=== PATIENT | male | born 1950 | race Caucasian/White ===

== ENCOUNTER → 2020-07-15 08:17 | Outpatient (BNVA) | payer MEDICARE, SELFPAY | PROVIDERS: PCP Internal Medicine; Referring Provider Internal Medicine; Visit Provider Internal Medicine | DX: Z95.2 Presence of prosthetic heart valve (principal); Z51.81 Encounter for therapeutic drug level monitoring; Z79.01 Long term (current) use of anticoagulants | CPT/HCPCS: 85610; 99211 ==

== ENCOUNTER 2020-07-23 06:53 | Outpatient (REF) | payer MEDICARE, SELFPAY ==
[2020-07-23 07:52] LABS: MANUAL DIFF FLAG NO
[2020-07-23 07:56] LABS: Basophils Percent Auto 0.1 % (0-2); Eosinophils Absolute Auto 0.3 X10*3/uL (0.0-0.4); Eosinophils Percent Auto 4.4 % (0-4); Hematocrit 35.2 % (42-52); Hemoglobin 11.3 g/dl (14.0-18.0); Imm Gran Abs Auto 0.02 X10*3/uL (0.00-0.03); Imm Gran Pct Auto 0.3 % (0.0-0.4); Lymphocytes Absolute Auto 1.8 X10*3/uL (1.2-4.9); Lymphocytes Percent Auto 22.9 % (20-40); Mean Corpuscular HGB Conc 32.1 g/dl (31.0-36.0); Mean Corpuscular Hemoglobin 29.4 pg (27.0-33.0); Mean Corpuscular Volume 91.7 fL (80-98); Mean Platelet Volume 10.6 fL (9.4-12.4); Monocytes Absolute Auto 0.7 X10*3/uL (0.1-1.2); Monocytes Percent Auto 8.9 % (2-11); Neutrophils Absolute Auto 4.9 X10*3/uL (2.0-8.3); Neutrophils Percent Auto 63.4 % (45-73); Platelet Count 202 X10*3/uL (160-400); Red Blood Count 3.84 X10*6/uL (4.60-5.80); Red Cell Distribution Width 15.3 % (11.0-16.0); White Blood Count 7.7 X10*3/uL (4.8-10.8)
[2020-07-23 08:01] LABS: Glucose Urine UA NEG (NEG); Leukocyte Esterase Urine NEG (NEG); Nitrite Urine NEG (NEG); PH 7.5 (5.0-8.0); Specific Gravity - Urine 1.015 (1.005-1.025); Urine Blood 3+ (NEG); Urine Ketones NEG (NEG); Urine Protein 2+ MG/DL (NEG-TRACE)
[2020-07-23 08:23] LABS: Alanine Aminotransferase 18 U/L (0-40); Albumin Level 3.8 g/dL (3.5-5.0); Alkaline Phosphatase 61 U/L (39-117); Anion Gap 10 (12-20); Aspartate Amino Transferase 21 U/L (5-37); Bilirubin Total 0.5 mg/dL (0.0-1.0); Blood Urea Nitrogen 37 mg/dL (9-16); Calcium 8.9 mg/dL (8.4-10.2); Carbon Dioxide 27 mmol/L (22-29); Chloride 106 mmol/L (96-108); Cholesterol 163 mg/dL; Estimated Glomerular Filt Rate 57; Glucose Fasting 101 mg/dL (60-99); HDL Cholesterol 70 mg/dL; LDL Cholesterol Calculated 76 mg/dl; Potassium 4.6 mmol/l (3.3-5.1); Sodium 138 mmol/L (135-145); Total Protein 6.3 g/dL (6.5-8.0); Triglycerides 86 mg/dL
[2020-07-23 08:44] LABS: Appearance Urine HAZY; Color Urine YELLOW
[2020-07-23 08:52] LABS: Thyroid Stimulating Hormone 0.29 mIU/mL (0.32-4.0)
[2020-07-23 09:04] LABS: RBC Urine 30-49 /HPF (0); WBC Urine 0 /HPF (0-4)
[2020-07-23 09:27] LABS: Prostate Specific Antigen Scr 5.26 ng/mL (<0.05-4.0)
[2020-07-23 10:06] LABS: Reflex LDLD? No
== END 2020-07-23 06:54 | disposition home or self-care (01) ==
LOC: HO.LAB 06:53
PROVIDERS: PCP Internal Medicine; Visit Provider Internal Medicine
DX: Z00.00 Encounter for general adult medical examination without abnormal findings (principal); Z12.5 Encounter for screening for malignant neoplasm of prostate; E03.9 Hypothyroidism, unspecified; E78.00 Pure hypercholesterolemia, unspecified; I10 Essential (primary) hypertension
CPT/HCPCS: 36415; 80053; 80061; 81001; 81003; 84153; 84443; 85025

== ENCOUNTER → 2020-08-12 07:55 | Outpatient (BNVA) | payer MEDICARE, SELFPAY | PROVIDERS: PCP Internal Medicine; Visit Provider Internal Medicine | DX: Z95.2 Presence of prosthetic heart valve (principal); Z51.81 Encounter for therapeutic drug level monitoring; Z79.01 Long term (current) use of anticoagulants | CPT/HCPCS: 85610; 99211 ==

== ENCOUNTER → 2020-09-02 07:52 | Outpatient (BNVA) | payer MEDICARE, SELFPAY | PROVIDERS: PCP Internal Medicine; Visit Provider Internal Medicine | DX: Z95.2 Presence of prosthetic heart valve (principal); Z51.81 Encounter for therapeutic drug level monitoring; Z79.01 Long term (current) use of anticoagulants | CPT/HCPCS: 85610; 99211 ==

== ENCOUNTER → 2020-09-09 08:32 | Outpatient (BNVA) | payer MEDICARE, SELFPAY | PROVIDERS: PCP Internal Medicine; Visit Provider Internal Medicine | DX: Z95.2 Presence of prosthetic heart valve (principal); Z79.01 Long term (current) use of anticoagulants; Z51.81 Encounter for therapeutic drug level monitoring | CPT/HCPCS: 85610; 99211 ==

== ENCOUNTER 2020-09-20 11:17 | Outpatient (REF) | payer MEDICARE, SELFPAY ==
[2020-09-20 14:14] LABS: Prostate Specific Antigen 2.82 ng/mL (<0.05-4.0)
== END 2020-09-20 11:18 | disposition home or self-care (01) ==
LOC: HO.LAB 11:17
PROVIDERS: PCP Internal Medicine; Visit Provider Internal Medicine
DX: R97.20 Elevated prostate specific antigen [PSA] (principal); Z12.5 Encounter for screening for malignant neoplasm of prostate
CPT/HCPCS: 84153

== ENCOUNTER → 2020-10-07 08:36 | Outpatient (BNVA) | payer MEDICARE, SELFPAY | PROVIDERS: PCP Internal Medicine; Visit Provider Internal Medicine | DX: Z95.2 Presence of prosthetic heart valve (principal); Z51.81 Encounter for therapeutic drug level monitoring; Z79.01 Long term (current) use of anticoagulants | CPT/HCPCS: 85610; 99211 ==

== ENCOUNTER → 2020-10-09 14:11 | Outpatient (BNVA) | payer MEDICARE, SELFPAY | PROVIDERS: PCP Internal Medicine; Visit Provider Internal Medicine | DX: Z95.2 Presence of prosthetic heart valve (principal); Z51.81 Encounter for therapeutic drug level monitoring; Z79.01 Long term (current) use of anticoagulants | CPT/HCPCS: 85610; 99211 ==

== ENCOUNTER → 2020-10-14 08:03 | Outpatient (BNVA) | payer MEDICARE, SELFPAY | PROVIDERS: PCP Internal Medicine; Visit Provider Internal Medicine | DX: Z95.2 Presence of prosthetic heart valve (principal); Z51.81 Encounter for therapeutic drug level monitoring; Z79.01 Long term (current) use of anticoagulants | CPT/HCPCS: 85610; 99211 ==

== ENCOUNTER 2020-10-21 12:37 | Outpatient (REF) | payer MEDICARE, SELFPAY ==
[2020-10-21 13:58] LABS: Blood Urea Nitrogen 26 mg/dL (9-16); Estimated Glomerular Filt Rate > 60
== END 2020-10-21 12:38 | disposition home or self-care (01) ==
LOC: HO.LAB 12:37
PROVIDERS: PCP Internal Medicine; Visit Provider Internal Medicine
DX: N18.30 Chronic kidney disease, stage 3 unspecified (principal)
CPT/HCPCS: 36415; 82565; 84520

== ENCOUNTER → 2020-10-25 13:24 | Outpatient (BNVA) | payer MEDICARE, SELFPAY | PROVIDERS: PCP Internal Medicine; Visit Provider Internal Medicine | DX: Z95.2 Presence of prosthetic heart valve (principal); Z51.81 Encounter for therapeutic drug level monitoring; Z79.01 Long term (current) use of anticoagulants | CPT/HCPCS: 85610; 99211 ==

== ENCOUNTER → 2020-11-21 13:28 | Outpatient (BNVA) | payer MEDICARE, SELFPAY | PROVIDERS: PCP Internal Medicine; Visit Provider Internal Medicine | DX: Z95.2 Presence of prosthetic heart valve (principal); Z51.81 Encounter for therapeutic drug level monitoring; Z79.01 Long term (current) use of anticoagulants | CPT/HCPCS: 85610; 99211 ==

== ENCOUNTER → 2020-12-09 08:50 | Outpatient (BNVA) | payer MEDICARE, SELFPAY | PROVIDERS: PCP Internal Medicine; Visit Provider Internal Medicine | DX: Z95.2 Presence of prosthetic heart valve (principal); Z51.81 Encounter for therapeutic drug level monitoring; Z79.01 Long term (current) use of anticoagulants | CPT/HCPCS: 85610; 99211 ==

== ENCOUNTER → 2020-12-30 08:33 | Outpatient (BNVA) | payer MEDICARE, SELFPAY | PROVIDERS: PCP Internal Medicine; Visit Provider Internal Medicine | DX: Z95.2 Presence of prosthetic heart valve (principal); Z51.81 Encounter for therapeutic drug level monitoring; Z79.01 Long term (current) use of anticoagulants | CPT/HCPCS: 85610; 99211 ==

== ENCOUNTER → 2021-01-06 08:19 | Outpatient (BNVA) | payer MEDICARE, SELFPAY | PROVIDERS: PCP Internal Medicine; Visit Provider Internal Medicine | DX: Z95.2 Presence of prosthetic heart valve (principal); Z51.81 Encounter for therapeutic drug level monitoring; Z79.01 Long term (current) use of anticoagulants | CPT/HCPCS: 85610; 99211 ==

== ENCOUNTER → 2021-01-13 09:47 | Outpatient (BNVA) | payer MEDICARE, SELFPAY | PROVIDERS: PCP Internal Medicine; Visit Provider Internal Medicine | DX: Z95.2 Presence of prosthetic heart valve (principal); Z79.01 Long term (current) use of anticoagulants; Z51.81 Encounter for therapeutic drug level monitoring | CPT/HCPCS: 85610; 99211 ==

== ENCOUNTER → 2021-02-03 08:45 | Outpatient (BNVA) | payer MEDICARE, SELFPAY | PROVIDERS: PCP Internal Medicine; Visit Provider Internal Medicine | DX: Z95.2 Presence of prosthetic heart valve (principal); Z79.01 Long term (current) use of anticoagulants; Z51.81 Encounter for therapeutic drug level monitoring | CPT/HCPCS: 85610; 99211 ==

== ENCOUNTER → 2021-02-24 09:07 | Outpatient (BNVA) | payer MEDICARE, SELFPAY | PROVIDERS: PCP Internal Medicine; Visit Provider Internal Medicine | DX: Z95.2 Presence of prosthetic heart valve (principal); Z51.81 Encounter for therapeutic drug level monitoring; Z79.01 Long term (current) use of anticoagulants | CPT/HCPCS: 36415; 85610; 99212 ==

== ENCOUNTER → 2021-02-27 08:31 | Outpatient (BNVA) | payer MEDICARE, SELFPAY | PROVIDERS: PCP Internal Medicine; Visit Provider Internal Medicine | DX: Z13.89 Encounter for screening for other disorder (principal) | CPT/HCPCS: 99211 ==

== ENCOUNTER → 2021-03-06 09:30 | Outpatient (BNVA) | payer MEDICARE, SELFPAY | PROVIDERS: PCP Internal Medicine; Visit Provider Internal Medicine | DX: Z95.2 Presence of prosthetic heart valve (principal); Z51.81 Encounter for therapeutic drug level monitoring; Z79.01 Long term (current) use of anticoagulants | CPT/HCPCS: 85610; 99211 ==

== ENCOUNTER → 2021-03-11 09:37 | Outpatient (BNVA) | payer MEDICARE, SELFPAY | PROVIDERS: PCP Internal Medicine; Visit Provider Internal Medicine | DX: Z95.2 Presence of prosthetic heart valve (principal); Z51.81 Encounter for therapeutic drug level monitoring; Z79.01 Long term (current) use of anticoagulants | CPT/HCPCS: 85610; 99211 ==

== ENCOUNTER → 2021-03-25 09:28 | Outpatient (BNVA) | payer MEDICARE, SELFPAY | PROVIDERS: PCP Internal Medicine; Visit Provider Internal Medicine | DX: Z95.2 Presence of prosthetic heart valve (principal); Z51.81 Encounter for therapeutic drug level monitoring; Z79.01 Long term (current) use of anticoagulants | CPT/HCPCS: 85610; 99211 ==

== ENCOUNTER → 2021-04-23 09:59 | Outpatient (BNVA) | payer MEDICARE, SELFPAY | PROVIDERS: PCP Internal Medicine; Visit Provider Internal Medicine | DX: Z95.2 Presence of prosthetic heart valve (principal); Z51.81 Encounter for therapeutic drug level monitoring; Z79.01 Long term (current) use of anticoagulants | CPT/HCPCS: 85610; 99211 ==

== ENCOUNTER → 2021-05-07 07:59 | Outpatient (BNVA) | payer MEDICARE, SELFPAY | PROVIDERS: PCP Internal Medicine; Visit Provider Internal Medicine | DX: Z95.2 Presence of prosthetic heart valve (principal); Z51.81 Encounter for therapeutic drug level monitoring; Z79.01 Long term (current) use of anticoagulants | CPT/HCPCS: 85610; 99211 ==

== ENCOUNTER → 2021-05-21 08:26 | Outpatient (BNVA) | payer MEDICARE, SELFPAY | PROVIDERS: PCP Internal Medicine; Visit Provider Internal Medicine | DX: Z95.2 Presence of prosthetic heart valve (principal); Z51.81 Encounter for therapeutic drug level monitoring; Z79.01 Long term (current) use of anticoagulants | CPT/HCPCS: 85610; 99211 ==

== ENCOUNTER → 2021-06-04 08:19 | Outpatient (BNVA) | payer MEDICARE, SELFPAY | PROVIDERS: PCP Internal Medicine; Visit Provider Internal Medicine | DX: Z95.2 Presence of prosthetic heart valve (principal); Z51.81 Encounter for therapeutic drug level monitoring; Z79.01 Long term (current) use of anticoagulants | CPT/HCPCS: 85610; 99211 ==

== ENCOUNTER → 2021-06-23 08:29 | Outpatient (BNVA) | payer MEDICARE, SELFPAY | PROVIDERS: PCP Internal Medicine; Visit Provider Internal Medicine | DX: Z95.2 Presence of prosthetic heart valve (principal); Z51.81 Encounter for therapeutic drug level monitoring; Z79.01 Long term (current) use of anticoagulants | CPT/HCPCS: 85610; 99211 ==

== ENCOUNTER → 2021-07-14 08:19 | Outpatient (BNVA) | payer MEDICARE, SELFPAY | PROVIDERS: PCP Internal Medicine; Visit Provider Internal Medicine | DX: Z95.2 Presence of prosthetic heart valve (principal); Z51.81 Encounter for therapeutic drug level monitoring; Z79.01 Long term (current) use of anticoagulants | CPT/HCPCS: 85610; 99211 ==

== ENCOUNTER 2021-07-29 10:42 | Outpatient (REF) | payer MEDICARE, SELFPAY ==
[2021-07-29 10:46] LABS: MANUAL DIFF FLAG NO
[2021-07-29 11:23] LABS: Basophils Percent Auto 0.2 % (0-2); Eosinophils Absolute Auto 0.3 X10*3/uL (0.0-0.4); Eosinophils Percent Auto 3.9 % (0-4); Hematocrit 35.3 % (42-52); Hemoglobin 11.5 g/dl (14.0-18.0); Imm Gran Abs Auto 0.03 X10*3/uL (0.00-0.03); Imm Gran Pct Auto 0.4 % (0.0-0.4); Lymphocytes Absolute Auto 1.7 X10*3/uL (1.2-4.9); Lymphocytes Percent Auto 20.9 % (20-40); Mean Corpuscular HGB Conc 32.6 g/dl (31.0-36.0); Mean Corpuscular Hemoglobin 28.5 pg (27.0-33.0); Mean Corpuscular Volume 87.6 fL (80-98); Mean Platelet Volume 11.2 fL (9.4-12.4); Monocytes Absolute Auto 0.8 X10*3/uL (0.1-1.2); Monocytes Percent Auto 9.9 % (2-11); Neutrophils Absolute Auto 5.4 X10*3/uL (2.0-8.3); Neutrophils Percent Auto 64.7 % (45-73); Platelet Count 222 X10*3/uL (160-400); Red Blood Count 4.03 X10*6/uL (4.60-5.80); White Blood Count 8.3 X10*3/uL (4.8-10.8)
[2021-07-29 11:33] LABS: Alanine Aminotransferase 21 U/L (0-40); Albumin Level 3.8 g/dL (3.5-5.0); Alkaline Phosphatase 64 U/L (39-117); Anion Gap 12 (12-20); Aspartate Amino Transferase 24 U/L (5-37); Bilirubin Total 0.6 mg/dL (0.0-1.0); Blood Urea Nitrogen 36 mg/dL (9-16); Calcium 9.4 mg/dL (8.4-10.2); Carbon Dioxide 25 mmol/L (22-29); Chloride 109 mmol/L (96-108); Cholesterol 181 mg/dL; Estimated Glomerular Filt Rate 58; Glucose Fasting 96 mg/dL (60-99); HDL Cholesterol 84 mg/dL; LDL Cholesterol Calculated 88 mg/dl; Potassium 4.6 mmol/L (3.3-5.1); Sodium 141 mmol/L (135-145); Total Protein 6.4 g/dL (6.5-8.0); Triglycerides 46 mg/dL
[2021-07-29 11:41] LABS: Reflex LDLD? No
[2021-07-29 11:54] LABS: Appearance Urine CLEAR; Color Urine YELLOW; Glucose Urine UA NEG (NEG); Leukocyte Esterase Urine NEG (NEG); Nitrite Urine NEG (NEG); PH 6.5 (5.0-8.0); Urine Blood 2+ (NEG); Urine Ketones NEG (NEG); Urine Protein 2+ MG/DL (NEG-TRACE)
[2021-07-29 11:55] LABS: TSH reflex Free T4 0.22 uIU/mL (0.32-4.0)
[2021-07-29 12:26] LABS: WBC Urine 0 /HPF (0-4)
[2021-07-29 12:36] LABS: Free T4 (Free Thyroxine) 1.12 ng/dL (0.71-1.85)
== END 2021-07-29 10:43 | disposition home or self-care (01) ==
LOC: HO.LNP 10:42
PROVIDERS: Visit Provider Internal Medicine
DX: Z00.00 Encounter for general adult medical examination without abnormal findings (principal); Z12.5 Encounter for screening for malignant neoplasm of prostate; E03.9 Hypothyroidism, unspecified; E78.00 Pure hypercholesterolemia, unspecified; N18.1 Chronic kidney disease, stage 1; N40.0 Benign prostatic hyperplasia without lower urinary tract symptoms
CPT/HCPCS: 80053; 80061; 81001; 81003; 84153; 84439; 84443; 85025

== ENCOUNTER → 2021-08-11 08:27 | Outpatient (BNVA) | payer MEDICARE, SELFPAY | PROVIDERS: PCP Internal Medicine; Visit Provider Internal Medicine | DX: Z95.2 Presence of prosthetic heart valve (principal); Z51.81 Encounter for therapeutic drug level monitoring; Z79.01 Long term (current) use of anticoagulants | CPT/HCPCS: 85610; 99211 ==

== ENCOUNTER 2021-08-25 13:09 | Outpatient (REF) | payer MEDICARE, SELFPAY ==
--- NOTE | ~2021-08-25 | US_ITS ---
EXAMINATION: US EXTRACRANIAL CAROTID DUPLEX, BILATERAL CLINICAL INFORMATION: This is a 70-year-old male with bilateral carotid artery disease. Hyperlipidemia. COMPARISON: Comparison is made to a previous study dated 04/27/2017 which demonstrated bilateral 0-49% internal carotid artery stenoses. TECHNIQUE: Real-time ultrasound and Doppler techniques (integrating B-mode 2-D vascular images, Doppler spectral analysis and color-flow Doppler imaging) were utilized to interrogate the extracranial carotid arteries, the vertebral arteries and proximal subclavian arteries bilaterally. The degree of stenosis is determined by criteria similar to NASCET. FINDINGS: Right Side: 1. There is minimal atherosclerotic plaque seen in the bifurcation/proximal ICA region. 2. The common carotid artery PSV proximally is 65 cm/s and distally 96 cm/s. 3. The proximal internal carotid artery velocities are 101 cm/s systolic and 14 cm/s diastolic. 4. The proximal external carotid artery PSV is 120 cm/s. 5. The vertebral artery shows antegrade flow. 6. The subclavian artery waveforms are urinary. Left Side: 1. There is minimal atherosclerotic plaque seen in the bifurcation/proximal ICA region. 2. The common carotid artery PSV proximally is 78 cm/s and distally 72 cm/s. 3. The proximal internal carotid artery velocities are 69 cm/s systolic and 20 cm/s diastolic. 4. The proximal external carotid artery PSV is 91 cm/s. 5. The vertebral artery shows antegrade flow. 6. The subclavian artery waveforms are normal in. US/US carotid duplex BI IMPRESSION: 1. RIGHT: Minimal, non-hemodynamically significant stenosis of the proximal right internal carotid artery corresponding to a 0-49% stenosis by velocity criteria. 2. LEFT: Minimal, non-hemodynamically significant stenosis of the proximal left internal carotid artery corresponding to a 0-49% stenosis by velocity criteria. 3. There is no change in the category severity of disease when compared to the previous study dated 04/27/2017. 4. Incidental note is made of an arrhythmia during the duplex portion of the examination. This would be best evaluated by EKG.
== END 2021-08-25 13:10 | disposition home or self-care (01) ==
LOC: HO.US 13:09
PROVIDERS: PCP Internal Medicine; Visit Provider Internal Medicine
DX: I77.9 Disorder of arteries and arterioles, unspecified (principal)
CPT/HCPCS: 93880

== ENCOUNTER → 2021-09-08 08:13 | Outpatient (BNVA) | payer MEDICARE, SELFPAY | PROVIDERS: PCP Internal Medicine; Visit Provider Internal Medicine | DX: Z95.2 Presence of prosthetic heart valve (principal); Z51.81 Encounter for therapeutic drug level monitoring; Z79.01 Long term (current) use of anticoagulants | CPT/HCPCS: 85610; 99211 ==

== ENCOUNTER → 2021-09-15 09:28 | Outpatient (BNVA) | payer MEDICARE, SELFPAY | PROVIDERS: PCP Internal Medicine; Visit Provider Internal Medicine | DX: Z95.2 Presence of prosthetic heart valve (principal); Z51.81 Encounter for therapeutic drug level monitoring; Z79.01 Long term (current) use of anticoagulants | CPT/HCPCS: 85610; 99211 ==

== ENCOUNTER → 2021-10-06 08:44 | Outpatient (BNVA) | payer MEDICARE, SELFPAY | PROVIDERS: PCP Internal Medicine; Visit Provider Internal Medicine | DX: Z95.2 Presence of prosthetic heart valve (principal); Z51.81 Encounter for therapeutic drug level monitoring; Z79.01 Long term (current) use of anticoagulants | CPT/HCPCS: 85610; 99211 ==

== ENCOUNTER → 2021-10-13 08:01 | Outpatient (BNVA) | payer MEDICARE, SELFPAY | PROVIDERS: PCP Internal Medicine; Visit Provider Internal Medicine | DX: Z95.2 Presence of prosthetic heart valve (principal); Z51.81 Encounter for therapeutic drug level monitoring; Z79.01 Long term (current) use of anticoagulants | CPT/HCPCS: 85610; 99211 ==

== ENCOUNTER → 2021-10-24 08:03 | Outpatient (BNVA) | payer MEDICARE, SELFPAY | PROVIDERS: PCP Internal Medicine; Visit Provider Internal Medicine | DX: Z95.2 Presence of prosthetic heart valve (principal); Z51.81 Encounter for therapeutic drug level monitoring; Z79.01 Long term (current) use of anticoagulants | CPT/HCPCS: 85610; 99211 ==

== ENCOUNTER → 2021-10-28 08:30 | Outpatient (BNVA) | payer MEDICARE, SELFPAY | PROVIDERS: PCP Internal Medicine; Visit Provider Internal Medicine | DX: Z95.2 Presence of prosthetic heart valve (principal); Z51.81 Encounter for therapeutic drug level monitoring; Z79.01 Long term (current) use of anticoagulants | CPT/HCPCS: 85610; 99211 ==

== ENCOUNTER → 2021-11-11 08:03 | Outpatient (BNVA) | payer MEDICARE, SELFPAY | PROVIDERS: PCP Internal Medicine; Visit Provider Internal Medicine | DX: Z95.2 Presence of prosthetic heart valve (principal); Z51.81 Encounter for therapeutic drug level monitoring; Z79.01 Long term (current) use of anticoagulants | CPT/HCPCS: 85610; 99211 ==

== ENCOUNTER → 2021-12-03 08:02 | Outpatient (BNVA) | payer MEDICARE, SELFPAY | PROVIDERS: PCP Internal Medicine; Visit Provider Internal Medicine | DX: Z95.2 Presence of prosthetic heart valve (principal); Z51.81 Encounter for therapeutic drug level monitoring; Z79.01 Long term (current) use of anticoagulants | CPT/HCPCS: 85610; 99211 ==

== ENCOUNTER → 2021-12-15 08:25 | Outpatient (BNVA) | payer MEDICARE, SELFPAY | PROVIDERS: PCP Internal Medicine; Visit Provider Internal Medicine | DX: Z95.2 Presence of prosthetic heart valve (principal); Z51.81 Encounter for therapeutic drug level monitoring; Z79.01 Long term (current) use of anticoagulants | CPT/HCPCS: 85610; 99211 ==

== ENCOUNTER → 2022-01-05 08:48 | Outpatient (BNVA) | payer MEDICARE, SELFPAY | PROVIDERS: PCP Internal Medicine; Visit Provider Internal Medicine | DX: Z95.2 Presence of prosthetic heart valve (principal); Z51.81 Encounter for therapeutic drug level monitoring; Z79.01 Long term (current) use of anticoagulants | CPT/HCPCS: 85610; 99211 ==

== ENCOUNTER → 2022-02-02 08:16 | Outpatient (BNVA) | payer MEDICARE, SELFPAY | PROVIDERS: PCP Internal Medicine; Visit Provider Internal Medicine | DX: Z95.2 Presence of prosthetic heart valve (principal); Z79.01 Long term (current) use of anticoagulants; Z51.81 Encounter for therapeutic drug level monitoring | CPT/HCPCS: 85610 ==

== ENCOUNTER → 2022-03-02 08:24 | Outpatient (BNVA) | payer MEDICARE, SELFPAY | PROVIDERS: PCP Internal Medicine; Visit Provider Internal Medicine | DX: Z95.2 Presence of prosthetic heart valve (principal); Z79.01 Long term (current) use of anticoagulants; Z51.81 Encounter for therapeutic drug level monitoring | CPT/HCPCS: 85610; 99211 ==

== ENCOUNTER 2022-03-12 10:45 | Outpatient (REF) | payer MEDICARE, SELFPAY ==
[2022-03-12 11:03] LABS: Alanine Aminotransferase 22 U/L (0-40); Albumin Level 3.9 g/dL (3.5-5.0); Alkaline Phosphatase 65 U/L (39-117); Aspartate Amino Transferase 24 U/L (5-37); Bilirubin Direct 0.4 mg/dL (0.0-0.5); Bilirubin Total 0.8 mg/dL (0.0-1.0); Cholesterol 154 mg/dL; HDL Cholesterol 60 mg/dL; LDL Cholesterol Calculated 73 mg/dl; Total Protein 6.7 g/dL (6.5-8.0); Triglycerides 105 mg/dL
[2022-03-12 13:45] LABS: Reflex LDLD? No
== END 2022-03-12 10:46 | disposition home or self-care (01) ==
LOC: HO.LNP 10:45
PROVIDERS: PCP Internal Medicine; Visit Provider Internal Medicine
DX: E78.00 Pure hypercholesterolemia, unspecified (principal)
CPT/HCPCS: 80061; 80076

== ENCOUNTER → 2022-03-30 08:00 | Outpatient (BNVA) | payer MEDICARE, SELFPAY | PROVIDERS: PCP Internal Medicine; Visit Provider Internal Medicine | DX: Z95.2 Presence of prosthetic heart valve (principal); Z79.01 Long term (current) use of anticoagulants; Z51.81 Encounter for therapeutic drug level monitoring | CPT/HCPCS: 85610; 99211 ==

== ENCOUNTER → 2022-04-27 08:06 | Outpatient (BNVA) | payer MEDICARE, SELFPAY | PROVIDERS: PCP Internal Medicine; Visit Provider Internal Medicine | DX: Z95.2 Presence of prosthetic heart valve (principal); Z79.01 Long term (current) use of anticoagulants; Z51.81 Encounter for therapeutic drug level monitoring | CPT/HCPCS: 85610; 99211 ==

== ENCOUNTER → 2022-05-01 08:06 | Outpatient (BNVA) | payer MEDICARE, SELFPAY | PROVIDERS: PCP Internal Medicine; Visit Provider Internal Medicine | DX: Z95.2 Presence of prosthetic heart valve (principal); Z79.01 Long term (current) use of anticoagulants; Z51.81 Encounter for therapeutic drug level monitoring | CPT/HCPCS: 85610; 99211 ==

== ENCOUNTER → 2022-05-11 08:20 | Outpatient (BNVA) | payer MEDICARE, SELFPAY | PROVIDERS: PCP Internal Medicine; Visit Provider Internal Medicine | DX: Z95.2 Presence of prosthetic heart valve (principal); Z79.01 Long term (current) use of anticoagulants; Z51.81 Encounter for therapeutic drug level monitoring | CPT/HCPCS: 85610; 99211 ==

== ENCOUNTER 2022-05-25 07:25 | Outpatient (REF) | payer MEDICARE, SELFPAY ==
--- NOTE | ~2022-05-25 | CT_ITS ---
EXAMINATION: CT CHEST WITHOUT CONTRAST CLINICAL INFORMATION: Solitary pulmonary nodule. COMPARISON: None TECHNIQUE: Multidetector volumetric CT imaging of the chest was done. Axial MIP volume rendering provided. Sagittal and coronal reformatted images were obtained. This CT examination was performed using dose optimization techniques as appropriate, variously including the following: *Automated exposure control *Adjustment of mA and/or kV according to patient size (this includes techniques or standardized protocols for targeted exams where dose is matched to indication/reason for exam; i.e. extremities or head) *Use of iterative reconstruction technique DLP: 234 mGy-cm FINDINGS: ACCOUNTING OFFICER: Unremarkable. LUNGS: There is persistent linear scarring in the left upper lobe. Several 2 mm and 3 mm calcified nodules in the right lower lobe are stable. There is a 4 mm perivascular noncalcified nodule right lower lobe axial image 333/9, new 2 mm noncalcified nodule right lower lobe axial image 396/9 and 393/9. MEDIASTINUM: Heart size and the great vessels are normal caliber. Central trachea and the bronchi widely patent. The coronary artery calcifications and aortic valve calcifications. No change in the aortic valve prosthesis. No pericardial effusion. Small shotty lymph nodes seen in the mediastinum. PLEURA: There is no pleural effusion. No pleural mass or thickening. AXILLA: No abnormal axillary lymph nodes seen. The chest wall is unremarkable. UPPER ABDOMEN: Visualized liver, spleen, pancreas and bilateral adrenal glands unremarkable. OSSEOUS STRUCTURES: There is moderate spondylosis throughout dorsal spine. No lytic process seen. CT/CT chest wo con IMPRESSION: Previously visualized calcified nodules are stable. There is a new 4 mm noncalcified nodule perivascular right lower lobe. Also visualized is a 2 mm noncalcified nodule right lower lobe. Small shotty lymph nodes. Recommend follow-up CT chest without contrast in one year based on patient's risk factors. Fleischner guidelines were followed.
== END 2022-05-25 07:26 | disposition home or self-care (01) ==
LOC: HO.CT 07:25
PROVIDERS: PCP Internal Medicine; Visit Provider Internal Medicine
DX: R91.1 Solitary pulmonary nodule (principal)
CPT/HCPCS: 71250

== ENCOUNTER → 2022-06-01 07:58 | Outpatient (BNVA) | payer MEDICARE, SELFPAY | PROVIDERS: PCP Internal Medicine; Visit Provider Internal Medicine | DX: Z95.2 Presence of prosthetic heart valve (principal); Z51.81 Encounter for therapeutic drug level monitoring; Z79.01 Long term (current) use of anticoagulants | CPT/HCPCS: 85610; 99211 ==

== ENCOUNTER → 2022-06-17 07:59 | Outpatient (BNVA) | payer MEDICARE, SELFPAY | PROVIDERS: PCP Internal Medicine; Visit Provider Internal Medicine | DX: Z95.2 Presence of prosthetic heart valve (principal); Z51.81 Encounter for therapeutic drug level monitoring; Z79.01 Long term (current) use of anticoagulants | CPT/HCPCS: 85610; 99211 ==

== ENCOUNTER → 2022-06-24 08:05 | Outpatient (BNVA) | payer MEDICARE, SELFPAY | PROVIDERS: PCP Internal Medicine; Visit Provider Internal Medicine | DX: Z95.2 Presence of prosthetic heart valve (principal); Z79.01 Long term (current) use of anticoagulants; Z51.81 Encounter for therapeutic drug level monitoring | CPT/HCPCS: 85610; 99211 ==

== ENCOUNTER → 2022-07-06 08:00 | Outpatient (BNVA) | payer MEDICARE, SELFPAY | PROVIDERS: PCP Internal Medicine; Visit Provider Internal Medicine | DX: Z95.2 Presence of prosthetic heart valve (principal); Z79.01 Long term (current) use of anticoagulants; Z51.81 Encounter for therapeutic drug level monitoring | CPT/HCPCS: 85610; 99211 ==

== ENCOUNTER → 2022-07-10 07:59 | Outpatient (BNVA) | payer MEDICARE, SELFPAY | PROVIDERS: PCP Internal Medicine; Visit Provider Internal Medicine | DX: Z95.2 Presence of prosthetic heart valve (principal); Z79.01 Long term (current) use of anticoagulants; Z51.81 Encounter for therapeutic drug level monitoring | CPT/HCPCS: 85610; 99211 ==

== ENCOUNTER → 2022-07-13 08:03 | Outpatient (BNVA) | payer MEDICARE, SELFPAY | PROVIDERS: PCP Internal Medicine; Visit Provider Internal Medicine | DX: Z95.2 Presence of prosthetic heart valve (principal); Z51.81 Encounter for therapeutic drug level monitoring; Z79.01 Long term (current) use of anticoagulants | CPT/HCPCS: 85610; 99211 ==

== ENCOUNTER → 2022-07-23 08:09 | Outpatient (BNVA) | payer MEDICARE, SELFPAY | PROVIDERS: PCP Internal Medicine; Visit Provider Internal Medicine | DX: Z95.2 Presence of prosthetic heart valve (principal); Z79.01 Long term (current) use of anticoagulants; Z51.81 Encounter for therapeutic drug level monitoring | CPT/HCPCS: 85610; 99211 ==

== ENCOUNTER 2022-07-31 11:08 | Outpatient (REF) | payer MEDICARE, SELFPAY ==
[2022-07-31 11:12] LABS: MANUAL DIFF FLAG NO
[2022-07-31 11:57] LABS: Appearance Urine Clear; Basophils Percent Auto 0.2 % (0-2); Color Urine Yellow; Eosinophils Absolute Auto 0.5 X10*3/uL (0.0-0.4); Eosinophils Percent Auto 5.3 % (0-4); Glucose Urine UA Negative (Negative); Hematocrit 43.6 % (42.0-52.0); Hemoglobin 14.3 g/dl (14.0-18.0); Imm Gran Abs Auto 0.03 X10*3/uL (0.00-0.03); Imm Gran Pct Auto 0.3 % (0.0-0.4); Leukocyte Esterase Urine Negative (Negative); Lymphocytes Absolute Auto 2.2 X10*3/uL (1.2-4.9); Lymphocytes Percent Auto 24.6 % (20-40); Mean Corpuscular HGB Conc 32.8 g/dl (31.0-36.0); Mean Corpuscular Hemoglobin 29.9 pg (27.0-33.0); Mean Corpuscular Volume 91.2 fL (80.0-98.0); Mean Platelet Volume 10.4 fL (9.4-12.4); Monocytes Absolute Auto 0.9 X10*3/uL (0.1-1.2); Monocytes Percent Auto 9.6 % (2-11); Neutrophils Absolute Auto 5.4 x10*3/uL (2.0-8.3); Nitrite Urine Negative (Negative); Platelet Count 262 X10*3/uL (160-400); Red Blood Count 4.78 X10*6/uL (4.60-5.80); Red Cell Distribution Width 13.7 % (11.0-16.0); Specific Gravity - Urine 1.015 (1.005-1.025); UMIC TRIGGER UA YES; Urine Blood Large (3+) (Negative); Urine Ketones Negative (Negative); Urine Protein 100 (2+) mg/dL (Neg-Trace); White Blood Count 9.1 X10*3/uL (4.8-10.8)
[2022-07-31 12:08] LABS: Bacteria Urine None Seen (None Seen); Hyaline Casts Urine 0-2 /LPF (0-2); RBC Urine >20 /HPF (0-2); Squamous Epithelial Cell Urine 0-2 /HPF (0-2); WBC Urine 0-5 /HPF (0-5)
[2022-07-31 12:41] LABS: Alanine Aminotransferase 21 U/L (0-40); Albumin Level 4.2 g/dL (3.5-5.0); Alkaline Phosphatase 92 U/L (39-117); Anion Gap 18 (12-20); Aspartate Amino Transferase 24 U/L (5-37); Bilirubin Total 0.7 mg/dL (0.0-1.0); Blood Urea Nitrogen 38 mg/dL (9-16); Calcium 9.6 mg/dL (8.4-10.2); Carbon Dioxide 24 mmol/L (22-29); Chloride 104 mmol/L (96-108); Cholesterol 212 mg/dL; Estimated Glomerular Filt Rate 43; Glucose Fasting 108 mg/dL (60-99); HDL Cholesterol 86 mg/dL; LDL Cholesterol Calculated 110 mg/dl; PSA,Total (Free>4and<10) 4.04 ng/mL (0.00-4.00); Potassium 4.5 mmol/L (3.3-5.1); Sodium 141 mmol/L (135-145); TSH reflex Free T4 0.04 uIU/mL (0.32-4.0); Total Protein 7.6 g/dL (6.5-8.0); Triglycerides 83 mg/dL
[2022-07-31 14:01] LABS: Free T4 (Free Thyroxine) 1.51 ng/dL (0.71-1.85)
[2022-08-03 09:41] LABS: Free Prostate Spec Ag 1.5 ng/mL; Percent Free Prostate Spec Ag 31 % (calc) (>25); Prostate Specific Ag Total 4.8 ng/mL (< OR = 4.0)
== END 2022-07-31 11:09 | disposition home or self-care (01) ==
LOC: HO.LNP 11:08
PROVIDERS: Visit Provider Internal Medicine
DX: Z00.00 Encounter for general adult medical examination without abnormal findings (principal); I10 Essential (primary) hypertension; E03.9 Hypothyroidism, unspecified; E78.00 Pure hypercholesterolemia, unspecified; N18.1 Chronic kidney disease, stage 1; N40.0 Benign prostatic hyperplasia without lower urinary tract symptoms; Z12.5 Encounter for screening for malignant neoplasm of prostate
CPT/HCPCS: 80053; 80061; 81001; 84153; 84154; 84439; 84443; 85025

== ENCOUNTER → 2022-09-11 13:12 | Outpatient (BNVA) | payer MEDICARE, SELFPAY | PROVIDERS: PCP Internal Medicine; Visit Provider Internal Medicine | DX: Z95.2 Presence of prosthetic heart valve (principal); Z79.01 Long term (current) use of anticoagulants; Z51.81 Encounter for therapeutic drug level monitoring | CPT/HCPCS: 85610; 99211 ==

== ENCOUNTER → 2022-10-08 08:07 | Outpatient (BNVA) | payer MEDICARE, SELFPAY | PROVIDERS: PCP Internal Medicine; Visit Provider Internal Medicine | DX: Z95.2 Presence of prosthetic heart valve (principal); Z79.01 Long term (current) use of anticoagulants; Z51.81 Encounter for therapeutic drug level monitoring | CPT/HCPCS: 85610; 99211 ==

== ENCOUNTER 2022-10-08 10:19 | Outpatient (REF) | payer MEDICARE, SELFPAY ==
[2022-10-08 11:15] LABS: PSA,Total (Free>4and<10) 3.65 ng/mL (0.00-4.00)
== END 2022-10-08 10:20 | disposition home or self-care (01) ==
LOC: HO.LNP 10:19
PROVIDERS: PCP Internal Medicine; Visit Provider Internal Medicine
DX: N40.0 Benign prostatic hyperplasia without lower urinary tract symptoms (principal); Z12.5 Encounter for screening for malignant neoplasm of prostate
CPT/HCPCS: 84153

== ENCOUNTER → 2022-10-13 15:21 | Outpatient (BNVA) | payer MEDICARE, SELFPAY | PROVIDERS: PCP Internal Medicine; Visit Provider Internal Medicine | DX: Z95.2 Presence of prosthetic heart valve (principal); Z79.01 Long term (current) use of anticoagulants; Z51.81 Encounter for therapeutic drug level monitoring | CPT/HCPCS: 85610; 99211 ==

== ENCOUNTER → 2022-10-19 08:00 | Outpatient (BNVA) | payer MEDICARE, SELFPAY | PROVIDERS: PCP Internal Medicine; Visit Provider Internal Medicine | DX: Z95.2 Presence of prosthetic heart valve (principal); Z79.01 Long term (current) use of anticoagulants; Z51.81 Encounter for therapeutic drug level monitoring | CPT/HCPCS: 85610; 99211 ==

== ENCOUNTER 2022-11-02 10:14 | Emergency (ER) | payer MEDICARE, SELFPAY ==
--- NOTE | ~2022-11-02 | XR_ITS ---
EXAMINATION: XR WRIST, RIGHT CLINICAL INFORMATION: Pain and swelling following injury. COMPARISON: None TECHNIQUE: Right wrist is imaged in 4 views. FINDINGS: There are posttraumatic changes in the right wrist, some could be chronic or subacute. There is dorsal and volar soft tissue swelling. The ulnar variance is neutral. The distal radius and ulnar appear intact. There is abnormal widening between the lunate and navicular with proximal migration of the capitate consistent with scapholunate ligament disruption. The navicular appears foreshortened and there are questionable small ossific fragments adjacent to the proximal pole. No dislocation. There are atherosclerotic calcifications vasculature. XR/XR wrist RT 2V IMPRESSION: -Scapholunate ligament disruption with proximal migration capitate. -Dorsal and volar soft tissue swelling with foreshortening of navicular and suspicion of small ossific fragments adjacent to proximal pole. Further characterization of the carpal bones for acute fracture may be performed with noncontrast CT wrist.
[2022-11-02 10:17] VITALS: BP 165/75; PULSE 84; RESP 16; TEMP 35.8; O2SAT 98; BMI 34.5
--- NOTE | 2022-11-02 10:34 | ED_ITS ---
HPI - Extremity Problem General Chief complaint: Extremity Injury, Upper Stated complaint: R wrist pain Time Seen by Provider: 11/02/22 10:34 Source: patient Mode of arrival: ambulatory Limitations: no limitations History of Present Illness HPI Narrative: Patient is a 72 year old assigned male at with a history of anti-coagulant use presenting to the emergency department today with right wrist pain. Patient states that 6-8 weeks ago he hit his wrist with his phone and it has been painful ever since. Patient states that he is also noticing some decreased ROM of both of his shoulders. Patient denies any dizziness, lightheadedness, abdominal pain, nausea, vomiting, fever, chills, blurry vision, double vision, loss of vision, chest pain, difficulty breathing, shortness of breath, back pain, night sweats, pain with urination, increased urinary frequency, increased urinary urgency, blood in his urine or stool, syncope or a near syncopal episode, recent trauma or falls, bowel incontinence, bladder incontinence, bowel retention, bladder retention, or any other complaints at this time. MD Complaint: extremity pain Onset (ago): week(s) (6-8) Pain Consistency: constant Severity scale (1-10): 3 Relieving factors: nothing Exacerbating factors: nothing Associated symptoms: denies other symptoms Related Data Home Medications Medication Instructions Recorded Confirmed warfarin 5 mg tablet 5 mg PO DAILY 10/07/20 10/19/22 amlodipine 10 mg tablet 10 mg PO DAILY 01/06/21 10/19/22 metoprolol succinate 25 mg 25 mg PO DAILY 01/06/21 10/19/22 tablet,extended release 24 hr rosuvastatin 40 mg tablet 40 mg PO DAILY 01/06/21 10/19/22 tamsulosin 0.4 mg capsule (Flomax) 0.4 mg PO DAILY 05/07/21 10/19/22 losartan 25 mg tablet 25 mg PO DAILY 10/06/21 10/19/22 ferrous sulfate 325 mg (65 mg 65 mg PO DAILY 11/11/21 10/19/22 iron) tablet (iron) levothyroxine 150 mcg tablet 150 mcg PO QAM 10/19/22 10/19/22 Allergies Allergy/AdvReac Type Severity Reaction Status Date / Time diphenhydramine Allergy Intermediate RESTLESS Verified 11/02/22 10:19 [From BENADRYL] LEGS lisinopril [LISINOPRIL] Allergy Intermediate DIZZINESS Verified 11/02/22 10:19 Lisiopril/HCTZ Allergy Unknown dizziness Uncoded 10/19/22 08:15 Review of Systems Constitutional: Constitutional: Reports no additional constitutional complaints, Denies chills, Denies fever(s) and Denies night sweats Eyes: Eyes: Reports no additional eye complaints, Denies blurry vision, Denies change in vision, Denies diplopia, Denies eye discharge, Denies loss of vision and Denies eye pain ENT: Denies dizziness Cardiovascular: Cardiovascular: Reports no additional cardiovascular complaints, Denies chest pain, Denies lightheadedness, Denies Loss of Consciousness and Denies dyspnea Respiratory: Respiratory: Reports no additional respiratory complaints and Denies dyspnea Gastrointestinal: Gastrointestinal: Reports no additional gastrointestinal complaints, Denies abdominal pain, Denies melena, Denies hematochezia, Denies change in bowel habits and Denies change in stool character Genitourinary: Genitourinary: Reports no additional male genitourinary complai nts, Denies hematuria, Denies oliguria, Denies difficulty urinating, Denies dysuria, Denies urinary frequency, Denies urinary hesitancy, Denies urinary incontinence and Denies urinary urgency Musculoskeletal: Musculoskeletal: Reports no additional musculoskeletal complaints, Denies numbness and Denies tingling Comments: right wrist pain Neurologic: Denies dizziness, Denies loss of vision, Denies numbness and Denies tingling Psychiatric: Psychiatric: Reports no additional psychiatric complaints Endocrine: Endocrine: Reports no additional endocrine complaints Hematologic/Lymphatic: Hematologic/Lymphatic: Reports no additional hematologic/lymphatic complaints Allergic/Immunologic: Allergic/Immunologic: Reports no additional allergic/immunologic complaints [facility] Past Medical History Attestation statement: The following information was validated with the patient. Source: old records reviewed and nursing notes reviewed Social History Social History Advance Directives: No Advance Directives Information Provided: Yes Physical Exam Vital Signs: Vital Signs: Last Vital Signs Temp 96.5 F L 11/02/22 10:17 Pulse 84 11/02/22 10:17 Resp 16 11/02/22 10:17 BP 165/75 H 11/02/22 10:17 Pulse Ox 98 11/02/22 10:17 O2 Del Method 11/02/22 10:17 BMI result Body Mass Index 34.5 Const: General: cooperative, no acute distress, alert and awake Nutritional Appearance: well nourished Orientation/consciousness: patient oriented x3 Limitations: no limitations HEENT: Head: Yes normal to inspection and Yes atraumatic Ears: hearing grossly normal bilaterally and external ears normal General nose exam: Normal external nose present, no nasal discharge noted and no epistaxis Face and sinus: Yes normal facial exam, No abrasion and No laceration Mouth: Normal oral and palatal mucosa present, no drooling and no muffled voice Eyes: General: appearance normal, both eyes and all related structures Periorbital: periorbital findings normal Eyelids: Yes eyelids normal Conjunctivae: conjunctivae normal Pupils: Equal, round and reactive pupils present EOM: EOMs intact bilaterally Neck: Neck: Yes normal visual inspection, Yes full ROM and Yes no lymphadenopathy Chest: Chest palpation & inspection: normal inspection of the chest Resp: Effort & Inspection: normal respiratory effort and able to speak in complete sentences Auscultation: clear to auscultation bilaterally Cardio: Rate: regular rate Rhythm: regular rhythm GI: Inspection: Yes normal to inspection Palpation (GI): Soft to palpation, not firm, nontender, no guarding and not rigid Neuro: General: patient oriented x3 and moves all extremities Cranial nerves: Yes Equal, round and reactive pupils present Cognition (Neuro): normal cognition Motor exam (neuro): 5/5 motor strength present throughout Sensory Exam: Normal double simultaneous stimulation for sensation Coordination: [id number] test normal Extrem: General: Yes normal to inspection, Yes full ROM and Yes capillary refill normal Psych: Appearance: grossly normal Mental Status: mental status grossly normal Affect: normal affect Attitude: cooperative Thought process: Normal thought process present Thought content: Normal thought content present Insight: Good insight present (Psych) Medical Decision Making Medical Decision Making MDM Narrative: Patient is a 72 year old assigned male at with a history of anti-coagulant use presenting to the emergency department today with right wrist pain and bilateral shoulder pain. Patient's physical exam was unremarkable. Patient's right wrist x-ray showed scapholunate ligament disruption. I explained my physical exam findings as well as all test results to the patient. I answered all questions asked by the patient. Patient's right wrist was placed into a velcro splint, without incident. I stressed the importance of the patient taking his medication as prescribed. I stressed the importance of the patient followi ng up with his primary care provider and an orthopedic provider. I stressed the importance of the patient returning to the emergency department immediately if his symptoms were to worsen or if he were to develop any dizziness, shortness of breath, difficulty breathing, chest pain, blurry vision, loss of vision, nausea, vomiting, abdominal pain, fever, chills, back pain, or any other complaints. Patient verbalized agreement and understanding with this treatment plan and discharge. Differential Diagnosis Differential Diagnoses: The differential diagnosis associated with the presentation includes wrist injury, wrist pain Radiology Impression Discussion of test interpretation with radiology: I have reviewed the radiologist's reading. Radiologist Impression: My interpretation is in agreement with the radiologist's impression of this imaging study. EXAMINATION: XR WRIST, RIGHT CLINICAL INFORMATION: Pain and swelling following injury.? COMPARISON: None? TECHNIQUE: Right wrist is imaged in 4 views. FINDINGS: There are posttraumatic changes in the right wrist, some could be chronic or subacute. There is dorsal and volar soft tissue swelling. The ulnar variance is neutral. The distal radius and ulnar appear intact. There is abnormal widening between the lunate and navicular with proximal migration of the capitate consistent with scapholunate ligament disruption. The navicular appears foreshortened and there are questionable small ossific fragments adjacent to the proximal pole. No dislocation. There are atherosclerotic calcifications vasculature. XR/XR wrist RT 2V IMPRESSION: -Scapholunate ligament disruption with proximal migration capitate. ? -Dorsal and volar soft tissue swelling with foreshortening of navicular and suspicion of small ossific fragments adjacent to proximal pole. Further characterization of the carpal bones for acute fracture may be performed with noncontrast CT wrist. Dictated By: Rojas Duron MD Signed By: Electronically signed by Rojas Duron MD 11/02/22 1132 Procedures Orthopedic Splinting/Casting Injury #1: Side: right Upper Extremity Injury Location: wrist Upper Extremity Immobilizer: thumb spica Discharge Plan Discharge Clinical Impression: Injury of wrist Patient Disposition: Home, Self-Care Instructions: Wrist Injury (ED) Additional Instructions: Follow up with your primary care provider and an orthopedic provider. Return to the emergency department immediately if your symptoms worsen or if you develop any dizziness, shortness of breath, difficulty breathing, chest pain, blurry vision, loss of vision, nausea, vomiting, abdominal pain, fever, chills, back pain, or any other complaints. Prescriptions: No Action amlodipine 10 mg tablet 10 mg PO DAILY rosuvastatin 40 mg tablet 40 mg PO DAILY metoprolol succinate 25 mg tablet extended release 24 hr 25 mg PO DAILY warfarin 5 mg tablet 5 mg PO DAILY Protocol: Dose Management Condition: Wednesday (Week One) Dose/Route: 10 mg Instruction: 2 x 5 mg tablets Condition: Wednesday Dose/Route: 12.5 mg Instruction: 2.5 x 5 mg tablets Condition: Wednesday Dose/Route: 10 mg Instruction: 2 x 5 mg tablets Condition: Wednesday Dose/Route: 12.5 mg Instruction: 2.5 x 5 mg tablets Condition: Dose/Route: 10 mg Instruction: 2 x 5 mg tablets Condition: Wednesday Dose/Route: 12.5 mg Instruction: 2.5 x 5 mg tablets Condition: Wednesday Dose/Route: 10 mg Instruction: 2 x 5 mg tablets Condition: Wednesday (Week Two) Dose/Route: 10 mg Instruction: 2 x 5 mg tablets Condition: Wednesday Dose/Route: 12.5 mg Instruction: 2.5 x 5 mg tablets Condition: Wednesday Dose/Route: 10 mg Instruction: 2 x 5 mg tablets Condition: Wednesday Dose/Route: 12.5 mg Instruction: 2.5 x 5 mg tablets Condition: Dose/Route: 10 mg Instruction: 2 x 5 mg tablets Condition: Wednesday Dose/Route: 12.5 mg Instruction: 2.5 x 5 mg tablets Condition: Wednesday Dose/Route: 10 mg Instruction: 2 x 5 mg tablets Protocol Text: Adjustment Start Date: Wednesday10/19/22 INR Value: 2.6 INR Date: 10/19/22 Recheck Date: 11/09/22 Additional Instructions: KEEP UP THE GREENS WHILE TAKING TYLNEOL AND WEEKLY - EAT A MIX OF ORANGE REDS AND GREENS tamsulosin [Flomax] 0.4 mg capsule 0.4 mg PO DAILY losartan 25 mg tablet 25 mg PO DAILY ferrous sulfate [iron] 325 mg (65 mg iron) tablet 65 mg PO DAILY levothyroxine 150 mcg tablet 150 mcg PO QAM Referrals: [facility] [Provider Group] (Call to establish and follow up with an orthopedic provider. ) Teto Gary MD [Primary Care Provider] - Print Language: Arabic
--- NOTE | 2022-11-02 11:14 | PC.NURSE ---
pt resting on stretcher at this time, no apparent distress, awaiting xray results
== END 2022-11-02 11:49 | disposition home or self-care (01) ==
PROVIDERS: Emergency Provider Emergency Medicine; PCP Internal Medicine
DX: S69.91XA Unspecified injury of right wrist, hand and finger(s), initial encounter (principal); W22.8XXA Striking against or struck by other objects, initial encounter; Z79.01 Long term (current) use of anticoagulants; Z79.02 Long term (current) use of antithrombotics/antiplatelets; Z79.899 Other long term (current) drug therapy; Y93.89 Activity, other specified; Y92.019 Unspecified place in single-family (private) house as the place of occurrence of the external cause; Y99.9 Unspecified external cause status
CPT/HCPCS: 29125; 73100; 99283

== ENCOUNTER → 2022-11-09 08:03 | Outpatient (BNVA) | payer MEDICARE, SELFPAY | PROVIDERS: PCP Internal Medicine; Visit Provider Internal Medicine | DX: Z95.2 Presence of prosthetic heart valve (principal); Z51.81 Encounter for therapeutic drug level monitoring; Z79.01 Long term (current) use of anticoagulants | CPT/HCPCS: 85610; 99211 ==

== ENCOUNTER → 2022-11-23 08:03 | Outpatient (BNVA) | payer MEDICARE, SELFPAY | PROVIDERS: PCP Internal Medicine; Visit Provider Internal Medicine | DX: Z95.2 Presence of prosthetic heart valve (principal); Z79.01 Long term (current) use of anticoagulants; Z51.81 Encounter for therapeutic drug level monitoring | CPT/HCPCS: 85610; 99211 ==

== ENCOUNTER → 2022-12-10 13:54 | Outpatient (BNVA) | payer MEDICARE, SELFPAY | PROVIDERS: PCP Internal Medicine; Visit Provider Internal Medicine | DX: Z95.2 Presence of prosthetic heart valve (principal); Z79.01 Long term (current) use of anticoagulants; Z51.81 Encounter for therapeutic drug level monitoring | CPT/HCPCS: 85610; 99211 ==

== ENCOUNTER → 2022-12-21 08:00 | Outpatient (BNVA) | payer MEDICARE, SELFPAY | PROVIDERS: PCP Internal Medicine; Visit Provider Internal Medicine | DX: Z95.2 Presence of prosthetic heart valve (principal); Z79.01 Long term (current) use of anticoagulants; Z51.81 Encounter for therapeutic drug level monitoring | CPT/HCPCS: 85610; 99211 ==

== ENCOUNTER → 2022-12-28 08:01 | Outpatient (BNVA) | payer MEDICARE, SELFPAY | PROVIDERS: PCP Internal Medicine; Visit Provider Internal Medicine | DX: Z95.2 Presence of prosthetic heart valve (principal); Z79.01 Long term (current) use of anticoagulants; Z51.81 Encounter for therapeutic drug level monitoring | CPT/HCPCS: 85610; 99211 ==

== ENCOUNTER → 2023-01-11 08:03 | Outpatient (BNVA) | payer MEDICARE, SELFPAY | PROVIDERS: PCP Internal Medicine; Visit Provider Internal Medicine | DX: Z95.2 Presence of prosthetic heart valve (principal); Z79.01 Long term (current) use of anticoagulants; Z51.81 Encounter for therapeutic drug level monitoring | CPT/HCPCS: 85610; 99211 ==

== ENCOUNTER → 2023-01-29 07:47 | Outpatient (BNVA) | payer MEDICARE, SELFPAY | PROVIDERS: PCP Internal Medicine; Visit Provider Internal Medicine | DX: Z95.2 Presence of prosthetic heart valve (principal); Z79.01 Long term (current) use of anticoagulants; Z51.81 Encounter for therapeutic drug level monitoring | CPT/HCPCS: 85610; 99211 ==

== ENCOUNTER → 2023-02-01 08:00 | Outpatient (BNVA) | payer MEDICARE, SELFPAY | PROVIDERS: PCP Internal Medicine; Visit Provider Internal Medicine | DX: Z95.2 Presence of prosthetic heart valve (principal); Z79.01 Long term (current) use of anticoagulants; Z51.81 Encounter for therapeutic drug level monitoring | CPT/HCPCS: 85610; 99211 ==

== ENCOUNTER → 2023-02-08 08:36 | Outpatient (BNVA) | payer MEDICARE, SELFPAY | PROVIDERS: PCP Internal Medicine; Visit Provider Internal Medicine | DX: Z95.2 Presence of prosthetic heart valve (principal); Z79.01 Long term (current) use of anticoagulants; Z51.81 Encounter for therapeutic drug level monitoring | CPT/HCPCS: 85610; 99211 ==

== ENCOUNTER → 2023-02-12 07:52 | Outpatient (BNVA) | payer MEDICARE, SELFPAY | PROVIDERS: PCP Internal Medicine; Visit Provider Internal Medicine | DX: Z95.2 Presence of prosthetic heart valve (principal); Z79.01 Long term (current) use of anticoagulants; Z51.81 Encounter for therapeutic drug level monitoring | CPT/HCPCS: 85610; 99211 ==

== ENCOUNTER 2023-02-15 10:25 | Outpatient (REF) | payer MEDICARE, SELFPAY ==
--- NOTE | ~2023-02-15 | XR_ITS ---
EXAMINATION: XR CHEST CLINICAL INFORMATION: Intercostal pain COMPARISON: Chest CT 05/25/2022 TECHNIQUE: 2 views of the chest were obtained. FINDINGS: Cardiac silhouette is normal in size. Patient is status post valvular replacement. The lungs are well aerated. There is no lobar consolidation. No pleural effusion or pneumothorax. Moderate degenerative changes of the spine. XR/XR chest 2V IMPRESSION: No acute pulmonary pathology.
== END 2023-02-15 10:26 | disposition home or self-care (01) ==
LOC: HO.XRAY 10:25
PROVIDERS: PCP Internal Medicine; Visit Provider Internal Medicine
DX: R07.82 Intercostal pain (principal)
CPT/HCPCS: 71046

== ENCOUNTER 2023-02-15 10:31 | Outpatient (REF) | payer MEDICARE, SELFPAY ==
[2023-02-15 11:34] LABS: Alanine Aminotransferase 18 U/L (0-40); Albumin Level 3.8 g/dL (3.5-5.0); Alkaline Phosphatase 71 U/L (39-117); Aspartate Amino Transferase 21 U/L (5-37); Bilirubin Direct 0.3 mg/dL (0.0-0.5); Bilirubin Total 0.8 mg/dL (0.0-1.0); Cholesterol 144 mg/dL; HDL Cholesterol 50 mg/dL; LDL Cholesterol Calculated 78 mg/dl; Total Protein 6.5 g/dL (6.5-8.0); Triglycerides 82 mg/dL
[2023-02-15 11:50] LABS: TSH reflex Free T4 0.05 uIU/mL (0.32-4.0)
[2023-02-15 12:29] LABS: Free T4 (Free Thyroxine) 1.34 ng/dL (0.71-1.85)
[2023-02-15 12:37] LABS: Reflex LDLD? No
== END 2023-02-15 10:32 | disposition home or self-care (01) ==
LOC: HO.LNP 10:31
PROVIDERS: Visit Provider Internal Medicine
DX: E03.9 Hypothyroidism, unspecified (principal); E78.00 Pure hypercholesterolemia, unspecified
CPT/HCPCS: 80061; 80076; 84439; 84443

== ENCOUNTER → 2023-02-16 08:00 | Outpatient (BNVA) | payer MEDICARE, SELFPAY | PROVIDERS: PCP Internal Medicine; Visit Provider Internal Medicine | DX: Z95.2 Presence of prosthetic heart valve (principal); Z79.01 Long term (current) use of anticoagulants; Z51.81 Encounter for therapeutic drug level monitoring | CPT/HCPCS: 85610; 99212 ==

== ENCOUNTER → 2023-02-19 14:08 | Outpatient (BNVA) | payer MEDICARE, SELFPAY | PROVIDERS: PCP Internal Medicine; Visit Provider Internal Medicine | DX: Z95.2 Presence of prosthetic heart valve (principal); Z79.01 Long term (current) use of anticoagulants; Z51.81 Encounter for therapeutic drug level monitoring | CPT/HCPCS: 85610; 99211 ==

== ENCOUNTER 2023-03-05 07:59 | Outpatient (REF) | payer MEDICARE, SELFPAY ==
[2023-03-05 09:14] LABS: INTERNATIONAL NORM RATIO 6.9 (0.9-1.1)
== END 2023-03-05 08:00 | disposition home or self-care (01) ==
LOC: HO.LAB 07:59
PROVIDERS: PCP Internal Medicine; Visit Provider Internal Medicine
DX: Z95.2 Presence of prosthetic heart valve (principal); Z51.81 Encounter for therapeutic drug level monitoring; Z79.01 Long term (current) use of anticoagulants
CPT/HCPCS: 36415; 85610; 99211

== ENCOUNTER → 2023-03-09 07:59 | Outpatient (BNVA) | payer MEDICARE, SELFPAY | PROVIDERS: PCP Internal Medicine; Visit Provider Internal Medicine | DX: Z95.2 Presence of prosthetic heart valve (principal); Z79.01 Long term (current) use of anticoagulants; Z51.81 Encounter for therapeutic drug level monitoring | CPT/HCPCS: 85610; 99211 ==

== ENCOUNTER → 2023-03-15 08:18 | Outpatient (BNVA) | payer MEDICARE, SELFPAY | PROVIDERS: PCP Internal Medicine; Visit Provider Internal Medicine | DX: Z95.2 Presence of prosthetic heart valve (principal); Z79.01 Long term (current) use of anticoagulants; Z51.81 Encounter for therapeutic drug level monitoring | CPT/HCPCS: 85610; 99211 ==

== ENCOUNTER → 2023-03-29 13:30 | Outpatient (BNVA) | payer MEDICARE, SELFPAY | PROVIDERS: PCP Internal Medicine; Visit Provider Internal Medicine | DX: Z95.2 Presence of prosthetic heart valve (principal); Z79.01 Long term (current) use of anticoagulants; Z51.81 Encounter for therapeutic drug level monitoring | CPT/HCPCS: 85610; 99211 ==

== ENCOUNTER → 2023-04-19 08:28 | Outpatient (BNVA) | payer MEDICARE, SELFPAY | PROVIDERS: PCP Internal Medicine; Visit Provider Internal Medicine | DX: Z95.2 Presence of prosthetic heart valve (principal); Z79.01 Long term (current) use of anticoagulants; Z51.81 Encounter for therapeutic drug level monitoring | CPT/HCPCS: 85610; 99211 ==

== ENCOUNTER 2023-05-10 08:35 | Outpatient (AMB) | payer MEDICARE, SELFPAY ==
--- NOTE | 2023-05-10 08:40 | MHC.OFFVISCO ---
Intake Intake Visit Reasons: Anticoagulation Allergies diphenhydramine [From BENADRYL] Allergy (Intermediate, Verified 05/10/23 08:37) RESTLESS LEGS lisinopril [LISINOPRIL] Allergy (Intermediate, Verified 05/10/23 08:37) DIZZINESS Lisiopril/HCTZ Allergy (Unknown, Uncoded 05/10/23 08:37) dizziness Medication List - Last Reconciled 05/10/23 by Noemi Holder RN amlodipine 10 mg PO DAILY levothyroxine 175 mcg PO QAM losartan 25 mg PO DAILY metoprolol succinate ER 25 mg PO DAILY rosuvastatin 40 mg PO DAILY tamsulosin (Flomax) 0.4 mg PO DAILY warfarin 5 mg See Protocol PO DAILY Nursing Note INR: 2.2- in therapeutic range Medications and supplements reviewed- states no longer taking iron No changes in health, diet, medications, or supplements, Denies any signs and symptoms of bleeding or bruising or clotting. Bleeding, bruising, clotting discussed Nutritional guidance given Dose: 7.5mg x 1, 10mg x 6 F/U INR: 2 weeks Patient verbalizes understanding of instructions given Coding Level of Care Code Est Patient Level 1 Diagnoses Current use of anticoagulant therapy Z79.01 Results AMB INR Fingerstick AMB INR Fingerstick 2.2 Last Edit by Noemi Holder RN on 05/10/23 08:41 Assessment & Plan Assessment & Plan (1) Current use of anticoagulant therapy: Code(s): Z79.01 - intermediate card tender (current) 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
[2023-05-10 08:41] LABS: Prothrombin Time Whole Bld POC 26.8 sec (11.1-13.5); ~PT, ~INR - Anti Coag Clinic 2.2 (0.9-1.1)
== END 2023-05-10 08:45 | disposition home or self-care (01) ==
LOC: HO.ACS 08:35
PROVIDERS: PCP Internal Medicine; Visit Provider Internal Medicine
DX: Z79.01 Long term (current) use of anticoagulants (principal)

== ENCOUNTER → 2023-05-10 08:35 | Outpatient (BNVA) | payer MEDICARE, SELFPAY | PROVIDERS: PCP Internal Medicine; Visit Provider Internal Medicine | DX: Z95.2 Presence of prosthetic heart valve (principal); Z79.01 Long term (current) use of anticoagulants; Z51.81 Encounter for therapeutic drug level monitoring | CPT/HCPCS: 85610; 99211 ==

== ENCOUNTER 2023-05-14 11:30 | Outpatient (REF) | payer MEDICARE, SELFPAY ==
[2023-05-14 15:33] LABS: TSH reflex Free T4 0.02 uIU/mL (0.32-4.0)
[2023-05-14 16:52] LABS: Free T4 (Free Thyroxine) 1.06 ng/dL (0.71-1.85)
== END 2023-05-14 11:31 | disposition home or self-care (01) ==
LOC: HO.LNP 11:30
PROVIDERS: Visit Provider Internal Medicine
DX: E03.9 Hypothyroidism, unspecified (principal)
CPT/HCPCS: 84439; 84443

== ENCOUNTER 2023-05-24 08:17 | Outpatient (AMB) | payer MEDICARE, SELFPAY ==
--- NOTE | 2023-05-24 08:38 | MHC.OFFVISCO ---
Intake Intake Visit Reasons: Anticoagulation Allergies diphenhydramine [From BENADRYL] Allergy (Intermediate, Verified 05/24/23 08:33) RESTLESS LEGS lisinopril [LISINOPRIL] Allergy (Intermediate, Verified 05/24/23 08:33) DIZZINESS Lisiopril/HCTZ Allergy (Unknown, Uncoded 05/24/23 08:33) dizziness Medication List - Last Reconciled 05/24/23 by Noemi Holder RN amlodipine 10 mg PO DAILY levothyroxine 150 mcg PO DAILY losartan 25 mg PO DAILY metoprolol succinate ER 25 mg PO DAILY rosuvastatin 40 mg PO DAILY tamsulosin (Flomax) 0.4 mg PO DAILY warfarin 5 mg See Protocol PO DAILY Nursing Note INR 4.9? out of therapeutic range Medications and supplements reviewed Patient status: pt states 'had a drink' the other day pt states upcoming cataract surgery Medications or supplements: levothyroxine reduced to 150mcg approx one week ago Diet: same Denies any signs and symptoms of bleeding or clotting or unusual bruising Bleeding, bruising, clotting discussed - aware of risk of bleeding/bruising-avoid high risk activity Nutritional guidance given: eat greens to lower inr, no reds for 2 days Dose: hold today F/U INR Date : pt req wednesday05/31/23?? Patient verbalizing understanding of instructions given. Coding Level of Care Code Est Patient Level 1 Diagnoses Current use of anticoagulant therapy Z79.01 Assessment & Plan Assessment & Plan (1) Current use of anticoagulant therapy: Code(s): Z79.01 - intermediate manager (current) 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
[2023-05-24 08:40] LABS: Prothrombin Time Whole Bld POC 58.6 sec (11.1-13.5); ~PT, ~INR - Anti Coag Clinic 4.9 (0.9-1.1)
== END 2023-05-24 09:00 | disposition home or self-care (01) ==
LOC: HO.ACS 08:17
PROVIDERS: PCP Internal Medicine; Visit Provider Internal Medicine
DX: Z79.01 Long term (current) use of anticoagulants (principal)

== ENCOUNTER → 2023-05-24 08:17 | Outpatient (BNVA) | payer MEDICARE, SELFPAY | PROVIDERS: PCP Internal Medicine; Visit Provider Internal Medicine | DX: Z95.2 Presence of prosthetic heart valve (principal); Z79.01 Long term (current) use of anticoagulants; Z51.81 Encounter for therapeutic drug level monitoring | CPT/HCPCS: 85610; 99211 ==

== ENCOUNTER 2023-05-31 09:57 | Outpatient (AMB) | payer MEDICARE, SELFPAY ==
[2023-05-31 10:02] LABS: Prothrombin Time Whole Bld POC 26.2 sec (11.1-13.5); ~PT, ~INR - Anti Coag Clinic 2.2 (0.9-1.1)
--- NOTE | 2023-05-31 10:04 | MHC.OFFVISCO ---
Intake Intake Visit Reasons: Anticoagulation Allergies diphenhydramine [From BENADRYL] Allergy (Intermediate, Verified 05/31/23 09:57) RESTLESS LEGS lisinopril [LISINOPRIL] Allergy (Intermediate, Verified 05/31/23 09:57) DIZZINESS Lisiopril/HCTZ Allergy (Unknown, Uncoded 05/31/23 09:57) dizziness Medication List - Last Reconciled 05/31/23 by Nicole Mercado RN amlodipine 10 mg PO DAILY levothyroxine 150 mcg PO DAILY losartan 25 mg PO DAILY metoprolol succinate ER 25 mg PO DAILY metoprolol succinate ER 50 mg PO DAILY rosuvastatin 40 mg PO DAILY tamsulosin (Flomax) 0.4 mg PO DAILY warfarin 5 mg See Protocol PO DAILY Nursing Note INR: 2.2 in therapeutic range Medications and supplements reviewed TO HAVE CATARACT SURGERY 06/01/23, NO HOLD OF WARFARIN, PT INSTRUCTED TO CALL WITH DATE OF NEXT CATARACT TO HAVE INR 1-3 DAYS BEFORE OR PER MD TO WHEN SEEING PCP TODAY Denies any signs and symptoms of bleeding or bruising or clotting. Bleeding, bruising, clotting discussed Nutritional guidance given - EAT A MIX OF FRUITS AND VEGETABLES, KEEP UP WEEKLY GREENS Dose: 7.5MG SUN/ 10MG X 6 DAYS F/U INR: 2 WEEKS Patient verbalizes understanding of instructions given Coding Level of Care Code Est Patient Level 1 Diagnoses Current use of anticoagulant therapy Z79.01 Assessment & Plan Assessment & Plan (1) Current use of anticoagulant therapy: Code(s): Z79.01 - halfway (current) 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
== END 2023-05-31 10:10 | disposition home or self-care (01) ==
LOC: HO.ACS 09:57
PROVIDERS: PCP Internal Medicine; Visit Provider Internal Medicine
DX: Z79.01 Long term (current) use of anticoagulants (principal)

== ENCOUNTER → 2023-05-31 09:57 | Outpatient (BNVA) | payer MEDICARE, SELFPAY | PROVIDERS: PCP Internal Medicine; Visit Provider Internal Medicine | DX: Z95.2 Presence of prosthetic heart valve (principal); Z79.01 Long term (current) use of anticoagulants; Z51.81 Encounter for therapeutic drug level monitoring | CPT/HCPCS: 85610; 99211 ==

== ENCOUNTER 2023-06-08 10:01 | Outpatient (REF) | payer MEDICARE, SELFPAY ==
--- NOTE | ~2023-06-08 | CT_ITS ---
EXAMINATION: CT CHEST WITHOUT CONTRAST CLINICAL INFORMATION: Pulmonary nodule COMPARISON: Previous chest CT May 2022 and chest x-ray February 2023 TECHNIQUE: Multidetector volumetric CT imaging of the chest was done. Axial MIP volume rendering provided. Sagittal and coronal reformatted images were obtained. This CT examination was performed using dose optimization techniques as appropriate, variously including the following: *Automated exposure control *Adjustment of mA and/or kV according to patient size (this includes techniques or standardized protocols for targeted exams where dose is matched to indication/reason for exam; i.e. extremities or head) *Use of iterative reconstruction technique DLP: 228 mGy-cm FINDINGS: LUNGS: Clustered small 2 mm calcified and noncalcified nodules in the right lower lobe for example axial image 399 series 5 are stable. No other pulmonary nodule seen. No suspicious pulmonary nodule seen. Stable linear scarring or chronic subsegmental atelectasis in the left upper lobe. 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 Normal heart size. No pericardial effusion. Severe coronary artery calcification. Small mediastinal lymph nodes. No enlarged lymph nodes. CORONARY ARTERY CALCIFICATION: Severe PLEURA: There is no pleural effusion. No pleural mass or thickening. AXILLA: No lymphadenopathy. UPPER ABDOMEN: Bilateral renal cysts. No imaging follow-up recommended. OSSEOUS STRUCTURES: Median sternotomy. Degenerative changes of the spine. CT/CT chest wo IV con IMPRESSION: Stable small right lower lobe pulmonary nodules. According to Fleischner 2017 criteria, no chest CT follow-up recommended. Stable linear scarring or chronic subsegmental atelectasis in the left upper lobe. Postoperative changes from CABG and aortic valve replacement. Fleischner guidelines were followed.
== END 2023-06-08 10:02 | disposition home or self-care (01) ==
LOC: HO.CT 10:01
PROVIDERS: PCP Internal Medicine; Visit Provider Internal Medicine
DX: R91.8 Other nonspecific abnormal finding of lung field (principal)
CPT/HCPCS: 71250

== ENCOUNTER 2023-06-15 07:56 | Outpatient (AMB) | payer MEDICARE, SELFPAY ==
--- NOTE | 2023-06-15 08:20 | MHC.OFFVISCO ---
Intake Intake Visit Reasons: Anticoagulation Allergies diphenhydramine [From BENADRYL] Allergy (Intermediate, Verified 06/15/23 08:16) RESTLESS LEGS lisinopril [LISINOPRIL] Allergy (Intermediate, Verified 06/15/23 08:16) DIZZINESS Lisiopril/HCTZ Allergy (Unknown, Uncoded 06/15/23 08:16) dizziness Medication List - Last Reconciled 06/15/23 by Noemi Holedr RN amlodipine 10 mg PO DAILY levothyroxine 150 mcg PO DAILY losartan 25 mg PO DAILY metoprolol succinate ER 50 mg PO DAILY rosuvastatin 40 mg PO DAILY tamsulosin (Flomax) 0.4 mg PO DAILY warfarin 5 mg See Protocol PO DAILY Nursing Note INR 1.1-?? out of therapeutic range- pt states may have missed doses Medications and supplements reviewed Patient status: no c.o. pt states having cataract surg right eye 07/19/23, left on 08/02/23 Medications or supplements: no changes Diet: same, ate spinach yesterday Denies any signs and symptoms of bleeding or clotting or unusual bruising Bleeding, bruising, clotting discussed - aware at risk for clotting, s/s discussed Nutritional guidance given: no greens , eat reds to raise inr Dose: 12.5mg today and tomm then cont reg 10mg x 6, 7.5mg x 1 on wednesday F/U INR Date : refused earlier appt than wednesday06/21/23? due to md appts and work Patient verbalizing understanding of instructions given. pcp dr mustapha lewis's office called with low inr, dosing and f/u appt. spoke to refugio at 0945, aware of cataract surg and ? missed doses Coding Level of Care Code Est Patient Level 1 Diagnoses Current use of anticoagulant therapy Z79.01 Assessment & Plan Assessment & Plan (1) Current use of anticoagulant therapy: Code(s): Z79.01 - alf (current) 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
[2023-06-15 08:21] LABS: Prothrombin Time Whole Bld POC 12.9 sec (11.1-13.5); ~PT, ~INR - Anti Coag Clinic 1.1 (0.9-1.1)
== END 2023-06-15 08:53 | disposition home or self-care (01) ==
LOC: HO.ACS 07:56
PROVIDERS: PCP Internal Medicine; Visit Provider Internal Medicine
DX: Z79.01 Long term (current) use of anticoagulants (principal)

== ENCOUNTER → 2023-06-15 07:56 | Outpatient (BNVA) | payer MEDICARE, SELFPAY | PROVIDERS: PCP Internal Medicine; Visit Provider Internal Medicine | DX: Z95.2 Presence of prosthetic heart valve (principal); Z79.01 Long term (current) use of anticoagulants; Z51.81 Encounter for therapeutic drug level monitoring | CPT/HCPCS: 85610; 99211 ==

== ENCOUNTER 2023-06-21 08:20 | Outpatient (AMB) | payer MEDICARE, SELFPAY ==
--- NOTE | 2023-06-21 08:24 | MHC.OFFVISCO ---
Intake Intake Visit Reasons: Anticoagulation Allergies diphenhydramine [From BENADRYL] Allergy (Intermediate, Verified 06/21/23 08:21) RESTLESS LEGS lisinopril [LISINOPRIL] Allergy (Intermediate, Verified 06/21/23 08:21) DIZZINESS Lisiopril/HCTZ Allergy (Unknown, Uncoded 06/21/23 08:21) dizziness Medication List - Last Reconciled 06/21/23 by Noemi Holder RN amlodipine 10 mg PO DAILY levothyroxine 150 mcg PO DAILY losartan 25 mg PO DAILY metoprolol succinate ER 50 mg PO DAILY rosuvastatin 40 mg PO DAILY tamsulosin (Flomax) 0.4 mg PO DAILY warfarin 5 mg See Protocol PO DAILY Nursing Note INR 1.4-out of therapeutic range Medications and supplements reviewed Patient status: upcoming cataract surgery 07/19/23 and 08/02/23 Medications or supplements: no changes Diet: same Denies any signs and symptoms of bleeding or clotting or unusual bruising Bleeding, bruising, clotting discussed Nutritional guidance given: no greens for 2 days, eat reds to raise Dose: F/U INR Date : pt ref earlier than 1 week?? Patient verbalizing understanding of instructions given. 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
[2023-06-21 08:25] LABS: Prothrombin Time Whole Bld POC 16.9 sec (11.1-13.5); ~PT, ~INR - Anti Coag Clinic 1.4 (0.9-1.1)
== END 2023-06-21 08:30 | disposition home or self-care (01) ==
LOC: HO.ACS 08:20
PROVIDERS: PCP Internal Medicine; Visit Provider Internal Medicine
DX: Z79.01 Long term (current) use of anticoagulants (principal)

== ENCOUNTER → 2023-06-21 08:20 | Outpatient (BNVA) | payer MEDICARE, SELFPAY | PROVIDERS: PCP Internal Medicine; Visit Provider Internal Medicine | DX: Z95.2 Presence of prosthetic heart valve (principal); Z79.01 Long term (current) use of anticoagulants; Z51.81 Encounter for therapeutic drug level monitoring | CPT/HCPCS: 85610; 99211 ==

== ENCOUNTER → 2023-06-28 09:44 | Outpatient (BNVA) | payer MEDICARE, SELFPAY | PROVIDERS: PCP Internal Medicine; Visit Provider Internal Medicine | DX: Z95.2 Presence of prosthetic heart valve (principal); Z79.01 Long term (current) use of anticoagulants; Z51.81 Encounter for therapeutic drug level monitoring | CPT/HCPCS: 85610; 99211 ==

== ENCOUNTER 2023-07-05 08:25 | Outpatient (AMB) | payer MEDICARE, SELFPAY ==
--- NOTE | 2023-07-05 08:46 | MHC.OFFVISCO ---
Intake Intake Visit Reasons: Anticoagulation Allergies diphenhydramine [From BENADRYL] Allergy (Intermediate, Verified 07/05/23 08:36) RESTLESS LEGS lisinopril [LISINOPRIL] Allergy (Intermediate, Verified 07/05/23 08:36) DIZZINESS Lisiopril/HCTZ Allergy (Unknown, Uncoded 07/05/23 08:36) dizziness Medication List - Last Reconciled 07/05/23 by Nicole Mercado RN amlodipine 10 mg PO DAILY levothyroxine 150 mcg PO DAILY losartan 25 mg PO DAILY metoprolol succinate ER 50 mg PO DAILY rosuvastatin 40 mg PO DAILY tamsulosin (Flomax) 0.4 mg PO DAILY warfarin 5 mg See Protocol PO DAILY Nursing Note PT VISIT DELAYED DUE TO METER INTERFACING ISSUES 7 MINUTES INR: in therapeutic range Medications and supplements reviewed No changes in health, diet, medications, or supplements, Denies any signs and symptoms of bleeding or bruising or clotting. Bleeding, bruising, clotting discussed Nutritional guidance given - REVIEW FOOD LIST KEEP Dose: KEEP SAME 7.5MG X 1 DAY/ 10MG X 6 DAYS F/U INR: 07/15/23Wednesday BEFORE CATARACT ON 07/19/23Wednesday Patient verbalizes understanding of instructions given Coding Level of Care Code Est Patient Level 1 Diagnoses Current use of anticoagulant therapy Z79.01 Assessment & Plan Assessment & Plan (1) Current use of anticoagulant therapy: Code(s): Z79.01 - terminologist (current) 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
[2023-07-05 08:48] LABS: Prothrombin Time Whole Bld POC 38.5 sec (11.1-13.5); ~PT, ~INR - Anti Coag Clinic 3.2 (0.9-1.1)
== END 2023-07-05 08:53 | disposition home or self-care (01) ==
LOC: HO.ACS 08:25
PROVIDERS: PCP Internal Medicine; Visit Provider Internal Medicine
DX: Z79.01 Long term (current) use of anticoagulants (principal)

== ENCOUNTER → 2023-07-05 08:25 | Outpatient (BNVA) | payer MEDICARE, SELFPAY | PROVIDERS: PCP Internal Medicine; Visit Provider Internal Medicine | DX: Z95.2 Presence of prosthetic heart valve (principal); Z79.01 Long term (current) use of anticoagulants; Z51.81 Encounter for therapeutic drug level monitoring | CPT/HCPCS: 85610; 99211 ==

== ENCOUNTER → 2023-07-21 08:10 | Outpatient (BNVA) | payer MEDICARE, SELFPAY | PROVIDERS: PCP Internal Medicine; Visit Provider Internal Medicine | DX: Z95.2 Presence of prosthetic heart valve (principal); Z79.01 Long term (current) use of anticoagulants; Z51.81 Encounter for therapeutic drug level monitoring | CPT/HCPCS: 85610; 99211 ==

== ENCOUNTER 2023-08-04 08:16 | Outpatient (AMB) | payer MEDICARE, SELFPAY ==
--- NOTE | 2023-08-04 08:34 | MHC.OFFVISCO ---
Intake Intake Visit Reasons: Anticoagulation Allergies diphenhydramine [From BENADRYL] Allergy (Intermediate, Verified 08/04/23 08:30) RESTLESS LEGS lisinopril [LISINOPRIL] Allergy (Intermediate, Verified 08/04/23 08:30) DIZZINESS Lisiopril/HCTZ Allergy (Unknown, Uncoded 08/04/23 08:30) dizziness Medication List - Last Reconciled 08/04/23 by Noemi Holder RN amlodipine 10 mg PO DAILY levothyroxine 150 mcg PO DAILY losartan 25 mg PO DAILY metoprolol succinate ER 50 mg PO DAILY rosuvastatin 40 mg PO DAILY tamsulosin (Flomax) 0.4 mg PO DAILY warfarin 5 mg See Protocol PO DAILY Nursing Note INR 1.6- out of therapeutic range of 2-3 Medications and supplements reviewed Patient status: s/p cataract surgery on 08/02/23- pt held warfarin on 08/01/23 Medications or supplements: eye drops post op Diet: same Denies any signs and symptoms of bleeding or clotting or unusual bruising Bleeding, bruising, clotting discussed - some ecchymosis under left eye post surgery Nutritional guidance given: no greens for 2-3 days, will eat reds to raise Dose: 12.5mg today then cont reg 7.5mg x 1, 10mg x 6 F/U INR Date : 1 week?? Patient verbalizing understanding of instructions given. 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
[2023-08-04 08:45] LABS: Prothrombin Time Whole Bld POC 19.8 sec (11.1-13.5); ~PT, ~INR - Anti Coag Clinic 1.6 (0.9-1.1)
== END 2023-08-04 08:42 | disposition home or self-care (01) ==
LOC: HO.ACS 08:16
PROVIDERS: PCP Internal Medicine; Visit Provider Internal Medicine
DX: Z79.01 Long term (current) use of anticoagulants (principal)

== ENCOUNTER → 2023-08-04 08:16 | Outpatient (BNVA) | payer MEDICARE, SELFPAY | PROVIDERS: PCP Internal Medicine; Visit Provider Internal Medicine | DX: Z95.2 Presence of prosthetic heart valve (principal); Z79.01 Long term (current) use of anticoagulants; Z51.81 Encounter for therapeutic drug level monitoring | CPT/HCPCS: 85610; 99211 ==

== ENCOUNTER 2023-08-10 08:36 | Outpatient (AMB) | payer MEDICARE, SELFPAY ==
[2023-08-10 08:45] LABS: Prothrombin Time Whole Bld POC 35.6 sec (11.1-13.5)
--- NOTE | 2023-08-10 08:47 | MHC.OFFVISCO ---
Intake Intake Visit Reasons: Anticoagulation Allergies diphenhydramine [From BENADRYL] Allergy (Intermediate, Verified 08/10/23 08:40) RESTLESS LEGS lisinopril [LISINOPRIL] Allergy (Intermediate, Verified 08/10/23 08:40) DIZZINESS Lisiopril/HCTZ Allergy (Unknown, Uncoded 08/10/23 08:40) dizziness Medication List - Last Reconciled 08/10/23 by Nicole Mercado RN amlodipine 10 mg PO DAILY ketorolac 0.5% drelvia ophthalmic (eye) levothyroxine 150 mcg PO DAILY losartan 25 mg PO DAILY metoprolol succinate ER 50 mg PO DAILY rosuvastatin 40 mg PO DAILY tamsulosin (Flomax) 0.4 mg PO DAILY warfarin 5 mg See Protocol PO DAILY Nursing Note INR: 3.0 in therapeutic range Medications and supplements reviewed PT HAD BILAT EYE CATARACTS 06/2023 AND 07/2023 Denies any signs and symptoms of bleeding or bruising or clotting. Bleeding, bruising, clotting discussed Nutritional guidance given - KEEP[ UP WEEKLY GREENS Dose: KEEP SAME 7.5MG X 1 DAY/ 10MG X 6 DAYS F/U INR: 2 WEEKS 07/23/23 Patient verbalizes understanding of instructions given Coding Level of Care Code Est Patient Level 1 Diagnoses Current use of anticoagulant therapy Z79.01 Assessment & Plan Assessment & Plan (1) Current use of anticoagulant therapy: Code(s): Z79.01 - terminal superintendent (current) 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
== END 2023-08-10 08:51 | disposition home or self-care (01) ==
LOC: HO.ACS 08:36
PROVIDERS: PCP Internal Medicine; Visit Provider Internal Medicine
DX: Z79.01 Long term (current) use of anticoagulants (principal)

== ENCOUNTER → 2023-08-10 08:36 | Outpatient (BNVA) | payer MEDICARE, SELFPAY | PROVIDERS: PCP Internal Medicine; Visit Provider Internal Medicine | DX: Z95.2 Presence of prosthetic heart valve (principal); Z79.01 Long term (current) use of anticoagulants; Z51.81 Encounter for therapeutic drug level monitoring | CPT/HCPCS: 85610; 99211 ==

== ENCOUNTER 2023-08-12 10:42 | Outpatient (REF) | payer MEDICARE, SELFPAY ==
[2023-08-12 10:49] LABS: MANUAL DIFF FLAG NO
[2023-08-12 11:29] LABS: Basophils Percent Auto 0.2 % (0-2); Eosinophils Absolute Auto 0.2 X10*3/uL (0.0-0.4); Eosinophils Percent Auto 2.4 % (0-4); Hematocrit 40.5 % (42.0-52.0); Hemoglobin 13.2 g/dl (14.0-18.0); Imm Gran Abs Auto 0.01 X10*3/uL (0.00-0.03); Imm Gran Pct Auto 0.2 % (0.0-0.4); Lymphocytes Absolute Auto 1.6 X10*3/uL (1.2-4.9); Lymphocytes Percent Auto 24.7 % (20-40); Mean Corpuscular HGB Conc 32.6 g/dl (31.0-36.0); Mean Corpuscular Hemoglobin 30.5 pg (27.0-33.0); Mean Corpuscular Volume 93.5 fL (80.0-98.0); Mean Platelet Volume 10.4 fL (9.4-12.4); Monocytes Absolute Auto 0.7 X10*3/uL (0.1-1.2); Monocytes Percent Auto 11.5 % (2-11); Neutrophils Absolute Auto 3.8 x10*3/uL (2.0-8.3); Platelet Count 247 X10*3/uL (160-400); Red Blood Count 4.33 X10*6/uL (4.60-5.80); White Blood Count 6.3 X10*3/uL (4.8-10.8)
[2023-08-12 11:32] LABS: Appearance Urine Clear; Color Urine Yellow; Glucose Urine UA Negative (Negative); Leukocyte Esterase Urine Negative (Negative); Nitrite Urine Negative (Negative); Specific Gravity - Urine 1.015 (1.005-1.025); UMIC TRIGGER UACC YES; Urine Blood Moderate (2+) (Negative); Urine Ketones Negative (Negative); Urine Protein 100 (2+) mg/dL (Neg-Trace)
[2023-08-12 11:39] LABS: Bacteria Urine None Seen (None Seen); Hyaline Casts Urine 0-2 /LPF (0-2); RBC Urine >20 /HPF (0-2); Squamous Epithelial Cell Urine 0-2 /HPF (0-2); WBC Urine 0-5 /HPF (0-5)
[2023-08-12 11:48] LABS: Alanine Aminotransferase 19 U/L (0-40); Albumin Level 4.1 g/dL (3.5-5.0); Alkaline Phosphatase 73 U/L (39-117); Anion Gap 11 (12-20); Aspartate Amino Transferase 25 U/L (5-37); Bilirubin Total 1.1 mg/dL (0.0-1.0); Blood Urea Nitrogen 25 mg/dL (9-16); Calcium 10.2 mg/dL (8.4-10.2); Carbon Dioxide 27 mmol/L (22-29); Chloride 107 mmol/L (96-108); Cholesterol 161 mg/dL (<200); Estimated Glomerular Filt Rate > 60; Glucose Fasting 102 mg/dL (60-99); HDL Cholesterol 72 mg/dL (>40); LDL Cholesterol Calculated 72 mg/dL (<100); Potassium 4.7 mmol/L (3.3-5.1); Sodium 140 mmol/L (135-145); Total Protein 7.5 g/dL (6.5-8.0); Triglycerides 86 mg/dL (<150)
[2023-08-12 12:07] LABS: PSA,Total (Free>4and<10) 3.94 ng/mL (0.00-4.00)
== END 2023-08-12 10:43 | disposition home or self-care (01) ==
LOC: HO.LNP 10:42
PROVIDERS: Visit Provider Internal Medicine
DX: Z00.00 Encounter for general adult medical examination without abnormal findings (principal); Z12.5 Encounter for screening for malignant neoplasm of prostate; I10 Essential (primary) hypertension; E78.00 Pure hypercholesterolemia, unspecified; N18.1 Chronic kidney disease, stage 1; N40.0 Benign prostatic hyperplasia without lower urinary tract symptoms
CPT/HCPCS: 80053; 80061; 81001; 84153; 85025

== ENCOUNTER 2023-08-23 07:59 | Outpatient (AMB) | payer MEDICARE, SELFPAY ==
--- NOTE | 2023-08-23 08:09 | MHC.OFFVISCO ---
Intake Intake Visit Reasons: Anticoagulation Allergies diphenhydramine [From BENADRYL] Allergy (Intermediate, Verified 08/23/23 08:05) RESTLESS LEGS lisinopril [LISINOPRIL] Allergy (Intermediate, Verified 08/23/23 08:05) DIZZINESS Lisiopril/HCTZ Allergy (Unknown, Uncoded 08/23/23 08:05) dizziness Medication List - Last Reconciled 08/23/23 by Noemi Holder RN amlodipine 10 mg PO DAILY ketorolac 0.5% drps ophthalmic (eye) levothyroxine 150 mcg PO DAILY losartan 25 mg PO DAILY metoprolol succinate ER 50 mg PO DAILY rosuvastatin 40 mg PO DAILY tamsulosin (Flomax) 0.4 mg PO DAILY warfarin 5 mg See Protocol PO DAILY Nursing Note INR: 2.1- in therapeutic range of 2-3 Medications and supplements reviewed- no changes No changes in health, diet, medications, or supplements, Denies any signs and symptoms of bleeding or bruising or clotting. Bleeding, bruising, clotting discussed Nutritional guidance given Dose: 7.5mg x 1, 10mg x 6 F/U INR: pt req 3 weeks Patient verbalizes understanding of instructions given Coding Level of Care Code Est Patient Level 1 Diagnoses Current use of anticoagulant therapy Z79.01 Results AMB INR Fingerstick AMB INR Fingerstick 2.1 Last Edit by Noemi Holder RN on 08/23/23 08:10 Assessment & Plan Assessment & Plan (1) Current use of anticoagulant therapy: Code(s): Z79.01 - intermission coordinator (current) 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
[2023-08-23 08:10] LABS: Prothrombin Time Whole Bld POC 25.4 sec (11.1-13.5); ~PT, ~INR - Anti Coag Clinic 2.1 (0.9-1.1)
== END 2023-08-23 08:13 | disposition home or self-care (01) ==
LOC: HO.ACS 07:59
PROVIDERS: PCP Internal Medicine; Visit Provider Internal Medicine
DX: Z79.01 Long term (current) use of anticoagulants (principal)

== ENCOUNTER → 2023-08-23 07:59 | Outpatient (BNVA) | payer MEDICARE, SELFPAY | PROVIDERS: PCP Internal Medicine; Visit Provider Internal Medicine | DX: Z95.2 Presence of prosthetic heart valve (principal); Z79.01 Long term (current) use of anticoagulants; Z51.81 Encounter for therapeutic drug level monitoring | CPT/HCPCS: 85610; 99211 ==

== ENCOUNTER 2023-09-13 08:03 | Outpatient (AMB) | payer MEDICARE, SELFPAY ==
--- NOTE | 2023-09-13 08:09 | MHC.OFFVISCO ---
Intake Intake Visit Reasons: Anticoagulation Allergies diphenhydramine [From BENADRYL] Allergy (Intermediate, Verified 09/13/23 08:05) RESTLESS LEGS lisinopril [LISINOPRIL] Allergy (Intermediate, Verified 09/13/23 08:05) DIZZINESS Lisiopril/HCTZ Allergy (Unknown, Uncoded 09/13/23 08:05) dizziness Medication List - Last Reconciled 09/13/23 by Noemi Holder RN amlodipine 10 mg PO DAILY levothyroxine 150 mcg PO DAILY losartan 25 mg PO DAILY metoprolol succinate ER 50 mg PO DAILY rosuvastatin 40 mg PO DAILY tamsulosin (Flomax) 0.4 mg PO DAILY warfarin 5 mg See Protocol PO DAILY Nursing Note INR 3.5-? out of therapeutic range of 2-3 Medications and supplements reviewed Patient status: no c.o, pt states had dark chocolate Medications or supplements: no changes Diet: same Denies any signs and symptoms of bleeding or clotting or unusual bruising Bleeding, bruising, clotting discussed Nutritional guidance given: eat greens to lower Dose: 7.5mg today then cont reg 10mg x 6, 7.5mg x 1 F/U INR Date : 2 weeks?? Patient verbalizing understanding of instructions given. Coding Level of Care Code Est Patient Level 1 Diagnoses Current use of anticoagulant therapy Z79.01 Results AMB INR Fingerstick AMB INR Fingerstick 3.5 Last Edit by Noemi Holder RN on 09/13/23 08:11 Assessment & Plan Assessment & Plan (1) Current use of anticoagulant therapy: Code(s): Z79.01 - manager long term care (current) 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
[2023-09-13 08:10] LABS: Prothrombin Time Whole Bld POC 41.7 sec (11.1-13.5); ~PT, ~INR - Anti Coag Clinic 3.5 (0.9-1.1)
== END 2023-09-13 08:15 | disposition home or self-care (01) ==
LOC: HO.ACS 08:03
PROVIDERS: PCP Internal Medicine; Visit Provider Internal Medicine
DX: Z79.01 Long term (current) use of anticoagulants (principal)

== ENCOUNTER → 2023-09-13 08:03 | Outpatient (BNVA) | payer MEDICARE, SELFPAY | PROVIDERS: PCP Internal Medicine; Visit Provider Internal Medicine | DX: Z95.2 Presence of prosthetic heart valve (principal); Z79.01 Long term (current) use of anticoagulants; Z51.81 Encounter for therapeutic drug level monitoring | CPT/HCPCS: 85610; 99211 ==

== ENCOUNTER 2023-09-27 08:44 | Outpatient (AMB) | payer MEDICARE, SELFPAY ==
[2023-09-27 08:51] LABS: Prothrombin Time Whole Bld POC 20.2 sec (11.1-13.5); ~PT, ~INR - Anti Coag Clinic 1.7 (0.9-1.1)
--- NOTE | 2023-09-27 08:56 | MHC.OFFVISCO ---
Intake Intake Visit Reasons: Anticoagulation Allergies diphenhydramine [From BENADRYL] Allergy (Intermediate, Verified 09/27/23 08:45) RESTLESS LEGS lisinopril [LISINOPRIL] Allergy (Intermediate, Verified 09/27/23 08:45) DIZZINESS Lisiopril/HCTZ Allergy (Unknown, Uncoded 09/27/23 08:45) dizziness Medication List - Last Reconciled 09/27/23 by Nicole Mercado RN amlodipine 10 mg PO DAILY levothyroxine 150 mcg PO DAILY losartan 25 mg PO DAILY metoprolol succinate ER 50 mg PO DAILY rosuvastatin 40 mg PO DAILY tamsulosin (Flomax) 0.4 mg PO DAILY warfarin 5 mg See Protocol PO DAILY Nursing Note INR: 1.7 OUT OF therapeutic range Medications and supplements reviewed States he ate a lot of chocolate recently Denies any signs and symptoms of bleeding or bruising or clotting. Bleeding, bruising, clotting discussed Nutritional guidance given - avoid greens x 2 days, eat orange and reds to help raise the INR Dose: keep same dose for now 7.5mg sun/ 10mg x 6 days- pt states he will have foods to help raise it today- he stated he would rather leave the dose alone and try diet instead F/U INR: 2 weeks Patient verbalizes understanding of instructions given Coding Level of Care Code Est Patient Level 1 Diagnoses Current use of anticoagulant therapy Z79.01 Results AMB INR Fingerstick AMB INR Fingerstick 1.7 Last Edit by Nicloe Mercado RN on 09/27/23 08:52 MANUAL ENTRY Assessment & Plan Assessment & Plan (1) Current use of anticoagulant therapy: Code(s): Z79.01 - longterm (current) 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
== END 2023-09-27 08:58 | disposition home or self-care (01) ==
LOC: HO.ACS 08:44
PROVIDERS: PCP Internal Medicine; Visit Provider Internal Medicine
DX: Z79.01 Long term (current) use of anticoagulants (principal)

== ENCOUNTER → 2023-09-27 08:44 | Outpatient (BNVA) | payer MEDICARE, SELFPAY | PROVIDERS: PCP Internal Medicine; Visit Provider Internal Medicine | DX: Z95.2 Presence of prosthetic heart valve (principal); Z79.01 Long term (current) use of anticoagulants; Z51.81 Encounter for therapeutic drug level monitoring | CPT/HCPCS: 85610; 99211 ==

== ENCOUNTER 2023-10-12 08:01 | Outpatient (AMB) | payer MEDICARE, SELFPAY ==
[2023-10-12 08:13] LABS: ~PT, ~INR - Anti Coag Clinic 3.8 (0.9-1.1)
--- NOTE | 2023-10-12 08:18 | MHC.OFFVISCO ---
Intake Intake Visit Reasons: Anticoagulation Allergies diphenhydramine [From BENADRYL] Allergy (Intermediate, Verified 10/12/23 08:08) RESTLESS LEGS lisinopril [LISINOPRIL] Allergy (Intermediate, Verified 10/12/23 08:08) DIZZINESS Lisiopril/HCTZ Allergy (Unknown, Uncoded 10/12/23 08:08) dizziness Medication List - Last Reconciled 10/12/23 by Nicole Mercado RN amlodipine 10 mg PO DAILY levothyroxine 150 mcg PO DAILY losartan 25 mg PO DAILY metoprolol succinate ER 50 mg PO DAILY rosuvastatin 40 mg PO DAILY tamsulosin (Flomax) 0.4 mg PO DAILY warfarin 5 mg See Protocol PO DAILY Nursing Note INR: 3.8 OUT OF therapeutic range Medications and supplements reviewed No changes in health, diet, medications, or supplements, Denies any signs and symptoms of bleeding or bruising or clotting. Bleeding, bruising, clotting discussed Nutritional guidance given - SPINACH TODAY AND WEEKLY,PT EATS CANNED SPINACH IT IS EASIER TO MANAGE IN HIS LIVING SITUATION Dose: 7.5MG SUNDAYS/ 10MG X 6 DAYS/ WEEK- PREVIOUS INR WAS 1.7 AFTER A DECREASED DOSE WHEN HE WAS 3.5 - LEAVE DOSE THE SAME DUE TO VALVE AND RECHECK 2 WEEKS F/U INR: 2 WEEKS Patient verbalizes understanding of instructions given Questionnaires HAS-BLED Does the patient had uncontrolled Hypertension?: No Does the patient have renal disease?: No Does the patient have liver disease?: No Does the patient have a history of stroke?: No Has the patient had major bleeding or predisposition to bleeding?: No (ETOH USE ) Does the patient have labile INRs?: Yes Is the patient over 65 years of age?: Yes Is the patient on medications that gives them a predisposition to bleeding?: Yes Does the patient use alcohol?: Yes HAS-BLED Score: 4 CHADSVASC Age: 66-74 Gender: Male Does the patient have a history of CHF?: No Does the patient have a history of Hypertension?: Yes Does the patient have a history of Stroke/TIA/Thromboembolism?: No Does the patient have a history of Vascular Disease (prior CA, PAD or aortic plaque)?: Yes Does the patient have a history of Diabetes?: No CHADS VACS Score: 3 Jessica Prediction Score Rsk VTE Active Cancer: No Previous VTE, excluding superficial vein thrombosis: No Reduced mobility: No Already known Thrombophilic Condition: Yes With-in last month Trauma and/or Surgery: No Elderly 70 year or older: Yes Heart and/or Respiratory Failure: No Acute Myocardial infarction and/or Ischemic Stroke: No Acute Infection and/or Rheumatologic Disorder: No Obesity (BMI 30 or greater): No Ongoing Hormonal Treatment: No Score: 4 Jessica Score less than 4; Low Risk of VTE Jessica Score 4 or greater; High Risk of VTE Coding Level of Care Code Est Patient Level 1 Diagnoses Current use of anticoagulant therapy Z79.01 Assessment & Plan Assessment & Plan (1) Current use of anticoagulant therapy: Code(s): Z79.01 - 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
== END 2023-10-12 08:25 | disposition home or self-care (01) ==
LOC: HO.ACS 08:01
PROVIDERS: PCP Internal Medicine; Visit Provider Internal Medicine
DX: Z79.01 Long term (current) use of anticoagulants (principal)

== ENCOUNTER → 2023-10-12 08:01 | Outpatient (BNVA) | payer MEDICARE, SELFPAY | PROVIDERS: PCP Internal Medicine; Visit Provider Internal Medicine | DX: Z95.2 Presence of prosthetic heart valve (principal); Z79.01 Long term (current) use of anticoagulants; Z51.81 Encounter for therapeutic drug level monitoring | CPT/HCPCS: 85610; 99211 ==

== ENCOUNTER 2023-11-01 08:33 | Outpatient (AMB) | payer MEDICARE, SELFPAY ==
--- NOTE | 2023-11-01 08:38 | MHC.OFFVISCO ---
Intake Intake Visit Reasons: Anticoagulation Allergies diphenhydramine [From BENADRYL] Allergy (Intermediate, Verified 11/01/23 08:34) RESTLESS LEGS lisinopril [LISINOPRIL] Allergy (Intermediate, Verified 11/01/23 08:34) DIZZINESS Lisiopril/HCTZ Allergy (Unknown, Uncoded 11/01/23 08:34) dizziness Medication List - Last Reconciled 11/01/23 by Noemi Holder RN amlodipine 10 mg PO DAILY levothyroxine 150 mcg PO DAILY losartan 25 mg PO DAILY metoprolol succinate ER 50 mg PO DAILY rosuvastatin 40 mg PO DAILY tamsulosin (Flomax) 0.4 mg PO DAILY warfarin 5 mg See Protocol PO DAILY Nursing Note INR: 2.0- in therapeutic range of 2-3 Medications and supplements reviewed- no changes No changes in health, diet, medications, or supplements, Denies any signs and symptoms of bleeding or bruising or clotting. Bleeding, bruising, clotting discussed Nutritional guidance given no greens for 2 days- eat a red today Dose: 10mg x 6, 7.5mg x 1 F/U INR: 2 weeks Patient verbalizes understanding of instructions given Coding Level of Care Code Est Patient Level 1 Diagnoses Current use of anticoagulant therapy Z79.01 Results AMB INR Fingerstick AMB INR Fingerstick 2.0 Last Edit by Noemi Holder RN on 11/01/23 08:39 Assessment & Plan Assessment & Plan (1) Current use of anticoagulant therapy: Code(s): Z79.01 - alf (current) 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
[2023-11-01 08:39] LABS: Prothrombin Time Whole Bld POC 24.3 sec (11.1-13.5)
== END 2023-11-01 09:02 | disposition home or self-care (01) ==
LOC: HO.ACS 08:33
PROVIDERS: PCP Internal Medicine; Visit Provider Internal Medicine
DX: Z79.01 Long term (current) use of anticoagulants (principal)

== ENCOUNTER → 2023-11-01 08:33 | Outpatient (BNVA) | payer MEDICARE, SELFPAY | PROVIDERS: PCP Internal Medicine; Visit Provider Internal Medicine | DX: Z95.2 Presence of prosthetic heart valve (principal); Z79.01 Long term (current) use of anticoagulants; Z51.81 Encounter for therapeutic drug level monitoring | CPT/HCPCS: 85610; 99211 ==

== ENCOUNTER 2023-11-15 08:00 | Outpatient (AMB) | payer MEDICARE, SELFPAY ==
[2023-11-15 08:21] LABS: Prothrombin Time Whole Bld POC 33.8 sec (11.1-13.5); ~PT, ~INR - Anti Coag Clinic 2.8 (0.9-1.1)
--- NOTE | 2023-11-15 08:25 | MHC.OFFVISCO ---
Intake Intake Visit Reasons: Anticoagulation Allergies diphenhydramine [From BENADRYL] Allergy (Intermediate, Verified 11/15/23 08:15) RESTLESS LEGS lisinopril [LISINOPRIL] Allergy (Intermediate, Verified 11/15/23 08:15) DIZZINESS Lisiopril/HCTZ Allergy (Unknown, Uncoded 11/15/23 08:15) dizziness Medication List - Last Reconciled 11/15/23 by Nicole Mercado RN amlodipine 10 mg PO DAILY levothyroxine 150 mcg PO DAILY losartan 25 mg PO DAILY metoprolol succinate ER 50 mg PO DAILY rosuvastatin 40 mg PO DAILY tamsulosin (Flomax) 0.4 mg PO DAILY warfarin 5 mg See Protocol PO DAILY Nursing Note INR: 2.8 in therapeutic range Medications and supplements reviewed No changes in health, diet, medications, or supplements, Denies any signs and symptoms of bleeding or bruising or clotting. 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
== END 2023-11-15 08:26 | disposition home or self-care (01) ==
LOC: HO.ACS 08:00
PROVIDERS: PCP Internal Medicine; Visit Provider Internal Medicine
DX: Z79.01 Long term (current) use of anticoagulants (principal)

== ENCOUNTER → 2023-11-15 08:00 | Outpatient (BNVA) | payer MEDICARE, SELFPAY | PROVIDERS: PCP Internal Medicine; Visit Provider Internal Medicine | DX: Z95.2 Presence of prosthetic heart valve (principal); Z51.81 Encounter for therapeutic drug level monitoring; Z79.01 Long term (current) use of anticoagulants | CPT/HCPCS: 85610; 99211 ==

== ENCOUNTER 2023-12-02 08:05 | Outpatient (AMB) | payer MEDICARE, SELFPAY ==
[2023-12-02 08:17] LABS: Prothrombin Time Whole Bld POC 24.9 sec (11.1-13.5); ~PT, ~INR - Anti Coag Clinic 2.1 (0.9-1.1)
--- NOTE | 2023-12-02 08:21 | MHC.OFFVISCO ---
Intake Intake Visit Reasons: Anticoagulation Allergies diphenhydramine [From BENADRYL] Allergy (Intermediate, Verified 12/02/23 08:11) RESTLESS LEGS lisinopril [LISINOPRIL] Allergy (Intermediate, Verified 12/02/23 08:11) DIZZINESS Lisiopril/HCTZ Allergy (Unknown, Uncoded 12/02/23 08:11) dizziness Medication List - Last Reconciled 12/02/23 by Nicole Mercado RN amlodipine 10 mg PO DAILY levothyroxine 150 mcg PO DAILY losartan 25 mg PO DAILY metoprolol succinate ER 50 mg PO DAILY rosuvastatin 40 mg PO DAILY tamsulosin (Flomax) 0.4 mg PO DAILY warfarin 5 mg See Protocol PO DAILY Nursing Note INR: 2.1 in therapeutic range Medications and supplements reviewed No changes in health, diet, medications, or supplements, Denies any signs and symptoms of bleeding or bruising or clotting. Bleeding, bruising, clotting discussed Nutritional guidance given Dose: 7.5MG X 1 DAY/10MG X 6 DAYS F/U INR: 2 WEEKS 12/20/23 Patient verbalizes understanding of instructions given Coding Level of Care Code Est Patient Level 1 Diagnoses Current use of anticoagulant therapy Z79.01 Assessment & Plan Assessment & Plan (1) Current use of anticoagulant therapy: Code(s): Z79.01 - long term acute care registered nurse (current) 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
== END 2023-12-02 08:22 | disposition home or self-care (01) ==
LOC: HO.ACS 08:05
PROVIDERS: PCP Internal Medicine; Visit Provider Internal Medicine
DX: Z79.01 Long term (current) use of anticoagulants (principal)

== ENCOUNTER → 2023-12-02 08:05 | Outpatient (BNVA) | payer MEDICARE, SELFPAY | PROVIDERS: PCP Internal Medicine; Visit Provider Internal Medicine | DX: Z95.2 Presence of prosthetic heart valve (principal); Z79.01 Long term (current) use of anticoagulants; Z51.81 Encounter for therapeutic drug level monitoring | CPT/HCPCS: 85610; 99211 ==

== ENCOUNTER 2023-12-20 08:55 | Outpatient (AMB) | payer MEDICARE, SELFPAY ==
[2023-12-20 09:00] LABS: Prothrombin Time Whole Bld POC 28.1 sec (11.1-13.5); ~PT, ~INR - Anti Coag Clinic 2.3 (0.9-1.1)
--- NOTE | 2023-12-20 09:04 | MHC.OFFVISCO ---
Intake Intake Visit Reasons: Anticoagulation Allergies diphenhydramine [From BENADRYL] Allergy (Intermediate, Verified 12/20/23 08:56) RESTLESS LEGS lisinopril [LISINOPRIL] Allergy (Intermediate, Verified 12/20/23 08:56) DIZZINESS Lisiopril/HCTZ Allergy (Unknown, Uncoded 12/20/23 08:56) dizziness Medication List - Last Reconciled 12/20/23 by Nicole Mercado RN amlodipine 10 mg PO DAILY levothyroxine 150 mcg PO DAILY losartan 25 mg PO DAILY metoprolol succinate ER 50 mg PO DAILY rosuvastatin 40 mg PO DAILY tamsulosin (Flomax) 0.4 mg PO DAILY warfarin 5 mg See Protocol PO DAILY Nursing Note INR: 2.3 in therapeutic range Medications and supplements reviewed No changes in health, diet, medications, or supplements, Denies any signs and symptoms of bleeding or bruising or clotting. Bleeding, bruising, clotting discussed Nutritional guidance given Dose: KEEP SAME 7.5MG X 1 DAY/ 10MG X 6 DAYS F/U INR: 2WEEKS DUE TO LABILE INR Patient verbalizes understanding of instructions given Coding Level of Care Code Est Patient Level 1 Diagnoses Current use of anticoagulant therapy Z79.01 Assessment & Plan Assessment & Plan (1) Current use of anticoagulant therapy: Code(s): Z79.01 - supervisor intermediates (current) 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
== END 2023-12-20 09:05 | disposition home or self-care (01) ==
LOC: HO.ACS 08:55
PROVIDERS: PCP Internal Medicine; Visit Provider Internal Medicine
DX: Z79.01 Long term (current) use of anticoagulants (principal)

== ENCOUNTER → 2023-12-20 08:55 | Outpatient (BNVA) | payer MEDICARE, SELFPAY | PROVIDERS: PCP Internal Medicine; Visit Provider Internal Medicine | DX: Z95.2 Presence of prosthetic heart valve (principal); Z79.01 Long term (current) use of anticoagulants; Z51.81 Encounter for therapeutic drug level monitoring | CPT/HCPCS: 85610; 99211 ==

== ENCOUNTER 2024-01-03 08:03 | Outpatient (REF) | payer MEDICARE, SELFPAY ==
[2024-01-03 09:57] LABS: Anion Gap 10 (12-20); Blood Urea Nitrogen 23 mg/dL (9-16); Calcium 9.6 mg/dL (8.4-10.2); Carbon Dioxide 26 mmol/L (22-29); Chloride 107 mmol/L (96-108); Estimated Glomerular Filt Rate 53; Glucose Random 97 mg/dL (60-115); Potassium 4.1 mmol/L (3.3-5.1); Sodium 139 mmol/L (135-145)
== END 2024-01-03 08:04 | disposition home or self-care (01) ==
LOC: HO.LAB 08:03
PROVIDERS: PCP Internal Medicine; Visit Provider Internal Medicine
DX: N17.9 Acute kidney failure, unspecified (principal); N18.9 Chronic kidney disease, unspecified
CPT/HCPCS: 36415; 80048; 85610; 99212

== ENCOUNTER 2024-01-03 08:03 | Outpatient (AMB) | payer MEDICARE, SELFPAY ==
[2024-01-03 08:13] LABS: Prothrombin Time Whole Bld POC 16.5 sec (11.1-13.5); ~PT, ~INR - Anti Coag Clinic 1.4 (0.9-1.1)
--- NOTE | 2024-01-03 08:18 | MHC.OFFVISCO ---
Intake Intake Visit Reasons: Anticoagulation Allergies diphenhydramine [From BENADRYL] Allergy (Intermediate, Verified 01/03/24 08:04) RESTLESS LEGS lisinopril [LISINOPRIL] Allergy (Intermediate, Verified 01/03/24 08:04) DIZZINESS Lisiopril/HCTZ Allergy (Unknown, Uncoded 01/03/24 08:04) dizziness Medication List - Last Reconciled 01/03/24 by Stefani Newman, RN amlodipine 10 mg PO DAILY levothyroxine 150 mcg PO DAILY losartan 25 mg PO DAILY metoprolol succinate ER 50 mg PO DAILY rosuvastatin 40 mg PO DAILY tamsulosin (Flomax) 0.4 mg PO DAILY warfarin 5 mg See Protocol PO DAILY Nursing Note Amb to [facility] feeling ok, sts was in hospital Wedu Wednesday sts he had internal bleeding - pt shows this RN large area of light ecchymosis right side to right abdomen sts his INR at [facility] was 4 something sts he was given IV with something to help clotting (?platelets/FFP) no records available to me at this time sts he was sore -05/20 denies any injury to the area sts only that he did yardwork sts soreness much better now Medications and supplements reviewed, no warfarin Wednesday and is not sure if received any during hospitalization, took usual dosing Wednesday and Wednesday has order for BMP labs today No other changes in health, diet, medications, or supplements Denies any unusual signs and symptoms of bruising, bleeding Denies any new Chest pain, SOB, or clotting INR: 1.4 critical low Nutritional guidance given:no greens til seen Dose: boost warfarin dosing today and tomorrow to 15mg (vs 10mg) then resume usual dosing; 10mg daily x 6 days and 7.5mg on Wednesday F/U INR:01/[address] Gary Patient verbalizes understanding of instructions given with accurate read back/ teach back of dosing TC to Dr Gary office- await call back, Critical INR reported Coding Level of Care Code Est Patient Level 2 Diagnoses Current use of anticoagulant therapy Z79.01 Time Spent (min) 30 Assessment & Plan Assessment & Plan (1) Current use of anticoagulant therapy: Code(s): Z79.01 - ocean transportation intermediary (current) 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
== END 2024-01-03 08:33 | disposition home or self-care (01) ==
LOC: HO.ACS 08:03
PROVIDERS: PCP Internal Medicine; Visit Provider Internal Medicine
DX: Z79.01 Long term (current) use of anticoagulants (principal)

== ENCOUNTER 2024-01-06 08:18 | Outpatient (AMB) | payer MEDICARE, SELFPAY ==
[2024-01-06 08:29] LABS: Prothrombin Time Whole Bld POC 23.7 sec (11.1-13.5)
--- NOTE | 2024-01-06 08:35 | MHC.OFFVISCO ---
Intake Intake Visit Reasons: Anticoagulation Allergies diphenhydramine [From BENADRYL] Allergy (Intermediate, Verified 01/06/24 08:23) RESTLESS LEGS lisinopril [LISINOPRIL] Allergy (Intermediate, Verified 01/06/24 08:23) DIZZINESS Lisiopril/HCTZ Allergy (Unknown, Uncoded 01/06/24 08:23) dizziness Medication List - Last Reconciled 01/06/24 by Nicole Mercado RN amlodipine 10 mg PO DAILY levothyroxine 150 mcg PO DAILY losartan 25 mg PO DAILY metoprolol succinate ER 50 mg PO DAILY rosuvastatin 40 mg PO DAILY tamsulosin (Flomax) 0.4 mg PO DAILY warfarin 5 mg See Protocol PO DAILY Nursing Note INR: 2.0 in therapeutic range Medications and supplements reviewed PT STATES HE HAD A VEIN ANEURYSM BURST ON RIGHT SIDE AND THAT IS WHAT PRODUCED PAIN INITIALLY THEN DARK BRUISING, HEALING NOW AND GETTING LIGHT IN COLOR AND PAIN DECREASING, KIDNYS EFFECTED BY CONTRAST- HAVING F/U LABS AND MD VISIT TODAY WITH PCP Denies any signs and symptoms of bleeding or bruising or clotting. Bleeding, bruising, clotting discussed Nutritional guidance given - REVIEW FOOD LIST WEEKLY, RESUME GREENWednesday Dose: RESUME USUAL DOSE 7.5MG X 1 DAY/ 10MG X 6DAYS F/U INR: 1 WEEK Patient verbalizes understanding of instructions given Coding Level of Care Code Est Patient Level 1 Diagnoses Current use of anticoagulant therapy Z79.01 Assessment & Plan Assessment & Plan (1) Current use of anticoagulant therapy: Code(s): Z79.01 - FPC (current) 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
== END 2024-01-06 08:42 | disposition home or self-care (01) ==
LOC: HO.ACS 08:18
PROVIDERS: PCP Internal Medicine; Visit Provider Internal Medicine
DX: Z79.01 Long term (current) use of anticoagulants (principal)

== ENCOUNTER → 2024-01-06 08:18 | Outpatient (BNVA) | payer MEDICARE, SELFPAY | PROVIDERS: PCP Internal Medicine; Visit Provider Internal Medicine | DX: Z95.2 Presence of prosthetic heart valve (principal); Z79.01 Long term (current) use of anticoagulants; Z51.81 Encounter for therapeutic drug level monitoring | CPT/HCPCS: 85610; 99211 ==

== ENCOUNTER → 2024-01-12 08:27 | Outpatient (BNVA) | payer MEDICARE, SELFPAY | PROVIDERS: PCP Internal Medicine; Visit Provider Internal Medicine | DX: Z95.2 Presence of prosthetic heart valve (principal); Z51.81 Encounter for therapeutic drug level monitoring; Z79.01 Long term (current) use of anticoagulants | CPT/HCPCS: 85610; 99211 ==

== ENCOUNTER 2024-01-25 09:42 | Outpatient (AMB) | payer MEDICARE, SELFPAY ==
--- NOTE | 2024-01-25 10:04 | MHC.OFFVISCO ---
Intake Intake Visit Reasons: Anticoagulation Allergies diphenhydramine [From BENADRYL] Allergy (Intermediate, Verified 01/25/24 10:02) RESTLESS LEGS lisinopril [LISINOPRIL] Allergy (Intermediate, Verified 01/25/24 10:02) DIZZINESS Lisiopril/HCTZ Allergy (Unknown, Uncoded 01/25/24 10:02) dizziness Medication List - Last Reconciled 01/25/24 by Nicole Mercado RN amlodipine 10 mg PO DAILY levothyroxine 150 mcg PO DAILY losartan 25 mg PO DAILY metoprolol succinate ER 50 mg PO DAILY rosuvastatin 40 mg PO DAILY tamsulosin (Flomax) 0.4 mg PO DAILY warfarin 5 mg See Protocol PO DAILY Nursing Note INR:3.0 in therapeutic range Medications and supplements reviewed No changes in health, diet, medications, or supplements, Denies any signs and symptoms of bleeding or bruising or clotting. 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
[2024-01-25 10:08] LABS: Prothrombin Time Whole Bld POC 35.7 sec (11.1-13.5)
== END 2024-01-25 10:13 | disposition home or self-care (01) ==
LOC: HO.ACS 09:42
PROVIDERS: PCP Internal Medicine; Visit Provider Internal Medicine
DX: Z79.01 Long term (current) use of anticoagulants (principal)

== ENCOUNTER → 2024-01-25 09:42 | Outpatient (BNVA) | payer MEDICARE, SELFPAY | PROVIDERS: PCP Internal Medicine; Visit Provider Internal Medicine | DX: Z95.2 Presence of prosthetic heart valve (principal); Z79.01 Long term (current) use of anticoagulants; Z51.81 Encounter for therapeutic drug level monitoring | CPT/HCPCS: 85610; 99211 ==

== ENCOUNTER 2024-02-08 07:56 | Outpatient (AMB) | payer MEDICARE, SELFPAY ==
[2024-02-08 08:10] LABS: Prothrombin Time Whole Bld POC 40.4 sec (11.1-13.5); ~PT, ~INR - Anti Coag Clinic 3.4 (0.9-1.1)
--- NOTE | 2024-02-08 08:16 | MHC.OFFVISCO ---
Intake Intake Visit Reasons: Anticoagulation Allergies diphenhydramine [From BENADRYL] Allergy (Intermediate, Verified 01/25/24 10:02) RESTLESS LEGS lisinopril [LISINOPRIL] Allergy (Intermediate, Verified 01/25/24 10:02) DIZZINESS Lisiopril/HCTZ Allergy (Unknown, Uncoded 01/25/24 10:02) dizziness Nursing Note INR: 3.4 out of therapeutic range Medications and supplements reviewed No changes in health, , medications, or supplements, will have meals on wheels almost daily, has not had greens - will have spinach today Denies any signs and symptoms of bleeding or bruising or clotting. Bleeding, bruising, clotting discussed Nutritional guidance given Dose: keep same F/U INR: 4 weeks Patient verbalizes understanding of instructions given Coding Level of Care Code Est Patient Level 1 Diagnoses Current use of anticoagulant therapy Z79.01 Results AMB INR Fingerstick AMB INR Fingerstick 3.4 Last Edit by Nicole Mercado RN on 02/08/24 08:12 MANUAL ENTRY Assessment & Plan Assessment & Plan (1) Current use of anticoagulant therapy: Code(s): Z79.01 - shelter (current) 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
== END 2024-02-08 08:17 | disposition home or self-care (01) ==
LOC: HO.ACS 07:56
PROVIDERS: PCP Internal Medicine; Visit Provider Internal Medicine
DX: Z79.01 Long term (current) use of anticoagulants (principal)

== ENCOUNTER → 2024-02-08 07:56 | Outpatient (BNVA) | payer MEDICARE, SELFPAY | PROVIDERS: PCP Internal Medicine; Visit Provider Internal Medicine | DX: Z95.2 Presence of prosthetic heart valve (principal); Z51.81 Encounter for therapeutic drug level monitoring; Z79.01 Long term (current) use of anticoagulants | CPT/HCPCS: 85610; 99211 ==

== ENCOUNTER 2024-02-18 12:12 | Outpatient (REF) | payer MEDICARE, SELFPAY ==
[2024-02-18 13:13] LABS: Alanine Aminotransferase 15 U/L (0-40); Albumin Level 3.9 g/dL (3.5-5.0); Alkaline Phosphatase 75 U/L (39-117); Aspartate Amino Transferase 18 U/L (5-37); Bilirubin Direct 0.2 mg/dL (0.0-0.5); Bilirubin Total 0.4 mg/dL (0.0-1.0); Cholesterol 148 mg/dL (<200); HDL Cholesterol 59 mg/dL (>40); LDL Cholesterol Calculated 77 mg/dL (<100); Total Protein 7.1 g/dL (6.5-8.0); Triglycerides 61 mg/dL (<150)
[2024-02-18 14:26] LABS: Reflex LDLD? No
== END 2024-02-18 12:13 | disposition home or self-care (01) ==
LOC: HO.LNP 12:12
PROVIDERS: Visit Provider Internal Medicine
DX: E78.00 Pure hypercholesterolemia, unspecified (principal)
CPT/HCPCS: 80061; 80076

== ENCOUNTER 2024-02-21 08:25 | Outpatient (AMB) | payer MEDICARE, SELFPAY ==
--- NOTE | 2024-02-21 08:25 | MHC.OFFVISCO ---
Intake Intake Visit Reasons: Anticoagulation Allergies diphenhydramine [From BENADRYL] Allergy (Intermediate, Verified 02/21/24 08:25) RESTLESS LEGS lisinopril [LISINOPRIL] Allergy (Intermediate, Verified 02/21/24 08:25) DIZZINESS Lisiopril/HCTZ Allergy (Unknown, Uncoded 02/21/24 08:25) dizziness Nursing Note INR: 2.4- in therapeutic range of 2-3 Medications and supplements reviewed- no changes No changes in health, diet, medications, or supplements, Denies any signs and symptoms of bleeding or bruising or clotting. 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
[2024-02-22 15:59] LABS: ~PT, ~INR - Anti Coag Clinic 2.4 (0.9-1.1)
== END 2024-02-21 08:41 | disposition home or self-care (01) ==
LOC: HO.ACS 08:25
PROVIDERS: PCP Internal Medicine; Visit Provider Internal Medicine
DX: Z79.01 Long term (current) use of anticoagulants (principal)

== ENCOUNTER → 2024-02-21 08:25 | Outpatient (BNVA) | payer MEDICARE, SELFPAY | PROVIDERS: PCP Internal Medicine; Visit Provider Internal Medicine | DX: Z95.2 Presence of prosthetic heart valve (principal); Z79.01 Long term (current) use of anticoagulants; Z51.81 Encounter for therapeutic drug level monitoring | CPT/HCPCS: 85610; 99211 ==

== ENCOUNTER 2024-03-07 07:56 | Outpatient (AMB) | payer MEDICARE, SELFPAY ==
[2024-03-07 08:11] LABS: Prothrombin Time Whole Bld POC 34.7 sec (11.1-13.5); ~PT, ~INR - Anti Coag Clinic 2.9 (0.9-1.1)
--- NOTE | 2024-03-07 08:11 | MHC.OFFVISCO ---
Intake Intake Visit Reasons: Anticoagulation Allergies diphenhydramine [From BENADRYL] Allergy (Intermediate, Verified 03/07/24 08:02) RESTLESS LEGS lisinopril [LISINOPRIL] Allergy (Intermediate, Verified 03/07/24 08:02) DIZZINESS Lisiopril/HCTZ Allergy (Unknown, Uncoded 03/07/24 08:02) dizziness Medication List - Last Reconciled 03/07/24 by Stefani Kelly RN amlodipine 10 mg PO DAILY levothyroxine 150 mcg PO DAILY losartan 25 mg PO DAILY metoprolol succinate ER 50 mg PO DAILY rosuvastatin 40 mg PO DAILY tamsulosin (Flomax) 0.4 mg PO DAILY warfarin 5 mg See Protocol PO DAILY Nursing Note INR: 2.9 in therapeutic range of 2-3 Medications and supplements reviewed: no changes No changes in health, diet, medications, or supplements, Denies any signs and symptoms of bleeding or bruising or clotting. 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
== END 2024-03-07 08:13 | disposition home or self-care (01) ==
LOC: HO.ACS 07:56
PROVIDERS: PCP Internal Medicine; Visit Provider Internal Medicine
DX: Z79.01 Long term (current) use of anticoagulants (principal)

== ENCOUNTER → 2024-03-07 07:56 | Outpatient (BNVA) | payer MEDICARE, SELFPAY | PROVIDERS: PCP Internal Medicine; Visit Provider Internal Medicine | DX: Z95.2 Presence of prosthetic heart valve (principal); Z79.01 Long term (current) use of anticoagulants; Z51.81 Encounter for therapeutic drug level monitoring | CPT/HCPCS: 85610; 99211 ==

== ENCOUNTER 2024-03-20 07:57 | Outpatient (AMB) | payer MEDICARE, SELFPAY ==
[2024-03-20 08:07] LABS: Prothrombin Time Whole Bld POC 19.8 sec (11.1-13.5); ~PT, ~INR - Anti Coag Clinic 1.6 (0.9-1.1)
--- NOTE | 2024-03-20 08:07 | MHC.OFFVISCO ---
Intake Intake Visit Reasons: Anticoagulation Allergies diphenhydramine [From BENADRYL] Allergy (Intermediate, Verified 03/20/24 07:58) RESTLESS LEGS lisinopril [LISINOPRIL] Allergy (Intermediate, Verified 03/20/24 07:58) DIZZINESS Lisiopril/HCTZ Allergy (Unknown, Uncoded 03/20/24 07:58) dizziness Medication List - Last Reconciled 03/20/24 by Stefani Kelly RN amlodipine 10 mg PO DAILY levothyroxine 150 mcg PO DAILY losartan 25 mg PO DAILY metoprolol succinate ER 50 mg PO DAILY rosuvastatin 40 mg PO DAILY tamsulosin (Flomax) 0.4 mg PO DAILY warfarin 5 mg See Protocol PO DAILY Nursing Note INR 1.6?out of therapeutic range of 2-3 Pt states he missed a 10 mg dose Wednesday, 2 days ago Medications and supplements reviewed Patient status: well Medications or supplements: no changes Diet: usual diet for pt Denies any signs and symptoms of bleeding or clotting or unusual bruising Bleeding, bruising, clotting discussed Nutritional guidance given: to avoid greens and have a serving of foods from thelist that raises the INR Dose: increase today to 12.5mg (10mg) and then resume usual dose of 10 mg X 6 days and 7.5mg X 1 day F/U INR Date : 1 week?? Patient verbalizing understanding of instructions given. 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
== END 2024-03-20 08:12 | disposition home or self-care (01) ==
LOC: HO.ACS 07:57
PROVIDERS: PCP Internal Medicine; Visit Provider Internal Medicine
DX: Z79.01 Long term (current) use of anticoagulants (principal)

== ENCOUNTER → 2024-03-20 07:57 | Outpatient (BNVA) | payer MEDICARE, SELFPAY | PROVIDERS: PCP Internal Medicine; Visit Provider Internal Medicine | DX: Z95.2 Presence of prosthetic heart valve (principal); Z79.01 Long term (current) use of anticoagulants; Z51.81 Encounter for therapeutic drug level monitoring | CPT/HCPCS: 85610; 99211 ==

== ENCOUNTER → 2024-03-27 07:55 | Outpatient (BNVA) | payer MEDICARE, SELFPAY | PROVIDERS: PCP Internal Medicine; Visit Provider Internal Medicine | DX: Z95.2 Presence of prosthetic heart valve (principal); Z79.01 Long term (current) use of anticoagulants; Z51.81 Encounter for therapeutic drug level monitoring | CPT/HCPCS: 85610; 99211 ==

== ENCOUNTER 2024-04-10 07:58 | Outpatient (AMB) | payer MEDICARE, SELFPAY ==
--- NOTE | 2024-04-10 08:09 | MHC.OFFVISCO ---
Intake Intake Visit Reasons: Anticoagulation Allergies diphenhydramine [From BENADRYL] Allergy (Intermediate, Verified 04/10/24 08:05) RESTLESS LEGS lisinopril [LISINOPRIL] Allergy (Intermediate, Verified 04/10/24 08:05) DIZZINESS Lisiopril/HCTZ Allergy (Unknown, Uncoded 04/10/24 08:05) dizziness Medication List - Last Reconciled 04/10/24 by Noemi Holder RN amlodipine 10 mg PO DAILY levothyroxine 150 mcg PO DAILY losartan 25 mg PO DAILY metoprolol succinate ER 50 mg PO DAILY rosuvastatin 40 mg PO DAILY tamsulosin (Flomax) 0.4 mg PO DAILY warfarin 5 mg See Protocol PO DAILY Nursing Note INR: 2.7- in therapeutic range of 2-3 Medications and supplements reviewed No changes in health, diet, medications, or supplements, Denies any signs and symptoms of bleeding or bruising or clotting. Bleeding, bruising, clotting discussed Nutritional guidance given - meals on wheels 7 days a week Dose: 7.5mg x 1. 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
[2024-04-10 08:10] LABS: Prothrombin Time Whole Bld POC 32.4 sec (11.1-13.5); ~PT, ~INR - Anti Coag Clinic 2.7 (0.9-1.1)
== END 2024-04-10 08:15 | disposition home or self-care (01) ==
LOC: HO.ACS 07:58
PROVIDERS: PCP Internal Medicine; Visit Provider Internal Medicine
DX: Z79.01 Long term (current) use of anticoagulants (principal)

== ENCOUNTER → 2024-04-10 07:58 | Outpatient (BNVA) | payer MEDICARE, SELFPAY | PROVIDERS: PCP Internal Medicine; Visit Provider Internal Medicine | DX: Z95.2 Presence of prosthetic heart valve (principal); Z51.81 Encounter for therapeutic drug level monitoring; Z79.01 Long term (current) use of anticoagulants | CPT/HCPCS: 85610; 99211 ==

== ENCOUNTER 2024-05-01 07:59 | Outpatient (AMB) | payer MEDICARE, SELFPAY ==
[2024-05-01 08:07] LABS: Prothrombin Time Whole Bld POC 24.5 sec (11.1-13.5)
--- NOTE | 2024-05-01 08:10 | MHC.OFFVISCO ---
Intake Intake Visit Reasons: Anticoagulation Allergies diphenhydramine [From BENADRYL] Allergy (Intermediate, Verified 05/01/24 08:02) RESTLESS LEGS lisinopril [LISINOPRIL] Allergy (Intermediate, Verified 05/01/24 08:02) DIZZINESS Lisiopril/HCTZ Allergy (Unknown, Uncoded 05/01/24 08:02) dizziness Medication List - Last Reconciled 05/01/24 by Stefani Kelly, RN amlodipine 10 mg PO DAILY levothyroxine 150 mcg PO DAILY losartan 25 mg PO DAILY metoprolol succinate ER 50 mg PO DAILY rosuvastatin 40 mg PO DAILY tamsulosin (Flomax) 0.4 mg PO DAILY warfarin 5 mg See Protocol PO DAILY Nursing Note INR: 2.0 in therapeutic range of 2-3 Medications and supplements reviewed No changes in health, diet, medications, or supplements, Denies any signs and symptoms of bleeding or bruising or clotting. 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
== END 2024-05-01 08:15 | disposition home or self-care (01) ==
LOC: HO.ACS 07:59
PROVIDERS: PCP Internal Medicine; Visit Provider Internal Medicine
DX: Z79.01 Long term (current) use of anticoagulants (principal)

== ENCOUNTER → 2024-05-01 07:59 | Outpatient (BNVA) | payer MEDICARE, SELFPAY | PROVIDERS: PCP Internal Medicine; Visit Provider Internal Medicine | DX: Z95.2 Presence of prosthetic heart valve (principal); Z79.01 Long term (current) use of anticoagulants; Z51.81 Encounter for therapeutic drug level monitoring | CPT/HCPCS: 85610; 99211 ==

== ENCOUNTER 2024-05-22 07:52 | Outpatient (AMB) | payer MEDICARE, SELFPAY ==
--- NOTE | 2024-05-22 08:02 | MHC.OFFVISCO ---
Intake Intake Visit Reasons: Anticoagulation Allergies diphenhydramine [From BENADRYL] Allergy (Intermediate, Verified 05/22/24 07:52) RESTLESS LEGS lisinopril [LISINOPRIL] Allergy (Intermediate, Verified 05/22/24 07:52) DIZZINESS Lisiopril/HCTZ Allergy (Unknown, Uncoded 05/22/24 07:52) dizziness Medication List - Last Reconciled 05/22/24 by Nicole Mercado RN amlodipine 10 mg PO DAILY levothyroxine 150 mcg PO DAILY losartan 25 mg PO DAILY metoprolol succinate ER 50 mg PO DAILY rosuvastatin 40 mg PO DAILY tamsulosin (Flomax) 0.4 mg PO DAILY warfarin 5 mg See Protocol PO DAILY Nursing Note INR: 2.1 in therapeutic range- Pt states my numbers are better now that i have meals on wheels Medications and supplements reviewed No changes in health, diet, medications, or supplements, Denies any signs and symptoms of bleeding or bruising or clotting. 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
[2024-05-22 08:07] LABS: ~PT, ~INR - Anti Coag Clinic 2.1 (0.9-1.1)
== END 2024-05-22 08:03 | disposition home or self-care (01) ==
LOC: HO.ACS 07:52
PROVIDERS: PCP Internal Medicine; Visit Provider Internal Medicine
DX: Z79.01 Long term (current) use of anticoagulants (principal)

== ENCOUNTER → 2024-05-22 07:52 | Outpatient (BNVA) | payer MEDICARE, SELFPAY | PROVIDERS: PCP Internal Medicine; Visit Provider Internal Medicine | DX: Z95.2 Presence of prosthetic heart valve (principal); Z79.01 Long term (current) use of anticoagulants; Z51.81 Encounter for therapeutic drug level monitoring | CPT/HCPCS: 85610; 99211 ==

== ENCOUNTER 2024-06-15 07:34 | Outpatient (AMB) | payer MEDICARE, SELFPAY ==
[2024-06-15 07:39] LABS: Prothrombin Time Whole Bld POC 37.5 sec (11.1-13.5); ~PT, ~INR - Anti Coag Clinic 3.1 (0.9-1.1)
--- NOTE | 2024-06-15 07:43 | MHC.OFFVISCO ---
Intake Intake Visit Reasons: Anticoagulation Allergies diphenhydramine [From BENADRYL] Allergy (Intermediate, Verified 06/15/24 07:34) RESTLESS LEGS lisinopril [LISINOPRIL] Allergy (Intermediate, Verified 06/15/24 07:34) DIZZINESS Lisiopril/HCTZ Allergy (Unknown, Uncoded 06/15/24 07:34) dizziness Medication List - Last Reconciled 06/15/24 by Nicole Mercado RN amlodipine 10 mg PO DAILY levothyroxine 150 mcg PO DAILY losartan 25 mg PO DAILY metoprolol succinate ER 50 mg PO DAILY rosuvastatin 40 mg PO DAILY tamsulosin (Flomax) 0.4 mg PO DAILY warfarin 5 mg See Protocol PO DAILY Nursing Note INR: 3.1 near therapeutic range 2.0-3.0- pt states he has been receiving meals on wheels his INR has been more stable Medications and supplements reviewed No changes in health, diet, medications, or supplements, Denies any signs and symptoms of bleeding or bruising or clotting. 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
== END 2024-06-15 07:45 | disposition home or self-care (01) ==
LOC: HO.ACS 07:34
PROVIDERS: PCP Internal Medicine; Visit Provider Internal Medicine
DX: Z79.01 Long term (current) use of anticoagulants (principal)

== ENCOUNTER → 2024-06-15 07:34 | Outpatient (BNVA) | payer MEDICARE, SELFPAY | PROVIDERS: PCP Internal Medicine; Visit Provider Internal Medicine | DX: Z95.2 Presence of prosthetic heart valve (principal); Z79.01 Long term (current) use of anticoagulants; Z51.81 Encounter for therapeutic drug level monitoring | CPT/HCPCS: 85610; 99211 ==

== ENCOUNTER 2024-07-10 08:00 | Outpatient (AMB) | payer MEDICARE, SELFPAY ==
[2024-07-10 08:08] LABS: Prothrombin Time Whole Bld POC 34.9 sec (11.1-13.5); ~PT, ~INR - Anti Coag Clinic 2.9 (0.9-1.1)
--- NOTE | 2024-07-10 08:13 | MHC.OFFVISCO ---
Intake Intake Visit Reasons: Anticoagulation Allergies diphenhydramine [From BENADRYL] Allergy (Intermediate, Verified 07/10/24 08:03) RESTLESS LEGS lisinopril [LISINOPRIL] Allergy (Intermediate, Verified 07/10/24 08:03) DIZZINESS Lisiopril/HCTZ Allergy (Unknown, Uncoded 07/10/24 08:03) dizziness Medication List - Last Reconciled 07/10/24 by Stefani Kelly, RN amlodipine 10 mg PO DAILY levothyroxine 150 mcg PO DAILY losartan 25 mg PO DAILY metoprolol succinate ER 50 mg PO DAILY rosuvastatin 40 mg PO DAILY tamsulosin (Flomax) 0.4 mg PO DAILY warfarin 5 mg See Protocol PO DAILY Nursing Note INR: 2.9 in therapeutic range of 2-3 Medications and supplements reviewed No changes in health, diet, medications, or supplements, Denies any signs and symptoms of bleeding or bruising or clotting. 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
== END 2024-07-10 08:15 | disposition home or self-care (01) ==
LOC: HO.ACS 08:00
PROVIDERS: PCP Internal Medicine; Visit Provider Internal Medicine
DX: Z79.01 Long term (current) use of anticoagulants (principal)

== ENCOUNTER → 2024-07-10 08:00 | Outpatient (BNVA) | payer MEDICARE, SELFPAY | PROVIDERS: PCP Internal Medicine; Visit Provider Internal Medicine | DX: Z95.2 Presence of prosthetic heart valve (principal); Z79.01 Long term (current) use of anticoagulants; Z51.81 Encounter for therapeutic drug level monitoring | CPT/HCPCS: 85610; 99211 ==

== ENCOUNTER 2024-08-07 08:01 | Outpatient (AMB) | payer MEDICARE, SELFPAY ==
--- NOTE | 2024-08-07 08:05 | MHC.OFFVISCO ---
Intake Intake Visit Reasons: Anticoagulation Allergies diphenhydramine [From BENADRYL] Allergy (Intermediate, Verified 08/07/24 08:01) RESTLESS LEGS lisinopril [LISINOPRIL] Allergy (Intermediate, Verified 08/07/24 08:01) DIZZINESS Lisiopril/HCTZ Allergy (Unknown, Uncoded 08/07/24 08:01) dizziness Medication List - Last Reconciled 08/07/24 by Noemi Holder RN amlodipine 10 mg PO DAILY levothyroxine 150 mcg PO DAILY losartan 25 mg PO DAILY metoprolol succinate ER 50 mg PO DAILY rosuvastatin 40 mg PO DAILY tamsulosin (Flomax) 0.4 mg PO DAILY warfarin 5 mg See Protocol PO DAILY Nursing Note INR 3.4-? out of therapeutic range of 2-3 Medications and supplements reviewed Patient status: no c.o, right eye sclera sl reddened/irritated Medications or supplements: no changes Diet: same- has not had many greens Denies any signs and symptoms of bleeding or clotting or unusual bruising Bleeding, bruising, clotting discussed Nutritional guidance given: eat greens today, no reds for 2 days Dose: 7.5mg today then cont 10mg x 6, 7.5mg x 1 F/U INR Date : 2 weeks Patient verbalizing understanding of instructions given. 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
[2024-08-07 08:06] LABS: Prothrombin Time Whole Bld POC 41.1 sec (11.1-13.5); ~PT, ~INR - Anti Coag Clinic 3.4 (0.9-1.1)
== END 2024-08-07 08:11 | disposition home or self-care (01) ==
LOC: HO.ACS 08:01
PROVIDERS: PCP Internal Medicine; Visit Provider Internal Medicine
DX: Z79.01 Long term (current) use of anticoagulants (principal)

== ENCOUNTER → 2024-08-07 08:01 | Outpatient (BNVA) | payer MEDICARE, SELFPAY | PROVIDERS: PCP Internal Medicine; Visit Provider Internal Medicine | DX: Z95.2 Presence of prosthetic heart valve (principal); Z79.01 Long term (current) use of anticoagulants; Z51.81 Encounter for therapeutic drug level monitoring | CPT/HCPCS: 85610; 99211 ==

== ENCOUNTER 2024-08-18 11:20 | Outpatient (REF) | payer MEDICARE, SELFPAY ==
[2024-08-18 11:33] LABS: Appearance Urine Clear; Basophils Percent Auto 0.2 % (0-2); Color Urine Yellow; Eosinophils Absolute Auto 0.2 X10*3/uL (0.0-0.4); Eosinophils Percent Auto 2.9 % (0-4); Glucose Urine UA Negative (Negative); Hematocrit 39.5 % (42.0-52.0); Hemoglobin 12.8 g/dl (14.0-18.0); Imm Gran Abs Auto 0.01 X10*3/uL (0.00-0.03); Imm Gran Pct Auto 0.2 % (0.0-0.4); Leukocyte Esterase Urine Negative (Negative); Lymphocytes Absolute Auto 1.4 X10*3/uL (1.2-4.9); Lymphocytes Percent Auto 22.8 % (20-40); MANUAL DIFF FLAG NO; Mean Corpuscular HGB Conc 32.4 g/dl (31.0-36.0); Mean Corpuscular Hemoglobin 29.5 pg (27.0-33.0); Mean Platelet Volume 10.5 fL (9.4-12.4); Monocytes Absolute Auto 0.6 X10*3/uL (0.1-1.2); Neutrophils Percent Auto 63.9 % (45-73); Nitrite Urine Negative (Negative); Platelet Count 205 X10*3/uL (160-400); Red Blood Count 4.34 X10*6/uL (4.60-5.80); Red Cell Distribution Width 14.7 % (11.0-16.0); Specific Gravity - Urine 1.015 (1.005-1.025); UMIC TRIGGER UACC YES; Urine Blood Large (3+) (Negative); Urine Ketones Negative (Negative); Urine Protein 300 (3+) mg/dL (Neg-Trace); White Blood Count 6.2 X10*3/uL (4.8-10.8)
[2024-08-18 11:40] LABS: Bacteria Urine None Seen (None Seen); Hyaline Casts Urine 0-2 /LPF (0-2); RBC Urine >20 /HPF (0-2); Squamous Epithelial Cell Urine 0-2 /HPF (0-2); WBC Urine 0-5 /HPF (0-5)
[2024-08-18 11:57] LABS: Alanine Aminotransferase 18 U/L (0-40); Alkaline Phosphatase 70 U/L (39-117); Anion Gap 11 (12-20); Aspartate Amino Transferase 28 U/L (5-37); Blood Urea Nitrogen 20 mg/dL (9-16); Calcium 9.6 mg/dL (8.4-10.2); Carbon Dioxide 25 mmol/L (22-29); Chloride 109 mmol/L (96-108); Cholesterol 167 mg/dL (<200); Estimated Glomerular Filt Rate 54; Glucose Fasting 116 mg/dL (60-99); HDL Cholesterol 88 mg/dL (>40); LDL Cholesterol Calculated 63 mg/dL (<100); Potassium 3.9 mmol/L (3.3-5.1); Sodium 141 mmol/L (135-145); Total Protein 7.2 g/dL (6.5-8.0); Triglycerides 84 mg/dL (<150)
[2024-08-18 12:07] LABS: PSA,Total (Free>4and<10) 3.01 ng/mL (0.00-4.00)
== END 2024-08-18 11:21 | disposition home or self-care (01) ==
LOC: HO.LNP 11:20
PROVIDERS: Visit Provider Internal Medicine
DX: Z00.00 Encounter for general adult medical examination without abnormal findings (principal); I10 Essential (primary) hypertension; E78.00 Pure hypercholesterolemia, unspecified; N18.1 Chronic kidney disease, stage 1; Z12.5 Encounter for screening for malignant neoplasm of prostate
CPT/HCPCS: 80053; 80061; 81001; 84153; 85025

== ENCOUNTER 2024-08-21 08:00 | Outpatient (AMB) | payer MEDICARE, SELFPAY ==
[2024-08-21 08:11] LABS: Prothrombin Time Whole Bld POC 24.1 sec (11.1-13.5)
--- NOTE | 2024-08-21 08:12 | MHC.OFFVISCO ---
Intake Intake Visit Reasons: Anticoagulation Allergies diphenhydramine [From BENADRYL] Allergy (Intermediate, Verified 08/21/24 08:02) RESTLESS LEGS lisinopril [LISINOPRIL] Allergy (Intermediate, Verified 08/21/24 08:02) DIZZINESS Lisiopril/HCTZ Allergy (Unknown, Uncoded 08/21/24 08:02) dizziness Medication List - Last Reconciled 08/21/24 by Stefani Newman RN amlodipine 10 mg PO DAILY levothyroxine 150 mcg PO DAILY losartan 25 mg PO DAILY metoprolol succinate ER 50 mg PO DAILY rosuvastatin 40 mg PO DAILY tamsulosin (Flomax) 0.4 mg PO DAILY warfarin 5 mg See Protocol PO DAILY Nursing Note Amb to [facility] feeling well, no C/O Medications and supplements reviewed No changes in health, diet, medications, or supplements, Denies any signs and symptoms of bleeding, bruising,or clotting. Bleeding, bruising, clotting discussed INR: 2.0 in therapeutic range Dose: continue usual dosing 7.5mg x 1 day and 10mg x 6 days no greens today then balance and be consistent F/U INR: 2 weeks Patient verbalizes understanding of instructions given Coding Level of Care Code Est Patient Level 1 Diagnoses Current use of anticoagulant therapy Z79.01 Time Spent (min) 15 Results AMB INR Fingerstick AMB INR Fingerstick 2.0 Last Edit by Stefani Newman RN on 08/21/24 08:11 interface failure Assessment & Plan Assessment & Plan (1) Current use of anticoagulant therapy: Code(s): Z79.01 - residential (current) 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
== END 2024-08-21 08:42 | disposition home or self-care (01) ==
LOC: HO.ACS 08:00
PROVIDERS: PCP Internal Medicine; Visit Provider Internal Medicine
DX: Z79.01 Long term (current) use of anticoagulants (principal)

== ENCOUNTER → 2024-08-21 08:00 | Outpatient (BNVA) | payer MEDICARE, SELFPAY | PROVIDERS: PCP Internal Medicine; Visit Provider Internal Medicine | DX: Z95.2 Presence of prosthetic heart valve (principal); Z79.01 Long term (current) use of anticoagulants; Z51.81 Encounter for therapeutic drug level monitoring | CPT/HCPCS: 85610; 99211 ==

== ENCOUNTER 2024-09-18 07:58 | Outpatient (AMB) | payer MEDICARE, SELFPAY ==
[2024-09-18 08:07] LABS: Prothrombin Time Whole Bld POC 23.9 sec (11.1-13.5)
--- NOTE | 2024-09-18 08:12 | MHC.OFFVISCO ---
Intake Intake Visit Reasons: Anticoagulation Allergies diphenhydramine [From BENADRYL] Allergy (Intermediate, Verified 09/18/24 08:02) RESTLESS LEGS lisinopril [LISINOPRIL] Allergy (Intermediate, Verified 09/18/24 08:02) DIZZINESS Lisiopril/HCTZ Allergy (Unknown, Uncoded 09/18/24 08:02) dizziness Medication List - Last Reconciled 09/18/24 by Nicole Mercado RN amlodipine 10 mg PO DAILY levothyroxine 150 mcg PO DAILY losartan 25 mg PO DAILY metoprolol succinate ER 50 mg PO DAILY rosuvastatin 40 mg PO DAILY tamsulosin (Flomax) 0.4 mg PO DAILY warfarin 5 mg See Protocol PO DAILY Nursing Note INR: 2.0 in therapeutic range Medications and supplements reviewed No changes in health, diet, medications, or supplements, Denies any signs and symptoms of bleeding or bruising or clotting. Bleeding, bruising, clotting discussed Nutritional guidance given Dose: KEEP SAME 7.5MG X 1 DAY/ 10MG X 6 DAYS F/U INR: 3 WEEKS Patient verbalizes understanding of instructions given Coding Level of Care Code Est Patient Level 1 Diagnoses Current use of anticoagulant therapy Z79.01 Assessment & Plan Assessment & Plan (1) Current use of anticoagulant therapy: Code(s): Z79.01 - intermediate designer (current) 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
--- OUTSIDE RECORDS SUMMARY | 2024-09-20 12:43 | XMS_ITS ---
Author Organization Teto Gary MD Address [address] [place], [place] [id number] Care Team Providers Care Roller Stitcher Name Role Phone Teto Gary Primary Care Provider [phone] ALLERGIES Allergen (clinical drug ingredient) Drug/Non Drug Allergy documented on EMR Reaction Allergy Type Onset Date Status diphenhydramine Benadryl Unknown Drug Allergy A ctive RESULTS Component Value Reference Range Notes Occult Blood, Stool, Guaiac Reviewed date:09/15/2024 02:23:11 PM Interpretation:Negative Performing Lab: Notes/Report: Negative Occult Blood, Stool, Guaiac Neg REASON FOR VISIT ANNUAL EXAM, CBACK HEMATURIA, ? left inguinal hernia the size of a doorknob MEDICATIONS Medication SIG (Take, Route, Frequency, Duration) Notes [...] EMPTY STOMACH Orally Once a day Active SOCIAL HISTORY Tobacco Use: Social History Observation Description Date Details (start date - stop date) Never Smoker NA - NA Sex Assigned At : Social History Observation Description Sex Assigned At Unknown Tobacco Use/Smoking Question Answer Notes Patient is a nonsmoker Additional Findings: Tobacco Non-User Cu rrent non-smoker, currently using no form of tobacco Alcohol Screen Question Answer Notes Did you have a drink containing alcohol in the p ast year? No Points 0 Interpretation Negative VITAL SIGNS BMI 34.79 kg/m2 09/15/2024 Blood pressure systolic 154 mm Hg 09/15/20 24 Blood pressure diastolic 60 mm Hg 024 Height 71.5 in 09/15/2024 Weight 253 lbs 09/15/2024 Encounters Encounter Location Date Provider Diagnosis Teto Gary MD [address] [place] [address] [address] [place], [place] [phone] 09/15/2024 Teto Gary Left inguinal hernia K40.90 ; Annual physical exam Z00.00 ; Mechanical heart valve present Z95.2 ; Essential (primary) hypertension I10 ; Microscopic hematuria R31.29 ; Prostatism N40.0 ; Pure hypercholesterolemia E78.00 ; Acquired hypothyroidism E03.9 ; Colon cancer screening Z12.11 and Depression screening Z13.31 ASSESSMENTS Encounter Date Diagnosis Assessment Notes Treatment Notes Treatment Clinical Notes 09/15/2024 Left inguinal hernia (ICD-10 - [...] N40.0) will continue current regiment 09/15/2024 Pure hypercholestero lemia (ICD-10 - E78.00) stable, will continue current regiment 09/15/2024 Acquired hypothyroid ism (ICD-10 - E03.9) stable, will continue current regiment 09/15/2024 Colon cancer screeni ng (ICD-10 - Z12.11) guaiac negative 09/15/2024 Depression screening (ICD-10 - Z13.31) negative screen PLAN OF TREATMENT Medication Medication Name Sig Start Date Stop [...] screen Next Appt Details Provider Name:Teto kaye, 03/09/2025 07:15:00 AM, [address] [place] [address], [address], [place], [place], [phone], Provider Name:Teto kaye, 03/16/2025 01:30:00 PM, [address] [facility], [address], [place], [place], [phone], Provider Name:Teto Sky mikki, 09/13/2025 07:30:00 AM, [address] [place] [address], [address], [place], [place], [phone], Provider Name:Teto Sky mikki, 09/20/2025 01:00:00 PM, [address] [place] [address], [address], [place], [place], [phone], Progress Notes * Examination Category Sub-Category Detail Notes General Examination GENERAL APPEARANCE: well dev eloped, well nourished, in no acute distress HEAD: normocephalic, atrau matic EYES: pupils equal, round, reactive to light and accommodation, sclera non- icteric EARS: normal THROAT: clear NECK/THYROID: neck supple, [...] stool guaiac negative ORAL CAVITY: mucosa moist History and Physical Notes * HPI (History of Present Illness) Category Sub-Category Detail Notes Depression Screening PHQ-9 Little inte rest or [...] Have you had any falls with injury in the past year?: No Have you had two or more falls in the st year?: No Communication Needs Communication Needs Does the patient have a hearing impairment: No Does the patient have a vision impairmen t?: Yes ?If yes, what is the vision impairment?: Glasses Does the patient have a cognition impair ment?: No
--- OUTSIDE RECORDS SUMMARY | 2024-09-20 12:44 | XMS_ITS ---
Author Organization Teto Gary MD Address [address] [place], [place] [phone] Care Team Providers Care Surgical Asst Name Role Phone Teto Gary Primary Care Provider RESULTS Component Value Reference Range Notes Complete Blood Count Auto Di ff Reviewed date:08/18/2024 12:47:17 PM Interpretation: Performing Lab:[facility], [address] [place] [phone] Notes/Report: White Blood Count 6.2 4.8-10.8 X10*3/uL [...] NRBC Abs Auto 0.000 0.0-0.012 X10*3/uL Comprehensive [place]. Panel Fa st Reviewed date:08/18/2024 01:03:50 PM Interpretation: Performing Lab:[facility], [address] [place] [phone] Notes/Report: Sodium 141 135-145 mmol/L Potassium 3.9 3.3-5.1 mmol/L Chloride 109 96-108 mmol/L Carbon Dioxide 25 22-29 mmol/L Anion Gap 11 12-20 Blood Urea Nitrogen 20 9-16 mg/dL Creatinine 1.31 0.5-1.4 mg/dL Estimated Glomerular Filt Rate 54 NOTE: For -Swiss individuals, multiply the result by 1.210. Chronic [...] Panel Reviewed date:08/18/2024 12:35:19 PM Interpretation: Performing Lab:[address] [phone] Notes/Report: Triglycerides 84 <150 mg/dL Desirable Triglyceride: [...] (Free>4and<10) Reviewed date:08/18/2024 12:34:12 PM Interpretation: Performing Lab:[address] [phone] Notes/Report: PSA,Total (Free>4and<10) 3.01 0.00-4.00 ng/mL A [...] Reviewed date:09/18/2024 10:17:51 AM Interpretation:[place] 09/15 Performing Lab:[address] [place] [phone] Notes/Report: Urine, Clean Catch Color Urine Yellow Appearance Urine Clear PH 6.0 5.0-9.0 Glucose Urine UA Negative Negative mg/dL Urine Blood Large (3+) Negative Specific [place] - Urine 1.015 1.005-1.025 Urine Protein 300 [...] Location Date Provider Diagnosis Teto Gary MD [address] [place] [address] [address] [place], [place] [phone] 08/18/2024 Teto Gary Blood tests for rout ine general physical examination Z00.00 ; Essential (primary) hypertension I10 ; Pure hypercholesterolemia E78.00 ; Chronic kidney disease (CKD) stage G1/A2, glomerular filtration rate (GFR) equal to or greater than 90 mL/min/1.73 square meter and albuminuria creatinine ratio between 30-299 mg/g N18.1 and Prostatism N40.0 ASSESSMENTS Encounter Date Diagnosis Assessment Notes Treatment Notes Treatment Clinical Notes 08/18/[address] ine general physical examination (ICD-10 - Z00.00) 08/18/2024 Essential (primary) hypertension (ICD-10 - I10) 08/18/2024 Pure hypercholestero lemia (ICD-10 - E78.00) 08/18/2024 Chronic kidney disea se (CKD) stage G1/A2, glomerular filtration rate (GFR) equal to or greater than 90 mL/min/1.73 square meter and albuminuria creatinine ratio between 30-299 mg/g (ICD-10 - N18.1) 08/18/2024 Prostatism (ICD-10 - N40.0) PLAN OF TREATMENT Next Appt Details Provider Name:Teto kaye, 03/09/2025 07:15:00 AM, [address] [facility], [address], [place], [place], [phone], Provider Name:Teto kaye, 03/16/2025 01:30:00 PM, [address] [place] [address], [address], [place], [phone], Provider Name:Teto kaye, 09/13/2025 07:30:00 AM, [address] [place] [address], [address], [place], [phone], Provider Name:Teto kaye, 09/20/2025 01:00:00 PM, [address] [place] [address], [address], [place], [phone],
--- OUTSIDE RECORDS SUMMARY | 2024-09-20 12:44 | XMS_ITS | Patient Health Record ---
Author Organization Teto Gary MD Address [address] [place], [place] [id number] Care Team Providers Care Supervisor Housecleaner Name Role Phone Teto Gary Primary Care Provider ALLERGIES Allergen (clinical drug ingredient) Drug/Non Drug Allergy documented on EMR Reaction Allergy Type Onset Date Status diphenhydramine Benadryl Unknown Drug Allergy A ctive RESULTS Component Value Reference Range Notes INR WHOLE BLOOD POC Reviewed date:09/27/2023 12:03:54 PM Interpretation: Performing Lab:[facility], [address] [place] [phone] Notes/Report: PT, INR - [facility] 1.7 0.9-1.1 METER #: [id number] INTERNATIONAL NORMALIZED RATIO (INR) REFERENCE RANGES Reference Range For patients not on anticoagulant therapy: 0.9 - 1.1 INR ranges for oral anticoagulant therapy: For prevention and treatment of venous thrombosis and pulmonary embolism: 2.0 - 3.0 For acute myocardial infarction with aspirin therapy: 2.0 - 3.0 For acute myocardial infarction without aspirin therapy: 3.0 - 4.0 For patients with mechanical prosthetic heart valves: 2.5 - 3.5 Prothrombin Time Whole Bld P OC Reviewed date:09/27/2023 12:04:10 PM Interpretation: Performing Lab:[facility], [address] [place] [phone] Notes/Report: Prothrombin Time Whole Bld POC 20.2 11.1-13.5 sec INR WHOLE BLOOD POC Reviewed date:10/12/2023 02:46:40 PM Interpretation: Performing Lab:[facility], [address] [place] [phone] Notes/Report: PT, INR - [facility] 3.8 0.9-1.1 METER #: [id number] INTERNATIONAL NORMALIZED RATIO (INR) REFERENCE RANGES Reference Range For patients not on anticoagulant therapy: 0.9 - 1.1 INR ranges for oral anticoagulant therapy: For prevention and treatment of venous thrombosis and pulmonary embolism: 2.0 - 3.0 For acute myocardial infarction with aspirin therapy: 2.0 - 3.0 For acute myocardial infarction without aspirin therapy: 3.0 - 4.0 For patients with mechanical prosthetic heart valves: 2.5 - 3.5 Prothrombin Time Whole Bld P OC Reviewed date:10/12/2023 02:50:54 PM Interpretation: Performing Lab:[facility], [address] [place] [phone] Notes/Report: Prothrombin Time Whole Bld POC 46.0 11.1-13.5 sec INR WHOLE BLOOD POC Reviewed date:11/01/2023 12:26:04 PM Interpretation: Performing Lab:[facility], [address] [place] [phone] Notes/Report: PT, INR - [facility] 2.0 0.9-1.1 METER #: [id number] INTERNATIONAL NORMALIZED RATIO (INR) REFERENCE RANGES Reference Range For patients not on anticoagulant therapy: 0.9 - 1.1 INR ranges for oral anticoagulant therapy: For prevention and treatment of venous thrombosis and pulmonary embolism: 2.0 - 3.0 For acute myocardial infarction with aspirin therapy: 2.0 - 3.0 For acute myocardial infarction without aspirin therapy: 3.0 - 4.0 For patients with mechanical prosthetic heart valves: 2.5 - 3.5 Prothrombin Time Whole Bld P OC Reviewed date:11/01/2023 12:25:56 PM Interpretation: Performing Lab:[facility], [address] [place] [phone] Notes/Report: Prothrombin Time Whole Bld POC 24.3 11.1-13.5 sec INR WHOLE BLOOD POC Reviewed date:11/15/2023 12:04:32 PM Interpretation: Performing Lab:[facility], [address] [place] [phone] Notes/Report: PT, INR - [facility] 2.8 0.9-1.1 METER #: [id number] INTERNATIONAL NORMALIZED RATIO (INR) REFERENCE RANGES Reference Range For patients not on anticoagulant therapy: 0.9 - 1.1 INR ranges for oral anticoagulant therapy: For prevention and treatment of venous thrombosis and pulmonary embolism: 2.0 - 3.0 For acute myocardial infarction with aspirin therapy: 2.0 - 3.0 For acute myocardial infarction without aspirin therapy: 3.0 - 4.0 For patients with mechanical prosthetic heart valves: 2.5 - 3.5 Prothrombin Time Whole Bld P OC Reviewed date:11/15/2023 12:09:44 PM Interpretation: Performing Lab:[facility], [address] [place] [phone] Notes/Report: Prothrombin Time Whole Bld POC 33.8 11.1-13.5 sec INR WHOLE BLOOD POC Reviewed date:12/02/2023 12:44:06 PM Interpretation: Performing Lab:[facility], [address] [place] [phone] Notes/Report: PT, INR - [facility] 2.1 0.9-1.1 METER #: [id number] INTERNATIONAL NORMALIZED RATIO (INR) REFERENCE RANGES Reference Range For patients not on anticoagulant therapy: 0.9 - 1.1 INR ranges for oral anticoagulant therapy: For prevention and treatment of venous thrombosis and pulmonary embolism: 2.0 - 3.0 For acute myocardial infarction with aspirin therapy: 2.0 - 3.0 For acute myocardial infarction without aspirin therapy: 3.0 - 4.0 For patients with mechanical prosthetic heart valves: 2.5 - 3.5 Prothrombin Time Whole Bld P OC Reviewed date:12/02/2023 12:53:18 PM Interpretation: Performing Lab:[facility] [address] [phone] Notes/Report: Prothrombin Time Whole Bld POC 24.9 11.1-13.5 sec INR WHOLE BLOOD POC Reviewed date:12/20/2023 10:00:42 AM Interpretation: Performing Lab:[facility], [address] [place] [phone] Notes/Report: PT, INR - [facility] 2.3 0.9-1.1 METER #: [id number] INTERNATIONAL NORMALIZED RATIO (INR) REFERENCE RANGES Reference Range For patients not on anticoagulant therapy: 0.9 - 1.1 INR ranges for oral anticoagulant therapy: For prevention and treatment of venous thrombosis and pulmonary embolism: 2.0 - 3.0 For acute myocardial infarction with aspirin therapy: 2.0 - 3.0 For acute myocardial infarction without aspirin therapy: 3.0 - 4.0 For patients with mechanical prosthetic heart valves: 2.5 - 3.5 Prothrombin Time Whole Bld P OC Reviewed date:12/20/2023 09:58:00 AM Interpretation: Performing Lab:[facility], [address] [place] [phone] Notes/Report: Prothrombin Time Whole Bld POC 28.1 11.1-13.5 sec INR WHOLE BLOOD POC Reviewed date:01/03/2024 12:02:01 PM Interpretation: Performing Lab:[facility], [address] [place] [phone] Notes/Report: PT, INR - [facility] 1.4 0.9-1.1 METER #: [id number] Doctor Notified INTERNATIONAL NORMALIZED RATIO (INR) REFERENCE RANGES Reference Range For patients not on anticoagulant therapy: 0.9 - 1.1 INR ranges for oral anticoagulant therapy: For prevention and treatment of venous thrombosis and pulmonary embolism: 2.0 - 3.0 For acute myocardial infarction with aspirin therapy: 2.0 - 3.0 For acute myocardial infarction without aspirin therapy: 3.0 - 4.0 For patients with mechanical prosthetic heart valves: 2.5 - 3.5 Prothrombin Time Whole Bld P OC Reviewed date:01/03/2024 12:26:38 PM Interpretation: Performing Lab:[facility], [address] [place] [phone] Notes/Report: Prothrombin Time Whole Bld POC 16.5 11.1-13.5 sec INR WHOLE BLOOD POC Reviewed date:01/06/2024 11:46:21 AM Interpretation: Performing Lab:[facility], [address] [place] [phone] Notes/Report: PT, INR - [facility] 2.0 0.9-1.1 METER #: [id number] INTERNATIONAL NORMALIZED RATIO (INR) REFERENCE RANGES Reference Range For patients not on anticoagulant therapy: 0.9 - 1.1 INR ranges for oral anticoagulant therapy: For prevention and treatment of venous thrombosis and pulmonary embolism: 2.0 - 3.0 For acute myocardial infarction with aspirin therapy: 2.0 - 3.0 For acute myocardial infarction without aspirin therapy: 3.0 - 4.0 For patients with mechanical prosthetic heart valves: 2.5 - 3.5 Prothrombin Time Whole Bld P OC Reviewed date:01/06/2024 11:46:05 AM Interpretation: Performing Lab:[facility], [address] [place] [phone] Notes/Report: Prothrombin Time Whole Bld POC 23.7 11.1-13.5 sec INR WHOLE BLOOD POC Reviewed date:01/12/2024 02:16:12 PM Interpretation: Performing Lab:[facility], [address] [place] [phone] Notes/Report: PT, INR - [facility] 3.5 0.9-1.1 METER #: [id number] INTERNATIONAL NORMALIZED RATIO (INR) REFERENCE RANGES Reference Range For patients not on anticoagulant therapy: 0.9 - 1.1 INR ranges for oral anticoagulant therapy: For prevention and treatment of venous thrombosis and pulmonary embolism: 2.0 - 3.0 For acute myocardial infarction with aspirin therapy: 2.0 - 3.0 For acute myocardial infarction without aspirin therapy: 3.0 - 4.0 For patients with mechanical prosthetic heart valves: 2.5 - 3.5 Prothrombin Time Whole Bld P OC Reviewed date:01/12/2024 02:16:23 PM Interpretation: Performing Lab:[facility], [address] [place] [phone] Notes/Report: Prothrombin Time Whole Bld POC 42.5 11.1-13.5 sec INR WHOLE BLOOD POC Reviewed date:01/25/2024 11:09:36 AM Interpretation: Performing Lab:[facility], [address] [place] [phone] Notes/Report: PT, INR - [facility] 3.0 0.9-1.1 METER #: [id number] INTERNATIONAL NORMALIZED RATIO (INR) REFERENCE RANGES Reference Range For patients not on anticoagulant therapy: 0.9 - 1.1 INR ranges for oral anticoagulant therapy: For prevention and treatment of venous thrombosis and pulmonary embolism: 2.0 - 3.0 For acute myocardial infarction with aspirin therapy: 2.0 - 3.0 For acute myocardial infarction without aspirin therapy: 3.0 - 4.0 For patients with mechanical prosthetic heart valves: 2.5 - 3.5 Prothrombin Time Whole Bld P OC Reviewed date:01/25/2024 11:09:43 AM Interpretation: Performing Lab:[facility], [address] [place] [phone] Notes/Report: Prothrombin Time Whole Bld POC 35.7 11.1-13.5 sec INR WHOLE BLOOD POC Reviewed date:02/08/2024 11:18:09 AM Interpretation: Performing Lab:[facility], [address] [place] [phone] Notes/Report: PT, INR - [facility] 3.4 0.9-1.1 METER #: [id number] INTERNATIONAL NORMALIZED RATIO (INR) REFERENCE RANGES Reference Range For patients not on anticoagulant therapy: 0.9 - 1.1 INR ranges for oral anticoagulant therapy: For prevention and treatment of venous thrombosis and pulmonary embolism: 2.0 - 3.0 For acute myocardial infarction with aspirin therapy: 2.0 - 3.0 For acute myocardial infarction without aspirin therapy: 3.0 - 4.0 For patients with mechanical prosthetic heart valves: 2.5 - 3.5 Prothrombin Time Whole Bld P OC Reviewed date:02/08/2024 11:19:49 AM Interpretation: Performing Lab:[facility], [address] [place] [phone] Notes/Report: Prothrombin Time Whole Bld POC 40.4 11.1-13.5 sec Hold Gold Reviewed date:02/18/2024 12:25:34 PM Interpretation: Performing Lab:[facility], [address] [place] [phone] Notes/Report: Hold Gold See Note Specimen held untested for 24 hours; Call to request Chemistry testing. Liver Panel Reviewed date:02/20/2024 06:05:16 PM Interpretation: Performing Lab:[facility], [address] [place] [phone] Notes/Report: Bilirubin Total 0.4 0.0-1.0 mg/dL Bilirubin Direct 0.2 0.0-0.5 mg/dL Aspartate Amino Transferase 18 5-37 U/L Alanine Aminotransferase 15 0-40 U/L Total Protein 7.1 6.5-8.0 g/dL Albumin Level 3.9 3.5-5.0 g/dL Alkaline Phosphatase 75 39-117 U/L Lipid Panel with Reflex Reviewed date:02/20/2024 06:11:31 PM Interpretation: Performing Lab:[facility], [address] [place] [phone] Notes/Report: Triglycerides 61 <150 mg/dL Desirable Triglyceride: less than 150 mg/dL Borderline High Triglyceride 150-199 mg/dL High Triglyceride: 200-499 mg/dL Very High Triglyceride: greater than or equal to 5OO mg/dL Cholesterol 148 <200 mg/dL Desirable Cholesterol: less than 200 mg/dL Borderline High Cholesterol: 200-239 mg/dL High Cholesterol: greater than 239 mg/dL LDL Cholesterol Calculated 77 <100 mg/dL Desirable LDL: less than 100 mg/dL Near Optimal/Above Optimal LDL: 110-129 mg/dL Borderline High LDL: 130-159 mg/dL High LDL: 160-189 mg/dL Very High LDL: greater than or equal to 190 mg/dL HDL Cholesterol 59 >40 mg/dL Desirable HDL: greater than 40 mg/dL Note: This HDL assay may give artificially low results in patients with liver disease. INR WHOLE BLOOD POC Reviewed date:02/22/2024 04:09:09 PM Interpretation: Performing Lab:[facility], [address] [place] [phone] Notes/Report: PT, INR - [facility] 2.4 0.9-1.1 METER #: [id number] INTERNATIONAL NORMALIZED RATIO (INR) REFERENCE RANGES Reference Range For patients not on anticoagulant therapy: 0.9 - 1.1 INR ranges for oral anticoagulant therapy: For prevention and treatment of venous thrombosis and pulmonary embolism: 2.0 - 3.0 For acute myocardial infarction with aspirin therapy: 2.0 - 3.0 For acute myocardial infarction without aspirin therapy: 3.0 - 4.0 For patients with mechanical prosthetic heart valves: 2.5 - 3.5 Prothrombin Time Whole Bld P OC Reviewed date:02/22/2024 04:09:18 PM Interpretation: Performing Lab:[facility], [address] [place] [phone] Notes/Report: Prothrombin Time Whole Bld POC 29.0 11.1-13.5 sec INR WHOLE BLOOD POC Reviewed date:03/07/2024 08:39:49 AM Interpretation: Performing Lab:[facility], [address] [place] [phone] Notes/Report: PT, INR - [facility] 2.9 0.9-1.1 METER #: [id number] INTERNATIONAL NORMALIZED RATIO (INR) REFERENCE RANGES Reference Range For patients not on anticoagulant therapy: 0.9 - 1.1 INR ranges for oral anticoagulant therapy: For prevention and treatment of venous thrombosis and pulmonary embolism: 2.0 - 3.0 For acute myocardial infarction with aspirin therapy: 2.0 - 3.0 For acute myocardial infarction without aspirin therapy: 3.0 - 4.0 For patients with mechanical prosthetic heart valves: 2.5 - 3.5 Prothrombin Time Whole Bld P OC Reviewed date:03/07/2024 09:05:49 AM Interpretation: Performing Lab:[facility], [address] [place] [phone] Notes/Report: Prothrombin Time Whole Bld POC 34.7 11.1-13.5 sec INR WHOLE BLOOD POC Reviewed date:03/20/2024 12:28:11 PM Interpretation: Performing Lab:[address] [phone] Notes/Report: PT, INR - [facility] 1.6 0.9-1.1 METER #: [id number] INTERNATIONAL NORMALIZED RATIO (INR) REFERENCE RANGES Reference Range For patients not on anticoagulant therapy: 0.9 - 1.1 INR ranges for oral anticoagulant therapy: For prevention and treatment of venous thrombosis and pulmonary embolism: 2.0 - 3.0 For acute myocardial infarction with aspirin therapy: 2.0 - 3.0 For acute myocardial infarction without aspirin therapy: 3.0 - 4.0 For patients with mechanical prosthetic heart valves: 2.5 - 3.5 Prothrombin Time Whole Bld P OC Reviewed date:03/20/2024 12:42:31 PM Interpretation: Performing Lab:[facility], [address] [place] [phone] Notes/Report: Prothrombin Time Whole Bld POC 19.8 11.1-13.5 sec INR WHOLE BLOOD POC Reviewed date:03/27/2024 12:30:25 PM Interpretation: Performing Lab:[facility], [address] [place] [phone] Notes/Report: PT, INR - [facility] 2.8 0.9-1.1 METER #: [id number] INTERNATIONAL NORMALIZED RATIO (INR) REFERENCE RANGES Reference Range For patients not on anticoagulant therapy: 0.9 - 1.1 INR ranges for oral anticoagulant therapy: For prevention and treatment of venous thrombosis and pulmonary embolism: 2.0 - 3.0 For acute myocardial infarction with aspirin therapy: 2.0 - 3.0 For acute myocardial infarction without aspirin therapy: 3.0 - 4.0 For patients with mechanical prosthetic heart valves: 2.5 - 3.5 Prothrombin Time Whole Bld P OC Reviewed date:03/27/2024 12:30:36 PM Interpretation: Performing Lab:[facility], [address] [place] [phone] Notes/Report: Prothrombin Time Whole Bld POC 33.3 11.1-13.5 sec INR WHOLE BLOOD POC Reviewed date:04/10/2024 12:14:57 PM Interpretation: Performing Lab:[facility], [address] [place] [phone] Notes/Report: PT, INR - [facility]ag [facility] 2.7 0.9-1.1 METER #: [id number] INTERNATIONAL NORMALIZED RATIO (INR) REFERENCE RANGES Reference Range For patients not on anticoagulant therapy: 0.9 - 1.1 INR ranges for oral anticoagulant therapy: For prevention and treatment of venous thrombosis and pulmonary embolism: 2.0 - 3.0 For acute myocardial infarction with aspirin therapy: 2.0 - 3.0 For acute myocardial infarction without aspirin therapy: 3.0 - 4.0 For patients with mechanical prosthetic heart valves: 2.5 - 3.5 Prothrombin Time Whole Bld P OC Reviewed date:04/10/2024 12:15:04 PM Interpretation: Performing Lab:[facility], [address] [place] [phone] Notes/Report: Prothrombin Time Whole Bld POC 32.4 11.1-13.5 sec INR WHOLE BLOOD POC Reviewed date:05/01/2024 12:32:42 PM Interpretation: Performing Lab:[facility], [address] [place] [phone] Notes/Report: PT, INR - Anti [facility]ag Clinic 2.0 0.9-1.1 METER #: [id number] INTERNATIONAL NORMALIZED RATIO (INR) REFERENCE RANGES Reference Range For patients not on anticoagulant therapy: 0.9 - 1.1 INR ranges for oral anticoagulant therapy: For prevention and treatment of venous thrombosis and pulmonary embolism: 2.0 - 3.0 For acute myocardial infarction with aspirin therapy: 2.0 - 3.0 For acute myocardial infarction without aspirin therapy: 3.0 - 4.0 For patients with mechanical prosthetic heart valves: 2.5 - 3.5 Prothrombin Time Whole Bld P OC Reviewed date:05/01/2024 10:34:31 AM Interpretation: Performing Lab:[facility], [address] [place] [phone] Notes/Report: Prothrombin Time Whole Bld POC 24.5 11.1-13.5 sec INR WHOLE BLOOD POC Reviewed date:05/22/2024 12:40:03 PM Interpretation: Performing Lab:[facility], [address] [place] [phone] Notes/Report: PT, INR - Anti [facility]ag Clinic 2.1 0.9-1.1 METER #: [id number] INTERNATIONAL NORMALIZED RATIO (INR) REFERENCE RANGES Reference Range For patients not on anticoagulant therapy: 0.9 - 1.1 INR ranges for oral anticoagulant therapy: For prevention and treatment of venous thrombosis and pulmonary embolism: 2.0 - 3.0 For acute myocardial infarction with aspirin therapy: 2.0 - 3.0 For acute myocardial infarction without aspirin therapy: 3.0 - 4.0 For patients with mechanical prosthetic heart valves: 2.5 - 3.5 Prothrombin Time Whole Bld P OC Reviewed date:05/22/2024 12:39:55 PM Interpretation: Performing Lab:[facility], [address] [place] [phone] Notes/Report: Prothrombin Time Whole Bld POC 25.0 11.1-13.5 sec INR WHOLE BLOOD POC Reviewed date:06/15/2024 12:12:03 PM Interpretation: Performing Lab:[facility], [address] [place] [phone] Notes/Report: PT, INR - Anti Coag Clinic 3.1 0.9-1.1 METER #: [id number] INTERNATIONAL NORMALIZED RATIO (INR) REFERENCE RANGES Reference Range For patients not on anticoagulant therapy: 0.9 - 1.1 INR ranges for oral anticoagulant therapy: For prevention and treatment of venous thrombosis and pulmonary embolism: 2.0 - 3.0 For acute myocardial infarction with aspirin therapy: 2.0 - 3.0 For acute myocardial infarction without aspirin therapy: 3.0 - 4.0 For patients with mechanical prosthetic heart valves: 2.5 - 3.5 Prothrombin Time Whole Bld P OC Reviewed date:06/15/2024 12:18:03 PM Interpretation: Performing Lab:[facility], [address] [place] [phone] Notes/Report: Prothrombin Time Whole Bld POC 37.5 11.1-13.5 sec INR WHOLE BLOOD POC Reviewed date:07/10/2024 08:22:11 AM Interpretation: Performing Lab:[facility], [address] [place] [phone] Notes/Report: PT, INR - Anti Coag Clinic 2.9 0.9-1.1 METER #: [id number] INTERNATIONAL NORMALIZED RATIO (INR) REFERENCE RANGES Reference Range For patients not on anticoagulant therapy: 0.9 - 1.1 INR ranges for oral anticoagulant therapy: For prevention and treatment of venous thrombosis and pulmonary embolism: 2.0 - 3.0 For acute myocardial infarction with aspirin therapy: 2.0 - 3.0 For acute myocardial infarction without aspirin therapy: 3.0 - 4.0 For patients with mechanical prosthetic heart valves: 2.5 - 3.5 Prothrombin Time Whole Bld P OC Reviewed date:07/10/2024 10:33:10 AM Interpretation: Performing Lab:[address] [phone] Notes/Report: Prothrombin Time Whole Bld POC 34.9 11.1-13.5 sec INR WHOLE BLOOD POC Reviewed date:08/07/2024 12:29:32 PM Interpretation: Performing Lab:[address] [phone] Notes/Report: PT, INR - Anti Coag Clinic 3.4 0.9-1.1 METER #: [id number] INTERNATIONAL NORMALIZED RATIO (INR) REFERENCE RANGES Reference Range For patients not on anticoagulant therapy: 0.9 - 1.1 INR ranges for oral anticoagulant therapy: For prevention and treatment of venous thrombosis and pulmonary embolism: 2.0 - 3.0 For acute myocardial infarction with aspirin therapy: 2.0 - 3.0 For acute myocardial infarction without aspirin therapy: 3.0 - 4.0 For patients with mechanical prosthetic heart valves: 2.5 - 3.5 Prothrombin Time Whole Bld P OC Reviewed date:08/07/2024 12:28:11 PM Interpretation: Performing Lab:[address] [phone] Notes/Report: Prothrombin Time Whole Bld POC 41.1 11.1-13.5 sec Complete Blood Count Auto Di ff Reviewed date:08/18/2024 12:47:17 PM Interpretation: Performing Lab:[address] [phone] Notes/Report: White Blood Count 6.2 4.8-10.8 X10*3/uL [...] NRBC Abs Auto 0.000 0.0-0.012 X10*3/uL Comprehensive [place]. Panel Fa st Reviewed date:08/18/2024 01:03:50 PM Interpretation: Performing Lab:[facility], [address] [place] [phone] Notes/Report: Sodium 141 135-145 mmol/L Potassium 3.9 3.3-5.1 mmol/L Chloride 109 96-108 mmol/L Carbon Dioxide 25 22-29 mmol/L Anion Gap 11 12-20 Blood Urea Nitrogen 20 9-16 mg/dL Creatinine 1.31 0.5-1.4 mg/dL Estimated Glomerular Filt Rate 54 NOTE: For -[place] individuals, multiply the result by 1.210. Chronic [...] Panel Reviewed date:08/18/2024 12:35:19 PM Interpretation: Performing Lab:[facility], [address] [place] [phone] Notes/Report: Triglycerides 84 <150 mg/dL Desirable Triglyceride: [...] (Free>4and<10) Reviewed date:08/18/2024 12:34:12 PM Interpretation: Performing Lab:[facility], [address] [place] [phone] Notes/Report: PSA,Total (Free>4and<10) 3.01 0.00-4.00 ng/mL A [...] Reviewed date:09/18/2024 10:17:51 AM Interpretation:ORQUIDEA 09/15 Performing Lab:[facility], [address] [place] [phone] Notes/Report: Urine, Clean Catch Color Urine Yellow Appearance Urine Clear PH 6.0 5.0-9.0 Glucose Urine UA Negative Negative mg/dL Urine Blood Large (3+) Negative Specific [place] - Urine 1.015 1.005-1.025 Urine Protein 300 (3+) Neg-Trace mg/dL Urine Ketones Negative Negative mg/dL Nitrite Urine Negative Negative Leukocyte Esterase Urine Negative Negative RBC Urine >20 0-2 /HPF WBC Urine 0-5 0-5 /HPF Squamous Epithelial Cell Urine 0-2 0-2 /HPF Bacteria Urine None Seen None Seen Hyaline Casts Urine 0-2 0-2 /LPF INR WHOLE BLOOD POC Reviewed date:08/21/2024 07:00:30 PM Interpretation: Performing Lab:[facility], [address] [place] [phone] Notes/Report: PT, INR - [facility] 2.0 0.9-1.1 METER #: [id number] INTERNATIONAL NORMALIZED RATIO (INR) REFERENCE RANGES Reference Range For patients not on anticoagulant therapy: 0.9 - 1.1 INR ranges for oral anticoagulant therapy: For prevention and treatment of venous thrombosis and pulmonary embolism: 2.0 - 3.0 For acute myocardial infarction with aspirin therapy: 2.0 - 3.0 For acute myocardial infarction without aspirin therapy: 3.0 - 4.0 For patients with mechanical prosthetic heart valves: 2.5 - 3.5 Prothrombin Time Whole Bld P OC Reviewed date:08/21/2024 07:02:24 PM Interpretation: Performing Lab:[facility], [address] [place] [phone] Notes/Report: Prothrombin Time Whole Bld POC 24.1 11.1-13.5 sec Occult Blood, Stool, Guaiac Reviewed date:09/15/2024 02:23:11 PM Interpretation:Negative Performing Lab: Notes/Report: Negative Occult Blood, Stool, Guaiac Neg INR WHOLE BLOOD POC Reviewed date:09/18/2024 12:40:45 PM Interpretation: Performing Lab:[facility], [address] [place] [phone] Notes/Report: PT, INR - Anti Coag Clinic 2.0 0.9-1.1 METER #: [id number] INTERNATIONAL NORMALIZED RATIO (INR) REFERENCE RANGES Reference Range For patients not on anticoagulant therapy: 0.9 - 1.1 INR ranges for oral anticoagulant therapy: For prevention and treatment of venous thrombosis and pulmonary embolism: 2.0 - 3.0 For acute myocardial infarction with aspirin therapy: 2.0 - 3.0 For acute myocardial infarction without aspirin therapy: 3.0 - 4.0 For patients with mechanical prosthetic heart valves: 2.5 - 3.5 Prothrombin Time Whole Bld P OC Reviewed date:09/18/2024 12:44:30 PM Interpretation: Performing Lab:[facility], [address] [place] [phone] Notes/Report: Prothrombin Time Whole Bld POC 23.9 11.1-13.5 sec REASON FOR REFERRAL No Information MEDICATIONS Medication SIG (Take, Route, Frequency, Duration) Notes Start Date End Date Status Sildenafil Citrate 100 MG 1 tablet as ne eded Orally Once a day for 30 day(s) 05/01/2019 Active Metoprolol Succinate ER 50 MG take 1 tablet by mouth daily Orally Once a day Active Losartan Potassium 25 MG 1 tablet Orally Once a day 02/29/2024 Active Tamsulosin HCl 0.4 MG TAKE 1 CAPSULE BY MOUTH EVERY DAY Active amLODIPine Besylate 10 MG TAKE 1 TABLET BY MOUTH EVERY DAY Active Rosuvastatin Calcium 40 MG TAKE 1 TABLET BY MOUTH EVERY DAY Active Warfarin Sodium 5 MG TAKE 2 TABLETS ON WEDNESDAY, WEDNESDAY, WEDNESDAY, TAKE 2.5 TABLETS ON OTHER DAYS ORALLY ONCE A DAY 90 DAYS Active Levothyroxine Sodium 150 MCG TAKE 1 TABL ET BY MOUTH EVERY MORNING ON AN EMPTY STOMACH Orally Once a day Active IMMUNIZATIONS Vaccine Route Administration Date Status Comme nts PPSV23 (Pnemovax) IM Intramuscular 06/18/2020 Administered SARS-COV-2 Pfizer Unknown 04/01/2021 Administered SARS-COV-2 Pfizer Unknown 04/21/2021 Administered SARS-COV-2 Pfizer Unknown 10/24/2021 Administered SARS-COV-2 Pfizer Unknown 07/11/2024 Administered [facility] Flu Vaccine Unknown 01/14/2016 Refused PPSV23 (Pnemovax) Unknown 01/14/2016 Refused Fluarix Quadrivalent Unknown 07/13/2016 Refused Fluarix Quadrivalent Unknown 07/12/2017 Refused Prevnar 13 Unknown 10/21/2017 Refused Fluarix Quadrivalent Unknown 07/05/2018 Refused Fluarix Quadrivalent Unknown 07/18/2019 Refused Fluarix Quadrivalent Unknown 10/24/2020 Refused Influenza High Dose Unknown 06/27/2021 Refused Influenza High Dose Unknown 07/29/2021 Refused Fluarix Quadrivalent Unknown 07/31/2022 Refused Influenza High Dose Unknown 08/12/2023 Refused SOCIAL HISTORY Tobacco Use: Social History Observation [...] ast year? No Points 0 Interpretation Negative PROBLEMS Problem Type ICD Code Onset Dates Problem Status W/U Status Risk SNOMED Code Notes Problem Prostatism (N40.0) Active confirmed 114 32263 Problem Essential (primary) hypertension (I10) Active confirmed 38620290 Problem Erectile dysfunction due to arterial insufficiency (N52.01) Active confirmed 4818023112328 07 Problem Psoriasis (L40.9) Active confirmed 9014 002 Problem Acquired hypothyroidism (E03.9) Active confirmed 563442663 Problem Nonrheumatic aortic valve stenosis (I35.0) Active confirmed 496605870 Problem Alcohol abuse (F10.10) Active confirmed 10349333 Problem Heart murmur (R01.1) Active confirmed 8 1095488 Problem RBBB (I45.10) Active confirmed 52036287 Problem Bilateral carotid artery disease (I77.9) Active confirmed 036820774 Problem Chronic renal failur e, stage 3 (moderate) (N18.3) Active confirmed 10254308 Problem Pure hypercholesterolemia (E78.00) Active confirmed 200037600 Problem Other cardiac arrhythmia (I49.8) Active confirmed 892911800 Problem Mechanical heart mary ve present (Z95.2) Active confirmed 77186826619604 Problem Arthritis of both knees (M17.0) Active confirmed 7040579091762853 Problem Age-related incipien t cataract of both eyes (H25.093) Active confirmed 480861620 Problem Chronic kidney disea se (CKD) stage G1/A2, glomerular filtration rate (GFR) equal to or greater than 90 mL/min/1.73 square meter and albuminuria creatinine ratio between 30-299 mg/g (N18.1) Active confirmed 191399702 VITAL SIGNS Blood pressure diastolic 60 mm Hg 09/15/2024 Height 71.5 in 09/15/2024 Blood pressure systolic 154 mm Hg 09/15/2024 Weight 253 lbs 09/15/2024 BMI 34.79 kg/m2 09/15/2024 Encounters Encounter Location Date Provider Diagnosis Teto Gary MD [address] [place] [id number] 09/15/2024 Teto Gary Left inguinal hernia K40.90 ; Annual physical exam Z00.00 ; Mechanical heart valve present Z95.2 ; Essential (primary) hypertension I10 ; Microscopic hematuria R31.29 ; Prostatism N40.0 ; Pure hypercholesterolemia E78.00 ; Acquired hypothyroidism E03.9 ; Colon cancer screening Z12.11 and Depression screening Z13.31 Teto Gary MD [address] [place] [id number] 02/18/2024 Teto Gary Pure hypercholestero lemia E78.00 Teto Gary MD [address] [place] [address] Drive [address] [place] [id number] 08/18/2024 Teto Gary Blood tests for rout ine general physical examination Z00.00 ; Essential (primary) hypertension I10 ; Pure hypercholesterolemia E78.00 ; Chronic kidney disease (CKD) stage G1/A2, glomerular filtration rate (GFR) equal to or greater than 90 mL/min/1.73 square meter and albuminuria creatinine ratio between 30-299 mg/g N18.1 and Prostatism N40.0 Teto Gary MD [address] [place] [id number] 02/29/2024 Teto Gary Arthritis of both kn ees M17.0 ; Pure hypercholesterolemia E78.00 ; Alcohol abuse F10.10 and Essential (primary) hypertension I10 Teto Gary MD [address] [place] [id number] 01/06/2024 Teto Gary Abdominal wall hemat simba, subsequent encounter S30.1XXD ; Essential (primary) hypertension I10 ; RBBB I45.10 and Chronic kidney disease (CKD) stage G1/A2, glomerular filtration rate (GFR) equal to or greater than 90 mL/min/1.73 square meter and albuminuria creatinine ratio between 30-299 mg/g N18.1 Teto Gary MD [address] [place] [id number] 01/03/2024 [address] [place] [id number] 02/14/2024 Teto Gary MD [address] [place] [id number] 03/07/2024 Teto Gary Essential (primary) hypertension I10 and Mechanical heart valve present Z95.2 Teto Gary MD [address] [place] [id number] 03/09/2024 Teto Gary ASSESSMENTS Encounter Date Diagnosis Assessment Notes Treatment Notes Treatment Clinical Notes 09/15/2024 Annual physical exam (ICD-10 - Z00.00) labs reviewed and discussed with patient 09/15/2024 Left inguinal hernia (ICD-10 - K40.90) have explained what a strangulated hernia is if it occcurs and the need to have it repaired immediately. reducible at [facility] he doesn't want to do anything 02/18/2024 Pure hypercholestero lemia (ICD-10 - E78.00) 08/18/2024 Essential (primary) hypertension (ICD-10 - I10) 08/18/[address] ine general physical examination (ICD-10 - Z00.00) 02/29/2024 Pure hypercholestero lemia (ICD-10 - E78.00) doing well on meds.will continue current regiment 02/29/2024 Arthritis of both kn ees (ICD-10 - M17.0) to try a knee brace 01/06/2024 Essential (primary) hypertension (ICD-10 - I10) doing well 01/06/2024 Abdominal wall hemat simba, subsequent encounter (ICD-10 - S30.1XXD) occured after yard work, Total time spent on the date of the encounter is 35 minutes including both face to face time spent and time spent reviewing documentation, pertinent lab data, studies and counseling the patient. 03/07/2024 Essential (primary) hypertension (ICD-10 - I10) 09/15/2024 Mechanical heart mary ve present (ICD-10 - Z95.2) unable to hear murmer today 08/18/2024 Pure hypercholestero lemia (ICD-10 - E78.00) 02/29/2024 Alcohol abuse (ICD-1 0 - F10.10) doing well at present, will continue to monitor 01/06/2024 RBBB (ICD-10 - I45.10) 03/07/2024 Mechanical heart mary ve present (ICD-10 - Z95.2) 09/15/2024 Essential (primary) hypertension (ICD-10 - I10) adequate control, will contnue current regiment 08/18/2024 Chronic kidney disea se (CKD) stage G1/A2, glomerular filtration rate (GFR) equal to or greater than 90 mL/min/1.73 square meter and albuminuria creatinine ratio between 30-299 mg/g (ICD-10 - N18.1) 02/29/2024 Essential (primary) hypertension (ICD-10 - I10) has been on losartan for years from dr [facility]/ bp has been well controlled, will continue current regiment 01/06/2024 Chronic kidney disea se (CKD) stage G1/A2, glomerular filtration rate (GFR) equal to or greater than 90 mL/min/1.73 square meter and albuminuria creatinine ratio between 30-299 mg/g (ICD-10 - N18.1) has returned to normal 09/15/2024 Microscopic hematuri a (ICD-10 - R31.29) refuses any evaluation 08/18/2024 Prostatism (ICD-10 - N40.0) 09/15/2024 Prostatism (ICD-10 - N40.0) will continue current regiment 09/15/2024 Pure hypercholestero lemia (ICD-10 - E78.00) stable, will continue current regiment 09/15/2024 Acquired hypothyroid ism (ICD-10 - E03.9) stable, will continue current regiment 09/15/2024 Colon cancer screeni ng (ICD-10 - Z12.11) guaiac negative 09/15/2024 Depression screening (ICD-10 - Z13.31) negative screen PLAN OF TREATMENT Pending Test Test Name Order Date Electrocardiogram (EKG) 07/27/2019 ECHO EXAM OF HEART 01/14/2016 XR CHEST 2 VIEW PA & LAT 02/15/2023 US CAROTID BILATERAL DOPPLER 08/04/2021 CT chest wo con 04/27/2022 CT chest wo con 05/28/2022 ECHO 04/22/2020 Future Test Test Name Order Date CT CHEST NO CONTRAST 06/26/2021 Next Appt Details Provider Name:Teto Sky ier, 03/09/2025 07:15:00 AM, [address] [place] [address], Suite [facility], [place], [place], [phone], Provider Name:Teto Sky ier, 03/16/2025 01:30:00 PM, [address] [place] [address], Suite [facility], [place], [place], [phone], Provider Name:Teto Sky ier, 09/13/2025 07:30:00 AM, [address] [place] [address], Suite [facility], [place], [place], [phone], Provider Name:Teto Sky ier, 09/20/2025 01:00:00 PM, [address] [place] [address], Suite [facility], [place], [place], [phone], Insurance Providers Payer Name Payer Address Payer Phone Subscriber Number Group Number Insured Name Patient Relationship to Insured Coverage Start Date Coverage End Date [employer]AGE [address] [place], [place] [id number] MIKI LAVERN Self - patient is the insured MEDICAL (GENERAL) HISTORY Medical History History ICD Code Needs repeat echo in 06/2017; echo done Had Positive Cologuard in - needs Colonoscopy still needs colonoscopy 2022 is waiting to get bills paid still not getting colonoscopy 2023 had hematuia workup with cysto and ct Lung nodule R91.[address] and needs no further f/u hematuria. refuses evaluation 2023
--- OUTSIDE RECORDS SUMMARY | 2024-09-20 12:44 | XMS_ITS ---
Author Organization Teto Gary MD Address [address] [place] [phone] Care Team Providers Care Plaster Molder Name Role Phone Teto Gary Primary Care Provider REASON FOR VISIT refill MEDICATIONS Medication SIG (Take, Route, Frequency, Duration) Notes Start Date End Date Status Levothyroxine Sodium 150 MCG TAKE 1 TABL ET BY MOUTH EVERY MORNING ON AN EMPTY STOMACH Orally Once a day for 90 days Active Encounters Encounter Location Date Provider Diagnosis Teto Gary MD [address] [facility] [address] [place], [place] [phone] 03/09/2024 Teto Gary PLAN OF TREATMENT Medication Medication Name Sig Start Date Stop Date Notes Levothyroxine Sodium 150 MCG TAKE 1 TABL ET BY MOUTH EVERY MORNING ON AN EMPTY STOMACH Orally Once a day for 90 days Next Appt Details Provider Name:Teto kaye, 03/09/2025 07:15:00 AM, [address] [place] [address], [address], [place], [place], [phone], Provider Name:Teto kaye, 03/16/2025 01:30:00 PM, [address] [place] [address], [address], [place], [phone], Provider Name:Teto kaye, 09/13/2025 07:30:00 AM, [address] [place] [address], [address], [place], [phone], Provider Name:Teto kaye, 09/20/2025 01:00:00 PM, [address] [place] [address], [address], [place], [phone],
== END 2024-09-18 08:13 | disposition home or self-care (01) ==
LOC: HO.ACS 07:58
PROVIDERS: PCP Internal Medicine; Visit Provider Internal Medicine
DX: Z79.01 Long term (current) use of anticoagulants (principal)

== ENCOUNTER → 2024-09-18 07:58 | Outpatient (BNVA) | payer MEDICARE, SELFPAY | PROVIDERS: PCP Internal Medicine; Visit Provider Internal Medicine | DX: Z95.2 Presence of prosthetic heart valve (principal); Z79.01 Long term (current) use of anticoagulants; Z51.81 Encounter for therapeutic drug level monitoring | CPT/HCPCS: 85610; 99211 ==

== ENCOUNTER 2024-10-16 08:02 | Outpatient (AMB) | payer MEDICARE, SELFPAY ==
--- OUTSIDE RECORDS SUMMARY | 2024-10-16 08:04 | XMS_ITS ---
Author Organization Teto Gary MD Address [address] [place], [place] [phone] Care Team Providers Care Feed Crusher Operator Name Role Phone Teto Gary Primary Care [...] Location Date Provider Diagnosis Teto Gary MD [address] [place] [address] [address] [place], [place] [phone] 09/15/2024 Teto Gary Left inguinal hernia K40.90 [...] Details Provider Name:Teto kaye, 03/09/2025 07:15:00 AM, [address] [place] [address], [address], [place], [place], [phone], Provider Name:Teto kaye, 03/16/2025 01:30:00 PM, [address] [facility], [address], [place], [place], [phone], Provider Name:Teto Sky mikki, 09/13/2025 07:30:00 AM, [address] [place] [address], [address], [place], [place], [phone], Provider Name:Teto Sky mikki, 09/20/2025 01:00:00 PM, [address] [place] [address], [address], [place], [place], [phone], Progress Notes * Examination Category Sub-Category Detail [...]
--- OUTSIDE RECORDS SUMMARY | 2024-10-16 08:04 | XMS_ITS ---
Author Organization Teto Gary MD Address [address] [place], [place] [phone] Care Team Providers Care Circus Artist Name Role Phone Teto Gary Primary Care Provider RESULTS Component Value Reference Range Notes Complete Blood Count Auto Di ff Reviewed date:08/18/2024 12:47:17 PM Interpretation: Performing Lab:[facility], [address] [place] [phone] Notes/Report: White Blood Count 6.2 4.8-10.8 X10*3/uL [...] NRBC Abs Auto 0.000 0.0-0.012 X10*3/uL Comprehensive [place]. Panel Fa st Reviewed date:08/18/2024 01:03:50 PM Interpretation: Performing Lab:[facility], [address] [place] [phone] Notes/Report: Sodium 141 135-145 mmol/L Potassium 3.9 3.3-5.1 mmol/L Chloride 109 96-108 mmol/L Carbon Dioxide 25 22-29 mmol/L Anion Gap 11 12-20 Blood Urea Nitrogen 20 9-16 mg/dL Creatinine 1.31 0.5-1.4 mg/dL Estimated Glomerular Filt Rate 54 NOTE: For -L[place]uan[place] individuals, multiply the result by 1.210. Chronic [...] Panel Reviewed date:08/18/2024 12:35:19 PM Interpretation: Performing Lab:[address] [phone] Notes/Report: Triglycerides 84 <150 mg/dL Desirable Triglyceride: [...] (Free>4and<10) Reviewed date:08/18/2024 12:34:12 PM Interpretation: Performing Lab:[address] [phone] Notes/Report: PSA,Total (Free>4and<10) 3.01 0.00-4.00 ng/mL A [...] Reviewed date:09/18/2024 10:17:51 AM Interpretation:ORQUIDE[place] 09/15 Performing Lab:[address] [place] [address] Notes/Report: Urine, Clean Catch Color Urine Yellow Appearance Urine Clear PH 6.0 5.0-9.0 Glucose Urine UA Negative Negative mg/dL Urine Blood Large (3+) Negative Specific Bath - Urine 1.015 1.005-1.025 Urine Protein 300 [...] Location Date Provider Diagnosis Teto Gary MD [address] [place] [address] [address] [place], [place] [phone] 08/18/2024 Teto Gary Blood tests for rout [...] Provider Name:Teto kaye, 03/09/2025 07:15:00 AM, [address] [facility], [address], [place], [place], [phone], Provider Name:Teto kaye, 03/16/2025 01:30:00 PM, [address] [place] [address], [address], [place], [phone], Provider Name:Teto kaye, 09/13/2025 07:30:00 AM, [address] [place] [address], [address], [place], [phone], Provider Name:Teto kaye, 09/20/2025 01:00:00 PM, [address] [place] [address], [address], [place], [phone],
--- OUTSIDE RECORDS SUMMARY | 2024-10-16 08:04 | XMS_ITS | Patient Health Record ---
Author Organization Teto Gary MD Address [address] [place], [place] [id number] Care Team Providers Care Engineering Faculty Member Name Role Phone Teto Gary Primary Care Provider ALLERGIES Allergen (clinical drug ingredient) Drug/Non Drug Allergy documented on EMR Reaction Allergy Type Onset Date Status diphenhydramine Benadryl Unknown Drug Allergy A ctive RESULTS Component Value Reference Range Notes INR WHOLE BLOOD POC Reviewed date:11/01/2023 12:26:04 PM Interpretation: Performing Lab:[facility], [address] [place] [phone] Notes/Report: PT, INR - [facility] 2.0 0.9-1.1 METER #: [id number] INTERNATIONAL NORMALIZED RATIO (INR) REFERENCE RANGES Reference [...] OC Reviewed date:11/01/2023 12:25:56 PM Interpretation: Performing Lab:[facility], [address] [place] [phone] Notes/Report: Prothrombin Time Whole Bld POC 24.3 11.1-13.5 sec INR WHOLE BLOOD POC Reviewed date:11/15/2023 12:04:32 PM Interpretation: Performing Lab:[facility], [address] [place] [phone] Notes/Report: PT, INR - [facility] 2.8 0.9-1.1 METER #: [id number] INTERNATIONAL NORMALIZED RATIO (INR) REFERENCE RANGES Reference [...] OC Reviewed date:11/15/2023 12:09:44 PM Interpretation: Performing Lab:[facility], [address] [place] [phone] Notes/Report: Prothrombin Time Whole Bld POC 33.8 11.1-13.5 sec INR WHOLE BLOOD POC Reviewed date:12/02/2023 12:44:06 PM Interpretation: Performing Lab:[facility], [address] [place] [phone] Notes/Report: PT, INR - [facility] 2.1 0.9-1.1 METER #: [id number] INTERNATIONAL NORMALIZED RATIO (INR) REFERENCE RANGES Reference [...] OC Reviewed date:12/02/2023 12:53:18 PM Interpretation: Performing Lab:[facility], [address] [place] [phone] Notes/Report: Prothrombin Time Whole Bld POC 24.9 11.1-13.5 sec INR WHOLE BLOOD POC Reviewed date:12/20/2023 10:00:42 AM Interpretation: Performing Lab:[facility], [address] [place] [phone] Notes/Report: PT, INR - [facility] 2.3 0.9-1.1 METER #: [id number] INTERNATIONAL NORMALIZED RATIO (INR) REFERENCE RANGES Reference [...] OC Reviewed date:12/20/2023 09:58:00 AM Interpretation: Performing Lab:[facility], [address] [place] [phone] Notes/Report: Prothrombin Time Whole Bld POC 28.1 11.1-13.5 sec INR WHOLE BLOOD POC Reviewed date:01/03/2024 12:02:01 PM Interpretation: Performing Lab:[facility], [address] [place] [phone] Notes/Report: PT, INR - [facility] 1.4 0.9-1.1 METER #: [id number] Doctor Notified INTERNATIONAL NORMALIZED RATIO (INR) REFERENCE [...] OC Reviewed date:01/03/2024 12:26:38 PM Interpretation: Performing Lab:[facility], [address] [place] [phone] Notes/Report: Prothrombin Time Whole Bld POC 16.5 11.1-13.5 sec INR WHOLE BLOOD POC Reviewed date:01/06/2024 11:46:21 AM Interpretation: Performing Lab:[facility], [address] [place] [phone] Notes/Report: PT, INR - [facility] 2.0 0.9-1.1 METER #: [id number] INTERNATIONAL NORMALIZED RATIO (INR) REFERENCE RANGES Reference [...] OC Reviewed date:01/06/2024 11:46:05 AM Interpretation: Performing Lab:[facility], [address] [place] [phone] Notes/Report: Prothrombin Time Whole Bld POC 23.7 11.1-13.5 sec INR WHOLE BLOOD POC Reviewed date:01/12/2024 02:16:12 PM Interpretation: Performing Lab:[facility], [address] [place] [phone] Notes/Report: PT, INR - [facility] 3.5 0.9-1.1 METER #: [id number] INTERNATIONAL NORMALIZED RATIO (INR) REFERENCE RANGES Reference [...] OC Reviewed date:01/12/2024 02:16:23 PM Interpretation: Performing Lab:[facility], [address] [place] [phone] Notes/Report: Prothrombin Time Whole Bld POC 42.5 11.1-13.5 sec INR WHOLE BLOOD POC Reviewed date:01/25/2024 11:09:36 AM Interpretation: Performing Lab:[facility], [address] [place] [phone] Notes/Report: PT, INR - [facility] 3.0 0.9-1.1 METER #: [id number] INTERNATIONAL NORMALIZED RATIO (INR) REFERENCE RANGES Reference [...] OC Reviewed date:01/25/2024 11:09:43 AM Interpretation: Performing Lab:[facility], [address] [place] [phone] Notes/Report: Prothrombin Time Whole Bld POC 35.7 11.1-13.5 sec INR WHOLE BLOOD POC Reviewed date:02/08/2024 11:18:09 AM Interpretation: Performing Lab:[facility], [address] [place] [phone] Notes/Report: PT, INR - [facility] 3.4 0.9-1.1 METER #: [id number] INTERNATIONAL NORMALIZED RATIO (INR) REFERENCE RANGES Reference [...] OC Reviewed date:02/08/2024 11:19:49 AM Interpretation: Performing Lab:[facility], [address] [place] [phone] Notes/Report: Prothrombin Time Whole Bld POC 40.4 11.1-13.5 sec Hold Gold Reviewed date:02/18/2024 12:25:34 PM Interpretation: Performing Lab:[facility], [address] [place] [phone] Notes/Report: Eulogio Holm See Note Specimen held untested for 24 hours; Call to request Chemistry testing. Liver Panel Reviewed date:02/20/2024 06:05:16 PM Interpretation: Performing Lab:[facility], [address] [place] [phone] Notes/Report: Bilirubin Total 0.4 0.0-1.0 mg/dL Bilirubin Direct 0.2 0.0-0.5 mg/dL Aspartate Amino Transferase 18 5-37 U/L Alanine Aminotransferase 15 0-40 U/L Total Protein 7.1 6.5-8.0 g/dL Albumin Level 3.9 3.5-5.0 g/dL Alkaline Phosphatase 75 39-117 U/L Lipid Panel with Reflex Reviewed date:02/20/2024 06:11:31 PM Interpretation: Performing Lab:[facility], [address] [place] [phone] Notes/Report: Triglycerides 61 <150 mg/dL Desirable Triglyceride: [...] POC Reviewed date:02/22/2024 04:09:09 PM Interpretation: Performing Lab:[facility], [address] [place] [phone] Notes/Report: PT, INR - [facility] 2.4 0.9-1.1 METER #: [id number] INTERNATIONAL NORMALIZED RATIO (INR) REFERENCE RANGES Reference [...] OC Reviewed date:02/22/2024 04:09:18 PM Interpretation: Performing Lab:[facility], [address] [place] [phone] Notes/Report: Prothrombin Time Whole Bld POC 29.0 11.1-13.5 sec INR WHOLE BLOOD POC Reviewed date:03/07/2024 08:39:49 AM Interpretation: Performing Lab:[facility], [address] [place] [phone] Notes/Report: PT, INR - [facility] 2.9 0.9-1.1 METER #: [id number] INTERNATIONAL NORMALIZED RATIO (INR) REFERENCE RANGES Reference [...] OC Reviewed date:03/07/2024 09:05:49 AM Interpretation: Performing Lab:[facility], [address] [place] [phone] Notes/Report: Prothrombin Time Whole Bld POC 34.7 11.1-13.5 sec INR WHOLE BLOOD POC Reviewed date:03/20/2024 12:28:11 PM Interpretation: Performing Lab:[facility], [address] [place] [phone] Notes/Report: PT, INR - [facility] 1.6 0.9-1.1 METER #: [id number] INTERNATIONAL NORMALIZED RATIO (INR) REFERENCE RANGES Reference [...] OC Reviewed date:03/20/2024 12:42:31 PM Interpretation: Performing Lab:[facility], [address] [place] [phone] Notes/Report: Prothrombin Time Whole Bld POC 19.8 11.1-13.5 sec INR WHOLE BLOOD POC Reviewed date:03/27/2024 12:30:25 PM Interpretation: Performing Lab:[facility], [address] [place] [phone] Notes/Report: PT, INR - [facility] 2.8 0.9-1.1 METER #: [id number] INTERNATIONAL NORMALIZED RATIO (INR) REFERENCE RANGES Reference [...] OC Reviewed date:03/27/2024 12:30:36 PM Interpretation: Performing Lab:[facility], [address] [place] [phone] Notes/Report: Prothrombin Time Whole Bld POC 33.3 11.1-13.5 sec INR WHOLE BLOOD POC Reviewed date:04/10/2024 12:14:57 PM Interpretation: Performing Lab:[address] [phone] Notes/Report: PT, INR - [facility] 2.7 0.9-1.1 METER #: [id number] INTERNATIONAL NORMALIZED RATIO (INR) REFERENCE RANGES Reference [...] OC Reviewed date:04/10/2024 12:15:04 PM Interpretation: Performing Lab:[facility], [address] [place] [phone] Notes/Report: Prothrombin Time Whole Bld POC 32.4 11.1-13.5 sec INR WHOLE BLOOD POC Reviewed date:05/01/2024 12:32:42 PM Interpretation: Performing Lab:[facility], [address] [place] [phone] Notes/Report: PT, INR - [facility] 2.0 0.9-1.1 METER #: [id number] INTERNATIONAL NORMALIZED RATIO (INR) REFERENCE RANGES Reference [...] OC Reviewed date:05/01/2024 10:34:31 AM Interpretation: Performing Lab:[facility], [address] [place] [phone] Notes/Report: Prothrombin Time Whole Bld POC 24.5 11.1-13.5 sec INR WHOLE BLOOD POC Reviewed date:05/22/2024 12:40:03 PM Interpretation: Performing Lab:[facility], [address] [place] [phone] Notes/Report: PT, INR - [facility] 2.1 0.9-1.1 METER #: [id number] INTERNATIONAL NORMALIZED RATIO (INR) REFERENCE RANGES Reference [...] OC Reviewed date:05/22/2024 12:39:55 PM Interpretation: Performing Lab:[facility], [address] [place] [phone] Notes/Report: Prothrombin Time Whole Bld POC 25.0 11.1-13.5 sec INR WHOLE BLOOD POC Reviewed date:06/15/2024 12:12:03 PM Interpretation: Performing Lab:[facility], [address] [place] [phone] Notes/Report: PT, INR - [facility] 3.1 0.9-1.1 METER #: [id number] INTERNATIONAL NORMALIZED RATIO (INR) REFERENCE RANGES Reference [...] OC Reviewed date:06/15/2024 12:18:03 PM Interpretation: Performing Lab:[facility], [address] [place] [phone] Notes/Report: Prothrombin Time Whole Bld POC 37.5 11.1-13.5 sec INR WHOLE BLOOD POC Reviewed date:07/10/2024 08:22:11 AM Interpretation: Performing Lab:[facility], [address] [place] [phone] Notes/Report: PT, INR - [facility] 2.9 0.9-1.1 METER #: [id number] INTERNATIONAL NORMALIZED RATIO (INR) REFERENCE RANGES Reference [...] OC Reviewed date:07/10/2024 10:33:10 AM Interpretation: Performing Lab:[facility], [address] [place] [phone] Notes/Report: Prothrombin Time Whole Bld POC 34.9 11.1-13.5 sec INR WHOLE BLOOD POC Reviewed date:08/07/2024 12:29:32 PM Interpretation: Performing Lab:[facility], [address] [place] [phone] Notes/Report: PT, INR - [facility] 3.4 0.9-1.1 METER #: [id number] INTERNATIONAL NORMALIZED RATIO (INR) REFERENCE RANGES Reference [...] OC Reviewed date:08/07/2024 12:28:11 PM Interpretation: Performing Lab:[facility], [address] [place] [phone] Notes/Report: Prothrombin Time Whole Bld POC 41.1 11.1-13.5 sec Complete Blood Count Auto Di ff Reviewed date:08/18/2024 12:47:17 PM Interpretation: Performing Lab:[facility], [address] [place] [phone] Notes/Report: White Blood Count 6.2 4.8-10.8 X10*3/uL [...] NRBC Abs Auto 0.000 0.0-0.012 X10*3/uL Comprehensive [place]. Panel Fa st Reviewed date:08/18/2024 01:03:50 PM Interpretation: Performing Lab:[facility], [address] [place] [phone] Notes/Report: Sodium 141 135-145 mmol/L Potassium 3.9 3.3-5.1 mmol/L Chloride 109 96-108 mmol/L Carbon Dioxide 25 22-29 mmol/L Anion Gap 11 12-20 Blood Urea Nitrogen 20 9-16 mg/dL Creatinine 1.31 0.5-1.4 mg/dL Estimated Glomerular Filt Rate 54 NOTE: For -[place]guill[place] individuals, multiply the result by 1.210. Chronic [...] Panel Reviewed date:08/18/2024 12:35:19 PM Interpretation: Performing Lab:[address] [phone] Notes/Report: Triglycerides 84 <150 mg/dL Desirable Triglyceride: [...] (Free>4and<10) Reviewed date:08/18/2024 12:34:12 PM Interpretation: Performing Lab:[address] [phone] Notes/Report: PSA,Total (Free>4and<10) 3.01 0.00-4.00 ng/mL A [...] between 4.0 and 10.0 ng/mL. PSA methodology: Ruckusnity i Chemiluminescent Microparticle Immunoassay (CMIA) UA ClnCatch+Micro w/rflx Cul t Reviewed date:09/18/2024 10:17:51 AM Interpretation:[place] 09/15 Performing Lab:[address] [phone] Notes/Report: Urine, Clean Catch Color Urine Yellow Appearance Urine Clear PH 6.0 5.0-9.0 Glucose Urine UA Negative Negative mg/dL Urine Blood Large (3+) Negative Specific [place] - Urine 1.015 1.005-1.025 Urine Protein 300 (3+) Neg-Trace mg/dL Urine Ketones Negative Negative mg/dL Nitrite Urine Negative Negative Leukocyte Esterase Urine Negative Negative RBC Urine >20 0-2 /HPF WBC Urine 0-5 0-5 /HPF Squamous Epithelial Cell Urine 0-2 0-2 /HPF Bacteria Urine None Seen None Seen Hyaline Casts Urine 0-2 0-2 /LPF INR WHOLE BLOOD POC Reviewed date:08/21/2024 07:00:30 PM Interpretation: Performing Lab:[address] [phone] Notes/Report: PT, INR - [facility] 2.0 0.9-1.1 METER #: [id number] INTERNATIONAL NORMALIZED RATIO (INR) REFERENCE RANGES Reference [...] OC Reviewed date:08/21/2024 07:02:24 PM Interpretation: Performing Lab:[facility], [address] [place] [phone] Notes/Report: Prothrombin Time Whole Bld POC 24.1 11.1-13.5 sec Occult Blood, Stool, Guaiac Reviewed date:09/15/2024 02:23:11 PM Interpretation:Negative Performing Lab: Notes/Report: Negative Occult Blood, Stool, Guaiac Neg INR WHOLE BLOOD POC Reviewed date:09/18/2024 12:40:45 PM Interpretation: Performing Lab:[facility], [address] [place] [phone] Notes/Report: PT, INR - [facility] 2.0 0.9-1.1 METER #: [id number] INTERNATIONAL NORMALIZED RATIO (INR) REFERENCE RANGES Reference [...] OC Reviewed date:09/18/2024 12:44:30 PM Interpretation: Performing Lab:[facility], [address] [place] [phone] Notes/Report: Prothrombin Time Whole Bld POC 23.9 [...] Notes Problem Prostatism (N40.0) Active confirmed 114 33047 Problem Essential (primary) hypertension (I10) Active confirmed 05676932 Problem Erectile dysfunction due to arterial insufficiency (N52.01) Active confirmed 7566408501655 07 Problem Psoriasis (L40.9) Active confirmed 9014 002 Problem Acquired hypothyroidism (E03.9) Active confirmed 615613270 Problem Nonrheumatic aortic valve stenosis (I35.0) Active confirmed 445048149 Problem Alcohol abuse (F10.10) Active confirmed 28826058 Problem Heart murmur (R01.1) Active confirmed 8 1856194 Problem RBBB (I45.10) Active confirmed 13355214 Problem Bilateral carotid artery disease (I77.9) Active confirmed 601369496 Problem Chronic renal failur e, stage 3 (moderate) (N18.3) Active confirmed 36676236 Problem Pure hypercholesterolemia (E78.00) Active confirmed 866368910 Problem Other cardiac arrhythmia (I49.8) Active confirmed 750845451 Problem Mechanical heart mary ve present (Z95.2) Active confirmed 55340335587302 Problem Arthritis of both knees (M17.0) Active confirmed 0675885119548379 Problem Age-related incipien t cataract of both eyes (H25.093) Active confirmed 051977133 Problem Chronic kidney disea se (CKD) stage G1/A2, glomerular filtration rate (GFR) equal to or greater than 90 mL/min/1.73 square meter and albuminuria creatinine ratio between 30-299 mg/g (N18.1) Active confirmed 757590627 VITAL SIGNS Blood pressure diastolic 60 mm Hg 09/15/2024 Height 71.5 in 09/15/2024 Blood pressure systolic 154 mm Hg 09/15/2024 Weight 253 lbs 09/15/2024 BMI 34.79 kg/m2 09/15/2024 Encounters Encounter Location Date Provider Diagnosis Teto Gary MD [address] [place] [id number] 09/15/2024 Teto Gary Left inguinal hernia K40.90 ; Annual physical exam Z00.00 ; Mechanical heart valve present Z95.2 ; Essential (primary) hypertension I10 ; Microscopic hematuria R31.29 ; Prostatism N40.0 ; Pure hypercholesterolemia E78.00 ; Acquired hypothyroidism E03.9 ; Colon cancer screening Z12.11 and Depression screening Z13.31 Teto Gary MD [address] [place] [id number] 02/18/2024 Teto Gary Pure hypercholestero lemia E78.00 Teto Gary MD [address] [place] [id number] 08/18/2024 Teto Gary Blood tests for rout ine general physical examination Z00.00 ; Essential (primary) hypertension I10 ; Pure hypercholesterolemia E78.00 ; Chronic kidney disease (CKD) stage G1/A2, glomerular filtration rate (GFR) equal to or greater than 90 mL/min/1.73 square meter and albuminuria creatinine ratio between 30-299 mg/g N18.1 and Prostatism N40.0 Teto Gary MD [address] [place] [id number] 02/29/2024 Teto Gary Arthritis of both kn ees M17.0 ; Pure hypercholesterolemia E78.00 ; Alcohol abuse F10.10 and Essential (primary) hypertension I10 Teto Gary MD [address] [place] [id number] 01/06/2024 Teto Gary Abdominal wall hemat simba, subsequent encounter S30.1XXD ; Essential (primary) hypertension I10 ; RBBB I45.10 and Chronic kidney disease (CKD) stage G1/A2, glomerular filtration rate (GFR) equal to or greater than 90 mL/min/1.73 square meter and albuminuria creatinine ratio between 30-299 mg/g N18.1 Teto Gary MD [address] [place] [id number] 01/03/2024 Teto Gary MD [address] [place] [id number] 02/14/2024 Teto Gary MD [address] [place] [id number] 03/07/2024 Teto Gary Essential (primary) hypertension I10 and Mechanical heart valve present Z95.2 Teto Gary MD [address] [place] [id number] 03/09/2024 Teto Gary ASSESSMENTS Encounter Date Diagnosis Assessment Notes Treatment Notes Treatment Clinical Notes 09/15/2024 Annual physical exam (ICD-10 - Z00.00) labs reviewed and discussed with patient 09/15/2024 Left inguinal hernia (ICD-10 - K40.90) have explained what a strangulated hernia is if it occcurs and the need to have it repaired immediately. reducible at prestn he doesn't want to do anything 02/18/2024 [...] Provider Name:Teto Sky ier, 03/09/2025 07:15:00 AM, [address] [place] [address], Suite [facility], [place], [place], [phone], Provider Name:Teto Sky ier, 03/16/2025 01:30:00 PM, [address] [place] [address], Suite [facility], [place], [place], [phone], Provider Name:Teto Sky ier, 09/13/2025 07:30:00 AM, [address] [place] [address], Suite [facility], [place], [place], [phone], Provider Name:Teto Sky ier, 09/20/2025 01:00:00 PM, [address] [place] [address], Suite [facility], [place], [place], [phone], Insurance Providers Payer Name Payer Address Payer Phone Subscriber Number Group Number Insured Name Patient Relationship to Insured Coverage Start Date Coverage End Date [employer] MED[employer]ARE ADVANTAGE [address] [place] [id number] LAVERN LIVINGSTON Self - patient is the insured MEDICAL [...]
--- OUTSIDE RECORDS SUMMARY | 2024-10-16 08:04 | XMS_ITS ---
Author Organization Teto Gary MD Address [address] [facility] [address] [place] [phone] Care Team Providers Care Warehouse Analyst Name Role Phone Teto Gary Primary Care Provider REASON FOR VISIT refill MEDICATIONS Medication SIG (Take, Route, Frequency, Duration) Notes Start Date End Date Status Levothyroxine Sodium 150 MCG TAKE 1 TABL ET BY MOUTH EVERY MORNING ON AN EMPTY STOMACH Orally Once a day for 90 days Active Encounters Encounter Location Date Provider Diagnosis Teto Gary MD [address] [facility] [address] [place], [place] [phone] 03/09/2024 Teto Gary PLAN OF TREATMENT Medication Medication Name Sig Start Date Stop Date Notes Levothyroxine Sodium 150 MCG TAKE 1 TABL ET BY MOUTH EVERY MORNING ON AN EMPTY STOMACH Orally Once a day for 90 days Next Appt Details Provider Name:Teto kaye, 03/09/2025 07:15:00 AM, [address] [place] [address], [address], [place], [place], [phone], Provider Name:Teto kaye, 03/16/2025 01:30:00 PM, [address] [place] [address], [address], [place], [phone], Provider Name:Teto kaye, 09/13/2025 07:30:00 AM, [address] [place] [address], [address], [place], [phone], Provider Name:Teto kaye, 09/20/2025 01:00:00 PM, [address] [place] [address], [address], [place], [phone],
[2024-10-16 08:10] LABS: Prothrombin Time Whole Bld POC 43.8 sec (11.1-13.5); ~PT, ~INR - Anti Coag Clinic 3.6 (0.9-1.1)
--- NOTE | 2024-10-16 08:13 | MHC.OFFVISCO ---
Intake Intake Visit Reasons: Anticoagulation Allergies diphenhydramine [From BENADRYL] Allergy (Intermediate, Verified 10/16/24 08:05) RESTLESS LEGS lisinopril [LISINOPRIL] Allergy (Intermediate, Verified 10/16/24 08:05) DIZZINESS Lisiopril/HCTZ Allergy (Unknown, Uncoded 10/16/24 08:05) dizziness Medication List - Last Reconciled 10/16/24 by Nicole Mercado RN amlodipine 10 mg PO DAILY levothyroxine 150 mcg PO DAILY losartan 25 mg PO DAILY metoprolol succinate ER 50 mg PO DAILY rosuvastatin 40 mg PO DAILY tamsulosin (Flomax) 0.4 mg PO DAILY warfarin 5 mg See Protocol PO DAILY Nursing Note INR: 3.6 OUT therapeutic range S/P HOLIDAYS- HAS NOT HAD USUAL SPINACH Medications and supplements reviewed No changes in health, diet, medications, or supplements, Denies any signs and symptoms of bleeding or bruising or clotting. Bleeding, bruising, clotting discussed Nutritional guidance given - RESUME YOUR WEEKLY SPINACH Dose: 7.5MG X 1 DAY/ 10MG X 6 DAYS F/U INR: 2 WEEKS Patient verbalizes understanding of instructions given Questionnaires HAS-BLED Does the patient had uncontrolled Hypertension?: No Does the patient have renal disease?: No Does the patient have liver disease?: No Does the patient have a history of stroke?: No Has the patient had major bleeding or predisposition to bleeding?: No (ETOH USE ) Does the patient have labile INRs?: Yes Is the patient over 65 years of age?: Yes Is the patient on medications that gives them a predisposition to bleeding?: Yes Does the patient use alcohol?: Yes HAS-BLED Score: 4 CHADSVASC Age: 66-74 Gender: Male Does the patient have a history of CHF?: No Does the patient have a history of Hypertension?: Yes Does the patient have a history of Stroke/TIA/Thromboembolism?: No Does the patient have a history of Vascular Disease (prior VA, PAD or aortic plaque)?: Yes Does the patient have a history of Diabetes?: No CHADS VACS Score: 3 Jessica Prediction Score Rsk VTE Active Cancer: No Previous VTE, excluding superficial vein thrombosis: No Reduced mobility: No Already known Thrombophilic Condition: No With-in last month Trauma and/or Surgery: No Elderly 70 year or older: Yes Heart and/or Respiratory Failure: No Acute Myocardial infarction and/or Ischemic Stroke: No Acute Infection and/or Rheumatologic Disorder: No Obesity (BMI 30 or greater): No Ongoing Hormonal Treatment: No Score: 1 Jessica Score less than 4; Low Risk of VTE Jessica Score 4 or greater; High Risk of VTE Coding Level of Care Code Est Patient Level 1 Diagnoses Current use of anticoagulant therapy Z79.01 Assessment & Plan Assessment & Plan (1) Current use of anticoagulant therapy: Code(s): Z79.01 - long term (current) 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
== END 2024-10-16 08:15 | disposition home or self-care (01) ==
LOC: HO.ACS 08:02
PROVIDERS: PCP Internal Medicine; Visit Provider Internal Medicine
DX: Z79.01 Long term (current) use of anticoagulants (principal)

== ENCOUNTER → 2024-10-16 08:02 | Outpatient (BNVA) | payer MEDICARE, SELFPAY | PROVIDERS: PCP Internal Medicine; Visit Provider Internal Medicine | DX: Z95.2 Presence of prosthetic heart valve (principal); Z79.01 Long term (current) use of anticoagulants; Z51.81 Encounter for therapeutic drug level monitoring | CPT/HCPCS: 85610; 99211 ==

== ENCOUNTER 2024-11-07 14:34 | Outpatient (AMB) | payer MEDICARE, SELFPAY ==
[2024-11-07 14:48] LABS: Prothrombin Time Whole Bld POC 52.3 sec (11.1-13.5); ~PT, ~INR - Anti Coag Clinic 4.4 (0.9-1.1)
--- NOTE | 2024-11-07 15:07 | MHC.OFFVISCO ---
Intake Intake Visit Reasons: Anticoagulation Allergies diphenhydramine [From BENADRYL] Allergy (Intermediate, Verified 11/07/24 14:44) RESTLESS LEGS lisinopril [LISINOPRIL] Allergy (Intermediate, Verified 11/07/24 14:44) DIZZINESS Lisiopril/HCTZ Allergy (Unknown, Uncoded 11/07/24 14:44) dizziness Medication List - Last Reconciled 11/07/24 by Stefani Kelly, RN amlodipine 10 mg PO DAILY levothyroxine 150 mcg PO DAILY losartan 25 mg PO DAILY metoprolol succinate ER 50 mg PO DAILY rosuvastatin 40 mg PO DAILY tamsulosin (Flomax) 0.4 mg PO DAILY warfarin 5 mg See Protocol PO DAILY Nursing Note Pt to [facility] today. Sceduled to have Inguinal hernia repair on 11/15/24 with a 5 day hold of warfarin. INR: 4.4?out of therapeutic range of 2-3 States he drank alcohol to ease the hernia pain. Explained to pt the increased risk of bleeding with alcohol intake. Medications and supplements reviewed: no changes Diet: appetite good, no changes Denies any signs and symptoms of bleeding or clotting or unusual bruising Bleeding, bruising, clotting discussed Nutritional guidance given: to have a serving of [facility] today T/C to nurse DE JESUS at [facility] trauma clinic to inform her of pt's INR today and reported pt's weight of 250lbs. They will order the Lovenox. Informed her of dosing plan to hold today's dose then decrease dose to 5mg (10mg) on 11/08/24 and 11/09/24. Pt will start the 5 day hold of warfarin on 11/10/24-11/15/24. He understands while holding warfarin, he will start Lovenox on 11/11/24 and take it Bid with last dose in the morning the day before surgery. Post op instruction per [facility] trauma clinic. Pt understands he will take lovenox after surgery until INR therapeutic. He will follow instructions per surgeon as to when to restart Warfarin but when he does, [facility] instructs him to take 15mg the first dose then 10mg until next [facility] appointment. F/U INR Date : 11/20/24 Patient verbalizes understanding of instructions with read back given. Coding Level of Care Code Est Patient Level 2 Diagnoses Current use of anticoagulant therapy Z79.01 Time Spent (min) 30 Comment complex instructions pre op Assessment & Plan Assessment & Plan (1) Current use of anticoagulant therapy: Code(s): Z79.01 - snf (current) 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
--- OUTSIDE RECORDS SUMMARY | 2024-11-07 15:29 | XMS_ITS ---
Author Organization Teto Gary MD Address [address] [place], [place] [phone] Care Team Providers Care Feather Edger Name Role Phone Teto Gary Primary Care Provider Allergies Allergen (clinical [...] Date Provider Diagnosis Teto Gary MD [address] [place] [address] [place] [phone] 09/15/2024 Teto Gary Left inguinal hernia K40.90 [...] screen Next Appt Details Provider Name:Teto kaye, 11/13/2024 11:30:00 AM, [address] [place] [address], [address], [place], [place], [phone], Provider Name:Teto Sky ier, 03/09/2025 07:15:00 AM, [address], [address], [place], [phone], Provider Name:Teto Sky ier, 03/16/2025 01:30:00 PM, [address], [address], [place], [phone], Provider Name:Teto Lizzie Jose Daniel ier, 09/13/2025 07:30:00 AM, [address], [address], [place], [phone], Provider Name:Teto Lizzie Jose Daniel ier, 09/20/2025 01:00:00 PM, 10 [facility], [address], [place], [phone], Progress Notes * LAVERN LIVINGSTON RDOB:1950 (74 yo M)Acc No.[id number]:09/15/2024 Progress Notes Patient:?LAVERN LIVINGSTON Provider:?Teto Gary MD :1950???Age:74 Y???Sex:Male Jacky e:09/15/2024 Address:[address] [place] [address] [facility] Subjective: * Chief Complaints: * ???ANNUAL EXAMCBACK HEMATURI A? left inguinal hernia the size of a doorknob * HPI: ???Depression Screening:?PHQ-9?Little interest or pleasure in doing things?Not at all,?Feeling down, depressed, or hopeless?Not at all,?Trouble falling or staying asleep, or sleeping too much?Not at all,?Feeling tired or having little energy?Not at all,?Poor appetite or overeating?Not at all,?Feeling bad about yourself or that you are a failure, or have let yourself or your family down?Not at all,?Trouble concentrating on things, such as reading the newspaper or watching television?Not at all,?Moving or speaking so slowly that other people could have noticed; or the opposite, being so fidgety or restless that you have been moving around a lot more than usual?Not at all,?Thoughts that you would be better off or of hurting yourself in some way?Not at all,?Total Score?0.?Interpretation and Intervention?Depression Screening Findings?Negative,?Follow-Up for Depression?: review of PHQ-9 found negative result, no follow-up needed.?Communication Needs:?Communication Needs?Does the patient have a hearing impairment?No,?Does the patient have a vision impairment??Yes,?If yes, what is the vision impairment??Glasses,?Does the patient have a cognition impairment??No.?Fall Risk:?History?Have you had any falls with injury in the past year??No,?Have you had two or more falls in the past year??No.?SDOH Questions:?SDOH Questions?In the past year have you been worried about losing housing??No,?In the past year have you or any family members you live with been unable to get any of the following when it was really needed? Check all that apply:?None.?Symptom(s):? patient is a 74 yo male here for annual visit with review of recent labs and follow up of chronic issues, had a coughing spell and all of a sudden had a lump in groin. has blood in urine still and refuses to do anything. * ROS:?General/Constitutional:?Patient denies?fatigue , headache.?Change in appetite?denies.?Chills?denies.?Fever?denies.?Ophthalmologic:?Blurred vision?denies.?Discharge?denies.?Pain?denies.?ENT:?Patient denies?decreased sense of smell , any loss of taste , sore throat.?Decreased hearing?denies.?Sore throat?denies.?Swollen glands?denies.?Endocrine:?Cold intolerance?denies.?Excessive thirst?denies.?Heat intolerance?denies.?Weight loss?denies.?Respiratory:?Cough?denies.?Shortness of breath at rest?denies.?Shortness of breath with exertion?denies.?Wheezing?denies.?Cardiovascular:?Chest pain at rest?denies.?Chest pain with exertion?denies.?Irregular heartbeat?denies.?Shortness of breath?denies.?Gastrointestinal:?Abdominal pain?denies.?Change in bowel habits?denies.?Diarrhea?denies.?Nausea?denies.?Rectal bleeding?denies.?Vomiting?denies .?Genitourinary:?Blood in urine?denies.?Difficulty urinating?denies.?Frequent urination?denies.?Musculoskeletal:?Patient denies?muscle aches.?Patient complaining of?when he walks 100 yards gets pain in rt posterior ribs/ no shortness of breath.?Painful joints?denies.?Weakness?denies.?Peripheral Vascular:?Patient denies?red and blue toes.?Skin:?Dry skin?denies.?Itching?denies.?Denies?Mole(s),? changes in moles, new moles or any lesions of concern.?Denies?Photosensitivity.?Rash?denies.?Neurologic:?Dizziness?denies.?Fainting?denies.?Headache?denies.? * Medical History:? * Surgical History:? * Hospitalization/Major Diagno stic Procedure:? * Family History:?Father: dece ased 51 yrs.?Mother: 78 yrs.?1 daughter(s) . .? Mother-Emphysema Father-[place] 1 brother 1 sister, Denies mental health/substance abuse family history, No pertinent family medical history 1 brother 73 Covid 1 sister lung cancer, No pertinent family medical history. * Social History:?Tobacco Use:?Tobacco Use/Smoking?Patient is a?nonsmoker,?Additional Findings: Tobacco Non-User?Current non-smoker, currently using no form of tobacco.?Drugs/Alcohol:?Alcohol Screen?Did you have a drink containing alcohol in the past year??No,?Points?0,?Interpretation?Negative.?Miscellaneous:?Caffeine: yes, frequency:, 1-2 cups per day. no Exercise. Home smoke detector use: yes. Housing: renting. Living with: alone. Marital status: single. Occupation: weeks/months/years, works part-time. no Travel outside of the [place]. 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 Today starts a new life no more drinking as of 08-04-21 has not had any alcohol x 1 month 08-19-23 patient sttes stopped drinking 2 weeks ago. * Medications:?TakingTamsulosi n HCl 0.4 MG Capsule TAKE 1 CAPSULE [...] reviewed and reconciled with the patient * Allergies:?Benadryl: Allergy yes[Allergies Verified] Objective: * Vitals:?Ht: 71.5, Wt:253, BM I:34.79, BP:154/60, Repeat BP:144/60. * ???Past Orders: ???Lab:Complete Blood Count Auto Diff (Order Date - 08/18/2024) (Collection Date - 08/18/2024) ? Value Reference Range ?White Blood Count 6.2 4. 8-10.8 - X10*3/uL ?Red Blood Count 4.34 L 4.60 -5.80 - X10*6/uL ?Hemoglobin 12.8 L 14.0-18.0 - g/dl ?Hematocrit 39.5 L 42.0-52.0 - % ?Mean Corpuscular Volume 91.0 80.0-98.0 - fL ?Mean Corpuscular Hemoglobin 29.5 27.0-33.0 - pg ?Mean Corpuscular HGB Conc 32.4 31.0-36.0 - g/dl ?Red Cell Distribution Width 14.7 11.0-16.0 - % ?Platelet Count 205 160-4 00 - X10*3/uL ?Mean Platelet Volume 10.5 9.4-12.4 - fL ?Neutrophils Percent Auto 63.9 45-73 - % ?Imm Gran Pct Auto 0.2 0. 0-0.4 - % ?Lymphocytes Percent Auto 22.8 20-40 - % ?Monocytes Percent Auto 10.0 2-11 - % ?Eosinophils Percent Auto 2.9 0-4 - % ?Basophils Percent Auto 0.2 0-2 - % ?NRBC Pct Auto 0.0 0.0-0. 2 - /100WBC ?Neutrophils Absolute Auto 4.0 2.0-8.3 - x10*3/uL ?Imm Gran Abs Auto 0.01 0. 00-0.03 - X10*3/uL ?Lymphocytes Absolute Auto 1.4 1.2-4.9 - X10*3/uL ?Monocytes Absolute Auto 0.6 0.1-1.2 - X10*3/uL ?Eosinophils Absolute Auto 0.2 0.0-0.4 - X10*3/uL ?Basophils Absolute Auto 0.0 0.0-0.2 - X10*3/uL ?NRBC Abs Auto 0.000 0.0-0. 012 - X10*3/uL ???Lab:Comprehensive [place]. P hiwot Fast (Order Date - 08/18/2024) (Collection Date - 08/18/2024) ? Value Reference Range ?Sodium 141 135-145 - mmo l/L ?Bilirubin Total 1.0 0.0- 1.0 - mg/dL ?Aspartate Amino Transferase 28 5-37 - U/L ?Alanine Aminotransferase 18 0-40 - U/L ?Total Protein 7.2 6.5-8. 0 - g/dL ?Albumin Level 4.0 3.5-5. 0 - g/dL ?Alkaline Phosphatase 70 39-117 - U/L ?Potassium 3.9 3.3-5.1 - mmol/L ?Chloride 109 H 96-108 - mm ol/L ?Carbon Dioxide 25 22-29 - mmol/L ?Anion Gap 11 L 12-20 - ?Blood Urea Nitrogen 20 H 9-16 - mg/dL ?Creatinine 1.31 0.5-1.4 - mg/dL ?Estimated Glomerular Filt Rate 54 - ?Glucose Fasting 116 H 60-9 9 - mg/dL ?Calcium 9.6 8.4-10.2 - m g/dL ???Lab:Lipid Panel (Order Da te - 08/18/2024) (Collection Date - 08/18/2024) ? Value Reference Range ?Triglycerides 84 <150 - mg/dL ?Cholesterol 167 <200 - m g/dL ?LDL Cholesterol Calculated 63 <100 - mg/dL ?HDL Cholesterol 88 >40 - mg/dL ???Lab:PSA,Total (Free>4and< 10) (Order Date - 08/18/2024) (Collection Date - 08/18/2024) ? Value Reference Range ?PSA,Total (Free>4and<10) 3.01 0.00-4.00 - ng/mL * Examination: ???General Examination: ?GENERAL APPEARANCE:?well developed, well nourished, in no acute distress.?HEAD:?normocephalic, atraumatic.?EYES:?pupils equal, round, reactive to light and accommodation, sclera non-icteric.?EARS:?normal.?ORAL CAVITY:?mucosa moist.?THROAT:?clear.?NECK/THYROID:?neck supple, full range of motion, no cervical lymphadenopathy, no bruits.?SKIN:?warm and dry, no suspicious lesions in mid back is an old sebaceous cyst.?HEART:?regular rate and rhythm, S1, S2 normal, no murmurs.?LUNGS:?clear to auscultation bilaterally.?ABDOMEN:?soft, nontender, nondistended, bowel sounds present, normal, no organomegaly , no masses palpable.?RECTAL EXAM:?normal tone, no external hemorrhoids, no masses palpable, prostate normal, stool guaiac negative.?MALE GENITOURINARY:?uncircumcised , no penile lesions or discharge , no testicular mass , testes descended bilaterally.?EXTREMITIES:?no clubbing, cyanosis, or edema.?NEUROLOGIC:?nonfocal, motor strength normal upper and lower extremities, sensory exam intact.? Assessment: * Assessment: 1.?Annual physical exam - Z0 0.00 (Primary)?2.?Left inguinal hernia - K40.90?3.?Mechanical heart valve present - Z95.2?4.?Essential (primary) hypertension - I10?5.?Microscopic hematuria - R31.29?6.?Prostatism - N40.0?7.?Pure hypercholesterolemia - E78.00?8.?Acquired hypothyroidism - E03.9?9.?Colon cancer screening - Z12.11?10.?Depression screening - Z13.31? Plan: * Treatment: 2.?Left inguinal hernia? Notes: have explained what a strangulated hernia is if it occcurs and the need to have it repaired immediately. reducible at prestn he doesn't want to do anything?? 3.?Mechanical heart valve pr esent? Continue Warfarin Sodium Tablet, 5 MG, TAKE 2 TABLETS ON WEDNESDAY, WEDNESDAY, WEDNESDAY, TAKE 2.5 TABLETS ON OTHER DAYS ORALLY ONCE A DAY 90 DAYS.?? Notes: unable to hear murmer today?? 4.?Essential (primary) hyper tension? Continue Losartan Potassium Tablet, 25 MG, 1 tablet, Orally, Once a day;?Continue Metoprolol Succinate ER Tablet Extended Release 24 Hour, 50 MG, take 1 tablet by mouth daily, Orally, Once a day;?Continue amLODIPine Besylate Tablet, 10 MG, TAKE 1 TABLET BY MOUTH EVERY DAY.?? Notes: adequate control, will contnue current regiment?? 5.?Microscopic hematuria? Notes: refuses any evaluation?? 6.?Prostatism? Continue Tamsulosin HCl Capsule, 0.4 MG, TAKE 1 CAPSULE BY MOUTH EVERY DAY.?? Notes: will continue current regiment?? 7.?Pure hypercholesterolemia ? Continue Rosuvastatin Calcium Tablet, 40 MG, TAKE 1 TABLET BY MOUTH EVERY DAY.?? Notes: stable, will continue current regiment?? 8.?Acquired hypothyroidism? Continue Levothyroxine Sodium Tablet, 150 MCG, TAKE 1 TABLET BY MOUTH EVERY MORNING ON AN EMPTY STOMACH, Orally, Once a day.?? Notes: stable, will continue current regiment?? 9.?Colon cancer screening?LAB: Occult Blood, Stool, Guaiac?Negative ? Value Reference Range ?Occult Blood, Stool, Guaiac Neg Notes: guaiac negative??10.?Depression screening? Notes: negative screen?? * Procedure Codes:?72825 TEST FOR BLOOD, FECES * Preventive Medicine:? ??Counseling:?Care goal follow-up plan:?Counseling for abnormal BMI provided?Yes,?Above Normal BMI Follow-up?Giving encouragement to exercise.? * * Sign off status: Completed true * Provider:?Teto Gary MD Date:?1 11/16/2023 Generated for Raffaele lara/Aminta/eTciprianosmitting on:?11/07/2024 02:11 PM EST History and Physical Notes * [...]
--- OUTSIDE RECORDS SUMMARY | 2024-11-07 15:29 | XMS_ITS | Clinical Summary ---
Author Organization [facility] Address [address] [facility] [address] [place] [address] Phone Care Team Providers Care Tire Repair Mechanic Name Role Phone Teto Gary MD Primary Care Provider Allergies Active Allergy Reactions Criticality Noted Date Comments Diphenhydramine Other (see comments) 08/22/2021 Medications acetaminophen (TYLENOL) 325 MG tablet Take 2 tablets by mouth if needed Active metoprolol tartrate 25 MG tablet Take 0.5 tablets by mouth 2 (two) times a day Active warfarin (COUMADIN) 10 MG tablet Take 1 tablet by mouth Active amLODIPine (NORVASC) 10 MG tablet Take 10 mg by mouth 1 (one) time each day 1 Active levothyroxine (SYNTHROID, LEVOTHROID) 175 MCG tablet Take 175 mcg by mouth 1 (one) time each day before breakfast TAKE 1 TABLET BY MOUTH EVERY MORNING ON AN EMPTY STOMACH 1 Active rosuvastatin (CRESTOR) 40 MG tablet Take 40 mg by mouth 1 (one) time each day 1 Active tamsulosin (FLOMAX) 0.4 MG 24 hr capsule Take by mouth 1 (one) time each day 1 Active losartan (COZAAR) 25 MG tablet TAKE 1 TABLET(25 MG) BY MOUTH EVERY DAY 30 tablet 2 3 Active losartan (COZAAR) 25 MG tablet TAKE 1 TABLET(25 MG) BY MOUTH EVERY DAY 30 tablet 2 3 Active Active Problems Problem Noted Date Diagnosed Date Hypertension 08/25/2021 Stage 3a chronic kidney disease 08/25/2021 Acute nontraumatic kidney injury 08/22/2021 Family History Medical History Relation Comments Heart disease Father father's side Hypertension Father father's side Kidney disease Mother kidney stones Heart disease Sibling brother Relation Status Comments Father Mother Sibling Social History Tobacco Use Types Packs/Day Years Used Date Smoking Tobacco: Never Smokeless Tobacco: Never Alcohol Use Standard Drinks/Week Comments Never 0 (1 standard drink = 0.6 oz pur e alcohol) Sex and Gender Information Value Date Recorded Sex Assigned at Not on file Legal Sex Male 4:52 PM EST Gender Identity Not on file Sexual Orientation Not on file Last Filed Vital Signs Vital Sign Reading Time Taken Comments Blood Pressure 138/60 11/04/2021 12:19 PM EST Pulse 97 11/04/2021 12:19 PM EST Temperature - - Respiratory Rate - - Oxygen Saturation 99% 11/04/2021 12:19 PM EST Inhaled Oxygen Concentration - - Weight 112 kg (246 lb) 10/30/2021 1:50 PM EST Height - - Body Mass Index - - Plan of Treatment Health Maintenance Due Date Last Done Comments Pneumococcal Vaccine: 65+ Ye ars (1 of 2 - PCV) 1956 Colorectal Cancer Screening: Annual FOBT 1999 Colorectal Cancer Screening: Colonoscopy 1999 Colorectal Cancer Screening: Sigmoidoscopy 1999 Influenza Vaccine (#1) 2024 Hepatitis B Vaccine Aged Out No longe r eligible based on patient's age to complete this topic Insurance [employer] MCR ADV PPO ([id number]) [employer] MCR ADV PPO ([id number]) Care Teams Tire Repair Mechanic Relationship Specialty Start Date End Date Teto Gary MD [address] [place] [address] [id number] [place], [place] PCP - General 10/21/20
--- OUTSIDE RECORDS SUMMARY | 2024-11-07 15:29 | XMS_ITS | Patient Health Record ---
Author Organization Teto Gary MD Address [address] [place], [place] [id number] Care Team Providers Care Radiation Officer Name Role Phone Teto Gary Primary Care Provider Allergies Allergen (clinical drug ingredient) Drug/Non Drug Allergy documented on EMR Reaction Allergy Type Onset Date Status diphenhydramine Benadryl Unknown Drug Allergy A ctive Results Component Value Reference Range Notes Liver Panel Reviewed date:02/20/2024 06:05:16 PM Interpretation: Performing Lab:[address] [phone] Notes/Report: Bilirubin Total 0.4 0.0-1.0 mg/dL Bilirubin Direct 0.2 0.0-0.5 mg/dL Aspartate Amino Transferase 18 5-37 U/L Alanine Aminotransferase 15 0-40 U/L Total Protein 7.1 6.5-8.0 g/dL Albumin Level 3.9 3.5-5.0 g/dL Alkaline Phosphatase 75 39-117 U/L Lipid Panel with Reflex Reviewed date:02/20/2024 06:11:31 PM Interpretation: Performing Lab:[address] [place] [address] Notes/Report: Triglycerides 61 <150 mg/dL Desirable Triglyceride: [...] low results in patients with liver disease. Complete Blood Count Auto Di ff Reviewed date:08/18/2024 12:47:17 PM Interpretation: Performing Lab:[facility], [address] [place] [phone] Notes/Report: White Blood Count 6.2 4.8-10.8 X10*3/uL [...] NRBC Abs Auto 0.000 0.0-0.012 X10*3/uL Comprehensive [place]. Panel Fa st Reviewed date:08/18/2024 01:03:50 PM Interpretation: Performing Lab:[facility], [address] [place] [phone] Notes/Report: Sodium 141 135-145 mmol/L Potassium 3.9 3.3-5.1 mmol/L Chloride 109 96-108 mmol/L Carbon Dioxide 25 22-29 mmol/L Anion Gap 11 12-20 Blood Urea Nitrogen 20 9-16 mg/dL Creatinine 1.31 0.5-1.4 mg/dL Estimated Glomerular Filt Rate 54 NOTE: For -[place] individuals, multiply the result by 1.210. Chronic [...] Panel Reviewed date:08/18/2024 12:35:19 PM Interpretation: Performing Lab:[facility], [address] [place] [phone] Notes/Report: Triglycerides 84 <150 mg/dL Desirable Triglyceride: [...] (Free>4and<10) Reviewed date:08/18/2024 12:34:12 PM Interpretation: Performing Lab:[facility], [address] [place] [phone] Notes/Report: PSA,Total (Free>4and<10) 3.01 0.00-4.00 ng/mL A [...] Reviewed date:09/18/2024 10:17:51 AM Interpretation:[place]IDE[place] 09/15 Performing Lab:[facility], [address] [place] [phone] Notes/Report: Urine, Clean Catch Color Urine Yellow Appearance Urine Clear PH 6.0 5.0-9.0 Glucose Urine UA Negative Negative mg/dL Urine Blood Large (3+) Negative Specific [place] - Urine 1.015 1.005-1.025 Urine Protein 300 (3+) Neg-Trace mg/dL Urine Ketones Negative Negative mg/dL Nitrite Urine Negative Negative Leukocyte Esterase Urine Negative Negative RBC Urine >20 0-2 /HPF WBC Urine 0-5 0-5 /HPF Squamous Epithelial Cell Urine 0-2 0-2 /HPF Bacteria Urine None Seen None Seen Hyaline Casts Urine 0-2 0-2 /LPF Occult Blood, Stool, Guaiac Reviewed date:09/15/2024 02:23:11 PM Interpretation:Negative Performing Lab: Notes/Report: Negative Occult Blood, Stool, Guaiac Neg INR WHOLE BLOOD POC Reviewed date:11/15/2023 12:04:32 PM Interpretation: Performing Lab:[facility], [address] [place] [phone] Notes/Report: PT, INR - [facility] 2.8 0.9-1.1 METER #: [id number] INTERNATIONAL NORMALIZED RATIO (INR) REFERENCE RANGES Reference [...] OC Reviewed date:11/15/2023 12:09:44 PM Interpretation: Performing Lab:[facility], [address] [place] [phone] Notes/Report: Prothrombin Time Whole Bld POC 33.8 11.1-13.5 sec INR WHOLE BLOOD POC Reviewed date:12/02/2023 12:44:06 PM Interpretation: Performing Lab:[facility], [address] [place] [phone] Notes/Report: PT, INR - [facility] 2.1 0.9-1.1 METER #: [id number] INTERNATIONAL NORMALIZED RATIO (INR) REFERENCE RANGES Reference [...] OC Reviewed date:12/02/2023 12:53:18 PM Interpretation: Performing Lab:[facility], [address] [place] [phone] Notes/Report: Prothrombin Time Whole Bld POC 24.9 11.1-13.5 sec INR WHOLE BLOOD POC Reviewed date:12/20/2023 10:00:42 AM Interpretation: Performing Lab:[facility], [address] [place] [phone] Notes/Report: PT, INR - [facility] 2.3 0.9-1.1 METER #: [id number] INTERNATIONAL NORMALIZED RATIO (INR) REFERENCE RANGES Reference [...] OC Reviewed date:12/20/2023 09:58:00 AM Interpretation: Performing Lab:[facility], [address] [place] [phone] Notes/Report: Prothrombin Time Whole Bld POC 28.1 11.1-13.5 sec INR WHOLE BLOOD POC Reviewed date:01/03/2024 12:02:01 PM Interpretation: Performing Lab:[facility], [address] [place] [phone] Notes/Report: PT, INR - [facility] 1.4 0.9-1.1 METER #: [id number] Doctor Notified INTERNATIONAL NORMALIZED RATIO (INR) REFERENCE [...] OC Reviewed date:01/03/2024 12:26:38 PM Interpretation: Performing Lab:[facility], [address] [place] [phone] Notes/Report: Prothrombin Time Whole Bld POC 16.5 11.1-13.5 sec INR WHOLE BLOOD POC Reviewed date:01/06/2024 11:46:21 AM Interpretation: Performing Lab:[facility], [address] [place] [phone] Notes/Report: PT, INR - [facility] 2.0 0.9-1.1 METER #: [id number] INTERNATIONAL NORMALIZED RATIO (INR) REFERENCE RANGES Reference [...] OC Reviewed date:01/06/2024 11:46:05 AM Interpretation: Performing Lab:[facility], [address] [place] [phone] Notes/Report: Prothrombin Time Whole Bld POC 23.7 11.1-13.5 sec INR WHOLE BLOOD POC Reviewed date:01/12/2024 02:16:12 PM Interpretation: Performing Lab:[facility], [address] [place] [phone] Notes/Report: PT, INR - [facility] 3.5 0.9-1.1 METER #: [id number] INTERNATIONAL NORMALIZED RATIO (INR) REFERENCE RANGES Reference [...] OC Reviewed date:01/12/2024 02:16:23 PM Interpretation: Performing Lab:[facility], [address] [place] [phone] Notes/Report: Prothrombin Time Whole Bld POC 42.5 11.1-13.5 sec INR WHOLE BLOOD POC Reviewed date:01/25/2024 11:09:36 AM Interpretation: Performing Lab:[facility], [address] [place] [phone] Notes/Report: PT, INR - [facility] 3.0 0.9-1.1 METER #: [id number] INTERNATIONAL NORMALIZED RATIO (INR) REFERENCE RANGES Reference [...] OC Reviewed date:01/25/2024 11:09:43 AM Interpretation: Performing Lab:[facility], [address] [place] [phone] Notes/Report: Prothrombin Time Whole Bld POC 35.7 11.1-13.5 sec INR WHOLE BLOOD POC Reviewed date:02/08/2024 11:18:09 AM Interpretation: Performing Lab:[facility], [address] [place] [phone] Notes/Report: PT, INR - [facility] 3.4 0.9-1.1 METER #: [id number] INTERNATIONAL NORMALIZED RATIO (INR) REFERENCE RANGES Reference [...] OC Reviewed date:02/08/2024 11:19:49 AM Interpretation: Performing Lab:[facility], [address] [place] [phone] Notes/Report: Prothrombin Time Whole Bld POC 40.4 11.1-13.5 sec Hold Gold Reviewed date:02/18/2024 12:25:34 PM Interpretation: Performing Lab:[facility], [address] [place] [phone] Notes/Report: Eulogio Gold See Note Specimen held untested for 24 hours; Call to request Chemistry testing. INR WHOLE BLOOD POC Reviewed date:02/22/2024 04:09:09 PM Interpretation: Performing Lab:[facility], [address] [place] [phone] Notes/Report: PT, INR - [facility] 2.4 0.9-1.1 METER #: [id number] INTERNATIONAL NORMALIZED RATIO (INR) REFERENCE RANGES Reference [...] OC Reviewed date:02/22/2024 04:09:18 PM Interpretation: Performing Lab:[address] [phone] Notes/Report: Prothrombin Time Whole Bld POC 29.0 11.1-13.5 sec INR WHOLE BLOOD POC Reviewed date:03/07/2024 08:39:49 AM Interpretation: Performing Lab:[facility], [address] [place] [phone] Notes/Report: PT, INR - [facility] 2.9 0.9-1.1 METER #: [id number] INTERNATIONAL NORMALIZED RATIO (INR) REFERENCE RANGES Reference [...] OC Reviewed date:03/07/2024 09:05:49 AM Interpretation: Performing Lab:[facility], [address] [place] [phone] Notes/Report: Prothrombin Time Whole Bld POC 34.7 11.1-13.5 sec INR WHOLE BLOOD POC Reviewed date:03/20/2024 12:28:11 PM Interpretation: Performing Lab:[facility], [address] [place] [phone] Notes/Report: PT, INR - [facility] 1.6 0.9-1.1 METER #: [id number] INTERNATIONAL NORMALIZED RATIO (INR) REFERENCE RANGES Reference [...] OC Reviewed date:03/20/2024 12:42:31 PM Interpretation: Performing Lab:[facility], [address] [place] [phone] Notes/Report: Prothrombin Time Whole Bld POC 19.8 11.1-13.5 sec INR WHOLE BLOOD POC Reviewed date:03/27/2024 12:30:25 PM Interpretation: Performing Lab:[facility], [address] [place] [phone] Notes/Report: PT, INR - [facility] 2.8 0.9-1.1 METER #: [id number] INTERNATIONAL NORMALIZED RATIO (INR) REFERENCE RANGES Reference [...] OC Reviewed date:03/27/2024 12:30:36 PM Interpretation: Performing Lab:[facility], [address] [place] [phone] Notes/Report: Prothrombin Time Whole Bld POC 33.3 11.1-13.5 sec INR WHOLE BLOOD POC Reviewed date:04/10/2024 12:14:57 PM Interpretation: Performing Lab:[facility], [address] [place] [phone] Notes/Report: PT, INR - [facility] 2.7 0.9-1.1 METER #: [id number] INTERNATIONAL NORMALIZED RATIO (INR) REFERENCE RANGES Reference [...] OC Reviewed date:04/10/2024 12:15:04 PM Interpretation: Performing Lab:[facility], [address] [place] [phone] Notes/Report: Prothrombin Time Whole Bld POC 32.4 11.1-13.5 sec INR WHOLE BLOOD POC Reviewed date:05/01/2024 12:32:42 PM Interpretation: Performing Lab:[facility], [address] [place] [phone] Notes/Report: PT, INR - [facility] 2.0 0.9-1.1 METER #: [id number] INTERNATIONAL NORMALIZED RATIO (INR) REFERENCE RANGES Reference [...] OC Reviewed date:05/01/2024 10:34:31 AM Interpretation: Performing Lab:[facility], [address] [place] [phone] Notes/Report: Prothrombin Time Whole Bld POC 24.5 11.1-13.5 sec INR WHOLE BLOOD POC Reviewed date:05/22/2024 12:40:03 PM Interpretation: Performing Lab:[facility], [address] [place] [phone] Notes/Report: PT, INR - [facility] 2.1 0.9-1.1 METER #: [id number] INTERNATIONAL NORMALIZED RATIO (INR) REFERENCE RANGES Reference [...] OC Reviewed date:05/22/2024 12:39:55 PM Interpretation: Performing Lab:[facility], [address] [place] [phone] Notes/Report: Prothrombin Time Whole Bld POC 25.0 11.1-13.5 sec INR WHOLE BLOOD POC Reviewed date:06/15/2024 12:12:03 PM Interpretation: Performing Lab:[facility], [address] [place] [phone] Notes/Report: PT, INR - [facility] 3.1 0.9-1.1 METER #: [id number] INTERNATIONAL NORMALIZED RATIO (INR) REFERENCE RANGES Reference [...] OC Reviewed date:06/15/2024 12:18:03 PM Interpretation: Performing Lab:[address] [phone] Notes/Report: Prothrombin Time Whole Bld POC 37.5 11.1-13.5 sec INR WHOLE BLOOD POC Reviewed date:07/10/2024 08:22:11 AM Interpretation: Performing Lab:[facility], [address] [place] [phone] Notes/Report: PT, INR - [facility] 2.9 0.9-1.1 METER #: [id number] INTERNATIONAL NORMALIZED RATIO (INR) REFERENCE RANGES Reference [...] OC Reviewed date:07/10/2024 10:33:10 AM Interpretation: Performing Lab:[facility], [address] [place] [phone] Notes/Report: Prothrombin Time Whole Bld POC 34.9 11.1-13.5 sec INR WHOLE BLOOD POC Reviewed date:08/07/2024 12:29:32 PM Interpretation: Performing Lab:[facility], [address] [place] [phone] Notes/Report: PT, INR - [facility] 3.4 0.9-1.1 METER #: [id number] INTERNATIONAL NORMALIZED RATIO (INR) REFERENCE RANGES Reference [...] OC Reviewed date:08/07/2024 12:28:11 PM Interpretation: Performing Lab:[facility], [address] [place] [phone] Notes/Report: Prothrombin Time Whole Bld POC 41.1 11.1-13.5 sec INR WHOLE BLOOD POC Reviewed date:08/21/2024 07:00:30 PM Interpretation: Performing Lab:[facility], [address] [place] [phone] Notes/Report: PT, INR - [facility] 2.0 0.9-1.1 METER #: [id number] INTERNATIONAL NORMALIZED RATIO (INR) REFERENCE RANGES Reference [...] OC Reviewed date:08/21/2024 07:02:24 PM Interpretation: Performing Lab:[facility], [address] [place] [phone] Notes/Report: Prothrombin Time Whole Bld POC 24.1 11.1-13.5 sec INR WHOLE BLOOD POC Reviewed date:09/18/2024 12:40:45 PM Interpretation: Performing Lab:[facility], [address] [place] [phone] Notes/Report: PT, INR - [facility] 2.0 0.9-1.1 METER #: [id number] INTERNATIONAL NORMALIZED RATIO (INR) REFERENCE RANGES Reference [...] OC Reviewed date:09/18/2024 12:44:30 PM Interpretation: Performing Lab:[facility], [address] [place] [phone] Notes/Report: Prothrombin Time Whole Bld POC 23.9 11.1-13.5 sec INR WHOLE BLOOD POC Reviewed date:10/16/2024 09:52:45 AM Interpretation: Performing Lab:[facility], [address] [place] [phone] Notes/Report: PT, INR - [facility] 3.6 0.9-1.1 METER #: [id number] INTERNATIONAL NORMALIZED RATIO (INR) REFERENCE RANGES Reference [...] Prothrombin Time Whole Bld P OC Reviewed date:10/16/2024 09:52:53 AM Interpretation: Performing Lab:[facility], [address] [place] [phone] Notes/Report: Prothrombin Time Whole Bld POC 43.8 11.1-13.5 sec Reason For Referral No Information Medications Medication SIG (Take, Route, Frequency, Duration) [...] TAKE 1 CAPSULE BY MOUTH EVERY DAY for 90 Active amLODIPine Besylate 10 MG TAKE 1 [...] EMPTY STOMACH Orally Once a day Active Immunizations Vaccine Route Administration Date Status Comme nts [...] Refused Influenza High Dose Unknown 08/12/2023 Refused Social History Tobacco Use: Social History Observation [...] starts a new life no more drinking Patient states drinks a pint of whiskey everyday. Today starts a new life no more drinking as of 08-04-21 has not had any alcohol x 1 month Patient states drinks a pint of whiskey everyday. Today starts a new life no more drinking as of 08-04-21 has not had any alcohol x 1 month Patient states drinks a pint of whiskey everyday. Today starts a new life no more drinking as of 08-04-21 has not had any alcohol x 1 month 08-19-23 patient sttes stopped drinking 2 weeks ago. Patient states drinks a pint of whiskey everyday. Today starts a new life no more drinking as of 08-04-21 has not had any alcohol x 1 month 08-19-23 patient sttes stopped drinking 2 weeks ago. 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) Active confirmed Problem 48118577 Alcohol abuse (F10.10) Active confirme d Problem 14453705 Heart murmur (R01.1) Active confirmed Problem 81877439 RBBB (I45.10) Active confirmed Problem 172347195 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) Active confirmed Problem 45869208 Chronic renal fa ilure, stage 3 (moderate) (N18.3) Active confirmed Problem 479944176 Pure hypercholesterolemia (E78.00) Active confirmed Problem 283323736 Other cardiac arrhythmia (I49.8) Active confirmed Problem 01090238967545 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) Active confirmed Problem 5177630790117346 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) Active confirmed Problem 712544704 Age-related inci pient cataract of both eyes (H25.093) Active confirmed Problem 975744166 Chronic kidney d isease (CKD) stage G1/A2, glomerular filtration rate (GFR) equal to or greater than 90 mL/min/1.73 square meter and albuminuria creatinine ratio between 30-299 mg/g (N18.1) Active confirmed Vital Signs Blood pressure diastolic 60 mm Hg 09/15/2024 Height 71.5 in 09/15/2024 Blood pressure systolic 154 mm Hg 09/15/2024 Weight 253 lbs 09/15/2024 BMI 34.79 kg/m2 09/15/2024 Encounters Encounter Location Date Provider Diagnosis Teto Gary MD [address] [place] [id number] 02/18/2024 Teto Gary Pure hypercholestero lemia E78.00 Teto Gary MD [address] [place] [id number] 08/18/2024 Teto Gary Blood tests for rout ine general physical examination Z00.00 ; Essential (primary) hypertension I10 ; Pure hypercholesterolemia E78.00 ; Chronic kidney disease (CKD) stage G1/A2, glomerular filtration rate (GFR) equal to or greater than 90 mL/min/1.73 square meter and albuminuria creatinine ratio between 30-299 mg/g N18.1 and Prostatism N40.0 Teto Gary MD [address] [place] [id number] 01/06/2024 Teto Gary Abdominal wall hemat simba, subsequent encounter S30.1XXD ; Essential (primary) hypertension I10 ; RBBB I45.10 and Chronic kidney disease (CKD) stage G1/A2, glomerular filtration rate (GFR) equal to or greater than 90 mL/min/1.73 square meter and albuminuria creatinine ratio between 30-299 mg/g N18.1 Teto Gary MD [address] [place] [id number] 02/29/2024 Teto Gary Arthritis of both kn ees M17.0 ; Pure hypercholesterolemia E78.00 ; Alcohol abuse F10.10 and Essential (primary) hypertension I10 Teto Gary MD [address] [place] [id number] 09/15/2024 Teto Gary Left inguinal hernia K40.90 ; Annual physical exam Z00.00 ; Mechanical heart valve present Z95.2 ; Essential (primary) hypertension I10 ; Microscopic hematuria R31.29 ; Prostatism N40.0 ; Pure hypercholesterolemia E78.00 ; Acquired hypothyroidism E03.9 ; Colon cancer screening Z12.11 and Depression screening Z13.31 Teto Gary MD [address] [place] [id number] 01/03/2024 Teto Gary MD [address] [place] [address] [id number] 02/14/2024 Teto Gary MD [address] [place] [id number] 03/07/2024 Teto Gary Essential (primary) hypertension I10 and Mechanical heart valve present Z95.2 Teto Gary MD [address] [place] [id number] 03/09/2024 Teto Gary MD [address] [place] [id number] 10/27/2024 Teto Gary Assessments Encounter Date Diagnosis (ICD Code) Assessment Notes Treatment Notes Treatment Clinical Notes Section Notes 02/18/2024 Pure hypercholesterolemia (ICD-10 - E78.00) 08/18/[address] ine general physical examination (ICD-10 - Z00.00) 08/18/2024 Essential (primary) hypertension (ICD-10 - I10) 01/06/2024 Abdominal wall hematoma, subsequent encounter (ICD-10 - S30.1XXD) occured after yard work, Total time spent on the date of the encounter is 35 minutes including both face to face time spent and time spent reviewing documentation, pertinent lab data, studies and counseling the patient. 01/06/2024 Essential (primary) hypertension (ICD-10 - I10) doing well 02/29/2024 Arthritis of both kn ees (ICD-10 - M17.0) to try a knee brace 02/29/2024 Pure hypercholesterolemia (ICD-10 - E78.00) doing well on meds.will continue current regiment 09/15/2024 Left inguinal hernia (ICD-10 - K40.90) have explained what a strangulated hernia is if it occcurs and the need to have it repaired immediately. reducible at prestn he doesn't want to do anything 09/15/2024 Annual physical exam (ICD-10 - Z00.00) labs reviewed and discussed with patient 03/07/2024 Essential (primary) hypertension (ICD-10 - I10) 08/18/2024 Pure hypercholesterolemia (ICD-10 - E78.00) 01/06/2024 RBBB (ICD-10 - I45.10) 02/29/2024 Alcohol abuse (ICD-1 0 - F10.10) doing well at present, will continue to monitor 09/15/2024 Mechanical heart mary ve present (ICD-10 - Z95.2) unable to hear murmer today 03/07/2024 Mechanical heart mary ve present (ICD-10 - Z95.2) 08/18/2024 Chronic kidney disea se (CKD) stage G1/A2, glomerular filtration rate (GFR) equal to or greater than 90 mL/min/1.73 square meter and albuminuria creatinine ratio between 30-299 mg/g (ICD-10 - N18.1) 01/06/2024 Chronic kidney disea se (CKD) stage G1/A2, glomerular filtration rate (GFR) equal to or greater than 90 mL/min/1.73 square meter and albuminuria creatinine ratio between 30-299 mg/g (ICD-10 - N18.1) has returned to normal 02/29/2024 Essential (primary) hypertension (ICD-10 - I10) has been on losartan for years from [facility]/ bp has been well controlled, will continue current regiment 09/15/2024 Essential (primary) hypertension (ICD-10 - I10) adequate control, will contnue current regiment 08/18/2024 Prostatism (ICD-10 - N40.0) 09/15/2024 Microscopic hematuri a (ICD-10 - R31.29) refuses any evaluation 09/15/2024 Prostatism (ICD-10 - N40.0) will continue current regiment 09/15/2024 Pure hypercholesterolemia (ICD-10 - E78.00) stable, will continue current regiment 09/15/2024 Acquired hypothyroid ism (ICD-10 - E03.9) stable, will continue current regiment 09/15/2024 Colon cancer screeni ng (ICD-10 - Z12.11) guaiac negative 09/15/2024 Depression screening (ICD-10 - Z13.31) negative screen Plan Of Treatment Pending Test Test Name Order Date Electrocardiogram (EKG) 07/27/2019 ECHO EXAM OF HEART 01/14/2016 XR CHEST 2 VIEW PA & LAT 02/15/2023 US CAROTID BILATERAL DOPPLER 08/04/2021 CT chest wo con 04/27/2022 CT chest wo con 05/28/2022 ECHO 04/22/2020 Future Test Test Name Order Date CT CHEST NO CONTRAST 06/26/2021 Next Appt Details Provider Name:Teto kaye, 11/13/2024 11:30:00 AM, [address] [place] [address], [address] [place] [address], [phone], Provider Name:Teto kaye, 03/09/2025 07:15:00 AM, [address] [place] [address], [address], [place], [place], [phone], Provider Name:Teto kaye, 03/16/2025 01:30:00 PM, [address] [place] [address], [address], [place], [place], [phone], Provider Name:Teto kaye, 09/13/2025 07:30:00 AM, [address], [address], [place], [place], [phone], Provider Name:Teto pastorr, 09/20/2025 01:00:00 PM, [address], [address], [place], [phone], Insurance Providers Payer Name Payer Address Payer Phone Subscriber Number Group Number Insured Name Patient Relationship to Insured Coverage Start Date Coverage End Date [employer]AGE [address] [place] [id number] [employer] [place] Self - patient is the insured Medical (General) History Medical History History ICD Code Needs repeat [...]
--- OUTSIDE RECORDS SUMMARY | 2024-11-07 15:29 | XMS_ITS ---
Author Organization Teto Gary MD Address [address] [place], [place] [phone] Care Team Providers Care Extermination Inspector Name Role Phone Teto Gary Primary Care Provider Results Component Value Reference Range Notes Complete Blood Count Auto Di ff Reviewed date:08/18/2024 12:47:17 PM Interpretation: Performing Lab:[facility], [address] [place] [phone] Notes/Report: White Blood Count 6.2 4.8-10.8 X10*3/uL [...] NRBC Abs Auto 0.000 0.0-0.012 X10*3/uL Comprehensive [place]. Panel Fa st Reviewed date:08/18/2024 01:03:50 PM Interpretation: Performing Lab:[facility], [address] [place] [phone] Notes/Report: Sodium 141 135-145 mmol/L Potassium 3.9 3.3-5.1 mmol/L Chloride 109 96-108 mmol/L Carbon Dioxide 25 22-29 mmol/L Anion Gap 11 12-20 Blood Urea Nitrogen 20 9-16 mg/dL Creatinine 1.31 0.5-1.4 mg/dL Estimated Glomerular Filt Rate 54 NOTE: For -Ecuadorean individuals, multiply the result by 1.210. Chronic [...] Panel Reviewed date:08/18/2024 12:35:19 PM Interpretation: Performing Lab:[address] [phone] Notes/Report: Triglycerides 84 <150 mg/dL Desirable Triglyceride: [...] (Free>4and<10) Reviewed date:08/18/2024 12:34:12 PM Interpretation: Performing Lab:[address] [phone] Notes/Report: PSA,Total (Free>4and<10) 3.01 0.00-4.00 ng/mL A [...] Reviewed date:09/18/2024 10:17:51 AM Interpretation:[place] 09/15 Performing Lab:[address] [place] [phone] Notes/Report: Urine, Clean Catch Color Urine Yellow Appearance Urine Clear PH 6.0 5.0-9.0 Glucose Urine UA Negative Negative mg/dL Urine Blood Large (3+) Negative Specific [place] - Urine 1.015 1.005-1.025 Urine Protein 300 [...] Location Date Provider Diagnosis Teto Gary MD [address] [place] [address] [place] [phone] 08/18/2024 Teto Gary Blood tests for rout [...] Treatment Next Appt Details Provider Name:Teto kaye, 11/13/2024 11:30:00 AM, [address] [place] [address], [address], [place], [place], [phone], Provider Name:Teto kaye, 03/09/2025 07:15:00 AM, [address], [address], [place], [phone], Provider Name:Teto Sky ier, 03/16/2025 01:30:00 PM, [address], [address], [place], [phone], Provider Name:Teto Sky ier, 09/13/2025 07:30:00 AM, [address], [address], [place], [phone], Provider Name:Teto Sky ier, 09/20/2025 01:00:00 PM, [address], [address], [place], [phone], Progress Notes * LAVERN LIVINGSTON RDOB:1950 (74 yo M)Acc No.[id number]:08/18/2024 Progress Note Patient:?LAVERN LIVINGSTON Provider:?Teto Gary MD :1950???Age:73 Y???Sex:Male Jacky e:08/18/2024 Address:[address] [place], [place] [phone] Subjective: * Chief Complaints: * ???1. FASTING LABS. * Medical History:? Objective: * Vitals:? Assessment: * Assessment: 1.?Blood tests for routine g eneral physical examination - Z00.00 (Primary)???2.?Essential (primary) hypertension - I10???3.?Pure hypercholesterolemia - E78.00???4.?Chronic kidney disease (CKD) stage G1/A2, glomerular filtration rate (GFR) equal to or greater than 90 mL/min/1.73 square meter and albuminuria creatinine ratio between 30-299 mg/g - N18.1???5.?Prostatism - N40.0??? Plan: * Treatment: 2.?Essential (primary) hypertension?LAB: Complete Blood Count Auto Diff (Collection Date & Time - 08/18/2024 08:00 AM) ?LAB: Comprehensive [place]. Panel Fast (Collection Date & Time - 08/18/2024 08:00 AM) ?LAB: Lipid Panel (Collection Date & Time - 08/18/2024 08:00 AM) ?LAB: PSA,Total (Free>4and<10) (Collection Date & Time - 08/18/2024 08:00 AM) ?LAB: UA ClnCatch+Micro w/rflx Cult (Collection Date & Time - 08/18/2024 08:00 AM)* Carmella Mcneillti Alvin 10:17:35 AM EST > LAVERN KEPT HIS EXAM APPT 3.?Pure hypercholesterolemia?LAB: Complete Blood Count Auto Diff (Collection Date & Time - 08/18/2024 08:00 AM) ?LAB: Comprehensive [place]. Panel Fast (Collection Date & Time - 08/18/2024 08:00 AM) ?LAB: Lipid Panel (Collection Date & Time - 08/18/2024 08:00 AM) ?LAB: PSA,Total (Free>4and<10) (Collection Date & Time - 08/18/2024 08:00 AM) ?LAB: UA ClnCatch+Micro w/rflx Cult (Collection Date & Time - 08/18/2024 08:00 AM)* Carmella Mcneillti Alvin 024 10:17:35 AM EST > LAVERN KEPT HIS EXAM APPT 4.?Chronic kidney disease (CKD) stage G1/A2, glomerular filtration rate (GFR) equal to or greater than 90 mL/min/1.73 square meter and albuminuria creatinine ratio between 30-299 mg/g?LAB: Complete Blood Count Auto Diff (Collection Date & Time - 08/18/2024 08:00 AM) ?LAB: Comprehensive [place]. Panel Fast (Collection Date & Time - 08/18/2024 08:00 AM) ?LAB: Lipid Panel (Collection Date & Time - 08/18/2024 08:00 AM) ?LAB: PSA,Total (Free>4and<10) (Collection Date & Time - 08/18/2024 08:00 AM) ?LAB: UA ClnCatch+Micro w/rflx Cult (Collection Date & Time - 08/18/2024 08:00 AM)* Olga Mcneill Alvin 10:17:35 AM EST > LAVERN KEPT HIS EXAM APPT 5.?Prostatism?LAB: Complete Blood Count Auto Diff (Collection Date & Time - 08/18/2024 08:00 AM) ?LAB: Comprehensive [place]. Panel Fast (Collection Date & Time - 08/18/2024 08:00 AM) ?LAB: Lipid Panel (Collection Date & Time - 08/18/2024 08:00 AM) ?LAB: PSA,Total (Free>4and<10) (Collection Date & Time - 08/18/2024 08:00 AM) ?LAB: UA ClnCatch+Micro w/rflx Cult (Collection Date & Time - 08/18/2024 08:00 AM)* Carmella Mcneilljose manuel Esquivel 10:17:35 AM EST > LAVERN KEPT HIS EXAM APPT * Procedure Codes:?59239 VENIP UNCT, ROUTINE* * * The named appointment provid er may or may not be the originator of this progress note, and it is not deemed complete until electronically signed by the appointment provider. Sign off status: Pending * Provider:?Teto Gary MD Date:?1 10/18/2023 Generated for Raffaele lara/Aminta/Nickitting on:?11/07/2024 02:11 PM EST
--- OUTSIDE RECORDS SUMMARY | 2024-11-07 15:29 | XMS_ITS ---
Author Organization Teto Gary MD Address [address] [place], [place] [phone] Care Team Providers Care Architectural Project Captain Name Role Phone Cookie Teto Primary Care Provider REASON FOR VISIT ER Visit rec'd Encounters Encounter Location Date Provider Diagnosis Teto Gary MD [address] [facility] [address] [place] [phone] 10/27/2024 Teto Gary Plan Of Treatment Next Appt Details Provider Name:Teto Sky ier, 11/13/2024 11:30:00 AM, [address] [place] [address], Suite [facility], [place], [place], [phone], Provider Name:Teto kaye, 03/09/2025 07:15:00 AM, [address] [place] [address], [place] [address], [place], [place], [phone], Provider Name:Teto kaye, 03/16/2025 01:30:00 PM, [address] [place] [address], [place] [address], [place], [place], [phone], Provider Name:Teto pastorr, 09/13/2025 07:30:00 AM, [address], [address], [place], [phone], Provider Name:Teto Sky ier, 09/20/2025 01:00:00 PM, [address], [address], [place], [phone], Progress Notes * LAVERN LIVINGSTON RDOB:1950 (74 yo M)Acc No.[id number]:10/27/2024 Patient:?LAVERN LIVINGSTON :1950???Age:74 Y???Sex:Male Address:[address] [place] [address] [place], [address] * true * Date:? Generated for Raffaele lara/Aminta/Mohsensmitting on:?11/07/2024 02:11 PM EST
== END 2024-11-07 15:32 | disposition home or self-care (01) ==
LOC: HO.ACS 14:34
PROVIDERS: PCP Internal Medicine; Visit Provider Internal Medicine
DX: Z79.01 Long term (current) use of anticoagulants (principal)

== ENCOUNTER → 2024-11-07 14:34 | Outpatient (BNVA) | payer MEDICARE, SELFPAY | PROVIDERS: PCP Internal Medicine; Visit Provider Internal Medicine | DX: Z95.2 Presence of prosthetic heart valve (principal); Z79.01 Long term (current) use of anticoagulants; Z51.81 Encounter for therapeutic drug level monitoring | CPT/HCPCS: 85610; 99212 ==

== ENCOUNTER → 2024-11-16 16:12 | Outpatient (BNVA) | payer MEDICARE, SELFPAY | PROVIDERS: PCP Internal Medicine; Visit Provider Internal Medicine ==

== ENCOUNTER 2024-11-22 08:03 | Outpatient (AMB) | payer MEDICARE, SELFPAY ==
--- OUTSIDE RECORDS SUMMARY | 2024-11-22 08:04 | XMS_ITS | Clinical Summary ---
Author Organization [facility] Address [address] [facility] [address] [place] [address] Phone Care Team Providers Care Hand Riveter Name Role Phone Teto Gary MD Primary Care Provider [phone] Allergies Active Allergy Reactions Criticality Noted Date [...] this topic Insurance [employer] MCR ADV PPO ([id number]) AETNA MCR ADV PPO ([id number]) Care Teams Hand Riveter Relationship Specialty Start Date End Date Teto Gary MD [address] [place] [address] [address] [place], [place] PCP - General 10/21/20
--- OUTSIDE RECORDS SUMMARY | 2024-11-22 08:04 | XMS_ITS ---
Author Organization Teto Gary MD Address [address] [place], [place] [phone] Care Team Providers Care Hairmasters Manager Name Role Phone Teto Gary Primary Care Provider [phone] Allergies Allergen (clinical drug ingredient) Drug/Non Drug [...] Location Date Provider Diagnosis Teto Gary MD [address] [place] [address] [place] [id number] 09/15/2024 Teto Gary Left inguinal hernia K40.90 [...] Details Provider Name:Teto kaye, 03/09/2025 07:15:00 AM, [address] [place] [address], [address], [place], [place], [phone], Provider Name:Teto Sky ier, 03/16/2025 01:30:00 PM, [address], [address], [place], [phone], Provider Name:Teto Sky ier, 09/13/2025 07:30:00 AM, [address] [facility], [address], [place], [phone], Provider Name:Teto Sky ier, 09/20/2025 01:00:00 PM, [address], [address], [place], [phone], Progress Notes * LAVERN LIVINGSTON RDOB:1950 (74 yo M)Acc No.[id number]:09/15/2024 Progress Notes Patient:?LAVERN LIVINGSTON Provider:?Teto Gary MD :1950???Age:74 Y???Sex:Male Jacky e:09/15/2024 Address:[address] [place] [address], [facility] Subjective: * Chief Complaints: * ???ANNUAL EXAMCBACK [...] yrs.?Mother: 78 yrs.?1 daughter(s) . .? Mother-Emphysema Father-DC 1 brother 1 sister, Denies mental health/substance [...] Auto 0.000 0.0-0. 012 - X10*3/uL ???Lab:[facility] [place]. P hiwot Fast (Order Date - 08/18/2024) [...] negative??10.?Depression screening? Notes: negative screen?? * Procedure Codes:?05215 TEST FOR BLOOD, FECES * Preventive Medicine:? ??Counseling:?Care goal follow-up plan:?Counseling for abnormal BMI provided?Yes,?Above Normal BMI Follow-up?Giving encouragement to exercise.? * * Sign off status: Completed true * Provider:?Teto Gary MD Date:?1 11/16/2023 Generated for Raffaele lara/Aminta/Yasmine on:?11/22/2024 08:04 AM EST History and Physical Notes [...]
--- OUTSIDE RECORDS SUMMARY | 2024-11-22 08:05 | XMS_ITS ---
Author Organization Teto Gary MD Address [address] [place], [place] [phone] Care Team Providers Care Proposal Manager Name Role Phone Cookie Teto Primary Care Provider REASON FOR VISIT ER Visit rec'd Encounters Encounter Location Date Provider Diagnosis Teto Gary MD [address] [facility] [address] [place] [phone] 10/27/2024 Teto Gary Plan Of Treatment Next Appt Details Provider Name:Teto pastorr, 03/09/2025 07:15:00 AM, [address] [place] [address], Suite [facility], [place], [place], [phone], Provider Name:Teto kaye, 03/16/2025 01:30:00 PM, [address] [place] [address], Suite [facility], [place], [place], [phone], Provider Name:Teto kaye, 09/13/2025 07:30:00 AM, [address] [place] [address], Suite [facility], [place], [place], [phone], Provider Name:Teto kaye, 09/20/2025 01:00:00 PM, [address], [address], [place], [phone], Progress Notes * LAVERN LIVINGSTON RDOB:1950 (74 yo M)Acc No.[id number]:10/27/2024 Patient:?LAVERN LIVINGSTON :1950???Age:74 Y???Sex:Male Address:[address] [place] [address] [place], [address] * true * Date:? Generated for Raffaele lara/Aminta/eTciprianosmitting on:?11/22/2024 08:04 AM EST
--- OUTSIDE RECORDS SUMMARY | 2024-11-22 08:05 | XMS_ITS ---
Author Organization Teto Gary MD Address [address] [place], [place] [phone] Care Team Providers Care Global Account Manager Name Role Phone Teto Gary Primary Care Provider [phone] Allergies Allergen (clinical drug ingredient) Drug/Non Drug Allergy documented on EMR Reaction Allergy Type Onset Date Status diphenhydramine Benadryl Unknown Drug Allergy A ctive REASON FOR VISIT was seen at [facility] for hernia, has already seen the [...] MD [address] [place], [place] [phone] 11/13/2024 Teto Gary Mechanical heart valve present [...] Up: 2 Months, Reason: Provider Name:Teto kaye, 03/09/2025 07:15:00 AM, [address] [facility], [address], [place], [place], [phone], Provider Name:Teto kaye, 03/16/2025 01:30:00 PM, [address], [address], [place], [place], [phone], Provider Name:Teto Sky ier, 09/13/2025 07:30:00 AM, [address], [address], [place], [phone], Provider Name:Teto Sky ier, 09/20/2025 01:00:00 PM, [address], [address], [place], [phone], Progress Notes * MIKI LAVERN RDOB:1950 (74 yo M)Acc No.[id number]:11/13/2024 Progress Notes Patient:?LAVERN LIVINGSTON Provider:?Teto Gary MD :1950???Age:74 Y???Sex:Male Jacky e:11/13/2024 Address:[address] [place] [address], [facility] Subjective: * Chief Complaints: * ???was seen at [facility] for he rnia, has already seen the surgeon.his will be at this appt wih him-she is concerned his very confused. ER visit is scanned in chart . * HPI: ???Symptom(s):?patient is a 74 yo male here for follow up from the er. records reviewed and medications reconcilled.? daughter is concerned that he is getting forgetful. at times when driving he can't remember where he is . she is concerned that he is not seeing a motorcycle maker at present. memory has been bad for a couple years. daughter states in the middle of a conversation will not remember what he was talking about. * ROS:?General/Constitutional:?Denies?Chills.?Denies?Fatigue.?Denies?Fever.?Denies?Headache.?ENT:?Patient denies?decreased sense of smell, any loss of taste, sore throat.?Denies?Sore throat.?Respiratory:?Denies?Cough.?Denies?Shortness of breath at rest.?Denies?Shortness of breath with exertion.?Gastrointestinal:?Denies?Diarrhea.?Denies?Nausea.?Musculoskeletal:?Patient denies?muscle aches.?Peripheral Vascular:?Patient denies?red and blue toes.? * Medical History:? * Surgical History:? * Hospitalization/Major Diagno stic Procedure:? * Medications:?TakingSildenafi l Citrate 100 MG Tablet 1 tablet as [...] 1 CAPSULE BY MOUTH EVERY DAY * Allergies:?Benadryl: Allergy yes[Allergies Verified] Objective: * Vitals:?Ht: 71.5, Wt: 266, B TX:36.58, BP:182/70, Repeat BP:155/70, Wt-k.66. weight is up 13 pounds vilma 09-15-24. * Examination: ???General Examination: ?GENERAL APPEARANCE:?alert, well hydrated, in no distress.?HEAD:?normocephalic.?SKIN:?good turgor.?HEART:?regular rate and rhythm, grade 2/6 systolic murmur at left sternal border.?LUNGS:?no wheezes, rales, rhonchi, good air movement, clear to auscultation bilaterally.? 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 Plan: * Treatment: 2.?Mild dementia without beh avioral disturbance, psychotic disturbance, mood disturbance, or anxiety, unspecified dementia type? Notes: at the present time he doesn't want to do anything. will consider mri in future?? 3.?Heme positive stool? Notes: is going to go to cardiology and then get a colonoscopy?? * Procedure Codes:? * Follow Up:?2 Months * * Sign off status: Completed true * Provider:?Teto Gary MD Date:?0 11/13/2024 Generated for Raffaele lara/Aminta/eTbanitting on:?11/22/2024 08:05 AM EST History and Physical Notes [...] concerned that he is not seeing a motorcycle maker at present. memory has been bad for [...]
--- NOTE | 2024-11-22 08:23 | MHC.OFFVISCO ---
Intake Intake Visit Reasons: Anticoagulation Allergies diphenhydramine [From BENADRYL] Allergy (Intermediate, Verified 11/22/24 08:17) RESTLESS LEGS lisinopril [LISINOPRIL] Allergy (Intermediate, Verified 11/22/24 08:17) DIZZINESS Lisiopril/HCTZ Allergy (Unknown, Uncoded 11/22/24 08:17) dizziness Medication List - Last Reconciled 11/22/24 by Noemi Holder RN acetaminophen 975 mg PO QID PRN amlodipine 10 mg PO DAILY docusate sodium 100 mg PO BID PRN levothyroxine 150 mcg PO DAILY losartan 25 mg PO DAILY metoprolol succinate ER 50 mg PO DAILY polyethylene glycol 3350 (Gavilax) 17 grams PO DAILY rosuvastatin 40 mg PO DAILY tamsulosin (Flomax) 0.4 mg PO DAILY warfarin 5 mg See Protocol PO DAILY Nursing Note INR 1.5-?? out of therapeutic range of 2-3 Medications and supplements reviewed Patient status: pt s/p hernia repair on 11/15/24, 5 day hold of warfarin prior with lovenox bridge pre and post pt states instructed to take lovenox once daily Medications or supplements: colace, tylenol prn Diet: same Denies any signs and symptoms of bleeding or clotting or unusual bruising Bleeding, bruising, clotting discussed Nutritional guidance given: no greens for 2 days, eat reds to raise Dose: 12.5mg today and tomm, cont lovenox F/U INR Date : wednesday11/24/24? Patient verbalizing understanding of instructions given. pcp dr lewis office called with low inr/dosing and f/u appt. Dr Handy covering today- spoke to Ana Laura at 0910. aware of pt surgery and pt on lovenox Coding Level of Care Code Est Patient Level 1 Diagnoses Current use of anticoagulant therapy Z79.01 Results AMB INR Fingerstick AMB INR Fingerstick 1.5 Last Edit by Noemi Holder RN on 11/22/24 08:26 interface delay Assessment & Plan Assessment & Plan (1) Current use of anticoagulant therapy: Code(s): Z79.01 - jail (current) 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
[2024-11-22 08:31] LABS: Prothrombin Time Whole Bld POC 17.8 sec (11.1-13.5); ~PT, ~INR - Anti Coag Clinic 1.5 (0.9-1.1)
== END 2024-11-22 08:32 | disposition home or self-care (01) ==
LOC: HO.ACS 08:03
PROVIDERS: PCP Internal Medicine; Visit Provider Internal Medicine
DX: Z79.01 Long term (current) use of anticoagulants (principal)

== ENCOUNTER → 2024-11-22 08:03 | Outpatient (BNVA) | payer MEDICARE, SELFPAY | PROVIDERS: PCP Internal Medicine; Visit Provider Internal Medicine | DX: Z95.2 Presence of prosthetic heart valve (principal); Z79.01 Long term (current) use of anticoagulants; Z51.81 Encounter for therapeutic drug level monitoring | CPT/HCPCS: 85610; 99211 ==

== ENCOUNTER 2024-11-24 08:00 | Outpatient (AMB) | payer MEDICARE, SELFPAY ==
--- OUTSIDE RECORDS SUMMARY | 2024-11-24 08:03 | XMS_ITS ---
Author Organization Teto Gary MD Address [address] [place], [place] [phone] Care Team Providers Care Urban Gardening Specialist Name Role Phone Cookie Teto Primary Care Provider REASON FOR VISIT ER Visit rec'd Encounters Encounter Location Date Provider Diagnosis Teto Gary MD [address] [facility] [address] [place] [phone] 10/27/2024 Teto Gary Plan Of Treatment Next Appt Details Provider Name:Teto pastorr, 03/09/2025 07:15:00 AM, [address] [place] [address], Suite [facility], [place], [place], [phone], Provider Name:Teto kaye, 03/16/2025 01:30:00 PM, [address] [place] [address], Suite [facility], [place], [place], [phone], Provider Name:Teto kaye, 09/13/2025 07:30:00 AM, [address] [place] [address], Suite [facility], [place], [place], [phone], Provider Name:Teto kaye, 09/20/2025 01:00:00 PM, [address] [facility] [address], [address], [place], [phone], Progress Notes * LAVERN LIVINGSTON RDOB:1950 (74 yo M)Acc No.[id number]:10/27/2024 Patient:?LAVERN LIVINGSTON :1950???Age:74 Y???Sex:Male Address:[address] [place] [address] [place], [address] * true * Date:? Generated for Raffaele lara/Aminta/eTransmitting on:?11/24/2024 08:03 AM EST
--- OUTSIDE RECORDS SUMMARY | 2024-11-24 08:03 | XMS_ITS | Clinical Summary ---
Author Organization [facility] Address [address] [facility] [address] [place] [address] Phone Care Team Providers Care Toll Transmission Worker Name Role Phone Teto Gary MD Primary Care Provider [phone] Allergies Active Allergy Reactions Criticality Noted Date [...] this topic Insurance AETNA MCR ADV PPO ([id number]) AETNA MCR ADV PPO ([id number]) Care Teams Toll Transmission Worker Relationship Specialty Start Date End Date Teto Gary MD [address] [place] [address] [address] [place], [place] PCP - General 10/21/20
--- OUTSIDE RECORDS SUMMARY | 2024-11-24 08:03 | XMS_ITS ---
Author Organization Teto Gary MD Address [address] [place], [place] [phone] Care Team Providers Care Polymer Chemist Name Role Phone Teto Gary Primary Care [...] Location Date Provider Diagnosis Teto Gary MD [address] [place] [address] [place] [phone] 09/15/2024 Teto Gary Left inguinal hernia K40.90 [...] Details Provider Name:Teto kaye, 03/09/2025 07:15:00 AM, [address] [place] [address], [address], [place], [place], [phone], Provider Name:Teto Sky ier, 03/16/2025 01:30:00 PM, [address], [address], [place], [phone], Provider Name:Teto Sky ier, 09/13/2025 07:30:00 AM, [address] [facility], [address], [place], [phone], Provider Name:Teto Sky ier, 09/20/2025 01:00:00 PM, [address], [address], [place], [phone], Progress Notes * LAVERN LIVINGSTON RDOB:1950 (74 yo M)Acc No.[id number]:09/15/2024 Progress Notes Patient:?LAVERN LIVINGSTON Provider:?Teto Gary MD :1950???Age:74 Y???Sex:Male Jacky e:09/15/2024 Address:[address] [place] [address], [id number] Subjective: * Chief Complaints: * ???ANNUAL EXAMCBACK [...] yrs.?Mother: 78 yrs.?1 daughter(s) . .? Mother-Emphysema Father-[place] 1 brother 1 sister, Denies mental health/substance [...] Auto 0.000 0.0-0. 012 - X10*3/uL ???Lab:[facility] [place]. P hiwot Fast (Order Date - 08/18/2024) [...] negative??10.?Depression screening? Notes: negative screen?? * Procedure Codes:?68513 TEST FOR BLOOD, FECES * Preventive Medicine:? ??Counseling:?Care goal follow-up plan:?Counseling for abnormal BMI provided?Yes,?Above Normal BMI Follow-up?Giving encouragement to exercise.? * * Sign off status: Completed true * Provider:?Teto Gary MD Date:?1 11/16/2023 Generated for Raffaele lara/Aminta/Yasmine on:?11/24/2024 08:03 AM EST History and Physical Notes [...]
--- NOTE | 2024-11-24 08:12 | MHC.OFFVISCO ---
Intake Intake Visit Reasons: Anticoagulation Allergies diphenhydramine [From BENADRYL] Allergy (Intermediate, Verified 11/24/24 08:08) RESTLESS LEGS lisinopril [LISINOPRIL] Allergy (Intermediate, Verified 11/24/24 08:08) DIZZINESS Lisiopril/HCTZ Allergy (Unknown, Uncoded 11/24/24 08:08) dizziness Medication List - Last Reconciled 11/24/24 by Noemi Holder RN acetaminophen 975 mg PO QID PRN amlodipine 10 mg PO DAILY docusate sodium 100 mg PO BID PRN levothyroxine 150 mcg PO DAILY losartan 25 mg PO DAILY metoprolol succinate ER 50 mg PO DAILY polyethylene glycol 3350 (Gavilax) 17 grams PO DAILY rosuvastatin 40 mg PO DAILY tamsulosin (Flomax) 0.4 mg PO DAILY warfarin 5 mg See Protocol PO DAILY Nursing Note INR: 2.6- in therapeutic range 2-3 Medications and supplements reviewed- no changes No changes in health, diet, medications, or supplements, Denies any signs and symptoms of bleeding or bruising or clotting. Bleeding, bruising, clotting discussed Nutritional guidance given Dose: 10mg x 6, 7.5mg x 1 stop lovenox F/U INR: pt request 2 week f/u Patient verbalizes understanding of instructions given pt s/p hernia repair. appetite good. less pain Coding Level of Care Code Est Patient Level 1 Diagnoses Current use of anticoagulant therapy Z79.01 Results AMB INR Fingerstick AMB INR Fingerstick 2.6 Last Edit by Noemi Holder RN on 11/24/24 08:14 interface delay Assessment & Plan Assessment & Plan (1) Current use of anticoagulant therapy: Code(s): Z79.01 - [facility] (current) 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
[2024-11-24 08:13] LABS: Prothrombin Time Whole Bld POC 30.8 sec (11.1-13.5); ~PT, ~INR - Anti Coag Clinic 2.6 (0.9-1.1)
== END 2024-11-24 08:20 | disposition home or self-care (01) ==
LOC: HO.ACS 08:00
PROVIDERS: PCP Internal Medicine; Visit Provider Internal Medicine
DX: Z79.01 Long term (current) use of anticoagulants (principal)

== ENCOUNTER → 2024-11-24 08:00 | Outpatient (BNVA) | payer MEDICARE, SELFPAY | PROVIDERS: PCP Internal Medicine; Visit Provider Internal Medicine | DX: Z95.2 Presence of prosthetic heart valve (principal); Z79.01 Long term (current) use of anticoagulants; Z51.81 Encounter for therapeutic drug level monitoring | CPT/HCPCS: 85610; 99211 ==

== ENCOUNTER 2024-12-11 08:17 | Outpatient (AMB) | payer MEDICARE, SELFPAY ==
--- OUTSIDE RECORDS SUMMARY | 2024-12-11 08:26 | XMS_ITS | Clinical Summary ---
Author Organization [facility] Address [address] [facility] [address] [place] [address] Phone Care Team Providers Care Layboy Tender Name Role Phone Teto Gary MD Primary [...] this topic Insurance [employer]ETNA MCR ADV PPO ([id number]) AETNA MCR ADV PPO ([id number]) Care Teams Layboy Tender Relationship Specialty Start Date End Date Teto Gary MD [address] [place] [address] [address] [place], [place] PCP - General 10/21/20
[2024-12-11 08:32] LABS: Prothrombin Time Whole Bld POC 38.2 sec (11.1-13.5); ~PT, ~INR - Anti Coag Clinic 3.2 (0.9-1.1)
--- NOTE | 2024-12-11 08:35 | MHC.OFFVISCO ---
Intake Intake Visit Reasons: Anticoagulation Allergies diphenhydramine [From BENADRYL] Allergy (Intermediate, Verified 12/11/24 08:26) RESTLESS LEGS lisinopril [LISINOPRIL] Allergy (Intermediate, Verified 12/11/24 08:26) DIZZINESS Lisiopril/HCTZ Allergy (Unknown, Uncoded 12/11/24 08:26) dizziness Medication List - Last Reconciled 12/11/24 by Nicole Mercado RN acetaminophen 975 mg PO QID PRN amlodipine 10 mg PO DAILY docusate sodium 100 mg PO BID PRN levothyroxine 150 mcg PO DAILY losartan 25 mg PO DAILY metoprolol succinate ER 50 mg PO DAILY polyethylene glycol 3350 (Gavilax) 17 grams PO DAILY rosuvastatin 40 mg PO DAILY tamsulosin (Flomax) 0.4 mg PO DAILY warfarin 5 mg See Protocol PO DAILY Nursing Note INR: 3.2 in therapeutic range Medications and supplements reviewed No changes in health, diet, medications, or supplements, Denies any signs and symptoms of bleeding or bruising or clotting. Bleeding, bruising, clotting discussed Nutritional guidance given - BALANCE AND HAVE GREENS SOON Dose: 7.5MG X 1 / 10MG X 6 DAHS F/U INR: 3 WEEKS Patient verbalizes understanding of instructions given Coding Level of Care Code Est Patient Level 1 Diagnoses Current use of anticoagulant therapy Z79.01 Assessment & Plan Assessment & Plan (1) Current use of anticoagulant therapy: Code(s): Z79.01 - tank terminal gauger (current) 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
== END 2024-12-11 08:36 | disposition home or self-care (01) ==
LOC: HO.ACS 08:17
PROVIDERS: PCP Internal Medicine; Visit Provider Internal Medicine
DX: Z79.01 Long term (current) use of anticoagulants (principal)

== ENCOUNTER → 2024-12-11 08:17 | Outpatient (BNVA) | payer MEDICARE, SELFPAY | PROVIDERS: PCP Internal Medicine; Visit Provider Internal Medicine | DX: Z95.2 Presence of prosthetic heart valve (principal); Z79.01 Long term (current) use of anticoagulants; Z51.81 Encounter for therapeutic drug level monitoring | CPT/HCPCS: 85610; 99211 ==

== ENCOUNTER 2025-01-01 08:04 | Outpatient (AMB) | payer MEDICARE, SELFPAY ==
[2025-01-01 08:27] LABS: Prothrombin Time Whole Bld POC 54.9 sec (11.1-13.5); ~PT, ~INR - Anti Coag Clinic 4.6 (0.9-1.1)
--- NOTE | 2025-01-01 08:32 | MHC.OFFVISCO ---
Intake Intake Visit Reasons: Anticoagulation Allergies diphenhydramine [From BENADRYL] Allergy (Intermediate, Verified 01/01/25 08:21) RESTLESS LEGS lisinopril [LISINOPRIL] Allergy (Intermediate, Verified 01/01/25 08:21) DIZZINESS Lisiopril/HCTZ Allergy (Unknown, Uncoded 01/01/25 08:21) dizziness Medication List - Last Reconciled 01/01/25 by Nicole Mercado RN acetaminophen 975 mg PO QID PRN amlodipine 10 mg PO DAILY docusate sodium 100 mg PO BID PRN levothyroxine 150 mcg PO DAILY losartan 25 mg PO DAILY metoprolol succinate ER 50 mg PO DAILY polyethylene glycol 3350 (Gavilax) 17 grams PO DAILY rosuvastatin 40 mg PO DAILY tamsulosin (Flomax) 0.4 mg PO DAILY warfarin 5 mg See Protocol PO DAILY Nursing Note INR 4.6 out of therapeutic range Medications and supplements reviewed Patient status: Had a few beers with st Pat with [facility] and cabbage Medications or supplements: no changes Diet: good Denies any signs and symptoms of bleeding or clotting or unusual bruising Bleeding, bruising, clotting discussed Nutritional guidance given: remember weekly spinach - pt states he will have it today Dose: decrease today's dose 5mg then resume 7.5mg x 1 day/ 10mg x 6 days F/U INR Date : 1 week due to elevated INR ?? Patient verbalizing understanding of instructions given with readback. Coding Level of Care Code Est Patient Level 1 Diagnoses Current use of anticoagulant therapy Z79.01 Results AMB INR Fingerstick AMB INR Fingerstick 4.6 Last Edit by Nicole Mercado RN on 01/01/25 08:29 Assessment & Plan Assessment & Plan (1) Current use of anticoagulant therapy: Code(s): Z79.01 - senior care (current) 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
== END 2025-01-01 08:35 | disposition home or self-care (01) ==
LOC: HO.ACS 08:04
PROVIDERS: PCP Internal Medicine; Visit Provider Internal Medicine Medical Oncology
DX: Z79.01 Long term (current) use of anticoagulants (principal)

== ENCOUNTER → 2025-01-01 08:04 | Outpatient (BNVA) | payer MEDICARE, SELFPAY | PROVIDERS: PCP Internal Medicine; Visit Provider Internal Medicine Medical Oncology | DX: Z95.2 Presence of prosthetic heart valve (principal); Z51.81 Encounter for therapeutic drug level monitoring; Z79.01 Long term (current) use of anticoagulants | CPT/HCPCS: 85610; 99211 ==

== ENCOUNTER 2025-01-08 08:04 | Outpatient (AMB) | payer MEDICARE, MEDICAID, SELFPAY ==
[2025-01-08 08:13] LABS: Prothrombin Time Whole Bld POC 16.7 sec (11.1-13.5); ~PT, ~INR - Anti Coag Clinic 1.4 (0.9-1.1)
--- NOTE | 2025-01-08 08:14 | MHC.OFFVISCO ---
Intake Intake Visit Reasons: Anticoagulation Allergies diphenhydramine [From BENADRYL] Allergy (Intermediate, Verified 01/08/25 08:06) RESTLESS LEGS lisinopril [LISINOPRIL] Allergy (Intermediate, Verified 01/08/25 08:06) DIZZINESS Lisiopril/HCTZ Allergy (Unknown, Uncoded 01/08/25 08:06) dizziness Medication List - Last Reconciled 01/08/25 by Stefani Kelly RN acetaminophen 975 mg PO QID PRN amlodipine 10 mg PO DAILY docusate sodium 100 mg PO BID PRN levothyroxine 150 mcg PO DAILY losartan 25 mg PO DAILY metoprolol succinate ER 50 mg PO DAILY polyethylene glycol 3350 (Gavilax) 17 grams PO DAILY rosuvastatin 40 mg PO DAILY tamsulosin (Flomax) 0.4 mg PO DAILY warfarin 5 mg See Protocol PO DAILY Nursing Note INR: 1.4?out of therapeutic range of 2-3 Pt states he missed a dose of warfarin 7.5mg yesterday Medications and supplements reviewed Patient status: feels well Medications or supplements: no changes Diet: usual diet for pt Denies any signs and symptoms of bleeding or clotting or unusual bruising Bleeding, bruising, clotting discussed Nutritional guidance given: to avoid greens X 2 days and to have a serving of food that raise the INRX 2 days. Pt states he will have beets and cranberry juice Dose: increase today's dose to 12.5mg (10mg) and increase tomorrow's dose to 12.5mg (10mg) then resume usual dose of 10mg X 6 days and 7.5mg X 1 day F/U INR Date: 1 week?? Patient verbalizing understanding of instructions given T/C to Dr Spencer's office. Spoke to Lorna and reported INR of 1.4 with dosing plan and planned dietary changes and next retest date. Coding Level of Care Code Est Patient Level 1 Diagnoses Current use of anticoagulant therapy Z79.01 Results AMB INR Fingerstick AMB INR Fingerstick 1.4 Last Edit by Stefani Kelly RN on 01/08/25 08:13 interface delay Assessment & Plan Assessment & Plan (1) Current use of anticoagulant therapy: Code(s): Z79.01 - 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
== END 2025-01-08 09:51 | disposition home or self-care (01) ==
LOC: HO.ACS 08:04
PROVIDERS: PCP Internal Medicine; Visit Provider Internal Medicine Medical Oncology
DX: Z79.01 Long term (current) use of anticoagulants (principal)

== ENCOUNTER → 2025-01-08 08:04 | Outpatient (BNVA) | payer MEDICARE, MEDICAID, SELFPAY | PROVIDERS: PCP Internal Medicine; Visit Provider Internal Medicine Medical Oncology | DX: Z95.2 Presence of prosthetic heart valve (principal); Z51.81 Encounter for therapeutic drug level monitoring; Z79.01 Long term (current) use of anticoagulants | CPT/HCPCS: 85610; 99211 ==

== ENCOUNTER 2025-01-15 08:16 | Outpatient (AMB) | payer MEDICARE, MEDICAID, SELFPAY ==
[2025-01-15 08:22] LABS: Prothrombin Time Whole Bld POC 23.9 sec (11.1-13.5)
--- NOTE | 2025-01-15 08:27 | MHC.OFFVISCO ---
Intake Intake Visit Reasons: Anticoagulation Allergies diphenhydramine [From BENADRYL] Allergy (Intermediate, Verified 01/15/25 08:18) RESTLESS LEGS lisinopril [LISINOPRIL] Allergy (Intermediate, Verified 01/15/25 08:18) DIZZINESS Lisiopril/HCTZ Allergy (Unknown, Uncoded 01/15/25 08:18) dizziness Medication List - Last Reconciled 01/15/25 by Stefani Kelly RN acetaminophen 975 mg PO QID PRN amlodipine 10 mg PO DAILY docusate sodium 100 mg PO BID PRN levothyroxine 150 mcg PO DAILY losartan 25 mg PO DAILY metoprolol succinate ER 50 mg PO DAILY polyethylene glycol 3350 (Gavilax) 17 grams PO DAILY rosuvastatin 40 mg PO DAILY tamsulosin (Flomax) 0.4 mg PO DAILY warfarin 5 mg See Protocol PO DAILY Nursing Note INR: 2.0 in therapeutic range of 2-3 after being only 1.4 last week due to missed dose. Medications and supplements reviewed No changes in health, diet, medications, or supplements, Denies any signs and symptoms of bleeding or bruising or clotting. Bleeding, bruising, clotting discussed Nutritional guidance given to avoid greens and to have a serving or two of the foods that raise the INR. Food list discussed. Dose: increase today's dose to 12.5mg (10mg) then resume usual dose of 10mg X 6 days and 7.5mg X 1 day (sun). F/U INR: 1 week Patient verbalizes understanding of instructions given Coding Level of Care Code Est Patient Level 1 Diagnoses Current use of anticoagulant therapy Z79.01 Assessment & Plan Assessment & Plan (1) Current use of anticoagulant therapy: Code(s): Z79.01 - intermodal dispatcher (current) 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
--- OUTSIDE RECORDS SUMMARY | 2025-01-15 08:38 | XMS_ITS ---
Author Organization Teto Gary MD Address [address] [place], [place] [phone] Care Team Providers Care Operations Manager/Coordinator Name Role Phone Teto Gary Primary Care Provider [phone] Allergies Allergen (clinical drug ingredient) Drug/Non Drug Allergy documented on EMR Reaction Allergy Type Onset Date Status diphenhydramine Benadryl Unknown Drug Allergy A ctive REASON FOR VISIT was seen at [facility] for hernia, has already [...] Date Provider Diagnosis Teto Gary MD [address] [place], [place] [phone] 11/13/2024 Teto Gary Mechanical heart valve present [...] Provider Name:Teto kaye, 03/09/2025 07:15:00 AM, [address] [facility], [address], [place], [place], [phone], Provider Name:Teto kaye, 03/16/2025 01:30:00 PM, [address], [address], [place], [place], [phone], Provider Name:Teto Sky ier, 09/13/2025 07:30:00 AM, [address], [address], [place], [phone], Provider Name:Teto Sky ier, 09/20/2025 01:00:00 PM, [address], [address], [place], [phone], Progress Notes * MIKI LAVERN RDOB:1950 (74 yo M)Acc No.[id number]:11/13/2024 Progress Notes Patient:?LAVERN LIVINGSTON Provider:?Teto Gary MD :1950???Age:74 Y???Sex:Male Jacky e:11/13/2024 Address:[address] [place] [address], [facility] Subjective: * Chief Complaints: * ???was seen at [facility] for he rnia, has already seen [...] 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 memory has been bad for [...] Objective: * Vitals:?Ht: 71.5, Wt: 266, B LA:36.58, BP:182/70, Repeat BP:155/70, Wt-k.66. 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 memory has been bad for [...]
--- OUTSIDE RECORDS SUMMARY | 2025-01-15 08:38 | XMS_ITS | Clinical Summary ---
Author Organization [facility] Address [address] [facility] [address] [place] [address] Phone Care Team Providers Care Solid Waste Facility Supervisor Name Role Phone Teto Gary MD Primary [...] Colorectal Cancer Screening: Sigmoidoscopy 1999 Influenza Vaccine (Season Ended) 2025 Hepatitis B Vaccine Aged Out No longe r eligible based on patient's age to complete this topic Insurance [employer] MCR ADV PPO ([id number]) A[employer] MCR ADV PPO ([id number]) Care Teams Solid Waste Facility Supervisor Relationship Specialty Start Date End Date Teto Gary MD [address] [place] [address] [address] [place], [place] PCP - General 10/21/20
--- OUTSIDE RECORDS SUMMARY | 2025-01-15 08:38 | XMS_ITS ---
Author Organization Teto Gary MD Address [address] [place], [place] [phone] Care Team Providers Care Associate Civil Engineer Name Role Phone Cookie Teto Primary Care Provider [phone] REASON FOR VISIT ER Visit rec'd Encounters Encounter Location Date Provider Diagnosis Teto Gary MD 10 [facility] [address] [place] [phone] 10/27/2024 Teto Gary Plan Of Treatment Next Appt Details Provider Name:Teto pastorr, 03/09/2025 07:15:00 AM, [address] [place] [address], Suite [facility], [place], [place], [phone], Provider Name:Teto kaye, 03/16/2025 01:30:00 PM, [address] [place] [address], Suite [facility], [place], [place], [phone], Provider Name:Teto kaye, 09/13/2025 07:30:00 AM, [address] [place] [address], Suite [facility], [place], [place], [phone], Provider Name:Teto kaye, 09/20/2025 01:00:00 PM, [address], [address], [place], [place], [phone], Progress Notes * LAVERN LIVINGSTON RDOB:1950 (74 yo M)Acc No.[id number]:10/27/2024 Patient:?LAVERN LIVINGSTON :1950???Age:74 Y???Sex:Male Address:[address] [place] [address] [place], [address] * true * Date:? Generated for Raffaele lara/Aminta/eTransmitting on:?01/15/2025 08:38 AM EDT
--- OUTSIDE RECORDS SUMMARY | 2025-01-15 08:38 | XMS_ITS ---
Author Organization Teto Gary MD Address [address] [place], [place] [phone] Care Team Providers Care Muck Miner Blasting Name Role Phone Cookie Teto Primary Care Provider [phone] REASON FOR VISIT FYI INR results Encounters Encounter Location Date Provider Diagnosis Teto Gary MD 10 [facility] [address] [place] [phone] 01/08/2025 Teto Gary Plan Of Treatment Next Appt Details Provider Name:Teto Sky ier, 03/09/2025 07:15:00 AM, [address] [place] [address], Suite [facility], [place], [place], [phone], Provider Name:Teto Sky ier, 03/16/2025 01:30:00 PM, [address] [place] [address], Suite [facility], [place], [place], [phone], Provider Name:Teto Sky ier, 09/13/2025 07:30:00 AM, [address] [place] [address], Suite [facility], [place], [place], [phone], Provider Name:Teto kaye, 09/20/2025 01:00:00 PM, [address] [facility], [address], [place], [place], [phone], Progress Notes * LAVERN LIVINGSTON RDOB:1950 (74 yo M)Acc No.[id number]:01/08/2025 Patient:?LAVERN LIVINGSTON :1950???Age:74 Y???Sex:Male Address:[address] [place] [address] [place], [address] * true * Date:? Generated for Raffaele lara/Aminta/eTransmitting on:?01/15/2025 08:38 AM EDT
== END 2025-01-15 08:30 | disposition home or self-care (01) ==
LOC: HO.ACS 08:16
PROVIDERS: PCP Internal Medicine; Visit Provider Internal Medicine Medical Oncology
DX: Z79.01 Long term (current) use of anticoagulants (principal)

== ENCOUNTER → 2025-01-15 08:16 | Outpatient (BNVA) | payer MEDICARE, MEDICAID, SELFPAY | PROVIDERS: PCP Internal Medicine; Visit Provider Internal Medicine Medical Oncology | DX: Z95.2 Presence of prosthetic heart valve (principal); Z51.81 Encounter for therapeutic drug level monitoring; Z79.01 Long term (current) use of anticoagulants | CPT/HCPCS: 85610; 99211 ==

== ENCOUNTER 2025-02-07 13:06 | Outpatient (AMB) | payer MEDICARE, MEDICAID, SELFPAY ==
--- NOTE | 2025-02-07 13:12 | MHC.OFFVISCO ---
Intake Intake Visit Reasons: Anticoagulation Allergies diphenhydramine [From BENADRYL] Allergy (Intermediate, Verified 02/07/25 13:08) RESTLESS LEGS lisinopril [LISINOPRIL] Allergy (Intermediate, Verified 02/07/25 13:08) DIZZINESS Lisiopril/HCTZ Allergy (Unknown, Uncoded 02/07/25 13:08) dizziness Medication List - Last Reconciled 02/07/25 by Noemi Holder RN acetaminophen 975 mg PO QID PRN amlodipine 10 mg PO DAILY docusate sodium 100 mg PO BID PRN levothyroxine 150 mcg PO DAILY losartan 25 mg PO DAILY metoprolol succinate ER 50 mg PO DAILY polyethylene glycol 3350 (Gavilax) 17 grams PO DAILY rosuvastatin 40 mg PO DAILY tamsulosin (Flomax) 0.4 mg PO DAILY warfarin 5 mg See Protocol PO DAILY Nursing Note INR3.1-?? out of therapeutic range of 2-3 Medications and supplements reviewed Patient status: no c.o Medications or supplements: no changes Diet: same Denies any signs and symptoms of bleeding or clotting or unusual bruising Bleeding, bruising, clotting discussed Nutritional guidance given: will eat a green today Dose: 10mg x 6, 7.5mg x 1 F/U INR Date : 2 weeks? Patient verbalizing understanding of instructions given. Coding Level of Care Code Est Patient Level 1 Diagnoses Current use of anticoagulant therapy Z79.01 Assessment & Plan Assessment & Plan (1) Current use of anticoagulant therapy: Code(s): Z79.01 - long term care pharmacist (current) 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
[2025-02-07 13:13] LABS: Prothrombin Time Whole Bld POC 37.7 sec (11.1-13.5); ~PT, ~INR - Anti Coag Clinic 3.1 (0.9-1.1)
--- OUTSIDE RECORDS SUMMARY | 2025-02-07 14:24 | XMS_ITS | Clinical Summary ---
Author Organization [facility] Address [address] [facility] [address] [place] [address] Phone Care Team Providers Care Activities Assistant Name Role Phone Teto Gary MD Primary [...] Due Date Last Done Comments Pneumococcal Vaccine: 50+ Ye ars (1 of 2 - PCV) 1969 Colorectal Cancer Screening: Annual FOBT 1999 Colorectal Cancer Screening: Colonoscopy 1999 Colorectal Cancer Screening: Sigmoidoscopy 1999 Influenza Vaccine (Season Ended) 2025 Hepatitis B Vaccine Aged Out No longe r eligible based on patient's age to complete this topic Insurance [employer] MCR Adv PPO ([id number]) [employer] MCR Adv PPO ([id number]) Care Teams Activities Assistant Relationship Specialty Start Date End Date Teto Gary MD [address] [place] [address] [address] [place], [place] PCP - General 10/21/20
== END 2025-02-07 13:18 | disposition home or self-care (01) ==
LOC: HO.ACS 13:06
PROVIDERS: PCP Internal Medicine; Visit Provider Internal Medicine Medical Oncology
DX: Z79.01 Long term (current) use of anticoagulants (principal)

== ENCOUNTER → 2025-02-07 13:06 | Outpatient (BNVA) | payer MEDICARE, MEDICAID, SELFPAY | PROVIDERS: PCP Internal Medicine; Visit Provider Internal Medicine Medical Oncology | DX: Z95.2 Presence of prosthetic heart valve (principal); Z79.01 Long term (current) use of anticoagulants; Z51.81 Encounter for therapeutic drug level monitoring | CPT/HCPCS: 85610; 99211 ==

== ENCOUNTER 2025-02-19 08:28 | Outpatient (AMB) | payer MEDICARE, MEDICAID, SELFPAY ==
--- OUTSIDE RECORDS SUMMARY | 2025-02-19 08:31 | XMS_ITS | Patient Health Record ---
Author Organization Teto Gary MD Address [address] [place], [place] [id number] Care Team Providers Care Flattening Machine Operator Name Role Phone Teto Gary Primary Care Provider Allergies Allergen (clinical drug ingredient) Drug/Non Drug Allergy documented on EMR Reaction Allergy Type Onset Date Status diphenhydramine Benadryl Unknown Drug Allergy A ctive Results Component Value Reference Range Notes Complete Blood Count Auto Di ff Reviewed date:08/18/2024 12:47:17 PM Interpretation: Performing Lab:[facility], [address] [place] [phone] Notes/Report: White Blood Count 6.2 4.8-10.8 X10*3/uL [...] NRBC Abs Auto 0.000 0.0-0.012 X10*3/uL Comprehensive [place]. Panel Fa st Reviewed date:08/18/2024 01:03:50 PM Interpretation: Performing Lab:[facility], [address] [place] [phone] Notes/Report: Sodium 141 135-145 mmol/L Potassium 3.9 3.3-5.1 mmol/L Chloride 109 96-108 mmol/L Carbon Dioxide 25 22-29 mmol/L Anion Gap 11 12-20 Blood Urea Nitrogen 20 9-16 mg/dL Creatinine 1.31 0.5-1.4 mg/dL Estimated Glomerular Filt Rate 54 NOTE: For -[place] individuals, multiply the result by 1.210. Chronic [...] Panel Reviewed date:08/18/2024 12:35:19 PM Interpretation: Performing Lab:[facility], [address] [place] [phone] Notes/Report: Triglycerides 84 <150 mg/dL Desirable Triglyceride: [...] (Free>4and<10) Reviewed date:08/18/2024 12:34:12 PM Interpretation: Performing Lab:[facility], [address] [place] [phone] Notes/Report: PSA,Total (Free>4and<10) 3.01 0.00-4.00 ng/mL A [...] Reviewed date:09/18/2024 10:17:51 AM Interpretation:[place]IDE[place] 09/15 Performing Lab:[facility], [address] [place] [phone] Notes/Report: Urine, Clean Catch Color Urine Yellow Appearance Urine Clear PH 6.0 5.0-9.0 Glucose Urine UA Negative Negative mg/dL Urine Blood Large (3+) Negative Specific [place] - Urine 1.015 1.005-1.025 Urine Protein 300 [...] Guaiac Neg INR WHOLE BLOOD POC Reviewed date:02/22/2024 04:09:09 PM Interpretation: Performing Lab:[facility], [address] [place] [phone] Notes/Report: PT, INR - [facility] 2.4 0.9-1.1 METER #: [id number] INTERNATIONAL NORMALIZED RATIO (INR) REFERENCE RANGES Reference [...] OC Reviewed date:02/22/2024 04:09:18 PM Interpretation: Performing Lab:[facility], [address] [place] [phone] Notes/Report: Prothrombin Time Whole Bld POC 29.0 11.1-13.5 sec INR WHOLE BLOOD POC Reviewed date:03/07/2024 08:39:49 AM Interpretation: Performing Lab:[facility], [address] [place] [phone] Notes/Report: PT, INR - [facility] 2.9 0.9-1.1 METER #: [id number] INTERNATIONAL NORMALIZED RATIO (INR) REFERENCE RANGES Reference [...] OC Reviewed date:03/07/2024 09:05:49 AM Interpretation: Performing Lab:[facility], [address] [place] [phone] Notes/Report: Prothrombin Time Whole Bld POC 34.7 11.1-13.5 sec INR WHOLE BLOOD POC Reviewed date:03/20/2024 12:28:11 PM Interpretation: Performing Lab:[facility], [address] [place] [phone] Notes/Report: PT, INR - [facility] 1.6 0.9-1.1 METER #: [id number] INTERNATIONAL NORMALIZED RATIO (INR) REFERENCE RANGES Reference [...] OC Reviewed date:03/20/2024 12:42:31 PM Interpretation: Performing Lab:[address] [phone] Notes/Report: Prothrombin Time Whole Bld POC 19.8 11.1-13.5 sec INR WHOLE BLOOD POC Reviewed date:03/27/2024 12:30:25 PM Interpretation: Performing Lab:[address] [phone] Notes/Report: PT, INR - [facility] 2.8 0.9-1.1 METER #: [id number] INTERNATIONAL NORMALIZED RATIO (INR) REFERENCE RANGES Reference [...] OC Reviewed date:03/27/2024 12:30:36 PM Interpretation: Performing Lab:[facility], [address] [place] [phone] Notes/Report: Prothrombin Time Whole Bld POC 33.3 11.1-13.5 sec INR WHOLE BLOOD POC Reviewed date:04/10/2024 12:14:57 PM Interpretation: Performing Lab:[facility], [address] [place] [phone] Notes/Report: PT, INR - [facility] 2.7 0.9-1.1 METER #: [id number] INTERNATIONAL NORMALIZED RATIO (INR) REFERENCE RANGES Reference [...] OC Reviewed date:04/10/2024 12:15:04 PM Interpretation: Performing Lab:[facility], [address] [place] [phone] Notes/Report: Prothrombin Time Whole Bld POC 32.4 11.1-13.5 sec INR WHOLE BLOOD POC Reviewed date:05/01/2024 12:32:42 PM Interpretation: Performing Lab:[facility], [address] [place] [phone] Notes/Report: PT, INR - [facility] 2.0 0.9-1.1 METER #: [id number] INTERNATIONAL NORMALIZED RATIO (INR) REFERENCE RANGES Reference [...] OC Reviewed date:05/01/2024 10:34:31 AM Interpretation: Performing Lab:[facility], [address] [place] [phone] Notes/Report: Prothrombin Time Whole Bld POC 24.5 11.1-13.5 sec INR WHOLE BLOOD POC Reviewed date:05/22/2024 12:40:03 PM Interpretation: Performing Lab:[facility], [address] [place] [phone] Notes/Report: PT, INR - [facility] 2.1 0.9-1.1 METER #: [id number] INTERNATIONAL NORMALIZED RATIO (INR) REFERENCE RANGES Reference [...] OC Reviewed date:05/22/2024 12:39:55 PM Interpretation: Performing Lab:[facility], [address] [place] [phone] Notes/Report: Prothrombin Time Whole Bld POC 25.0 11.1-13.5 sec INR WHOLE BLOOD POC Reviewed date:06/15/2024 12:12:03 PM Interpretation: Performing Lab:[facility], [address] [place] [phone] Notes/Report: PT, INR - [facility] 3.1 0.9-1.1 METER #: [id number] INTERNATIONAL NORMALIZED RATIO (INR) REFERENCE RANGES Reference [...] OC Reviewed date:06/15/2024 12:18:03 PM Interpretation: Performing Lab:[facility], [address] [place] [phone] Notes/Report: Prothrombin Time Whole Bld POC 37.5 11.1-13.5 sec INR WHOLE BLOOD POC Reviewed date:07/10/2024 08:22:11 AM Interpretation: Performing Lab:[facility], [address] [place] [phone] Notes/Report: PT, INR - [facility] 2.9 0.9-1.1 METER #: [id number] INTERNATIONAL NORMALIZED RATIO (INR) REFERENCE RANGES Reference [...] OC Reviewed date:07/10/2024 10:33:10 AM Interpretation: Performing Lab:[facility], [address] [place] [phone] Notes/Report: Prothrombin Time Whole Bld POC 34.9 11.1-13.5 sec INR WHOLE BLOOD POC Reviewed date:08/07/2024 12:29:32 PM Interpretation: Performing Lab:[address] [phone] Notes/Report: PT, INR - [facility] 3.4 0.9-1.1 METER #: [id number] INTERNATIONAL NORMALIZED RATIO (INR) REFERENCE RANGES Reference [...] OC Reviewed date:08/07/2024 12:28:11 PM Interpretation: Performing Lab:[facility], [address] [place] [phone] Notes/Report: Prothrombin Time Whole Bld POC 41.1 11.1-13.5 sec INR WHOLE BLOOD POC Reviewed date:08/21/2024 07:00:30 PM Interpretation: Performing Lab:[facility], [address] [place] [phone] Notes/Report: PT, INR - [facility] 2.0 0.9-1.1 METER #: [id number] INTERNATIONAL NORMALIZED RATIO (INR) REFERENCE RANGES Reference [...] OC Reviewed date:08/21/2024 07:02:24 PM Interpretation: Performing Lab:[facility], [address] [place] [phone] Notes/Report: Prothrombin Time Whole Bld POC 24.1 11.1-13.5 sec INR WHOLE BLOOD POC Reviewed date:09/18/2024 12:40:45 PM Interpretation: Performing Lab:[facility], [address] [place] [phone] Notes/Report: PT, INR - [facility] 2.0 0.9-1.1 METER #: [id number] INTERNATIONAL NORMALIZED RATIO (INR) REFERENCE RANGES Reference [...] OC Reviewed date:09/18/2024 12:44:30 PM Interpretation: Performing Lab:[facility], [address] [place] [phone] Notes/Report: Prothrombin Time Whole Bld POC 23.9 11.1-13.5 sec INR WHOLE BLOOD POC Reviewed date:10/16/2024 09:52:45 AM Interpretation: Performing Lab:[facility], [address] [place] [phone] Notes/Report: PT, INR - [facility] 3.6 0.9-1.1 METER #: [id number] INTERNATIONAL NORMALIZED RATIO (INR) REFERENCE RANGES Reference [...] OC Reviewed date:10/16/2024 09:52:53 AM Interpretation: Performing Lab:[facility], [address] [place] [phone] Notes/Report: Prothrombin Time Whole Bld POC 43.8 11.1-13.5 sec INR WHOLE BLOOD POC Reviewed date:11/07/2024 04:28:35 PM Interpretation: Performing Lab:[facility], [address] [place] [phone] Notes/Report: PT, INR - [facility] 4.4 0.9-1.1 METER #: [id number] INTERNATIONAL NORMALIZED RATIO (INR) REFERENCE RANGES Reference [...] Prothrombin Time Whole Bld P OC Reviewed date:11/07/2024 04:28:26 PM Interpretation: Performing Lab:[facility], [address] [place] [phone] Notes/Report: Prothrombin Time Whole Bld POC 52.3 11.1-13.5 sec INR WHOLE BLOOD POC Reviewed date:11/22/2024 05:40:44 PM Interpretation: Performing Lab:[facility], [address] [place] [phone] Notes/Report: PT, INR - [facility] 1.5 0.9-1.1 METER #: [id number] Doctor Notified INTERNATIONAL NORMALIZED RATIO (INR) REFERENCE [...] Prothrombin Time Whole Bld P OC Reviewed date:11/22/2024 05:40:26 PM Interpretation: Performing Lab:[facility], [address] [place] [phone] Notes/Report: Prothrombin Time Whole Bld POC 17.8 11.1-13.5 sec INR WHOLE BLOOD POC Reviewed date:11/24/2024 12:39:31 PM Interpretation: Performing Lab:[facility], [address] [place] [phone] Notes/Report: PT, INR - [facility] 2.6 0.9-1.1 METER #: [id number] INTERNATIONAL NORMALIZED RATIO (INR) REFERENCE RANGES Reference [...] Prothrombin Time Whole Bld P OC Reviewed date:11/24/2024 12:35:01 PM Interpretation: Performing Lab:[facility], [address] [place] [phone] Notes/Report: Prothrombin Time Whole Bld POC 30.8 11.1-13.5 sec INR WHOLE BLOOD POC Reviewed date:12/11/2024 11:04:14 AM Interpretation: Performing Lab:[facility], [address] [place] [phone] Notes/Report: PT, INR - [facility] 3.2 0.9-1.1 METER #: [id number] INTERNATIONAL NORMALIZED RATIO (INR) REFERENCE RANGES Reference [...] Prothrombin Time Whole Bld P OC Reviewed date:12/11/2024 12:37:20 PM Interpretation: Performing Lab:[facility], [address] [place] [phone] Notes/Report: Prothrombin Time Whole Bld POC 38.2 11.1-13.5 sec INR WHOLE BLOOD POC Reviewed date:01/01/2025 12:32:57 PM Interpretation: Performing Lab:[facility], [address] [place] [phone] Notes/Report: PT, INR - [facility] 4.6 0.9-1.1 METER #: [id number] INTERNATIONAL NORMALIZED RATIO (INR) REFERENCE RANGES Reference [...] Prothrombin Time Whole Bld P OC Reviewed date:01/01/2025 12:33:05 PM Interpretation: Performing Lab:[facility], [address] [place] [phone] Notes/Report: Prothrombin Time Whole Bld POC 54.9 11.1-13.5 sec INR WHOLE BLOOD POC Reviewed date:01/08/2025 12:19:34 PM Interpretation: Performing Lab:[facility], [address] [place] [phone] Notes/Report: PT, INR - [facility] 1.4 0.9-1.1 METER #: [id number] INTERNATIONAL NORMALIZED RATIO (INR) REFERENCE RANGES Reference [...] Prothrombin Time Whole Bld P OC Reviewed date:01/08/2025 12:19:26 PM Interpretation: Performing Lab:[facility], [address] [place] [phone] Notes/Report: Prothrombin Time Whole Bld POC 16.7 11.1-13.5 sec INR WHOLE BLOOD POC Reviewed date:01/15/2025 08:45:45 AM Interpretation: Performing Lab:[facility], [address] [place] [phone] Notes/Report: PT, INR - [facility] 2.0 0.9-1.1 METER #: [id number] INTERNATIONAL NORMALIZED RATIO (INR) REFERENCE RANGES Reference [...] Prothrombin Time Whole Bld P OC Reviewed date:01/15/2025 08:45:37 AM Interpretation: Performing Lab:[facility], [address] [place] [phone] Notes/Report: Prothrombin Time Whole Bld POC 23.9 11.1-13.5 sec INR WHOLE BLOOD POC Reviewed date:02/07/2025 04:59:10 PM Interpretation: Performing Lab:[facility], [address] [place] [phone] Notes/Report: PT, INR - [facility] 3.1 0.9-1.1 METER #: [id number] INTERNATIONAL NORMALIZED RATIO (INR) REFERENCE RANGES Reference [...] Prothrombin Time Whole Bld P OC Reviewed date:02/07/2025 04:59:01 PM Interpretation: Performing Lab:[facility], [address] [place] [phone] Notes/Report: Prothrombin Time Whole Bld POC 37.7 11.1-13.5 sec Reason For Referral No Information [...] BY MOUTH EVERY DAY for 90 Active Rosuvastatin Calcium 40 MG TAKE 1 TABLET BY MOUTH EVERY DAY Active amLODIPine Besylate 10 MG TAKE 1 TABLET BY MOUTH EVERY DAY Active Levothyroxine Sodium 150 MCG TAKE 1 TABL ET BY MOUTH EVERY MORNING ON AN EMPTY STOMACH Orally Once a day Active Warfarin Sodium 5 MG TAKE 2 TABLETS ON WEDNESDAY, WEDNESDAY, WEDNESDAY, TAKE 2.5 TABLETS ON OTHER DAYS ORALLY ONCE A DAY 90 DAYS Active Immunizations Vaccine Route Administration Date Status [...] Problem Status W/U Status Risk Notes Problem 66496141 Prostatism (N40.0) Active confirmed Problem 71409274 Essential (prima ry) hypertension (I10) Active confirmed Problem 763300959345184 Erectile dysfunc tion due to arterial insufficiency (N52.01) Active confirmed Problem 0920185 Psoriasis (L40.9) Active confirmed Problem 904890866 Acquired hypothyroidism (E03.9) Active confirmed Problem 777459401 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) Active confirmed Problem 50726859 Alcohol abuse (F10.10) Active confirme d Problem 21464216 Heart murmur (R01.1) Active confirmed Problem 16062075 RBBB (I45.10) Active confirmed Problem 352319724 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) Active confirmed Problem 14846209 Chronic renal fa ilure, stage 3 (moderate) (N18.3) Active confirmed Problem 805549478 Pure hypercholesterolemia (E78.00) Active confirmed Problem 289755901 Other cardiac arrhythmia (I49.8) Active confirmed Problem 25653676576935 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) Active confirmed Problem 2581049629033699 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) Active confirmed Problem 070584958 Age-related inci pient cataract of both eyes (H25.093) Active confirmed Problem 005440094 Chronic kidney d isease (CKD) stage G1/A2, glomerular filtration rate (GFR) equal to or greater than 90 mL/min/1.73 square meter and albuminuria creatinine ratio between 30-299 mg/g (N18.1) Active confirmed Vital Signs Blood pressure diastolic 70 mm Hg 11/13/2024 sonja ght is up 13 pounds vilma 09-15-24 Height 71.5 in 11/13/2024 weight is up 13 pounds vilma 09-15-24 Blood pressure systolic 182 mm Hg 11/13/2024 weig ht is up 13 pounds vilma 09-15-24 Weight 266 lbs 11/13/2024 weight is up 13 pounds vilma 09-15-24 BMI 36.58 kg/m2 11/13/2024 weight is up 13 pounds vilma 09-15-24 Encounters Encounter Location Date Provider Diagnosis Teto Gary MD [address] [place], [place] [id number] 08/18/2024 Teto Gary Blood tests for rout ine general physical examination Z00.00 ; Essential (primary) hypertension I10 ; Pure hypercholesterolemia E78.00 ; Chronic kidney disease (CKD) stage G1/A2, glomerular filtration rate (GFR) equal to or greater than 90 mL/min/1.73 square meter and albuminuria creatinine ratio between 30-299 mg/g N18.1 and Prostatism N40.0 Teto Gary MD [address] [place] [id number] 02/29/2024 Teto Gary Arthritis of both kn ees M17.0 ; Pure hypercholesterolemia E78.00 ; Alcohol abuse F10.10 and Essential (primary) hypertension I10 Teto Gayr MD [address] [place] [id number] 09/15/2024 Teto Gary Left inguinal hernia K40.90 ; Annual physical exam Z00.00 ; Mechanical heart valve present Z95.2 ; Essential (primary) hypertension I10 ; Microscopic hematuria R31.29 ; Prostatism N40.0 ; Pure hypercholesterolemia E78.00 ; Acquired hypothyroidism E03.9 ; Colon cancer screening Z12.11 and Depression screening Z13.31 Teto Gary MD [address] [place] [id number] 11/13/2024 Teto Gary Mechanical heart mary ve present Z95.2 ; Mild dementia without behavioral disturbance, psychotic disturbance, mood disturbance, or anxiety, unspecified dementia type F03.A0 and Heme positive stool R19.5 T[address] Gary MD [address] [place] [id number] 03/07/2024 Teto Gary Essential (primary) hypertension I10 and Mechanical heart valve present Z95.2 Teto Gary MD [address] [place] [id number] 03/09/2024 Teto Gary MD [address] [place] [id number] 10/27/2024 Teto Gary MD [address] [place] [id number] 01/08/2025 Teto Gary Assessments Encounter Date Diagnosis (ICD Code) Assessment Notes Treatment Notes Treatment Clinical Notes Section Notes 08/18/[address] ine general physical examination (ICD-10 - Z00.00) 08/18/2024 Essential (primary) hypertension (ICD-10 - I10) 02/29/2024 Arthritis of both kn ees (ICD-10 [...] Z00.00) labs reviewed and discussed with patient 11/13/2024 Mechanical heart mary ve present (ICD-10 - Z95.2) daughter is going to see if dr braga will see him/ 11/13/2024 Mild dementia withou t behavioral disturbance, psychotic disturbance, mood disturbance, or anxiety, unspecified dementia type (ICD-10 - F03.A0) at the present time he doesn't want to do anything. will consider mri in future 03/07/2024 Essential (primary) hypertension (ICD-10 - I10) 08/18/2024 Pure hypercholesterolemia (ICD-10 - E78.00) 02/29/2024 Alcohol abuse (ICD-1 0 - F10.10) doing well at present, will continue to monitor 09/15/2024 Mechanical heart mary ve present (ICD-10 - Z95.2) unable to hear murmer today 11/13/2024 Heme positive stool (ICD-10 - R19.5) is going to go to cardiology and then get a colonoscopy 03/07/2024 Mechanical heart mary ve present (ICD-10 [...] 06/26/2021 Next Appt Details Provider Name:Teto kaye, 03/09/2025 07:15:00 AM, [address] [place] [address], [address], [phone], Provider Name:Teto kaye, 03/19/2025 01:30:00 PM, [address] [place] [address], [address], [phone], Provider Name:Teto kaye, 09/13/2025 07:30:00 AM, [address] [place] [address], [address], [phone], Provider Name:Teto kaye, 09/20/2025 01:00:00 PM, [address] [place] [address], [address], [phone], Insurance Providers Payer Name Payer Address Payer Phone Subscriber Number Group Number Insured Name Patient Relationship to Insured Coverage Start Date Coverage End Date [employer] MED[employer]ARE ADVANTAGE [address] [place] [id number] LAVERN LIVINGSTON Self - patient is the [...]
--- OUTSIDE RECORDS SUMMARY | 2025-02-19 08:31 | XMS_ITS | Clinical Summary ---
Author Organization [facility] Address [address] [facility] [address] [place] [address] Phone Care Team Providers Care Aegis Console Operator Track Name Role Phone Teto Gary MD Primary [...] this topic Insurance Aetna MCR Adv PPO ([id number]) Aetna MCR Adv PPO ([id number]) Care Teams Aegis Console Operator Track Relationship Specialty Start Date End Date Teto Gary MD [address] [place] [address] [id number] [place], [place] PCP - General 10/21/20
--- OUTSIDE RECORDS SUMMARY | 2025-02-19 08:31 | XMS_ITS ---
Author Organization Teto Gary MD Address [address] [place], [place] [phone] Care Team Providers Care Street Car Mechanic Name Role Phone Cookie Teto Primary Care Provider [phone] REASON FOR VISIT FYI INR results Encounters Encounter Location Date Provider Diagnosis Teto Gary MD [address] [facility] [address] [place] [id number] 01/08/2025 Teto Gary Plan Of Treatment Next Appt Details Provider Name:Teto Sky ier, 03/09/2025 07:15:00 AM, [address] [place] [address], Suite [facility], [place], [place], [phone], Provider Name:Teto Sky ier, 03/19/2025 01:30:00 PM, [address] [place] [address], [address] [facility], [place], [place], [phone], Provider Name:Teto Sky ier, 09/13/2025 07:30:00 AM, [address] [place] [address], [address] [facility], [place], [place], [phone], Provider Name:Teto kaye, 09/20/2025 01:00:00 PM, [address] [facility] [address], [address], [place], [place], [phone], Progress Notes * LAVERN LIVINGSTON RDOB:1950 (74 yo M)Acc No.[id number]:01/08/2025 Patient:?LAVERN LIVINGSTON :1950???Age:74 Y???Sex:Male Address:[address] [place] [address] [place], [address] * true * Date:? Generated for Raffaele lara/Aminta/eTransmitting on:?02/19/2025 08:31 AM EDT
--- OUTSIDE RECORDS SUMMARY | 2025-02-19 08:32 | XMS_ITS ---
Author Organization Teto Gary MD Address [address] [place], [place] [phone] Care Team Providers Care Central Supply Clerk Name Role Phone Cookie Teto Primary Care Provider [phone] REASON FOR VISIT ER Visit rec'd Encounters Encounter Location Date Provider Diagnosis Teto Gary MD [facility] [address] [place] [id number] 10/27/2024 Teto Gary Plan Of Treatment Next Appt Details Provider Name:Teto pastorr, 03/09/2025 07:15:00 AM, [address] [place] [address], Suite [facility], [place], [place], [phone], Provider Name:Teto kaye, 03/19/2025 01:30:00 PM, [address] [place] [address], [place] [address], [place], [place], [phone], Provider Name:Teto kaye, 09/13/2025 07:30:00 AM, [address] [place] [address], Suite [facility], [place], [place], [phone], Provider Name:Teto kaye, 09/20/2025 01:00:00 PM, [address] [facility] [address], [address], [place], [place], [phone], Progress Notes * LAVERN LIVINGSTON RDOB:1950 (74 yo M)Acc No.[id number]:10/27/2024 Patient:?LAVERN LIVINGSTON :1950???Age:74 Y???Sex:Male Address:[address] [place] [address] [place], [address] * true * Date:? Generated for Raffaele lara/Aminta/eTransmitting on:?02/19/2025 08:31 AM EDT
--- OUTSIDE RECORDS SUMMARY | 2025-02-19 08:32 | XMS_ITS ---
Author Organization Teto Gary MD Address [address] [place], [place] [phone] Care Team Providers Care Filling Room Operator Name Role Phone Teto Gary Primary Care Provider [phone] Allergies Allergen (clinical drug ingredient) Drug/Non Drug Allergy documented on EMR Reaction Allergy Type Onset Date Status diphenhydramine Benadryl Unknown Drug Allergy A ctive REASON FOR VISIT was seen at [facility] for hernia, has already seen the [...] Date Provider Diagnosis Teto Gary MD [address] [place], [place] [phone] 11/13/2024 Teto Gary Mechanical heart valve present [...] Provider Name:Teto kaye, 03/09/2025 07:15:00 AM, [address] [facility], [address], [place], [place], [phone], Provider Name:Teto kaye, 03/19/2025 01:30:00 PM, [address], [address], [place], [place], [phone], Provider Name:Teto Sky ier, 09/13/2025 07:30:00 AM, [address], [address], [place], [phone], Provider Name:Teto Sky ier, 09/20/2025 01:00:00 PM, [address], [address], [place], [phone], Progress Notes * MIKI LAVERN RDOB:1950 (74 yo M)Acc No.[id number]:11/13/2024 Progress Notes Patient:?LAVERN LIVINGSTON Provider:?Teto Gary MD :1950???Age:74 Y???Sex:Male Jacky e:11/13/2024 Address:[address] [place] [address], [id number] Subjective: * Chief Complaints: * ???was seen at [facility] for he rnia, has already seen [...] concerned that he is not seeing a senior product engineer at present. memory has been bad for [...] Objective: * Vitals:?Ht: 71.5, Wt: 266, B MN:36.58, BP:182/70, Repeat BP:155/70, Wt-k.66. weight is up [...] MD Date:?0 11/13/2024 Generated for Raffaele lara/Aminta/eTciprianosmitting on:?02/19/2025 08:31 AM EDT History and Physical Notes * [...] concerned that he is not seeing a senior product engineer at present. memory has been bad for [...]
[2025-02-19 08:34] LABS: Prothrombin Time Whole Bld POC 34.3 sec (11.1-13.5); ~PT, ~INR - Anti Coag Clinic 2.9 (0.9-1.1)
--- NOTE | 2025-02-19 08:38 | MHC.OFFVISCO ---
Intake Intake Visit Reasons: Anticoagulation Allergies diphenhydramine [From BENADRYL] Allergy (Intermediate, Verified 02/19/25 08:29) RESTLESS LEGS lisinopril [LISINOPRIL] Allergy (Intermediate, Verified 02/19/25 08:29) DIZZINESS Lisiopril/HCTZ Allergy (Unknown, Uncoded 02/19/25 08:29) dizziness Medication List - Last Reconciled 02/19/25 by Stefani Kelly RN acetaminophen 975 mg PO QID PRN amlodipine 10 mg PO DAILY docusate sodium 100 mg PO BID PRN levothyroxine 150 mcg PO DAILY losartan 25 mg PO DAILY metoprolol succinate ER 50 mg PO DAILY polyethylene glycol 3350 (Gavilax) 17 grams PO DAILY rosuvastatin 40 mg PO DAILY tamsulosin (Flomax) 0.4 mg PO DAILY warfarin 5 mg See Protocol PO DAILY Nursing Note INR: 2.9 in therapeutic range of 2-3 Medications and supplements reviewed No changes in health, diet, medications, or supplements, Denies any signs and symptoms of bleeding or bruising or clotting. Bleeding, bruising, clotting discussed Nutritional guidance given Dose: 10mg X 6 days and 7.5mg X 1 day (Mon) F/U INR: 3 weeks Patient verbalizes understanding of instructions given Coding Level of Care Code Est Patient Level 1 Diagnoses Current use of anticoagulant therapy Z79.01 Assessment & Plan Assessment & Plan (1) Current use of anticoagulant therapy: Code(s): Z79.01 - intermediate (current) 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
== END 2025-02-19 08:39 | disposition home or self-care (01) ==
LOC: HO.ACS 08:28
PROVIDERS: PCP Internal Medicine; Visit Provider Internal Medicine Medical Oncology
DX: Z79.01 Long term (current) use of anticoagulants (principal)

== ENCOUNTER → 2025-02-19 08:28 | Outpatient (BNVA) | payer MEDICARE, MEDICAID, SELFPAY | PROVIDERS: PCP Internal Medicine; Visit Provider Internal Medicine Medical Oncology | DX: Z95.2 Presence of prosthetic heart valve (principal); Z79.01 Long term (current) use of anticoagulants; Z51.81 Encounter for therapeutic drug level monitoring | CPT/HCPCS: 85610; 99211 ==

== ENCOUNTER 2025-03-09 11:45 | Outpatient (REF) | payer MEDICARE, MEDICAID, SELFPAY ==
[2025-03-09 12:11] LABS: Alanine Aminotransferase 19 U/L (0-40); Albumin Level 4.1 g/dL (3.5-5.0); Alkaline Phosphatase 66 U/L (39-117); Aspartate Amino Transferase 27 U/L (5-37); Bilirubin Direct 0.3 mg/dL (0.0-0.5); Bilirubin Total 0.8 mg/dL (0.0-1.0); Cholesterol 177 mg/dL (<200); HDL Cholesterol 77 mg/dL (>40); LDL Cholesterol Calculated 85 mg/dL (<100); Total Protein 7.1 g/dL (6.5-8.0); Triglycerides 79 mg/dL (<150)
--- OUTSIDE RECORDS SUMMARY | 2025-03-09 12:38 | XMS_ITS | Clinical Summary ---
Author Organization [facility] Address [address] [facility] [address] [place] [address] Phone Care Team Providers Care Coagulating Operator Name Role Phone Teto Gary MD Primary [...] this topic Insurance [employer] MCR Adv PPO ([phone]) [employer] MCR Adv PPO ([phone]) Care Teams Coagulating Operator Relationship Specialty Start Date End Date Teto Gary MD [address] [place] [address] [id number] [place], [place] PCP - General 10/21/20
[2025-03-09 13:43] LABS: Reflex LDLD? No
== END 2025-03-09 11:46 | disposition home or self-care (01) ==
LOC: HO.LNP 11:45
PROVIDERS: Visit Provider Internal Medicine
DX: E78.00 Pure hypercholesterolemia, unspecified (principal)
CPT/HCPCS: 80061; 80076

== ENCOUNTER 2025-03-12 08:15 | Outpatient (AMB) | payer MEDICARE, MEDICAID, SELFPAY ==
--- OUTSIDE RECORDS SUMMARY | 2025-03-12 08:23 | XMS_ITS | Clinical Summary ---
Author Organization [facility] Address [address] [facility] [address] [place] [address] Phone Care Team Providers Care Intake Man Name Role Phone Teto Gary MD Primary [...] this topic Insurance [employer] MCR Adv PPO ([phone]) [employer] MCR Adv PPO ([phone]) Care Teams Intake Man Relationship Specialty Start Date End Date Teto Gary MD [address] [place] [address] [address] [place], [place] PCP - General 10/21/20
[2025-03-12 08:24] LABS: Prothrombin Time Whole Bld POC 27.8 sec (11.1-13.5); ~PT, ~INR - Anti Coag Clinic 2.3 (0.9-1.1)
--- NOTE | 2025-03-12 08:26 | MHC.OFFVISCO ---
Intake Intake Visit Reasons: Anticoagulation Allergies diphenhydramine [From BENADRYL] Allergy (Intermediate, Verified 03/12/25 08:19) RESTLESS LEGS lisinopril [LISINOPRIL] Allergy (Intermediate, Verified 03/12/25 08:19) DIZZINESS Lisiopril/HCTZ Allergy (Unknown, Uncoded 03/12/25 08:19) dizziness Medication List - Last Reconciled 03/12/25 by Stefani Kelly RN acetaminophen 975 mg PO QID PRN amlodipine 10 mg PO DAILY docusate sodium 100 mg PO BID PRN levothyroxine 150 mcg PO DAILY losartan 25 mg PO DAILY metoprolol succinate ER 50 mg PO DAILY polyethylene glycol 3350 (Gavilax) 17 grams PO DAILY rosuvastatin 40 mg PO DAILY tamsulosin (Flomax) 0.4 mg PO DAILY warfarin 5 mg See Protocol PO DAILY Nursing Note INR: 2.3 in therapeutic range of 2-3 Medications and supplements reviewed No changes in health, diet, medications, or supplements, Denies any signs and symptoms of bleeding or bruising or clotting. Bleeding, bruising, clotting discussed Nutritional guidance given Dose: 10mg X 6 days and 7.5mg X 1 day F/U INR: 3 weeks Patient verbalizes understanding of instructions given Coding Level of Care Code Est Patient Level 1 Diagnoses Current use of anticoagulant therapy Z79.01 Assessment & Plan Assessment & Plan (1) Current use of anticoagulant therapy: Code(s): Z79.01 - USP (current) 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
== END 2025-03-12 08:28 | disposition home or self-care (01) ==
LOC: HO.ACS 08:15
PROVIDERS: PCP Internal Medicine; Visit Provider Internal Medicine Medical Oncology
DX: Z79.01 Long term (current) use of anticoagulants (principal)

== ENCOUNTER → 2025-03-12 08:15 | Outpatient (BNVA) | payer MEDICARE, MEDICAID, SELFPAY | PROVIDERS: PCP Internal Medicine; Visit Provider Internal Medicine Medical Oncology | DX: Z95.2 Presence of prosthetic heart valve (principal); Z79.01 Long term (current) use of anticoagulants; Z51.81 Encounter for therapeutic drug level monitoring | CPT/HCPCS: 85610; 99211 ==

== ENCOUNTER 2025-04-02 07:54 | Outpatient (AMB) | payer MEDICARE, MEDICAID, SELFPAY ==
--- OUTSIDE RECORDS SUMMARY | 2025-04-02 07:57 | XMS_ITS | Clinical Summary ---
Author Organization [facility] Address [address] [facility] [address] [place] [address] Phone Care Team Providers Care Imaging Analyst Name Role Phone Teto Gary MD Primary [...] this topic Insurance [employer] MCR Adv PPO ([id number]) Aetna MCR Adv PPO ([id number]) Care Teams Imaging Analyst Relationship Specialty Start Date End Date Teto Gary MD [address] [place] [address] [address] [place], [place] PCP - General 10/21/20
[2025-04-02 08:02] LABS: Prothrombin Time Whole Bld POC 52.3 sec (11.1-13.5); ~PT, ~INR - Anti Coag Clinic 4.4 (0.9-1.1)
--- NOTE | 2025-04-02 08:09 | MHC.OFFVISCO ---
Intake Intake Visit Reasons: Anticoagulation Allergies diphenhydramine (From BENADRYL) Allergy (Intermediate, Verified 04/02/25 07:55) RESTLESS LEGS lisinopril (LISINOPRIL) Allergy (Intermediate, Verified 04/02/25 07:55) DIZZINESS Lisiopril/HCTZ Allergy (Unknown, Uncoded 04/02/25 07:55) dizziness Medication List - Last Reconciled 04/02/25 by Nicole Mercado RN acetaminophen 975 mg PO QID PRN amlodipine 10 mg PO DAILY docusate sodium 100 mg PO BID PRN levothyroxine 150 mcg PO DAILY losartan 25 mg PO DAILY metoprolol succinate ER 50 mg PO DAILY rosuvastatin 40 mg PO DAILY tamsulosin (Flomax) 0.4 mg PO DAILY warfarin 5 mg See Protocol PO DAILY Nursing Note INR 4.4? out of therapeutic range Medications and supplements reviewed Patient status: Knee pain and tylenol, daughter ill -stress, perhaps not enough: greens, water, protein Medications or supplements: no chnages Diet: changes during the heat Denies any signs and symptoms of bleeding or clotting or unusual bruising Bleeding, bruising, clotting discussed Nutritional guidance given: greens water protein- extra greens with tyelnol Dose: 5mg today and spinach water meat F/U INR Date: 1 week ?? Patient verbalizing understanding of instructions given. Coding Level of Care Code Est Patient Level 1 Diagnoses Current use of anticoagulant therapy Z79.01 Results AMB INR Fingerstick AMB INR Fingerstick 4.4 Last Edit by Nicole Mercado RN on 04/02/25 08:03 manual entry Assessment & Plan Assessment & Plan (1) Current use of anticoagulant therapy: Code(s): Z79.01 - longterm (current) 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
== END 2025-04-02 08:12 | disposition home or self-care (01) ==
LOC: HO.ACS 07:54
PROVIDERS: PCP Internal Medicine; Visit Provider Internal Medicine Medical Oncology
DX: Z79.01 Long term (current) use of anticoagulants (principal)

== ENCOUNTER → 2025-04-02 07:54 | Outpatient (BNVA) | payer MEDICARE, MEDICAID, SELFPAY | PROVIDERS: PCP Internal Medicine; Visit Provider Internal Medicine Medical Oncology | DX: Z95.2 Presence of prosthetic heart valve (principal); Z79.01 Long term (current) use of anticoagulants; Z51.81 Encounter for therapeutic drug level monitoring | CPT/HCPCS: 85610; 99211 ==

== ENCOUNTER 2025-04-09 08:00 | Outpatient (AMB) | payer MEDICARE, MEDICAID, SELFPAY ==
--- OUTSIDE RECORDS SUMMARY | 2025-04-09 08:01 | XMS_ITS | Clinical Summary ---
Author Organization [facility] Address [address] [facility] [address] [place] [address] Phone Care Team Providers Care Joy Operator Name Role Phone Teto Gary MD [...] this topic Insurance [employer] MCR Adv PPO ([id number]) Aetna MCR Adv PPO ([id number]) Care Teams Joy Operator Relationship Specialty Start Date End Date Teto Gary MD [address] [place] [address] [address] [place], [place] PCP - General 10/21/20
[2025-04-09 08:24] LABS: Prothrombin Time Whole Bld POC 24.2 sec (11.1-13.5)
--- NOTE | 2025-04-09 08:31 | MHC.OFFVISCO ---
Intake Intake Visit Reasons: Anticoagulation Allergies diphenhydramine (From BENADRYL) Allergy (Intermediate, Verified 04/09/25 08:18) RESTLESS LEGS lisinopril (LISINOPRIL) Allergy (Intermediate, Verified 04/09/25 08:18) DIZZINESS Lisiopril/HCTZ Allergy (Unknown, Uncoded 04/09/25 08:18) dizziness Medication List - Last Reconciled 04/09/25 by Nicole Mercado RN acetaminophen 975 mg PO QID PRN amlodipine 10 mg PO DAILY docusate sodium 100 mg PO BID PRN levothyroxine 150 mcg PO DAILY losartan 25 mg PO DAILY metoprolol succinate ER 50 mg PO DAILY rosuvastatin 40 mg PO DAILY tamsulosin (Flomax) 0.4 mg PO DAILY warfarin 5 mg See Protocol PO DAILY Nursing Note INR: 2.0 in therapeutic range Medications and supplements reviewed c/o hip, legs and knee pain bilat - enc to call md - and call [facility] with any med changes - he has been taking tylenol daily and warfarin dose was decreased to accomodate the tylenol Denies any signs and symptoms of bleeding or bruising or clotting. 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
== END 2025-04-09 08:38 | disposition home or self-care (01) ==
LOC: HO.ACS 08:00
PROVIDERS: PCP Internal Medicine; Visit Provider Internal Medicine Medical Oncology
DX: Z79.01 Long term (current) use of anticoagulants (principal)

== ENCOUNTER → 2025-04-09 08:00 | Outpatient (BNVA) | payer MEDICARE, MEDICAID, SELFPAY | PROVIDERS: PCP Internal Medicine; Visit Provider Internal Medicine Medical Oncology | DX: Z79.01 Long term (current) use of anticoagulants (principal) | CPT/HCPCS: 85610; 99211 ==

== ENCOUNTER 2025-04-16 08:05 | Outpatient (AMB) | payer MEDICARE, MEDICAID, SELFPAY ==
--- OUTSIDE RECORDS SUMMARY | 2025-03-09 03:15 | XMS_ITS ---
Author Organization Teto Gary MD Address [address] [place], [place] [phone] Care Team Providers Care Supervisor Asbestos Textile Name Role Phone Teto Gary Primary Care Provider Results Component Value Reference Range Notes Liver Panel Reviewed date:03/09/2025 04:17:25 PM Interpretation: Performing Lab:[facility], [address] [place] [phone] Notes/Report: Bilirubin Total 0.8 0.0-1.0 mg/dL Bilirubin Direct 0.3 0.0-0.5 mg/dL Aspartate Amino Transferase 27 5-37 U/L Alanine Aminotransferase 19 0-40 U/L Total Protein 7.1 6.5-8.0 g/dL Albumin Level 4.1 3.5-5.0 g/dL Alkaline Phosphatase 66 39-117 U/L Lipid Panel with Reflex Reviewed date:03/09/2025 04:17:09 PM Interpretation: Performing Lab:[facility], [address] [place] [phone] Notes/Report: Triglycerides 79 <150 mg/dL Desirable Triglyceride: [...] Location Date Provider Diagnosis Teto Gary MD [address] [place] [address] [place] [phone] 03/09/2025 Teto Gary Pure hypercholestero lemia E78.00 Assessments Encounter Date Diagnosis (ICD Code) Assessment Notes Treatment Notes Treatment Clinical Notes Section Notes 03/09/2025 Pure hypercholesterolemia (ICD-10 - E78.00) Plan Of Treatment Next Appt Details Provider Name:Teto Sky ier, 09/13/2025 07:30:00 AM, [address] [place] [address], Suite [facility], [place], [place], [phone], Provider Name:Teto Faithdebra ier, 09/20/2025 01:00:00 PM, [address] [place] [address], [place] [address], [place], [place], [phone], Progress Notes * LAVERN LIVINGSTON RDOB:1950 (74 yo M)Acc No.[id number]:03/09/2025 Progress Note Patient: LAVERN EDUARDO Provider: Naveen Gary MD :1950 A ge:74 Y S ex:Male Date:03/09/2025 Address:[address] [place], [place] [phone] Subjective: * Chief Complaints: * 1 . [...] 0 03/09/2025 Generated for Raffaele lara/Aminta/Nickitting on: 0 04/16/2025 08:10 AM EDT
--- OUTSIDE RECORDS SUMMARY | 2025-04-16 08:10 | XMS_ITS | Clinical Summary ---
Author Organization [facility] Address [address] [facility] [address] [place] [address] Phone Care Team Providers Care Security Services Manager Name Role Phone Teto Gary MD Primary [...] Cancer Screening: Sigmoidoscopy 1999 Influenza Vaccine (#1) 2025 Hepatitis B Vaccine Aged Out No longe r eligible based on patient's age to complete this topic Insurance Aetna MCR Adv PPO ([id number]) Aetna MCR Adv PPO ([id number]) Care Teams Security Services Manager Relationship Specialty Start Date End Date Teto Gary MD [address] [place] [address] [address] [place], [place] PCP - General 10/21/20
[2025-04-16 08:22] LABS: Prothrombin Time Whole Bld POC 36.0 sec (11.1-13.5); ~PT, ~INR - Anti Coag Clinic 3.0 (0.9-1.1)
--- NOTE | 2025-04-16 08:28 | MHC.OFFVISCO ---
Intake Intake Visit Reasons: Anticoagulation Allergies diphenhydramine (From BENADRYL) Allergy (Intermediate, Verified 04/16/25 08:16) RESTLESS LEGS lisinopril (LISINOPRIL) Allergy (Intermediate, Verified 04/16/25 08:16) DIZZINESS Lisiopril/HCTZ Allergy (Unknown, Uncoded 04/16/25 08:16) dizziness Medication List - Last Reconciled 04/16/25 by Stefani Kelly RN acetaminophen 975 mg PO QID PRN amlodipine 10 mg PO DAILY docusate sodium 100 mg PO BID PRN levothyroxine 150 mcg PO DAILY losartan 25 mg PO DAILY metoprolol succinate ER 50 mg PO DAILY rosuvastatin 40 mg PO DAILY tamsulosin (Flomax) 0.4 mg PO DAILY warfarin 5 mg See Protocol PO DAILY Nursing Note INR: 3.0 in therapeutic range of 2-3 Pt c/o left leg pain and has been taking tylenol 325mg 2 tabs 3-4X/day. INR went from 2.0 exactly 1 week ago to 3.0 today. Pt has an appointment with pcp today. Medications and supplements reviewed No changes in diet, medications, or supplements, Denies any signs and symptoms of bleeding or bruising or clotting. Bleeding, bruising, clotting discussed Nutritional guidance given to have a serving of greens today Dose: decrease today's (Wednesday) dose to 5mg (10mg) then decrease 's dose to 5mg (10mg). All other days will be usual dose. If anything changes after pt sees pcp and he is not taking as much tylenol, he was instructed to take his usual dose of 10mg on . 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
== END 2025-04-16 08:37 | disposition home or self-care (01) ==
LOC: HO.ACS 08:05
PROVIDERS: PCP Internal Medicine; Visit Provider Internal Medicine Medical Oncology
DX: Z79.01 Long term (current) use of anticoagulants (principal)

== ENCOUNTER → 2025-04-16 08:05 | Outpatient (BNVA) | payer MEDICARE, MEDICAID, SELFPAY | PROVIDERS: PCP Internal Medicine; Visit Provider Internal Medicine Medical Oncology | DX: Z95.2 Presence of prosthetic heart valve (principal); Z79.01 Long term (current) use of anticoagulants; Z51.81 Encounter for therapeutic drug level monitoring | CPT/HCPCS: 85610; 99211 ==

== ENCOUNTER 2025-05-04 13:39 | Outpatient (AMB) | payer MEDICARE, MEDICAID, SELFPAY ==
--- OUTSIDE RECORDS SUMMARY | 2025-03-09 03:15 | XMS_ITS ---
Author Organization Teto Gary MD Address [address] [place], [place] [phone] Care Team Providers Care Synchronous Motor Assembler Name Role Phone Teto Gary Primary Care Provider Results Component Value Reference Range Notes Liver Panel Reviewed date:03/09/2025 04:17:25 PM Interpretation: Performing Lab:[facility], [address] [place] [phone] Notes/Report: Bilirubin Total 0.8 0.0-1.0 mg/dL Bilirubin Direct 0.3 0.0-0.5 mg/dL Aspartate Amino Transferase 27 5-37 U/L Alanine Aminotransferase 19 0-40 U/L Total Protein 7.1 6.5-8.0 g/dL Albumin Level 4.1 3.5-5.0 g/dL Alkaline Phosphatase 66 39-117 U/L Lipid Panel with Reflex Reviewed date:03/09/2025 04:17:09 PM Interpretation: Performing Lab:[facility], [address] [place] [phone] Notes/Report: Triglycerides 79 <150 mg/dL Desirable Triglyceride: [...] Location Date Provider Diagnosis Teto Gary MD [address] [place] [address] [place] [phone] 03/09/2025 Teto Gary Pure hypercholestero lemia E78.00 Assessments Encounter Date Diagnosis (ICD Code) Assessment Notes Treatment Notes Treatment Clinical Notes Section Notes 03/09/2025 Pure hypercholesterolemia (ICD-10 - E78.00) Plan Of Treatment Next Appt Details Provider Name:Teto Sky ier, 09/13/2025 07:30:00 AM, [address] [place] [address], Suite [facility], [place], [place], [phone], Provider Name:Teto Faithdebra ier, 09/20/2025 01:00:00 PM, [address] [place] [address], [place] [address], [place], [place], [phone], Progress Notes * LAVERN LIVINGSTON RDOB:1950 (74 yo M)Acc No.[id number]:03/09/2025 Progress Note Patient: LAVERN EDUARDO Provider: Naveen Gary MD :1950 A ge:74 Y S ex:Male Date:03/09/2025 Address:[address] [place], [place] [phone] Subjective: * Chief Complaints: * 1 . [...] 03/09/2025 Generated for Raffaele lara/Aminta/Nickitting on: 0 05/04/2025 01:40 PM EDT
--- OUTSIDE RECORDS SUMMARY | 2025-05-04 13:41 | XMS_ITS | Clinical Summary ---
Author Organization [facility] Address [address] [facility] [address] [place] [address] Phone Care Team Providers Care Diamond Polisher Name Role Phone Teto Gary MD Primary [...] this topic Insurance A[employer]na MCR Adv PPO ([id number]) Aetna MCR Adv PPO ([id number]) Care Teams Diamond Polisher Relationship Specialty Start Date End Date Teto Gary MD [address] [place] [address] [address] [place], [place] PCP - General 10/21/20
--- NOTE | 2025-05-04 13:46 | MHC.OFFVISCO ---
Intake Intake Visit Reasons: Anticoagulation Allergies diphenhydramine (From BENADRYL) Allergy (Intermediate, Verified 05/04/25 13:43) RESTLESS LEGS lisinopril (LISINOPRIL) Allergy (Intermediate, Verified 05/04/25 13:43) DIZZINESS Lisiopril/HCTZ Allergy (Unknown, Uncoded 05/04/25 13:43) dizziness Medication List - Last Reconciled 05/04/25 by Noemi Holder RN acetaminophen 975 mg PO QID PRN amlodipine 10 mg PO DAILY docusate sodium 100 mg PO BID PRN levothyroxine 150 mcg PO DAILY losartan 25 mg PO DAILY metoprolol succinate ER 50 mg PO DAILY rosuvastatin 40 mg PO DAILY tamsulosin (Flomax) 0.4 mg PO DAILY warfarin 5 mg See Protocol PO DAILY Nursing Note INR 3.1-?? out of therapeutic range of 2-3 Medications and supplements reviewed Patient status: pt with c.o knee pain, zarate and posterior tendons- enc to notify pcp , amb with cane Medications or supplements: no changes, pt states not taking tylenol at this time Diet: getting meals on wheels Denies any signs and symptoms of bleeding or clotting or unusual bruising Bleeding, bruising, clotting discussed Nutritional guidance given: will eat greens today to lower/spinach Dose: 7.5mg x 1. 10mg x 6 F/U INR Date : 2 weeks Patient verbalizing understanding of instructions given. Coding Level of Care Code Est Patient Level 1 Diagnoses Current use of anticoagulant therapy Z79.01 Assessment & Plan Assessment & Plan (1) Current use of anticoagulant therapy: Code(s): Z79.01 - senior care (current) 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
[2025-05-04 16:23] LABS: Prothrombin Time Whole Bld POC 36.9 sec (11.1-13.5); ~PT, ~INR - Anti Coag Clinic 3.1 (0.9-1.1)
== END 2025-05-04 14:10 | disposition home or self-care (01) ==
LOC: HO.ACS 13:39
PROVIDERS: PCP Internal Medicine; Visit Provider Internal Medicine Medical Oncology
DX: Z79.01 Long term (current) use of anticoagulants (principal)

== ENCOUNTER → 2025-05-04 13:39 | Outpatient (BNVA) | payer MEDICARE, MEDICAID, SELFPAY | PROVIDERS: PCP Internal Medicine; Visit Provider Internal Medicine Medical Oncology | DX: Z95.2 Presence of prosthetic heart valve (principal); Z79.01 Long term (current) use of anticoagulants; Z51.81 Encounter for therapeutic drug level monitoring | CPT/HCPCS: 85610; 99211 ==

== ENCOUNTER 2025-05-21 08:18 | Outpatient (AMB) | payer MEDICARE, MEDICAID, SELFPAY ==
--- OUTSIDE RECORDS SUMMARY | 2025-03-09 03:15 | XMS_ITS ---
Author Organization Teto Gary MD Address [address] [place], [place] [phone] Care Team Providers Care Respiratory Scientist Name Role Phone Teto Gary Primary Care Provider Results Component Value Reference Range Notes Liver Panel Reviewed date:03/09/2025 04:17:25 PM Interpretation: Performing Lab:[facility], [address] [place] [phone] Notes/Report: Bilirubin Total 0.8 0.0-1.0 mg/dL Bilirubin Direct 0.3 0.0-0.5 mg/dL Aspartate Amino Transferase 27 5-37 U/L Alanine Aminotransferase 19 0-40 U/L Total Protein 7.1 6.5-8.0 g/dL Albumin Level 4.1 3.5-5.0 g/dL Alkaline Phosphatase 66 39-117 U/L Lipid Panel with Reflex Reviewed date:03/09/2025 04:17:09 PM Interpretation: Performing Lab:[facility], [address] [place] [phone] Notes/Report: Triglycerides 79 <150 mg/dL Desirable Triglyceride: [...] Location Date Provider Diagnosis Teto Gary MD [address] [place] [address] [place] [phone] 03/09/2025 Teto Gary Pure hypercholestero lemia E78.00 Assessments Encounter Date Diagnosis (ICD Code) Assessment Notes Treatment Notes Treatment Clinical Notes Section Notes 03/09/2025 Pure hypercholesterolemia (ICD-10 - E78.00) Plan Of Treatment Next Appt Details Provider Name:Teto Sky ier, 09/13/2025 07:30:00 AM, [address] [place] [address], Suite [facility], [place], [place], [phone], Provider Name:Teto Faithdebra ier, 09/20/2025 01:00:00 PM, [address] [place] [address], [place] [address], [place], [place], [phone], Progress Notes * LAVERN LIVINGSTON RDOB:1950 (74 yo M)Acc No.[id number]:03/09/2025 Progress Note Patient: LAVERN EDUARDO Provider: Naveen Gary MD :1950 A ge:74 Y S ex:Male Date:03/09/2025 Address:[address] [place], [place] [phone] Subjective: * Chief Complaints: * 1 . [...] 03/09/2025 Generated for Raffaele lara/Aminta/Nickitting on: 0 05/21/2025 08:35 AM EDT
--- OUTSIDE RECORDS SUMMARY | 2025-05-21 08:35 | XMS_ITS | Clinical Summary ---
Author Organization [facility] Address [address] [facility] [address] [place] [address] Phone Care Team Providers Care Uniform Force Captain Name Role Phone Teto Gary MD Primary [...] this topic Insurance A[employer]na MCR Adv PPO ([id number]) Aetna MCR Adv PPO ([id number]) Care Teams Uniform Force Captain Relationship Specialty Start Date End Date Teto Gary MD [address] [place] [address] [address] [place], [place] PCP - General 10/21/20
[2025-05-21 08:41] LABS: Prothrombin Time Whole Bld POC 53.7 sec (11.1-13.5); ~PT, ~INR - Anti Coag Clinic 4.5 (0.9-1.1)
--- NOTE | 2025-05-21 08:42 | MHC.OFFVISCO ---
Intake Intake Visit Reasons: Anticoagulation Allergies diphenhydramine (From BENADRYL) Allergy (Intermediate, Verified 05/21/25 08:34) RESTLESS LEGS lisinopril (LISINOPRIL) Allergy (Intermediate, Verified 05/21/25 08:34) DIZZINESS Lisiopril/HCTZ Allergy (Unknown, Uncoded 05/21/25 08:34) dizziness Medication List - Last Reconciled 05/21/25 by Stefani Kelly RN acetaminophen 975 mg PO QID PRN amlodipine 10 mg PO DAILY docusate sodium 100 mg PO BID PRN levothyroxine 150 mcg PO DAILY losartan 25 mg PO DAILY metoprolol succinate ER 50 mg PO DAILY rosuvastatin 40 mg PO DAILY tamsulosin (Flomax) 0.4 mg PO DAILY warfarin 5 mg See Protocol PO DAILY Nursing Note INR: 4.5 out of therapeutic range of 2-3 Medications and supplements reviewed Patient status: having pain in left knee. States he has to call his doctor. Pain started one morning and he is not sure why. He is using a cane. He denies taking Tylenol but states he has been drinking alcohol to help the pain. Medications or supplements: no changes Diet: usual diet for pt Denies any signs and symptoms of bleeding or clotting or unusual bruising Bleeding, bruising, clotting discussed Nutritional guidance given: to have a serving of greens today. States he has spinach at home and will have some today. Dose: decrease today's dose to 2.5mg (10mg) then 10mg X 6 days and 7.5mg X 1 day F/U INR Date: 1 week Pt encouraged to call his doctor and not turn to alcohol for pain control?? Patient verbalizing understanding of instructions with read back given. Coding Level of Care Code Est Patient Level 1 Diagnoses Current use of anticoagulant therapy Z79.01 Assessment & Plan Assessment & Plan (1) Current use of anticoagulant therapy: Code(s): Z79.01 - senior care (current) 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
== END 2025-05-21 08:48 | disposition home or self-care (01) ==
LOC: HO.ACS 08:18
PROVIDERS: PCP Internal Medicine; Visit Provider Internal Medicine Medical Oncology
DX: Z79.01 Long term (current) use of anticoagulants (principal)

== ENCOUNTER → 2025-05-21 08:18 | Outpatient (BNVA) | payer MEDICARE, MEDICAID, SELFPAY | PROVIDERS: PCP Internal Medicine; Visit Provider Internal Medicine Medical Oncology | DX: Z79.01 Long term (current) use of anticoagulants (principal) | CPT/HCPCS: 85610; 99211 ==

== ENCOUNTER 2025-05-28 07:54 | Outpatient (AMB) | payer MEDICARE, MEDICAID, SELFPAY ==
--- OUTSIDE RECORDS SUMMARY | 2025-03-09 03:15 | XMS_ITS ---
Author Organization Teto Gary MD Address [address] [place], [place] [phone] Care Team Providers Care Website Project Manager Name Role Phone Teto Gary Primary Care Provider Results Component Value Reference Range Notes Liver Panel Reviewed date:03/09/2025 04:17:25 PM Interpretation: Performing Lab:[facility], [address] [place] [phone] Notes/Report: Bilirubin Total 0.8 0.0-1.0 mg/dL Bilirubin Direct 0.3 0.0-0.5 mg/dL Aspartate Amino Transferase 27 5-37 U/L Alanine Aminotransferase 19 0-40 U/L Total Protein 7.1 6.5-8.0 g/dL Albumin Level 4.1 3.5-5.0 g/dL Alkaline Phosphatase 66 39-117 U/L Lipid Panel with Reflex Reviewed date:03/09/2025 04:17:09 PM Interpretation: Performing Lab:[facility], [address] [place] [phone] Notes/Report: Triglycerides 79 <150 mg/dL Desirable Triglyceride: [...] Location Date Provider Diagnosis Teto Gary MD [address] [place] [address] [place] [phone] 03/09/2025 Teto Gary Pure hypercholestero lemia E78.00 Assessments Encounter Date Diagnosis (ICD Code) Assessment Notes Treatment Notes Treatment Clinical Notes Section Notes 03/09/2025 Pure hypercholesterolemia (ICD-10 - E78.00) Plan Of Treatment Next Appt Details Provider Name:Teto Sky ier, 09/13/2025 07:30:00 AM, [address] [place] [address], Suite [facility], [place], [place], [phone], Provider Name:Teto Faithdebra ier, 09/20/2025 01:00:00 PM, [address] [place] [address], [place] [address], [place], [place], [phone], Progress Notes * LAVERN LIVINGSTON RDOB:1950 (74 yo M)Acc No.[id number]:03/09/2025 Progress Note Patient: LAVERN EDUARDO Provider: Naveen Gary MD :1950 A ge:74 Y S ex:Male Date:03/09/2025 Address:[address] [place], [place] [phone] Subjective: * Chief Complaints: * 1 . [...] 03/09/2025 Generated for Raffaele lara/Aminta/Nickitting on: 0 05/28/2025 07:56 AM EDT
--- OUTSIDE RECORDS SUMMARY | 2025-05-28 07:56 | XMS_ITS | Clinical Summary ---
Author Organization [facility] Address [address] [facility] [[email or web address] [address] [place] [address] Phone Care Team Providers Care High School Business Teacher Name Role Phone Teto Gary MD Primary [...] this topic Insurance Aetna MCR Adv PPO ([id number]) Aetna MCR Adv PPO ([phone]) Care Teams High School Business Teacher Relationship Specialty Start Date End Date Teto Gary MD [address] [place] [address] [address] [place], [place] PCP - General 10/21/20
--- NOTE | 2025-05-28 08:05 | MHC.OFFVISCO ---
Intake Intake Visit Reasons: Anticoagulation Allergies diphenhydramine (From BENADRYL) Allergy (Intermediate, Verified 05/28/25 07:57) RESTLESS LEGS lisinopril (LISINOPRIL) Allergy (Intermediate, Verified 05/28/25 07:57) DIZZINESS Lisiopril/HCTZ Allergy (Unknown, Uncoded 05/28/25 07:57) dizziness Medication List - Last Reconciled 05/28/25 by Nicole Mercado RN acetaminophen 975 mg PO QID PRN amlodipine 10 mg PO DAILY docusate sodium 100 mg PO BID PRN levothyroxine 150 mcg PO DAILY losartan 25 mg PO DAILY metoprolol succinate ER 50 mg PO DAILY rosuvastatin 40 mg PO DAILY tamsulosin (Flomax) 0.4 mg PO DAILY warfarin 5 mg See Protocol PO DAILY Nursing Note INR: 3.0 in therapeutic range Medications and supplements reviewed No changes in health, diet, medications, or supplements, taking oc tyelnol for knee pain to follow up with ortho Denies any signs and symptoms of bleeding or bruising or clotting. Bleeding, bruising, clotting discussed Nutritional guidance given - increase greens with tylenol Dose: resume usual dose 7.5mg x 1 day/ 10mg x 6 days F/U INR: 2 weeks Patient verbalizes understanding of instructions given Coding Level of Care Code Est Patient Level 1 Diagnoses Current use of anticoagulant therapy Z79.01 Results AMB INR Fingerstick AMB INR Fingerstick 3.0 Last Edit by Nicole Mercado RN on 05/28/25 08:03 MANUAL ENTRY Assessment & Plan Assessment & Plan (1) Current use of anticoagulant therapy: Code(s): Z79.01 - longterm (current) 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
[2025-05-28 08:11] LABS: Prothrombin Time Whole Bld POC 36.1 sec (11.1-13.5); ~PT, ~INR - Anti Coag Clinic 3.0 (0.9-1.1)
== END 2025-05-28 08:09 | disposition home or self-care (01) ==
LOC: HO.ACS 07:54
PROVIDERS: PCP Internal Medicine; Visit Provider Internal Medicine Medical Oncology
DX: Z79.01 Long term (current) use of anticoagulants (principal)

== ENCOUNTER → 2025-05-28 07:54 | Outpatient (BNVA) | payer MEDICARE, MEDICAID, SELFPAY | PROVIDERS: PCP Internal Medicine; Visit Provider Internal Medicine Medical Oncology | DX: Z95.2 Presence of prosthetic heart valve (principal); Z79.01 Long term (current) use of anticoagulants; Z51.81 Encounter for therapeutic drug level monitoring | CPT/HCPCS: 85610; 99211 ==

== ENCOUNTER 2025-06-15 13:49 | Outpatient (AMB) | payer MEDICARE, MEDICAID, SELFPAY ==
--- OUTSIDE RECORDS SUMMARY | 2024-10-27 06:12 | XMS_ITS ---
Author Organization Teto Gary MD Address [address] [place] [phone] Care Team Providers Care Refractory Grinder Operator Name Role Phone CookieZacn Primary Care Provider REASON FOR VISIT ER Visit rec'd Encounters Encounter Location Date Provider Diagnosis Teto Gary MD 10 [facility] [address] [place] [phone] 10/27/2024 Teto Gary Plan Of Treatment Next Appt Details Provider Name:Teto Sky ier, 09/13/2025 07:30:00 AM, [address] [place] [address], Suite [facility], [place], [place], [phone], Provider Name:Teto kaye, 09/20/2025 01:00:00 PM, [address] [place] [address], [place] [address], [place], [place], [phone], Progress Notes * LAVERN LIVINGSTON RDOB:1950 (74 yo M)Acc No.[id number]:10/27/2024 Patient: LAVERN EDUARDO :1950 A ge:74 Y S ex:Male Address:[address] [place] [address], [address] * true * Date: Generated for Raffaele lara/Aminta/Yasmine on: 0 06/15/2025 02:18 PM EDT
--- OUTSIDE RECORDS SUMMARY | 2024-11-13 07:30 | XMS_ITS ---
Author Organization Teto Gary MD Address [address] [place], [place] [phone] Care Team Providers Care Cnc Mill And Lathe Operator Name Role Phone Teto Gary Primary Care Provider Allergies Allergen (clinical drug ingredient) Drug/Non Drug Allergy documented on EMR Reaction Allergy Type Onset Date Status diphenhydramine Benadryl Unknown Drug Allergy A ctive REASON FOR VISIT was seen at [facility] for hernia, has already seen the [...] Date Provider Diagnosis Teto Gary MD [address] [place], [place] [phone] 11/13/2024 Teto Gary Mechanical heart valve present [...] Provider Name:Teto kaye, 09/13/2025 07:30:00 AM, [address], [address], [place], [place], [phone], Provider Name:Teto kaye, 09/20/2025 01:00:00 PM, [address], [address], [place], [place], [phone], Progress Notes * LAVERN LIVINGSTON RDOB:1950 (74 yo M)Acc No.[id number]:11/13/2024 Progress Notes Patient: LAVERN EDUARDO Provider: Naveen Gary MD :1950 A ge:74 Y S ex:Male Date:11/13/2024 Address:[address] [place] [address] [id number] Subjective: * Chief Complaints: * w as seen at [facility] for hernia, has already seen the [...] concerned that he is not seeing a skein straightener at present. memory has been bad for [...] 0 11/13/2024 Generated for Raffaele lara/Aminta/Yasmine on: 0 06/15/2025 02:18 PM EDT History and Physical Notes * [...] concerned that he is not seeing a skein straightener at present. memory has been bad for [...]
--- OUTSIDE RECORDS SUMMARY | 2025-01-08 05:45 | XMS_ITS ---
Author Organization Teto Gary MD Address [address] [place] [phone] Care Team Providers Care City Alderman Name Role Phone CookieZacn Primary Care Provider [phone] REASON FOR VISIT FYI INR results Encounters Encounter Location Date Provider Diagnosis Teto Gary MD 10 [facility] [address] [place] [phone] 01/08/2025 Teto Gary Plan Of Treatment Next Appt Details Provider Name:Teto Sky ier, 09/13/2025 07:30:00 AM, [address] [place] [address], Suite [facility], [place], [place], [phone], Provider Name:Teto Sky ier, 09/20/2025 01:00:00 PM, [address] [place] [address], [place] [address], [place], [place], [phone], Progress Notes * LAVERN LIVINGSTON RDOB:1950 (74 yo M)Acc No.[id number]:01/08/2025 Patient: LAVERN EDUARDO :1950 A ge:74 Y S ex:Male Address:[address] [place] [address], [address] * true * Date: Generated for Raffaele lara/Aminta/Yasmine on: 0 06/15/2025 02:17 PM EDT
--- OUTSIDE RECORDS SUMMARY | 2025-03-09 03:15 | XMS_ITS ---
Author Organization Teto Gary MD Address [address] [place], [place] [phone] Care Team Providers Care Material Handling Supervisor Name Role Phone Teto Gary Primary Care Provider Results Component Value Reference Range Notes Liver Panel Reviewed date:03/09/2025 04:17:25 PM Interpretation: Performing Lab:[facility], [address] [place] [phone] Notes/Report: Bilirubin Total 0.8 0.0-1.0 mg/dL Bilirubin Direct 0.3 0.0-0.5 mg/dL Aspartate Amino Transferase 27 5-37 U/L Alanine Aminotransferase 19 0-40 U/L Total Protein 7.1 6.5-8.0 g/dL Albumin Level 4.1 3.5-5.0 g/dL Alkaline Phosphatase 66 39-117 U/L Lipid Panel with Reflex Reviewed date:03/09/2025 04:17:09 PM Interpretation: Performing Lab:[facility], [address] [place] [phone] Notes/Report: Triglycerides 79 <150 mg/dL Desirable Triglyceride: [...] Location Date Provider Diagnosis Teto Gary MD [address] [place] [address] [place] [phone] 03/09/2025 Teto Gary Pure hypercholestero lemia E78.00 Assessments Encounter Date Diagnosis (ICD Code) Assessment Notes Treatment Notes Treatment Clinical Notes Section Notes 03/09/2025 Pure hypercholesterolemia (ICD-10 - E78.00) Plan Of Treatment Next Appt Details Provider Name:Teto Sky ier, 09/13/2025 07:30:00 AM, [address] [place] [address], Suite [facility], [place], [place], [phone], Provider Name:Teto Faithdebra ier, 09/20/2025 01:00:00 PM, [address] [place] [address], [place] [address], [place], [place], [phone], Progress Notes * LAVERN LIVINGSTON RDOB:1950 (74 yo M)Acc No.[id number]:03/09/2025 Progress Note Patient: LAVERN EDUARDO Provider: Naveen Gary MD :1950 A ge:74 Y S ex:Male Date:03/09/2025 Address:[address] [place], [place] [phone] Subjective: * Chief Complaints: * 1 . [...] 03/09/2025 Generated for Raffaele lara/Aminta/Nickitting on: 0 06/15/2025 02:17 PM EDT
--- OUTSIDE RECORDS SUMMARY | 2025-03-19 09:30 | XMS_ITS ---
Author Organization Teto Gary MD Address [address] [place], [place] [phone] Care Team Providers Care Hydrogeologist Name Role Phone Teto Gary Primary Care [...] kg/m2 03/19/2025 weight is down 9 pounds [facility] e 11-13-24 Encounters Encounter Location Date Provider Diagnosis Teto Gary MD [address] [place] [address] [place] [phone] 03/19/2025 Teto Gary Bilateral carotid ar jacque [...] Details Provider Name:Teto kaye, 09/13/2025 07:30:00 AM, [address] [place] [address], [place] [address], [place], [place], [phone], Provider Name:Teto kaye, 09/20/2025 01:00:00 PM, [address] [place] [address], [place] [address], [place], [place], [phone], Progress Notes * LAVERN LIVINGSTON RDOB:1950 (74 yo M)Acc No.[id number]:03/19/2025 Progress Notes Patient: LAVERN EDUARDO Provider: Naveen Gary MD :1950 A ge:74 Y S ex:Male Date:03/19/2025 Address:[address] [place] [address] [id number] Subjective: * Chief Complaints: * 6 month [...] Gary MD Date: 0 03/19/2025 Generated for Bhupinderi marco/Aminta/eTransmitting on: 0 06/15/2025 02:18 PM EDT History [...]
--- NOTE | 2025-06-15 14:04 | MHC.OFFVISCO ---
Intake Intake Visit Reasons: Anticoagulation Allergies diphenhydramine (From BENADRYL) Allergy (Intermediate, Verified 06/15/25 14:02) RESTLESS LEGS lisinopril (LISINOPRIL) Allergy (Intermediate, Verified 06/15/25 14:02) DIZZINESS Lisiopril/HCTZ Allergy (Unknown, Uncoded 06/15/25 14:02) dizziness Medication List - Last Reconciled 06/15/25 by Noemi Holder RN acetaminophen 975 mg PO QID PRN amlodipine 10 mg PO DAILY docusate sodium 100 mg PO BID PRN levothyroxine 150 mcg PO DAILY losartan 25 mg PO DAILY metoprolol succinate ER 50 mg PO DAILY rosuvastatin 40 mg PO DAILY tamsulosin (Flomax) 0.4 mg PO DAILY warfarin 5 mg See Protocol PO DAILY Nursing Note INR 1.5-?? out of therapeutic range 2-3 Medications and supplements reviewed Patient status: pt amb with cane, c.o left pain, no tylenol, pt states may have missed a dose Medications or supplements: no changes Diet: same Denies any signs and symptoms of bleeding or clotting or unusual bruising Bleeding, bruising, clotting discussed Nutritional guidance given: no greens for 2-3 days, eat reds to raise Dose: 12.5mg today and tomm then cont 10mg x 6, 7.5mg x 1 F/U INR Date : wed06/20/25? Patient verbalizing understanding of instructions given. pcp office Dr Mendoza office called with low inr/dosing and retest, aware of ? missed dose. 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
[2025-06-15 14:06] LABS: Prothrombin Time Whole Bld POC 17.5 sec (11.1-13.5); ~PT, ~INR - Anti Coag Clinic 1.5 (0.9-1.1)
--- OUTSIDE RECORDS SUMMARY | 2025-06-15 14:17 | XMS_ITS | Clinical Summary ---
Author Organization [facility] Address [address] [facility] [address] [place] [address] Phone Care Team Providers Care Lugger Name Role Phone Teto Gary MD Primary [...] this topic Insurance [employer] MCR Adv PPO ([id number]) Aetna MCR Adv PPO ([id number]) Care Teams Lugger Relationship Specialty Start Date End Date Teto Gary MD [address] [place] [address] [address] [place], [place] PCP - General 10/21/20
--- OUTSIDE RECORDS SUMMARY | 2025-06-15 14:18 | XMS_ITS | Patient Health Record ---
Author Organization Teto Gary MD Address [address] [place], [place] [id number] Care Team Providers Care [employer]ement [employer] Name Role Phone Teto Gary Primary Care Provider [phone] Allergies Allergen (clinical drug ingredient) Drug/Non Drug Allergy documented on EMR Reaction Allergy Type Onset Date Status diphenhydramine Benadryl Unknown Drug Allergy A ctive Results Component Value Reference Range Notes Complete Blood Count Auto Di ff Reviewed date:08/18/2024 12:47:17 PM Interpretation: Performing Lab:[facility], [address] [place] [phone] Notes/Report: White Blood Count 6.2 4.8-10.8 X10*3/uL [...] NRBC Abs Auto 0.000 0.0-0.012 X10*3/uL Comprehensive Coleridge. Panel Fa st Reviewed date:08/18/2024 01:03:50 PM Interpretation: Performing Lab:[facility], [address] [place] [phone] Notes/Report: Sodium 141 135-145 mmol/L Potassium 3.9 3.3-5.1 mmol/L Chloride 109 96-108 mmol/L Carbon Dioxide 25 22-29 mmol/L Anion Gap 11 12-20 Blood Urea Nitrogen 20 9-16 mg/dL Creatinine 1.31 0.5-1.4 mg/dL Estimated Glomerular Filt Rate 54 NOTE: For -Maur[place] individuals, multiply the result by 1.210. Chronic [...] Panel Reviewed date:08/18/2024 12:35:19 PM Interpretation: Performing Lab:[facility], [address] [place] [phone] Notes/Report: Triglycerides 84 <150 mg/dL Desirable Triglyceride: [...] (Free>4and<10) Reviewed date:08/18/2024 12:34:12 PM Interpretation: Performing Lab:[facility], [address] [place] [phone] Notes/Report: PSA,Total (Free>4and<10) 3.01 0.00-4.00 ng/mL A [...] Reviewed date:09/18/2024 10:17:51 AM Interpretation:[place] 09/15 Performing Lab:[facility], [address] [place] [phone] Notes/Report: Urine, Clean Catch Color Urine Yellow Appearance Urine Clear PH 6.0 5.0-9.0 Glucose Urine UA Negative Negative mg/dL Urine Blood Large (3+) Negative Specific [place] - Urine 1.015 1.005-1.025 Urine Protein 300 (3+) Neg-Trace mg/dL Urine Ketones Negative Negative mg/dL Nitrite Urine Negative Negative Leukocyte Esterase Urine Negative Negative RBC Urine >20 0-2 /HPF WBC Urine 0-5 0-5 /HPF Squamous Epithelial Cell Urine 0-2 0-2 /HPF Bacteria Urine None Seen None Seen Hyaline Casts Urine 0-2 0-2 /LPF Liver Panel Reviewed date:03/09/2025 04:17:25 PM Interpretation: Performing Lab:[facility], [address] [place] [phone] Notes/Report: Bilirubin Total 0.8 0.0-1.0 mg/dL Bilirubin Direct 0.3 0.0-0.5 mg/dL Aspartate Amino Transferase 27 5-37 U/L Alanine Aminotransferase 19 0-40 U/L Total Protein 7.1 6.5-8.0 g/dL Albumin Level 4.1 3.5-5.0 g/dL Alkaline Phosphatase 66 39-117 U/L Lipid Panel with Reflex Reviewed date:03/09/2025 04:17:09 PM Interpretation: Performing Lab:[facility], [address] [place] [phone] Notes/Report: Triglycerides 79 <150 mg/dL Desirable Triglyceride: [...] low results in patients with liver disease. Occult Blood, Stool, Guaiac Reviewed date:09/15/2024 02:23:11 PM Interpretation:Negative Performing Lab: Notes/Report: Negative Occult Blood, Stool, Guaiac Neg INR WHOLE BLOOD POC Reviewed date:06/15/2024 12:12:03 PM Interpretation: Performing Lab:[facility], [address] [place] [phone] Notes/Report: PT, INR - Anti [facility]ag Clinic 3.1 0.9-1.1 METER #: [id number] INTERNATIONAL NORMALIZED RATIO (INR) REFERENCE RANGES Reference [...] OC Reviewed date:06/15/2024 12:18:03 PM Interpretation: Performing Lab:[facility], [address] [place] [phone] Notes/Report: Prothrombin Time Whole Bld POC 37.5 11.1-13.5 sec INR WHOLE BLOOD POC Reviewed date:07/10/2024 08:22:11 AM Interpretation: Performing Lab:[facility], [address] [place] [phone] Notes/Report: PT, INR - [facility]ag [facility] 2.9 0.9-1.1 METER #: [id number] INTERNATIONAL NORMALIZED RATIO (INR) REFERENCE RANGES Reference [...] OC Reviewed date:07/10/2024 10:33:10 AM Interpretation: Performing Lab:[facility], [address] [place] [phone] Notes/Report: Prothrombin Time Whole Bld POC 34.9 11.1-13.5 sec INR WHOLE BLOOD POC Reviewed date:08/07/2024 12:29:32 PM Interpretation: Performing Lab:[facility], [address] [place] [phone] Notes/Report: PT, INR - [facility]ag [facility] 3.4 0.9-1.1 METER #: [id number] INTERNATIONAL NORMALIZED RATIO (INR) REFERENCE RANGES Reference [...] OC Reviewed date:08/07/2024 12:28:11 PM Interpretation: Performing Lab:[facility], [address] [place] [phone] Notes/Report: Prothrombin Time Whole Bld POC 41.1 11.1-13.5 sec INR WHOLE BLOOD POC Reviewed date:08/21/2024 07:00:30 PM Interpretation: Performing Lab:[facility], [address] [place] [phone] Notes/Report: PT, INR - Anti Coag [facility] 2.0 0.9-1.1 METER #: [id number] INTERNATIONAL NORMALIZED RATIO (INR) REFERENCE RANGES Reference [...] OC Reviewed date:08/21/2024 07:02:24 PM Interpretation: Performing Lab:[facility], [address] [place] [phone] Notes/Report: Prothrombin Time Whole Bld POC 24.1 11.1-13.5 sec INR WHOLE BLOOD POC Reviewed date:09/18/2024 12:40:45 PM Interpretation: Performing Lab:[facility], [address] [place] [phone] Notes/Report: PT, INR - Anti Coag [facility] 2.0 0.9-1.1 METER #: [id number] INTERNATIONAL NORMALIZED RATIO (INR) REFERENCE RANGES Reference [...] OC Reviewed date:09/18/2024 12:44:30 PM Interpretation: Performing Lab:[facility], [address] [place] [phone] Notes/Report: Prothrombin Time Whole Bld POC 23.9 11.1-13.5 sec INR WHOLE BLOOD POC Reviewed date:10/16/2024 09:52:45 AM Interpretation: Performing Lab:[facility], [address] [place] [phone] Notes/Report: PT, INR - Anti Coag Clinic 3.6 0.9-1.1 METER #: [id number] INTERNATIONAL NORMALIZED RATIO (INR) REFERENCE RANGES Reference [...] OC Reviewed date:10/16/2024 09:52:53 AM Interpretation: Performing Lab:[facility], [address] [place] [phone] Notes/Report: Prothrombin Time Whole Bld POC 43.8 11.1-13.5 sec INR WHOLE BLOOD POC Reviewed date:11/07/2024 04:28:35 PM Interpretation: Performing Lab:[facility], [address] [place] [phone] Notes/Report: PT, INR - Anti Coag [facility] 4.4 0.9-1.1 METER #: [id number] INTERNATIONAL NORMALIZED RATIO (INR) REFERENCE RANGES Reference [...] OC Reviewed date:11/07/2024 04:28:26 PM Interpretation: Performing Lab:[facility], [address] [place] [phone] Notes/Report: Prothrombin Time Whole Bld POC 52.3 11.1-13.5 sec INR WHOLE BLOOD POC Reviewed date:11/22/2024 05:40:44 PM Interpretation: Performing Lab:[facility], [address] [place] [phone] Notes/Report: PT, INR - [facility]ag [facility] 1.5 0.9-1.1 METER #: [id number] Doctor Notified INTERNATIONAL NORMALIZED RATIO (INR) REFERENCE [...] OC Reviewed date:11/22/2024 05:40:26 PM Interpretation: Performing Lab:[facility], [address] [place] [phone] Notes/Report: Prothrombin Time Whole Bld POC 17.8 11.1-13.5 sec INR WHOLE BLOOD POC Reviewed date:11/24/2024 12:39:31 PM Interpretation: Performing Lab:[facility], [address] [place] [phone] Notes/Report: PT, INR - [facility]ag [facility] 2.6 0.9-1.1 METER #: [id number] INTERNATIONAL NORMALIZED RATIO (INR) REFERENCE RANGES Reference [...] OC Reviewed date:11/24/2024 12:35:01 PM Interpretation: Performing Lab:[facility], [address] [place] [phone] Notes/Report: Prothrombin Time Whole Bld POC 30.8 11.1-13.5 sec INR WHOLE BLOOD POC Reviewed date:12/11/2024 11:04:14 AM Interpretation: Performing Lab:[facility], [address] [place] [phone] Notes/Report: PT, INR - [facility]ag [facility] 3.2 0.9-1.1 METER #: [id number] INTERNATIONAL NORMALIZED RATIO (INR) REFERENCE RANGES Reference [...] OC Reviewed date:12/11/2024 12:37:20 PM Interpretation: Performing Lab:[facility], [address] [place] [phone] Notes/Report: Prothrombin Time Whole Bld POC 38.2 11.1-13.5 sec INR WHOLE BLOOD POC Reviewed date:01/01/2025 12:32:57 PM Interpretation: Performing Lab:[facility], [address] [place] [phone] Notes/Report: PT, INR - [facility]ag [facility] 4.6 0.9-1.1 METER #: [id number] INTERNATIONAL NORMALIZED RATIO (INR) REFERENCE RANGES Reference [...] OC Reviewed date:01/01/2025 12:33:05 PM Interpretation: Performing Lab:[facility], [address] [place] [phone] Notes/Report: Prothrombin Time Whole Bld POC 54.9 11.1-13.5 sec INR WHOLE BLOOD POC Reviewed date:01/08/2025 12:19:34 PM Interpretation: Performing Lab:[facility], [address] [place] [phone] Notes/Report: PT, INR - [facility] 1.4 0.9-1.1 METER #: [id number] INTERNATIONAL NORMALIZED RATIO (INR) REFERENCE RANGES Reference [...] OC Reviewed date:01/08/2025 12:19:26 PM Interpretation: Performing Lab:[facility], [address] [place] [phone] Notes/Report: Prothrombin Time Whole Bld POC 16.7 11.1-13.5 sec INR WHOLE BLOOD POC Reviewed date:01/15/2025 08:45:45 AM Interpretation: Performing Lab:[facility], [address] [place] [phone] Notes/Report: PT, INR - [facility] 2.0 0.9-1.1 METER #: [id number] INTERNATIONAL NORMALIZED RATIO (INR) REFERENCE RANGES Reference [...] OC Reviewed date:01/15/2025 08:45:37 AM Interpretation: Performing Lab:[facility], [address] [place] [phone] Notes/Report: Prothrombin Time Whole Bld POC 23.9 11.1-13.5 sec INR WHOLE BLOOD POC Reviewed date:02/07/2025 04:59:10 PM Interpretation: Performing Lab:[facility], [address] [place] [phone] Notes/Report: PT, INR - [facility] 3.1 0.9-1.1 METER #: [id number] INTERNATIONAL NORMALIZED RATIO (INR) REFERENCE RANGES Reference [...] OC Reviewed date:02/07/2025 04:59:01 PM Interpretation: Performing Lab:[facility], [address] [place] [phone] Notes/Report: Prothrombin Time Whole Bld POC 37.7 11.1-13.5 sec INR WHOLE BLOOD POC Reviewed date:02/19/2025 12:25:05 PM Interpretation: Performing Lab:[facility], [address] [place] [phone] Notes/Report: PT, INR - [facility] 2.9 0.9-1.1 METER #: [id number] INTERNATIONAL NORMALIZED RATIO (INR) REFERENCE RANGES Reference [...] Prothrombin Time Whole Bld P OC Reviewed date:02/19/2025 12:25:12 PM Interpretation: Performing Lab:[facility], [address] [place] [phone] Notes/Report: Prothrombin Time Whole Bld POC 34.3 11.1-13.5 sec Hold Gold Reviewed date:03/09/2025 04:15:47 PM Interpretation: Performing Lab:[facility], [address] [place] [phone] Notes/Report: Hold Gold See Note Specimen held untested for 24 hours; Call to request Chemistry testing. INR WHOLE BLOOD POC Reviewed date:03/12/2025 08:52:01 AM Interpretation: Performing Lab:[facility], [address] [place] [phone] Notes/Report: PT, INR - [facility] 2.3 0.9-1.1 METER #: [id number] INTERNATIONAL NORMALIZED RATIO (INR) REFERENCE RANGES Reference [...] Prothrombin Time Whole Bld P OC Reviewed date:03/12/2025 08:51:47 AM Interpretation: Performing Lab:[facility], [address] [place] [phone] Notes/Report: Prothrombin Time Whole Bld POC 27.8 11.1-13.5 sec INR WHOLE BLOOD POC Reviewed date:04/02/2025 12:25:58 PM Interpretation: Performing Lab:[facility], [address] [place] [phone] Notes/Report: PT, INR - [facility] 4.4 0.9-1.1 METER #: [id number] INTERNATIONAL NORMALIZED RATIO (INR) REFERENCE RANGES Reference [...] Prothrombin Time Whole Bld P OC Reviewed date:04/02/2025 12:26:06 PM Interpretation: Performing Lab:[facility], [address] [place] [phone] Notes/Report: Prothrombin Time Whole Bld POC 52.3 11.1-13.5 sec INR WHOLE BLOOD POC Reviewed date:04/09/2025 01:00:49 PM Interpretation: Performing Lab:[facility], [address] [place] [phone] Notes/Report: PT, INR - [facility] 2.0 0.9-1.1 METER #: [id number] INTERNATIONAL NORMALIZED RATIO (INR) REFERENCE RANGES Reference [...] Prothrombin Time Whole Bld P OC Reviewed date:04/09/2025 11:54:02 AM Interpretation: Performing Lab:[facility], [address] [place] [phone] Notes/Report: Prothrombin Time Whole Bld POC 24.2 11.1-13.5 sec INR WHOLE BLOOD POC Reviewed date:04/16/2025 12:38:18 PM Interpretation: Performing Lab:[facility], [address] [place] [phone] Notes/Report: PT, INR - [facility]ag [facility] 3.0 0.9-1.1 METER #: [id number] INTERNATIONAL NORMALIZED RATIO (INR) REFERENCE RANGES Reference [...] Prothrombin Time Whole Bld P OC Reviewed date:04/16/2025 12:38:10 PM Interpretation: Performing Lab:[facility], [address] [place] [phone] Notes/Report: Prothrombin Time Whole Bld POC 36.0 11.1-13.5 sec INR WHOLE BLOOD POC Reviewed date:05/04/2025 09:07:14 PM Interpretation: Performing Lab:[facility], [address] [place] [phone] Notes/Report: PT, INR - Anti [facility]ag [facility] 3.1 0.9-1.1 METER #: [id number] INTERNATIONAL NORMALIZED RATIO (INR) REFERENCE RANGES Reference [...] Prothrombin Time Whole Bld P OC Reviewed date:05/04/2025 09:06:52 PM Interpretation: Performing Lab:[facility], [address] [place] [phone] Notes/Report: Prothrombin Time Whole Bld POC 36.9 11.1-13.5 sec INR WHOLE BLOOD POC Reviewed date:05/21/2025 11:57:08 AM Interpretation: Performing Lab:[address] [phone] Notes/Report: PT, INR - Anti [facility]ag Clinic 4.5 0.9-1.1 METER #: [id number] INTERNATIONAL NORMALIZED RATIO (INR) REFERENCE RANGES Reference [...] Prothrombin Time Whole Bld P OC Reviewed date:05/21/2025 11:57:15 AM Interpretation: Performing Lab:[address] [phone] Notes/Report: Prothrombin Time Whole Bld POC 53.7 11.1-13.5 sec INR WHOLE BLOOD POC Reviewed date:05/28/2025 11:14:53 AM Interpretation: Performing Lab:[facility], [address] [place] [phone] Notes/Report: PT, INR - Anti [facility]ag Clinic 3.0 0.9-1.1 METER #: [id number] INTERNATIONAL NORMALIZED RATIO (INR) REFERENCE RANGES Reference [...] Prothrombin Time Whole Bld P OC Reviewed date:05/28/2025 08:28:36 AM Interpretation: Performing Lab:[address] [phone] Notes/Report: Prothrombin Time Whole Bld POC 36.1 11.1-13.5 sec INR WHOLE BLOOD POC (Not yet reviewed by provider) Interpretation: Performing Lab:[address] [phone] Notes/Report: PT, INR - Anti Coag Clinic 1.5 0.9-1.1 METER #: [id number] Doctor Notified INTERNATIONAL NORMALIZED RATIO (INR) REFERENCE [...] 3.5 Prothrombin Time Whole Bld P OC (Not yet reviewed by provider) Interpretation: Performing Lab:[facility], [address] [place] [phone] Notes/Report: Prothrombin Time Whole Bld POC 17.5 11.1-13.5 sec Reason For Referral No Information [...] TAKE 1 TABLET BY MOUTH EVERY DAY for 90 Active Warfarin Sodium 5 MG TAKE 2 TABLETS ON WEDNESDAY, WEDNESDAY, WEDNESDAY, TAKE 2.5 TABLETS ON OTHER DAYS ORALLY ONCE A DAY 90 DAYS Active Metoprolol Succinate ER 50 MG TAKE 1 TABLET BY MOUTH EVERY DAY FOR 90 DAYS for 90 Active Sildenafil Citrate 100 MG 1 tablet as ne eded Orally Once a day for 30 day(s) 05/01/2019 Active Levothyroxine Sodium 150 MCG TAKE 1 TABL ET BY MOUTH EVERY MORNING ON AN EMPTY STOMACH ORALLY ONCE A DAY 90 DAYS for 90 Active Immunizations Vaccine Route Administration Date Status [...] any alcohol x 1 month 08-19-23 patient stsantiago stopped drinking 2 weeks ago. Patient states drinks a pint of whiskey everyday. Today starts a new life no more drinking as of 08-04-21 has not had any alcohol x 1 month 08-19-23 patient stsantiago stopped drinking 2 weeks ago. 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) Active confirmed Problem 92037225 Alcohol abuse (F10.10) Active confirme d Problem 99550064 Heart murmur (R01.1) Active confirmed Problem 52499746 RBBB (I45.10) Active confirmed Problem 201826936 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) Active confirmed Problem 38384850 Chronic renal fa ilure, stage 3 (moderate) (N18.3) Active confirmed Problem 682024960 Pure hypercholesterolemia (E78.00) Active confirmed Problem 884837708 Other cardiac arrhythmia (I49.8) Active confirmed Problem 86105168635539 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) Active confirmed Problem 1239038264774621 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) Active confirmed Problem 295432971 Age-related inci pient cataract of both eyes (H25.093) Active confirmed Problem 579458308 Chronic kidney d isease (CKD) stage G1/A2, glomerular filtration rate (GFR) equal to or greater than 90 mL/min/1.73 square meter and albuminuria creatinine ratio between 30-299 mg/g (N18.1) Active confirmed Vital Signs Blood pressure diastolic 70 mm Hg 03/19/2025 sonja ght is down 9 pounds since 11-13-24 Height 71.5 in 03/19/2025 weight is down 9 pounds since 11-13-24 Blood pressure systolic 128 mm Hg 03/19/2025 weig ht is down 9 pounds since 11-13-24 Weight 257 lbs 03/19/2025 weight is down 9 pounds since 11-13-24 BMI 35.34 kg/m2 03/19/2025 weight is down 9 pounds since 11-13-24 Encounters Encounter Location Date Provider Diagnosis Teto Gary MD [address] [place] [id number] 08/18/2024 Teto Gary Blood tests for rout ine general physical examination Z00.00 ; Essential (primary) hypertension I10 ; Pure hypercholesterolemia E78.00 ; Chronic kidney disease (CKD) stage G1/A2, glomerular filtration rate (GFR) equal to or greater than 90 mL/min/1.73 square meter and albuminuria creatinine ratio between 30-299 mg/g N18.1 and Prostatism N40.0 [address]eto [address] MD [address] [place] [id number] 03/09/2025 Teto Gary Pure hypercholestero lemia E78.00 Teto Gary MD [address] [place] [id number] 09/15/2024 Teto Gary Left inguinal hernia K40.90 ; Annual physical exam Z00.00 ; Mechanical heart valve present Z95.2 ; Essential (primary) hypertension I10 ; Microscopic hematuria R31.29 ; Prostatism N40.0 ; Pure hypercholesterolemia E78.00 ; Acquired hypothyroidism E03.9 ; Colon cancer screening Z12.11 and Depression screening Z13.31 Teto Gary MD [address] [place] [id number] 11/13/2024 Teto Gary Mechanical heart mary ve present Z95.2 ; Mild dementia without behavioral disturbance, psychotic disturbance, mood disturbance, or anxiety, unspecified dementia type F03.A0 and Heme positive stool R19.5 Teto Gary MD [address] [place] [address] [id number] 03/19/2025 Teto Gary Bilateral carotid ar jacque disease I77.9 ; Pure hypercholesterolemia E78.00 and Leg pain M79.606 Teto Gary MD [address] [place] [id number] 10/27/2024 Teto Gary MD [address] [place] [address] [id number] 01/08/2025 Teto Gary Assessments Encounter Date Diagnosis (ICD Code) Assessment Notes Treatment Notes Treatment Clinical Notes Section Notes 08/18/20[address] ine general physical examination (ICD-10 - Z00.00) 08/18/2024 Essential (primary) hypertension (ICD-10 - I10) 03/09/2025 Pure hypercholesterolemia (ICD-10 - E78.00) 09/15/2024 Left inguinal hernia (ICD-10 - K40.90) [...] do anything. will consider mri in future 03/19/2025 Bilateral carotid artery disease (ICD-10 - I77.9) don't want to stop the statin if possible due to the carotid disease 03/19/2025 Pure hypercholesterolemia (ICD-10 - E78.00) has good numbers, will continue current regiment 08/18/2024 Pure hypercholesterolemia (ICD-10 - E78.00) 09/15/2024 Mechanical heart mary ve present (ICD-10 - Z95.2) unable to hear murmer today 11/13/2024 Heme positive stool (ICD-10 - R19.5) is going to go to cardiology and then get a colonoscopy 03/19/2025 Leg pain (ICD-10 - M79.606) is going to try walking and see if it gets better. if not will try stopping his statins and see if that is the cause 08/18/2024 Chronic kidney disea se (CKD) stage G1/A2, glomerular filtration rate (GFR) equal to or greater than 90 mL/min/1.73 square meter and albuminuria creatinine ratio between 30-299 mg/g (ICD-10 - N18.1) 09/15/2024 Essential (primary) hypertension (ICD-10 - I10) [...] LAT 02/15/2023 US CAROTID BILATERAL DOPPLER 08/04/2021 INR WHOLE BLOOD POC 06/15/2025 Prothrombin Time Whole Bld POC CT chest wo con 04/27/2022 CT chest wo con 05/28/2022 ECHO 04/22/2020 Future Test Test Name Order Date CT CHEST NO CONTRAST 06/26/2021 Next Appt Details Provider Name:Teto Lizzie Sky ier, 09/13/2025 07:30:00 AM, [address] [place] [address], [address], [place], [place], [id number], Provider Name:Teto Sky ier, 09/20/2025 01:00:00 PM, [address] [place] [address], [address], [place], [place], [id number], Insurance Providers Payer Name Payer Address Payer Phone Subscriber Number Group Number Insured Name Patient Relationship to Insured Coverage Start Date Coverage End Date [employer] [address] [place], [place] [id number] [place] Self - patient is the insured [facility] [address] [place] [address] [id number] [employer] Self - patient is the [...]
== END 2025-06-15 14:15 | disposition home or self-care (01) ==
LOC: HO.ACS 13:49
PROVIDERS: PCP Internal Medicine; Visit Provider Internal Medicine Medical Oncology
DX: Z79.01 Long term (current) use of anticoagulants (principal)

== ENCOUNTER → 2025-06-15 13:49 | Outpatient (BNVA) | payer MEDICARE, MEDICAID, SELFPAY | PROVIDERS: PCP Internal Medicine; Visit Provider Internal Medicine Medical Oncology | DX: Z95.2 Presence of prosthetic heart valve (principal); Z79.01 Long term (current) use of anticoagulants; Z51.81 Encounter for therapeutic drug level monitoring | CPT/HCPCS: 85610; 99211 ==

== ENCOUNTER 2025-06-20 13:24 | Outpatient (AMB) | payer MEDICARE, MEDICAID, SELFPAY ==
--- OUTSIDE RECORDS SUMMARY | 2024-10-27 06:12 | XMS_ITS ---
Author Organization Teto Gary MD Address [address] [place] [phone] Care Team Providers Care Tube Room Cashier Name Role Phone CookieZacn Primary Care Provider REASON FOR VISIT ER Visit rec'd Encounters Encounter Location Date Provider Diagnosis Teto Gary MD 10 [facility] [address] [place] [phone] 10/27/2024 Teto Gary Plan Of Treatment Next Appt Details Provider Name:Teto Sky ier, 09/13/2025 07:30:00 AM, [address] [place] [address], Suite [facility], [place], [place], [phone], Provider Name:Teto kaye, 09/20/2025 01:00:00 PM, [address] [place] [address], [place] [address], [place], [place], [phone], Progress Notes * LAVERN LIVINGSTON RDOB:1950 (74 yo M)Acc No.[id number]:10/27/2024 Patient: LAVERN EDUARDO :1950 A ge:74 Y S ex:Male Address:[address] [place] [address], [address] * true * Date: Generated for Raffaele lara/Aminta/Yasmine on: 0 06/20/2025 04:27 PM EDT
--- OUTSIDE RECORDS SUMMARY | 2024-11-13 07:30 | XMS_ITS ---
Author Organization Teto Gary MD Address [address] [place], [place] [phone] Care Team Providers Care Capper Machine Operator Name Role Phone Teto Gary Primary Care Provider Allergies Allergen (clinical drug ingredient) Drug/Non Drug Allergy documented on EMR Reaction Allergy Type Onset Date Status diphenhydramine Benadryl Unknown Drug Allergy A ctive REASON FOR VISIT was seen at [facility] for her[place], has already seen the [...] Date Provider Diagnosis Teto Gary MD [address] [place], [place] [phone] 11/13/2024 Teto Gary Mechanical heart valve present [...] Provider Name:Teto kaye, 09/13/2025 07:30:00 AM, [address], [address], [place], [place], [phone], Provider Name:Teto kaye, 09/20/2025 01:00:00 PM, [address], [address], [place], [place], [phone], Progress Notes * LAVERN LIVINGSTON RDOB:1950 (74 yo M)Acc No.[id number]:11/13/2024 Progress Notes Patient: LAVERN EDUARDO Provider: Naveen Gary MD :1950 A ge:74 Y S ex:Male Date:11/13/2024 Address:[address] [place] [address] [id number] Subjective: * Chief Complaints: * w as seen at [facility] for [place], has already seen the [...] concerned that he is not seeing a various exceptionalities teacher at present. memory has been bad for [...] 0 11/13/2024 Generated for Raffaele lara/Aminta/Nickitting on: 0 06/20/2025 04:27 PM EDT History and Physical Notes * [...] concerned that he is not seeing a various exceptionalities teacher at present. memory has been bad for [...]
--- OUTSIDE RECORDS SUMMARY | 2025-01-08 05:45 | XMS_ITS ---
Author Organization Teto Gary MD Address [address] [place] [phone] Care Team Providers Care Cuffer Name Role Phone CookieZacn Primary Care Provider REASON FOR VISIT FYI INR results Encounters Encounter Location Date Provider Diagnosis Teto Gary MD 10 [facility] [address] [place] [phone] 01/08/2025 Teto Gary Plan Of Treatment Next Appt Details Provider Name:Teto Sky ier, 09/13/2025 07:30:00 AM, [address] [place] [address], Suite [facility], [place], [place], [phone], Provider Name:Teto Sky ier, 09/20/2025 01:00:00 PM, [address] [place] [address], [place] [address], [place], [place], [phone], Progress Notes * LAVERN LIVINGSTON RDOB:1950 (74 yo M)Acc No.[id number]:01/08/2025 Patient: LAVERN EDUARDO :1950 A ge:74 Y S ex:Male Address:[address] [place] [address], [address] * true * Date: Generated for Raffaele lara/Aminta/Yasmine on: 0 06/20/2025 04:27 PM EDT
--- OUTSIDE RECORDS SUMMARY | 2025-03-09 03:15 | XMS_ITS ---
Author Organization Teto Gary MD Address [address] [place], [place] [phone] Care Team Providers Care Chief Engineering Division Name Role Phone Teto Gary Primary Care Provider [phone] Results Component Value Reference Range Notes Liver Panel Reviewed date:03/09/2025 04:17:25 PM Interpretation: Performing Lab:[facility], [address] [place] [phone] Notes/Report: Bilirubin Total 0.8 0.0-1.0 mg/dL Bilirubin Direct 0.3 0.0-0.5 mg/dL Aspartate Amino Transferase 27 5-37 U/L Alanine Aminotransferase 19 0-40 U/L Total Protein 7.1 6.5-8.0 g/dL Albumin Level 4.1 3.5-5.0 g/dL Alkaline Phosphatase 66 39-117 U/L Lipid Panel with Reflex Reviewed date:03/09/2025 04:17:09 PM Interpretation: Performing Lab:[facility], [address] [place] [phone] Notes/Report: Triglycerides 79 <150 mg/dL Desirable Triglyceride: [...] Location Date Provider Diagnosis Teto Gary MD [address] [place] [address] [place] [phone] 03/09/2025 Teto Gary Pure hypercholestero lemia E78.00 Assessments Encounter Date Diagnosis (ICD Code) Assessment Notes Treatment Notes Treatment Clinical Notes Section Notes 03/09/2025 Pure hypercholesterolemia (ICD-10 - E78.00) Plan Of Treatment Next Appt Details Provider Name:Teto Sky ier, 09/13/2025 07:30:00 AM, [address] [place] [address], Suite [facility], [place], [place], [phone], Provider Name:Teto Faithdebra ier, 09/20/2025 01:00:00 PM, [address] [place] [address], [place] [address], [place], [place], [phone], Progress Notes * LAVERN LIVINGSTON RDOB:1950 (74 yo M)Acc No.[id number]:03/09/2025 Progress Note Patient: LAVERN EDUARDO Provider: Naveen Gary MD :1950 A ge:74 Y S ex:Male Date:03/09/2025 Address:[address] [place], [place] [phone] Subjective: * Chief Complaints: * 1 . [...] 03/09/2025 Generated for Raffaele lara/Aminta/Nickitting on: 0 06/20/2025 04:27 PM EDT
--- OUTSIDE RECORDS SUMMARY | 2025-03-19 09:30 | XMS_ITS ---
Author Organization Teto Gary MD Address [address] [place], [place] [phone] Care Team Providers Care Magnetic Tape Winder Name Role Phone Teto Gary Primary Care [...] kg/m2 03/19/2025 weight is down 9 pounds [facility] e 11-13-24 Encounters Encounter Location Date Provider Diagnosis Teto Gary MD [address] [place] [address] [place] [phone] 03/19/2025 Teto Gary Bilateral carotid ar jacque [...] Details Provider Name:Teto kaye, 09/13/2025 07:30:00 AM, [address] [place] [address], [place] [address], [place], [place], [phone], Provider Name:Teto kaye, 09/20/2025 01:00:00 PM, [address] [place] [address], [place] [address], [place], [place], [phone], Progress Notes * LAVERN LIVINGSTON RDOB:1950 (74 yo M)Acc No.[id number]:03/19/2025 Progress Notes Patient: LAVERN EDUARDO Provider: Naveen Gary MD :1950 A ge:74 Y S ex:Male Date:03/19/2025 Address:[address] [place] [address] [id number] Subjective: * Chief Complaints: * 6 month [...] 0 03/19/2025 Generated for Bhupinderi marco/Aminta/eTransmitting on: 06/20/2025 04:28 PM EDT History and Physical Notes * [...]
--- NOTE | 2025-06-20 13:34 | MHC.OFFVISCO ---
Intake Intake Visit Reasons: Anticoagulation Allergies diphenhydramine (From BENADRYL) Allergy (Intermediate, Verified 06/20/25 13:31) RESTLESS LEGS lisinopril (LISINOPRIL) Allergy (Intermediate, Verified 06/20/25 13:31) DIZZINESS Lisiopril/HCTZ Allergy (Unknown, Uncoded 06/20/25 13:31) dizziness Medication List - Last Reconciled 06/20/25 by Noemi Holder RN acetaminophen 975 mg PO QID PRN amlodipine 10 mg PO DAILY docusate sodium 100 mg PO BID PRN levothyroxine 150 mcg PO DAILY losartan 25 mg PO DAILY metoprolol succinate ER 50 mg PO DAILY rosuvastatin 40 mg PO DAILY tamsulosin (Flomax) 0.4 mg PO DAILY warfarin 5 mg See Protocol PO DAILY Nursing Note INR: 2.5- in therapeutic range of 2-3 Medications and supplements reviewed- no changes No changes in health, diet, medications, or supplements, Denies any signs and symptoms of bleeding or bruising or clotting. 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
[2025-06-20 13:36] LABS: Prothrombin Time Whole Bld POC 29.4 sec (11.1-13.5); ~PT, ~INR - Anti Coag Clinic 2.5 (0.9-1.1)
--- OUTSIDE RECORDS SUMMARY | 2025-06-20 16:27 | XMS_ITS | Clinical Summary ---
Author Organization [facility] Address [address] [facility] [address] [place] [address] Phone Care Team Providers Care Stripping Cutter And Winder Name Role Phone Teto Gary MD Primary [...] this topic Insurance [employer]et[employer] MCR Adv PPO ([phone]) Aetna MCR Adv PPO ([phone]) Care Teams Stripping Cutter And Winder Relationship Specialty Start Date End Date Teto Gary MD [address] [place] [address] [address] [place], [place] PCP - General 10/21/20
--- OUTSIDE RECORDS SUMMARY | 2025-06-20 16:27 | XMS_ITS | Patient Health Record ---
Author Organization Teto Gary MD Address [address] [place], [place] [id number] Care Team Providers Care Computer Drafter Name Role Phone Teto Gary Primary Care Provider [phone] Allergies Allergen (clinical drug ingredient) Drug/Non Drug Allergy documented on EMR Reaction Allergy Type Onset Date Status diphenhydramine Benadryl Unknown Drug Allergy A ctive Results Component Value Reference Range Notes Complete Blood Count Auto Di ff Reviewed date:08/18/2024 12:47:17 PM Interpretation: Performing Lab:[facility], [address] [place] [phone] Notes/Report: White Blood Count 6.2 4.8-10.8 X10*3/uL [...] NRBC Abs Auto 0.000 0.0-0.012 X10*3/uL Comprehensive Webb. Panel Fa st Reviewed date:08/18/2024 01:03:50 PM Interpretation: Performing Lab:[facility], [address] [place] [phone] Notes/Report: Sodium 141 135-145 mmol/L Potassium 3.9 3.3-5.1 mmol/L Chloride 109 96-108 mmol/L Carbon Dioxide 25 22-29 mmol/L Anion Gap 11 12-20 Blood Urea Nitrogen 20 9-16 mg/dL Creatinine 1.31 0.5-1.4 mg/dL Estimated Glomerular Filt Rate 54 NOTE: For -Cuban individuals, multiply the result by 1.210. Chronic [...] 12:35:19 PM Interpretation: Performing Lab:[facility], [address] [place] [phone] Notes/Report: Triglycerides 84 <150 mg/dL Desirable Triglyceride: [...] 12:34:12 PM Interpretation: Performing Lab:[facility], [address] [place] [phone] Notes/Report: PSA,Total (Free>4and<10) 3.01 0.00-4.00 ng/mL A [...] AM Interpretation:ORQUIDEA 09/15 Performing Lab:[facility], [address] [place] [phone] Notes/Report: Urine, Clean Catch Color Urine Yellow Appearance Urine Clear PH 6.0 5.0-9.0 Glucose Urine UA Negative Negative mg/dL Urine Blood Large (3+) Negative Specific Matthews - Urine 1.015 1.005-1.025 Urine Protein 300 (3+) Neg-Trace mg/dL Urine Ketones Negative Negative mg/dL Nitrite Urine Negative Negative Leukocyte Esterase Urine Negative Negative RBC Urine >20 0-2 /HPF WBC Urine 0-5 0-5 /HPF Squamous Epithelial Cell Urine 0-2 0-2 /HPF Bacteria Urine None Seen None Seen Hyaline Casts Urine 0-2 0-2 /LPF Liver Panel Reviewed date:03/09/2025 04:17:25 PM Interpretation: Performing Lab:[facility], [address] [place] [phone] Notes/Report: Bilirubin Total 0.8 0.0-1.0 mg/dL Bilirubin Direct 0.3 0.0-0.5 mg/dL Aspartate Amino Transferase 27 5-37 U/L Alanine Aminotransferase 19 0-40 U/L Total Protein 7.1 6.5-8.0 g/dL Albumin Level 4.1 3.5-5.0 g/dL Alkaline Phosphatase 66 39-117 U/L Lipid Panel with Reflex Reviewed date:03/09/2025 04:17:09 PM Interpretation: Performing Lab:[facility], [address] [place] [phone] Notes/Report: Triglycerides 79 <150 mg/dL Desirable Triglyceride: [...] Guaiac Neg INR WHOLE BLOOD POC Reviewed date:07/10/2024 08:22:11 AM Interpretation: Performing Lab:[facility], [address] [place] [phone] Notes/Report: PT, INR - [facility] 2.9 0.9-1.1 METER #: [id number] INTERNATIONAL NORMALIZED RATIO (INR) REFERENCE RANGES Reference [...] 10:33:10 AM Interpretation: Performing Lab:[facility], [address] [place] [phone] Notes/Report: Prothrombin Time Whole Bld POC 34.9 11.1-13.5 sec INR WHOLE BLOOD POC Reviewed date:08/07/2024 12:29:32 PM Interpretation: Performing Lab:[facility], [address] [place] [phone] Notes/Report: PT, INR - [facility] 3.4 0.9-1.1 METER #: [id number] INTERNATIONAL NORMALIZED RATIO (INR) REFERENCE RANGES Reference [...] 12:28:11 PM Interpretation: Performing Lab:[facility], [address] [place] [phone] Notes/Report: Prothrombin Time Whole Bld POC 41.1 11.1-13.5 sec INR WHOLE BLOOD POC Reviewed date:08/21/2024 07:00:30 PM Interpretation: Performing Lab:[facility], [address] [place] [phone] Notes/Report: PT, INR - [facility] 2.0 0.9-1.1 METER #: [id number] INTERNATIONAL NORMALIZED RATIO (INR) REFERENCE RANGES Reference [...] 07:02:24 PM Interpretation: Performing Lab:[facility], [address] [place] [phone] Notes/Report: Prothrombin Time Whole Bld POC 24.1 11.1-13.5 sec INR WHOLE BLOOD POC Reviewed date:09/18/2024 12:40:45 PM Interpretation: Performing Lab:[facility], [address] [place] [phone] Notes/Report: PT, INR - [facility] 2.0 0.9-1.1 METER #: [id number] INTERNATIONAL NORMALIZED RATIO (INR) REFERENCE RANGES Reference [...] 12:44:30 PM Interpretation: Performing Lab:[facility], [address] [place] [phone] Notes/Report: Prothrombin Time Whole Bld POC 23.9 11.1-13.5 sec INR WHOLE BLOOD POC Reviewed date:10/16/2024 09:52:45 AM Interpretation: Performing Lab:[facility], [address] [place] [phone] Notes/Report: PT, INR - [facility] 3.6 0.9-1.1 METER #: [id number] INTERNATIONAL NORMALIZED RATIO (INR) REFERENCE RANGES Reference [...] 09:52:53 AM Interpretation: Performing Lab:[facility], [address] [place] [phone] Notes/Report: Prothrombin Time Whole Bld POC 43.8 11.1-13.5 sec INR WHOLE BLOOD POC Reviewed date:11/07/2024 04:28:35 PM Interpretation: Performing Lab:[facility], [address] [place] [phone] Notes/Report: PT, INR - [facility] 4.4 0.9-1.1 METER #: [id number] INTERNATIONAL NORMALIZED RATIO (INR) REFERENCE RANGES Reference [...] OC Reviewed date:11/07/2024 04:28:26 PM Interpretation: Performing Lab:[facility], [address] [place] [phone] Notes/Report: Prothrombin Time Whole Bld POC 52.3 11.1-13.5 sec INR WHOLE BLOOD POC Reviewed date:11/22/2024 05:40:44 PM Interpretation: Performing Lab:[facility], [address] [place] [phone] Notes/Report: PT, INR - [facility] 1.5 0.9-1.1 METER #: [id number] Doctor Notified INTERNATIONAL NORMALIZED RATIO (INR) REFERENCE [...] OC Reviewed date:11/22/2024 05:40:26 PM Interpretation: Performing Lab:[facility], [address] [place] [phone] Notes/Report: Prothrombin Time Whole Bld POC 17.8 11.1-13.5 sec INR WHOLE BLOOD POC Reviewed date:11/24/2024 12:39:31 PM Interpretation: Performing Lab:[facility], [address] [place] [phone] Notes/Report: PT, INR - [facility] 2.6 0.9-1.1 METER #: [id number] INTERNATIONAL NORMALIZED RATIO (INR) REFERENCE RANGES Reference [...] OC Reviewed date:11/24/2024 12:35:01 PM Interpretation: Performing Lab:[facility], [address] [place] [phone] Notes/Report: Prothrombin Time Whole Bld POC 30.8 11.1-13.5 sec INR WHOLE BLOOD POC Reviewed date:12/11/2024 11:04:14 AM Interpretation: Performing Lab:[facility], [address] [place] [phone] Notes/Report: PT, INR - [facility] 3.2 0.9-1.1 METER #: [id number] INTERNATIONAL NORMALIZED RATIO (INR) REFERENCE RANGES Reference [...] OC Reviewed date:12/11/2024 12:37:20 PM Interpretation: Performing Lab:[facility], [address] [place] [phone] Notes/Report: Prothrombin Time Whole Bld POC 38.2 11.1-13.5 sec INR WHOLE BLOOD POC Reviewed date:01/01/2025 12:32:57 PM Interpretation: Performing Lab:[facility], [address] [place] [phone] Notes/Report: PT, INR - [facility] 4.6 0.9-1.1 METER #: [id number] INTERNATIONAL NORMALIZED RATIO (INR) REFERENCE RANGES Reference [...] OC Reviewed date:01/01/2025 12:33:05 PM Interpretation: Performing Lab:[facility], [address] [place] [phone] Notes/Report: Prothrombin Time Whole Bld POC 54.9 11.1-13.5 sec INR WHOLE BLOOD POC Reviewed date:01/08/2025 12:19:34 PM Interpretation: Performing Lab:[facility], [address] [place] [phone] Notes/Report: PT, INR - [facility] 1.4 0.9-1.1 METER #: [id number] INTERNATIONAL NORMALIZED RATIO (INR) REFERENCE RANGES Reference [...] OC Reviewed date:01/08/2025 12:19:26 PM Interpretation: Performing Lab:[facility], [address] [place] [phone] Notes/Report: Prothrombin Time Whole Bld POC 16.7 11.1-13.5 sec INR WHOLE BLOOD POC Reviewed date:01/15/2025 08:45:45 AM Interpretation: Performing Lab:[facility], [address] [place] [phone] Notes/Report: PT, INR - [facility] 2.0 0.9-1.1 METER #: [id number] INTERNATIONAL NORMALIZED RATIO (INR) REFERENCE RANGES Reference [...] OC Reviewed date:01/15/2025 08:45:37 AM Interpretation: Performing Lab:[facility], [address] [place] [phone] Notes/Report: Prothrombin Time Whole Bld POC 23.9 11.1-13.5 sec INR WHOLE BLOOD POC Reviewed date:02/07/2025 04:59:10 PM Interpretation: Performing Lab:[facility], [address] [place] [phone] Notes/Report: PT, INR - [facility] 3.1 0.9-1.1 METER #: [id number] INTERNATIONAL NORMALIZED RATIO (INR) REFERENCE RANGES Reference [...] OC Reviewed date:02/07/2025 04:59:01 PM Interpretation: Performing Lab:[facility], [address] [place] [phone] Notes/Report: Prothrombin Time Whole Bld POC 37.7 11.1-13.5 sec INR WHOLE BLOOD POC Reviewed date:02/19/2025 12:25:05 PM Interpretation: Performing Lab:[facility], [address] [place] [phone] Notes/Report: PT, INR - [facility] 2.9 0.9-1.1 METER #: [id number] INTERNATIONAL NORMALIZED RATIO (INR) REFERENCE RANGES Reference [...] OC Reviewed date:02/19/2025 12:25:12 PM Interpretation: Performing Lab:[facility], [address] [place] [phone] Notes/Report: Prothrombin Time Whole Bld POC 34.3 11.1-13.5 sec Hold Gold Reviewed date:03/09/2025 04:15:47 PM Interpretation: Performing Lab:[facility], [address] [place] [phone] Notes/Report: Hold Gold See Note Specimen held untested for 24 hours; Call to request Chemistry testing. INR WHOLE BLOOD POC Reviewed date:03/12/2025 08:52:01 AM Interpretation: Performing Lab:[facility], [address] [place] [phone] Notes/Report: PT, INR - [facility] 2.3 0.9-1.1 METER #: [id number] INTERNATIONAL NORMALIZED RATIO (INR) REFERENCE RANGES Reference [...] OC Reviewed date:03/12/2025 08:51:47 AM Interpretation: Performing Lab:[facility], [address] [place] [phone] Notes/Report: Prothrombin Time Whole Bld POC 27.8 11.1-13.5 sec INR WHOLE BLOOD POC Reviewed date:04/02/2025 12:25:58 PM Interpretation: Performing Lab:[facility], [address] [place] [phone] Notes/Report: PT, INR - [facility] 4.4 0.9-1.1 METER #: [id number] INTERNATIONAL NORMALIZED RATIO (INR) REFERENCE RANGES Reference [...] OC Reviewed date:04/02/2025 12:26:06 PM Interpretation: Performing Lab:[facility], [address] [place] [phone] Notes/Report: Prothrombin Time Whole Bld POC 52.3 11.1-13.5 sec INR WHOLE BLOOD POC Reviewed date:04/09/2025 01:00:49 PM Interpretation: Performing Lab:[facility], [address] [place] [phone] Notes/Report: PT, INR - [facility] 2.0 0.9-1.1 METER #: [id number] INTERNATIONAL NORMALIZED RATIO (INR) REFERENCE RANGES Reference [...] OC Reviewed date:04/09/2025 11:54:02 AM Interpretation: Performing Lab:[facility], [address] [place] [phone] Notes/Report: Prothrombin Time Whole Bld POC 24.2 11.1-13.5 sec INR WHOLE BLOOD POC Reviewed date:04/16/2025 12:38:18 PM Interpretation: Performing Lab:[facility], [address] [place] [phone] Notes/Report: PT, INR - [facility] 3.0 0.9-1.1 METER #: [id number] INTERNATIONAL NORMALIZED RATIO (INR) REFERENCE RANGES Reference [...] OC Reviewed date:04/16/2025 12:38:10 PM Interpretation: Performing Lab:[facility], [address] [place] [phone] Notes/Report: Prothrombin Time Whole Bld POC 36.0 11.1-13.5 sec INR WHOLE BLOOD POC Reviewed date:05/04/2025 09:07:14 PM Interpretation: Performing Lab:[facility], [address] [place] [phone] Notes/Report: PT, INR - [facility] 3.1 0.9-1.1 METER #: [id number] INTERNATIONAL NORMALIZED RATIO (INR) REFERENCE RANGES Reference [...] OC Reviewed date:05/04/2025 09:06:52 PM Interpretation: Performing Lab:[facility], [address] [place] [phone] Notes/Report: Prothrombin Time Whole Bld POC 36.9 11.1-13.5 sec INR WHOLE BLOOD POC Reviewed date:05/21/2025 11:57:08 AM Interpretation: Performing Lab:[facility], [address] [place] [phone] Notes/Report: PT, INR - [facility] 4.5 0.9-1.1 METER #: [id number] INTERNATIONAL NORMALIZED RATIO (INR) REFERENCE RANGES Reference [...] OC Reviewed date:05/21/2025 11:57:15 AM Interpretation: Performing Lab:[facility], [address] [place] [phone] Notes/Report: Prothrombin Time Whole Bld POC 53.7 11.1-13.5 sec INR WHOLE BLOOD POC Reviewed date:05/28/2025 11:14:53 AM Interpretation: Performing Lab:[address] [phone] Notes/Report: PT, INR - [facility] 3.0 0.9-1.1 METER #: [id number] INTERNATIONAL NORMALIZED RATIO (INR) REFERENCE RANGES Reference [...] OC Reviewed date:05/28/2025 08:28:36 AM Interpretation: Performing Lab:[address] [address] Notes/Report: Prothrombin Time Whole Bld POC 36.1 11.1-13.5 sec INR WHOLE BLOOD POC Reviewed date:06/15/2025 02:49:16 PM Interpretation: Performing Lab:[address] [phone] Notes/Report: PT, INR - [facility] 1.5 0.9-1.1 METER #: [id number] Doctor Notified INTERNATIONAL NORMALIZED RATIO (INR) REFERENCE [...] Prothrombin Time Whole Bld P OC Reviewed date:06/15/2025 02:49:09 PM Interpretation: Performing Lab:[address] [address] Notes/Report: Prothrombin Time Whole Bld POC 17.5 11.1-13.5 sec INR WHOLE BLOOD POC (Not yet reviewed by provider) Interpretation: Performing Lab:[address] [address] Notes/Report: PT, INR - [facility] 2.5 0.9-1.1 METER #: [id number] INTERNATIONAL NORMALIZED RATIO (INR) REFERENCE RANGES Reference [...] (Not yet reviewed by provider) Interpretation: Performing Lab:[facility], [address] [place] [phone] Notes/Report: Prothrombin Time Whole Bld POC 29.4 11.1-13.5 sec Reason For Referral No Information [...] Problem Status W/U Status Risk Notes Problem 29101058 Prostatism (N40.0) Active confirmed Problem 88570472 Essential (prima ry) hypertension (I10) Active confirmed Problem 639128896929887 Erectile dysfunc tion due to arterial insufficiency (N52.01) Active confirmed Problem 7895467 Psoriasis (L40.9) Active confirmed Problem 793908685 Acquired hypothyroidism (E03.9) Active confirmed Problem 130179498 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) Active confirmed Problem 38828801 Alcohol abuse (F10.10) Active confirme d Problem 52024984 Heart murmur (R01.1) Active confirmed Problem 68614623 RBBB (I45.10) Active confirmed Problem 510688934 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) Active confirmed Problem 99529319 Chronic renal fa ilure, stage 3 (moderate) (N18.3) Active confirmed Problem 842382392 Pure hypercholesterolemia (E78.00) Active confirmed Problem 309439007 Other cardiac arrhythmia (I49.8) Active confirmed Problem 99217163299577 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) Active confirmed Problem 4541083516939249 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) Active confirmed Problem 065096853 Age-related inci pient cataract of both eyes (H25.093) Active confirmed Problem 512103335 Chronic kidney d isease (CKD) stage G1/A2, [...] Diagnosis Teto Gary MD [address] [place] [id number] 08/18/2024 Teto Gary Blood tests for rout ine general physical examination Z00.00 ; Essential (primary) hypertension I10 ; Pure hypercholesterolemia E78.00 ; Chronic kidney disease (CKD) stage G1/A2, glomerular filtration rate (GFR) equal to or greater than 90 mL/min/1.73 square meter and albuminuria creatinine ratio between 30-299 mg/g N18.1 and Prostatism N40.0 Teto Gary MD [address] [place] [id number] 03/09/2025 Teto Gary Pure hypercholestero lemia E78.00 Teto Gary MD [address] [place] [id number] 09/15/2024 Teto Gary Left inguinal hernia K40.90 ; Annual physical exam Z00.00 ; Mechanical heart valve present Z95.2 ; Essential (primary) hypertension I10 ; Microscopic hematuria R31.29 ; Prostatism N40.0 ; Pure hypercholesterolemia E78.00 ; Acquired hypothyroidism E03.9 ; Colon cancer screening Z12.11 and Depression screening Z13.31 Teto Gary MD [address] [place] [id number] 11/13/2024 Teto Gary Mechanical heart mary ve present Z95.2 ; Mild dementia without behavioral disturbance, psychotic disturbance, mood disturbance, or anxiety, unspecified dementia type F03.A0 and Heme positive stool R19.5 Teto Gary MD [address] [place] [id number] 03/19/2025 Teto Gary Bilateral carotid ar jacque disease I77.9 ; Pure hypercholesterolemia E78.00 and Leg pain M79.606 Teto Gary MD [address] [place] [address] [id number] 10/27/2024 Teto Gary MD [address] [place] [id number] 01/08/2025 Teto Gary Assessments Encounter Date Diagnosis [...] BILATERAL DOPPLER 08/04/2021 INR WHOLE BLOOD POC 06/20/2025 Prothrombin Time Whole Bld POC CT chest wo con 04/27/2022 CT chest wo con 05/28/2022 ECHO 04/22/2020 Future Test Test Name Order Date CT CHEST NO CONTRAST 06/26/2021 Next Appt Details Provider Name:Teto Lizzie Sky ier, 09/13/2025 07:30:00 AM, [address] [place] [address], [address], [place], [place], [phone], Provider Name:Teto Sky ier, 09/20/2025 01:00:00 PM, [address] [place] [address], [address], [place], [place], [phone], Insurance Providers Payer Name Payer Address Payer Phone Subscriber Number Group Number Insured Name Patient Relationship to Insured Coverage Start Date Coverage End Date [employer]AGE [address] [place] [id number] LAVERN LIVINGSTON Self - patient is the insured [facility] [address] [place] [address] [id number] LAVERN LIVINGSTON Self - patient is the [...]
== END 2025-06-20 13:42 | disposition home or self-care (01) ==
LOC: HO.ACS 13:24
PROVIDERS: PCP Internal Medicine; Visit Provider Internal Medicine Medical Oncology
DX: Z79.01 Long term (current) use of anticoagulants (principal)

== ENCOUNTER → 2025-06-20 13:24 | Outpatient (BNVA) | payer MEDICARE, MEDICAID, SELFPAY | PROVIDERS: PCP Internal Medicine; Visit Provider Internal Medicine Medical Oncology | DX: Z95.2 Presence of prosthetic heart valve (principal); Z79.01 Long term (current) use of anticoagulants; Z51.81 Encounter for therapeutic drug level monitoring | CPT/HCPCS: 85610; 99211 ==

== ENCOUNTER 2025-07-09 08:18 | Outpatient (AMB) | payer MEDICARE, MEDICAID, SELFPAY ==
[2025-07-09 08:26] LABS: Prothrombin Time Whole Bld POC 43.9 sec (11.1-13.5); ~PT, ~INR - Anti Coag Clinic 3.7 (0.9-1.1)
--- NOTE | 2025-07-09 08:27 | MHC.OFFVISCO ---
Intake Intake Visit Reasons: Anticoagulation Allergies diphenhydramine (From BENADRYL) Allergy (Intermediate, Verified 07/09/25 08:21) RESTLESS LEGS lisinopril (LISINOPRIL) Allergy (Intermediate, Verified 07/09/25 08:21) DIZZINESS Lisiopril/HCTZ Allergy (Unknown, Uncoded 07/09/25 08:21) dizziness Medication List - Last Reconciled 07/09/25 by Stefani Kelly RN acetaminophen 975 mg PO QID PRN amlodipine 10 mg PO DAILY docusate sodium 100 mg PO BID PRN levothyroxine 150 mcg PO DAILY losartan 25 mg PO DAILY metoprolol succinate ER 50 mg PO DAILY rosuvastatin 40 mg PO DAILY tamsulosin (Flomax) 0.4 mg PO DAILY warfarin 5 mg See Protocol PO DAILY Nursing Note INR: 3.7?out of therapeutic range of 2-3 Medications and supplements reviewed Patient status: pt states he has arthritis in knees and has been taking tylenol for discomfort daily Medications or supplements: no change Diet: no change Denies any signs and symptoms of bleeding or clotting or unusual bruising Bleeding, bruising, clotting discussed Nutritional guidance given: to increase his greens by 2 servings weekly while taking tylenol Dose: decrease today's dose to 5mg (10mg) then 10mg X6 days and 7.4mg X 1 day. Starting next week he will take 7.5mg X 2 days F/U INR Date: 2 weeks Patient verbalizing understanding of instructions given. 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
== END 2025-07-09 08:33 | disposition home or self-care (01) ==
LOC: HO.ACS 08:18
PROVIDERS: PCP Internal Medicine; Visit Provider Internal Medicine Medical Oncology
DX: Z79.01 Long term (current) use of anticoagulants (principal)

== ENCOUNTER → 2025-07-09 08:18 | Outpatient (BNVA) | payer MEDICARE, MEDICAID, SELFPAY | PROVIDERS: PCP Internal Medicine; Visit Provider Internal Medicine Medical Oncology | DX: Z95.2 Presence of prosthetic heart valve (principal); Z79.01 Long term (current) use of anticoagulants; Z51.81 Encounter for therapeutic drug level monitoring | CPT/HCPCS: 85610; 99211 ==

== ENCOUNTER 2025-07-24 13:31 | Outpatient (AMB) | payer MEDICARE, MEDICAID, SELFPAY ==
--- OUTSIDE RECORDS SUMMARY | 2024-11-13 07:30 | XMS_ITS ---
Author Organization Teto Gary MD Address [address] [place], [place] [phone] Care Team Providers Care Multiple Needle Stitcher Name Role Phone Teto Gary Primary Care Provider Allergies Allergen (clinical drug ingredient) Drug/Non Drug Allergy documented on EMR Reaction Allergy Type Onset Date Status diphenhydramine Benadryl Unknown Drug Allergy A ctive REASON FOR VISIT was seen at [facility] for hernia, has already seen the [...] Date Provider Diagnosis Teto Gary MD [address] [place], [place] [phone] 11/13/2024 Teto Gary Mechanical heart valve present [...] Up: 2 Months, Reason: Provider Name:Teto kaye, 07/30/2025 09:15:00 AM, [address] [facility], [address], [place], [place], [phone], Provider Name:Teto kaye, 09/13/2025 07:30:00 AM, [address], [address], [place], [place], [phone], Provider Name:Teto Sky ier, 09/20/2025 01:00:00 PM, [address], [address], [place], [place], [phone], Progress Notes * LAVERN LIVINGSTON RDOB:1950 (74 yo M)Acc No.[id number]:11/13/2024 Progress Notes Patient: LAVERN EDUARDO Provider: Naveen Gary MD :1950 A ge:74 Y S ex:Male Date:11/13/2024 Address:[address] [place], [place] [address], [facility] Subjective: * Chief Complaints: * w as seen at [facility] for hernia, has already seen the [...] concerned that he is not seeing a plumber cub at present. memory has been bad for [...] 0 11/13/2024 Generated for Raffaele lara/Aminta/Yasmine on: 04:23 PM EDT History and Physical Notes * [...] concerned that he is not seeing a plumber cub at present. memory has been bad for [...]
--- OUTSIDE RECORDS SUMMARY | 2025-01-08 05:45 | XMS_ITS ---
Author Organization Teto Gary MD Address [address] [place], [place] [phone] Care Team Providers Care Pastry Cook Apprentice Name Role Phone Cookie Teto Primary Care Provider REASON FOR VISIT FYI INR results Encounters Encounter Location Date Provider Diagnosis Teto Gary MD 10 [facility] [address] [place] [phone] 01/08/2025 Teto Gary Plan Of Treatment Next Appt Details Provider Name:Teto Sky ier, 07/30/2025 09:15:00 AM, [address] [place] [address], Suite [facility], [place], [place], [phone], Provider Name:Teto Sky ier, 09/13/2025 07:30:00 AM, [address] [place] [address], Suite [facility], [place], [place], [phone], Provider Name:Teto Sky ier, 09/20/2025 01:00:00 PM, [address] [place] [address], Suite [facility], [place], [place], [phone], Progress Notes * LAVERN LIVINGSTON RDOB:1950 (74 yo M)Acc No.[id number]:01/08/2025 Patient: LAVERN EDUARDO :1950 A ge:74 Y S ex:Male Address:[address] [place] [address], [address] * true * Date: Generated for Raffaele lara/Aminta/Nickitting on: 04:23 PM EDT
--- OUTSIDE RECORDS SUMMARY | 2025-03-09 03:15 | XMS_ITS ---
Author Organization Teto Gary MD Address [address] [place], [place] [phone] Care Team Providers Care Sales And Marketing Manager Name Role Phone Teto Gary Primary Care Provider Results Component Value Reference Range Notes Liver Panel Reviewed date:03/09/2025 04:17:25 PM Interpretation: Performing Lab:[facility], [address] [place] [phone] Notes/Report: Bilirubin Total 0.8 0.0-1.0 mg/dL Bilirubin Direct 0.3 0.0-0.5 mg/dL Aspartate Amino Transferase 27 5-37 U/L Alanine Aminotransferase 19 0-40 U/L Total Protein 7.1 6.5-8.0 g/dL Albumin Level 4.1 3.5-5.0 g/dL Alkaline Phosphatase 66 39-117 U/L Lipid Panel with Reflex Reviewed date:03/09/2025 04:17:09 PM Interpretation: Performing Lab:[facility], [address] [place] [phone] Notes/Report: Triglycerides 79 <150 mg/dL Desirable Triglyceride: [...] Date Provider Diagnosis Teto Gary MD [address] [place] [phone] 03/09/2025 Teto Gary Pure hypercholestero lemia E78.00 Assessments Encounter Date Diagnosis (ICD Code) Assessment Notes Treatment Notes Treatment Clinical Notes Section Notes 03/09/2025 Pure hypercholesterolemia (ICD-10 - E78.00) Plan Of Treatment Next Appt Details Provider Name:Teto Sky ier, 07/30/2025 09:15:00 AM, [address] [place] [address], [address], [phone], Provider Name:Teto Sky ier, 09/13/2025 07:30:00 AM, [address] [place] [address], [phone], Provider Name:Teto Sky ier, 09/20/2025 01:00:00 PM, [address] [place] [address], [address], [phone], Progress Notes * LAVERN LIVINGSTON RDOB:1950 (74 yo M)Acc No.[id number]:03/09/2025 Progress Note Patient: LAVERN EDUARDO Provider: Naveen Gary MD :1950 A ge:74 Y S ex:Male Date:03/09/2025 Address:[address] [place] [address] [id number] Subjective: * Chief Complaints: * 1 . [...] 0 03/09/2025 Generated for Raffaele lara/Aminta/Nickitting on: 04:23 PM EDT
--- OUTSIDE RECORDS SUMMARY | 2025-03-19 09:30 | XMS_ITS ---
Author Organization Teto Gary MD Address [address] [place], [place] [phone] Care Team Providers Care Cell Tender Helper Name Role Phone Teto Gary Primary Care [...] kg/m2 03/19/2025 weight is down 9 pounds [facility] e 11-13-24 Encounters Encounter Location Date Provider Diagnosis Teto Gary MD [address] [place] [phone] 03/19/2025 Teto Gary Bilateral carotid ar jacque [...] cause Next Appt Details Provider Name:Teto kaye, 07/30/2025 09:15:00 AM, [address] [place] [address], [place] [address], [place], [place], [phone], Provider Name:Teto kaye, 09/13/2025 07:30:00 AM, [address] [place] [address], [address], [phone], Provider Name:Teto kaye, 09/20/2025 01:00:00 PM, [address] [place] [address], [address], [phone], Progress Notes * LAVERN LIVINGSTON RDOB:1950 (74 yo M)Acc No.[id number]:03/19/2025 Progress Notes Patient: LAVERN EDUARDO Provider: Naveen Gary MD :1950 A ge:74 Y S ex:Male Date:03/19/2025 Address:[address] [place], [place] [phone] Subjective: * Chief Complaints: * 6 month [...] MD Date: 0 03/19/2025 Generated for Raffaele lara/Aminta/Mohsensmitting on: 1 04:23 PM EDT History and Physical Notes [...]
--- OUTSIDE RECORDS SUMMARY | 2025-07-05 06:26 | XMS_ITS ---
Author Organization Teto Gary MD Address [address] [place] [phone] Care Team Providers Care Certified Technician Name Role Phone Teto Gary Primary Care Provider [phone] REASON FOR VISIT ER Visit Encounters Encounter Location Date Provider Diagnosis Teto Gary MD 10 [facility] [address] [place] [phone] 07/05/2025 Teto Gary Plan Of Treatment Next Appt Details Provider Name:Teto Sky ier, 07/30/2025 09:15:00 AM, [address] [place] [address], [address] [place] [address], [phone], Provider Name:Teto Sky ier, 09/13/2025 07:30:00 AM, [address] [place] [address], [place] [address], [place], [place], [phone], Provider Name:Teto Sky ier, 09/20/2025 01:00:00 PM, [address] [place] [address], [address], [phone], Progress Notes * LAVERN LIVINGSTON RDOB:1950 (74 yo M)Acc No.[id number]:07/05/2025 Patient: LAVERN EDUARDO :1950 A ge:74 Y S ex:Male Address:[address] [place] [address], [place] [id number] * true * Date: Generated for Raffaele lara/Aminta/Nickitting on: 04:23 PM EDT
[2025-07-24 13:39] LABS: Prothrombin Time Whole Bld POC 21.1 sec (11.1-13.5); ~PT, ~INR - Anti Coag Clinic 1.8 (0.9-1.1)
--- NOTE | 2025-07-24 13:39 | MHC.OFFVISCO ---
Intake Intake Visit Reasons: Anticoagulation Allergies diphenhydramine (From BENADRYL) Allergy (Intermediate, Verified 07/24/25 13:32) RESTLESS LEGS lisinopril (LISINOPRIL) Allergy (Intermediate, Verified 07/24/25 13:32) DIZZINESS Lisiopril/HCTZ Allergy (Unknown, Uncoded 07/24/25 13:32) dizziness Medication List - Last Reconciled 07/24/25 by Stefani Kelly RN acetaminophen 975 mg PO QID PRN amlodipine 10 mg PO DAILY docusate sodium 100 mg PO BID PRN levothyroxine 150 mcg PO DAILY losartan 25 mg PO DAILY metoprolol succinate ER 50 mg PO DAILY rosuvastatin 40 mg PO DAILY tamsulosin (Flomax) 0.4 mg PO DAILY warfarin 5 mg See Protocol PO DAILY Nursing Note INR: 1.8 out of therapeutic range of 2-3 Medications and supplements reviewed Patient status: Previously was taking Tylenol arthritis for knee pain but stopped and started Advil instead. This could be why INR is low as warfarin dose was decreased on last visit to allow for Tylenol which raises the INR. Pt states he's going back to Tylenol as it worked better. Medications or supplements: as above Diet: no changes Denies any signs and symptoms of bleeding or clotting or unusual bruising Bleeding, bruising, clotting discussed Nutritional guidance given: to avoid greens X 2 days and to have a serving of the red vegetables. He states he will have beets tonight. Dose: 10mg X 5 days and 7.5mg X 2 days (Sun & Thurs) F/U INR Date: 2 weeks?? Patient verbalizing understanding of instructions with read back given. Coding Level of Care Code Est Patient Level 1 Diagnoses Current use of anticoagulant therapy Z79.01 Results AMB INR Fingerstick AMB INR Fingerstick 1.8 Last Edit by Stefani Kelly RN on 07/24/25 13:37 interface delay Assessment & Plan Assessment & Plan (1) Current use of anticoagulant therapy: Code(s): Z79.01 - shelter (current) 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
--- OUTSIDE RECORDS SUMMARY | 2025-07-24 16:23 | XMS_ITS | Patient Health Record ---
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 Panel Fa st Reviewed date:08/18/2024 01:03:50 PM Interpretation: Performing Lab:[facility], [address] [place] [phone] Notes/Report: Sodium 141 135-145 mmol/L Potassium 3.9 3.3-5.1 mmol/L Chloride 109 96-108 mmol/L Carbon Dioxide 25 22-29 mmol/L Anion Gap 11 12-20 Blood Urea Nitrogen 20 9-16 mg/dL Creatinine 1.31 0.5-1.4 mg/dL Estimated Glomerular Filt Rate 54 NOTE: For -[place] individuals, multiply the result by 1.210. Chronic [...] Panel Reviewed date:08/18/2024 12:35:19 PM Interpretation: Performing Lab:[facility], [address] [place] [phone] Notes/Report: Triglycerides 84 <150 mg/dL Desirable Triglyceride: [...] (Free>4and<10) Reviewed date:08/18/2024 12:34:12 PM Interpretation: Performing Lab:[facility], [address] [place] [phone] Notes/Report: PSA,Total (Free>4and<10) 3.01 0.00-4.00 ng/mL A [...] Reviewed date:09/18/2024 10:17:51 AM Interpretation:[place] 09/15 Performing Lab:[facility], [address] [place] [phone] Notes/Report: Urine, Clean Catch Color Urine Yellow Appearance Urine Clear PH 6.0 5.0-9.0 Glucose Urine UA Negative Negative mg/dL Urine Blood Large (3+) Negative Specific [place] - Urine 1.015 1.005-1.025 Urine Protein 300 [...] 04:17:25 PM Interpretation: Performing Lab:[facility], [address] [place] [phone] Notes/Report: Bilirubin Total 0.8 0.0-1.0 mg/dL Bilirubin Direct 0.3 0.0-0.5 mg/dL Aspartate Amino Transferase 27 5-37 U/L Alanine Aminotransferase 19 0-40 U/L Total Protein 7.1 6.5-8.0 g/dL Albumin Level 4.1 3.5-5.0 g/dL Alkaline Phosphatase 66 39-117 U/L Lipid Panel with Reflex Reviewed date:03/09/2025 04:17:09 PM Interpretation: Performing Lab:[facility], [address] [place] [phone] Notes/Report: Triglycerides 79 <150 mg/dL Desirable Triglyceride: [...] Guaiac Neg INR WHOLE BLOOD POC Reviewed date:08/07/2024 12:29:32 PM Interpretation: Performing Lab:[facility], [address] [place] [phone] Notes/Report: PT, INR - [facility] 3.4 0.9-1.1 METER #: [id number] INTERNATIONAL NORMALIZED RATIO (INR) REFERENCE RANGES Reference [...] OC Reviewed date:08/07/2024 12:28:11 PM Interpretation: Performing Lab:[facility], [address] [place] [phone] Notes/Report: Prothrombin Time Whole Bld POC 41.1 11.1-13.5 sec INR WHOLE BLOOD POC Reviewed date:08/21/2024 07:00:30 PM Interpretation: Performing Lab:[facility], [address] [place] [phone] Notes/Report: PT, INR - [facility] 2.0 0.9-1.1 METER #: [id number] INTERNATIONAL NORMALIZED RATIO (INR) REFERENCE RANGES Reference [...] OC Reviewed date:08/21/2024 07:02:24 PM Interpretation: Performing Lab:[facility], [address] [place] [phone] Notes/Report: Prothrombin Time Whole Bld POC 24.1 11.1-13.5 sec INR WHOLE BLOOD POC Reviewed date:09/18/2024 12:40:45 PM Interpretation: Performing Lab:[facility], [address] [place] [phone] Notes/Report: PT, INR - [facility] 2.0 0.9-1.1 METER #: [id number] INTERNATIONAL NORMALIZED RATIO (INR) REFERENCE RANGES Reference [...] OC Reviewed date:09/18/2024 12:44:30 PM Interpretation: Performing Lab:[facility], [address] [place] [phone] Notes/Report: Prothrombin Time Whole Bld POC 23.9 11.1-13.5 sec INR WHOLE BLOOD POC Reviewed date:10/16/2024 09:52:45 AM Interpretation: Performing Lab:[facility], [address] [place] [phone] Notes/Report: PT, INR - [facility] 3.6 0.9-1.1 METER #: [id number] INTERNATIONAL NORMALIZED RATIO (INR) REFERENCE RANGES Reference [...] OC Reviewed date:10/16/2024 09:52:53 AM Interpretation: Performing Lab:[facility], [address] [place] [phone] Notes/Report: Prothrombin Time Whole Bld POC 43.8 11.1-13.5 sec INR WHOLE BLOOD POC Reviewed date:11/07/2024 04:28:35 PM Interpretation: Performing Lab:[facility], [address] [place] [phone] Notes/Report: PT, INR - [facility] 4.4 0.9-1.1 METER #: [id number] INTERNATIONAL NORMALIZED RATIO (INR) REFERENCE RANGES Reference [...] OC Reviewed date:11/07/2024 04:28:26 PM Interpretation: Performing Lab:[facility], [address] [place] [phone] Notes/Report: Prothrombin Time Whole Bld POC 52.3 11.1-13.5 sec INR WHOLE BLOOD POC Reviewed date:11/22/2024 05:40:44 PM Interpretation: Performing Lab:[facility], [address] [place] [phone] Notes/Report: PT, INR - [facility] 1.5 0.9-1.1 METER #: [id number] Doctor Notified INTERNATIONAL NORMALIZED RATIO (INR) REFERENCE [...] OC Reviewed date:11/22/2024 05:40:26 PM Interpretation: Performing Lab:[facility], [address] [place] [phone] Notes/Report: Prothrombin Time Whole Bld POC 17.8 11.1-13.5 sec INR WHOLE BLOOD POC Reviewed date:11/24/2024 12:39:31 PM Interpretation: Performing Lab:[facility], [address] [place] [phone] Notes/Report: PT, INR - [facility] 2.6 0.9-1.1 METER #: [id number] INTERNATIONAL NORMALIZED RATIO (INR) REFERENCE RANGES Reference [...] OC Reviewed date:11/24/2024 12:35:01 PM Interpretation: Performing Lab:[facility], [address] [place] [phone] Notes/Report: Prothrombin Time Whole Bld POC 30.8 11.1-13.5 sec INR WHOLE BLOOD POC Reviewed date:12/11/2024 11:04:14 AM Interpretation: Performing Lab:[facility], [address] [place] [phone] Notes/Report: PT, INR - [facility] 3.2 0.9-1.1 METER #: [id number] INTERNATIONAL NORMALIZED RATIO (INR) REFERENCE RANGES Reference [...] OC Reviewed date:12/11/2024 12:37:20 PM Interpretation: Performing Lab:[facility], [address] [place] [phone] Notes/Report: Prothrombin Time Whole Bld POC 38.2 11.1-13.5 sec INR WHOLE BLOOD POC Reviewed date:01/01/2025 12:32:57 PM Interpretation: Performing Lab:[facility], [address] [place] [phone] Notes/Report: PT, INR - [facility] 4.6 0.9-1.1 METER #: [id number] INTERNATIONAL NORMALIZED RATIO (INR) REFERENCE RANGES Reference [...] OC Reviewed date:01/01/2025 12:33:05 PM Interpretation: Performing Lab:[facility], [address] [place] [phone] Notes/Report: Prothrombin Time Whole Bld POC 54.9 11.1-13.5 sec INR WHOLE BLOOD POC Reviewed date:01/08/2025 12:19:34 PM Interpretation: Performing Lab:[facility], [address] [place] [phone] Notes/Report: PT, INR - [facility] 1.4 0.9-1.1 METER #: [id number] INTERNATIONAL NORMALIZED RATIO (INR) REFERENCE RANGES Reference [...] OC Reviewed date:01/08/2025 12:19:26 PM Interpretation: Performing Lab:[facility], [address] [place] [phone] Notes/Report: Prothrombin Time Whole Bld POC 16.7 11.1-13.5 sec INR WHOLE BLOOD POC Reviewed date:01/15/2025 08:45:45 AM Interpretation: Performing Lab:[facility], [address] [place] [phone] Notes/Report: PT, INR - [facility] 2.0 0.9-1.1 METER #: [id number] INTERNATIONAL NORMALIZED RATIO (INR) REFERENCE RANGES Reference [...] OC Reviewed date:01/15/2025 08:45:37 AM Interpretation: Performing Lab:[facility], [address] [place] [phone] Notes/Report: Prothrombin Time Whole Bld POC 23.9 11.1-13.5 sec INR WHOLE BLOOD POC Reviewed date:02/07/2025 04:59:10 PM Interpretation: Performing Lab:[facility], [address] [place] [phone] Notes/Report: PT, INR - [facility] 3.1 0.9-1.1 METER #: [id number] INTERNATIONAL NORMALIZED RATIO (INR) REFERENCE RANGES Reference [...] OC Reviewed date:02/07/2025 04:59:01 PM Interpretation: Performing Lab:[facility], [address] [place] [phone] Notes/Report: Prothrombin Time Whole Bld POC 37.7 11.1-13.5 sec INR WHOLE BLOOD POC Reviewed date:02/19/2025 12:25:05 PM Interpretation: Performing Lab:[facility], [address] [place] [phone] Notes/Report: PT, INR - [facility] 2.9 0.9-1.1 METER #: [id number] INTERNATIONAL NORMALIZED RATIO (INR) REFERENCE RANGES Reference [...] OC Reviewed date:02/19/2025 12:25:12 PM Interpretation: Performing Lab:[facility], [address] [place] [phone] Notes/Report: Prothrombin Time Whole Bld POC 34.3 11.1-13.5 sec Hold Gold Reviewed date:03/09/2025 04:15:47 PM Interpretation: Performing Lab:[facility], [address] [place] [phone] Notes/Report: Hold Gold See Note Specimen held untested for 24 hours; Call to request Chemistry testing. INR WHOLE BLOOD POC Reviewed date:03/12/2025 08:52:01 AM Interpretation: Performing Lab:[facility], [address] [place] [phone] Notes/Report: PT, INR - [facility] 2.3 0.9-1.1 METER #: [id number] INTERNATIONAL NORMALIZED RATIO (INR) REFERENCE RANGES Reference [...] OC Reviewed date:03/12/2025 08:51:47 AM Interpretation: Performing Lab:[facility], [address] [place] [phone] Notes/Report: Prothrombin Time Whole Bld POC 27.8 11.1-13.5 sec INR WHOLE BLOOD POC Reviewed date:04/02/2025 12:25:58 PM Interpretation: Performing Lab:[facility], [address] [place] [phone] Notes/Report: PT, INR - [facility] 4.4 0.9-1.1 METER #: [id number] INTERNATIONAL NORMALIZED RATIO (INR) REFERENCE RANGES Reference [...] OC Reviewed date:04/02/2025 12:26:06 PM Interpretation: Performing Lab:[facility], [address] [place] [phone] Notes/Report: Prothrombin Time Whole Bld POC 52.3 11.1-13.5 sec INR WHOLE BLOOD POC Reviewed date:04/09/2025 01:00:49 PM Interpretation: Performing Lab:[facility], [address] [place] [phone] Notes/Report: PT, INR - [facility] 2.0 0.9-1.1 METER #: [id number] INTERNATIONAL NORMALIZED RATIO (INR) REFERENCE RANGES Reference [...] OC Reviewed date:04/09/2025 11:54:02 AM Interpretation: Performing Lab:[facility], [address] [place] [phone] Notes/Report: Prothrombin Time Whole Bld POC 24.2 11.1-13.5 sec INR WHOLE BLOOD POC Reviewed date:04/16/2025 12:38:18 PM Interpretation: Performing Lab:[facility], [address] [place] [phone] Notes/Report: PT, INR - [facility] 3.0 0.9-1.1 METER #: [id number] INTERNATIONAL NORMALIZED RATIO (INR) REFERENCE RANGES Reference [...] OC Reviewed date:04/16/2025 12:38:10 PM Interpretation: Performing Lab:[facility], [address] [place] [phone] Notes/Report: Prothrombin Time Whole Bld POC 36.0 11.1-13.5 sec INR WHOLE BLOOD POC Reviewed date:05/04/2025 09:07:14 PM Interpretation: Performing Lab:[facility], [address] [place] [phone] Notes/Report: PT, INR - [facility] 3.1 0.9-1.1 METER #: [id number] INTERNATIONAL NORMALIZED RATIO (INR) REFERENCE RANGES Reference [...] OC Reviewed date:05/04/2025 09:06:52 PM Interpretation: Performing Lab:[facility], [address] [place] [phone] Notes/Report: Prothrombin Time Whole Bld POC 36.9 11.1-13.5 sec INR WHOLE BLOOD POC Reviewed date:05/21/2025 11:57:08 AM Interpretation: Performing Lab:[facility], [address] [place] [phone] Notes/Report: PT, INR - [facility] 4.5 0.9-1.1 METER #: [id number] INTERNATIONAL NORMALIZED RATIO (INR) REFERENCE RANGES Reference [...] OC Reviewed date:05/21/2025 11:57:15 AM Interpretation: Performing Lab:[facility], [address] [place] [phone] Notes/Report: Prothrombin Time Whole Bld POC 53.7 11.1-13.5 sec INR WHOLE BLOOD POC Reviewed date:05/28/2025 11:14:53 AM Interpretation: Performing Lab:[facility], [address] [place] [phone] Notes/Report: PT, INR - [facility] 3.0 0.9-1.1 METER #: [id number] INTERNATIONAL NORMALIZED RATIO (INR) REFERENCE RANGES Reference [...] OC Reviewed date:05/28/2025 08:28:36 AM Interpretation: Performing Lab:[facility], [address] [place] [phone] Notes/Report: Prothrombin Time Whole Bld POC 36.1 11.1-13.5 sec INR WHOLE BLOOD POC Reviewed date:06/15/2025 02:49:16 PM Interpretation: Performing Lab:[address] [phone] Notes/Report: PT, INR - [facility] 1.5 0.9-1.1 METER #: [id number] Doctor Notified INTERNATIONAL NORMALIZED RATIO (INR) REFERENCE [...] OC Reviewed date:06/15/2025 02:49:09 PM Interpretation: Performing Lab:[address] [phone] Notes/Report: Prothrombin Time Whole Bld POC 17.5 11.1-13.5 sec INR WHOLE BLOOD POC Reviewed date:06/20/2025 05:56:33 PM Interpretation: Performing Lab:[address] [phone] Notes/Report: PT, INR - [facility] 2.5 0.9-1.1 METER #: [id number] INTERNATIONAL NORMALIZED RATIO (INR) REFERENCE RANGES Reference [...] Prothrombin Time Whole Bld P OC Reviewed date:06/20/2025 05:56:42 PM Interpretation: Performing Lab:[address] [phone] Notes/Report: Prothrombin Time Whole Bld POC 29.4 11.1-13.5 sec INR WHOLE BLOOD POC Reviewed date:07/09/2025 12:47:32 PM Interpretation: Performing Lab:[address] [phone] Notes/Report: PT, INR - [facility] 3.7 0.9-1.1 METER #: [id number] INTERNATIONAL NORMALIZED RATIO (INR) REFERENCE RANGES Reference [...] Prothrombin Time Whole Bld P OC Reviewed date:07/09/2025 12:47:39 PM Interpretation: Performing Lab:[address] [phone] Notes/Report: Prothrombin Time Whole Bld POC 43.9 11.1-13.5 sec INR WHOLE BLOOD POC (Not yet reviewed by provider) Interpretation: Performing Lab:[address] [phone] Notes/Report: PT, INR - [facility]ag [facility] 1.8 0.9-1.1 METER #: [id number] INTERNATIONAL NORMALIZED RATIO (INR) REFERENCE RANGES Reference [...] (Not yet reviewed by provider) Interpretation: Performing Lab:[address] [phone] Notes/Report: Prothrombin Time Whole Bld POC 21.1 11.1-13.5 sec Reason For Referral No Information [...] any alcohol x 1 month 08-19-23 patient silvia stopped drinking 2 weeks ago. Patient states drinks a pint of whiskey everyday. Today starts a new life no more drinking as of 08-04-21 has not had any alcohol x 1 month 08-19-23 patient silvia stopped drinking 2 weeks ago. 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) Active confirmed Problem 29233226 Alcohol abuse (F10.10) Active confirme d Problem 50539967 Heart murmur (R01.1) Active confirmed Problem 42710090 RBBB (I45.10) Active confirmed Problem 445272739 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) Active confirmed Problem 17005476 Chronic renal fa ilure, stage 3 (moderate) (N18.3) Active confirmed Problem 917033523 Pure hypercholesterolemia (E78.00) Active confirmed Problem 278647440 Other cardiac arrhythmia (I49.8) Active confirmed Problem 64389839314373 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) Active confirmed Problem 5502070242087732 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) Active confirmed Problem 671455773 Age-related inci pient cataract of both eyes (H25.093) Active confirmed Problem 725920615 Chronic kidney d isease (CKD) stage G1/A2, [...] Blood pressure systolic 128 mm Hg 03/19/2025 aidee ht is down 9 pounds since 11-13-24 Weight 257 lbs 03/19/2025 weight is down 9 pounds since 11-13-24 BMI 35.34 kg/m2 03/19/2025 weight is down 9 pounds since 11-13-24 Encounters Encounter Location Date Provider Diagnosis Teto Gary MD [address] [place] [id number] 08/18/2024 Teto Gary Blood tests for rout ine general physical examination Z00.00 ; Essential (primary) hypertension I10 ; Pure hypercholesterolemia E78.00 ; Chronic kidney disease (CKD) stage G1/A2, glomerular filtration rate (GFR) equal to or greater than 90 mL/min/1.73 square meter and albuminuria creatinine ratio between 30-299 mg/g N18.1 and Prostatism N40.0 Teto Gary MD [address] [place] [id number] 03/09/2025 Teto Gary Pure hypercholestero lemia E78.00 Teto Gary MD [address] [place] [address] Drive [address] [place] [id number] 09/15/2024 Teto Gary Left inguinal hernia K40.90 ; Annual physical exam Z00.00 ; Mechanical heart valve present Z95.2 ; Essential (primary) hypertension I10 ; Microscopic hematuria R31.29 ; Prostatism N40.0 ; Pure hypercholesterolemia E78.00 ; Acquired hypothyroidism E03.9 ; Colon cancer screening Z12.11 and Depression screening Z13.31 Teto Gary MD [address] [place] [id number] 11/13/2024 Teto Gary Mechanical heart mary ve present Z95.2 ; Mild dementia without behavioral disturbance, psychotic disturbance, mood disturbance, or anxiety, unspecified dementia type F03.A0 and Heme positive stool R19.5 Teto Gary MD [address] [place] [id number] 03/19/2025 Teto Gary Bilateral carotid ar jacque disease I77.9 ; Pure hypercholesterolemia E78.00 and Leg pain M79.606 Teto Gary MD [address] [place], [place] [id number] 10/27/2024 Teto Gary MD [address] [place] [id number] 01/08/2025 Teto Gary MD [address] [place] [id number] 07/05/2025 Teto Gary Assessments Encounter Date Diagnosis (ICD [...] to have it repaired immediately. reducible at [facility] he doesn't want to do anything 09/15/2024 [...] BILATERAL DOPPLER 08/04/2021 INR WHOLE BLOOD POC 07/24/2025 Prothrombin Time Whole Bld POC CT chest wo con 04/27/2022 CT chest wo con 05/28/2022 ECHO 04/22/2020 Future Test Test Name Order Date CT CHEST NO CONTRAST 06/26/2021 Next Appt Details Provider Name:Teto kaye, 07/30/2025 09:15:00 AM, [address] [place] [address], [address], [place], [id number], Provider Name:Teto kaye, 09/13/2025 07:30:00 AM, [address] [place] [address], Suite [facility], [place], [place], [id number], Provider Name:Teto Lizzie Jose Daniel ier, 09/20/2025 01:00:00 PM, [address], [address], [place], [place], [id number], Insurance Providers Payer Name Payer Address Payer Phone Subscriber Number Group Number Insured Name Patient Relationship to Insured Coverage Start Date Coverage End Date [employer]AGE [address] [facility], [place] [id number] [place] Self - patient is the insured [address] [address] [phone] [id number] [employer] [place] Self - patient is the [...]
== END 2025-07-24 13:50 | disposition home or self-care (01) ==
LOC: HO.ACS 13:31
PROVIDERS: PCP Internal Medicine; Visit Provider Internal Medicine Medical Oncology
DX: Z79.01 Long term (current) use of anticoagulants (principal)

== ENCOUNTER → 2025-07-24 13:31 | Outpatient (BNVA) | payer MEDICARE, MEDICAID, SELFPAY | PROVIDERS: PCP Internal Medicine; Visit Provider Internal Medicine Medical Oncology | DX: Z95.2 Presence of prosthetic heart valve (principal); Z79.01 Long term (current) use of anticoagulants; Z51.81 Encounter for therapeutic drug level monitoring | CPT/HCPCS: 85610; 99211 ==

== ENCOUNTER 2025-08-06 09:13 | Outpatient (AMB) | payer MEDICARE, MEDICAID, SELFPAY ==
[2025-08-06 09:30] LABS: Prothrombin Time Whole Bld POC 18.8 sec (11.1-13.5); ~PT, ~INR - Anti Coag Clinic 1.6 (0.9-1.1)
--- OUTSIDE RECORDS SUMMARY | 2025-08-06 10:04 | XMS_ITS | Clinical Summary ---
Author Organization [facility] Address [address] [facility] [address] [place] [address] Phone Care Team Providers Care Sausage Smoker Name Role Phone Teto Gary MD Primary [...] this topic Insurance [employer] MCR Adv PPO ([phone]) [employer] MCR Adv PPO ([phone]) Care Teams Sausage Smoker Relationship Specialty Start Date End Date Teto Gary MD [address] [place] [address] [address] [place], [place] PCP - General 10/21/20
--- NOTE | 2025-08-06 12:00 | MHC.OFFVISCO ---
Intake Intake Visit Reasons: Anticoagulation Allergies diphenhydramine (From BENADRYL) Allergy (Intermediate, Verified 08/06/25 09:14) RESTLESS LEGS lisinopril (LISINOPRIL) Allergy (Intermediate, Verified 08/06/25 09:14) DIZZINESS Lisiopril/HCTZ Allergy (Unknown, Uncoded 08/06/25 09:14) dizziness Medication List - Last Reconciled 08/06/25 by Nicole Mercado RN acetaminophen 975 mg PO QID PRN amlodipine 10 mg PO DAILY docusate sodium 100 mg PO BID PRN levothyroxine 150 mcg PO DAILY losartan 25 mg PO DAILY metoprolol succinate ER 50 mg PO DAILY rosuvastatin 40 mg PO DAILY tamsulosin (Flomax) 0.4 mg PO DAILY warfarin 5 mg See Protocol PO DAILY Nursing Note INR 1.6 out of therapeutic range- 2.0-3.0 for AVR- may have missed a dose Medications and supplements reviewed Patient status: has knee pain - was taking tyelnol then tried advil then back to tylenol, - pt aware of risks with nsaids and tylenol,enc heat or cold for pain, brace, and or topical treatments(which could also raise the INR). - he has an appt 08/22/25 Medications or supplements: no other changes Diet: good- had spinache Denies any signs and symptoms of bleeding or clotting or unusual bruising Bleeding, bruising, clotting discussed Nutritional guidance given: no greens today or tomorrow- eat orange or reds to help raise the INR Dose: 12.5mg today then 10mg daily f/u INR this Wednesday - too low for range F/U INR Date: 08/10/2025 ?? Patient verbalizing understanding of instructions given. T/C TO PCP REGARDING PT STATUS AND FOR [place] PRN INR 1.5 OR LESS - SPOKE WITH LORENZA- SHE STATED SHE WILL HAVE NURSE CALL BACK Coding Level of Care Code Est Patient Level 1 Diagnoses Current use of anticoagulant therapy Z79.01 Results AMB INR Fingerstick AMB INR Fingerstick 1.6 Last Edit by Nicole Mercado RN on 08/06/25 09:24 MANUAL ENTRY Assessment & Plan Assessment & Plan (1) Current use of anticoagulant therapy: Code(s): Z79.01 - group home (current) 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
== END 2025-08-06 09:33 | disposition home or self-care (01) ==
LOC: HO.ACS 09:13
PROVIDERS: PCP Internal Medicine; Visit Provider Internal Medicine Medical Oncology
DX: Z79.01 Long term (current) use of anticoagulants (principal)

== ENCOUNTER → 2025-08-06 09:13 | Outpatient (BNVA) | payer MEDICARE, MEDICAID, SELFPAY | PROVIDERS: PCP Internal Medicine; Visit Provider Internal Medicine Medical Oncology | DX: Z79.01 Long term (current) use of anticoagulants (principal) | CPT/HCPCS: 85610; 99211 ==

== ENCOUNTER 2025-08-10 13:54 | Outpatient (AMB) | payer MEDICARE, MEDICAID, SELFPAY ==
--- OUTSIDE RECORDS SUMMARY | 2024-08-18 04:00 | XMS_ITS ---
Author Organization Teto Gary MD Address [address] [place], [place] [phone] Care Team Providers Care Cardiac Nurse Name Role Phone Teto Gary Primary Care Provider [phone] Results Component Value Reference Range Notes Complete Blood Count Auto Di ff Reviewed date:08/18/2024 12:47:17 PM Interpretation: Performing Lab:[facility], [address] [place] [phone] Notes/Report: White Blood Count 6.2 4.8-10.8 X10*3/uL [...] NRBC Abs Auto 0.000 0.0-0.012 X10*3/uL Comprehensive [place]. Panel Fa st Reviewed date:08/18/2024 01:03:50 PM Interpretation: Performing Lab:[facility], [address] [place] [phone] Notes/Report: Sodium 141 135-145 mmol/L Potassium 3.9 3.3-5.1 mmol/L Chloride 109 96-108 mmol/L Carbon Dioxide 25 22-29 mmol/L Anion Gap 11 12-20 Blood Urea Nitrogen 20 9-16 mg/dL Creatinine 1.31 0.5-1.4 mg/dL Estimated Glomerular Filt Rate 54 NOTE: For -Trinidadian individuals, multiply the result by 1.210. Chronic [...] Panel Reviewed date:08/18/2024 12:35:19 PM Interpretation: Performing Lab:[address] [phone] Notes/Report: Triglycerides 84 <150 mg/dL Desirable Triglyceride: [...] (Free>4and<10) Reviewed date:08/18/2024 12:34:12 PM Interpretation: Performing Lab:[address] [phone] Notes/Report: PSA,Total (Free>4and<10) 3.01 0.00-4.00 ng/mL A [...] Reviewed date:09/18/2024 10:17:51 AM Interpretation:ORQUIDEA 09/15 Performing Lab:[address] [place] [address] Notes/Report: Urine, Clean Catch Color Urine Yellow Appearance Urine Clear PH 6.0 5.0-9.0 Glucose Urine UA Negative Negative mg/dL Urine Blood Large (3+) Negative Specific [place] - Urine 1.015 1.005-1.025 Urine Protein 300 [...] Location Date Provider Diagnosis Teto Gary MD [address] [place] [address] [place] [phone] 08/18/2024 Teto Gary Blood tests for rout [...] Details Provider Name:Teto kaye, 09/13/2025 07:30:00 AM, [address] [place] [address], [address], [place], [place], [phone], Provider Name:Teto kaye, 09/20/2025 01:00:00 PM, [address] [facility], [address], [place], [place], [phone], Progress Notes * LAVERN LIVINGSTON RDOB:1950 (74 yo M)Acc No.[id number]:08/18/2024 Progress Note Patient: LAVERN EDUARDO Provider: Naveen Gary MD :1950 A ge:73 Y S ex:Male Date:08/18/2024 Address:[address] [place], [place] [phone] Subjective: * Chief Complaints: * 1 . [...] Time - 08/18/2024 08:00 AM) ?LAB: Comprehensive [place]. Panel Fast (Collection Date & Time - [...] Time - 08/18/2024 08:00 AM) ?LAB: Comprehensive [place]. Panel Fast (Collection Date & Time - [...] Time - 08/18/2024 08:00 AM) ?LAB: Comprehensive [place]. Panel Fast (Collection Date & Time - [...] Time - 08/18/2024 08:00 AM) ?LAB: Comprehensive [place]. Panel Fast (Collection Date & Time - [...] Date: 10/18/2023 Generated for Raffaele lara/Aminta/Yasmine on: 02:47 PM EDT
--- OUTSIDE RECORDS SUMMARY | 2024-09-15 09:45 | XMS_ITS ---
Author Organization Teto Gary MD Address [address] [place], [place] [id number] Care Team Providers Care Wellness Director Name Role Phone Tteo Gary Primary Care Provider Allergies Allergen (clinical drug ingredient) Drug/Non Drug [...] Location Date Provider Diagnosis Teto Gary MD [address] [place] [address] [place] [phone] 09/15/2024 Teto Gary Left inguinal hernia K40.90 [...] Details Provider Name:Teto kaye, 09/13/2025 07:30:00 AM, [address] [place] [address], [address], [place], [place], [phone], Provider Name:Teto Syk ier, 09/20/2025 01:00:00 PM, [address], [address], [place], [phone], Progress Notes * LAVERN LIVINGSTON RDOB:1950 (74 yo M)Acc No.[id number]:09/15/2024 Progress Notes Patient: LAVERN EDUARDO Provider: Naveen Gary MD :1950 A ge:74 Y S ex:Male Date:09/15/2024 Address:[address] [place] [address] [place], [id number] Subjective: * Chief Complaints: * A NNUAL [...] 78 yrs. 1 daughter(s) . . Mother-Emphysema Father-[place] 1 brother 1 sister, Denies mental health/substance [...] Auto 0.000 0.0-0.012 - X10*3/uL L ab:Comprehensive [place]. Panel Fast (Order Date - 08/18/2024) (Collection [...] Date: 11/16/2023 Generated for Raffaele lara/Aminta/eTransmitting on: 1 02:46 PM EDT History and Physical Notes * HPI (History [...]
--- OUTSIDE RECORDS SUMMARY | 2024-10-27 06:12 | XMS_ITS ---
Author Organization Teto Gary MD Address [address] [place] [phone] Care Team Providers Care Timekeeper Name Role Phone CookieTeto Primary Care Provider [phone] REASON FOR VISIT ER Visit rec'd Encounters Encounter Location Date Provider Diagnosis Teto Gary MD 10 [facility] [address] [place] [phone] 10/27/2024 Teto Gary Plan Of Treatment Next Appt Details Provider Name:Teto Sky ier, 09/13/2025 07:30:00 AM, [address] [place] [address], Suite [facility], [place], [place], [phone], Provider Name:Teto kaye, 09/20/2025 01:00:00 PM, [address] [place] [address], [place] [address], [place], [place], [phone], Progress Notes * LAVERN LIVINGSTON RDOB:1950 (74 yo M)Acc No.[id number]:10/27/2024 Patient: LAVERN EDUARDO :1950 A ge:74 Y S ex:Male Address:[address] [place] [address], [address] * true * Date: Generated for Raffaele lara/Aminta/Yasmine on: 02:47 PM EDT
--- OUTSIDE RECORDS SUMMARY | 2024-11-13 07:30 | XMS_ITS ---
Author Organization Teto Gary MD Address [address] [place], [place] [phone] Care Team Providers Care Tree Pruner Name Role Phone Teto Gary Primary Care Provider [phone] Allergies Allergen (clinical drug ingredient) Drug/Non Drug Allergy documented on EMR Reaction Allergy Type Onset Date Status diphenhydramine Benadryl Unknown Drug Allergy A ctive REASON FOR VISIT was seen at [facility] for hernia, has [...] [address] [place], [place] [phone] 11/13/2024 Teto Gary Mechanical heart valve present [...] Provider Name:Teto kaye, 09/13/2025 07:30:00 AM, [address], [address], [place], [place], [phone], Provider Name:Teto kaye, 09/20/2025 01:00:00 PM, [address], [address], [place], [place], [phone], Progress Notes * LAVERN LIVINGSTON RDOB:1950 (74 yo M)Acc No.[id number]:11/13/2024 Progress Notes Patient: LAVERN EDUARDO Provider: Naveen Gary MD :1950 A ge:74 Y S ex:Male Date:11/13/2024 Address:[address] [place] [address] [id number] Subjective: * Chief Complaints: * w as seen at [facility] for hernia, has [...] concerned that he is not seeing a cloth washer at present. memory has been bad for [...] 11/13/2024 Generated for Raffaele lara/Aminta/Yasmine on: 1 02:48 PM EDT History and Physical Notes * [...] concerned that he is not seeing a cloth washer at present. memory has been bad for [...]
--- OUTSIDE RECORDS SUMMARY | 2025-01-08 05:45 | XMS_ITS ---
Author Organization Teto Gary MD Address [address] [place] [phone] Care Team Providers Care Party Plan Sales Unit Advisor Name Role Phone CookieZacn Primary Care Provider REASON FOR VISIT FYI INR results Encounters Encounter Location Date Provider Diagnosis Teto Gary MD 10 [facility] [address] [place] [phone] 01/08/2025 Teto Gary Plan Of Treatment Next Appt Details Provider Name:Teto Sky ier, 09/13/2025 07:30:00 AM, [address] [place] [address], Suite [facility], [place], [place], [phone], Provider Name:Teto Sky ier, 09/20/2025 01:00:00 PM, [address] [place] [address], [place] [address], [place], [place], [phone], Progress Notes * LAVERN LIVINGSTON RDOB:1950 (74 yo M)Acc No.[id number]:01/08/2025 Patient: LAVERN EDUARDO :1950 A ge:74 Y S ex:Male Address:[address] [place] [address], [address] * true * Date: Generated for Raffaele lara/Aminta/Yasmine on: 02:46 PM EDT
--- OUTSIDE RECORDS SUMMARY | 2025-03-09 03:15 | XMS_ITS ---
Author Organization Teto Gary MD Address [address] [place], [place] [phone] Care Team Providers Care Civil Attorney Name Role Phone Teto Gary Primary Care Provider Results Component Value Reference Range Notes Liver Panel Reviewed date:03/09/2025 04:17:25 PM Interpretation: Performing Lab:[facility], [address] [place] [phone] Notes/Report: Bilirubin Total 0.8 0.0-1.0 mg/dL Bilirubin Direct 0.3 0.0-0.5 mg/dL Aspartate Amino Transferase 27 5-37 U/L Alanine Aminotransferase 19 0-40 U/L Total Protein 7.1 6.5-8.0 g/dL Albumin Level 4.1 3.5-5.0 g/dL Alkaline Phosphatase 66 39-117 U/L Lipid Panel with Reflex Reviewed date:03/09/2025 04:17:09 PM Interpretation: Performing Lab:[facility], [address] [place] [phone] Notes/Report: Triglycerides 79 <150 mg/dL Desirable Triglyceride: [...] Location Date Provider Diagnosis Teto Gary MD [address] [place] [address] [place] [phone] 03/09/2025 Teto Gary Pure hypercholestero lemia E78.00 Assessments Encounter Date Diagnosis (ICD Code) Assessment Notes Treatment Notes Treatment Clinical Notes Section Notes 03/09/2025 Pure hypercholesterolemia (ICD-10 - E78.00) Plan Of Treatment Next Appt Details Provider Name:Teto Sky ier, 09/13/2025 07:30:00 AM, [address] [place] [address], Suite [facility], [place], [place], [phone], Provider Name:Teto Faithdebra ier, 09/20/2025 01:00:00 PM, [address] [place] [address], [place] [address], [place], [place], [phone], Progress Notes * LAVERN LIVINGSTON RDOB:1950 (74 yo M)Acc No.[id number]:03/09/2025 Progress Note Patient: LAVERN EDUARDO Provider: Naveen Gary MD :1950 A ge:74 Y S ex:Male Date:03/09/2025 Address:[address] [place], [place] [phone] Subjective: * Chief Complaints: * 1 . [...] 0 03/09/2025 Generated for Raffaele lara/Aminta/Nickitting on: 02:46 PM EDT
--- OUTSIDE RECORDS SUMMARY | 2025-03-19 09:30 | XMS_ITS ---
Author Organization Teto Gary MD Address [address] [place], [place] [phone] Care Team Providers Care Budget Report Clerk Name Role Phone Teto Gary Primary Care [...] kg/m2 03/19/2025 weight is down 9 pounds [facility] e 11-13-24 Encounters Encounter Location Date Provider Diagnosis Teto Gary MD [address] [place] [address] [place] [phone] 03/19/2025 Teto Gary Bilateral carotid ar jacque [...] Details Provider Name:Teto kaye, 09/13/2025 07:30:00 AM, [address] [place] [address], [place] [address], [place], [place], [phone], Provider Name:Teto kaye, 09/20/2025 01:00:00 PM, [address] [place] [address], [place] [address], [place], [place], [phone], Progress Notes * LAVERN LIVINGSTON RDOB:1950 (74 yo M)Acc No.[id number]:03/19/2025 Progress Notes Patient: LAVERN EDUARDO Provider: Naveen Gary MD :1950 A ge:74 Y S ex:Male Date:03/19/2025 Address:[address] [place] [address] [id number] Subjective: * Chief Complaints: * 6 month [...] 03/19/2025 Generated for Raffaele lara/Aminta/eTransmitting on: 1 02:48 PM EDT History and [...]
--- OUTSIDE RECORDS SUMMARY | 2025-07-05 06:26 | XMS_ITS ---
Author Organization Teto Gary MD Address [address] [place] [phone] Care Team Providers Care Primary School Principal Name Role Phone Cookie Teto Primary Care Provider [phone] REASON FOR VISIT ER Visit Encounters Encounter Location Date Provider Diagnosis Teto Gary MD 10 [facility] [address] [place] [phone] 07/05/2025 Teto Gary Plan Of Treatment Next Appt Details Provider Name:Teto Sky ier, 09/13/2025 07:30:00 AM, [address] [place] [address], [address] [place] [address], [phone], Provider Name:Teto Sky ier, 09/20/2025 01:00:00 PM, [address] [place] [address], [place] [address], [place], [place], [phone], Progress Notes * LAVERN LIVINGSTON RDOB:1950 (74 yo M)Acc No.[id number]:07/05/2025 Patient: LAVERN EDUARDO :1950 A ge:74 Y S ex:Male Address:[address] [place] [address], [id number] * true * Date: Generated for Raffaele lara/Aminta/Yasmine on: 02:47 PM EDT
--- OUTSIDE RECORDS SUMMARY | 2025-07-30 05:15 | XMS_ITS ---
Author Organization Teto Gary MD Address [address] [place], [place] [phone] Care Team Providers Care Service Developer Name Role Phone Cookie Teto Primary Care [...] kg/m2 07/30/2025 weight is down 2 pounds [facility] 03-19-25 Encounters Encounter Location Date Provider Diagnosis Teto Gary MD [address] [place] [address] [address] [place], [place] [phone] 07/30/2025 Teto Gary Leg pain, left M79.605 Assessments Encounter Date Diagnosis (ICD Code) Assessment Notes Treatment Notes Treatment Clinical Notes Section Notes 07/30/2025 Leg pain, left (ICD-10 - M79.605) not clear if all the pain is in the kinee and possibly related to spine. will refer to ortho and see if that works and if not to PSSP/ referral to [facility] Plan Of Treatment Treatment Notes Assessment Notes Leg pain, left not clear if all the pain is in the kinee and possibly related to spine. will refer to ortho and see if that works and if not to PSSP/ referral to [facility] Referrals Referral Date Details 07/30/2025 07/30/2025, left leg pain, CLAUDIA DEE Next Appt Details Provider Name:Teto kaye, 09/13/2025 07:30:00 AM, [address] [place] [address], [address], [place], [place], [phone], Provider Name:Teto kaye, 09/20/2025 01:00:00 PM, [address] [place] [address], [address], [place], [place], [phone], Progress Notes * LAVERN LIVINGSTON RDOB:1950 (74 yo M)Acc No.[id number]:07/30/2025 Progress Notes Patient: LAVERN EDUARDO Provider: Naveen Gary MD :1950 A ge:74 Y S ex:Male Date:07/30/2025 Address:[address] [place] [address], [facility] Subjective: * Chief Complaints: * K nee [...] Naveen Gary MD Date: Generated for Raffaele lara/Aminta/Yasmine on: 02:47 PM EDT History and Physical Notes * [...] 07/30/2025 Teto Gary DARYLE left leg p yannan
--- OUTSIDE RECORDS SUMMARY | 2025-08-06 10:14 | XMS_ITS ---
Author Organization Teto Gary MD Address [address] [place] [phone] Care Team Providers Care Wheel Shop Supervisor Name Role Phone Cookie Teto Primary Care Provider REASON FOR VISIT Low INR Encounters Encounter Location Date Provider Diagnosis Teto Gary MD 10 [facility] [address] [place] [phone] 08/06/2025 Teto Gary Plan Of Treatment Next Appt Details Provider Name:Teto Sky ier, 09/13/2025 07:30:00 AM, [address] [place] [address], [address] [place] [address], [phone], Provider Name:Teto Sky ier, 09/20/2025 01:00:00 PM, [address] [place] [address], [place] [address], [place], [place], [phone], Progress Notes * LAVERN LIVINGSTON RDOB:1950 (74 yo M)Acc No.[id number]:08/06/2025 Patient: LAVERN EDUARDO :1950 A ge:74 Y S ex:Male Address:[address] [place] [address], [address] * true * Date: Generated for Raffaele lara/Aminta/Yasmine on: 02:46 PM EDT
[2025-08-10 14:13] LABS: Prothrombin Time Whole Bld POC 44.3 sec (11.1-13.5); ~PT, ~INR - Anti Coag Clinic 3.7 (0.9-1.1)
--- NOTE | 2025-08-10 14:20 | MHC.OFFVISCO ---
Intake Intake Visit Reasons: Anticoagulation Allergies diphenhydramine (From BENADRYL) Allergy (Intermediate, Verified 08/10/25 14:08) RESTLESS LEGS lisinopril (LISINOPRIL) Allergy (Intermediate, Verified 08/10/25 14:08) DIZZINESS Lisiopril/HCTZ Allergy (Unknown, Uncoded 08/10/25 14:08) dizziness Medication List - Last Reconciled 08/10/25 by Nicole Mercado RN acetaminophen 975 mg PO QID PRN amlodipine 10 mg PO DAILY docusate sodium 100 mg PO BID PRN levothyroxine 150 mcg PO DAILY losartan 25 mg PO DAILY metoprolol succinate ER 50 mg PO DAILY rosuvastatin 40 mg PO DAILY tamsulosin (Flomax) 0.4 mg PO DAILY warfarin 5 mg See Protocol PO DAILY Nursing Note INR 3.7 out of therapeutic range Medications and supplements reviewed Patient status: Refrained from greens due to low INR, INR fluccuations due to knee pain and taking tylenol - has ortho appt in near future Medications or supplements: no other changes at this time Diet: good will resume weekly greens Denies any signs and symptoms of bleeding or clotting or unusual bruising Bleeding, bruising, clotting discussed Nutritional guidance given: greens today and weekly Dose: 7.5mg x 1 day/ 10mg x 6 days F/U INR Date: 10 days - 2 days prior ortho appt incase they can do a knee injection- enc to eat greens few days prior next [facility] appt incase an injection can be done to help relieve his pain.?? Patient verbalizing understanding of instructions given. Coding Level of Care Code Est Patient Level 1 Diagnoses Current use of anticoagulant therapy Z79.01 Results AMB INR Fingerstick AMB INR Fingerstick 3.7 Last Edit by Nicole Mercado RN on 08/10/25 14:15 manual entry Assessment & Plan Assessment & Plan (1) Current use of anticoagulant therapy: Code(s): Z79.01 - employment specialist (current) 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
--- OUTSIDE RECORDS SUMMARY | 2025-08-10 14:46 | XMS_ITS | Clinical Summary ---
Author Organization [facility] Address [address] [facility] [address] [place] [address] Phone Care Team Providers Care Orthopedic Shoe Fitter Name Role Phone Teto Gary MD Primary [...] this topic Insurance [employer] MCR Adv PPO ([phone]) [employer] MCR Adv PPO ([phone]) Care Teams Orthopedic Shoe Fitter Relationship Specialty Start Date End Date Teto Gary MD [address] [place] [address] [id number] [place], [place] PCP - General 10/21/20
--- OUTSIDE RECORDS SUMMARY | 2025-08-10 14:47 | XMS_ITS | Patient Health Record ---
Author Organization Teto Gary MD Address [address] [place], [place] [id number] Care Team Providers Care Automatic Beam Warper Tender Name Role Phone Teto Gary Primary Care Provider [phone] Allergies Allergen (clinical drug ingredient) Drug/Non Drug Allergy documented on EMR Reaction Allergy Type Onset Date Status diphenhydramine Benadryl Unknown Drug Allergy A ctive Results Component Value Reference Range Notes Complete Blood Count Auto Di ff Reviewed date:08/18/2024 12:47:17 PM Interpretation: Performing Lab:[facility] [place], [address] [place] [phone] Notes/Report: White Blood Count 6.2 4.8-10.8 X10*3/uL [...] NRBC Abs Auto 0.000 0.0-0.012 X10*3/uL Comprehensive [place]. Panel Fa st Reviewed date:08/18/2024 01:03:50 PM Interpretation: Performing Lab:[facility] [place], [address] [place] [phone] Notes/Report: Sodium 141 135-145 mmol/L Potassium 3.9 3.3-5.1 mmol/L Chloride 109 96-108 mmol/L Carbon Dioxide 25 22-29 mmol/L Anion Gap 11 12-20 Blood Urea Nitrogen 20 9-16 mg/dL Creatinine 1.31 0.5-1.4 mg/dL Estimated Glomerular Filt Rate 54 NOTE: For -[place] individuals, multiply the result by 1.210. Chronic [...] Panel Reviewed date:08/18/2024 12:35:19 PM Interpretation: Performing Lab:[facility] [place], [address] [place] [phone] Notes/Report: Triglycerides 84 <150 mg/dL Desirable Triglyceride: [...] (Free>4and<10) Reviewed date:08/18/2024 12:34:12 PM Interpretation: Performing Lab:[facility] [place], [address] [place] [phone] Notes/Report: PSA,Total (Free>4and<10) 3.01 0.00-4.00 ng/mL A [...] Reviewed date:09/18/2024 10:17:51 AM Interpretation:[place] 09/15 Performing Lab:[facility] [place], [address] [place] [phone] Notes/Report: Urine, Clean Catch Color Urine Yellow Appearance Urine Clear PH 6.0 5.0-9.0 Glucose Urine UA Negative Negative mg/dL Urine Blood Large (3+) Negative Specific [place] - Urine 1.015 1.005-1.025 Urine Protein 300 (3+) Neg-Trace mg/dL Urine Ketones Negative Negative mg/dL Nitrite Urine Negative Negative Leukocyte Esterase Urine Negative Negative RBC Urine >20 0-2 /HPF WBC Urine 0-5 0-5 /HPF Squamous Epithelial Cell Urine 0-2 0-2 /HPF Bacteria Urine None Seen None Seen Hyaline Casts Urine 0-2 0-2 /LPF Liver Panel Reviewed date:03/09/2025 04:17:25 PM Interpretation: Performing Lab:[facility] [place], [address] [place] [phone] Notes/Report: Bilirubin Total 0.8 0.0-1.0 mg/dL Bilirubin Direct 0.3 0.0-0.5 mg/dL Aspartate Amino Transferase 27 5-37 U/L Alanine Aminotransferase 19 0-40 U/L Total Protein 7.1 6.5-8.0 g/dL Albumin Level 4.1 3.5-5.0 g/dL Alkaline Phosphatase 66 39-117 U/L Lipid Panel with Reflex Reviewed date:03/09/2025 04:17:09 PM Interpretation: Performing Lab:[facility] [place], [address] [place] [phone] Notes/Report: Triglycerides 79 <150 mg/dL Desirable Triglyceride: [...] Guaiac Neg INR WHOLE BLOOD POC Reviewed date:08/21/2024 07:00:30 PM Interpretation: Performing Lab:[facility] [place], [address] [place] [phone] Notes/Report: PT, INR - Anti [facility]ag Clinic 2.0 0.9-1.1 METER #: [id number] INTERNATIONAL NORMALIZED RATIO (INR) REFERENCE RANGES Reference [...] OC Reviewed date:08/21/2024 07:02:24 PM Interpretation: Performing Lab:[facility] [place], [address] [place] [phone] Notes/Report: Prothrombin Time Whole Bld POC 24.1 11.1-13.5 sec INR WHOLE BLOOD POC Reviewed date:09/18/2024 12:40:45 PM Interpretation: Performing Lab:[facility] [place], [address] [place] [phone] Notes/Report: PT, INR - [facility] 2.0 0.9-1.1 METER #: [id number] INTERNATIONAL NORMALIZED RATIO (INR) REFERENCE RANGES Reference [...] OC Reviewed date:09/18/2024 12:44:30 PM Interpretation: Performing Lab:[facility] [place], [address] [place] [phone] Notes/Report: Prothrombin Time Whole Bld POC 23.9 11.1-13.5 sec INR WHOLE BLOOD POC Reviewed date:10/16/2024 09:52:45 AM Interpretation: Performing Lab:[facility] [place], [address] [place] [phone] Notes/Report: PT, INR - [facility] 3.6 0.9-1.1 METER #: [id number] INTERNATIONAL NORMALIZED RATIO (INR) REFERENCE RANGES Reference [...] OC Reviewed date:10/16/2024 09:52:53 AM Interpretation: Performing Lab:[facility] [place], [address] [place] [phone] Notes/Report: Prothrombin Time Whole Bld POC 43.8 11.1-13.5 sec INR WHOLE BLOOD POC Reviewed date:11/07/2024 04:28:35 PM Interpretation: Performing Lab:[facility] [place], [address] [place] [phone] Notes/Report: PT, INR - [facility] 4.4 0.9-1.1 METER #: [id number] INTERNATIONAL NORMALIZED RATIO (INR) REFERENCE RANGES Reference [...] OC Reviewed date:11/07/2024 04:28:26 PM Interpretation: Performing Lab:[facility] [place], [address] [place] [phone] Notes/Report: Prothrombin Time Whole Bld POC 52.3 11.1-13.5 sec INR WHOLE BLOOD POC Reviewed date:11/22/2024 05:40:44 PM Interpretation: Performing Lab:[facility] [place], [address] [place] [phone] Notes/Report: PT, INR - [facility] 1.5 0.9-1.1 METER #: [id number] Doctor Notified INTERNATIONAL NORMALIZED RATIO (INR) REFERENCE [...] OC Reviewed date:11/22/2024 05:40:26 PM Interpretation: Performing Lab:[facility] [place], [address] [place] [phone] Notes/Report: Prothrombin Time Whole Bld POC 17.8 11.1-13.5 sec INR WHOLE BLOOD POC Reviewed date:11/24/2024 12:39:31 PM Interpretation: Performing Lab:[facility] [place], [address] [place] [phone] Notes/Report: PT, INR - [facility] 2.6 0.9-1.1 METER #: [id number] INTERNATIONAL NORMALIZED RATIO (INR) REFERENCE RANGES Reference [...] OC Reviewed date:11/24/2024 12:35:01 PM Interpretation: Performing Lab:[facility] [place], [address] [place] [phone] Notes/Report: Prothrombin Time Whole Bld POC 30.8 11.1-13.5 sec INR WHOLE BLOOD POC Reviewed date:12/11/2024 11:04:14 AM Interpretation: Performing Lab:[facility] [place], [address] [place] [phone] Notes/Report: PT, INR - [facility] 3.2 0.9-1.1 METER #: [id number] INTERNATIONAL NORMALIZED RATIO (INR) REFERENCE RANGES Reference [...] OC Reviewed date:12/11/2024 12:37:20 PM Interpretation: Performing Lab:[facility] [place], [address] [place] [phone] Notes/Report: Prothrombin Time Whole Bld POC 38.2 11.1-13.5 sec INR WHOLE BLOOD POC Reviewed date:01/01/2025 12:32:57 PM Interpretation: Performing Lab:[facility] [place], [address] [place] [phone] Notes/Report: PT, INR - [facility] 4.6 0.9-1.1 METER #: [id number] INTERNATIONAL NORMALIZED RATIO (INR) REFERENCE RANGES Reference [...] OC Reviewed date:01/01/2025 12:33:05 PM Interpretation: Performing Lab:[facility] [place], [address] [place] [phone] Notes/Report: Prothrombin Time Whole Bld POC 54.9 11.1-13.5 sec INR WHOLE BLOOD POC Reviewed date:01/08/2025 12:19:34 PM Interpretation: Performing Lab:[facility] [place], [address] [place] [phone] Notes/Report: PT, INR - [facility] 1.4 0.9-1.1 METER #: [id number] INTERNATIONAL NORMALIZED RATIO (INR) REFERENCE RANGES Reference [...] OC Reviewed date:01/08/2025 12:19:26 PM Interpretation: Performing Lab:[facility] [place], [address] [place] [phone] Notes/Report: Prothrombin Time Whole Bld POC 16.7 11.1-13.5 sec INR WHOLE BLOOD POC Reviewed date:01/15/2025 08:45:45 AM Interpretation: Performing Lab:[facility] [place], [address] [place] [phone] Notes/Report: PT, INR - [facility] 2.0 0.9-1.1 METER #: [id number] INTERNATIONAL NORMALIZED RATIO (INR) REFERENCE RANGES Reference [...] OC Reviewed date:01/15/2025 08:45:37 AM Interpretation: Performing Lab:[facility] [place], [address] [place] [phone] Notes/Report: Prothrombin Time Whole Bld POC 23.9 11.1-13.5 sec INR WHOLE BLOOD POC Reviewed date:02/07/2025 04:59:10 PM Interpretation: Performing Lab:[facility] [place], [address] [place] [phone] Notes/Report: PT, INR - [facility] 3.1 0.9-1.1 METER #: [id number] INTERNATIONAL NORMALIZED RATIO (INR) REFERENCE RANGES Reference [...] OC Reviewed date:02/07/2025 04:59:01 PM Interpretation: Performing Lab:[facility] [place], [address] [place] [phone] Notes/Report: Prothrombin Time Whole Bld POC 37.7 11.1-13.5 sec INR WHOLE BLOOD POC Reviewed date:02/19/2025 12:25:05 PM Interpretation: Performing Lab:[facility] [place], [address] [place] [phone] Notes/Report: PT, INR - [facility] 2.9 0.9-1.1 METER #: [id number] INTERNATIONAL NORMALIZED RATIO (INR) REFERENCE RANGES Reference [...] OC Reviewed date:02/19/2025 12:25:12 PM Interpretation: Performing Lab:[facility] [place], [address] [place] [phone] Notes/Report: Prothrombin Time Whole Bld POC 34.3 11.1-13.5 sec Hold Gold Reviewed date:03/09/2025 04:15:47 PM Interpretation: Performing Lab:[facility] [place], [address] [place] [phone] Notes/Report: Hold Gold See Note Specimen held untested for 24 hours; Call to request Chemistry testing. INR WHOLE BLOOD POC Reviewed date:03/12/2025 08:52:01 AM Interpretation: Performing Lab:[facility] [place], [address] [place] [phone] Notes/Report: PT, INR - [facility] 2.3 0.9-1.1 METER #: [id number] INTERNATIONAL NORMALIZED RATIO (INR) REFERENCE RANGES Reference [...] OC Reviewed date:03/12/2025 08:51:47 AM Interpretation: Performing Lab:[facility] [place], [address] [place] [phone] Notes/Report: Prothrombin Time Whole Bld POC 27.8 11.1-13.5 sec INR WHOLE BLOOD POC Reviewed date:04/02/2025 12:25:58 PM Interpretation: Performing Lab:[facility] [place], [address] [place] [phone] Notes/Report: PT, INR - [facility] 4.4 0.9-1.1 METER #: [id number] INTERNATIONAL NORMALIZED RATIO (INR) REFERENCE RANGES Reference [...] OC Reviewed date:04/02/2025 12:26:06 PM Interpretation: Performing Lab:[facility] [place], [address] [place] [phone] Notes/Report: Prothrombin Time Whole Bld POC 52.3 11.1-13.5 sec INR WHOLE BLOOD POC Reviewed date:04/09/2025 01:00:49 PM Interpretation: Performing Lab:[facility] [place], [address] [place] [phone] Notes/Report: PT, INR - [facility] 2.0 0.9-1.1 METER #: [id number] INTERNATIONAL NORMALIZED RATIO (INR) REFERENCE RANGES Reference [...] OC Reviewed date:04/09/2025 11:54:02 AM Interpretation: Performing Lab:[facility] [place], [address] [place] [phone] Notes/Report: Prothrombin Time Whole Bld POC 24.2 11.1-13.5 sec INR WHOLE BLOOD POC Reviewed date:04/16/2025 12:38:18 PM Interpretation: Performing Lab:[facility] [place], [address] [place] [phone] Notes/Report: PT, INR - [facility] 3.0 0.9-1.1 METER #: [id number] INTERNATIONAL NORMALIZED RATIO (INR) REFERENCE RANGES Reference [...] OC Reviewed date:04/16/2025 12:38:10 PM Interpretation: Performing Lab:[address] [phone] Notes/Report: Prothrombin Time Whole Bld POC 36.0 11.1-13.5 sec INR WHOLE BLOOD POC Reviewed date:05/04/2025 09:07:14 PM Interpretation: Performing Lab:[facility] [place], [address] [place] [phone] Notes/Report: PT, INR - [facility] 3.1 0.9-1.1 METER #: [id number] INTERNATIONAL NORMALIZED RATIO (INR) REFERENCE RANGES Reference [...] OC Reviewed date:05/04/2025 09:06:52 PM Interpretation: Performing Lab:[facility] [place], [address] [place] [phone] Notes/Report: Prothrombin Time Whole Bld POC 36.9 11.1-13.5 sec INR WHOLE BLOOD POC Reviewed date:05/21/2025 11:57:08 AM Interpretation: Performing Lab:[facility] [place], [address] [place] [phone] Notes/Report: PT, INR - [facility] 4.5 0.9-1.1 METER #: [id number] INTERNATIONAL NORMALIZED RATIO (INR) REFERENCE RANGES Reference [...] OC Reviewed date:05/21/2025 11:57:15 AM Interpretation: Performing Lab:[facility] [place], [address] [place] [phone] Notes/Report: Prothrombin Time Whole Bld POC 53.7 11.1-13.5 sec INR WHOLE BLOOD POC Reviewed date:05/28/2025 11:14:53 AM Interpretation: Performing Lab:[facility] [place], [address] [place] [phone] Notes/Report: PT, INR - [facility] 3.0 0.9-1.1 METER #: [id number] INTERNATIONAL NORMALIZED RATIO (INR) REFERENCE RANGES Reference [...] OC Reviewed date:05/28/2025 08:28:36 AM Interpretation: Performing Lab:[facility] [place], [address] [place] [phone] Notes/Report: Prothrombin Time Whole Bld POC 36.1 11.1-13.5 sec INR WHOLE BLOOD POC Reviewed date:06/15/2025 02:49:16 PM Interpretation: Performing Lab:[facility] [place], [address] [place] [phone] Notes/Report: PT, INR - [facility] 1.5 0.9-1.1 METER #: [id number] Doctor Notified INTERNATIONAL NORMALIZED RATIO (INR) REFERENCE [...] OC Reviewed date:06/15/2025 02:49:09 PM Interpretation: Performing Lab:[facility] [place], [address] [place] [phone] Notes/Report: Prothrombin Time Whole Bld POC 17.5 11.1-13.5 sec INR WHOLE BLOOD POC Reviewed date:06/20/2025 05:56:33 PM Interpretation: Performing Lab:[facility] [place], [address] [place] [phone] Notes/Report: PT, INR - [facility] 2.5 0.9-1.1 METER #: [id number] INTERNATIONAL NORMALIZED RATIO (INR) REFERENCE RANGES Reference [...] OC Reviewed date:06/20/2025 05:56:42 PM Interpretation: Performing Lab:[facility] [place], [address] [place] [phone] Notes/Report: Prothrombin Time Whole Bld POC 29.4 11.1-13.5 sec INR WHOLE BLOOD POC Reviewed date:07/09/2025 12:47:32 PM Interpretation: Performing Lab:[facility] [place], [address] [place] [phone] Notes/Report: PT, INR - [facility] 3.7 0.9-1.1 METER #: [id number] INTERNATIONAL NORMALIZED RATIO (INR) REFERENCE RANGES Reference [...] OC Reviewed date:07/09/2025 12:47:39 PM Interpretation: Performing Lab:[facility] [place], [address] [place] [phone] Notes/Report: Prothrombin Time Whole Bld POC 43.9 11.1-13.5 sec INR WHOLE BLOOD POC Reviewed date:07/24/2025 05:01:48 PM Interpretation: Performing Lab:[facility] [place], [address] [place] [phone] Notes/Report: PT, INR - [facility] 1.8 0.9-1.1 METER #: [id number] INTERNATIONAL NORMALIZED RATIO (INR) REFERENCE RANGES Reference [...] Prothrombin Time Whole Bld P OC Reviewed date:07/24/2025 05:01:57 PM Interpretation: Performing Lab:[facility] [place], [address] [place] [phone] Notes/Report: Prothrombin Time Whole Bld POC 21.1 11.1-13.5 sec INR WHOLE BLOOD POC Reviewed date:08/06/2025 12:32:56 PM Interpretation: Performing Lab:[facility] [place], [address] [place] [phone] Notes/Report: PT, INR - [facility] 1.6 0.9-1.1 METER #: [id number] INTERNATIONAL NORMALIZED RATIO (INR) REFERENCE RANGES Reference [...] Prothrombin Time Whole Bld P OC Reviewed date:08/06/2025 12:32:48 PM Interpretation: Performing Lab:[facility] [place], [address] [place] [phone] Notes/Report: Prothrombin Time Whole Bld POC 18.8 11.1-13.5 sec INR WHOLE BLOOD POC (Not yet reviewed by provider) Interpretation: Performing Lab:[facility] [place], [address] [place] [phone] Notes/Report: PT, INR - [facility]ag [facility] 3.7 0.9-1.1 METER #: [id number] INTERNATIONAL NORMALIZED RATIO (INR) REFERENCE RANGES Reference [...] (Not yet reviewed by provider) Interpretation: Performing Lab:[facility] [place], [address] [place] [phone] Notes/Report: Prothrombin Time Whole Bld POC 44.3 11.1-13.5 sec Reason For Referral Reason left leg pain [...] Referral Priority Routine Referral Appointment Date 08/22/2025 Medications Medication SIG (Take, Route, Frequency, Duration) [...] ORALLY ONCE A DAY 90 DAYS Active Losartan Potassium 25 MG TAKE 1 TABLET B Y MOUTH EVERY DAY FOR 90 DAYS for 90 Active Tamsulosin HCl 0.4 MG TAKE 1 CAPSULE BY MOUTH EVERY DAY for 90 Active Sildenafil Citrate 100 MG [...] Refused Influenza High Dose Unknown 08/12/2023 Refused Influenza High Dose Unknown 07/30/2025 Refused Social History Tobacco Use: Social History [...] Problem Status W/U Status Risk Notes Problem 25389565 Prostatism (N40.0) Active confirmed Problem 02031153 Essential (prima ry) hypertension (I10) Active confirmed Problem 379585743052761 Erectile dysfunc tion due to arterial insufficiency (N52.01) Active confirmed Problem 7732165 Psoriasis (L40.9) Active confirmed Problem 511142828 Acquired hypothyroidism (E03.9) Active confirmed Problem 054336841 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) Active confirmed Problem 32915447 Alcohol abuse (F10.10) Active confirme d Problem 47390151 Heart murmur (R01.1) Active confirmed Problem 49776955 RBBB (I45.10) Active confirmed Problem 570262472 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) Active confirmed Problem 40443803 Chronic renal fa ilure, stage 3 (moderate) (N18.3) Active confirmed Problem 435754949 Pure hypercholesterolemia (E78.00) Active confirmed Problem 459357663 Other cardiac arrhythmia (I49.8) Active confirmed Problem 48551655854156 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) Active confirmed Problem 5053241207206761 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) Active confirmed Problem 093533098 Age-related inci pient cataract of both eyes (H25.093) Active confirmed Problem 137511332 Chronic kidney d isease (CKD) stage G1/A2, glomerular filtration rate (GFR) equal to or greater than 90 mL/min/1.73 square meter and albuminuria creatinine ratio between 30-299 mg/g (N18.1) Active confirmed Vital Signs Blood pressure diastolic 60 mm Hg 07/30/2025 sonja ght is down 2 pounds since 03-19-25 Height 71.5 in 07/30/2025 weight is down 2 pounds since 03-19-25 Blood pressure systolic 142 mm Hg 07/30/2025 weig ht is down 2 pounds since 03-19-25 Weight 255 lbs 07/30/2025 weight is down 2 pounds since 03-19-25 BMI 35.07 kg/m2 07/30/2025 weight is down 2 pounds since 03-19-25 Encounters Encounter Location Date Provider Diagnosis Teto Gary MD [address] [place], [place] [id number] 08/18/2024 Teto Gary Blood tests for rout ine general physical examination Z00.00 ; Essential (primary) hypertension I10 ; Pure hypercholesterolemia E78.00 ; Chronic kidney disease (CKD) stage G1/A2, glomerular filtration rate (GFR) equal to or greater than 90 mL/min/1.73 square meter and albuminuria creatinine ratio between 30-299 mg/g N18.1 and Prostatism N40.0 eTto Gary MD [address] [place] [id number] 03/09/2025 Teto Gary Pure hypercholestero lemia E78.00 Teto Gary MD [address] [place] [id number] 09/15/2024 Teto Gary Left inguinal hernia K40.90 ; Annual physical exam Z00.00 ; Mechanical heart valve present Z95.2 ; Essential (primary) hypertension I10 ; Microscopic hematuria R31.29 ; Prostatism N40.0 ; Pure hypercholesterolemia E78.00 ; Acquired hypothyroidism E03.9 ; Colon cancer screening Z12.11 and Depression screening Z13.31 Teto Gary MD [address] [place] [id number] 11/13/2024 Teto Gary Mechanical heart mary ve present Z95.2 ; Mild dementia without behavioral disturbance, psychotic disturbance, mood disturbance, or anxiety, unspecified dementia type F03.A0 and Heme positive stool R19.5 Teto Gary MD [address] [place] [id number] 03/19/2025 Teto Gary Bilateral carotid ar jacque disease I77.9 ; Pure hypercholesterolemia E78.00 and Leg pain M79.606 Teto Gary MD [address] [place] [id number] 07/30/2025 Teto Gary Leg pain, left M79.6 05 Teto Gary MD [address] [place] [id number] 10/27/2024 Teto Gary MD [address] [place] [id number] 01/08/2025 Teto Gary MD [address] [place] [id number] 07/05/2025 Teto Gary MD [address] [place] [address], [place] [id number] 08/06/2025 Teto Gary Assessments Encounter Date Diagnosis (ICD [...] has good numbers, will continue current regiment 07/30/2025 Leg pain, left (ICD- 10 - M79.605) not clear if all the pain is in the k[place] and possibly related to spine. will refer to ortho and see if that works and if not to [facility]/ referral to [facility] 08/18/2024 Pure hypercholesterolemia (ICD-10 - E78.00) 09/15/2024 [...] BILATERAL DOPPLER 08/04/2021 INR WHOLE BLOOD POC 08/10/2025 Prothrombin Time Whole Bld POC CT chest wo con 04/27/2022 CT chest wo con 05/28/2022 ECHO 04/22/2020 Future Test Test Name Order Date CT CHEST NO CONTRAST 06/26/2021 Next Appt Details Provider Name:Teto Sky ier, 09/13/2025 07:30:00 AM, [address] [place] [address], [address], [place], [place], [id number], Provider Name:Teto Sky ier, 09/20/2025 01:00:00 PM, [address] [place] [address], [address], [place], [place], [id number], Insurance Providers Payer Name Payer Address Payer Phone Subscriber Number Group Number Insured Name Patient Relationship to Insured Coverage Start Date Coverage End Date [employer]AGE [address] [place], [place] [id number] [employer] - patient is the insured [address] [address] [id number] [employer] - patient is the insured Medical (General) [...]
== END 2025-08-10 14:29 | disposition home or self-care (01) ==
LOC: HO.ACS 13:54
PROVIDERS: PCP Internal Medicine; Visit Provider Internal Medicine Medical Oncology
DX: Z79.01 Long term (current) use of anticoagulants (principal)

== ENCOUNTER → 2025-08-10 13:54 | Outpatient (BNVA) | payer MEDICARE, MEDICAID, SELFPAY | PROVIDERS: PCP Internal Medicine; Visit Provider Internal Medicine Medical Oncology | DX: Z95.2 Presence of prosthetic heart valve (principal); Z79.01 Long term (current) use of anticoagulants; Z51.81 Encounter for therapeutic drug level monitoring | CPT/HCPCS: 85610; 99211 ==

== ENCOUNTER 2025-08-20 07:58 | Outpatient (AMB) | payer MEDICARE, MEDICAID, SELFPAY ==
--- OUTSIDE RECORDS SUMMARY | 2024-08-18 03:00 | XMS_ITS ---
Author Organization Teto Gary MD Address [address] [place], [place] [phone] Care Team Providers Care Parachute Cushion Installer Name Role Phone Teto Gary Primary Care Provider Results Component Value Reference Range Notes Complete Blood Count Auto Di ff Reviewed date:08/18/2024 12:47:17 PM Interpretation: Performing Lab:[facility], [address] [place] [phone] Notes/Report: White Blood Count 6.2 4.8-10.8 X10*3/uL Red Blood Count 4.34 4.60-5.80 X10*6/uL Hemoglobin 12.8 14.0-18.0 g/dl Hematocrit 39.5 42.0-52.0 % Mean Corpuscular Volume 91.0 80.0-98.0 fL Mean Corpuscular Hemoglobin 29.5 27.0-33.0 pg Mean Corpuscular HGB Conc 32.4 31.0-36.0 g/dl Red Cell Distribution Width 14.7 11.0-16.0 % Platelet Count 205 160-400 X10*3/uL Mean Platelet Volume 10.5 9.4-12.4 fL Neutrophils Percent Auto 63.9 45-73 % Imm Gran Pct Auto 0.2 0.0-0.4 % Lymphocytes Percent Auto 22.8 20-40 % Monocytes Percent Auto 10.0 2-11 % Eosinophils Percent Auto 2.9 0-4 % Basophils Percent Auto 0.2 0-2 % NRBC Pct Auto 0.0 0.0-0.2 /100WBC Neutrophils Absolute Auto 4.0 2.0-8.3 x10*3/u L Imm Gran Abs Auto 0.01 0.00-0.03 X10*3/uL Lymphocytes Absolute Auto 1.4 1.2-4.9 X10*3/u L Monocytes Absolute Auto 0.6 0.1-1.2 X10*3/uL Eosinophils Absolute Auto 0.2 0.0-0.4 X10*3/u L Basophils Absolute Auto 0.0 0.0-0.2 X10*3/uL NRBC Abs Auto 0.000 0.0-0.012 X10*3/uL Comprehensive [facility]. Panel Fa st Reviewed date:08/18/2024 01:03:50 PM Interpretation: Performing Lab:[facility], [address] [place] [phone] Notes/Report: Sodium 141 135-145 mmol/L Potassium 3.9 3.3-5.1 mmol/L Chloride 109 96-108 mmol/L Carbon Dioxide 25 22-29 mmol/L Anion Gap 11 12-20 Blood Urea Nitrogen 20 9-16 mg/dL Creatinine 1.31 0.5-1.4 mg/dL Estimated Glomerular Filt Rate 54 NOTE: For -Cameroonian individuals, multiply the result by 1.210. Chronic Kidney Disease: Estimated GFR < 60 mL/min/1.73m2 Severe Kidney Disease: Estimated GFR < 15 mL/min/1.73m2 Glucose Fasting 116 60-99 mg/dL A fasting glucose from 100-125 mg/dl is considered impaired (pre-diabetes). Calcium 9.6 8.4-10.2 mg/dL Bilirubin Total 1.0 0.0-1.0 mg/dL Aspartate Amino Transferase 28 5-37 U/L Alanine Aminotransferase 18 0-40 U/L Total Protein 7.2 6.5-8.0 g/dL Albumin Level 4.0 3.5-5.0 g/dL Alkaline Phosphatase 70 39-117 U/L Lipid Panel Reviewed date:08/18/2024 12:35:19 PM Interpretation: Performing Lab:[address] [phone] Notes/Report: Triglycerides 84 <150 mg/dL Desirable Triglyceride: less than 150 mg/dL Borderline High Triglyceride 150-199 mg/dL High Triglyceride: 200-499 mg/dL Very High Triglyceride: greater than or equal to 5OO mg/dL Cholesterol 167 <200 mg/dL Desirable Cholesterol: less than 200 mg/dL Borderline High Cholesterol: 200-239 mg/dL High Cholesterol: greater than 239 mg/dL LDL Cholesterol Calculated 63 <100 mg/dL Desirable LDL: less than 100 mg/dL Near Optimal/Above Optimal LDL: 110-129 mg/dL Borderline High LDL: 130-159 mg/dL High LDL: 160-189 mg/dL Very High LDL: greater than or equal to 190 mg/dL HDL Cholesterol 88 >40 mg/dL Desirable HDL: greater than 40 mg/dL Note: This HDL assay may give artificially low results in patients with liver disease. PSA,Total (Free>4and<10) Reviewed date:08/18/2024 12:34:12 PM Interpretation: Performing Lab:[address] [phone] Notes/Report: PSA,Total (Free>4and<10) 3.01 0.00-4.00 ng/mL A Free PSA was not performed: The percentage of Free PSA can be used to enhance the differentiation of prostate cancer from benign prostatic disease in subjects whose PSA levels are between 4.0 and 10.0 ng/mL. For subjects whose PSA levels are below 4.0 or above 10.0 ng/mL, the risk of prostate cancer is determined on the basis of the PSA alone. Therefore the % Free PSA is recommended only for those subjects whose PSA levels are between 4.0 and 10.0 ng/mL. PSA methodology: Lora Alinity i Chemiluminescent Microparticle Immunoassay (CMIA) UA ClnCatch+Micro w/rflx Cul t Reviewed date:09/18/2024 10:17:51 AM Interpretation:ORQUIDEA 09/15 Performing Lab:[address] [place] [address] Notes/Report: Urine, Clean Catch Color Urine Yellow Appearance Urine Clear PH 6.0 5.0-9.0 Glucose Urine UA Negative Negative mg/dL Urine Blood Large (3+) Negative Specific [place] - Urine 1.015 1.005-1.025 Urine Protein 300 (3+) Neg-Trace mg/dL Urine Ketones Negative Negative mg/dL Nitrite Urine Negative Negative Leukocyte Esterase Urine Negative Negative RBC Urine >20 0-2 /HPF WBC Urine 0-5 0-5 /HPF Squamous Epithelial Cell Urine 0-2 0-2 /HPF Bacteria Urine None Seen None Seen Hyaline Casts Urine 0-2 0-2 /LPF REASON FOR VISIT FASTING LABS Encounters Encounter Location Date Provider Diagnosis Teto Gary MD [address] [place] [address] [place] [phone] 08/18/2024 Teto Gary Blood tests for rout ine general physical examination Z00.00 ; Essential (primary) hypertension I10 ; Pure hypercholesterolemia E78.00 ; Chronic kidney disease (CKD) stage G1/A2, glomerular filtration rate (GFR) equal to or greater than 90 mL/min/1.73 square meter and albuminuria creatinine ratio between 30-299 mg/g N18.1 and Prostatism N40.0 Assessments Encounter Date Diagnosis (ICD Code) Assessment Notes Treatment Notes Treatment Clinical Notes Section Notes 08/18/2024 Blood tests for rout ine general physical examination (ICD-10 - Z00.00) 08/18/2024 Essential (primary) hypertension (ICD-10 - I10) 08/18/2024 Pure hypercholesterolemia (ICD-10 - E78.00) 08/18/2024 Chronic kidney disea se (CKD) stage G1/A2, glomerular filtration rate (GFR) equal to or greater than 90 mL/min/1.73 square meter and albuminuria creatinine ratio between 30-299 mg/g (ICD-10 - N18.1) 08/18/2024 Prostatism (ICD-10 - N40.0) Plan Of Treatment Next Appt Details Provider Name:Teto kaye, 09/13/2025 07:30:00 AM, [address] [place] [address], [address], [place], [place], [phone], Provider Name:Teto kaye, 09/20/2025 01:00:00 PM, [address] [facility], [address], [place], [place], [phone], Progress Notes * LAVERN LIVINGSTON RDOB:1950 (74 yo M)Acc No.[id number]:08/18/2024 Progress Note Patient: LAVERN EDUARDO Provider: Naveen Gary MD :1950 A ge:73 Y S ex:Male Date:08/18/2024 Address:[address] [place], [place] [phone] Subjective: * Chief Complaints: * 1 . FASTING LABS. * Medical History: Objective: * Vitals: Assessment: * Assessment: 1. B lood tests for routine general physical examination - Z00.00 (Primary) 2 .?Essential (primary) hypertension - I10 3 . P ure hypercholesterolemia - E78.00 4 . C hronic kidney disease (CKD) stage G1/A2, glomerular filtration rate (GFR) equal to or greater than 90 mL/min/1.73 square meter and albuminuria creatinine ratio between 30-299 mg/g - N18.1 5 . P rostatism - N40.0 Plan: * Treatment: 2.?Essential (primary) hypertension?LAB: Complete Blood Count Auto Diff (Collection Date & Time - 08/18/2024 08:00 AM) ?LAB: Comprehensive [facility]. Panel Fast (Collection Date & Time - 08/18/2024 08:00 AM) ?LAB: Lipid Panel (Collection Date & Time - 08/18/2024 08:00 AM) ?LAB: PSA,Total (Free>4and<10) (Collection Date & Time - 08/18/2024 08:00 AM) ?LAB: UA ClnCatch+Micro w/rflx Cult (Collection Date & Time - 08/18/2024 08:00 AM)* Olga Mcneill 024 10:17:35 AM EST > LAVERN KEPT HIS EXAM APPT 3.?Pure hypercholesterolemia?LAB: Complete Blood Count Auto Diff (Collection Date & Time - 08/18/2024 08:00 AM) ?LAB: Comprehensive [facility]. Panel Fast (Collection Date & Time - 08/18/2024 08:00 AM) ?LAB: Lipid Panel (Collection Date & Time - 08/18/2024 08:00 AM) ?LAB: PSA,Total (Free>4and<10) (Collection Date & Time - 08/18/2024 08:00 AM) ?LAB: UA ClnCatch+Micro w/rflx Cult (Collection Date & Time - 08/18/2024 08:00 AM)* Olga Mcneill 10:17:35 AM EST > LAVERN KEPT HIS EXAM APPT 4.?Chronic kidney disease (CKD) stage G1/A2, glomerular filtration rate (GFR) equal to or greater than 90 mL/min/1.73 square meter and albuminuria creatinine ratio between 30-299 mg/g?LAB: Complete Blood Count Auto Diff (Collection Date & Time - 08/18/2024 08:00 AM) ?LAB: Comprehensive [facility]. Panel Fast (Collection Date & Time - 08/18/2024 08:00 AM) ?LAB: Lipid Panel (Collection Date & Time - 08/18/2024 08:00 AM) ?LAB: PSA,Total (Free>4and<10) (Collection Date & Time - 08/18/2024 08:00 AM) ?LAB: UA ClnCatch+Micro w/rflx Cult (Collection Date & Time - 08/18/2024 08:00 AM)* CharitoOlga Esquivel 10:17:35 AM EST > LAVERN KEPT HIS EXAM APPT 5.?Prostatism?LAB: Complete Blood Count Auto Diff (Collection Date & Time - 08/18/2024 08:00 AM) ?LAB: Comprehensive [facility]. Panel Fast (Collection Date & Time - 08/18/2024 08:00 AM) ?LAB: Lipid Panel (Collection Date & Time - 08/18/2024 08:00 AM) ?LAB: PSA,Total (Free>4and<10) (Collection Date & Time - 08/18/2024 08:00 AM) ?LAB: UA ClnCatch+Micro w/rflx Cult (Collection Date & Time - 08/18/2024 08:00 AM)* CharitoCarmellaOlga A 024 10:17:35 AM EST > LAVERN KEPT HIS EXAM APPT * Procedure Codes: 3 6415 VENIPUNCT, ROUTINE* * * The named appointment provid er may or may not be the originator of this progress note, and it is not deemed complete until electronically signed by the appointment provider. Sign off status: Pending * Provider: Naveen Gary MD Date: 10/18/2023 Generated for Raffaele lara/Aminta/Yasmine on: 10/20/2024 08:02 AM EST
--- OUTSIDE RECORDS SUMMARY | 2024-09-15 08:45 | XMS_ITS ---
Author Organization Teto Gary MD Address [address] [place], [place] [phone] Care Team Providers Care Review Specialist Name Role Phone Teto Gary Primary Care Provider [phone] Allergies Allergen (clinical drug ingredient) Drug/Non Drug [...] Location Date Provider Diagnosis Teto Gary MD [address] [place] [address] [place] [phone] 09/15/2024 Teto Gary Left inguinal hernia K40.90 [...] Details Provider Name:Teto kaye, 09/13/2025 07:30:00 AM, [address] [place] [address], [address], [place], [place], [phone], Provider Name:Teto Sky ier, 09/20/2025 01:00:00 PM, [address], [address], [place], [phone], Progress Notes * LAVERN LIVINGSTON RDOB:1950 (74 yo M)Acc No.[id number]:09/15/2024 Progress Notes Patient: LAVERN EDUARDO Provider: Naveen Gary MD :1950 A ge:74 Y S ex:Male Date:09/15/2024 Address:[address] [place] [address] [place], [place] Subjective: * Chief Complaints: * A NNUAL [...] in the past year? N o. S ATNG Questions: SDOH Questions I n the past [...] 78 yrs. 1 daughter(s) . . Mother-Emphysema Father-[place] 1 brother 1 sister, Denies mental health/substance [...] Auto 0.000 0.0-0.012 - X10*3/uL L ab:Comprehensive [place]. Panel Fast (Order Date - 08/18/2024) (Collection [...] Date: 11/16/2023 Generated for Raffaele lara/Aminta/eTransmitting on: 10/20/2024 08:02 AM EST History and Physical Notes * [...]
--- OUTSIDE RECORDS SUMMARY | 2024-10-27 05:12 | XMS_ITS ---
Author Organization Teto Gary MD Address [address] [place] [phone] Care Team Providers Care Cloth Winding Supervisor Name Role Phone CookieTeto Primary Care Provider REASON FOR VISIT ER Visit rec'd Encounters Encounter Location Date Provider Diagnosis Teto Gary MD 10 [facility] [address] [place] [phone] 10/27/2024 Teto Gary Plan Of Treatment Next Appt Details Provider Name:Teto Sky ier, 09/13/2025 07:30:00 AM, [address] [place] [address], Suite [facility], [place], [place], [phone], Provider Name:Teto kaye, 09/20/2025 01:00:00 PM, [address] [place] [address], [place] [address], [place], [place], [phone], Progress Notes * LAVERN LIVINGSTON RDOB:1950 (74 yo M)Acc No.[id number]:10/27/2024 Patient: LAVERN EDUARDO :1950 A ge:74 Y S ex:Male Address:[address] [place] [address], [address] * true * Date: Generated for Raffaele lara/Aminta/Yasmine on: 10/20/2024 08:02 AM EST
--- OUTSIDE RECORDS SUMMARY | 2024-11-13 06:30 | XMS_ITS ---
Author Organization Teto Gary MD Address [address] [place], [place] [phone] Care Team Providers Care Environmental Assistant Name Role Phone Teto Gary Primary Care Provider Allergies Allergen (clinical drug ingredient) Drug/Non Drug Allergy documented on EMR Reaction Allergy Type Onset Date Status diphenhydramine Benadryl Unknown Drug Allergy A ctive REASON FOR VISIT was seen at [facility] [place] [place] for her[place], has already seen the surgeon., his will be at this appt wi him-she is concerned his very confused. ER visit is scanned in chart . Medications Medication SIG (Take, Route, Frequency, Duration) Notes Start Date End Date Status Losartan Potassium 25 MG 1 tablet Orally Once a day 02/29/2024 Active Metoprolol Succinate ER 50 MG take 1 tablet by mouth daily Orally Once a day Active Sildenafil Citrate 100 MG 1 tablet as ne eded Orally Once a day for 30 day(s) 05/01/2019 Active Tamsulosin HCl 0.4 MG TAKE 1 CAPSULE BY MOUTH EVERY DAY for 90 Active amLODIPine Besylate 10 MG TAKE 1 TABLET BY MOUTH EVERY DAY Active Rosuvastatin Calcium 40 MG TAKE 1 TABLET BY MOUTH EVERY DAY Active Levothyroxine Sodium 150 MCG TAKE 1 TABL ET BY MOUTH EVERY MORNING ON AN EMPTY STOMACH Orally Once a day Active Warfarin Sodium 5 MG TAKE 2 TABLETS ON WEDNESDAY, WEDNESDAY, WEDNESDAY, TAKE 2.5 TABLETS ON OTHER DAYS ORALLY ONCE A DAY 90 DAYS Active Vital Signs Blood pressure systolic 182 mm Hg 11/13/19 25 Blood pressure diastolic 70 mm Hg 025 Height 71.5 in 11/13/2024 Weight 266 lbs 11/13/2024 BMI 36.58 kg/m2 11/13/2024 weight is up 13 pounds vilma 12-6-24 Encounters Encounter Location Date Provider Diagnosis Teto Gary MD [address] [place], [place] [phone] 11/13/2024 Teto Gary 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 will consider mri in future 11/13/2024 Heme positive stool (ICD-10 - R19.5) is going to go to cardiology and then get a colonoscopy Plan Of Treatment Treatment Notes Assessment Notes Mechanical heart valve present daughter is going to see if dr braga will see him/ Mild dementia without behavi oral disturbance, psychotic disturbance, mood disturbance, or anxiety, unspecified dementia type at the present time he doesn't want to d o anything. will consider mri in future Heme positive stool is going to go to ca rdiology and then get a colonoscopy Next Appt Details Follow Up: 2 Months, Reason: Provider Name:Teto kaye, 09/13/2025 07:30:00 AM, [address], [address], [place], [place], [phone], Provider Name:Teto kaye, 09/20/2025 01:00:00 PM, [address], [address], [place], [place], [phone], Progress Notes * LAVERN LIVINGSTON RDOB:1950 (74 yo M)Acc No.[id number]:11/13/2024 Progress Notes Patient: LAVERN EDUARDO Provider: Naveen Gary MD :1950 A ge:74 Y S ex:Male Date:11/13/2024 Address:[address] [place] [address] [place], [id number] Subjective: * Chief Complaints: * w as seen at [facility] [place] [place] for hernia, has already seen the surgeon.his will be at this appt wih him-she is concerned his very confused. ER visit is scanned in chart . * HPI: S ymptom(s): patient is a 74 yo male here for follow up from the er. records reviewed and medications reconcilled. daughter is concerned that he is getting forgetful. at times when driving he can't remember where he is . she is concerned that he is not seeing a director regulatory compliance at present. memory has been bad for a couple years. daughter states in the middle of a conversation will not remember what he was talking about. * ROS: G eneral/Constitutional: Denies C hills. D enies F atigue. D enies F ever. D enies H eadache. E NT: Patient denies d ecreased sense of smell, any loss of taste, sore throat. D enies S ore throat. R espiratory: Denies C ough. D enies S hortness of breath at rest. D enies S hortness of breath with exertion. G astrointestinal: Denies D iarrhea. D enies N ausea. M usculoskeletal: Patient denies m uscle aches. P eripheral Vascular: Patient denies r ed and blue toes. * Medical History: * Surgical History: * Hospitalization/Major Diagno stic Procedure: * Medications: T akingSildenafil Citrate 100 MG Tablet 1 tablet as needed Orally Once a day Losartan Potassium 25 MG Tablet 1 tablet Orally Once a day Metoprolol Succinate ER 50 MG Tablet Extended Release 24 Hour take 1 tablet by mouth daily Orally Once a day Levothyroxine Sodium 150 MCG Tablet TAKE 1 TABLET BY MOUTH EVERY MORNING ON AN EMPTY STOMACH Orally Once a day Warfarin Sodium 5 MG Tablet TAKE 2 TABLETS ON WEDNESDAY, WEDNESDAY, WEDNESDAY, TAKE 2.5 TABLETS ON OTHER DAYS ORALLY ONCE A DAY 90 DAYS Rosuvastatin Calcium 40 MG Tablet TAKE 1 TABLET BY MOUTH EVERY DAY amLODIPine Besylate 10 MG Tablet TAKE 1 TABLET BY MOUTH EVERY DAY Tamsulosin HCl 0.4 MG Capsule TAKE 1 CAPSULE BY MOUTH EVERY DAY Taking Sildenafil Citrate 100 MG Tablet 1 tablet as needed Orally Once a day Taking Losartan Potassium 25 MG Tablet 1 tablet Orally Once a day Taking Metoprolol Succinate ER 50 MG Tablet Extended Release 24 Hour take 1 tablet by mouth daily Orally Once a day Taking Levothyroxine Sodium 150 MCG Tablet TAKE 1 TABLET BY MOUTH EVERY MORNING ON AN EMPTY STOMACH Orally Once a day Taking Warfarin Sodium 5 MG Tablet TAKE 2 TABLETS ON WEDNESDAY, WEDNESDAY, WEDNESDAY, TAKE 2.5 TABLETS ON OTHER DAYS ORALLY ONCE A DAY 90 DAYS Taking Rosuvastatin Calcium 40 MG Tablet TAKE 1 TABLET BY MOUTH EVERY DAY Taking amLODIPine Besylate 10 MG Tablet TAKE 1 TABLET BY MOUTH EVERY DAY Taking Tamsulosin HCl 0.4 MG Capsule TAKE 1 CAPSULE BY MOUTH EVERY DAY * Allergies: B enadryl: Allergyyes[Allergies Verified] Objective: * Vitals: H t: 71.5, Wt: 266, BMI:36.58, BP:182/70, Repeat BP:155/70, Wt-k.66. weight is up 13 pounds vilma 09-15-24. * Examination: G eneral Examination: GENERAL APPEARANCE: a lert, well hydrated, in no distress.? HEAD: n ormocephalic. SKIN: g ood turgor. HEART: r egular rate and rhythm, grade 2/6 systolic murmur at left sternal border. LUNGS: n o wheezes, rales, rhonchi, good air movement, clear to auscultation bilaterally. Assessment: * Assessment: 1. 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 M ild dementia without behavioral disturbance, psychotic disturbance, mood disturbance, or anxiety, unspecified dementia type - F03.A0 3 . H kannan positive stool - R19.5 Plan: * Treatment: 2. M ild dementia without behavioral disturbance, psychotic disturbance, mood disturbance, or anxiety, unspecified dementia type Notes: at the present time he doesn't want to do anything. will consider mri in future 3. H kannan positive stool Notes: is going to go to cardiology and then get a colonoscopy * Procedure Codes: * Follow Up: 2 Months * * Sign off status: Completed true * Provider: Naveen Gary MD Date: 0 11/13/2024 Generated for Raffaele lara/Aminta/Yasmine on: 1 10/20/2024 08:03 AM EST History and Physical Notes * HPI (History of Present Illness) Category Sub-Category Detail Notes Category Not es Symptom(s) patient is a 74 yo male here for follow up from the er. records reviewed and medications reconcilled. daughter is concerned that he is getting forgetful. at times when driving he can't remember where he is . she is concerned that he is not seeing a director regulatory compliance at present. memory has been bad for a couple years. daughter states in the middle of a conversation will not remember what he was talking about Examination Category Sub-Category Detail Notes Category Not es General Examination GENERAL APPEARANCE: alert, w ell hydrated, in no distress HEAD: normocephalic HEART: regular rate and rhy thm, grade 2/6 systolic murmur at left sternal border LUNGS: no wheezes, rales, r honchi, good air movement, clear to auscultation bilaterally SKIN: good turgor
--- OUTSIDE RECORDS SUMMARY | 2025-01-08 04:45 | XMS_ITS ---
Author Organization Teto Gary MD Address [address] [place] [phone] Care Team Providers Care Valver Name Role Phone CookieZacn Primary Care Provider REASON FOR VISIT FYI INR results Encounters Encounter Location Date Provider Diagnosis Teto Gary MD 10 [facility] [address] [place] [phone] 01/08/2025 Teto Gary Plan Of Treatment Next Appt Details Provider Name:Teto Sky ier, 09/13/2025 07:30:00 AM, [address] [place] [address], Suite [facility], [place], [place], [phone], Provider Name:Teto Sky ier, 09/20/2025 01:00:00 PM, [address] [place] [address], [place] [address], [place], [place], [phone], Progress Notes * LAVERN LIVINGSTON RDOB:1950 (74 yo M)Acc No.[id number]:01/08/2025 Patient: LAVERN EDUARDO :1950 A ge:74 Y S ex:Male Address:[address] [place] [address], [address] * true * Date: Generated for Raffaele lara/Aminta/Yasmine on: 10/20/2024 08:01 AM EST
--- OUTSIDE RECORDS SUMMARY | 2025-03-09 02:15 | XMS_ITS ---
Author Organization Teto Gary MD Address [address] [place], [place] [phone] Care Team Providers Care Claims Service Adjustor Name Role Phone Teto Gary Primary Care Provider Results Component Value Reference Range Notes Liver Panel Reviewed date:03/09/2025 04:17:25 PM Interpretation: Performing Lab:[facility], [address] [place] [phone] Notes/Report: Bilirubin Total 0.8 0.0-1.0 mg/dL Bilirubin Direct 0.3 0.0-0.5 mg/dL Aspartate Amino Transferase 27 5-37 U/L Alanine Aminotransferase 19 0-40 U/L Total Protein 7.1 6.5-8.0 g/dL Albumin Level 4.1 3.5-5.0 g/dL Alkaline Phosphatase 66 39-117 U/L Lipid Panel with Reflex Reviewed date:03/09/2025 04:17:09 PM Interpretation: Performing Lab:[facility], [address] [place] [phone] Notes/Report: Triglycerides 79 <150 mg/dL Desirable Triglyceride: [...] Location Date Provider Diagnosis Teto Gary MD [address] [place] [address] [place] [phone] 03/09/2025 Teto Gary Pure hypercholestero lemia E78.00 Assessments Encounter Date Diagnosis (ICD Code) Assessment Notes Treatment Notes Treatment Clinical Notes Section Notes 03/09/2025 Pure hypercholesterolemia (ICD-10 - E78.00) Plan Of Treatment Next Appt Details Provider Name:Teto Sky ier, 09/13/2025 07:30:00 AM, [address] [place] [address], Suite [facility], [place], [place], [phone], Provider Name:Teto Faithdebra ier, 09/20/2025 01:00:00 PM, [address] [place] [address], [place] [address], [place], [place], [phone], Progress Notes * LAVERN LIVINGSTON RDOB:1950 (74 yo M)Acc No.[id number]:03/09/2025 Progress Note Patient: LAVERN EDUARDO Provider: Naveen Gary MD :1950 A ge:74 Y S ex:Male Date:03/09/2025 Address:[address] [place], [place] [phone] Subjective: * Chief Complaints: * 1 . [...] 0 03/09/2025 Generated for Raffaele lara/Aminta/Nickitting on: 10/20/2024 08:01 AM EST
--- OUTSIDE RECORDS SUMMARY | 2025-03-19 08:30 | XMS_ITS ---
Author Organization Teto Gary MD Address [address] [place], [place] [phone] Care Team Providers Care Veneer Joiner Name Role Phone Teto Gary Primary Care [...] kg/m2 03/19/2025 weight is down 9 pounds [facility] e 11-13-24 Encounters Encounter Location Date Provider Diagnosis Teto Gary MD [address] [place] [address] [place] [phone] 03/19/2025 Teto Gary Bilateral carotid ar jacque [...] Details Provider Name:Teto kaye, 09/13/2025 07:30:00 AM, [address] [place] [address], [place] [address], [place], [place], [phone], Provider Name:Teto kaye, 09/20/2025 01:00:00 PM, [address] [place] [address], [place] [address], [place], [place], [phone], Progress Notes * LAVERN LIVINGSTON RDOB:1950 (74 yo M)Acc No.[id number]:03/19/2025 Progress Notes Patient: LAVERN EDUARDO Provider: Naveen Gary MD :1950 A ge:74 Y S ex:Male Date:03/19/2025 Address:[address] [place] [address] [place], [id number] Subjective: * Chief Complaints: * 6 month [...] 0 03/19/2025 Generated for Raffaele lara/Aminta/eTransmitting on: 1 10/20/2024 08:03 AM EST History [...]
--- OUTSIDE RECORDS SUMMARY | 2025-07-05 05:26 | XMS_ITS ---
Author Organization Teto Gary MD Address [address] [place] [phone] Care Team Providers Care Volleyball Assistant Coach Name Role Phone Cookie Teto Primary Care Provider [phone] REASON FOR VISIT ER Visit Encounters Encounter Location Date Provider Diagnosis Teto Gary MD 10 [facility] [address] [place] [phone] 07/05/2025 Teto Gary Plan Of Treatment Next Appt Details Provider Name:Teto Sky ier, 09/13/2025 07:30:00 AM, [address] [place] [address], [address] [place] [address], [phone], Provider Name:Teto Sky ier, 09/20/2025 01:00:00 PM, [address] [place] [address], [place] [address], [place], [place], [phone], Progress Notes * LAVERN LIVINGSTON RDOB:1950 (74 yo M)Acc No.[id number]:07/05/2025 Patient: LAVERN EDUARDO :1950 A ge:74 Y S ex:Male Address:[address] [place] [address], [id number] * true * Date: Generated for Raffaele lara/Aminta/Yasmine on: 10/20/2024 08:02 AM EST
--- OUTSIDE RECORDS SUMMARY | 2025-07-30 04:15 | XMS_ITS ---
Author Organization Teto Gary MD Address [address] [place], [place] [phone] Care Team Providers Care Bead Filler Name Role Phone Cookie Teto Primary Care [...] kg/m2 07/30/2025 weight is down 2 pounds [facility] 03[facility] Encounters Encounter Location Date Provider Diagnosis Teto Gary MD [address] [place] [address] [address] [place], [place] [phone] 07/30/2025 Teto Gary Leg pain, left M79.605 Assessments Encounter Date Diagnosis (ICD Code) Assessment Notes Treatment Notes Treatment Clinical Notes Section Notes 07/30/2025 Leg pain, left (ICD-10 - M79.605) not clear if all the pain is in the kinee and possibly related to spine. will refer to ortho and see if that works and if not to PSSP/ [place] [facility] Plan Of Treatment Treatment Notes Assessment Notes Leg pain, left not clear if all the pain is in the kinee and possibly related to spine. will refer to ortho and see if that works and if not to PSSP/ referral [place] [facility] Referrals Referral Date Details 07/30/2025 07/30/2025, left leg pain, CLAUDIA DEE Next Appt Details Provider Name:Teto kaye, 09/13/2025 07:30:00 AM, [address] [place] [address], [address], [place], [place], [phone], Provider Name:Teto kaye, 09/20/2025 01:00:00 PM, [address] [place] [address], [address], [place], [place], [phone], Progress Notes * LAVERN LIVINGSTON RDOB:1950 (74 yo M)Acc No.[id number]:07/30/2025 Progress Notes Patient: LAVERN EDUARDO Provider: Naveen Gary MD :1950 A ge:74 Y S ex:Male Date:07/30/2025 Address:[address] [place] [address], [facility] Subjective: * Chief Complaints: * K nee [...] true * Provider: Naveen Gary MD Date: Generated for Raffaele lara/Aminta/Nickitting on: 10/20/2024 08:02 AM EST History and [...]
--- OUTSIDE RECORDS SUMMARY | 2025-08-06 09:14 | XMS_ITS ---
Author Organization Teto Gary MD Address [address] [place] [phone] Care Team Providers Care Frame Table Operator Helper Name Role Phone Cookie Teto Primary Care Provider [phone] REASON FOR VISIT Low INR Encounters Encounter Location Date Provider Diagnosis Teto Gary MD 10 [facility] [address] [place] [phone] 08/06/2025 Teto Gary Plan Of Treatment Next Appt Details Provider Name:Teto Sky ier, 09/13/2025 07:30:00 AM, [address] [place] [address], [address] [place] [address], [phone], Provider Name:Teto Sky ier, 09/20/2025 01:00:00 PM, [address] [place] [address], [place] [address], [place], [place], [phone], Progress Notes * LAVERN LIVINGSTON RDOB:1950 (74 yo M)Acc No.[id number]:08/06/2025 Patient: LAVERN EDUARDO :1950 A ge:74 Y S ex:Male Address:[address] [place] [address], [address] * true * Date: Generated for Raffaele lara/Aminta/Yasmine on: 10/20/2024 08:01 AM EST
--- OUTSIDE RECORDS SUMMARY | 2025-08-20 08:01 | XMS_ITS | Clinical Summary ---
Author Organization [facility] Address [address] [facility] [address] [place] [address] Phone Care Team Providers Care Library Aide Name Role Phone Teto Gary MD Primary Care Provider [phone] Allergies Active Allergy Reactions Criticality Noted Date [...] this topic Insurance [employer] MCR Adv PPO ([id number]) [employer] MCR Adv PPO ([id number]) Care Teams Library Aide Relationship Specialty Start Date End Date Teto Gary MD [address] [place] [phone] [id number] [place], [place] PCP - General 10/21/20
--- OUTSIDE RECORDS SUMMARY | 2025-08-20 08:03 | XMS_ITS | Patient Health Record ---
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 Name Role Phone Teto Gary Primary Care Provider [phone] Allergies Allergen (clinical drug ingredient) Drug/Non Drug Allergy documented on EMR Reaction Allergy Type Onset Date Status diphenhydramine Benadryl Unknown Drug Allergy A ctive Results Component Value Reference Range Notes Liver Panel Reviewed date:03/09/2025 04:17:25 PM Interpretation: Performing Lab:[address] [phone] Notes/Report: Bilirubin Total 0.8 0.0-1.0 mg/dL Bilirubin Direct 0.3 0.0-0.5 mg/dL Aspartate Amino Transferase 27 5-37 U/L Alanine Aminotransferase 19 0-40 U/L Total Protein 7.1 6.5-8.0 g/dL Albumin Level 4.1 3.5-5.0 g/dL Alkaline Phosphatase 66 39-117 U/L Lipid Panel with Reflex Reviewed date:03/09/2025 04:17:09 PM Interpretation: Performing Lab:[address] [place] [address] Notes/Report: Triglycerides 79 <150 mg/dL Desirable Triglyceride: [...] POC Reviewed date:08/21/2024 07:00:30 PM Interpretation: Performing Lab:[facility], [address] [place] [phone] Notes/Report: PT, INR - Anti [facility]ag Clinic 2.0 0.9-1.1 METER #: [id number] INTERNATIONAL NORMALIZED RATIO (INR) REFERENCE RANGES Reference [...] OC Reviewed date:08/21/2024 07:02:24 PM Interpretation: Performing Lab:[facility], [address] [place] [phone] Notes/Report: Prothrombin Time Whole Bld POC 24.1 11.1-13.5 sec INR WHOLE BLOOD POC Reviewed date:09/18/2024 12:40:45 PM Interpretation: Performing Lab:[facility], [address] [place] [phone] Notes/Report: PT, INR - [facility] 2.0 0.9-1.1 METER #: [id number] INTERNATIONAL NORMALIZED RATIO (INR) REFERENCE RANGES Reference [...] OC Reviewed date:09/18/2024 12:44:30 PM Interpretation: Performing Lab:[facility], [address] [place] [phone] Notes/Report: Prothrombin Time Whole Bld POC 23.9 11.1-13.5 sec INR WHOLE BLOOD POC Reviewed date:10/16/2024 09:52:45 AM Interpretation: Performing Lab:[facility], [address] [place] [phone] Notes/Report: PT, INR - [facility] 3.6 0.9-1.1 METER #: [id number] INTERNATIONAL NORMALIZED RATIO (INR) REFERENCE RANGES Reference [...] OC Reviewed date:10/16/2024 09:52:53 AM Interpretation: Performing Lab:[facility], [address] [place] [phone] Notes/Report: Prothrombin Time Whole Bld POC 43.8 11.1-13.5 sec INR WHOLE BLOOD POC Reviewed date:11/07/2024 04:28:35 PM Interpretation: Performing Lab:[facility], [address] [place] [phone] Notes/Report: PT, INR - [facility] 4.4 0.9-1.1 METER #: [id number] INTERNATIONAL NORMALIZED RATIO (INR) REFERENCE RANGES Reference [...] OC Reviewed date:11/07/2024 04:28:26 PM Interpretation: Performing Lab:[address] [phone] Notes/Report: Prothrombin Time Whole Bld POC 52.3 11.1-13.5 sec INR WHOLE BLOOD POC Reviewed date:11/22/2024 05:40:44 PM Interpretation: Performing Lab:[facility], [address] [place] [phone] Notes/Report: PT, INR - [facility] 1.5 0.9-1.1 METER #: [id number] Doctor Notified INTERNATIONAL NORMALIZED RATIO (INR) REFERENCE [...] OC Reviewed date:11/22/2024 05:40:26 PM Interpretation: Performing Lab:[address] [phone] Notes/Report: Prothrombin Time Whole Bld POC 17.8 11.1-13.5 sec INR WHOLE BLOOD POC Reviewed date:11/24/2024 12:39:31 PM Interpretation: Performing Lab:[address] [phone] Notes/Report: PT, INR - [facility] 2.6 0.9-1.1 METER #: [id number] INTERNATIONAL NORMALIZED RATIO (INR) REFERENCE RANGES Reference [...] OC Reviewed date:11/24/2024 12:35:01 PM Interpretation: Performing Lab:[facility], [address] [place] [phone] Notes/Report: Prothrombin Time Whole Bld POC 30.8 11.1-13.5 sec INR WHOLE BLOOD POC Reviewed date:12/11/2024 11:04:14 AM Interpretation: Performing Lab:[facility], [address] [place] [phone] Notes/Report: PT, INR - [facility] 3.2 0.9-1.1 METER #: [id number] INTERNATIONAL NORMALIZED RATIO (INR) REFERENCE RANGES Reference [...] OC Reviewed date:12/11/2024 12:37:20 PM Interpretation: Performing Lab:[facility], [address] [place] [phone] Notes/Report: Prothrombin Time Whole Bld POC 38.2 11.1-13.5 sec INR WHOLE BLOOD POC Reviewed date:01/01/2025 12:32:57 PM Interpretation: Performing Lab:[facility], [address] [place] [phone] Notes/Report: PT, INR - [facility] 4.6 0.9-1.1 METER #: [id number] INTERNATIONAL NORMALIZED RATIO (INR) REFERENCE RANGES Reference [...] OC Reviewed date:01/01/2025 12:33:05 PM Interpretation: Performing Lab:[facility], [address] [place] [phone] Notes/Report: Prothrombin Time Whole Bld POC 54.9 11.1-13.5 sec INR WHOLE BLOOD POC Reviewed date:01/08/2025 12:19:34 PM Interpretation: Performing Lab:[facility], [address] [place] [phone] Notes/Report: PT, INR - [facility] 1.4 0.9-1.1 METER #: [id number] INTERNATIONAL NORMALIZED RATIO (INR) REFERENCE RANGES Reference [...] OC Reviewed date:01/08/2025 12:19:26 PM Interpretation: Performing Lab:[facility], [address] [place] [phone] Notes/Report: Prothrombin Time Whole Bld POC 16.7 11.1-13.5 sec INR WHOLE BLOOD POC Reviewed date:01/15/2025 08:45:45 AM Interpretation: Performing Lab:[facility], [address] [place] [phone] Notes/Report: PT, INR - [facility] 2.0 0.9-1.1 METER #: [id number] INTERNATIONAL NORMALIZED RATIO (INR) REFERENCE RANGES Reference [...] OC Reviewed date:01/15/2025 08:45:37 AM Interpretation: Performing Lab:[facility], [address] [place] [phone] Notes/Report: Prothrombin Time Whole Bld POC 23.9 11.1-13.5 sec INR WHOLE BLOOD POC Reviewed date:02/07/2025 04:59:10 PM Interpretation: Performing Lab:[facility], [address] [place] [phone] Notes/Report: PT, INR - [facility] 3.1 0.9-1.1 METER #: [id number] INTERNATIONAL NORMALIZED RATIO (INR) REFERENCE RANGES Reference [...] OC Reviewed date:02/07/2025 04:59:01 PM Interpretation: Performing Lab:[facility], [address] [place] [phone] Notes/Report: Prothrombin Time Whole Bld POC 37.7 11.1-13.5 sec INR WHOLE BLOOD POC Reviewed date:02/19/2025 12:25:05 PM Interpretation: Performing Lab:[address] [phone] Notes/Report: PT, INR - [facility] 2.9 0.9-1.1 METER #: [id number] INTERNATIONAL NORMALIZED RATIO (INR) REFERENCE RANGES Reference [...] OC Reviewed date:02/19/2025 12:25:12 PM Interpretation: Performing Lab:[facility], [address] [place] [phone] Notes/Report: Prothrombin Time Whole Bld POC 34.3 11.1-13.5 sec Hold Gold Reviewed date:03/09/2025 04:15:47 PM Interpretation: Performing Lab:[facility], [address] [place] [phone] Notes/Report: Hold Gold See Note Specimen held untested for 24 hours; Call to request Chemistry testing. INR WHOLE BLOOD POC Reviewed date:03/12/2025 08:52:01 AM Interpretation: Performing Lab:[facility], [address] [place] [phone] Notes/Report: PT, INR - [facility] 2.3 0.9-1.1 METER #: [id number] INTERNATIONAL NORMALIZED RATIO (INR) REFERENCE RANGES Reference [...] OC Reviewed date:03/12/2025 08:51:47 AM Interpretation: Performing Lab:[facility], [address] [place] [phone] Notes/Report: Prothrombin Time Whole Bld POC 27.8 11.1-13.5 sec INR WHOLE BLOOD POC Reviewed date:04/02/2025 12:25:58 PM Interpretation: Performing Lab:[facility], [address] [place] [phone] Notes/Report: PT, INR - [facility] 4.4 0.9-1.1 METER #: [id number] INTERNATIONAL NORMALIZED RATIO (INR) REFERENCE RANGES Reference [...] OC Reviewed date:04/02/2025 12:26:06 PM Interpretation: Performing Lab:[facility], [address] [place] [phone] Notes/Report: Prothrombin Time Whole Bld POC 52.3 11.1-13.5 sec INR WHOLE BLOOD POC Reviewed date:04/09/2025 01:00:49 PM Interpretation: Performing Lab:[facility], [address] [place] [phone] Notes/Report: PT, INR - [facility] 2.0 0.9-1.1 METER #: [id number] INTERNATIONAL NORMALIZED RATIO (INR) REFERENCE RANGES Reference [...] OC Reviewed date:04/09/2025 11:54:02 AM Interpretation: Performing Lab:[facility], [address] [place] [phone] Notes/Report: Prothrombin Time Whole Bld POC 24.2 11.1-13.5 sec INR WHOLE BLOOD POC Reviewed date:04/16/2025 12:38:18 PM Interpretation: Performing Lab:[facility], [address] [place] [phone] Notes/Report: PT, INR - [facility] 3.0 0.9-1.1 METER #: [id number] INTERNATIONAL NORMALIZED RATIO (INR) REFERENCE RANGES Reference [...] OC Reviewed date:04/16/2025 12:38:10 PM Interpretation: Performing Lab:[facility], [address] [place] [phone] Notes/Report: Prothrombin Time Whole Bld POC 36.0 11.1-13.5 sec INR WHOLE BLOOD POC Reviewed date:05/04/2025 09:07:14 PM Interpretation: Performing Lab:[facility], [address] [place] [phone] Notes/Report: PT, INR - [facility] 3.1 0.9-1.1 METER #: [id number] INTERNATIONAL NORMALIZED RATIO (INR) REFERENCE RANGES Reference [...] OC Reviewed date:05/04/2025 09:06:52 PM Interpretation: Performing Lab:[facility], [address] [place] [phone] Notes/Report: Prothrombin Time Whole Bld POC 36.9 11.1-13.5 sec INR WHOLE BLOOD POC Reviewed date:05/21/2025 11:57:08 AM Interpretation: Performing Lab:[facility], [address] [place] [phone] Notes/Report: PT, INR - [facility] 4.5 0.9-1.1 METER #: [id number] INTERNATIONAL NORMALIZED RATIO (INR) REFERENCE RANGES Reference [...] OC Reviewed date:05/21/2025 11:57:15 AM Interpretation: Performing Lab:[facility], [address] [place] [phone] Notes/Report: Prothrombin Time Whole Bld POC 53.7 11.1-13.5 sec INR WHOLE BLOOD POC Reviewed date:05/28/2025 11:14:53 AM Interpretation: Performing Lab:[facility], [address] [place] [phone] Notes/Report: PT, INR - [facility] 3.0 0.9-1.1 METER #: [id number] INTERNATIONAL NORMALIZED RATIO (INR) REFERENCE RANGES Reference [...] OC Reviewed date:05/28/2025 08:28:36 AM Interpretation: Performing Lab:[facility], [address] [place] [phone] Notes/Report: Prothrombin Time Whole Bld POC 36.1 11.1-13.5 sec INR WHOLE BLOOD POC Reviewed date:06/15/2025 02:49:16 PM Interpretation: Performing Lab:[facility], [address] [place] [phone] Notes/Report: PT, INR - [facility] 1.5 0.9-1.1 METER #: [id number] Doctor Notified INTERNATIONAL NORMALIZED RATIO (INR) REFERENCE [...] OC Reviewed date:06/15/2025 02:49:09 PM Interpretation: Performing Lab:[facility], [address] [place] [phone] Notes/Report: Prothrombin Time Whole Bld POC 17.5 11.1-13.5 sec INR WHOLE BLOOD POC Reviewed date:06/20/2025 05:56:33 PM Interpretation: Performing Lab:[facility], [address] [place] [phone] Notes/Report: PT, INR - [facility] 2.5 0.9-1.1 METER #: [id number] INTERNATIONAL NORMALIZED RATIO (INR) REFERENCE RANGES Reference [...] OC Reviewed date:06/20/2025 05:56:42 PM Interpretation: Performing Lab:[facility], [address] [place] [phone] Notes/Report: Prothrombin Time Whole Bld POC 29.4 11.1-13.5 sec INR WHOLE BLOOD POC Reviewed date:07/09/2025 12:47:32 PM Interpretation: Performing Lab:[facility], [address] [place] [phone] Notes/Report: PT, INR - [facility] 3.7 0.9-1.1 METER #: [id number] INTERNATIONAL NORMALIZED RATIO (INR) REFERENCE RANGES Reference [...] OC Reviewed date:07/09/2025 12:47:39 PM Interpretation: Performing Lab:[facility], [address] [place] [phone] Notes/Report: Prothrombin Time Whole Bld POC 43.9 11.1-13.5 sec INR WHOLE BLOOD POC Reviewed date:07/24/2025 05:01:48 PM Interpretation: Performing Lab:[facility], [address] [place] [phone] Notes/Report: PT, INR - [facility] 1.8 0.9-1.1 METER #: [id number] INTERNATIONAL NORMALIZED RATIO (INR) REFERENCE RANGES Reference [...] OC Reviewed date:07/24/2025 05:01:57 PM Interpretation: Performing Lab:[facility], [address] [place] [phone] Notes/Report: Prothrombin Time Whole Bld POC 21.1 11.1-13.5 sec INR WHOLE BLOOD POC Reviewed date:08/06/2025 12:32:56 PM Interpretation: Performing Lab:[facility], [address] [place] [phone] Notes/Report: PT, INR - Anti [facility]ag Clinic 1.6 0.9-1.1 METER #: [id number] INTERNATIONAL NORMALIZED RATIO (INR) REFERENCE RANGES Reference [...] OC Reviewed date:08/06/2025 12:32:48 PM Interpretation: Performing Lab:[address] [phone] Notes/Report: Prothrombin Time Whole Bld POC 18.8 11.1-13.5 sec INR WHOLE BLOOD POC Reviewed date:08/10/2025 04:26:39 PM Interpretation: Performing Lab:[facility], [address] [place] [phone] Notes/Report: PT, INR - Anti Coag Clinic 3.7 0.9-1.1 METER #: [id number] INTERNATIONAL NORMALIZED RATIO (INR) REFERENCE RANGES Reference [...] Prothrombin Time Whole Bld P OC Reviewed date:08/10/2025 04:23:52 PM Interpretation: Performing Lab:[address] [phone] Notes/Report: Prothrombin Time Whole Bld POC 44.3 [...] 1 TABLET BY MOUTH EVERY DAY Active Losartan Potassium 25 MG TAKE 1 TABLET B Y MOUTH EVERY DAY FOR 90 DAYS for 90 Active Tamsulosin HCl 0.4 MG TAKE 1 CAPSULE BY MOUTH EVERY DAY for 90 Active Sildenafil Citrate 100 MG 1 tablet as ne eded Orally Once a day for 30 day(s) 05/01/2019 Active Warfarin Sodium 5 MG TAKE 2 TABLETS ON WEDNESDAY, WEDNESDAY, WEDNESDAY, TAKE 2.5 TABLETS ON OTHER DAYS ORALLY ONCE A DAY 90 DAYS for 84 Active Immunizations Vaccine Route Administration Date Status [...] Problem Status W/U Status Risk Notes Problem 98693346 Prostatism (N40.0) Active confirmed Problem 77876614 Essential (prima ry) hypertension (I10) Active confirmed Problem 196942312262822 Erectile dysfunc tion due to arterial insufficiency (N52.01) Active confirmed Problem 7260527 Psoriasis (L40.9) Active confirmed Problem 715387080 Acquired hypothyroidism (E03.9) Active confirmed Problem 598741936 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) Active confirmed Problem 99077934 Alcohol abuse (F10.10) Active confirme d Problem 42518817 Heart murmur (R01.1) Active confirmed Problem 18835438 RBBB (I45.10) Active confirmed Problem 567776691 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) Active confirmed Problem 41619615 Chronic renal fa ilure, stage 3 (moderate) (N18.3) Active confirmed Problem 991093518 Pure hypercholesterolemia (E78.00) Active confirmed Problem 322097087 Other cardiac arrhythmia (I49.8) Active confirmed Problem 93001325519543 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) Active confirmed Problem 5846241930939363 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) Active confirmed Problem 944409060 Age-related inci pient cataract of both eyes (H25.093) Active confirmed Problem 630881151 Chronic kidney d isease (CKD) stage G1/A2, [...] Teto Gary MD [address] [place] [id number] 03/09/2025 Teto Gary Pure hypercholestero lemia E78.00 Teto Gary MD [address] [place] [id number] 09/15/2024 Teto Gary Left inguinal hernia K40.90 ; Annual physical exam Z00.00 ; Mechanical heart valve present Z95.2 ; Essential (primary) hypertension I10 ; Microscopic hematuria R31.29 ; Prostatism N40.0 ; Pure hypercholesterolemia E78.00 ; Acquired hypothyroidism E03.9 ; Colon cancer screening Z12.11 and Depression screening Z13.31 Teto Gary MD [address] [place] [id number] 11/13/2024 Teto Gary Mechanical heart mary ve present Z95.2 ; Mild dementia without behavioral disturbance, psychotic disturbance, mood disturbance, or anxiety, unspecified dementia type F03.A0 and Heme positive stool R19.5 Teto Gary MD [address] [place] [id number] 03/19/2025 Teto Gary Bilateral carotid ar jacque disease I77.9 ; Pure hypercholesterolemia E78.00 and Leg pain M79.606 Teto Gary MD [address] [place] [id number] 07/30/2025 Teot aGry Leg pain, left M79.6 05 Teto Gary MD [address] [place] [id number] 10/27/2024 Teto Gary MD [address] [place] [id number] 01/08/2025 Teto Gary MD [address] [place] [id number] 07/05/2025 Teto Gary MD [address] [place] [id number] 08/06/2025 Teto Gary Assessments Encounter Date Diagnosis (ICD Code) Assessment Notes Treatment Notes Treatment Clinical Notes Section Notes 03/09/2025 Pure hypercholesterolemia (ICD-10 - E78.00) 09/15/2024 [...] and if not to [facility]/ referral to [facility] [place] [facility] 09/15/2024 Mechanical heart mary ve present (ICD-10 - Z95.2) unable to hear murmer today 11/13/2024 Heme positive stool (ICD-10 - R19.5) is going to go to cardiology and then get a colonoscopy 03/19/2025 Leg pain (ICD-10 - M79.606) is going to try walking and see if it gets better. if not will try stopping his statins and see if that is the cause 09/15/2024 Essential (primary) hypertension (ICD-10 - I10) [...] 06/26/2021 Next Appt Details Provider Name:Teto Lizzie Jose Daniel ier, 09/13/2025 07:30:00 AM, [address] [place] [address], [address], [phone], Provider Name:Teto Sky ier, 09/20/2025 01:00:00 PM, [address] [place] [address], [place] [address], [place], [place], [id number], Insurance Providers Payer Name Payer Address Payer Phone Subscriber Number Group Number Insured Name Patient Relationship to Insured Coverage Start Date Coverage End Date [employer]AGE [address] [place], [place] [id number] LAVERN LIV[place] Self - patient is the insured [facility] [address] [place] [address] [id number] L[employer]ERN [place]IV[place] Self - patient is the insured Medical (General) History Medical History History ICD Code Needs repeat echo in 06/2017; echo done Had Positive Cologuard in 20 19 - needs Colonoscopy still needs colonoscopy 2022 is waiting to get bills paid still not getting colonoscopy 2023 had hematuia workup with cysto and ct Lung nodule R91.[address] and needs no further f/u hematuria. refuses evaluation 2023
--- NOTE | 2025-08-20 08:07 | MHC.OFFVISCO ---
Intake Intake Visit Reasons: Anticoagulation Allergies diphenhydramine (From BENADRYL) Allergy (Intermediate, Verified 08/20/25 08:03) RESTLESS LEGS lisinopril (LISINOPRIL) Allergy (Intermediate, Verified 08/20/25 08:03) DIZZINESS Lisiopril/HCTZ Allergy (Unknown, Uncoded 08/20/25 08:03) dizziness Medication List - Last Reconciled 08/20/25 by Noemi Holder RN acetaminophen 975 mg PO QID PRN amlodipine 10 mg PO DAILY docusate sodium 100 mg PO BID PRN levothyroxine 150 mcg PO DAILY losartan 25 mg PO DAILY metoprolol succinate ER 50 mg PO DAILY rosuvastatin 40 mg PO DAILY tamsulosin (Flomax) 0.4 mg PO DAILY warfarin 5 mg See Protocol PO DAILY Nursing Note INR: 2.1- in therapeutic range 2-3 Medications and supplements reviewed- no changes No changes in health, diet, medications, or supplements, Denies any signs and symptoms of bleeding or bruising or clotting. Bleeding, bruising, clotting discussed Nutritional guidance given Dose: 10mg x 6, 7.5mg x 1- pt states has been following this dosing F/U INR: 2 weeks Patient verbalizes understanding of instructions given pt c.o left knee pain- upcoming ortho appt on wed with cane Coding Level of Care Code Est Patient Level 1 Diagnoses Current use of anticoagulant therapy Z79.01 Assessment & Plan Assessment & Plan (1) Current use of anticoagulant therapy: Code(s): Z79.01 - roasterman (current) 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
[2025-08-20 08:08] LABS: Prothrombin Time Whole Bld POC 25.5 sec (11.1-13.5); ~PT, ~INR - Anti Coag Clinic 2.1 (0.9-1.1)
== END 2025-08-20 08:14 | disposition home or self-care (01) ==
LOC: HO.ACS 07:58
PROVIDERS: PCP Internal Medicine; Visit Provider Internal Medicine Medical Oncology
DX: Z79.01 Long term (current) use of anticoagulants (principal)

== ENCOUNTER → 2025-08-20 07:58 | Outpatient (BNVA) | payer MEDICARE, MEDICAID, SELFPAY | PROVIDERS: PCP Internal Medicine; Visit Provider Internal Medicine Medical Oncology | DX: Z79.01 Long term (current) use of anticoagulants (principal) | CPT/HCPCS: 85610; 99211 ==

== ENCOUNTER 2025-08-22 13:47 | Outpatient (REF) | payer MEDICARE, MEDICAID, SELFPAY ==
--- OUTSIDE RECORDS SUMMARY | 2024-08-18 03:00 | XMS_ITS ---
Author Organization Teto Gary MD Address [address] [place], [place] [phone] Care Team Providers Care Senior Quality Technician Name Role Phone Teto Gary Primary Care Provider Results Component Value Reference Range Notes Complete Blood Count Auto Di ff Reviewed date:08/18/2024 12:47:17 PM Interpretation: Performing Lab:[facility], [address] [place] [phone] Notes/Report: White Blood Count 6.2 4.8-10.8 X10*3/uL [...] NRBC Abs Auto 0.000 0.0-0.012 X10*3/uL Comprehensive [place]. Panel Fa st Reviewed date:08/18/2024 01:03:50 PM Interpretation: Performing Lab:[facility], [address] [place] [phone] Notes/Report: Sodium 141 135-145 mmol/L Potassium 3.9 3.3-5.1 mmol/L Chloride 109 96-108 mmol/L Carbon Dioxide 25 22-29 mmol/L Anion Gap 11 12-20 Blood Urea Nitrogen 20 9-16 mg/dL Creatinine 1.31 0.5-1.4 mg/dL Estimated Glomerular Filt Rate 54 NOTE: For -Danish individuals, multiply the result by 1.210. Chronic [...] Panel Reviewed date:08/18/2024 12:35:19 PM Interpretation: Performing Lab:[address] [phone] Notes/Report: Triglycerides 84 <150 mg/dL Desirable Triglyceride: [...] (Free>4and<10) Reviewed date:08/18/2024 12:34:12 PM Interpretation: Performing Lab:[address] [phone] Notes/Report: PSA,Total (Free>4and<10) 3.01 0.00-4.00 ng/mL A [...] Reviewed date:09/18/2024 10:17:51 AM Interpretation:ORQUIDEA 09/15 Performing Lab:[address] [place] [phone] Notes/Report: Urine, Clean Catch Color Urine Yellow Appearance Urine Clear PH 6.0 5.0-9.0 Glucose Urine UA Negative Negative mg/dL Urine Blood Large (3+) Negative Specific [place] - Urine 1.015 1.005-1.025 Urine Protein 300 [...] Location Date Provider Diagnosis Teto Gary MD [address] [place] [address] [place] [phone] 08/18/2024 Teto Gary Blood tests for rout [...] Details Provider Name:Teto kaye, 09/13/2025 07:30:00 AM, [address] [place] [address], [address], [place], [place], [phone], Provider Name:Teto kaye, 09/20/2025 01:00:00 PM, [address] [facility], [address], [place], [place], [phone], Progress Notes * LAVERN LIVINGSTON RDOB:1950 (74 yo M)Acc No.[id number]:08/18/2024 Progress Note Patient: LAVERN EDUARDO Provider: Naveen Gary MD :1950 A ge:73 Y S ex:Male Date:08/18/2024 Address:[address] [place], [place] [phone] Subjective: * Chief Complaints: * 1 . [...] Time - 08/18/2024 08:00 AM) ?LAB: [facility] [place]. Panel Fast (Collection Date & Time - [...] Time - 08/18/2024 08:00 AM) ?LAB: [facility] [place]. Panel Fast (Collection Date & Time - [...] Time - 08/18/2024 08:00 AM) ?LAB: [facility] [place]. Panel Fast (Collection Date & Time - [...] Time - 08/18/2024 08:00 AM) ?LAB: [facility] [place]. Panel Fast (Collection Date & Time - 08/18/2024 08:00 AM) ?LAB: Lipid Panel (Collection Date & Time - 08/18/2024 08:00 AM) ?LAB: PSA,Total (Free>4and<10) (Collection Date & Time - 08/18/2024 08:00 AM) ?LAB: UA ClnCatch+Micro w/rflx Cult (Collection Date & Time - 08/18/2024 08:00 AM)* CharitoOlga A 024 10:17:35 AM EST > LAVERN KEPT HIS EXAM APPT * Procedure Codes: 3 6415 VENIPUNCT, ROUTINE* * * The named appointment provid er may or may not be the originator of this progress note, and it is not deemed complete until electronically signed by the appointment provider. Sign off status: Pending * Provider: Naveen Gary MD Date: 10/18/2023 Generated for Raffaele lara/Amnita/Yasmine on: 10/23/2024 05:10 PM EST
--- OUTSIDE RECORDS SUMMARY | 2024-09-15 08:45 | XMS_ITS ---
Author Organization Teto Gary MD Address [address] [place], [place] [id number] Care Team Providers Care Distribution Operation Supervisor Name Role Phone Teto Gary Primary Care Provider [phone] Allergies Allergen (clinical drug ingredient) Drug/Non Drug Allergy documented on EMR Reaction Allergy Type Onset Date Status diphenhydramine Benadryl Unknown Drug Allergy A ctive Results Component Value Reference Range Notes Occult Blood, Stool, Guaiac Reviewed date:09/15/2024 02:23:11 PM Interpretation:Negative Performing Lab: Notes/Report: Negative Occult Blood, Stool, Guaiac Neg REASON FOR VISIT ANNUAL EXAM, CBACK HEMATURIA, ? left inguinal hernia the size of a doorknob Medications Medication SIG (Take, Route, Frequency, Duration) Notes Start Date End Date Status Sildenafil Citrate 100 MG 1 tablet as ne eded Orally Once a day for 30 day(s) 05/01/2019 Active Losartan Potassium 25 MG 1 tablet Orally Once a day 02/29/2024 Active Tamsulosin HCl 0.4 MG TAKE 1 CAPSULE BY MOUTH EVERY DAY Active amLODIPine Besylate 10 MG TAKE 1 TABLET BY MOUTH EVERY DAY Active Rosuvastatin Calcium 40 MG TAKE 1 TABLET BY MOUTH EVERY DAY Active Metoprolol Succinate ER 50 MG take 1 tablet by mouth daily Orally Once a day Active Warfarin Sodium 5 MG TAKE 2 TABLETS ON WEDNESDAY, WEDNESDAY, WEDNESDAY, TAKE 2.5 TABLETS ON OTHER DAYS ORALLY ONCE A DAY 90 DAYS Active Levothyroxine Sodium 150 MCG TAKE 1 TABL ET BY MOUTH EVERY MORNING ON AN EMPTY STOMACH Orally Once a day Active Social History Tobacco Use: Social History Observation Description Date Details (start date - stop date) Never Smoker NA - NA Tobacco Use/Smoking Question Answer Notes Patient is a nonsmoker Additional Findings: Tobacco Non-User Cu rrent non-smoker, currently using no form of tobacco Alcohol Screen Question Answer Notes Did you have a drink containing alcohol in the p ast year? No Points 0 Interpretation Negative Section Notes: Patient states drinks a pint of whiskey everyday. Today starts a new life no more drinking as of 08-04-21 has not had any alcohol x 1 month 08-19-23 patient sttes stopped drinking 2 weeks ago. Vital Signs Blood pressure systolic 154 mm Hg 09/15/20 24 Blood pressure diastolic 60 mm Hg 024 Height 71.5 in 09/15/2024 Weight 253 lbs 09/15/2024 BMI 34.79 kg/m2 09/15/2024 Encounters Encounter Location Date Provider Diagnosis Teto Gary MD [address] [place] [address] [place] [phone] 09/15/2024 Teto Gary Left inguinal hernia K40.90 ; Annual physical exam Z00.00 ; Mechanical heart valve present Z95.2 ; Essential (primary) hypertension I10 ; Microscopic hematuria R31.29 ; Prostatism N40.0 ; Pure hypercholesterolemia E78.00 ; Acquired hypothyroidism E03.9 ; Colon cancer screening Z12.11 and Depression screening Z13.31 Assessments Encounter Date Diagnosis (ICD Code) Assessment Notes Treatment Notes Treatment Clinical Notes Section Notes 09/15/2024 Left inguinal hernia (ICD-10 - K40.90) have explained what a strangulated hernia is if it occcurs and the need to have it repaired immediately. reducible at prestn he doesn't want to do anything 09/15/2024 Annual physical exam (ICD-10 - Z00.00) labs reviewed and discussed with patient 09/15/2024 Mechanical heart mary ve present (ICD-10 - Z95.2) unable to hear murmer today 09/15/2024 Essential (primary) hypertension (ICD-10 - I10) adequate control, will contnue current regiment 09/15/2024 Microscopic hematuri a (ICD-10 - R31.29) refuses any evaluation 09/15/2024 Prostatism (ICD-10 - N40.0) will continue current regiment 09/15/2024 Pure hypercholesterolemia (ICD-10 - E78.00) stable, will continue current regiment 09/15/2024 Acquired hypothyroid ism (ICD-10 - E03.9) stable, will continue current regiment 09/15/2024 Colon cancer screeni ng (ICD-10 - Z12.11) guaiac negative 09/15/2024 Depression screening (ICD-10 - Z13.31) negative screen Plan Of Treatment Medication Medication Name Sig Start Date Stop Date Notes Losartan Potassium 25 MG 1 tablet Orally Once a day 2023 Tamsulosin HCl 0.4 MG TAKE 1 CAPSULE BY MOUTH EVERY DAY amLODIPine Besylate 10 MG TAKE 1 TABLET BY MOUTH EVERY DAY Rosuvastatin Calcium 40 MG TAKE 1 TABLET BY MOUTH EVERY DAY Metoprolol Succinate ER 50 MG take 1 tab let by mouth daily Orally Once a day Warfarin Sodium 5 MG TAKE 2 TABLETS ON , WEDNESDAY, WEDNESDAY, TAKE 2.5 TABLETS ON OTHER DAYS ORALLY ONCE A DAY 90 DAYS Levothyroxine Sodium 150 MCG TAKE 1 TABL ET BY MOUTH EVERY MORNING ON AN EMPTY STOMACH Orally Once a day Treatment Notes Assessment Notes Left inguinal hernia have explained what a strangulated hernia is if it occcurs and the need to have it repaired immediately. reducible at prestn he doesn't want to do anything Annual physical exam labs reviewed and d iscussed with patient Mechanical heart valve present unable to hear murmer today Essential (primary) hypertension adequat e control, will contnue current regiment Microscopic hematuria refuses any evalua tion Prostatism will continue curren t regiment Pure hypercholesterolemia stable, will c ontinue current regiment Acquired hypothyroidism stable, will con tinue current regiment Colon cancer screening guaiac negative Depression screening negative screen Next Appt Details Provider Name:Teto kaye, 09/13/2025 07:30:00 AM, [address] [place] [address], [address], [place], [place], [phone], Provider Name:Teto Sky ier, 09/20/2025 01:00:00 PM, [address], [address], [place], [phone], Progress Notes * LAVERN LIVINGSTON RDOB:1950 (74 yo M)Acc No.[id number]:09/15/2024 Progress Notes Patient: LAVERN EDUARDO Provider: Naveen Gary MD :1950 A ge:74 Y S ex:Male Date:09/15/2024 Address:[address] [place] [address] [place], [id number] Subjective: * Chief Complaints: * A NNUAL EXAMCBACK HEMATURIA? left inguinal hernia the size of a doorknob * HPI: D epression Screening: PHQ-9 L ittle interest or pleasure in doing things N ot at all, F eeling down, depressed, or hopeless N ot at all, T rouble falling or staying asleep, or sleeping too much N ot at all, F eeling tired or having little energy N ot at all, P oor appetite or overeating N ot at all, F eeling bad about yourself or that you are a failure, or have let yourself or your family down N ot at all, T rouble concentrating on things, such as reading the newspaper or watching television N ot at all, M oving or speaking so slowly that other people could have noticed; or the opposite, being so fidgety or restless that you have been moving around a lot more than usual N ot at all, T houghts that you would be better off or of hurting yourself in some way N ot at all, T otal Score 0 . I nterpretation and Intervention D epression Screening Findings N egative, F ollow-Up for Depression : review of PHQ-9 found negative result, no follow-up needed. C ommunication Needs: Communication Needs D oes the patient have a hearing impairment N o, D oes the patient have a vision impairment? Y es, I f yes, what is the vision impairment? G lasses, D oes the patient have a cognition impairment? N o. F all Risk: History H ave you had any falls with injury in the past year? N o, H ave you had two or more falls in the past year? N o. S TANG Questions: SDOH Questions I n the past year have you been worried about losing housing? N o, I n the past year have you or any family members you live with been unable to get any of the following when it was really needed? Check all that apply: N one. S ymptom(s): patient is a 74 yo male here for annual visit with review of recent labs and follow up of chronic issues, had a coughing spell and all of a sudden had a lump in groin. has blood in urine still and refuses to do anything. * ROS: G eneral/Constitutional: Patient denies f atigue , headache. C hange in appetite?denies. C hills d enies. F ever d enies. O phthalmologic: Blurred vision d enies. D ischarge d enies. P ain d enies. E NT: Patient denies d ecreased sense of smell , any loss of taste , sore throat. D ecreased hearing d enies. S ore throat d enies. S wollen glands d enies. E ndocrine: Cold intolerance d enies. E xcessive thirst d enies. H eat intolerance d enies. W eight loss d enies. R espiratory: Cough d enies. S hortness of breath at rest d enies. S hortness of breath with exertion d enies. W heezing d enies. C ardiovascular: Chest pain at rest d enies. C hest pain with exertion?denies. I rregular heartbeat d enies. S hortness of breath d enies. ? G astrointestinal: Abdominal pain d enies. C hange in bowel habits d enies. D iarrhea d enies. N ausea d enies. R ectal bleeding d enies. V omiting d enies . G enitourinary: Blood in urine d enies. D ifficulty urinating d enies. F requent urination d enies. M usculoskeletal: Patient denies m uscle aches. P atient complaining of?when he walks 100 yards gets pain in rt posterior ribs/ no shortness of breath. P ainful joints d enies. W eakness d enies. P eripheral Vascular: Patient denies r ed and blue toes. S kin: Dry skin d enies. I tching d enies. D enies?Mole(s), changes in moles, new moles or any lesions of concern. D enies P hotosensitivity. R tereso d enies. N eurologic: Dizziness d enies. F ainting d enies. H eadache?denies. * Medical History: * Surgical History: * Hospitalization/Major Diagno stic Procedure: * Family History: F ather: 51 yrs. M other: 78 yrs. 1 daughter(s) . . Mother-Emphysema Father-[place] 1 brother 1 sister, Denies mental health/substance abuse family history, No pertinent family medical history 1 brother 73 Covid 1 sister lung cancer, No pertinent family medical history. * Social History: T obacco Use: T obacco Use/Smoking P brendan is a n onsmoker, A dditional Findings: Tobacco Non-User C urrent non-smoker, currently using no form of tobacco. D rugs/Alcohol: A lcohol Screen D id you have a drink containing alcohol in the past year? N o, P oints 0 , I nterpretation N egative. M iscellaneous: C affeine: yes, frequency:, 1-2 cups per day. no Exercise. Home smoke detector use: yes. Housing: renting. Living with: alone. Marital status: single. Occupation: weeks/months/years, works part-time. no Travel outside of the [place]. P atmarnie states drinks a pint of whiskey everyday. Today starts a new life no more drinking as of 08-04-21 has not had any alcohol x 1 month 08-19-23 patient sttes stopped drinking 2 weeks ago. * Medications: T akingTamsulosin HCl 0.4 MG Capsule TAKE 1 CAPSULE BY MOUTH EVERY DAY Sildenafil Citrate 100 MG Tablet 1 tablet as needed Orally Once a dayLosartan Potassium 25 MG Tablet 1 tablet Orally Once a dayMetoprolol Succinate ER 50 MG Tablet Extended Release 24 Hour take 1 tablet by mouth daily Orally Once a dayLevothyroxine Sodium 150 MCG Tablet TAKE 1 TABLET BY MOUTH EVERY MORNING ON AN EMPTY STOMACH Orally Once a dayWarfarin Sodium 5 MG Tablet TAKE 2 TABLETS ON WEDNESDAY, WEDNESDAY, WEDNESDAY, TAKE 2.5 TABLETS ON OTHER DAYS ORALLY ONCE A DAY 90 DAYS Rosuvastatin Calcium 40 MG Tablet TAKE 1 TABLET BY MOUTH EVERY DAY amLODIPine Besylate 10 MG Tablet TAKE 1 TABLET BY MOUTH EVERY DAY Medication List reviewed and reconciled with the patientTaking Tamsulosin HCl 0.4 MG Capsule TAKE 1 CAPSULE BY MOUTH EVERY DAY Taking Sildenafil Citrate 100 MG Tablet 1 tablet as needed Orally Once a dayTaking Losartan Potassium 25 MG Tablet 1 tablet Orally Once a dayTaking Metoprolol Succinate ER 50 MG Tablet Extended Release 24 Hour take 1 tablet by mouth daily Orally Once a dayTaking Levothyroxine Sodium 150 MCG Tablet TAKE 1 TABLET BY MOUTH EVERY MORNING ON AN EMPTY STOMACH Orally Once a dayTaking Warfarin Sodium 5 MG Tablet TAKE 2 TABLETS ON WEDNESDAY, WEDNESDAY, WEDNESDAY, TAKE 2.5 TABLETS ON OTHER DAYS ORALLY ONCE A DAY 90 DAYS Taking Rosuvastatin Calcium 40 MG Tablet TAKE 1 TABLET BY MOUTH EVERY DAY Taking amLODIPine Besylate 10 MG Tablet TAKE 1 TABLET BY MOUTH EVERY DAY Medication List reviewed and reconciled with the patient * Allergies: B enadryl: Allergyyes[Allergies Verified] Objective: * Vitals: H t: 71.5, Wt:253, BMI:34.79, BP:154/60, Repeat BP:144/60. * P ast Orders: L ab:Complete Blood Count Auto Diff (Order Date - 08/18/2024) (Collection Date - 08/18/2024) Value Reference Range White Blood Count 6.2 4.8-10.8 - X10*3/uL Red Blood Count 4.34 L 4.60-5.80 - X10*6/uL Hemoglobin 12.8 L 14.0-18.0 - g/dl Hematocrit 39.5 L 42.0-52.0 - % Mean Corpuscular Volume 91.0 80.0-98.0 - fL Mean Corpuscular Hemoglobin 29.5 27.0-33.0 - pg Mean Corpuscular HGB Conc 32.4 31.0-36.0 - g/ dl Red Cell Distribution Width 14.7 11.0-16.0 - % Platelet Count 205 160-400 - X10*3/uL Mean Platelet Volume 10.5 9.4-12.4 - fL Neutrophils Percent Auto 63.9 45-73 - % Imm Gran Pct Auto 0.2 0.0-0.4 - % Lymphocytes Percent Auto 22.8 20-40 - % Monocytes Percent Auto 10.0 2-11 - % Eosinophils Percent Auto 2.9 0-4 - % Basophils Percent Auto 0.2 0-2 - % NRBC Pct Auto 0.0 0.0-0.2 - /100WBC Neutrophils Absolute Auto 4.0 2.0-8.3 - x10* 3/uL Imm Gran Abs Auto 0.01 0.00-0.03 - X10*3/uL Lymphocytes Absolute Auto 1.4 1.2-4.9 - X10* 3/uL Monocytes Absolute Auto 0.6 0.1-1.2 - X10*3/ uL Eosinophils Absolute Auto 0.2 0.0-0.4 - X10* 3/uL Basophils Absolute Auto 0.0 0.0-0.2 - X10*3/ uL NRBC Abs Auto 0.000 0.0-0.012 - X10*3/uL L ab:Comprehensive [place]. Panel Fast (Order Date - 08/18/2024) (Collection Date - 08/18/2024) Value Reference Range Sodium 141 135-145 - mmol/L Bilirubin Total 1.0 0.0-1.0 - mg/dL Aspartate Amino Transferase 28 5-37 - U/L Alanine Aminotransferase 18 0-40 - U/L Total Protein 7.2 6.5-8.0 - g/dL Albumin Level 4.0 3.5-5.0 - g/dL Alkaline Phosphatase 70 39-117 - U/L Potassium 3.9 3.3-5.1 - mmol/L Chloride 109 H 96-108 - mmol/L Carbon Dioxide 25 22-29 - mmol/L Anion Gap 11 L 12-20 - Blood Urea Nitrogen 20 H 9-16 - mg/dL Creatinine 1.31 0.5-1.4 - mg/dL Estimated Glomerular Filt Rate 54 - Glucose Fasting 116 H 60-99 - mg/dL Calcium 9.6 8.4-10.2 - mg/dL L ab:Lipid Panel (Order Date - 08/18/2024) (Collection Date - 08/18/2024) Value Reference Range Triglycerides 84 <150 - mg/dL Cholesterol 167 <200 - mg/dL LDL Cholesterol Calculated 63 <100 - mg/dL HDL Cholesterol 88 >40 - mg/dL L ab:PSA,Total (Free>4and<10) (Order Date - 08/18/2024) (Collection Date - 08/18/2024) Value Reference Range PSA,Total (Free>4and<10) 3.01 0.00-4.00 - ng/ mL * Examination: G eneral Examination: GENERAL APPEARANCE: w ell developed, well nourished, in no acute distress. HEAD: n ormocephalic, atraumatic. EYES: p upils equal, round, reactive to light and accommodation, sclera non-icteric. EARS: n ormal. ORAL CAVITY: m ucosa moist. THROAT: c lear. NECK/THYROID: n kj supple, full range of motion, no cervical lymphadenopathy, no bruits. SKIN: w arm and dry, no suspicious lesions in mid back is an old sebaceous cyst. HEART: r egular rate and rhythm, S1, S2 normal, no murmurs.? LUNGS: c lear to auscultation bilaterally. ABDOMEN: s oft, nontender, nondistended, bowel sounds present, normal, no organomegaly , no masses palpable. RECTAL EXAM: n ormal tone, no external hemorrhoids, no masses palpable, prostate normal, stool guaiac negative. MALE GENITOURINARY: u ncircumcised , no penile lesions or discharge , no testicular mass , testes descended bilaterally. EXTREMITIES: n o clubbing, cyanosis, or edema. NEUROLOGIC: n onfocal, motor strength normal upper and lower extremities, sensory exam intact. Assessment: * Assessment: 1. A nnual physical exam - Z00.00 (Primary) 2 . L eft inguinal hernia - K40.90 3 .?Mechanical heart valve present - Z95.2 4 . E ssential (primary) hypertension - I10 5 . M icroscopic hematuria - R31.29 6 . P rostatism - N40.0 7 . P ure hypercholesterolemia - E78.00 8 . A cquired hypothyroidism - E03.9 9 . C olon cancer screening - Z12.11 1 0. D epression screening - Z13.31 Plan: * Treatment: 2. L eft inguinal hernia Notes: have explained what a strangulated hernia is if it occcurs and the need to have it repaired immediately. reducible at prestn he doesn't want to do anything 3. M echanical heart valve present Continue Warfarin Sodium Tablet, 5 MG, TAKE 2 TABLETS ON WEDNESDAY, WEDNESDAY, WEDNESDAY, TAKE 2.5 TABLETS ON OTHER DAYS ORALLY ONCE A DAY 90 DAYS. Notes: unable to hear murmer today 4. E ssential (primary) hypertension Continue Losartan Potassium Tablet, 25 MG, 1 tablet, Orally, Once a day; C ontinue Metoprolol Succinate ER Tablet Extended Release 24 Hour, 50 MG, take 1 tablet by mouth daily, Orally, Once a day; C ontinue amLODIPine Besylate Tablet, 10 MG, TAKE 1 TABLET BY MOUTH EVERY DAY. Notes: adequate control, will contnue current regiment 5. M icroscopic hematuria Notes: refuses any evaluation 6. P rostatism Continue Tamsulosin HCl Capsule, 0.4 MG, TAKE 1 CAPSULE BY MOUTH EVERY DAY. Notes: will continue current regiment 7. P ure hypercholesterolemia Continue Rosuvastatin Calcium Tablet, 40 MG, TAKE 1 TABLET BY MOUTH EVERY DAY. Notes: stable, will continue current regiment 8. A cquired hypothyroidism Continue Levothyroxine Sodium Tablet, 150 MCG, TAKE 1 TABLET BY MOUTH EVERY MORNING ON AN EMPTY STOMACH, Orally, Once a day. Notes: stable, will continue current regiment 9. C olon cancer screening L AB: Occult Blood, Stool, Guaiac N egative Value Reference Range O ccult Blood, Stool, Guaiac Neg Notes: guaiac negative??10.?Depression screening? Notes: negative screen?? * Procedure Codes: 8 2270 TEST FOR BLOOD, FECES * Preventive Medicine: Counseling: C are goal follow-up plan: C ounseling for abnormal BMI provided?Yes, A nirav Normal BMI Follow-up Naveen trimble encouragement to exercise. * * Sign off status: Completed true * Provider: Naveen Gary MD Date: 11/16/2023 Generated for Raffaele lara/Aminta/eTransmitting on: 10/23/2024 05:10 PM EST History and Physical Notes * HPI (History of Present Illness) Category Sub-Category Detail Notes Category Not es Symptom(s) patient is a 74 yo male here for annual visit with review of recent labs and follow up of chronic issues, had a coughing spell and all of a sudden had a lump in groin. has blood in urine still and refuses to do anything Depression Screening PHQ-9 Little inte rest or pleasure in doing things: Not at all Feeling down, depressed, or hopeless: No t at all Trouble falling or staying asleep, or sl eeping too much: Not at all Feeling tired or having little energy: N ot at all Poor appetite or overeating: Not at all Feeling bad about yourself o r that you are a failure, or have let yourself or your family down: Not at all Trouble concentrating on thi ngs, such as reading the newspaper or watching television: Not at all Moving or speaking so slowly that other people could have noticed; or the opposite, being so fidgety or restless that you have been moving around a lot more than usual: Not at all Thoughts that you would be b walt off or of hurting yourself in some way: Not at all Total Score: 0 Interpretation and Intervention Depression Marine gregory Findings: Negative Follow-Up for Depression: : review of PH Q-9 found negative result, no follow-up needed SDOH Questions SDOH Questions In the past year have you been worried about losing housing?: No In the past year have you or any family members you live with been unable to get any of the following when it was really needed? Check all that apply:: None Fall Risk History Have you had any falls with injury i n the past year?: No Have you had two or more falls in the st year?: No Communication Needs Communication Needs Does the patient have a hearing impairment: No Does the patient have a vision impairmen t?: Yes If yes, what is the vision impairment?: Glasses Does the patient have a cognition impair ment?: No Examination Category Sub-Category Detail Notes Category Not es General Examination GENERAL APPEARANCE: well dev eloped, well nourished, in no acute distress HEAD: normocephalic, atrau matic EYES: pupils equal, round, reactive to light and accommodation, sclera non-icteric EARS: normal THROAT: clear NECK/THYROID: neck supple, full ra nge of motion, no cervical lymphadenopathy, no bruits HEART: regular rate and rhy thm, S1, S2 normal, no murmurs LUNGS: clear to auscultatio n bilaterally ABDOMEN: soft, nontender, non distended, bowel sounds present, normal, no organomegaly , no masses palpable NEUROLOGIC: nonfocal, motor stre ngth normal upper and lower extremities, sensory exam intact SKIN: warm and dry, no margaret picious lesions in mid back is an old sebaceous cyst EXTREMITIES: no clubbing, cyanosi s, or edema MALE GENITOURINARY: uncircumcised , no p enile lesions or discharge , no testicular mass , testes descended bilaterally RECTAL EXAM: normal tone, no exte rnal hemorrhoids, no masses palpable, prostate normal, stool guaiac negative ORAL CAVITY: mucosa moist
--- OUTSIDE RECORDS SUMMARY | 2024-10-27 05:12 | XMS_ITS ---
Author Organization Teto Gary MD Address [address] [place] [phone] Care Team Providers Care Ammunition Specialist Name Role Phone CookieTeto Primary Care Provider REASON FOR VISIT ER Visit rec'd Encounters Encounter Location Date Provider Diagnosis Teto Gary MD 10 [facility] [address] [place] [phone] 10/27/2024 Teto Gary Plan Of Treatment Next Appt Details Provider Name:Teto Sky ier, 09/13/2025 07:30:00 AM, [address] [place] [address], Suite [facility], [place], [place], [phone], Provider Name:Teto kaye, 09/20/2025 01:00:00 PM, [address] [place] [address], [place] [address], [place], [place], [phone], Progress Notes * LAVERN LIVINGSTON RDOB:1950 (74 yo M)Acc No.[id number]:10/27/2024 Patient: LAVERN EDUARDO :1950 A ge:74 Y S ex:Male Address:[address] [place] [address], [address] * true * Date: Generated for Raffaele lara/Aminta/Yasmine on: 10/23/2024 05:11 PM EST
--- OUTSIDE RECORDS SUMMARY | 2024-11-13 06:30 | XMS_ITS ---
Author Organization Teto Gary MD Address [address] [place], [place] [phone] Care Team Providers Care Senior Oracle Applications Developer Name Role Phone Teto Gary Primary Care Provider [phone] Allergies Allergen (clinical drug ingredient) Drug/Non Drug Allergy documented on EMR Reaction Allergy Type Onset Date Status diphenhydramine Benadryl Unknown Drug Allergy A ctive REASON FOR VISIT was [place] [facility] [place], has already seen the [...] Date Provider Diagnosis Teto Gary MD [address] [place], [place] [phone] 11/13/2024 Teto Gary Mechanical heart valve present [...] Provider Name:Teto kaye, 09/13/2025 07:30:00 AM, [address], [address], [place], [place], [phone], Provider Name:Teto kaye, 09/20/2025 01:00:00 PM, [address], [address], [place], [place], [phone], Progress Notes * LAVERN LIVINGSTON RDOB:1950 (74 yo M)Acc No.[id number]:11/13/2024 Progress Notes Patient: LAVERN EDUARDO Provider: Naveen Gary MD :1950 A ge:74 Y S ex:Male Date:11/13/2024 Address:[address] [place] [address] [place], [id number] Subjective: * Chief Complaints: * [place] [facility] [place], has already seen the [...] concerned that he is not seeing a nipple threader at present. memory has been bad for [...] 11/13/2024 Generated for Raffaele lara/Aminta/Yasmine on: 1 10/23/2024 05:11 PM EST History and Physical Notes * [...] concerned that he is not seeing a nipple threader at present. memory has been bad for [...]
--- OUTSIDE RECORDS SUMMARY | 2025-01-08 04:45 | XMS_ITS ---
Author Organization Teto Gary MD Address [address] [place] [phone] Care Team Providers Care Salvage Determiner Name Role Phone CookieZacn Primary Care Provider [phone] REASON FOR VISIT FYI INR results Encounters Encounter Location Date Provider Diagnosis Teto Gary MD 10 [facility] [address] [place] [phone] 01/08/2025 Teto Gary Plan Of Treatment Next Appt Details Provider Name:Teto Sky ier, 09/13/2025 07:30:00 AM, [address] [place] [address], Suite [facility], [place], [place], [phone], Provider Name:Teto Sky ier, 09/20/2025 01:00:00 PM, [address] [place] [address], [place] [address], [place], [place], [phone], Progress Notes * LAVERN LIVINGSTON RDOB:1950 (74 yo M)Acc No.[id number]:01/08/2025 Patient: LAVERN EDUARDO :1950 A ge:74 Y S ex:Male Address:[address] [place] [address], [address] * true * Date: Generated for Raffaele lara/Aminta/Yasmine on: 10/23/2024 05:10 PM EST
--- OUTSIDE RECORDS SUMMARY | 2025-03-09 02:15 | XMS_ITS ---
Author Organization Teto Gary MD Address [address] [place], [place] [phone] Care Team Providers Care Metal Stud Framer Name Role Phone Teto Gary Primary Care Provider Results Component Value Reference Range Notes Liver Panel Reviewed date:03/09/2025 04:17:25 PM Interpretation: Performing Lab:[facility], [address] [place] [phone] Notes/Report: Bilirubin Total 0.8 0.0-1.0 mg/dL Bilirubin Direct 0.3 0.0-0.5 mg/dL Aspartate Amino Transferase 27 5-37 U/L Alanine Aminotransferase 19 0-40 U/L Total Protein 7.1 6.5-8.0 g/dL Albumin Level 4.1 3.5-5.0 g/dL Alkaline Phosphatase 66 39-117 U/L Lipid Panel with Reflex Reviewed date:03/09/2025 04:17:09 PM Interpretation: Performing Lab:[facility], [address] [place] [phone] Notes/Report: Triglycerides 79 <150 mg/dL Desirable Triglyceride: [...] Date Provider Diagnosis Teto Gary MD [address] [place] [address] [place] [phone] 03/09/2025 Teto Gary Pure hypercholestero lemia E78.00 Assessments Encounter Date Diagnosis (ICD Code) Assessment Notes Treatment Notes Treatment Clinical Notes Section Notes 03/09/2025 Pure hypercholesterolemia (ICD-10 - E78.00) Plan Of Treatment Next Appt Details Provider Name:Teto Sky ier, 09/13/2025 07:30:00 AM, [address] [place] [address], Suite [facility], [place], [place], [phone], Provider Name:Teto Faithdebra ier, 09/20/2025 01:00:00 PM, [address] [place] [address], [place] [address], [place], [place], [phone], Progress Notes * LAVERN LIVINGSTON RDOB:1950 (74 yo M)Acc No.[id number]:03/09/2025 Progress Note Patient: LAVERN EDUARDO Provider: Naveen Gary MD :1950 A ge:74 Y S ex:Male Date:03/09/2025 Address:[address] [place], [place] [phone] Subjective: * Chief Complaints: * 1 . [...] 0 03/09/2025 Generated for Raffaele lara/Aminta/Nickitting on: 10/23/2024 05:10 PM EST
--- OUTSIDE RECORDS SUMMARY | 2025-03-19 08:30 | XMS_ITS ---
Author Organization Teto Gary MD Address [address] [place], [place] [phone] Care Team Providers Care Cat Operator Name Role Phone Teto Gary Primary Care Provider Allergies Allergen (clinical drug ingredient) Drug/Non Drug Allergy documented on EMR Reaction Allergy Type Onset Date Status diphenhydramine Benadryl Unknown Drug Allergy A ctive REASON FOR VISIT 6 month Medications Medication SIG (Take, Route, Frequency, Duration) Notes Start Date End Date Status Tamsulosin HCl 0.4 MG TAKE 1 CAPSULE BY MOUTH EVERY DAY for 90 Active Losartan Potassium 25 MG TAKE 1 TABLET B Y MOUTH EVERY DAY FOR 90 DAYS for 90 Active Rosuvastatin Calcium 40 MG TAKE 1 TABLET BY MOUTH EVERY DAY Active amLODIPine Besylate 10 MG TAKE 1 TABLET BY MOUTH EVERY DAY Active Warfarin Sodium 5 MG TAKE 2 TABLETS ON WEDNESDAY, WEDNESDAY, WEDNESDAY, TAKE 2.5 TABLETS ON OTHER DAYS ORALLY ONCE A DAY 90 DAYS Active Metoprolol Succinate ER 50 MG take 1 tablet by mouth daily Orally Once a day Active Sildenafil Citrate 100 MG 1 tablet as ne eded Orally Once a day for 30 day(s) 05/01/2019 Active Levothyroxine Sodium 150 MCG TAKE 1 TABL ET BY MOUTH EVERY MORNING ON AN EMPTY STOMACH ORALLY ONCE A DAY 90 DAYS for 90 Active Vital Signs Blood pressure systolic 128 mm Hg 03/19/20 25 Blood pressure diastolic 70 mm Hg 025 Height 71.5 in 03/19/2025 Weight 257 lbs 03/19/2025 BMI 35.34 kg/m2 03/19/2025 weight is down 9 pounds [facility] e 11-13-24 Encounters Encounter Location Date Provider Diagnosis Teot Gary MD [address] [place] [address] [place] [phone] 03/19/2025 Teto Gary Bilateral carotid ar jacque disease I77.9 ; Pure hypercholesterolemia E78.00 and Leg pain M79.606 Assessments Encounter Date Diagnosis (ICD Code) Assessment Notes Treatment Notes Treatment Clinical Notes Section Notes 03/19/2025 Bilateral carotid ar jacque disease (ICD-10 - I77.9) don't want to stop the statin if possible due to the carotid disease 03/19/2025 Pure hypercholesterolemia (ICD-10 - E78.00) has good numbers, will continue current regiment 03/19/2025 Leg pain (ICD-10 - M79.606) is going to try walking and see if it gets better. if not will try stopping his statins and see if that is the cause Plan Of Treatment Treatment Notes Assessment Notes Bilateral carotid artery disease don't w ant to stop the statin if possible due to the carotid disease Pure hypercholesterolemia has good numbe rs, will continue current regiment Leg pain is going to try walk ing and see if it gets better. if not will try stopping his statins and see if that is the cause Next Appt Details Provider Name:Teto kaye, 09/13/2025 07:30:00 AM, [address] [place] [address], [place] [address], [place], [place], [phone], Provider Name:Teto kaye, 09/20/2025 01:00:00 PM, [address] [place] [address], [place] [address], [place], [place], [phone], Progress Notes * LAVERN LIVINGSTON RDOB:1950 (74 yo M)Acc No.[id number]:03/19/2025 Progress Notes Patient: LAVERN EDUARDO Provider: Naveen Gary MD :1950 A ge:74 Y S ex:Male Date:03/19/2025 Address:[address] [place] [address] [place], [id number] Subjective: * Chief Complaints: * 6 month * HPI: S ymptom(s): patient is a 74 yo male here for 6 month follow up visit. * ROS: G eneral/Constitutional: Denies C hills. D enies F atigue. D enies F ever. D enies H eadache. E NT: Denies S ore throat. R espiratory: Denies C ough. D enies S hortness of breath at rest. D enies S hortness of breath with exertion. G astrointestinal: Denies D iarrhea. D enies N ausea. b oth legs hurt from the hips down to his feet. * Medical History: * Surgical History: * Hospitalization/Major Diagno stic Procedure: * Medications: T akingSildenafil Citrate 100 MG Tablet 1 tablet as needed Orally Once a day Metoprolol Succinate ER [...] TAKE 1 CAPSULE BY MOUTH EVERY DAY Losartan Potassium 25 MG Tablet TAKE 1 TABLET BY MOUTH EVERY DAY FOR 90 DAYS Levothyroxine Sodium 150 MCG Tablet TAKE 1 TABLET BY MOUTH EVERY MORNING ON AN EMPTY STOMACH ORALLY ONCE A DAY 90 DAYS Medication List reviewed and reconciled with the patientTaking Sildenafil Citrate 100 MG Tablet 1 tablet as needed Orally Once a day Taking Metoprolol Succinate ER 50 MG Tablet Extended Release 24 Hour take 1 tablet by mouth daily Orally Once a day Taking Warfarin Sodium [...] 1 CAPSULE BY MOUTH EVERY DAY Taking Losartan Potassium 25 MG Tablet TAKE 1 TABLET BY MOUTH EVERY DAY FOR 90 DAYS Taking Levothyroxine Sodium 150 MCG Tablet TAKE 1 TABLET BY MOUTH EVERY MORNING ON AN EMPTY STOMACH ORALLY ONCE A DAY 90 DAYS Medication List reviewed and reconciled with the patient * Allergies: B enadryl: Allergyyes[Allergies Verified] Objective: * Vitals: H t: 71.5, Wt: 257, BMI:35.34, BP:128/70, Wt-k.57. weight is down 9 pounds since 11-13-24. * P ast Orders: L ab:Liver Panel (Order Date - 03/09/2025) (Collection Date & Time - 03/09/2025 07:15 AM) Value Reference Range Bilirubin Total 0.8 0.0-1.0 - mg/dL Bilirubin Direct 0.3 0.0-0.5 - mg/dL Aspartate Amino Transferase 27 5-37 - U/L Alanine Aminotransferase 19 0-40 - U/L Total Protein 7.1 6.5-8.0 - g/dL Albumin Level 4.1 3.5-5.0 - g/dL Alkaline Phosphatase 66 39-117 - U/L L ab:Lipid Panel with Reflex (Order Date - 03/09/2025) (Collection Date & Time - 03/09/2025 07:15 AM) Value Reference Range Triglycerides 79 <150 - mg/dL Cholesterol 177 <200 - mg/dL LDL Cholesterol Calculated 85 <100 - mg/dL HDL Cholesterol 77 >40 - mg/dL * Examination: G eneral Examination: GENERAL APPEARANCE: a lert, well hydrated, in no distress.? HEAD: n ormocephalic. SKIN: g ood turgor. HEART: r egular rate and rhythm with a loud click. LUNGS: n o wheezes, rales, rhonchi, good air movement, clear to auscultation bilaterally. Assessment: * Assessment: 1. B ilateral carotid artery disease - I77.9 (Primary) 2 . P ure hypercholesterolemia - E78.00 3 . L eg pain - M79.606 Plan: * Treatment: 2. P ure hypercholesterolemia Notes: has good numbers, will continue current regiment 3. L eg pain Notes: is going to try walking and see if it gets better. if not will try stopping his statins and see if that is the cause * Procedure Codes: * * Sign off status: Completed true * Provider: Naveen Gary MD Date: 0 03/19/2025 Generated for Raffaele lara/Aminta/Aaronransmitting on: 1 10/23/2024 05:11 PM EST History and Physical Notes * HPI (History of Present Illness) Category Sub-Category Detail Notes Category Not es Symptom(s) patient is a 74 yo male here for 6 month follow up visit Examination Category Sub-Category Detail Notes Category Not es General Examination GENERAL APPEARANCE: alert, w ell hydrated, in no distress HEAD: normocephalic HEART: regular rate and rhy thm with a loud click LUNGS: no wheezes, rales, r honchi, good air movement, clear to auscultation bilaterally SKIN: good turgor
--- OUTSIDE RECORDS SUMMARY | 2025-07-05 05:26 | XMS_ITS ---
Author Organization Teto Gary MD Address [address] [place] [phone] Care Team Providers Care Vascular Sonographer Name Role Phone Cookie Teto Primary Care Provider REASON FOR VISIT ER Visit Encounters Encounter Location Date Provider Diagnosis Teto Gary MD [address] [facility] [address] [place] [id number] 07/05/2025 Teto Gary Plan Of Treatment Next Appt Details Provider Name:Teto Sky ier, 09/13/2025 07:30:00 AM, [address] [place] [address], [address] [place] [address], [phone], Provider Name:Teto Sky ier, 09/20/2025 01:00:00 PM, [address] [place] [address], [place] [address], [place], [place], [phone], Progress Notes * LAVERN LIVINGSTON RDOB:1950 (74 yo M)Acc No.[id number]:07/05/2025 Patient: LAVERN EDUARDO :1950 A ge:74 Y S ex:Male Address:[address] [place] [address], [phone] * true * Date: Generated for Raffaele lara/Aminta/Yasmine on: 10/23/2024 05:10 PM EST
--- OUTSIDE RECORDS SUMMARY | 2025-07-30 04:15 | XMS_ITS ---
Author Organization Teto Gary MD Address [address] [place], [place] [phone] Care Team Providers Care Hotel Lobby Concierge Name Role Phone Cookie Teto Primary Care Provider [phone] Allergies Allergen (clinical drug ingredient) Drug/Non Drug [...] kg/m2 07/30/2025 weight is down 2 pounds [facility] 03-19-25 Encounters Encounter Location Date Provider Diagnosis Teto Gary MD [address] [place] [address] [address] [place], [place] [phone] 07/30/2025 Teto Gary Leg pain, left M79.605 Assessments Encounter Date Diagnosis (ICD Code) Assessment Notes Treatment Notes Treatment Clinical Notes Section Notes 07/30/2025 Leg pain, left (ICD-10 - M79.605) not clear if all the pain is in the kinee and possibly related to spine. will refer to ortho and see if that works and if not to PSSP/ referral to [facility] Plan Of Treatment Treatment Notes Assessment Notes Leg pain, left not clear if all the pain is in the kinee and possibly related to spine. will refer to ortho and see if that works and if not to PSSP/ referral to [facility] Referrals Referral Date Details 07/30/2025 07/30/2025, left leg pain, CLAUDIA DEE Next Appt Details Provider Name:Teto kaye, 09/13/2025 07:30:00 AM, [address] [place] [address], [address], [place], [place], [phone], Provider Name:Teto kaye, 09/20/2025 01:00:00 PM, [address] [place] [address], [address], [place], [place], [phone], Progress Notes * LAVERN LIVINGSTON RDOB:1950 (74 yo M)Acc No.[id number]:07/30/2025 Progress Notes Patient: LAVERN EDUARDO Provider: Naveen Gary MD :1950 A ge:74 Y S ex:Male Date:07/30/2025 Address:[address] [place] [address], [facility] Subjective: * Chief Complaints: * K nee [...] MD Date: Generated for Raffaele lara/Aminta/Nickitting on: 10/23/2024 05:11 PM EST History and Physical [...]
--- OUTSIDE RECORDS SUMMARY | 2025-08-06 09:14 | XMS_ITS ---
Author Organization Teto Gary MD Address [address] [place] [phone] Care Team Providers Care Manufacturing Plant Controller Name Role Phone Cookie Teto Primary Care Provider REASON FOR VISIT Low INR Encounters Encounter Location Date Provider Diagnosis Teto Gary MD 10 [facility] [address] [place] [phone] 08/06/2025 Teto Gary Plan Of Treatment Next Appt Details Provider Name:Teto Sky ier, 09/13/2025 07:30:00 AM, [address] [place] [address], [address] [place] [address], [phone], Provider Name:Teto Sky ier, 09/20/2025 01:00:00 PM, [address] [place] [address], [place] [address], [place], [place], [phone], Progress Notes * LAVERN LIVINGSTON RDOB:1950 (74 yo M)Acc No.[id number]:08/06/2025 Patient: LAVERN EDUARDO :1950 A ge:74 Y S ex:Male Address:[address] [place] [address], [address] * true * Date: Generated for Raffaele lara/Aminta/Yasmine on: 10/23/2024 05:10 PM EST
--- OUTSIDE RECORDS SUMMARY | 2025-08-23 17:10 | XMS_ITS | Clinical Summary ---
Author Organization [facility] Address [address] [facility] [address] [place] [address] Phone Care Team Providers Care Nnps Name Role Phone Teto Gary MD Primary [...] this topic Insurance [employer] MCR Adv PPO ([id number]) [employer] MCR Adv PPO ([id number]) Care Teams Nnps Relationship Specialty Start Date End Date Teto Gary MD [address] [place] [address] [id number] [place], [place] PCP - General 10/21/20
--- OUTSIDE RECORDS SUMMARY | 2025-08-23 17:11 | XMS_ITS | Patient Health Record ---
Author Organization Teto Gary MD Address [address] [place], [place] [id number] Care Team Providers Care Shower Room Attendant Name Role Phone Teto Gary Primary Care Provider Allergies Allergen (clinical drug ingredient) Drug/Non Drug Allergy documented on EMR Reaction Allergy Type Onset Date Status diphenhydramine Benadryl Unknown Drug Allergy A ctive Results Component Value Reference Range Notes Liver Panel Reviewed date:03/09/2025 04:17:25 PM Interpretation: Performing Lab:[address] [phone] Notes/Report: Bilirubin Total 0.8 0.0-1.0 mg/dL Bilirubin Direct 0.3 0.0-0.5 mg/dL Aspartate Amino Transferase 27 5-37 U/L Alanine Aminotransferase 19 0-40 U/L Total Protein 7.1 6.5-8.0 g/dL Albumin Level 4.1 3.5-5.0 g/dL Alkaline Phosphatase 66 39-117 U/L Lipid Panel with Reflex Reviewed date:03/09/2025 04:17:09 PM Interpretation: Performing Lab:[address] [place] [address] Notes/Report: Triglycerides 79 <150 mg/dL Desirable Triglyceride: [...] POC Reviewed date:09/18/2024 12:40:45 PM Interpretation: Performing Lab:[facility], [address] [place] [phone] Notes/Report: PT, INR - [facility] 2.0 0.9-1.1 METER #: [id number] INTERNATIONAL NORMALIZED RATIO (INR) REFERENCE RANGES Reference [...] OC Reviewed date:09/18/2024 12:44:30 PM Interpretation: Performing Lab:[facility], [address] [place] [phone] Notes/Report: Prothrombin Time Whole Bld POC 23.9 11.1-13.5 sec INR WHOLE BLOOD POC Reviewed date:10/16/2024 09:52:45 AM Interpretation: Performing Lab:[facility], [address] [place] [phone] Notes/Report: PT, INR - [facility] 3.6 0.9-1.1 METER #: [id number] INTERNATIONAL NORMALIZED RATIO (INR) REFERENCE RANGES Reference [...] OC Reviewed date:10/16/2024 09:52:53 AM Interpretation: Performing Lab:[facility], [address] [place] [phone] Notes/Report: Prothrombin Time Whole Bld POC 43.8 11.1-13.5 sec INR WHOLE BLOOD POC Reviewed date:11/07/2024 04:28:35 PM Interpretation: Performing Lab:[facility], [address] [place] [phone] Notes/Report: PT, INR - [facility] 4.4 0.9-1.1 METER #: [id number] INTERNATIONAL NORMALIZED RATIO (INR) REFERENCE RANGES Reference [...] OC Reviewed date:11/07/2024 04:28:26 PM Interpretation: Performing Lab:[facility], [address] [place] [phone] Notes/Report: Prothrombin Time Whole Bld POC 52.3 11.1-13.5 sec INR WHOLE BLOOD POC Reviewed date:11/22/2024 05:40:44 PM Interpretation: Performing Lab:[facility], [address] [place] [phone] Notes/Report: PT, INR - [facility] 1.5 0.9-1.1 METER #: [id number] Doctor Notified INTERNATIONAL NORMALIZED RATIO (INR) REFERENCE [...] OC Reviewed date:11/22/2024 05:40:26 PM Interpretation: Performing Lab:[address] [address] Notes/Report: Prothrombin Time Whole Bld POC 17.8 11.1-13.5 sec INR WHOLE BLOOD POC Reviewed date:11/24/2024 12:39:31 PM Interpretation: Performing Lab:[facility], [address] [place] [phone] Notes/Report: PT, INR - [facility] 2.6 0.9-1.1 METER #: [id number] INTERNATIONAL NORMALIZED RATIO (INR) REFERENCE RANGES Reference [...] OC Reviewed date:11/24/2024 12:35:01 PM Interpretation: Performing Lab:[address] [address] Notes/Report: Prothrombin Time Whole Bld POC 30.8 11.1-13.5 sec INR WHOLE BLOOD POC Reviewed date:12/11/2024 11:04:14 AM Interpretation: Performing Lab:[address] [phone] Notes/Report: PT, INR - [facility] 3.2 0.9-1.1 METER #: [id number] INTERNATIONAL NORMALIZED RATIO (INR) REFERENCE RANGES Reference [...] OC Reviewed date:12/11/2024 12:37:20 PM Interpretation: Performing Lab:[facility], [address] [place] [phone] Notes/Report: Prothrombin Time Whole Bld POC 38.2 11.1-13.5 sec INR WHOLE BLOOD POC Reviewed date:01/01/2025 12:32:57 PM Interpretation: Performing Lab:[facility], [address] [place] [phone] Notes/Report: PT, INR - [facility] 4.6 0.9-1.1 METER #: [id number] INTERNATIONAL NORMALIZED RATIO (INR) REFERENCE RANGES Reference [...] OC Reviewed date:01/01/2025 12:33:05 PM Interpretation: Performing Lab:[facility], [address] [place] [phone] Notes/Report: Prothrombin Time Whole Bld POC 54.9 11.1-13.5 sec INR WHOLE BLOOD POC Reviewed date:01/08/2025 12:19:34 PM Interpretation: Performing Lab:[facility], [address] [place] [phone] Notes/Report: PT, INR - [facility] 1.4 0.9-1.1 METER #: [id number] INTERNATIONAL NORMALIZED RATIO (INR) REFERENCE RANGES Reference [...] OC Reviewed date:01/08/2025 12:19:26 PM Interpretation: Performing Lab:[facility], [address] [place] [phone] Notes/Report: Prothrombin Time Whole Bld POC 16.7 11.1-13.5 sec INR WHOLE BLOOD POC Reviewed date:01/15/2025 08:45:45 AM Interpretation: Performing Lab:[facility], [address] [place] [phone] Notes/Report: PT, INR - [facility] 2.0 0.9-1.1 METER #: [id number] INTERNATIONAL NORMALIZED RATIO (INR) REFERENCE RANGES Reference [...] OC Reviewed date:01/15/2025 08:45:37 AM Interpretation: Performing Lab:[facility], [address] [place] [phone] Notes/Report: Prothrombin Time Whole Bld POC 23.9 11.1-13.5 sec INR WHOLE BLOOD POC Reviewed date:02/07/2025 04:59:10 PM Interpretation: Performing Lab:[facility], [address] [place] [phone] Notes/Report: PT, INR - [facility] 3.1 0.9-1.1 METER #: [id number] INTERNATIONAL NORMALIZED RATIO (INR) REFERENCE RANGES Reference [...] OC Reviewed date:02/07/2025 04:59:01 PM Interpretation: Performing Lab:[facility], [address] [place] [phone] Notes/Report: Prothrombin Time Whole Bld POC 37.7 11.1-13.5 sec INR WHOLE BLOOD POC Reviewed date:02/19/2025 12:25:05 PM Interpretation: Performing Lab:[facility], [address] [place] [phone] Notes/Report: PT, INR - [facility] 2.9 0.9-1.1 METER #: [id number] INTERNATIONAL NORMALIZED RATIO (INR) REFERENCE RANGES Reference [...] OC Reviewed date:02/19/2025 12:25:12 PM Interpretation: Performing Lab:[facility], [address] [place] [phone] Notes/Report: Prothrombin Time Whole Bld POC 34.3 11.1-13.5 sec Hold Gold Reviewed date:03/09/2025 04:15:47 PM Interpretation: Performing Lab:[address] [phone] Notes/Report: Hold Gold See Note Specimen held untested for 24 hours; Call to request Chemistry testing. INR WHOLE BLOOD POC Reviewed date:03/12/2025 08:52:01 AM Interpretation: Performing Lab:[facility], [address] [place] [phone] Notes/Report: PT, INR - [facility] 2.3 0.9-1.1 METER #: [id number] INTERNATIONAL NORMALIZED RATIO (INR) REFERENCE RANGES Reference [...] OC Reviewed date:03/12/2025 08:51:47 AM Interpretation: Performing Lab:[facility], [address] [place] [phone] Notes/Report: Prothrombin Time Whole Bld POC 27.8 11.1-13.5 sec INR WHOLE BLOOD POC Reviewed date:04/02/2025 12:25:58 PM Interpretation: Performing Lab:[facility], [address] [place] [phone] Notes/Report: PT, INR - [facility] 4.4 0.9-1.1 METER #: [id number] INTERNATIONAL NORMALIZED RATIO (INR) REFERENCE RANGES Reference [...] OC Reviewed date:04/02/2025 12:26:06 PM Interpretation: Performing Lab:[facility], [address] [place] [phone] Notes/Report: Prothrombin Time Whole Bld POC 52.3 11.1-13.5 sec INR WHOLE BLOOD POC Reviewed date:04/09/2025 01:00:49 PM Interpretation: Performing Lab:[facility], [address] [place] [phone] Notes/Report: PT, INR - [facility] 2.0 0.9-1.1 METER #: [id number] INTERNATIONAL NORMALIZED RATIO (INR) REFERENCE RANGES Reference [...] OC Reviewed date:04/09/2025 11:54:02 AM Interpretation: Performing Lab:[facility], [address] [place] [phone] Notes/Report: Prothrombin Time Whole Bld POC 24.2 11.1-13.5 sec INR WHOLE BLOOD POC Reviewed date:04/16/2025 12:38:18 PM Interpretation: Performing Lab:[facility], [address] [place] [phone] Notes/Report: PT, INR - [facility] 3.0 0.9-1.1 METER #: [id number] INTERNATIONAL NORMALIZED RATIO (INR) REFERENCE RANGES Reference [...] OC Reviewed date:04/16/2025 12:38:10 PM Interpretation: Performing Lab:[facility], [address] [place] [phone] Notes/Report: Prothrombin Time Whole Bld POC 36.0 11.1-13.5 sec INR WHOLE BLOOD POC Reviewed date:05/04/2025 09:07:14 PM Interpretation: Performing Lab:[facility], [address] [place] [phone] Notes/Report: PT, INR - [facility] 3.1 0.9-1.1 METER #: [id number] INTERNATIONAL NORMALIZED RATIO (INR) REFERENCE RANGES Reference [...] OC Reviewed date:05/04/2025 09:06:52 PM Interpretation: Performing Lab:[facility], [address] [place] [phone] Notes/Report: Prothrombin Time Whole Bld POC 36.9 11.1-13.5 sec INR WHOLE BLOOD POC Reviewed date:05/21/2025 11:57:08 AM Interpretation: Performing Lab:[facility], [address] [place] [phone] Notes/Report: PT, INR - [facility] 4.5 0.9-1.1 METER #: [id number] INTERNATIONAL NORMALIZED RATIO (INR) REFERENCE RANGES Reference [...] OC Reviewed date:05/21/2025 11:57:15 AM Interpretation: Performing Lab:[facility], [address] [place] [phone] Notes/Report: Prothrombin Time Whole Bld POC 53.7 11.1-13.5 sec INR WHOLE BLOOD POC Reviewed date:05/28/2025 11:14:53 AM Interpretation: Performing Lab:[facility], [address] [place] [phone] Notes/Report: PT, INR - [facility] 3.0 0.9-1.1 METER #: [id number] INTERNATIONAL NORMALIZED RATIO (INR) REFERENCE RANGES Reference [...] OC Reviewed date:05/28/2025 08:28:36 AM Interpretation: Performing Lab:[facility], [address] [place] [phone] Notes/Report: Prothrombin Time Whole Bld POC 36.1 11.1-13.5 sec INR WHOLE BLOOD POC Reviewed date:06/15/2025 02:49:16 PM Interpretation: Performing Lab:[facility], [address] [place] [phone] Notes/Report: PT, INR - [facility] 1.5 0.9-1.1 METER #: [id number] Doctor Notified INTERNATIONAL NORMALIZED RATIO (INR) REFERENCE [...] OC Reviewed date:06/15/2025 02:49:09 PM Interpretation: Performing Lab:[facility], [address] [place] [phone] Notes/Report: Prothrombin Time Whole Bld POC 17.5 11.1-13.5 sec INR WHOLE BLOOD POC Reviewed date:06/20/2025 05:56:33 PM Interpretation: Performing Lab:[address] [phone] Notes/Report: PT, INR - [facility] 2.5 0.9-1.1 METER #: [id number] INTERNATIONAL NORMALIZED RATIO (INR) REFERENCE RANGES Reference [...] OC Reviewed date:06/20/2025 05:56:42 PM Interpretation: Performing Lab:[facility], [address] [place] [phone] Notes/Report: Prothrombin Time Whole Bld POC 29.4 11.1-13.5 sec INR WHOLE BLOOD POC Reviewed date:07/09/2025 12:47:32 PM Interpretation: Performing Lab:[facility], [address] [place] [phone] Notes/Report: PT, INR - [facility] 3.7 0.9-1.1 METER #: [id number] INTERNATIONAL NORMALIZED RATIO (INR) REFERENCE RANGES Reference [...] OC Reviewed date:07/09/2025 12:47:39 PM Interpretation: Performing Lab:[facility], [address] [place] [phone] Notes/Report: Prothrombin Time Whole Bld POC 43.9 11.1-13.5 sec INR WHOLE BLOOD POC Reviewed date:07/24/2025 05:01:48 PM Interpretation: Performing Lab:[facility], [address] [place] [phone] Notes/Report: PT, INR - [facility] 1.8 0.9-1.1 METER #: [id number] INTERNATIONAL NORMALIZED RATIO (INR) REFERENCE RANGES Reference [...] OC Reviewed date:07/24/2025 05:01:57 PM Interpretation: Performing Lab:[facility], [address] [place] [phone] Notes/Report: Prothrombin Time Whole Bld POC 21.1 11.1-13.5 sec INR WHOLE BLOOD POC Reviewed date:08/06/2025 12:32:56 PM Interpretation: Performing Lab:[facility], [address] [place] [phone] Notes/Report: PT, INR - [facility] 1.6 0.9-1.1 METER #: [id number] INTERNATIONAL NORMALIZED RATIO (INR) REFERENCE RANGES Reference [...] OC Reviewed date:08/06/2025 12:32:48 PM Interpretation: Performing Lab:[facility], [address] [place] [phone] Notes/Report: Prothrombin Time Whole Bld POC 18.8 11.1-13.5 sec INR WHOLE BLOOD POC Reviewed date:08/10/2025 04:26:39 PM Interpretation: Performing Lab:[facility], [address] [place] [phone] Notes/Report: PT, INR - [facility] 3.7 0.9-1.1 METER #: [id number] INTERNATIONAL NORMALIZED RATIO (INR) REFERENCE RANGES Reference [...] OC Reviewed date:08/10/2025 04:23:52 PM Interpretation: Performing Lab:[address] [address] Notes/Report: Prothrombin Time Whole Bld POC 44.3 11.1-13.5 sec INR WHOLE BLOOD POC Reviewed date:08/20/2025 12:46:30 PM Interpretation: Performing Lab:[address] [address] Notes/Report: PT, INR - [facility] 2.1 0.9-1.1 METER #: [id number] INTERNATIONAL NORMALIZED RATIO (INR) REFERENCE RANGES Reference [...] Prothrombin Time Whole Bld P OC Reviewed date:08/20/2025 12:45:08 PM Interpretation: Performing Lab:[address] [address] Notes/Report: Prothrombin Time Whole Bld POC 25.5 11.1-13.5 sec Reason For Referral Reason left [...] Problem Status W/U Status Risk Notes Problem 97036667 Prostatism (N40.0) Active confirmed Problem 75054262 Essential (prima ry) hypertension (I10) Active confirmed Problem 244179322874953 Erectile dysfunc tion due to arterial insufficiency (N52.01) Active confirmed Problem 5095559 Psoriasis (L40.9) Active confirmed Problem 813359366 Acquired hypothyroidism (E03.9) Active confirmed Problem 561978351 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) Active confirmed Problem 12518261 Alcohol abuse (F10.10) Active confirme d Problem 76110469 Heart murmur (R01.1) Active confirmed Problem 52144180 RBBB (I45.10) Active confirmed Problem 241782788 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) Active confirmed Problem 04203570 Chronic renal fa ilure, stage 3 (moderate) (N18.3) Active confirmed Problem 682863945 Pure hypercholesterolemia (E78.00) Active confirmed Problem 685303260 Other cardiac arrhythmia (I49.8) Active confirmed Problem 89401363774693 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) Active confirmed Problem 1854782075400151 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) Active confirmed Problem 022024312 Age-related inci pient cataract of both eyes (H25.093) Active confirmed Problem 905073411 Chronic kidney d isease (CKD) stage G1/A2, [...] Teto Gary MD [address] [place] [id number] 03/09/2025 Teto Gary Pure hypercholestero lemia E78.00 Teto Gary MD [address] [place] [id number] 09/15/2024 Teto Gary Left inguinal hernia K40.90 ; Annual physical exam Z00.00 ; Mechanical heart valve present Z95.2 ; Essential (primary) hypertension I10 ; Microscopic hematuria R31.29 ; Prostatism N40.0 ; Pure hypercholesterolemia E78.00 ; Acquired hypothyroidism E03.9 ; Colon cancer screening Z12.11 and Depression screening Z13.31 Teto Gary MD [address] [place] [id number] 11/13/2024 Teto Gary Mechanical heart mary ve present Z95.2 ; Mild dementia without behavioral disturbance, psychotic disturbance, mood disturbance, or anxiety, unspecified dementia type F03.A0 and Heme positive stool R19.5 Teto Gary MD [address] [place] [id number] 03/19/2025 Teto Gary Bilateral carotid ar jacque disease I77.9 ; Pure hypercholesterolemia E78.00 and Leg pain M79.606 Teto Gary MD [address] [place] [id number] 07/30/2025 Teto Gary Leg pain, left M79.6 05 Teto Gary MD [address] [place] [id number] 10/27/2024 Teto Gary MD [address] [place] [id number] 01/08/2025 Teto Gary MD [address] [place] [id number] 07/05/2025 Teto Gary MD [address] [place] [id number] 08/06/2025 Teto Gary Assessments Encounter Date Diagnosis [...] and if not to [facility]/ [facility] 09/15/2024 Mechanical heart mary ve present [...] Lizzie Jose Daniel ier, 09/13/2025 07:30:00 AM, [address] [place] [address], [address], [phone], Provider Name:Teto Sky ier, 09/20/2025 01:00:00 PM, [address] [place] [address], [place] [address], [place], [place], [phone], Insurance Providers Payer Name Payer Address Payer Phone Subscriber Number Group Number Insured Name Patient Relationship to Insured Coverage Start Date Coverage End Date [employer]AGE [address] [place], [place] [id number] LAVERN LIVINGSTON Self - patient is the insured [facility] [address] [place] [address] [id number] LAVERN LIVINGSTON Self - patient is the [...]
== END 2025-08-22 13:48 | disposition home or self-care (01) ==
LOC: HO.HOSX 13:47
PROVIDERS: Visit Provider Orthopaedic Surgery
DX: Z13.89 Encounter for screening for other disorder (principal)

== ENCOUNTER 2025-09-03 08:02 | Outpatient (AMB) | payer MEDICARE, MEDICAID, SELFPAY ==
--- OUTSIDE RECORDS SUMMARY | 2024-08-18 03:00 | XMS_ITS ---
Author Organization Teto Gary MD Address [address] [place], [place] [phone] Care Team Providers Care Wire Twister Name Role Phone Teto Gary Primary Care Provider [phone] Results Component Value Reference Range Notes Complete Blood Count Auto Di ff Reviewed date:08/18/2024 12:47:17 PM Interpretation: Performing Lab:[facility], [address] [place] [phone] Notes/Report: White Blood Count 6.2 4.8-10.8 X10*3/uL [...] NRBC Abs Auto 0.000 0.0-0.012 X10*3/uL Comprehensive [place]. Panel Fa st Reviewed date:08/18/2024 01:03:50 PM Interpretation: Performing Lab:[facility], [address] [place] [phone] Notes/Report: Sodium 141 135-145 mmol/L Potassium 3.9 3.3-5.1 mmol/L Chloride 109 96-108 mmol/L Carbon Dioxide 25 22-29 mmol/L Anion Gap 11 12-20 Blood Urea Nitrogen 20 9-16 mg/dL Creatinine 1.31 0.5-1.4 mg/dL Estimated Glomerular Filt Rate 54 NOTE: For -Bahraini individuals, multiply the result by 1.210. Chronic [...] Panel Reviewed date:08/18/2024 12:35:19 PM Interpretation: Performing Lab:[address] [phone] Notes/Report: Triglycerides 84 <150 mg/dL Desirable Triglyceride: [...] (Free>4and<10) Reviewed date:08/18/2024 12:34:12 PM Interpretation: Performing Lab:[address] [phone] Notes/Report: PSA,Total (Free>4and<10) 3.01 0.00-4.00 ng/mL A [...] Reviewed date:09/18/2024 10:17:51 AM Interpretation:ORQUIDEA 09/15 Performing Lab:[address] [place] [address] Notes/Report: Urine, Clean Catch Color Urine Yellow Appearance Urine Clear PH 6.0 5.0-9.0 Glucose Urine UA Negative Negative mg/dL Urine Blood Large (3+) Negative Specific [place] - Urine 1.015 1.005-1.025 Urine Protein 300 [...] Location Date Provider Diagnosis Teto Gary MD [address] [place] [address] [place] [phone] 08/18/2024 Teto Gary Blood tests for rout [...] Details Provider Name:Teto kaye, 09/13/2025 07:30:00 AM, [address] [place] [address], [address], [place], [place], [phone], Provider Name:Teto kaye, 09/20/2025 01:00:00 PM, [address] [facility], [address], [place], [place], [phone], Progress Notes * LAVERN LIVINGSTON RDOB:1950 (74 yo M)Acc No.[id number]:08/18/2024 Progress Note Patient: LAVERN EDUARDO Provider: Naveen Gary MD :1950 A ge:73 Y S ex:Male Date:08/18/2024 Address:[address] [place], [place] [phone] Subjective: * Chief Complaints: * 1 . [...] Time - 08/18/2024 08:00 AM) ?LAB: [facility] [place]. Panel Fast (Collection Date & Time - [...] Time - 08/18/2024 08:00 AM) ?LAB: [facility] [place]. Panel Fast (Collection Date & Time - [...] Time - 08/18/2024 08:00 AM) ?LAB: [facility] [place]. Panel Fast (Collection Date & Time - [...] Time - 08/18/2024 08:00 AM) ?LAB: [facility] [place]. Panel Fast (Collection Date & Time - [...] Date: 10/18/2023 Generated for Raffaele lara/Aminta/Yasmine on: 11/03/2024 08:04 AM EST
--- OUTSIDE RECORDS SUMMARY | 2024-09-15 08:45 | XMS_ITS ---
Author Organization Teto Gary MD Address [address] [place], [place] [phone] Care Team Providers Care Traffic Sign Erection Supervisor Name Role Phone Teto Gary Primary Care Provider [phone] Allergies Allergen (clinical drug ingredient) Drug/Non Drug [...] Location Date Provider Diagnosis Teto Gary MD [address] [place] [address] [place] [phone] 09/15/2024 Teto Gary Left inguinal hernia K40.90 [...] Details Provider Name:Teto kaye, 09/13/2025 07:30:00 AM, [address] [place] [address], [address], [place], [place], [phone], Provider Name:Teto Sky ier, 09/20/2025 01:00:00 PM, [address], [address], [place], [phone], Progress Notes * LAVERN LIVINGSTON RDOB:1950 (74 yo M)Acc No.[id number]:09/15/2024 Progress Notes Patient: LAVERN EDUARDO Provider: Naveen Gary MD :1950 A ge:74 Y S ex:Male Date:09/15/2024 Address:[address] [place] [address] [place], [id number] Subjective: * Chief Complaints: * A NNUAL [...] 78 yrs. 1 daughter(s) . . Mother-Emphysema Father-[place] 1 brother 1 sister, Denies mental health/substance [...] Auto 0.000 0.0-0.012 - X10*3/uL L ab:Comprehensive [place]. Panel Fast (Order Date - 08/18/2024) (Collection [...] Date: 11/16/2023 Generated for Raffaele lara/Aminta/eTransmitting on: 11/03/2024 08:04 AM EST History and Physical Notes * HPI [...]
--- OUTSIDE RECORDS SUMMARY | 2024-10-27 05:12 | XMS_ITS ---
Author Organization Teto Gary MD Address [address] [place] [phone] Care Team Providers Care Cheese Production Supervisor Name Role Phone DimitriTeto sauceda Primary Care Provider [phone] REASON FOR VISIT ER Visit rec'd Encounters Encounter Location Date Provider Diagnosis Teto Gary MD 10 [facility] [address] [place] [phone] 10/27/2024 Teto Gary Plan Of Treatment Next Appt Details Provider Name:Teto Sky ier, 09/13/2025 07:30:00 AM, [address] [place] [address], Suite [facility], [place], [place], [phone], Provider Name:Teto kaye, 09/20/2025 01:00:00 PM, [address] [place] [address], [place] [address], [place], [place], [phone], Progress Notes * LAVERN LIVINGSTON RDOB:1950 (74 yo M)Acc No.[id number]:10/27/2024 Patient: LAVERN EDUARDO :1950 A ge:74 Y S ex:Male Address:[address] [place] [address], [address] * true * Date: Generated for Raffaele lara/Aminta/Yasmine on: 11/03/2024 08:05 AM EST
--- OUTSIDE RECORDS SUMMARY | 2024-11-13 06:30 | XMS_ITS ---
Author Organization Teto Gary MD Address [address] [place], [place] [phone] Care Team Providers Care Eating Disorder Psychologist Name Role Phone Teto Gary Primary Care Provider Allergies Allergen (clinical drug ingredient) Drug/Non Drug Allergy documented on EMR Reaction Allergy Type Onset Date Status diphenhydramine Benadryl Unknown Drug Allergy A ctive REASON FOR VISIT was seen [place] [facility] [place], has already seen the surgeon., his will be at this appt wih him-she [...] Date Provider Diagnosis Teto Gary MD [address] [place], [place] [phone] 11/13/2024 Teto Gary Mechanical heart valve present [...] Provider Name:Teto kaye, 09/13/2025 07:30:00 AM, [address], [address], [place], [place], [phone], Provider Name:Teto kaye, 09/20/2025 01:00:00 PM, [address], [address], [place], [place], [phone], Progress Notes * LAVERN LIVINGSTON RDOB:1950 (74 yo M)Acc No.[id number]:11/13/2024 Progress Notes Patient: LAVERN EDUARDO Provider: Naveen Gary MD :1950 A ge:74 Y S ex:Male Date:11/13/2024 Address:[address] [place] [address] [place], [id number] Subjective: * Chief Complaints: * w as seen at [facility] for [place], has already seen the [...] concerned that he is not seeing a sock knitter at present. memory has been bad for [...] 0 11/13/2024 Generated for Raffaele lara/Aminta/Yasmine on: 11/03/2024 08:05 AM EST History and Physical Notes * [...] concerned that he is not seeing a sock knitter at present. memory has been bad for [...]
--- OUTSIDE RECORDS SUMMARY | 2025-01-08 04:45 | XMS_ITS ---
Author Organization Teto Gary MD Address [address] [place] [phone] Care Team Providers Care Reception Specialist Name Role Phone CookieZacn Primary Care Provider [phone] REASON FOR VISIT FYI INR results Encounters Encounter Location Date Provider Diagnosis Teto Gary MD 10 [facility] [address] [place] [phone] 01/08/2025 Teto Gary Plan Of Treatment Next Appt Details Provider Name:Teto Sky ier, 09/13/2025 07:30:00 AM, [address] [place] [address], Suite [facility], [place], [place], [phone], Provider Name:Teto Sky ier, 09/20/2025 01:00:00 PM, [address] [place] [address], [place] [address], [place], [place], [phone], Progress Notes * LAVERN LIVINGSTON RDOB:1950 (74 yo M)Acc No.[id number]:01/08/2025 Patient: LAVERN EDUARDO :1950 A ge:74 Y S ex:Male Address:[address] [place] [address], [address] * true * Date: Generated for Raffaele lara/Aminta/Yasmine on: 11/03/2024 08:04 AM EST
--- OUTSIDE RECORDS SUMMARY | 2025-03-09 02:15 | XMS_ITS ---
Author Organization Teto Gary MD Address [address] [place], [place] [phone] Care Team Providers Care V Belt Curer Name Role Phone Teto Gary Primary Care Provider Results Component Value Reference Range Notes Liver Panel Reviewed date:03/09/2025 04:17:25 PM Interpretation: Performing Lab:[facility], [address] [place] [phone] Notes/Report: Bilirubin Total 0.8 0.0-1.0 mg/dL Bilirubin Direct 0.3 0.0-0.5 mg/dL Aspartate Amino Transferase 27 5-37 U/L Alanine Aminotransferase 19 0-40 U/L Total Protein 7.1 6.5-8.0 g/dL Albumin Level 4.1 3.5-5.0 g/dL Alkaline Phosphatase 66 39-117 U/L Lipid Panel with Reflex Reviewed date:03/09/2025 04:17:09 PM Interpretation: Performing Lab:[facility], [address] [place] [phone] Notes/Report: Triglycerides 79 <150 mg/dL Desirable Triglyceride: [...] Location Date Provider Diagnosis Teto Gary MD [address] [place] [address] [place] [phone] 03/09/2025 Teto Gary Pure hypercholestero lemia E78.00 Assessments Encounter Date Diagnosis (ICD Code) Assessment Notes Treatment Notes Treatment Clinical Notes Section Notes 03/09/2025 Pure hypercholesterolemia (ICD-10 - E78.00) Plan Of Treatment Next Appt Details Provider Name:Teto Sky ier, 09/13/2025 07:30:00 AM, [address] [place] [address], Suite [facility], [place], [place], [phone], Provider Name:Teto Faithdebra ier, 09/20/2025 01:00:00 PM, [address] [place] [address], [place] [address], [place], [place], [phone], Progress Notes * LAVERN LIVINGSTON RDOB:1950 (74 yo M)Acc No.[id number]:03/09/2025 Progress Note Patient: LAVERN EDUARDO Provider: Naveen Gary MD :1950 A ge:74 Y S ex:Male Date:03/09/2025 Address:[address] [place], [place] [phone] Subjective: * Chief Complaints: * 1 . [...] 0 03/09/2025 Generated for Raffaele lara/Aminta/Nickitting on: 11/03/2024 08:03 AM EST
--- OUTSIDE RECORDS SUMMARY | 2025-03-19 08:30 | XMS_ITS ---
Author Organization Teto Gary MD Address [address] [place], [place] [phone] Care Team Providers Care Scrap Carrier Name Role Phone Teto Gary Primary Care [...] kg/m2 03/19/2025 weight is down 9 pounds [facility] e 11-13-24 Encounters Encounter Location Date Provider Diagnosis Teto Gary MD [address] [place] [address] [place] [phone] 03/19/2025 Teto Gary Bilateral carotid ar jacque [...] Details Provider Name:Teto kaye, 09/13/2025 07:30:00 AM, [address] [place] [address], [place] [address], [place], [place], [phone], Provider Name:Teto kaye, 09/20/2025 01:00:00 PM, [address] [place] [address], [place] [address], [place], [place], [phone], Progress Notes * LAVERN LIVINGSTON RDOB:1950 (74 yo M)Acc No.[id number]:03/19/2025 Progress Notes Patient: LAVERN EDUARDO Provider: Naveen Gary MD :1950 A ge:74 Y S ex:Male Date:03/19/2025 Address:[address] [place] [address] [place], [id number] Subjective: * Chief Complaints: * 6 month [...] MD Date: 0 03/19/2025 Generated for Raffaele lara/Aminta/eTransmitting on: 11/03/2024 08:05 AM EST History and [...]
--- OUTSIDE RECORDS SUMMARY | 2025-07-05 05:26 | XMS_ITS ---
Author Organization Teto Gary MD Address [address] [place] [phone] Care Team Providers Care Scrap Iron Cutter Name Role Phone Cookie Teto Primary Care Provider REASON FOR VISIT ER Visit Encounters Encounter Location Date Provider Diagnosis Teto Gary MD [facility] [address] [place] [phone] 07/05/2025 Teto Gary Plan Of Treatment Next Appt Details Provider Name:Teto Sky ier, 09/13/2025 07:30:00 AM, [address] [place] [address], [address] [place] [address], [phone], Provider Name:Teto Sky ier, 09/20/2025 01:00:00 PM, [address] [place] [address], [place] [address], [place], [place], [phone], Progress Notes * LAVERN LIVINGSTON RDOB:1950 (74 yo M)Acc No.[id number]:07/05/2025 Patient: LAVERN EDUARDO :1950 A ge:74 Y S ex:Male Address:[address] [place] [address], [address] * true * Date: Generated for Raffaele lara/Aminta/Yasmine on: 11/03/2024 08:04 AM EST
--- OUTSIDE RECORDS SUMMARY | 2025-07-30 04:15 | XMS_ITS ---
Author Organization Teto Gary MD Address [address] [place], [place] [phone] Care Team Providers Care Shank Boner Name Role Phone Cookie Teto Primary Care Provider [phone] Allergies Allergen (clinical drug ingredient) Drug/Non Drug [...] kg/m2 07/30/2025 weight is down 2 pounds [facility] 03-19-25 Encounters Encounter Location Date Provider Diagnosis Teto Gary MD [address] [place] [address] [address] [place], [place] [phone] 07/30/2025 Teto Gary Leg pain, left M79.605 Assessments Encounter Date Diagnosis (ICD Code) Assessment Notes Treatment Notes Treatment Clinical Notes Section Notes 07/30/2025 Leg pain, left (ICD-10 - M79.605) not clear if all the pain is in the kinee and possibly related to spine. will refer to ortho and see if that works and if not to PSSP/ [place] [facility] Plan Of Treatment Treatment Notes Assessment Notes Leg pain, left not clear if all the pain is in the kinee and possibly related to spine. will refer to ortho and see if that works and if not to PSSP/ [place] [facility] Referrals Referral Date Details 07/30/2025 07/30/2025, left leg pain, CLAUDIA DEE Next Appt Details Provider Name:Teto kaye, 09/13/2025 07:30:00 AM, [address] [place] [address], [address], [place], [place], [phone], Provider Name:Teto kaye, 09/20/2025 01:00:00 PM, [address] [place] [address], [address], [place], [place], [phone], Progress Notes * LAVERN LIVINGSTON RDOB:1950 (74 yo M)Acc No.[id number]:07/30/2025 Progress Notes Patient: LAVERN EDUARDO Provider: Naveen Gary MD :1950 A ge:74 Y S ex:Male Date:07/30/2025 Address:[address] [place] [address], [facility] Subjective: * Chief Complaints: * K nee [...] MD Date: Generated for Raffaele lara/Aminta/Nickitting on: 11/03/2024 08:05 AM EST History and [...]
--- OUTSIDE RECORDS SUMMARY | 2025-08-06 09:14 | XMS_ITS ---
Author Organization Teto Gary MD Address [address] [place] [phone] Care Team Providers Care Talking Books Library Clerk Name Role Phone Cookie Teto Primary Care Provider [phone] REASON FOR VISIT Low INR Encounters Encounter Location Date Provider Diagnosis Teto Gary MD 10 [facility] [address] [place] [phone] 08/06/2025 Teto Gary Plan Of Treatment Next Appt Details Provider Name:Teto Sky ier, 09/13/2025 07:30:00 AM, [address] [place] [address], [address] [place] [phone], Provider Name:Teto Sky ier, 09/20/2025 01:00:00 PM, [address] [place] [address], [place] [address], [place], [place], [phone], Progress Notes * LAVERN LIVINGSTON RDOB:1950 (74 yo M)Acc No.[id number]:08/06/2025 Patient: LAVERN EDUARDO :1950 A ge:74 Y S ex:Male Address:[address] [place] [address], [address] * true * Date: Generated for Raffaele lara/Aminta/Yasmine on: 11/03/2024 08:04 AM EST
--- OUTSIDE RECORDS SUMMARY | 2025-09-03 08:04 | XMS_ITS | Clinical Summary ---
Author Organization [facility] Address [address] [facility] [address] [place] [address] Phone Care Team Providers Care Resaw Carriage Operator Name Role Phone Teto Gary MD [...] this topic Insurance [employer] MCR Adv PPO ([id number]) [employer] MCR Adv PPO ([id number]) Care Teams Resaw Carriage Operator Relationship Specialty Start Date End Date Teto Gary MD [address] [place] [address] [id number] [place], [place] PCP - General 10/21/20
--- OUTSIDE RECORDS SUMMARY | 2025-09-03 08:05 | XMS_ITS | Patient Health Record ---
Author Organization Teto Gary MD Address [address] [place], [place] [id number] Care Team Providers Care [employer]ander [employer] Machine Name Role Phone Teto Gary Primary Care Provider Allergies Allergen (clinical drug ingredient) Drug/Non Drug Allergy documented on EMR Reaction Allergy Type Onset Date Status diphenhydramine Benadryl Unknown Drug Allergy A ctive Results Component Value Reference Range Notes Liver Panel Reviewed date:03/09/2025 04:17:25 PM Interpretation: Performing Lab:[address] [phone] Notes/Report: Bilirubin Total 0.8 0.0-1.0 mg/dL Bilirubin Direct 0.3 0.0-0.5 mg/dL Aspartate Amino Transferase 27 5-37 U/L Alanine Aminotransferase 19 0-40 U/L Total Protein 7.1 6.5-8.0 g/dL Albumin Level 4.1 3.5-5.0 g/dL Alkaline Phosphatase 66 39-117 U/L Lipid Panel with Reflex Reviewed date:03/09/2025 04:17:09 PM Interpretation: Performing Lab:[address] [place] [address] Notes/Report: Triglycerides 79 <150 mg/dL Desirable Triglyceride: [...] POC Reviewed date:09/18/2024 12:40:45 PM Interpretation: Performing Lab:[facility], [address] [place] [phone] Notes/Report: PT, INR - [facility] 2.0 0.9-1.1 METER #: [id number] INTERNATIONAL NORMALIZED RATIO (INR) REFERENCE RANGES Reference [...] OC Reviewed date:09/18/2024 12:44:30 PM Interpretation: Performing Lab:[facility], [address] [place] [phone] Notes/Report: Prothrombin Time Whole Bld POC 23.9 11.1-13.5 sec INR WHOLE BLOOD POC Reviewed date:10/16/2024 09:52:45 AM Interpretation: Performing Lab:[facility], [address] [place] [phone] Notes/Report: PT, INR - [facility] 3.6 0.9-1.1 METER #: [id number] INTERNATIONAL NORMALIZED RATIO (INR) REFERENCE RANGES Reference [...] OC Reviewed date:10/16/2024 09:52:53 AM Interpretation: Performing Lab:[facility], [address] [place] [phone] Notes/Report: Prothrombin Time Whole Bld POC 43.8 11.1-13.5 sec INR WHOLE BLOOD POC Reviewed date:11/07/2024 04:28:35 PM Interpretation: Performing Lab:[facility], [address] [place] [phone] Notes/Report: PT, INR - [facility] 4.4 0.9-1.1 METER #: [id number] INTERNATIONAL NORMALIZED RATIO (INR) REFERENCE RANGES Reference [...] OC Reviewed date:11/07/2024 04:28:26 PM Interpretation: Performing Lab:[facility], [address] [place] [phone] Notes/Report: Prothrombin Time Whole Bld POC 52.3 11.1-13.5 sec INR WHOLE BLOOD POC Reviewed date:11/22/2024 05:40:44 PM Interpretation: Performing Lab:[facility], [address] [place] [phone] Notes/Report: PT, INR - [facility] 1.5 0.9-1.1 METER #: [id number] Doctor Notified INTERNATIONAL NORMALIZED RATIO (INR) REFERENCE [...] OC Reviewed date:11/22/2024 05:40:26 PM Interpretation: Performing Lab:[address] [phone] Notes/Report: Prothrombin Time Whole Bld POC 17.8 11.1-13.5 sec INR WHOLE BLOOD POC Reviewed date:11/24/2024 12:39:31 PM Interpretation: Performing Lab:[facility], [address] [place] [phone] Notes/Report: PT, INR - [facility] 2.6 0.9-1.1 METER #: [id number] INTERNATIONAL NORMALIZED RATIO (INR) REFERENCE RANGES Reference [...] OC Reviewed date:11/24/2024 12:35:01 PM Interpretation: Performing Lab:[address] [address] Notes/Report: Prothrombin Time Whole Bld POC 30.8 11.1-13.5 sec INR WHOLE BLOOD POC Reviewed date:12/11/2024 11:04:14 AM Interpretation: Performing Lab:[address] [phone] Notes/Report: PT, INR - [facility] 3.2 0.9-1.1 METER #: [id number] INTERNATIONAL NORMALIZED RATIO (INR) REFERENCE RANGES Reference [...] OC Reviewed date:12/11/2024 12:37:20 PM Interpretation: Performing Lab:[facility], [address] [place] [phone] Notes/Report: Prothrombin Time Whole Bld POC 38.2 11.1-13.5 sec INR WHOLE BLOOD POC Reviewed date:01/01/2025 12:32:57 PM Interpretation: Performing Lab:[facility], [address] [place] [phone] Notes/Report: PT, INR - [facility] 4.6 0.9-1.1 METER #: [id number] INTERNATIONAL NORMALIZED RATIO (INR) REFERENCE RANGES Reference [...] OC Reviewed date:01/01/2025 12:33:05 PM Interpretation: Performing Lab:[facility], [address] [place] [phone] Notes/Report: Prothrombin Time Whole Bld POC 54.9 11.1-13.5 sec INR WHOLE BLOOD POC Reviewed date:01/08/2025 12:19:34 PM Interpretation: Performing Lab:[facility], [address] [place] [phone] Notes/Report: PT, INR - [facility] 1.4 0.9-1.1 METER #: [id number] INTERNATIONAL NORMALIZED RATIO (INR) REFERENCE RANGES Reference [...] OC Reviewed date:01/08/2025 12:19:26 PM Interpretation: Performing Lab:[facility], [address] [place] [phone] Notes/Report: Prothrombin Time Whole Bld POC 16.7 11.1-13.5 sec INR WHOLE BLOOD POC Reviewed date:01/15/2025 08:45:45 AM Interpretation: Performing Lab:[facility], [address] [place] [phone] Notes/Report: PT, INR - [facility] 2.0 0.9-1.1 METER #: [id number] INTERNATIONAL NORMALIZED RATIO (INR) REFERENCE RANGES Reference [...] OC Reviewed date:01/15/2025 08:45:37 AM Interpretation: Performing Lab:[facility], [address] [place] [phone] Notes/Report: Prothrombin Time Whole Bld POC 23.9 11.1-13.5 sec INR WHOLE BLOOD POC Reviewed date:02/07/2025 04:59:10 PM Interpretation: Performing Lab:[facility], [address] [place] [phone] Notes/Report: PT, INR - [facility] 3.1 0.9-1.1 METER #: [id number] INTERNATIONAL NORMALIZED RATIO (INR) REFERENCE RANGES Reference [...] OC Reviewed date:02/07/2025 04:59:01 PM Interpretation: Performing Lab:[facility], [address] [place] [phone] Notes/Report: Prothrombin Time Whole Bld POC 37.7 11.1-13.5 sec INR WHOLE BLOOD POC Reviewed date:02/19/2025 12:25:05 PM Interpretation: Performing Lab:[facility], [address] [place] [phone] Notes/Report: PT, INR - [facility] 2.9 0.9-1.1 METER #: [id number] INTERNATIONAL NORMALIZED RATIO (INR) REFERENCE RANGES Reference [...] OC Reviewed date:02/19/2025 12:25:12 PM Interpretation: Performing Lab:[facility], [address] [place] [phone] Notes/Report: Prothrombin Time Whole Bld POC 34.3 11.1-13.5 sec Hold Gold Reviewed date:03/09/2025 04:15:47 PM Interpretation: Performing Lab:[address] [phone] Notes/Report: Hold Gold See Note Specimen held untested for 24 hours; Call to request Chemistry testing. INR WHOLE BLOOD POC Reviewed date:03/12/2025 08:52:01 AM Interpretation: Performing Lab:[facility], [address] [place] [phone] Notes/Report: PT, INR - [facility] 2.3 0.9-1.1 METER #: [id number] INTERNATIONAL NORMALIZED RATIO (INR) REFERENCE RANGES Reference [...] OC Reviewed date:03/12/2025 08:51:47 AM Interpretation: Performing Lab:[facility], [address] [place] [phone] Notes/Report: Prothrombin Time Whole Bld POC 27.8 11.1-13.5 sec INR WHOLE BLOOD POC Reviewed date:04/02/2025 12:25:58 PM Interpretation: Performing Lab:[facility], [address] [place] [phone] Notes/Report: PT, INR - [facility] 4.4 0.9-1.1 METER #: [id number] INTERNATIONAL NORMALIZED RATIO (INR) REFERENCE RANGES Reference [...] OC Reviewed date:04/02/2025 12:26:06 PM Interpretation: Performing Lab:[facility], [address] [place] [phone] Notes/Report: Prothrombin Time Whole Bld POC 52.3 11.1-13.5 sec INR WHOLE BLOOD POC Reviewed date:04/09/2025 01:00:49 PM Interpretation: Performing Lab:[facility], [address] [place] [phone] Notes/Report: PT, INR - [facility] 2.0 0.9-1.1 METER #: [id number] INTERNATIONAL NORMALIZED RATIO (INR) REFERENCE RANGES Reference [...] OC Reviewed date:04/09/2025 11:54:02 AM Interpretation: Performing Lab:[facility], [address] [place] [phone] Notes/Report: Prothrombin Time Whole Bld POC 24.2 11.1-13.5 sec INR WHOLE BLOOD POC Reviewed date:04/16/2025 12:38:18 PM Interpretation: Performing Lab:[facility], [address] [place] [phone] Notes/Report: PT, INR - [facility] 3.0 0.9-1.1 METER #: [id number] INTERNATIONAL NORMALIZED RATIO (INR) REFERENCE RANGES Reference [...] OC Reviewed date:04/16/2025 12:38:10 PM Interpretation: Performing Lab:[facility], [address] [place] [phone] Notes/Report: Prothrombin Time Whole Bld POC 36.0 11.1-13.5 sec INR WHOLE BLOOD POC Reviewed date:05/04/2025 09:07:14 PM Interpretation: Performing Lab:[facility], [address] [place] [phone] Notes/Report: PT, INR - [facility] 3.1 0.9-1.1 METER #: [id number] INTERNATIONAL NORMALIZED RATIO (INR) REFERENCE RANGES Reference [...] OC Reviewed date:05/04/2025 09:06:52 PM Interpretation: Performing Lab:[facility], [address] [place] [phone] Notes/Report: Prothrombin Time Whole Bld POC 36.9 11.1-13.5 sec INR WHOLE BLOOD POC Reviewed date:05/21/2025 11:57:08 AM Interpretation: Performing Lab:[facility], [address] [place] [phone] Notes/Report: PT, INR - [facility] 4.5 0.9-1.1 METER #: [id number] INTERNATIONAL NORMALIZED RATIO (INR) REFERENCE RANGES Reference [...] OC Reviewed date:05/21/2025 11:57:15 AM Interpretation: Performing Lab:[facility], [address] [place] [phone] Notes/Report: Prothrombin Time Whole Bld POC 53.7 11.1-13.5 sec INR WHOLE BLOOD POC Reviewed date:05/28/2025 11:14:53 AM Interpretation: Performing Lab:[facility], [address] [place] [phone] Notes/Report: PT, INR - [facility] 3.0 0.9-1.1 METER #: [id number] INTERNATIONAL NORMALIZED RATIO (INR) REFERENCE RANGES Reference [...] OC Reviewed date:05/28/2025 08:28:36 AM Interpretation: Performing Lab:[facility], [address] [place] [phone] Notes/Report: Prothrombin Time Whole Bld POC 36.1 11.1-13.5 sec INR WHOLE BLOOD POC Reviewed date:06/15/2025 02:49:16 PM Interpretation: Performing Lab:[facility], [address] [place] [phone] Notes/Report: PT, INR - [facility] 1.5 0.9-1.1 METER #: [id number] Doctor Notified INTERNATIONAL NORMALIZED RATIO (INR) REFERENCE [...] OC Reviewed date:06/15/2025 02:49:09 PM Interpretation: Performing Lab:[facility], [address] [place] [phone] Notes/Report: Prothrombin Time Whole Bld POC 17.5 11.1-13.5 sec INR WHOLE BLOOD POC Reviewed date:06/20/2025 05:56:33 PM Interpretation: Performing Lab:[address] [phone] Notes/Report: PT, INR - [facility] 2.5 0.9-1.1 METER #: [id number] INTERNATIONAL NORMALIZED RATIO (INR) REFERENCE RANGES Reference [...] OC Reviewed date:06/20/2025 05:56:42 PM Interpretation: Performing Lab:[facility], [address] [place] [phone] Notes/Report: Prothrombin Time Whole Bld POC 29.4 11.1-13.5 sec INR WHOLE BLOOD POC Reviewed date:07/09/2025 12:47:32 PM Interpretation: Performing Lab:[facility], [address] [place] [phone] Notes/Report: PT, INR - [facility] 3.7 0.9-1.1 METER #: [id number] INTERNATIONAL NORMALIZED RATIO (INR) REFERENCE RANGES Reference [...] OC Reviewed date:07/09/2025 12:47:39 PM Interpretation: Performing Lab:[facility], [address] [place] [phone] Notes/Report: Prothrombin Time Whole Bld POC 43.9 11.1-13.5 sec INR WHOLE BLOOD POC Reviewed date:07/24/2025 05:01:48 PM Interpretation: Performing Lab:[facility], [address] [place] [phone] Notes/Report: PT, INR - [facility] 1.8 0.9-1.1 METER #: [id number] INTERNATIONAL NORMALIZED RATIO (INR) REFERENCE RANGES Reference [...] OC Reviewed date:07/24/2025 05:01:57 PM Interpretation: Performing Lab:[facility], [address] [place] [phone] Notes/Report: Prothrombin Time Whole Bld POC 21.1 11.1-13.5 sec INR WHOLE BLOOD POC Reviewed date:08/06/2025 12:32:56 PM Interpretation: Performing Lab:[facility], [address] [place] [phone] Notes/Report: PT, INR - [facility] 1.6 0.9-1.1 METER #: [id number] INTERNATIONAL NORMALIZED RATIO (INR) REFERENCE RANGES Reference [...] OC Reviewed date:08/06/2025 12:32:48 PM Interpretation: Performing Lab:[facility], [address] [place] [phone] Notes/Report: Prothrombin Time Whole Bld POC 18.8 11.1-13.5 sec INR WHOLE BLOOD POC Reviewed date:08/10/2025 04:26:39 PM Interpretation: Performing Lab:[facility], [address] [place] [phone] Notes/Report: PT, INR - [facility] 3.7 0.9-1.1 METER #: [id number] INTERNATIONAL NORMALIZED RATIO (INR) REFERENCE RANGES Reference [...] OC Reviewed date:08/10/2025 04:23:52 PM Interpretation: Performing Lab:[address] [phone] Notes/Report: Prothrombin Time Whole Bld POC 44.3 11.1-13.5 sec INR WHOLE BLOOD POC Reviewed date:08/20/2025 12:46:30 PM Interpretation: Performing Lab:[address] [address] Notes/Report: PT, INR - [facility] 2.1 0.9-1.1 METER #: [id number] INTERNATIONAL NORMALIZED RATIO (INR) REFERENCE RANGES Reference [...] OC Reviewed date:08/20/2025 12:45:08 PM Interpretation: Performing Lab:[address] [address] Notes/Report: Prothrombin Time Whole Bld POC 25.5 [...] Problem Status W/U Status Risk Notes Problem 00205879 Prostatism (N40.0) Active confirmed Problem 01895273 Essential (prima ry) hypertension (I10) Active confirmed Problem 130520379652928 Erectile dysfunc tion due to arterial insufficiency (N52.01) Active confirmed Problem 5739527 Psoriasis (L40.9) Active confirmed Problem 249215444 Acquired hypothyroidism (E03.9) Active confirmed Problem 741593340 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) Active confirmed Problem 85160656 Alcohol abuse (F10.10) Active confirme d Problem 37826946 Heart murmur (R01.1) Active confirmed Problem 55553064 RBBB (I45.10) Active confirmed Problem 642980182 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) Active confirmed Problem 42607529 Chronic renal fa ilure, stage 3 (moderate) (N18.3) Active confirmed Problem 836761349 Pure hypercholesterolemia (E78.00) Active confirmed Problem 209995444 Other cardiac arrhythmia (I49.8) Active confirmed Problem 61004862452487 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) Active confirmed Problem 0994993347464378 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) Active confirmed Problem 300969128 Age-related inci pient cataract of both eyes (H25.093) Active confirmed Problem 869982350 Chronic kidney d isease (CKD) stage G1/A2, [...] Date Provider Diagnosis Teto Gary MD [address] [place] [address] Drive [address] [place] [id number] 03/09/2025 Teto Gary Pure hypercholestero lemia E78.00 Teto Gary MD [address] [place] [address] Drive [address] [place] [address] [id number] 09/15/2024 Teto Gary Left inguinal hernia K40.90 ; Annual physical exam Z00.00 ; Mechanical heart valve present Z95.2 ; Essential (primary) hypertension I10 ; Microscopic hematuria R31.29 ; Prostatism N40.0 ; Pure hypercholesterolemia E78.00 ; Acquired hypothyroidism E03.9 ; Colon cancer screening Z12.11 and Depression screening Z13.31 Teto Gary MD [address] [place] [address] Drive [address] [place] [id number] 11/13/2024 Teto Gary Mechanical heart mary ve present Z95.2 ; Mild dementia without behavioral disturbance, psychotic disturbance, mood disturbance, or anxiety, unspecified dementia type F03.A0 and Heme positive stool R19.5 Teto Gary MD [address] [place] [address] Drive [address] [place] [address] [id number] 03/19/2025 Teto Gary Bilateral carotid ar jacque disease I77.9 ; Pure hypercholesterolemia E78.00 and Leg pain M79.606 Teto Gary MD [address] [place] [address] Drive [address] [place] [id number] 07/30/2025 Teto Gary Leg pain, left M79.6 05 Teto Gary MD [address] [place] [address] [id number] 10/27/2024 Teto Gary MD [address] [place] [address] [id number] 01/08/2025 Teto Gary MD [address] [place] [address] [id number] 07/05/2025 Teto Gary MD [address] [place] [address] [id number] 08/06/2025 Teto Gary Assessments Encounter Date Diagnosis (ICD Code) Assessment Notes Treatment Notes Treatment Clinical Notes Section Notes 03/09/2025 Pure hypercholesterolemia (ICD-10 - E78.00) 09/15/2024 Left inguinal hernia (ICD-10 - K40.90) have explained what a strangulated hernia is if it occcurs and the need to have it repaired immediately. [facility]'t want [facility] anything 09/15/2024 [...] and if not to [facility]/ referral to [facility] 09/15/2024 Mechanical heart mary ve present [...] Name:Teto Sky ier, 09/13/2025 07:30:00 AM, [address] [place] [address], [place] [address], [place], [place], [id number], Provider Name:Teto Sky ier, 09/20/2025 01:00:00 PM, [address] [place] [address], [address], [place], [place], [id number], Insurance Providers Payer Name Payer Address Payer Phone Subscriber Number Group Number Insured Name Patient Relationship to Insured Coverage Start Date Coverage End Date [employer]AGE [address] [place], [place] [id number] [employer] Self - patient is the insured [address] [place] [address] [id number] [employer] Self - patient is the [...]
[2025-09-03 08:08] LABS: Prothrombin Time Whole Bld POC 20.6 sec (11.1-13.5); ~PT, ~INR - Anti Coag Clinic 1.7 (0.9-1.1)
--- NOTE | 2025-09-03 08:11 | MHC.OFFVISCO ---
Intake Intake Visit Reasons: Anticoagulation Allergies diphenhydramine (From BENADRYL) Allergy (Intermediate, Verified 09/03/25 08:03) RESTLESS LEGS lisinopril (LISINOPRIL) Allergy (Intermediate, Verified 09/03/25 08:03) DIZZINESS Lisiopril/HCTZ Allergy (Unknown, Uncoded 09/03/25 08:03) dizziness Medication List - Last Reconciled 09/03/25 by Stefani Kelly RN acetaminophen 975 mg PO QID PRN amlodipine 10 mg PO DAILY docusate sodium 100 mg PO BID PRN levothyroxine 150 mcg PO DAILY losartan 25 mg PO DAILY metoprolol succinate ER 50 mg PO DAILY rosuvastatin 40 mg PO DAILY tamsulosin (Flomax) 0.4 mg PO DAILY warfarin 5 mg See Protocol PO DAILY Nursing Note INR: 1.7 out of therapeutic range of 2-3 Py thinks he missed a dose Medications and supplements reviewed Patient status: no changes Medications or supplements: no changes Diet: usual diet for pt Denies any signs and symptoms of bleeding or clotting or unusual bruising Bleeding, bruising, clotting discussed Nutritional guidance given: to have a serving of foods that raises the INR and to avoid greens today. Pt said he will have beets and grapes today Dose: increase today's dose to 12.5mg then usual dose of 10mg X 6 days and 7.5mg X 1 day (Sun) F/U INR Date: 2 weeks Patient verbalizing understanding of instructions given. 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
== END 2025-09-03 08:16 | disposition home or self-care (01) ==
LOC: HO.ACS 08:02
PROVIDERS: PCP Internal Medicine; Visit Provider Internal Medicine Medical Oncology
DX: Z79.01 Long term (current) use of anticoagulants (principal)

== ENCOUNTER → 2025-09-03 08:02 | Outpatient (BNVA) | payer MEDICARE, MEDICAID, SELFPAY | PROVIDERS: PCP Internal Medicine; Visit Provider Internal Medicine Medical Oncology | DX: Z79.01 Long term (current) use of anticoagulants (principal) | CPT/HCPCS: 85610; 99211 ==

== ENCOUNTER 2025-09-13 11:46 | Outpatient (REF) | payer MEDICARE, MEDICAID, SELFPAY ==
--- OUTSIDE RECORDS SUMMARY | 2024-09-15 08:45 | XMS_ITS ---
Author Organization Teto Gary MD Address [address] [place], [place] [id number] Care Team Providers Care Bad Cloth Checker Name Role Phone Teto Gary Primary Care Provider [phone] Allergies Allergen (clinical drug ingredient) Drug/Non Drug [...] Location Date Provider Diagnosis Teto Gary MD [address] [place] [address] [place] [phone] 09/15/2024 Teto Gary Left inguinal hernia K40.90 [...] screen Next Appt Details Provider Name:Teto kaye, 09/20/2025 01:00:00 PM, [address] [place] [address], [address], [place], [place], [phone], Progress Notes * LAVERN LIVINGSTON RDOB:1950 (74 yo M)Acc No.[id number]:09/15/2024 Progress Notes Patient: LAVERN EDUARDO Provider: Naveen Gary MD :1950 A ge:74 Y S ex:Male Date:09/15/2024 Address:[address] [place], [place] [phone] Subjective: * Chief Complaints: * A NNUAL [...] Travel outside of the [place]. P atient states drinks a pint of whiskey everyday. [...] Auto 0.000 0.0-0.012 - X10*3/uL L ab:Comprehensive [place]. Panel Fast (Order Date - 08/18/2024) (Collection [...] Counseling: C are goal follow-up plan: C rickyeling for abnormal BMI provided?Yes, Alvin gastelum Normal BMI Follow-up Naveen trimble encouragement to exercise. * * Sign off status: Completed true * Provider: Naveen Gary MD Date: 11/16/2023 Generated for Raffaele lara/Aminta/Yasmine on: 11/14/2024 03:53 PM EST History and Physical Notes * [...]
--- OUTSIDE RECORDS SUMMARY | 2024-10-27 05:12 | XMS_ITS ---
Author Organization Teto Gary MD Address [address] [place], [place] [phone] Care Team Providers Care Utility Worker Forge Name Role Phone MarcellTeto minor Primary Care Provider REASON FOR VISIT ER Visit rec'd Encounters Encounter Location Date Provider Diagnosis Teto Gary MD [address] [place] [phone] 10/27/2024 Teto Gary Plan Of Treatment Next Appt Details Provider Name:Teto Sky ier, 09/20/2025 01:00:00 PM, [address], [address], [place], [place], [phone], Progress Notes * LAVERN LIVINGSTON RDOB:1950 (74 yo M)Acc No.[id number]:10/27/2024 Patient: LAVERN EDUARDO :1950 A ge:74 Y S ex:Male Address:[address] [place] [address], [address] * true * Date: Generated for Printi ng/Faxing/eTransmitting on: 1 11/14/2024 03:56 PM EST
--- OUTSIDE RECORDS SUMMARY | 2024-11-13 06:30 | XMS_ITS ---
Author Organization Teto Gary MD Address [address] [place], [place] [phone] Care Team Providers Care Still Operator Batch Or Continuous Name Role Phone Teto Gary Primary Care Provider Allergies Allergen (clinical drug ingredient) Drug/Non Drug Allergy documented on EMR Reaction Allergy Type Onset Date Status Benadryl Unknown Drug Allergy Active REASON FOR VISIT was seen at [facility] for [place], has already seen the [...] Teto Gary MD [address] [place], [place] [phone] 11/13/2024 Teto Gary Mechanical heart valve present [...] Up: 2 Months, Reason: Provider Name:Teto kaye, 09/20/2025 01:00:00 PM, [address], [address], [place], [place], [phone], Progress Notes * LAVERN LIVINGSTON RDOB:1950 (74 yo M)Acc No.[id number]:11/13/2024 Progress Notes Patient: LAVERN EDUARDO Provider: Naveen aGry MD :1950 A ge:74 Y S ex:Male Date:11/13/2024 Address:[address] [place] [address] [place], [facility] Subjective: * Chief Complaints: * w as seen at [facility] for her[place], has already seen the [...] concerned that he is not seeing a business liaison manager at present. memory has been bad for [...] 11/13/2024 Generated for Raffaele lara/Aminta/Nickitting on: 1 11/14/2024 03:56 PM EST History and Physical Notes * [...] concerned that he is not seeing a business liaison manager at present. memory has been bad for [...]
--- OUTSIDE RECORDS SUMMARY | 2025-03-09 02:15 | XMS_ITS ---
Author Organization Teto Gary MD Address [address] [place], [place] [phone] Care Team Providers Care Ecological Modeler Name Role Phone Teto Gary Primary Care Provider Results Component Value Reference Range Notes Liver Panel Reviewed date:03/09/2025 04:17:25 PM Interpretation: Performing Lab:[facility], [address] [place] [phone] Notes/Report: Bilirubin Total 0.8 0.0-1.0 mg/dL Bilirubin Direct 0.3 0.0-0.5 mg/dL Aspartate Amino Transferase 27 5-37 U/L Alanine Aminotransferase 19 0-40 U/L Total Protein 7.1 6.5-8.0 g/dL Albumin Level 4.1 3.5-5.0 g/dL Alkaline Phosphatase 66 39-117 U/L Lipid Panel with Reflex Reviewed date:03/09/2025 04:17:09 PM Interpretation: Performing Lab:[facility], [address] [place] [phone] Notes/Report: Triglycerides 79 <150 mg/dL Desirable Triglyceride: less than 150 mg/dL Borderline High Triglyceride 150-199 mg/dL High Triglyceride: 200-499 mg/dL Very High Triglyceride: greater than or equal to 5OO mg/dL Cholesterol 177 <200 mg/dL Desirable Cholesterol: less than 200 mg/dL Borderline High Cholesterol: 200-239 mg/dL High Cholesterol: greater than 239 mg/dL LDL Cholesterol Calculated 85 <100 mg/dL Desirable LDL: less than 100 mg/dL Near Optimal/Above Optimal LDL: 110-129 mg/dL Borderline High LDL: 130-159 mg/dL High LDL: 160-189 mg/dL Very High LDL: greater than or equal to 190 mg/dL HDL Cholesterol 77 >40 mg/dL Desirable HDL: greater than 40 mg/dL Note: This HDL assay may give artificially low results in patients with liver disease. REASON FOR VISIT fasting lipids Encounters Encounter Location Date Provider Diagnosis Teto Gary MD [address] [place] [address] Drive [address] [place] [phone] 03/09/2025 Teto Gary Pure hypercholestero lemia E78.00 Assessments Encounter Date Diagnosis (ICD Code) Assessment Notes Treatment Notes Treatment Clinical Notes Section Notes 03/09/2025 Pure hypercholesterolemia (ICD-10 - E78.00) Plan Of Treatment Next Appt Details Provider Name:Teto Sky ier, 09/20/2025 01:00:00 PM, [address] [place] [address], Suite [facility], [place], [place], [phone], Progress Notes * MIKI LAVERN RDOB:1950 (75 yo M)Acc No.[id number]:03/09/2025 Progress Note Patient: LAVERN EDUARDO Provider: Naveen Gary MD :1950 A ge:74 Y S ex:Male Date:03/09/2025 Address:[address] [place], [place] [phone] Subjective: * Chief Complaints: * 1 . Fasting lipids. * Medical History: Objective: * Vitals: Assessment: * Assessment: 1. P ure hypercholesterolemia - E78.00 (Primary) Plan: * Treatment: * Procedure Codes: 3 6415 VENIPUNCT, ROUTINE* * * The named appointment provid er may or may not be the originator of this progress note, and it is not deemed complete until electronically signed by the appointment provider. Sign off status: Pending * Provider: Naveen Gary MD Date: 0 03/09/2025 Generated for Raffaele lara/Aminta/Yasmine on: 11/14/2024 03:51 PM EST
--- OUTSIDE RECORDS SUMMARY | 2025-03-19 08:30 | XMS_ITS ---
Author Organization Teto Gary MD Address [address] [place], [place] [phone] Care Team Providers Care Fringe Knotter Name Role Phone Teto Gary Primary Care Provider [phone] Allergies Allergen (clinical drug ingredient) Drug/Non Drug [...] kg/m2 03/19/2025 weight is down 9 pounds [facility] e 11-13-24 Encounters Encounter Location Date Provider Diagnosis Teto Gary MD [address] [place] [address] Drive [address] [place], [place] [phone] 03/19/2025 Teto Gary Bilateral carotid ar jacque [...] the cause Next Appt Details Provider Name:Teto Sky ier, 09/20/2025 01:00:00 PM, [address], [address], [place], [place], [phone], Progress Notes * LAVERN LIVINGSTON RDOB:1950 (74 yo M)Acc No.[id number]:03/19/2025 Progress Notes Patient: LAVERN EDUARDO Provider: Naveen Gary MD :1950 A ge:74 Y S ex:Male Date:03/19/2025 Address:[address] [place] [address] [place], [id number] Subjective: * Chief Complaints: * 6 month * HPI: S ymptom(s): patient is a 74 yo male here for 6 month follow up visit. * ROS: G eneral/Constitutional: Rajesh [place] hills. D enies F atigue. D enies F ever. D enies H eadache. E NT: Denies S ore throat. R espiratory: Laneies Maria Guadalupe ough. D enies S hortness of breath [...] MD Date: 0 03/19/2025 Generated for Raffaele lara/Aminta/Yasmine on: 1 11/14/2024 03:56 PM EST History [...]
--- OUTSIDE RECORDS SUMMARY | 2025-07-05 05:26 | XMS_ITS ---
Author Organization Teto Gary MD Address [address] [place] [phone] Care Team Providers Care Banquet Director Name Role Phone CookieZacn Primary Care Provider REASON FOR VISIT ER Visit Encounters Encounter Location Date Provider Diagnosis Teto Gary MD [address] [facility] [address] [place] [phone] 07/05/2025 Teto Gary Plan Of Treatment Next Appt Details Provider Name:Teto Sky ier, 09/20/2025 01:00:00 PM, [address] [facility] [address], Suite [facility], [place], [place], [phone], Progress Notes * LAVERN LIVINGSTON RDOB:1950 (74 yo M)Acc No.[id number]:07/05/2025 Patient: LAVERN EDUARDO :1950 A ge:74 Y S ex:Male Address:[address] [place] [address], [id number] * true * Date: Generated for Printi ng/Faxing/eTransmitting on: 1 11/14/2024 03:53 PM EST
--- OUTSIDE RECORDS SUMMARY | 2025-07-30 04:15 | XMS_ITS ---
Author Organization Teto Gary MD Address [address] [place], [place] [phone] Care Team Providers Care Campaign Analyst Name Role Phone Cookie Teto Primary Care Provider Allergies Allergen (clinical drug [...] kg/m2 07/30/2025 weight is down 2 pounds [facility] 03-19-25 Encounters Encounter Location Date Provider Diagnosis Teto Gary MD [address] [place] [address] Drive [address] [place], [place] [phone] 07/30/2025 Teto Gary Leg pain, left M79.605 Assessments Encounter Date Diagnosis (ICD Code) Assessment Notes Treatment Notes Treatment Clinical Notes Section Notes 07/30/2025 Leg pain, left (ICD-10 - M79.605) not clear if all the pain is in the kinee and possibly related to spine. will refer to ortho and see if that works and if not to PSSP/ referral to [facility] Plan Of Treatment Treatment Notes Assessment Notes Leg pain, left not clear if all the pain is in the kinee and possibly related to spine. will refer to ortho and see if that works and if not to PSSP/ referral to [facility] Referrals Referral Date Details 07/30/2025 07/30/2025, left leg pain, CLAUDIA DEE Next Appt Details Provider Name:Teto kaye, 09/20/2025 01:00:00 PM, [address] [place] [address], [address], [place], [place], [phone], Progress Notes * LAVERN LIVINGSTON RDOB:1950 (74 yo M)Acc No.[id number]:07/30/2025 Progress Notes Patient: LAVERN EDUARDO Provider: Naveen Gary MD :1950 A ge:74 Y S ex:Male Date:07/30/2025 Address:[address] [place] [address], [facility] Subjective: * Chief Complaints: * K nee [...] Gary MD Date: 1 Generated for Raffaele lara/Aminta/Nickitting on: 11/14/2024 03:56 PM EST History and Physical [...] 07/30/2025 Teto Gary DARYLE left leg p ain
--- OUTSIDE RECORDS SUMMARY | 2025-08-06 09:14 | XMS_ITS ---
Author Organization Teto Gary MD Address [address] [place] [phone] Care Team Providers Care Live In Caregiver Name Role Phone CookieZacn Primary Care Provider REASON FOR VISIT Low INR Encounters Encounter Location Date Provider Diagnosis Teto Gary MD 10 [facility] [address] [place] [phone] 08/06/2025 Teto Gary Plan Of Treatment Next Appt Details Provider Name:Teto Sky ier, 09/20/2025 01:00:00 PM, [address], Suite [facility], [place], [place], [phone], Progress Notes * LAVERN LIVINGSTON RDOB:1950 (74 yo M)Acc No.[id number]:08/06/2025 Patient: LAVERN EDUARDO :1950 A ge:74 Y S ex:Male Address:[address] [place] [address], [address] * true * Date: Generated for Printi ng/Faxing/eTransmitting on: 1 11/14/2024 03:51 PM EST
[2025-09-13 11:50] LABS: MANUAL DIFF FLAG NO
[2025-09-13 12:14] LABS: Hematocrit 37.3 % (42.0-52.0); Hemoglobin 12.3 g/dl (14.0-18.0); Imm Gran Abs Auto 0.02 X10*3/uL (0.00-0.03); Imm Gran Pct Auto 0.3 % (0.0-0.4); Lymphocytes Absolute Auto 2.2 X10*3/uL (1.2-4.9); Mean Corpuscular HGB Conc 33.0 g/dl (31.0-36.0); Mean Corpuscular Hemoglobin 29.4 pg (27.0-33.0); Mean Corpuscular Volume 89.0 fL (80.0-98.0); NRBC Abs Auto 0.000 X10*3/uL (0.0-0.012); NRBC Pct Auto 0.0 /100WBC (0.0-0.2); Platelet Count 252 X10*3/uL (160-400); Red Blood Count 4.19 X10*6/uL (4.60-5.80); White Blood Count 6.6 X10*3/uL (4.8-10.8)
[2025-09-13 12:31] LABS: Alanine Aminotransferase 17 U/L (0-40); Albumin Level 4.2 g/dL (3.5-5.0); Alkaline Phosphatase 66 U/L (39-117); Anion Gap 9 (12-20); Aspartate Amino Transferase 27 U/L (5-37); Blood Urea Nitrogen 25 mg/dL (9-16); Calcium 9.1 mg/dL (8.4-10.2); Carbon Dioxide 26 mmol/L (22-29); Chloride 109 mmol/L (96-108); Cholesterol 174 mg/dL (<200); Estimated Glomerular Filt Rate > 60; HDL Cholesterol 78 mg/dL (>40); Potassium 4.4 mmol/L (3.3-5.1); Sodium 140 mmol/L (135-145); Total Protein 7.0 g/dL (6.5-8.0); Triglycerides 92 mg/dL (<150)
[2025-09-13 12:35] LABS: Appearance Urine Clear; Glucose Urine UA Negative (Negative); PH 5.5 (5.0-9.0); Specific Gravity - Urine 1.015 (1.005-1.025); UMIC TRIGGER UACC YES
[2025-09-13 12:47] LABS: Prostate Specific Antigen 3.10 ng/mL (<0.05-4.0); Thyroid Stimulating Hormone 1.43 uIU/mL (0.32-4.0)
--- OUTSIDE RECORDS SUMMARY | 2025-09-13 15:51 | XMS_ITS | Clinical Summary ---
Author Organization [facility] Address [address] [facility] [address] [place] [address] Phone Care Team Providers Care Volunteer Firefighter Name Role Phone Teto Gary MD Primary Care Provider [phone] Allergies Active Allergy Reactions Criticality Noted Date [...] this topic Insurance [employer] MCR Adv PPO ([phone]) [employer] MCR Adv PPO ([id number]) Care Teams Volunteer Firefighter Relationship Specialty Start Date End Date Teto Gary MD [address] [place] [address] [id number] [place], [place] PCP - General 10/21/20
--- OUTSIDE RECORDS SUMMARY | 2025-09-13 15:56 | XMS_ITS | Patient Health Record ---
Author Organization Teto Gary MD Address [address] [place], [place] [id number] Care Team Providers Care Insurance Attorney Name Role Phone Teto Gary Primary Care Provider Allergies Allergen (clinical drug ingredient) Drug/Non Drug Allergy documented on EMR Reaction Allergy Type Onset Date Status diphenhydramine Benadryl Unknown Drug Allergy A ctive Results Component Value Reference Range Notes Liver Panel Reviewed date:03/09/2025 04:17:25 PM Interpretation: Performing Lab:[address] [phone] Notes/Report: Bilirubin Total 0.8 0.0-1.0 mg/dL Bilirubin Direct 0.3 0.0-0.5 mg/dL Aspartate Amino Transferase 27 5-37 U/L Alanine Aminotransferase 19 0-40 U/L Total Protein 7.1 6.5-8.0 g/dL Albumin Level 4.1 3.5-5.0 g/dL Alkaline Phosphatase 66 39-117 U/L Lipid Panel with Reflex Reviewed date:03/09/2025 04:17:09 PM Interpretation: Performing Lab:[address] [place] [address] Notes/Report: Triglycerides 79 <150 mg/dL Desirable Triglyceride: [...] liver disease. UA ClnCatch+Micro w/rflx Cul t (Not yet reviewed by provider) Interpretation: Performing Lab:[address] [phone] Notes/Report: Urine, Clean Catch Color Urine Yellow Appearance Urine Clear PH 5.5 5.0-9.0 Glucose Urine UA Negative Negative mg/dL Urine Blood Moderate (2+) Negative Specific Temple - Urine 1.015 1.005-1.025 Urine Protein 100 (2+) Neg-Trace mg/dL Urine Ketones Negative Negative mg/dL Nitrite Urine Negative Negative Leukocyte Esterase Urine Negative Negative RBC Urine 3-5 0-2 /HPF WBC Urine 0-5 0-5 /HPF Squamous Epithelial Cell Urine 0-2 0-2 /HPF Bacteria Urine None Seen None Seen Hyaline Casts Urine 0-2 0-2 /LPF Complete Blood Count Auto Di ff Reviewed date:09/13/2025 12:28:28 PM Interpretation: Performing Lab:[address] [phone] Notes/Report: White Blood Count 6.6 4.8-10.8 X10*3/uL [...] Panel Reviewed date:09/13/2025 12:49:33 PM Interpretation: Performing Lab:[facility], [address] [place] [phone] Notes/Report: Triglycerides 92 <150 mg/dL Desirable Triglyceride: [...] POC Reviewed date:09/18/2024 12:40:45 PM Interpretation: Performing Lab:[facility], [address] [place] [phone] Notes/Report: PT, INR - [facility] 2.0 0.9-1.1 METER #: [id number] INTERNATIONAL NORMALIZED RATIO (INR) REFERENCE RANGES Reference [...] OC Reviewed date:09/18/2024 12:44:30 PM Interpretation: Performing Lab:[facility], [address] [place] [phone] Notes/Report: Prothrombin Time Whole Bld POC 23.9 11.1-13.5 sec INR WHOLE BLOOD POC Reviewed date:10/16/2024 09:52:45 AM Interpretation: Performing Lab:[facility], [address] [place] [phone] Notes/Report: PT, INR - [facility]ag Clinic 3.6 0.9-1.1 METER #: [id number] INTERNATIONAL NORMALIZED RATIO (INR) REFERENCE RANGES Reference [...] OC Reviewed date:10/16/2024 09:52:53 AM Interpretation: Performing Lab:[facility], [address] [place] [phone] Notes/Report: Prothrombin Time Whole Bld POC 43.8 11.1-13.5 sec INR WHOLE BLOOD POC Reviewed date:11/07/2024 04:28:35 PM Interpretation: Performing Lab:[facility], [address] [place] [phone] Notes/Report: PT, INR - [facility]ag [facility] 4.4 0.9-1.1 METER #: [id number] INTERNATIONAL NORMALIZED RATIO (INR) REFERENCE RANGES Reference [...] OC Reviewed date:11/07/2024 04:28:26 PM Interpretation: Performing Lab:[facility], [address] [place] [phone] Notes/Report: Prothrombin Time Whole Bld POC 52.3 11.1-13.5 sec INR WHOLE BLOOD POC Reviewed date:11/22/2024 05:40:44 PM Interpretation: Performing Lab:[facility], [address] [place] [phone] Notes/Report: PT, INR - [facility] 1.5 0.9-1.1 METER #: [id number] Doctor Notified INTERNATIONAL NORMALIZED RATIO (INR) REFERENCE [...] OC Reviewed date:11/22/2024 05:40:26 PM Interpretation: Performing Lab:[facility], [address] [place] [phone] Notes/Report: Prothrombin Time Whole Bld POC 17.8 11.1-13.5 sec INR WHOLE BLOOD POC Reviewed date:11/24/2024 12:39:31 PM Interpretation: Performing Lab:[facility], [address] [place] [phone] Notes/Report: PT, INR - [facility] 2.6 0.9-1.1 METER #: [id number] INTERNATIONAL NORMALIZED RATIO (INR) REFERENCE RANGES Reference [...] OC Reviewed date:11/24/2024 12:35:01 PM Interpretation: Performing Lab:[facility], [address] [place] [phone] Notes/Report: Prothrombin Time Whole Bld POC 30.8 11.1-13.5 sec INR WHOLE BLOOD POC Reviewed date:12/11/2024 11:04:14 AM Interpretation: Performing Lab:[facility], [address] [place] [phone] Notes/Report: PT, INR - [facility]ag [facility] 3.2 0.9-1.1 METER #: [id number] INTERNATIONAL NORMALIZED RATIO (INR) REFERENCE RANGES Reference [...] OC Reviewed date:12/11/2024 12:37:20 PM Interpretation: Performing Lab:[facility], [address] [place] [phone] Notes/Report: Prothrombin Time Whole Bld POC 38.2 11.1-13.5 sec INR WHOLE BLOOD POC Reviewed date:01/01/2025 12:32:57 PM Interpretation: Performing Lab:[facility], [address] [place] [phone] Notes/Report: PT, INR - [facility]ag [facility] 4.6 0.9-1.1 METER #: [id number] INTERNATIONAL NORMALIZED RATIO (INR) REFERENCE RANGES Reference [...] OC Reviewed date:01/01/2025 12:33:05 PM Interpretation: Performing Lab:[facility], [address] [place] [phone] Notes/Report: Prothrombin Time Whole Bld POC 54.9 11.1-13.5 sec INR WHOLE BLOOD POC Reviewed date:01/08/2025 12:19:34 PM Interpretation: Performing Lab:[facility], [address] [place] [phone] Notes/Report: PT, INR - [facility] 1.4 0.9-1.1 METER #: [id number] INTERNATIONAL NORMALIZED RATIO (INR) REFERENCE RANGES Reference [...] OC Reviewed date:01/08/2025 12:19:26 PM Interpretation: Performing Lab:[facility], [address] [place] [phone] Notes/Report: Prothrombin Time Whole Bld POC 16.7 11.1-13.5 sec INR WHOLE BLOOD POC Reviewed date:01/15/2025 08:45:45 AM Interpretation: Performing Lab:[facility], [address] [place] [phone] Notes/Report: PT, INR - [facility] 2.0 0.9-1.1 METER #: [id number] INTERNATIONAL NORMALIZED RATIO (INR) REFERENCE RANGES Reference [...] OC Reviewed date:01/15/2025 08:45:37 AM Interpretation: Performing Lab:[facility], [address] [place] [phone] Notes/Report: Prothrombin Time Whole Bld POC 23.9 11.1-13.5 sec INR WHOLE BLOOD POC Reviewed date:02/07/2025 04:59:10 PM Interpretation: Performing Lab:[facility], [address] [place] [phone] Notes/Report: PT, INR - [facility] 3.1 0.9-1.1 METER #: [id number] INTERNATIONAL NORMALIZED RATIO (INR) REFERENCE RANGES Reference [...] OC Reviewed date:02/07/2025 04:59:01 PM Interpretation: Performing Lab:[facility], [address] [place] [phone] Notes/Report: Prothrombin Time Whole Bld POC 37.7 11.1-13.5 sec INR WHOLE BLOOD POC Reviewed date:02/19/2025 12:25:05 PM Interpretation: Performing Lab:[facility], [address] [place] [phone] Notes/Report: PT, INR - [facility]ag [facility] 2.9 0.9-1.1 METER #: [id number] INTERNATIONAL NORMALIZED RATIO (INR) REFERENCE RANGES Reference [...] OC Reviewed date:02/19/2025 12:25:12 PM Interpretation: Performing Lab:[facility], [address] [place] [phone] Notes/Report: Prothrombin Time Whole Bld POC 34.3 11.1-13.5 sec Hold Gold Reviewed date:03/09/2025 04:15:47 PM Interpretation: Performing Lab:[facility], [address] [place] [phone] Notes/Report: Hold Gold See Note Specimen held untested for 24 hours; Call to request Chemistry testing. INR WHOLE BLOOD POC Reviewed date:03/12/2025 08:52:01 AM Interpretation: Performing Lab:[facility], [address] [place] [phone] Notes/Report: PT, INR - [facility]ag [facility] 2.3 0.9-1.1 METER #: [id number] INTERNATIONAL NORMALIZED RATIO (INR) REFERENCE RANGES Reference [...] OC Reviewed date:03/12/2025 08:51:47 AM Interpretation: Performing Lab:[facility], [address] [place] [phone] Notes/Report: Prothrombin Time Whole Bld POC 27.8 11.1-13.5 sec INR WHOLE BLOOD POC Reviewed date:04/02/2025 12:25:58 PM Interpretation: Performing Lab:[facility], [address] [place] [phone] Notes/Report: PT, INR - [facility] 4.4 0.9-1.1 METER #: [id number] INTERNATIONAL NORMALIZED RATIO (INR) REFERENCE RANGES Reference [...] OC Reviewed date:04/02/2025 12:26:06 PM Interpretation: Performing Lab:[facility], [address] [place] [phone] Notes/Report: Prothrombin Time Whole Bld POC 52.3 11.1-13.5 sec INR WHOLE BLOOD POC Reviewed date:04/09/2025 01:00:49 PM Interpretation: Performing Lab:[facility], [address] [place] [phone] Notes/Report: PT, INR - [facility]ag [facility] 2.0 0.9-1.1 METER #: [id number] INTERNATIONAL NORMALIZED RATIO (INR) REFERENCE RANGES Reference [...] OC Reviewed date:04/09/2025 11:54:02 AM Interpretation: Performing Lab:[facility], [address] [place] [phone] Notes/Report: Prothrombin Time Whole Bld POC 24.2 11.1-13.5 sec INR WHOLE BLOOD POC Reviewed date:04/16/2025 12:38:18 PM Interpretation: Performing Lab:[facility], [address] [place] [phone] Notes/Report: PT, INR - [facility] 3.0 0.9-1.1 METER #: [id number] INTERNATIONAL NORMALIZED RATIO (INR) REFERENCE RANGES Reference [...] OC Reviewed date:04/16/2025 12:38:10 PM Interpretation: Performing Lab:[facility], [address] [place] [phone] Notes/Report: Prothrombin Time Whole Bld POC 36.0 11.1-13.5 sec INR WHOLE BLOOD POC Reviewed date:05/04/2025 09:07:14 PM Interpretation: Performing Lab:[facility], [address] [place] [phone] Notes/Report: PT, INR - [facility] 3.1 0.9-1.1 METER #: [id number] INTERNATIONAL NORMALIZED RATIO (INR) REFERENCE RANGES Reference [...] OC Reviewed date:05/04/2025 09:06:52 PM Interpretation: Performing Lab:[facility], [address] [place] [phone] Notes/Report: Prothrombin Time Whole Bld POC 36.9 11.1-13.5 sec INR WHOLE BLOOD POC Reviewed date:05/21/2025 11:57:08 AM Interpretation: Performing Lab:[facility], [address] [place] [phone] Notes/Report: PT, INR - [facility] 4.5 0.9-1.1 METER #: [id number] INTERNATIONAL NORMALIZED RATIO (INR) REFERENCE RANGES Reference [...] OC Reviewed date:05/21/2025 11:57:15 AM Interpretation: Performing Lab:[facility], [address] [place] [phone] Notes/Report: Prothrombin Time Whole Bld POC 53.7 11.1-13.5 sec INR WHOLE BLOOD POC Reviewed date:05/28/2025 11:14:53 AM Interpretation: Performing Lab:[facility], [address] [place] [phone] Notes/Report: PT, INR - [facility] 3.0 0.9-1.1 METER #: [id number] INTERNATIONAL NORMALIZED RATIO (INR) REFERENCE RANGES Reference [...] OC Reviewed date:05/28/2025 08:28:36 AM Interpretation: Performing Lab:[facility], [address] [place] [phone] Notes/Report: Prothrombin Time Whole Bld POC 36.1 11.1-13.5 sec INR WHOLE BLOOD POC Reviewed date:06/15/2025 02:49:16 PM Interpretation: Performing Lab:[facility], [address] [place] [phone] Notes/Report: PT, INR - [facility] 1.5 0.9-1.1 METER #: [id number] Doctor Notified INTERNATIONAL NORMALIZED RATIO (INR) REFERENCE [...] OC Reviewed date:06/15/2025 02:49:09 PM Interpretation: Performing Lab:[facility], [address] [place] [phone] Notes/Report: Prothrombin Time Whole Bld POC 17.5 11.1-13.5 sec INR WHOLE BLOOD POC Reviewed date:06/20/2025 05:56:33 PM Interpretation: Performing Lab:[facility], [address] [place] [phone] Notes/Report: PT, INR - [facility] 2.5 0.9-1.1 METER #: [id number] INTERNATIONAL NORMALIZED RATIO (INR) REFERENCE RANGES Reference [...] OC Reviewed date:06/20/2025 05:56:42 PM Interpretation: Performing Lab:[facility], [address] [place] [phone] Notes/Report: Prothrombin Time Whole Bld POC 29.4 11.1-13.5 sec INR WHOLE BLOOD POC Reviewed date:07/09/2025 12:47:32 PM Interpretation: Performing Lab:[address] [phone] Notes/Report: PT, INR - [facility]ag [facility] 3.7 0.9-1.1 METER #: [id number] INTERNATIONAL NORMALIZED RATIO (INR) REFERENCE RANGES Reference [...] OC Reviewed date:07/09/2025 12:47:39 PM Interpretation: Performing Lab:[address] [phone] Notes/Report: Prothrombin Time Whole Bld POC 43.9 11.1-13.5 sec INR WHOLE BLOOD POC Reviewed date:07/24/2025 05:01:48 PM Interpretation: Performing Lab:[facility], [address] [place] [phone] Notes/Report: PT, INR - [facility]ag [facility] 1.8 0.9-1.1 METER #: [id number] INTERNATIONAL NORMALIZED RATIO (INR) REFERENCE RANGES Reference [...] OC Reviewed date:07/24/2025 05:01:57 PM Interpretation: Performing Lab:[address] [phone] Notes/Report: Prothrombin Time Whole Bld POC 21.1 11.1-13.5 sec INR WHOLE BLOOD POC Reviewed date:08/06/2025 12:32:56 PM Interpretation: Performing Lab:[address] [phone] Notes/Report: PT, INR - Anti [facility]ag Clinic 1.6 0.9-1.1 METER #: [id number] INTERNATIONAL NORMALIZED RATIO (INR) REFERENCE RANGES Reference [...] OC Reviewed date:08/06/2025 12:32:48 PM Interpretation: Performing Lab:[facility], [address] [place] [phone] Notes/Report: Prothrombin Time Whole Bld POC 18.8 11.1-13.5 sec INR WHOLE BLOOD POC Reviewed date:08/10/2025 04:26:39 PM Interpretation: Performing Lab:[facility], [address] [place] [phone] Notes/Report: PT, INR - Anti [facility]ag Clinic 3.7 0.9-1.1 METER #: [id number] INTERNATIONAL NORMALIZED RATIO (INR) REFERENCE RANGES Reference [...] OC Reviewed date:08/10/2025 04:23:52 PM Interpretation: Performing Lab:[facility], [address] [place] [phone] Notes/Report: Prothrombin Time Whole Bld POC 44.3 11.1-13.5 sec INR WHOLE BLOOD POC Reviewed date:08/20/2025 12:46:30 PM Interpretation: Performing Lab:[facility], [address] [place] [phone] Notes/Report: PT, INR - Anti Coag Clinic 2.1 0.9-1.1 METER #: [id number] INTERNATIONAL NORMALIZED RATIO (INR) REFERENCE RANGES Reference [...] OC Reviewed date:08/20/2025 12:45:08 PM Interpretation: Performing Lab:[facility], [address] [place] [phone] Notes/Report: Prothrombin Time Whole Bld POC 25.5 11.1-13.5 sec Hold Lav - Possible Hematolo gy Reviewed date:09/13/2025 12:27:18 PM Interpretation: Performing Lab:[facility], [address] [place] [phone] Notes/Report: Hold Lav - Possible Hematology SEE NOTE Specimen will be held untested for 8 hours. Call Hematology if testing is desired. Comprehensive Met. Panel Reviewed date:09/13/2025 02:45:55 PM Interpretation: Performing Lab:[facility], [address] [place] [phone] Notes/Report: Sodium 140 135-145 mmol/L Potassium 4.4 3.3-5.1 mmol/L Chloride 109 96-108 mmol/L Carbon Dioxide 26 22-29 mmol/L Anion Gap 9 12-20 Blood Urea Nitrogen 25 9-16 mg/dL Creatinine 1.18 0.5-1.4 mg/dL Estimated Glomerular Filt Rate > 60 Chronic Kidney Disease: Estimated GFR < 60 mL/min/1.73m2 Severe Kidney Disease: Estimated GFR < 15 mL/min/1.73m2 Glucose Random 90 60-115 mg/dL Calcium 9.1 8.4-10.2 mg/dL Bilirubin Total 0.4 0.0-1.0 mg/dL Aspartate Amino Transferase 27 5-37 U/L Alanine Aminotransferase 17 0-40 U/L Total Protein 7.0 6.5-8.0 g/dL Albumin Level 4.2 3.5-5.0 g/dL Alkaline Phosphatase 66 39-117 U/L Prostate Specific Antigen Reviewed date:09/13/2025 12:49:22 PM Interpretation: Performing Lab:[facility], [address] [place] [phone] Notes/Report: Prostate Specific Antigen 3.10 <0.05-4.0 ng/mL PSA methodology: [employer] i Chemiluminescent Microparticle Immunoassay (CMIA) Thyroid Stimulating Hormone Reviewed date:09/13/2025 12:48:47 PM Interpretation: Performing Lab:[facility], [address] [place] [phone] Notes/Report: Thyroid Stimulating Hormone 1.43 0.32-4.0 uIU/ mL TSH 3rd Generation ([facility] [employer]) Reason For Referral Reason left leg pain [...] Problem Status W/U Status Risk Notes Problem 67825886 Prostatism (N40.0) Active confirmed Problem 58582547 Essential (prima ry) hypertension (I10) Active confirmed Problem 339946157462117 Erectile dysfunc tion due to arterial insufficiency (N52.01) Active confirmed Problem 2751009 Psoriasis (L40.9) Active confirmed Problem 222534543 Acquired hypothyroidism (E03.9) Active confirmed Problem 140262114 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) Active confirmed Problem 66553172 Alcohol abuse (F10.10) Active confirme d Problem 64610849 Heart murmur (R01.1) Active confirmed Problem 49958345 RBBB (I45.10) Active confirmed Problem 098441446 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) Active confirmed Problem 06877421 Chronic renal fa ilure, stage 3 (moderate) (N18.3) Active confirmed Problem 680901863 Pure hypercholesterolemia (E78.00) Active confirmed Problem 072586513 Other cardiac arrhythmia (I49.8) Active confirmed Problem 24288384709618 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) Active confirmed Problem 3589451623255141 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) Active confirmed Problem 709539480 Age-related inci pient cataract of both eyes (H25.093) Active confirmed Problem 655265653 Chronic kidney d isease (CKD) stage G1/A2, [...] Teto Gary MD [address] [place] [id number] 03/09/2025 Teto Gary Pure hypercholestero lemia E78.00 Teto Gary MD [address] [place] [id number] 09/13/2025 Teto Gary Blood tests for rout ine general physical examination Z00.00 ; Essential (primary) hypertension I10 ; Acquired hypothyroidism E03.9 ; Pure hypercholesterolemia E78.00 and Chronic kidney disease (CKD) stage G1/A2, glomerular filtration rate (GFR) equal to or greater than 90 mL/min/1.73 square meter and albuminuria creatinine ratio between 30-299 mg/g N18.1 Teto Gary MD [address] [place] [id number] 09/15/2024 Teto Gary Left inguinal hernia K40.90 ; Annual physical exam Z00.00 ; Mechanical heart valve present Z95.2 ; Essential (primary) hypertension I10 ; Microscopic hematuria R31.29 ; Prostatism N40.0 ; Pure hypercholesterolemia E78.00 ; Acquired hypothyroidism E03.9 ; Colon cancer screening Z12.11 and Depression screening Z13.31 Teto Gary MD [address] [place] [address] [id number] 11/13/2024 Teto Gary Mechanical heart mary ve present Z95.2 ; Mild dementia without behavioral disturbance, psychotic disturbance, mood disturbance, or anxiety, unspecified dementia type F03.A0 and Heme positive stool R19.5 Teto Gary MD [address] [place] [id number] 03/19/2025 Teto Gary Bilateral carotid ar jacque disease I77.9 ; Pure hypercholesterolemia E78.00 and Leg pain M79.606 Teto Gary MD [address] [place] [id number] 07/30/2025 Teto Gary Leg pain, left M79.6 05 Teto Gary MD [address] [place] [address] [id number] 10/27/2024 Teto Gary MD [address] [place] [address] [id number] 01/08/2025 Teto Gary MD [address] [place], [place] [id number] 07/05/2025 Teto Gary MD [address] [place] [id number] 08/06/2025 Teto Gary Assessments Encounter Date Diagnosis (ICD Code) Assessment Notes Treatment Notes Treatment Clinical Notes Section Notes 03/09/2025 Pure hypercholesterolemia (ICD-10 - E78.00) 09/13/[address] ine general physical examination (ICD-10 - Z00.00) 09/15/2024 Left inguinal hernia (ICD-10 - K40.90) [...] and if not to [facility]/ [place] [facility] [place] [facility] 09/13/2025 Essential (primary) hypertension (ICD-10 - I10) 09/15/2024 [...] and see if that is the cause 09/13/2025 Acquired hypothyroid ism (ICD-10 - E03.9) 09/15/2024 Essential (primary) hypertension (ICD-10 - I10) adequate control, will contnue current regiment 09/13/2025 Pure hypercholesterolemia (ICD-10 - E78.00) 09/15/2024 Microscopic hematuri a (ICD-10 - R31.29) refuses any evaluation 09/13/2025 Chronic kidney disea se (CKD) stage G1/A2, glomerular filtration rate (GFR) equal to or greater than 90 mL/min/1.73 square meter and albuminuria creatinine ratio between 30-299 mg/g (ICD-10 - N18.1) 09/15/2024 Prostatism (ICD-10 - N40.0) will continue [...] LAT 02/15/2023 US CAROTID BILATERAL DOPPLER 08/04/2021 Comprehensive [place]. Panel Fast 5 PSA,Total (Free>4and<10) 09/13/2025 TSH reflex Free T4 09/13/2025 CT chest wo con 04/27/2022 CT chest wo con 05/28/2022 UA ClnCatch+Micro w/rflx Cult 09/13/2025 ECHO 04/22/2020 Future Test Test Name Order Date CT CHEST NO CONTRAST 06/26/2021 Next Appt Details Provider Name:Teto kaye, 09/20/2025 01:00:00 PM, [address] [place] [address], [address], [place], [place], [id number], Insurance Providers Payer Name Payer Address Payer Phone Subscriber Number Group Number Insured Name Patient Relationship to Insured Coverage Start Date Coverage End Date [employer] [address] [place] [id number] [place] Self - patient is the insured [facility] [address] [place] [address] [id number] [employer] Self - patient is the [...]
== END 2025-09-13 11:47 | disposition home or self-care (01) ==
LOC: HO.LNP 11:46
PROVIDERS: Visit Provider Internal Medicine
DX: Z00.00 Encounter for general adult medical examination without abnormal findings (principal); I12.9 Hypertensive chronic kidney disease with stage 1 through stage 4 chronic kidney disease, or unspecified chronic kidney disease; N18.1 Chronic kidney disease, stage 1; E03.9 Hypothyroidism, unspecified; E78.00 Pure hypercholesterolemia, unspecified; Z12.5 Encounter for screening for malignant neoplasm of prostate
CPT/HCPCS: 80053; 80061; 81001; 84153; 84443; 85025

== ENCOUNTER 2025-09-17 08:07 | Outpatient (AMB) | payer MEDICARE, MEDICAID, SELFPAY ==
[2025-09-17 08:15] LABS: Prothrombin Time Whole Bld POC 34.6 sec (11.1-13.5); ~PT, ~INR - Anti Coag Clinic 2.9 (0.9-1.1)
--- NOTE | 2025-09-17 08:21 | MHC.OFFVISCO ---
Intake Intake Visit Reasons: Anticoagulation Allergies diphenhydramine (From BENADRYL) Allergy (Intermediate, Verified 09/17/25 08:09) RESTLESS LEGS lisinopril (LISINOPRIL) Allergy (Intermediate, Verified 09/17/25 08:09) DIZZINESS Lisiopril/HCTZ Allergy (Unknown, Uncoded 09/17/25 08:09) dizziness Medication List - Last Reconciled 09/17/25 by Nicole Mercado RN acetaminophen 975 mg PO QID PRN amlodipine 10 mg PO DAILY docusate sodium 100 mg PO BID PRN levothyroxine 150 mcg PO DAILY losartan 25 mg PO DAILY metoprolol succinate ER 50 mg PO DAILY rosuvastatin 40 mg PO DAILY tamsulosin (Flomax) 0.4 mg PO DAILY warfarin 5 mg See Protocol PO DAILY Nursing Note INR: 2.9 in therapeutic range Medications and supplements reviewed No changes in health, diet, medications, or supplements, Denies any signs and symptoms of bleeding or bruising or clotting. Bleeding, bruising, clotting discussed Nutritional guidance given Dose: KEEP SAME 7.5mg x 1 day/ 10mg x 6 days F/U INR: 2 weejs Patient verbalizes understanding of instructions given Coding Level of Care Code Est Patient Level 1 Diagnoses Current use of anticoagulant therapy Z79.01 Assessment & Plan Assessment & Plan (1) Current use of anticoagulant therapy: Code(s): Z79.01 - terminal manager (current) 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
== END 2025-09-17 08:27 | disposition home or self-care (01) ==
LOC: HO.ACS 08:07
PROVIDERS: PCP Internal Medicine; Visit Provider Internal Medicine Medical Oncology
DX: Z79.01 Long term (current) use of anticoagulants (principal)

== ENCOUNTER → 2025-09-17 08:07 | Outpatient (BNVA) | payer MEDICARE, MEDICAID, SELFPAY | PROVIDERS: PCP Internal Medicine; Visit Provider Internal Medicine Medical Oncology | DX: Z95.2 Presence of prosthetic heart valve (principal); Z51.81 Encounter for therapeutic drug level monitoring; Z79.01 Long term (current) use of anticoagulants | CPT/HCPCS: 85610; 99211 ==

== ENCOUNTER 2025-10-01 08:05 | Outpatient (AMB) | payer MEDICARE, MEDICAID, SELFPAY ==
--- OUTSIDE RECORDS SUMMARY | 2024-11-13 06:30 | XMS_ITS ---
Author Organization Teto Gary MD Address [address] [place], [place] [phone] Care Team Providers Care Hunting And Fishing Guide Name Role Phone Teto Gary Primary Care Provider [phone] Allergies Allergen (clinical drug ingredient) Drug/Non Drug Allergy documented on EMR Reaction Allergy Type Onset Date Status diphenhydramine Benadryl Unknown Drug Allergy A ctive REASON FOR VISIT was seen at [facility] [place] for her[place], has already seen the [...] Date Provider Diagnosis Teto Gary MD [address] [place], [place] [phone] 11/13/2024 Teto Gary Mechanical heart valve present [...] Up: 2 Months, Reason: Provider Name:Teto kaye, 03/11/2026 07:30:00 AM, [address] [facility], [address], [place], [place], [phone], Provider Name:Teto kaye, 03/18/2026 01:30:00 PM, [address], [address], [place], [place], [phone], Provider Name:Teto Sky ier, 09/23/2026 07:00:00 AM, [address], [address], [place], [place], [phone], Provider Name:Teto Sky ier, 09/30/2026 01:00:00 PM, [address], [address], [place], [phone], Progress Notes * LAVERN LIVINGSTON RDOB:1950 (74 yo M)Acc No.[id number]:11/13/2024 Progress Notes Patient: LAVERN EDUARDO Provider: Naveen Gary MD :1950 A ge:74 Y S ex:Male Date:11/13/2024 Address:[address] [place] [address], [id number] Subjective: * Chief Complaints: * w as seen at [facility] [place] [facility] for her[place], has already seen the [...] concerned that he is not seeing a cable installer repairer at present. memory has been bad for [...] MD Date: 0 11/13/2024 Generated for Raffaele lara/Aminta/Nickitting on: 1 12/02/2024 08:10 AM EST History and Physical Notes * [...] concerned that he is not seeing a cable installer repairer at present. memory has been bad for [...]
--- OUTSIDE RECORDS SUMMARY | 2025-01-08 04:45 | XMS_ITS ---
Author Organization Teto Gary MD Address [address] [place], [place] [phone] Care Team Providers Care Welding Process Engineer Name Role Phone Cookie Teto Primary Care Provider [phone] REASON FOR VISIT FYI INR results Encounters Encounter Location Date Provider Diagnosis Teto Gary MD 10 [facility] [address] [place] [phone] 01/08/2025 Teto Gary Plan Of Treatment Next Appt Details Provider Name:Teto Sky ier, 03/11/2026 07:30:00 AM, [address] [place] [address], Suite [facility], [place], [place], [phone], Provider Name:Teto Sky ier, 03/18/2026 01:30:00 PM, [address] [place] [address], Suite [facility], [place], [place], [phone], Provider Name:Teto Sky ielewis, 09/23/2026 07:00:00 AM, [address] [place] [address], Suite [facility], [place], [place], [phone], Provider Name:Teto kaye, 09/30/2026 01:00:00 PM, [address], [address], [place], [place], [phone], Progress Notes * LAVERN LIVINGSTON RDOB:1950 (74 yo M)Acc No.[id number]:01/08/2025 Patient: LAVERN EDUARDO :1950 A ge:74 Y S ex:Male Address:[address] [place] [address], [place] [address] * true * Date: Generated for Raffaele lara/Aminta/Mohsensmitting on: 12/02/2024 08:09 AM EST
--- OUTSIDE RECORDS SUMMARY | 2025-03-09 02:15 | XMS_ITS ---
Author Organization Teto Gary MD Address [address] [place], [place] [phone] Care Team Providers Care Collector Of Aquarium Specimens Name Role Phone Teto Gary Primary Care Provider Results Component Value Reference Range Notes Liver Panel Reviewed date:03/09/2025 04:17:25 PM Interpretation: Performing Lab:[facility], [address] [place] [phone] Notes/Report: Bilirubin Total 0.8 0.0-1.0 mg/dL Bilirubin Direct 0.3 0.0-0.5 mg/dL Aspartate Amino Transferase 27 5-37 U/L Alanine Aminotransferase 19 0-40 U/L Total Protein 7.1 6.5-8.0 g/dL Albumin Level 4.1 3.5-5.0 g/dL Alkaline Phosphatase 66 39-117 U/L Lipid Panel with Reflex Reviewed date:03/09/2025 04:17:09 PM Interpretation: Performing Lab:[facility], [address] [place] [phone] Notes/Report: Triglycerides 79 <150 mg/dL Desirable Triglyceride: [...] Location Date Provider Diagnosis Teto Gary MD [address] [place] [phone] 03/09/2025 Teto Gary Pure hypercholestero lemia E78.00 Assessments Encounter Date Diagnosis (ICD Code) Assessment Notes Treatment Notes Treatment Clinical Notes Section Notes 03/09/2025 Pure hypercholesterolemia (ICD-10 - E78.00) Plan Of Treatment Next Appt Details Provider Name:Teto kaye, 03/11/2026 07:30:00 AM, [address] [place] [address], [address], [phone], Provider Name:Teto kaye, 03/18/2026 01:30:00 PM, [address] [place] [address], [address], [phone], Provider Name:Teto kaye, 09/23/2026 07:00:00 AM, [address] [place] [address], [address], [phone], Provider Name:Teto kaye, 09/30/2026 01:00:00 PM, [address] [place] [address], [phone], Progress Notes * LAVERN LIVINGSTON RDOB:1950 (75 yo M)Acc No.[id number]:03/09/2025 Progress Note Patient: LAVERN EDUARDO Provider: Naveen Gary MD :1950 A ge:74 Y S ex:Male Date:03/09/2025 Address:[address] [place], [place] [phone] Subjective: * Chief Complaints: * 1 . [...] MD Date: 0 03/09/2025 Generated for Raffaele lara/Aminta/Nickitting on: 1 12/02/2024 08:09 AM EST
--- OUTSIDE RECORDS SUMMARY | 2025-03-19 08:30 | XMS_ITS ---
Author Organization Teto Gary MD Address [address] [place], [place] [phone] Care Team Providers Care Felt Hat Flanging Operator Name Role Phone Teto Gary Primary Care Provider [phone] Allergies Allergen (clinical drug ingredient) Drug/Non Drug [...] kg/m2 03/19/2025 weight is down 9 pounds [facility] e 11-13-24 Encounters Encounter Location Date Provider Diagnosis Teto Gary MD [address] [place] [address] [place] [phone] 03/19/2025 Teto Gary Bilateral carotid ar jacque [...] cause Next Appt Details Provider Name:Teto kaye, 03/11/2026 07:30:00 AM, [address] [place] [address], Suite [facility], [place], [place], [phone], Provider Name:Teto kaye, 03/18/2026 01:30:00 PM, [address] [place] [address], [place] [address], [place], [place], [phone], Provider Name:Teto kaye, 09/23/2026 07:00:00 AM, [address] [place] [address], [place] [address], [place], [place], [phone], Provider Name:Teto Sky ier, 09/30/2026 01:00:00 PM, [address], [address], [place], [place], [phone], Progress Notes * LAVERN LIVINGSTON RDOB:1950 (74 yo M)Acc No.[id number]:03/19/2025 Progress Notes Patient: LAVERN EDUARDO Provider: Naveen Gary MD :1950 A ge:74 Y S ex:Male Date:03/19/2025 Address:[address] [place] [address], [id number] Subjective: * Chief Complaints: * 6 month [...] MD Date: 0 03/19/2025 Generated for Raffaele lara/Aminta/Nickitting on: 1 12/02/2024 [...]
--- OUTSIDE RECORDS SUMMARY | 2025-07-05 05:26 | XMS_ITS ---
Author Organization Teto Gary MD Address [address] [place], [place] [phone] Care Team Providers Care Saddle Lining Stitcher Name Role Phone Teto Gary Primary Care Provider REASON FOR VISIT ER Visit Encounters Encounter Location Date Provider Diagnosis Teto Gary MD [facility] [address] [place] [phone] 07/05/2025 Teto Gary Plan Of Treatment Next Appt Details Provider Name:Teto Sky ier, 03/11/2026 07:30:00 AM, [address] [place] [address], Suite [facility], [place], [place], [phone], Provider Name:Teto Sky ier, 03/18/2026 01:30:00 PM, [address] [place] [address], Suite [facility], [place], [place], [phone], Provider Name:Teto Sky ier, 09/23/2026 07:00:00 AM, [address] [place] [address], Suite [facility], [place], [place], [phone], Provider Name:Teto Sky ier, 09/30/2026 01:00:00 PM, [address] [facility] [address], [address], [place], [place], [phone], Progress Notes * LAVERN LIVINGSTON RDOB:1950 (74 yo M)Acc No.[id number]:07/05/2025 Patient: LAVERN EDUARDO :1950 A ge:74 Y S ex:Male Address:[address] [place] [address], [phone] * true * Date: Generated for Raffaele lara/Aminta/Mohsensmitting on: 12/02/2024 08:09 AM EST
--- OUTSIDE RECORDS SUMMARY | 2025-07-30 04:15 | XMS_ITS ---
Author Organization Teto Gary MD Address [address] [place], [place] [phone] Care Team Providers Care First Coat Operator Name Role Phone Cookie Teto Primary Care Provider [phone] Allergies Allergen (clinical drug ingredient) Drug/Non Drug Allergy documented on EMR Reaction Allergy Type Onset Date Status diphenhydramine Benadryl Unknown Drug Allergy A ctive Reason For Referral Reason left leg pain Diagnosis 1 Leg pain, left (M79. 605) Referral Organization Teto Gary MD Referring Provider First Name Teto Referring Provider Last Name Cookie Referring Provider Speciality Internal M edicine Referred Provider CLAUDIA DEE Referred Provider Specialty Orthopedic S urgery General Notes Lorna Nagy 1 10:19:21 AM >patient is aware of appt Referral Priority Routine Referral Appointment Date 08/22/2025 REASON FOR VISIT knee pain left Medications Medication SIG (Take, Route, Frequency, Duration) Notes Start Date End Date Status amLODIPine Besylate 10 MG TAKE 1 TABLET BY MOUTH EVERY DAY for 90 Active Levothyroxine Sodium 150 MCG TAKE 1 TABL ET BY MOUTH EVERY MORNING ON AN EMPTY STOMACH ORALLY ONCE A DAY 90 DAYS for 90 Active Metoprolol Succinate ER 50 MG TAKE 1 TABLET BY MOUTH EVERY DAY FOR 90 DAYS for 90 Active Losartan Potassium 25 MG TAKE 1 TABLET B Y MOUTH EVERY DAY FOR 90 DAYS for 90 Active Tamsulosin HCl 0.4 MG TAKE 1 CAPSULE BY MOUTH EVERY DAY for 90 Active Rosuvastatin Calcium 40 MG TAKE 1 TABLET BY MOUTH EVERY DAY Active Warfarin Sodium 5 MG TAKE 2 TABLETS ON WEDNESDAY, WEDNESDAY, WEDNESDAY, TAKE 2.5 TABLETS ON OTHER DAYS ORALLY ONCE A DAY 90 DAYS Active Sildenafil Citrate 100 MG 1 tablet as ne eded Orally Once a day for 30 day(s) 05/01/2019 Active Immunizations Vaccine Route Administration Date Status Comme nts Influenza High Dose Unknown 07/30/2025 Refused Vital Signs Blood pressure systolic 142 mm Hg 07/30/20 25 Blood pressure diastolic 60 mm Hg 025 Height 71.5 in 07/30/2025 Weight 255 lbs 07/30/2025 BMI 35.07 kg/m2 07/30/2025 weight is down 2 pounds [facility] 03-19-25 Encounters Encounter Location Date Provider Diagnosis Teto Gary MD [address] [place] [address] [address] [place], [place] [phone] 07/30/2025 Teto Gary Leg pain, left M79.605 Assessments Encounter Date Diagnosis (ICD Code) Assessment Notes Treatment Notes Treatment Clinical Notes Section Notes 07/30/2025 Leg pain, left (ICD-10 - M79.605) not clear if all the pain is in the kinee and possibly related to spine. will refer to ortho and see if that works and if not to PSSP/ referral to [facility] Plan Of Treatment Treatment Notes Assessment Notes Leg pain, left not clear if all the pain is in the kinee and possibly related to spine. will refer to ortho and see if that works and if not to PSSP/ referral to [facility] Referrals Referral Date Details 07/30/2025 07/30/2025, left leg pain, CLAUDIA DEE Next Appt Details Provider Name:Teto kaye, 03/11/2026 07:30:00 AM, [address] [place] [address], [address], [place], [place], [phone], Provider Name:Teto kaye, 03/18/2026 01:30:00 PM, [address] [place] [address], [address], [place], [place], [phone], Provider Name:Teto Sky ier, 09/23/2026 07:00:00 AM, [address] [facility], [address], [place], [place], [phone], Provider Name:Teto Sky ier, 09/30/2026 01:00:00 PM, [address] [facility], [address], [place], [place], [phone], Progress Notes * LAVERN LIVINGSTON RDOB:1950 (74 yo M)Acc No.[id number]:07/30/2025 Progress Notes Patient: LAVERN EDUARDO Provider: Naveen Gary MD :1950 A ge:74 Y S ex:Male Date:07/30/2025 Address:[address] [place] [address], [facility] Subjective: * Chief Complaints: * K nee pain left * HPI: S ymptom(s): patient is a 74 yo male here with complaint of knee painhas pain in knee for 2 to 3 months. using cane. knee. pain is all the way down leg. at times hears popping and cracking. * ROS: G eneral/Constitutional: Denies C hills. D enies F atigue. D enies F ever. D enies H eadache. E NT: Denies S ore throat. R espiratory: Denies C ough. D enies S hortness of breath at rest. D enies S hortness of breath with exertion. G astrointestinal: Denies D iarrhea. D enies N ausea. * Medical History: * Surgical History: * Hospitalization/Major Diagno stic Procedure: * Medications: T akingSildenafil Citrate 100 MG Tablet 1 tablet as needed Orally Once a day Warfarin Sodium 5 [...] STOMACH ORALLY ONCE A DAY 90 DAYS amLODIPine Besylate 10 MG Tablet TAKE 1 TABLET BY MOUTH EVERY DAY Metoprolol Succinate ER 50 MG Tablet Extended Release 24 Hour TAKE 1 TABLET BY MOUTH EVERY DAY FOR 90 DAYS Medication List reviewed and reconciled with the patientTaking Sildenafil Citrate 100 MG Tablet 1 tablet as needed Orally Once a day Taking Warfarin Sodium [...] STOMACH ORALLY ONCE A DAY 90 DAYS Taking amLODIPine Besylate 10 MG Tablet TAKE 1 TABLET BY MOUTH EVERY DAY Taking Metoprolol Succinate ER 50 MG Tablet Extended Release 24 Hour TAKE 1 TABLET BY MOUTH EVERY DAY FOR 90 DAYS Medication List reviewed and reconciled with the patient * Allergies: B enadryl: Allergyyes[Allergies Verified] Objective: * Vitals: H t: 71.5, Wt: 255, BMI:35.07, BP:142/60, Wt-k.67. weight is down 2 pounds since 03-19-25. * Examination: G eneral Examination: GENERAL APPEARANCE: a lert, well hydrated, in no distress.? HEAD: n ormocephalic. HEART: n o murmurs, rubs, gallops, regular rate and rhythm.? LUNGS: n o wheezes, rales, rhonchi, good air movement, clear to auscultation bilaterally. MUSCULOSKELETAL: k nee on left swollen. ? Assessment: * Assessment: 1. L eg pain, left - M79.605 (Primary) Plan: * Treatment: * Immunizations: Influenza High Dose (Not administered - Refused: Patient decision) * Procedure Codes: * Preventive Medicine: Immunizations: I nfluenza H ave you had a flu shot since the most recent June 11? N o patient refused at visit today. * * Sign off status: Completed true * Provider: Naveen Gary MD Date: 1 Generated for Raffaele lara/Aminta/Yasmine on: 12/02/2024 08:10 AM EST History and Physical Notes * HPI (History of Present Illness) Category Sub-Category Detail Notes Category Not es Symptom(s) patient is a 74 yo male here with complaint of knee painhas pain in knee for 2 to 3 months. using cane. knee. pain is all the way down leg. at times hears popping and cracking Examination Category Sub-Category Detail Notes Category Not es General Examination GENERAL APPEARANCE: alert, w ell hydrated, in no distress HEAD: normocephalic HEART: no murmurs, rubs, ga llops, regular rate and rhythm LUNGS: no wheezes, rales, r honchi, good air movement, clear to auscultation bilaterally MUSCULOSKELETAL: knee on left swollen Consultation Request Notes Referral Date Referring Provider Referred Provider Not es 07/30/2025 Teto Gary DARYLE left leg p [place]
--- OUTSIDE RECORDS SUMMARY | 2025-08-06 09:14 | XMS_ITS ---
Author Organization Teto Gary MD Address [address] [place], [place] [phone] Care Team Providers Care Central Supply Clerk Name Role Phone Teto Gary Primary Care Provider [phone] REASON FOR VISIT Low INR Encounters Encounter Location Date Provider Diagnosis Teto Gary MD 10 [facility] [address] [place] [phone] 08/06/2025 Teto Gary Plan Of Treatment Next Appt Details Provider Name:Teto Sky ier, 03/11/2026 07:30:00 AM, [address] [place] [address], Suite [facility], [place], [place], [phone], Provider Name:Teto Sky ier, 03/18/2026 01:30:00 PM, [address] [place] [address], Suite [facility], [place], [place], [phone], Provider Name:Teto Sky ier, 09/23/2026 07:00:00 AM, [address] [place] [address], Suite [facility], [place], [place], [phone], Provider Name:Teto Sky ier, 09/30/2026 01:00:00 PM, [address] [facility] [address], [address], [place], [place], [phone], Progress Notes * LAVERN LIVINGSTON RDOB:1950 (74 yo M)Acc No.[id number]:08/06/2025 Patient: LAVERN EDUARDO :1950 A ge:74 Y S ex:Male Address:[address] [place] [address], [address] * true * Date: Generated for Raffaele lara/Aminta/Mohsensmitting on: 12/02/2024 08:09 AM EST
--- OUTSIDE RECORDS SUMMARY | 2025-09-13 02:30 | XMS_ITS ---
Author Organization Teto Gary MD Address [address] [place], [place] [id number] Care Team Providers Care Court Manager Name Role Phone Teto Gary Primary Care Provider Results Component Value Reference Range Notes Complete Blood Count Auto Di ff Reviewed date:09/13/2025 12:28:28 PM Interpretation: Performing Lab:[facility], [address] [place] [phone] Notes/Report: White Blood Count 6.6 4.8-10.8 X10*3/uL Red Blood Count 4.19 4.60-5.80 X10*6/uL Hemoglobin 12.3 14.0-18.0 g/dl Hematocrit 37.3 42.0-52.0 % Mean Corpuscular Volume 89.0 80.0-98.0 fL Mean Corpuscular Hemoglobin 29.4 27.0-33.0 pg Mean Corpuscular HGB Conc 33.0 31.0-36.0 g/dl Red Cell Distribution Width 14.9 11.0-16.0 % Platelet Count 252 160-400 X10*3/uL Mean Platelet Volume 9.9 9.4-12.4 fL Neutrophils Percent Auto 48.6 45-73 % Imm Gran Pct Auto 0.3 0.0-0.4 % Lymphocytes Percent Auto 32.9 20-40 % Monocytes Percent Auto 9.5 2-11 % Eosinophils Percent Auto 8.2 0-4 % Basophils Percent Auto 0.5 0-2 % NRBC Pct Auto 0.0 0.0-0.2 /100WBC Neutrophils Absolute Auto 3.2 2.0-8.3 x10*3/u L Imm Gran Abs Auto 0.02 0.00-0.03 X10*3/uL Lymphocytes Absolute Auto 2.2 1.2-4.9 X10*3/u L Monocytes Absolute Auto 0.6 0.1-1.2 X10*3/uL Eosinophils Absolute Auto 0.5 0.0-0.4 X10*3/u L Basophils Absolute Auto 0.0 0.0-0.2 X10*3/uL NRBC Abs Auto 0.000 0.0-0.012 X10*3/uL Lipid Panel Reviewed date:09/13/2025 12:49:33 PM Interpretation: Performing Lab:[address] [phone] Notes/Report: Triglycerides 92 <150 mg/dL Desirable Triglyceride: less than 150 mg/dL Borderline High Triglyceride 150-199 mg/dL High Triglyceride: 200-499 mg/dL Very High Triglyceride: greater than or equal to 5OO mg/dL Cholesterol 174 <200 mg/dL Desirable Cholesterol: less than 200 mg/dL Borderline High Cholesterol: 200-239 mg/dL High Cholesterol: greater than 239 mg/dL LDL Cholesterol Calculated 78 <100 mg/dL Desirable LDL: less than 100 mg/dL Near Optimal/Above Optimal LDL: 110-129 mg/dL Borderline High LDL: 130-159 mg/dL High LDL: 160-189 mg/dL Very High LDL: greater than or equal to 190 mg/dL HDL Cholesterol 78 >40 mg/dL Desirable HDL: greater than 40 mg/dL Note: This HDL assay may give artificially low results in patients with liver disease. UA ClnCatch+Micro w/rflx Cul t Reviewed date:09/13/2025 05:40:49 PM Interpretation: Performing Lab:[facility], [address] [place] [phone] Notes/Report: Urine, Clean Catch Color Urine Yellow Appearance Urine Clear PH 5.5 5.0-9.0 Glucose Urine UA Negative Negative mg/dL Urine Blood Moderate (2+) Negative Specific [place] - Urine 1.015 1.005-1.025 Urine Protein 100 (2+) Neg-Trace mg/dL Urine Ketones Negative Negative mg/dL Nitrite Urine Negative Negative Leukocyte Esterase Urine Negative Negative RBC Urine 3-5 0-2 /HPF WBC Urine 0-5 0-5 /HPF Squamous Epithelial Cell Urine 0-2 0-2 /HPF Bacteria Urine None Seen None Seen Hyaline Casts Urine 0-2 0-2 /LPF REASON FOR VISIT yearly fasting labs Encounters Encounter Location Date Provider Diagnosis Teto Gary MD [address] [place] [address] [address] [place], [place] [id number] 09/13/2025 Teto Gary Blood tests for rout ine general physical examination Z00.00 ; Essential (primary) hypertension I10 ; Acquired hypothyroidism E03.9 ; Pure hypercholesterolemia E78.00 and Chronic kidney disease (CKD) stage G1/A2, glomerular filtration rate (GFR) equal to or greater than 90 mL/min/1.73 square meter and albuminuria creatinine ratio between 30-299 mg/g N18.1 Assessments Encounter Date Diagnosis (ICD Code) Assessment Notes Treatment Notes Treatment Clinical Notes Section Notes 09/13/2025 Blood tests for rout ine general physical examination (ICD-10 - Z00.00) 09/13/2025 Essential (primary) hypertension (ICD-10 - I10) 09/13/2025 Acquired hypothyroid ism (ICD-10 - E03.9) 09/13/2025 Pure hypercholesterolemia (ICD-10 - E78.00) 09/13/2025 Chronic kidney disea se (CKD) stage G1/A2, glomerular filtration rate (GFR) equal to or greater than 90 mL/min/1.73 square meter and albuminuria creatinine ratio between 30-299 mg/g (ICD-10 - N18.1) Plan Of Treatment Pending Test Test Name Order Date Comprehensive [place]. Panel Fast PSA,Total (Free>4and<10) 09/13/2025 TSH reflex Free T4 09/13/2025 Next Appt Details Provider Name:Teto Sky ier, 03/11/2026 07:30:00 AM, [address], [address], [place], [place], [phone], Provider Name:Teto Sky ier, 03/18/2026 01:30:00 PM, [address], [address] [facility], [place], [place], [phone], Provider Name:Teto Sky ier, 09/23/2026 07:00:00 AM, [address], [address] [facility], [place], [place], [phone], Provider Name:Teto Sky ier, 09/30/2026 01:00:00 PM, [address], [address] [facility], [place], [phone], Progress Notes * LAVERN LIVINGSTON RDOB:1950 (75 yo M)Acc No.[id number]:09/13/2025 Progress Note Patient: LAVERN EDUARDO Provider: Naveen Gary MD :1950 A ge:75 Y S ex:Male Date:09/13/2025 Address:[address] [place], [place] [id number] Subjective: * Chief Complaints: * 1 . Yearly fasting labs. * Medical History: Objective: * Vitals: Assessment: * Assessment: 1. B lood tests for routine general physical examination - Z00.00 (Primary) 2 .?Essential (primary) hypertension - I10 3 . A cquired hypothyroidism - E03.9 4 . P ure hypercholesterolemia - E78.00 5 . C hronic kidney disease (CKD) stage G1/A2, glomerular filtration rate (GFR) equal to or greater than 90 mL/min/1.73 square meter and albuminuria creatinine ratio between 30-299 mg/g - N18.1 Plan: * Treatment: 2. E ssential (primary) hypertension L AB: Comprehensive [place]. Panel Fast L AB: PSA,Total (Free>4and<10) L AB: TSH reflex Free T4 L AB: Complete Blood Count Auto Diff (Collection Date & Time - 09/13/2025 07:30 AM) L AB: Lipid Panel (Collection Date & Time - 09/13/2025 07:30 AM) L AB: UA ClnCatch+Micro w/rflx Cult (Collection Date & Time - 09/13/2025 07:30 AM) 3. A cquired hypothyroidism L AB: Comprehensive [place]. Panel Fast L AB: PSA,Total (Free>4and<10) L AB: TSH reflex Free T4 L AB: Complete Blood Count Auto Diff (Collection Date & Time - 09/13/2025 07:30 AM) L AB: Lipid Panel (Collection Date & Time - 09/13/2025 07:30 AM) L AB: UA ClnCatch+Micro w/rflx Cult (Collection Date & Time - 09/13/2025 07:30 AM) 4. P ure hypercholesterolemia L AB: Comprehensive [place]. Panel Fast L AB: PSA,Total (Free>4and<10) L AB: TSH reflex Free T4 L AB: Complete Blood Count Auto Diff (Collection Date & Time - 09/13/2025 07:30 AM) L AB: Lipid Panel (Collection Date & Time - 09/13/2025 07:30 AM) L AB: UA ClnCatch+Micro w/rflx Cult (Collection Date & Time - 09/13/2025 07:30 AM) 5. C hronic kidney disease (CKD) stage G1/A2, glomerular filtration rate (GFR) equal to or greater than 90 mL/min/1.73 square meter and albuminuria creatinine ratio between 30-299 mg/g L AB: Comprehensive [place]. Panel Fast L AB: PSA,Total (Free>4and<10) L AB: TSH reflex Free T4 L AB: Complete Blood Count Auto Diff (Collection Date & Time - 09/13/2025 07:30 AM) L AB: Lipid Panel (Collection Date & Time - 09/13/2025 07:30 AM) L AB: UA ClnCatch+Micro w/rflx Cult (Collection Date & Time - 09/13/2025 07:30 AM) * Procedure Codes: 3 6415 VENIPUNCT, ROUTINE* * * The named appointment provid er may or may not be the originator of this progress note, and it is not deemed complete until electronically signed by the appointment provider. Sign off status: Pending * Provider: Naveen Gary MD Date: 1 11/14/2024 Generated for Raffaele lara/Aminta/Yasmine on: 1 12/02/2024 08:09 AM EST
--- OUTSIDE RECORDS SUMMARY | 2025-09-17 09:09 | XMS_ITS ---
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 Name Role Phone Teto Gary Primary Care Provider REASON FOR VISIT REFILL ROSUVASTATIN Medications Medication SIG (Take, Route, Frequency, Duration) Notes Start Date End Date Status Rosuvastatin Calcium 40 MG TAKE 1 TABLET BY MOUTH EVERY DAY for 90 days Active Encounters Encounter Location Date Provider Diagnosis Teto Gary MD [address] [place] [phone] 09/17/2025 Teto Gary Pure hypercholestero lemia E78.00 Assessments Encounter Date Diagnosis (ICD Code) Assessment Notes Treatment Notes Treatment Clinical Notes Section Notes 09/17/2025 Pure hypercholesterolemia (ICD-10 - E78.00) Plan Of Treatment Medication Medication Name Sig Start Date Stop Date Notes Rosuvastatin Calcium 40 MG TAKE 1 TABLET BY MOUTH EVERY DAY for 90 days Next Appt Details Provider Name:Teto kaye, 03/11/2026 07:30:00 AM, [address] [facility], [address] [facility], [place], [place], [phone], Provider Name:Teto Sky ier, 03/18/2026 01:30:00 PM, [address], [address], [place], [phone], Provider Name:Teto Sky ier, 09/23/2026 07:00:00 AM, [address], [address], [place], [phone], Provider Name:Teto Sky ier, 09/30/2026 01:00:00 PM, [address], [address], [place], [phone], Progress Notes * LAVERN LIVINGSTON RDOB:1950 (75 yo M)Acc No.[id number]:09/17/2025 Patient: LAVERN EDUARDO :1950 A ge:75 Y S ex:Male Address:[address] [place] [address], [address] * Refills Refill Rosuvastatin Calcium Tablet, 40 MG, 90, TAKE 1 TABLET BY MOUTH EVERY DAY, 90 days, Refills=3 * true * Date: Generated for Raffaele lara/Aminta/Nickitting on: 12/02/2024 08:10 AM EST
--- OUTSIDE RECORDS SUMMARY | 2025-09-20 08:00 | XMS_ITS ---
Author Organization Teto Gary MD Address [address] [place], [place] [id number] Care Team Providers Care Blender Conveyor Operator Name Role Phone Teto Gary Primary Care Provider Allergies Allergen (clinical drug ingredient) Drug/Non Drug Allergy documented on EMR Reaction Allergy Type Onset Date Status diphenhydramine Benadryl Unknown Drug Allergy A ctive REASON FOR VISIT annual visit Medications Medication SIG (Take, Route, Frequency, Duration) Notes Start Date End Date Status Levothyroxine Sodium 150 MCG TAKE 1 TABL ET BY MOUTH EVERY MORNING ON AN EMPTY STOMACH ORALLY ONCE A DAY 90 DAYS for 90 Active Losartan Potassium 25 MG TAKE 1 TABLET B Y MOUTH EVERY DAY FOR 90 DAYS for 90 Active Warfarin Sodium 5 MG TAKE 2 TABLETS ON WEDNESDAY, WEDNESDAY, WEDNESDAY, TAKE 2.5 TABLETS ON OTHER DAYS ORALLY ONCE A DAY 90 DAYS for 84 Active Metoprolol Succinate ER 50 MG TAKE 1 TABLET BY MOUTH EVERY DAY FOR 90 DAYS for 90 Active amLODIPine Besylate 10 MG TAKE 1 TABLET BY MOUTH EVERY DAY for 90 Active Tamsulosin HCl 0.4 MG TAKE 1 CAPSULE BY MOUTH EVERY DAY for 90 Active Sildenafil Citrate 100 MG 1 tablet as ne eded Orally Once a day for 30 day(s) 05/01/2019 Active Rosuvastatin Calcium 40 MG TAKE 1 TABLET BY MOUTH EVERY DAY for 90 days Active Social History Tobacco Use: Social History [...] weeks ago. Vital Signs Blood pressure systolic 130 mm Hg 09/20/20 25 Blood pressure diastolic 58 mm Hg 025 Height 71.5 in 09/20/2025 Weight 255 lbs 09/20/2025 BMI 35.07 kg/m2 09/20/2025 Encounters Encounter Location Date Provider Diagnosis Teto Gary MD [address] [place] [address] [place] [phone] 09/20/2025 Teto Gary Essential (primary) hypertension I10 ; Adult general medical exam Z00.00 ; Pure hypercholesterolemia E78.00 ; Bilateral carotid artery disease I77.9 ; Acquired hypothyroidism E03.9 ; Colon cancer screening Z12.11 and Depression screen Z13.31 Assessments Encounter Date Diagnosis (ICD Code) Assessment Notes Treatment Notes Treatment Clinical Notes Section Notes 09/20/2025 Essential (primary) hypertension (ICD-10 - I10) well controlled, will continue current regiment 09/20/2025 Adult general medica l exam (ICD-10 - Z00.00) bs reviewed and discussed with patient 09/20/2025 Pure hypercholesterolemia (ICD-10 - E78.00) well controlled, will continue current regiment 09/20/2025 Bilateral carotid ar jacque disease (ICD-10 - I77.9) had not changed in 4 years and was only minimal 09/20/2025 Acquired hypothyroid ism (ICD-10 - E03.9) stable, will contnue current regiment 09/20/2025 Colon cancer screeni ng (ICD-10 - Z12.11) guaiac negative 09/20/2025 Depression screen (ICD-10 - Z13.31) negative screen Plan Of Treatment Treatment Notes Assessment Notes Essential (primary) hypertension well co ntrolled, will continue current regiment Pure hypercholesterolemia well controlle d, will continue current regiment Bilateral carotid artery disease had not changed in 4 years and was only minimal Acquired hypothyroidism stable, will con tnue current regiment Colon cancer screening guaiac negative Depression screen negative screen Next Appt Details Follow Up: 6 Months, Reason: Provider Name:Teto Sky ier, 03/11/2026 07:30:00 AM, [address] [place] [address], [address] [place] [address], [phone], Provider Name:Teto Sky ier, 03/18/2026 01:30:00 PM, [address] [place] [address], [address] [place] [address], [phone], Provider Name:Teto Sky ier, 09/23/2026 07:00:00 AM, [address] [place] [address], [address] [place] [address], [phone], Provider Name:Teto Sky ier, 09/30/2026 01:00:00 PM, [address] [place] [address], [address] [place] [address], [phone], Progress Notes * MIKILAVERN RDOB:1950 (75 yo M)Acc No.[id number]:09/20/2025 Progress Notes Patient: LAVERN EDUARDO Provider: Naveen Gary MD :1950 A ge:75 Y S ex:Male Date:09/20/2025 Address:[address] [place] [address], [id number] Subjective: * Chief Complaints: * A nnual visit * HPI: D epression Screening: PHQ-9 L [...] all that apply: N one. S ymptom(s): yessenia cardona is a 75 yo male here for yearly evaluation with review of recent labs and follow up of chronic issues, is retirinng at end of year. * ROS: G eneral/Constitutional: Change in appetite d enies. C hills d enies. F ever d enies. O phthalmologic: Blurred vision d enies. D ischarge d enies. P ain d enies. E NT: Decreased hearing d enies. S ore throat d enies.?Swollen glands d enies. E ndocrine: Cold intolerance [...] F requent urination d enies. M usculoskeletal: Painful joints d enies. W eakness d enies. ? S kin: Dry skin d enies. I [...] 78 yrs. 1 daughter(s) . . Mother-Emphysema Father-NM 1 brother 1 sister, Denies mental health/substance abuse family history, No pertinent family medical history 1 brother 73 Covid 1 sister lung cancer, No pertinent family medical history. * Social History: T obacco Use: T obacco Use/Smoking P atient is a n onsmoker, A dditional Findings: Tobacco Non-User C urrent non-smoker, currently using no form of tobacco. D rugs/Alcohol: A lcohol Screen D id you have a drink containing alcohol in the past year? N o, P oints 0 , I nterpretation N egative. M iscellaneous: C affeine: yes, frequency:, 1-2 cups per day. Exercise: no. Home smoke detector use: yes. Housing: renting. Living with: alone. Marital status: single. Occupation: weeks/months/years, works part-time. P atient states drinks a pint of whiskey everyday. Today starts a new life no more drinking as of 08-04-21 has not had any alcohol x 1 month 08-19-23 patient silvia stopped drinking 2 weeks ago. * Medications: T akingSildenafil Citrate 100 MG Tablet 1 tablet as needed Orally Once a day Tamsulosin HCl 0.4 MG Capsule TAKE 1 [...] BY MOUTH EVERY DAY FOR 90 DAYS Warfarin Sodium 5 MG Tablet TAKE 2 TABLETS ON WEDNESDAY, WEDNESDAY, WEDNESDAY, TAKE 2.5 TABLETS ON OTHER DAYS ORALLY ONCE A DAY 90 DAYS Rosuvastatin Calcium 40 MG Tablet TAKE 1 TABLET BY MOUTH EVERY DAY Medication List reviewed and reconciled with the patientTaking Sildenafil Citrate 100 MG Tablet 1 tablet as needed Orally Once a day Taking Tamsulosin HCl 0.4 MG Capsule TAKE [...] MOUTH EVERY DAY FOR 90 DAYS Taking Warfarin Sodium 5 MG Tablet TAKE 2 TABLETS ON WEDNESDAY, WEDNESDAY, WEDNESDAY, TAKE 2.5 TABLETS ON OTHER DAYS ORALLY ONCE A DAY 90 DAYS Taking Rosuvastatin Calcium 40 MG Tablet TAKE 1 TABLET BY MOUTH EVERY DAY Medication List reviewed and reconciled with the patient * Allergies: B enadryl: Allergyyes[Allergies Verified] Objective: * Vitals: H t: 71.5, Wt: 255, BMI:35.07, BP:130/58, Wt-k.67. * P ast Orders: L ab:Prostate Specific Antigen (Order Date - 09/13/2025) (Collection Date & Time - 09/13/2025 07:30 AM) Value Reference Range Prostate Specific Antigen 3.10 <0.05-4.0 - ng /mL L ab:Complete Blood Count Auto Diff (Order Date - 09/13/2025) (Collection Date & Time - 09/13/2025 07:30 AM) Value Reference Range White Blood Count 6.6 4.8-10.8 - X10*3/uL Red Blood Count 4.19 L 4.60-5.80 - X10*6/uL Hemoglobin 12.3 L 14.0-18.0 - g/dl Hematocrit 37.3 L 42.0-52.0 - % Mean Corpuscular Volume 89.0 80.0-98.0 - fL Mean Corpuscular Hemoglobin 29.4 27.0-33.0 - pg Mean Corpuscular HGB Conc 33.0 31.0-36.0 - g/ dl Red Cell Distribution Width 14.9 11.0-16.0 - % Platelet Count 252 160-400 - X10*3/uL Mean Platelet Volume 9.9 9.4-12.4 - fL Neutrophils Percent Auto 48.6 45-73 - % Imm Gran Pct Auto 0.3 0.0-0.4 - % Lymphocytes Percent Auto 32.9 20-40 - % Monocytes Percent Auto 9.5 2-11 - % Eosinophils Percent Auto 8.2 H 0-4 - % Basophils Percent Auto 0.5 0-2 - % NRBC Pct Auto 0.0 0.0-0.2 - /100WBC Neutrophils Absolute Auto 3.2 2.0-8.3 - x10* 3/uL Imm Gran Abs Auto 0.02 0.00-0.03 - X10*3/uL Lymphocytes Absolute Auto 2.2 1.2-4.9 - X10* 3/uL Monocytes Absolute Auto 0.6 0.1-1.2 - X10*3/ uL Eosinophils Absolute Auto 0.5 H 0.0-0.4 - X10* 3/uL Basophils Absolute Auto 0.0 0.0-0.2 - X10*3/ uL NRBC Abs Auto 0.000 0.0-0.012 - X10*3/uL L ab:Thyroid Stimulating Hormone (Order Date - 09/13/2025) (Collection Date & Time - 09/13/2025 07:30 AM) Value Reference Range Thyroid Stimulating Hormone 1.43 0.32-4.0 - u IU/mL L ab:Lipid Panel (Order Date - 09/13/2025) (Collection Date & Time - 09/13/2025 07:30 AM) Value Reference Range Triglycerides 92 <150 - mg/dL Cholesterol 174 <200 - mg/dL LDL Cholesterol Calculated 78 <100 - mg/dL HDL Cholesterol 78 >40 - mg/dL L ab:UA ClnCatch+Micro w/rflx Cult (Order Date - 09/13/2025) (Collection Date & Time - 09/13/2025 07:30 AM) Value Reference Range Color Urine Yellow - Appearance Urine Clear - PH 5.5 5.0-9.0 - Glucose Urine UA Negative Negative - mg/dL Urine Blood Moderate (2+) A Negative - Specific [place] - Urine 1.015 1.005-1.025 - Urine Protein 100 (2+) A Neg-Trace - mg/dL Urine Ketones Negative Negative - mg/dL Nitrite Urine Negative Negative - Leukocyte Esterase Urine Negative Negative - RBC Urine 3-5 A 0-2 - /HPF WBC Urine 0-5 0-5 - /HPF Squamous Epithelial Cell Urine 0-2 0-2 - /HP F Bacteria Urine None Seen None Seen - Hyaline Casts Urine 0-2 0-2 - /LPF L ab:Comprehensive Met. Panel (Order Date - 09/13/2025) (Collection Date & Time - 09/13/2025 07:30 AM) Value Reference Range Sodium 140 135-145 - mmol/L Bilirubin Total 0.4 0.0-1.0 - mg/dL Aspartate Amino Transferase 27 5-37 - U/L Alanine Aminotransferase 17 0-40 - U/L Total Protein 7.0 6.5-8.0 - g/dL Albumin Level 4.2 3.5-5.0 - g/dL Alkaline Phosphatase 66 39-117 - U/L Potassium 4.4 3.3-5.1 - mmol/L Chloride 109 H 96-108 - mmol/L Carbon Dioxide 26 22-29 - mmol/L Anion Gap 9 L 12-20 - Blood Urea Nitrogen 25 H 9-16 - mg/dL Creatinine 1.18 0.5-1.4 - mg/dL Estimated Glomerular Filt Rate > 60 - Glucose Random 90 60-115 - mg/dL Calcium 9.1 8.4-10.2 - mg/dL * Examination: G eneral Examination: [...] SKIN: w arm and dry, no suspicious lesions. HEART: r egular rate and rhythm, S1, S2 normal, no murmurs.? LUNGS: c lear to auscultation bilaterally. ABDOMEN: s oft, nontender, nondistended, bowel sounds present, normal, no organomegaly , no masses palpable. RECTAL EXAM: n ormal tone, no external hemorrhoids, no masses palpable, prostate normal, stool guaiac negative. 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 EXTREMITIES: n o clubbing, cyanosis, or edema. NEUROLOGIC: n onfocal, motor strength normal upper and lower extremities, sensory exam intact. Assessment: * Assessment: 1. A dult general medical exam - Z00.00 (Primary) 2 . E ssential (primary) hypertension - I10 3 . P ure hypercholesterolemia - E78.00 4 .?Bilateral carotid artery disease - I77.9 5 . A cquired hypothyroidism - E03.9 6 . C olon cancer screening - Z12.11 7 . D epression screen - Z13.31 Plan: * Treatment: 2. E ssential (primary) hypertension Notes: well controlled, will continue current regiment 3. P ure hypercholesterolemia Notes: well controlled, will continue current regiment 4. B ilateral carotid artery disease Notes: had not changed in 4 years and was only minimal 5. A cquired hypothyroidism Notes: stable, will contnue current regiment 6. C olon cancer screening Notes: guaiac negative 7. D epression screen Notes: negative screen * Procedure Codes: * Follow Up: 6 Months * * Sign off status: Completed true * Provider: Naveen Gary MD Date: 11/21/2024 Generated for Raffaele lara/Aminta/eTransmitting on: 12/02/2024 08:10 AM EST History and Physical Notes * HPI (History of Present Illness) Category Sub-Category Detail Notes Category Not es Symptom(s) patient is a 75 yo male here for yearly evaluation with review of recent labs and follow up of chronic issues, is retirinng at end of year Depression Screening PHQ-9 Little inte rest or [...] warm and dry, no margaret picious lesions EXTREMITIES: no clubbing, cyanosi s, or edema MALE GENITOURINARY: no penile lesions or discharge, no testicular mass, testes descended bilaterally, 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
--- OUTSIDE RECORDS SUMMARY | 2025-10-01 08:09 | XMS_ITS | Clinical Summary ---
Author Organization [facility] Address [address] [facility] [address] [place] [address] Phone Care Team Providers Care Trust Operations Assistant Name Role Phone Teto Gary MD [...] this topic Insurance [employer] MCR Adv PPO ([phone]) [employer] MCR Adv PPO ([id number]) Care Teams Trust Operations Assistant Relationship Specialty Start Date End Date Teto Gary MD [address] [place] [address] [id number] [place], [place] PCP - General 10/21/20
--- OUTSIDE RECORDS SUMMARY | 2025-10-01 08:10 | XMS_ITS | Patient Health Record ---
Author Organization Teto Gary MD Address [address] [place], [place] [id number] Care Team Providers Care Cd Mixer Helper Name Role Phone Teto Gary Primary Care Provider Allergies Allergen (clinical drug ingredient) Drug/Non Drug Allergy documented on EMR Reaction Allergy Type Onset Date Status diphenhydramine Benadryl Unknown Drug Allergy A ctive Results Component Value Reference Range Notes Liver Panel Reviewed date:03/09/2025 04:17:25 PM Interpretation: Performing Lab:[address] [phone] Notes/Report: Bilirubin Total 0.8 0.0-1.0 mg/dL Bilirubin Direct 0.3 0.0-0.5 mg/dL Aspartate Amino Transferase 27 5-37 U/L Alanine Aminotransferase 19 0-40 U/L Total Protein 7.1 6.5-8.0 g/dL Albumin Level 4.1 3.5-5.0 g/dL Alkaline Phosphatase 66 39-117 U/L Lipid Panel with Reflex Reviewed date:03/09/2025 04:17:09 PM Interpretation: Performing Lab:[address] [place] [address] Notes/Report: Triglycerides 79 <150 mg/dL Desirable Triglyceride: [...] ff Reviewed date:09/13/2025 12:28:28 PM Interpretation: Performing Lab:[facility], [address] [place] [phone] Notes/Report: White Blood Count 6.6 4.8-10.8 X10*3/uL [...] Panel Reviewed date:09/13/2025 12:49:33 PM Interpretation: Performing Lab:[facility], [address] [place] [phone] Notes/Report: Triglycerides 92 <150 mg/dL Desirable Triglyceride: [...] t Reviewed date:09/13/2025 05:40:49 PM Interpretation: Performing Lab:[facility], [address] [place] [phone] Notes/Report: Urine, Clean Catch Color Urine Yellow Appearance Urine Clear PH 5.5 5.0-9.0 Glucose Urine UA Negative Negative mg/dL Urine Blood Moderate (2+) Negative Specific [place] - Urine 1.015 1.005-1.025 Urine Protein 100 (2+) Neg-Trace mg/dL Urine Ketones Negative Negative mg/dL Nitrite Urine Negative Negative Leukocyte Esterase Urine Negative Negative RBC Urine 3-5 0-2 /HPF WBC Urine 0-5 0-5 /HPF Squamous Epithelial Cell Urine 0-2 0-2 /HPF Bacteria Urine None Seen None Seen Hyaline Casts Urine 0-2 0-2 /LPF INR WHOLE BLOOD POC Reviewed date:10/16/2024 09:52:45 AM Interpretation: Performing Lab:[facility], [address] [place] [phone] Notes/Report: PT, INR - [facility] 3.6 0.9-1.1 METER #: [id number] INTERNATIONAL NORMALIZED RATIO (INR) REFERENCE RANGES Reference [...] OC Reviewed date:10/16/2024 09:52:53 AM Interpretation: Performing Lab:[facility], [address] [place] [phone] Notes/Report: Prothrombin Time Whole Bld POC 43.8 11.1-13.5 sec INR WHOLE BLOOD POC Reviewed date:11/07/2024 04:28:35 PM Interpretation: Performing Lab:[facility], [address] [place] [phone] Notes/Report: PT, INR - [facility] 4.4 0.9-1.1 METER #: [id number] INTERNATIONAL NORMALIZED RATIO (INR) REFERENCE RANGES Reference [...] OC Reviewed date:11/07/2024 04:28:26 PM Interpretation: Performing Lab:[facility], [address] [place] [phone] Notes/Report: Prothrombin Time Whole Bld POC 52.3 11.1-13.5 sec INR WHOLE BLOOD POC Reviewed date:11/22/2024 05:40:44 PM Interpretation: Performing Lab:[facility], [address] [place] [phone] Notes/Report: PT, INR - [facility] 1.5 0.9-1.1 METER #: [id number] Doctor Notified INTERNATIONAL NORMALIZED RATIO (INR) REFERENCE [...] OC Reviewed date:11/22/2024 05:40:26 PM Interpretation: Performing Lab:[facility], [address] [place] [phone] Notes/Report: Prothrombin Time Whole Bld POC 17.8 11.1-13.5 sec INR WHOLE BLOOD POC Reviewed date:11/24/2024 12:39:31 PM Interpretation: Performing Lab:[facility], [address] [place] [phone] Notes/Report: PT, INR - [facility] 2.6 0.9-1.1 METER #: [id number] INTERNATIONAL NORMALIZED RATIO (INR) REFERENCE RANGES Reference [...] OC Reviewed date:11/24/2024 12:35:01 PM Interpretation: Performing Lab:[facility], [address] [place] [phone] Notes/Report: Prothrombin Time Whole Bld POC 30.8 11.1-13.5 sec INR WHOLE BLOOD POC Reviewed date:12/11/2024 11:04:14 AM Interpretation: Performing Lab:[facility], [address] [place] [phone] Notes/Report: PT, INR - [facility] 3.2 0.9-1.1 METER #: [id number] INTERNATIONAL NORMALIZED RATIO (INR) REFERENCE RANGES Reference [...] OC Reviewed date:12/11/2024 12:37:20 PM Interpretation: Performing Lab:[facility], [address] [place] [phone] Notes/Report: Prothrombin Time Whole Bld POC 38.2 11.1-13.5 sec INR WHOLE BLOOD POC Reviewed date:01/01/2025 12:32:57 PM Interpretation: Performing Lab:[facility], [address] [place] [phone] Notes/Report: PT, INR - [facility] 4.6 0.9-1.1 METER #: [id number] INTERNATIONAL NORMALIZED RATIO (INR) REFERENCE RANGES Reference [...] OC Reviewed date:01/01/2025 12:33:05 PM Interpretation: Performing Lab:[facility], [address] [place] [phone] Notes/Report: Prothrombin Time Whole Bld POC 54.9 11.1-13.5 sec INR WHOLE BLOOD POC Reviewed date:01/08/2025 12:19:34 PM Interpretation: Performing Lab:[facility], [address] [place] [phone] Notes/Report: PT, INR - [facility] 1.4 0.9-1.1 METER #: [id number] INTERNATIONAL NORMALIZED RATIO (INR) REFERENCE RANGES Reference [...] OC Reviewed date:01/08/2025 12:19:26 PM Interpretation: Performing Lab:[facility], [address] [place] [phone] Notes/Report: Prothrombin Time Whole Bld POC 16.7 11.1-13.5 sec INR WHOLE BLOOD POC Reviewed date:01/15/2025 08:45:45 AM Interpretation: Performing Lab:[facility], [address] [place] [phone] Notes/Report: PT, INR - [facility] 2.0 0.9-1.1 METER #: [id number] INTERNATIONAL NORMALIZED RATIO (INR) REFERENCE RANGES Reference [...] OC Reviewed date:01/15/2025 08:45:37 AM Interpretation: Performing Lab:[facility], [address] [place] [phone] Notes/Report: Prothrombin Time Whole Bld POC 23.9 11.1-13.5 sec INR WHOLE BLOOD POC Reviewed date:02/07/2025 04:59:10 PM Interpretation: Performing Lab:[facility], [address] [place] [phone] Notes/Report: PT, INR - [facility] 3.1 0.9-1.1 METER #: [id number] INTERNATIONAL NORMALIZED RATIO (INR) REFERENCE RANGES Reference [...] OC Reviewed date:02/07/2025 04:59:01 PM Interpretation: Performing Lab:[facility], [address] [place] [phone] Notes/Report: Prothrombin Time Whole Bld POC 37.7 11.1-13.5 sec INR WHOLE BLOOD POC Reviewed date:02/19/2025 12:25:05 PM Interpretation: Performing Lab:[facility], [address] [place] [phone] Notes/Report: PT, INR - [facility] 2.9 0.9-1.1 METER #: [id number] INTERNATIONAL NORMALIZED RATIO (INR) REFERENCE RANGES Reference [...] OC Reviewed date:02/19/2025 12:25:12 PM Interpretation: Performing Lab:[facility], [address] [place] [phone] Notes/Report: Prothrombin Time Whole Bld POC 34.3 11.1-13.5 sec Hold Gold Reviewed date:03/09/2025 04:15:47 PM Interpretation: Performing Lab:[facility], [address] [place] [phone] Notes/Report: Hold Gold See Note Specimen held untested for 24 hours; Call to request Chemistry testing. INR WHOLE BLOOD POC Reviewed date:03/12/2025 08:52:01 AM Interpretation: Performing Lab:[facility], [address] [place] [phone] Notes/Report: PT, INR - [facility] 2.3 0.9-1.1 METER #: [id number] INTERNATIONAL NORMALIZED RATIO (INR) REFERENCE RANGES Reference [...] OC Reviewed date:03/12/2025 08:51:47 AM Interpretation: Performing Lab:[facility], [address] [place] [phone] Notes/Report: Prothrombin Time Whole Bld POC 27.8 11.1-13.5 sec INR WHOLE BLOOD POC Reviewed date:04/02/2025 12:25:58 PM Interpretation: Performing Lab:[facility], [address] [place] [phone] Notes/Report: PT, INR - [facility] 4.4 0.9-1.1 METER #: [id number] INTERNATIONAL NORMALIZED RATIO (INR) REFERENCE RANGES Reference [...] OC Reviewed date:04/02/2025 12:26:06 PM Interpretation: Performing Lab:[facility], [address] [place] [phone] Notes/Report: Prothrombin Time Whole Bld POC 52.3 11.1-13.5 sec INR WHOLE BLOOD POC Reviewed date:04/09/2025 01:00:49 PM Interpretation: Performing Lab:[facility], [address] [place] [phone] Notes/Report: PT, INR - [facility] 2.0 0.9-1.1 METER #: [id number] INTERNATIONAL NORMALIZED RATIO (INR) REFERENCE RANGES Reference [...] OC Reviewed date:04/09/2025 11:54:02 AM Interpretation: Performing Lab:[facility], [address] [place] [phone] Notes/Report: Prothrombin Time Whole Bld POC 24.2 11.1-13.5 sec INR WHOLE BLOOD POC Reviewed date:04/16/2025 12:38:18 PM Interpretation: Performing Lab:[facility], [address] [place] [phone] Notes/Report: PT, INR - [facility] 3.0 0.9-1.1 METER #: [id number] INTERNATIONAL NORMALIZED RATIO (INR) REFERENCE RANGES Reference [...] OC Reviewed date:04/16/2025 12:38:10 PM Interpretation: Performing Lab:[facility], [address] [place] [phone] Notes/Report: Prothrombin Time Whole Bld POC 36.0 11.1-13.5 sec INR WHOLE BLOOD POC Reviewed date:05/04/2025 09:07:14 PM Interpretation: Performing Lab:[facility], [address] [place] [phone] Notes/Report: PT, INR - [facility] 3.1 0.9-1.1 METER #: [id number] INTERNATIONAL NORMALIZED RATIO (INR) REFERENCE RANGES Reference [...] OC Reviewed date:05/04/2025 09:06:52 PM Interpretation: Performing Lab:[facility], [address] [place] [phone] Notes/Report: Prothrombin Time Whole Bld POC 36.9 11.1-13.5 sec INR WHOLE BLOOD POC Reviewed date:05/21/2025 11:57:08 AM Interpretation: Performing Lab:[facility], [address] [place] [phone] Notes/Report: PT, INR - [facility] 4.5 0.9-1.1 METER #: [id number] INTERNATIONAL NORMALIZED RATIO (INR) REFERENCE RANGES Reference [...] OC Reviewed date:05/21/2025 11:57:15 AM Interpretation: Performing Lab:[facility], [address] [place] [phone] Notes/Report: Prothrombin Time Whole Bld POC 53.7 11.1-13.5 sec INR WHOLE BLOOD POC Reviewed date:05/28/2025 11:14:53 AM Interpretation: Performing Lab:[facility] [address] [phone] Notes/Report: PT, INR - [facility] 3.0 0.9-1.1 METER #: [id number] INTERNATIONAL NORMALIZED RATIO (INR) REFERENCE RANGES Reference [...] OC Reviewed date:05/28/2025 08:28:36 AM Interpretation: Performing Lab:[address] [phone] Notes/Report: Prothrombin Time Whole Bld POC 36.1 11.1-13.5 sec INR WHOLE BLOOD POC Reviewed date:06/15/2025 02:49:16 PM Interpretation: Performing Lab:[facility], [address] [place] [phone] Notes/Report: PT, INR - [facility] 1.5 0.9-1.1 METER #: [id number] Doctor Notified INTERNATIONAL NORMALIZED RATIO (INR) REFERENCE [...] OC Reviewed date:06/15/2025 02:49:09 PM Interpretation: Performing Lab:[address] [phone] Notes/Report: Prothrombin Time Whole Bld POC 17.5 11.1-13.5 sec INR WHOLE BLOOD POC Reviewed date:06/20/2025 05:56:33 PM Interpretation: Performing Lab:[address] [phone] Notes/Report: PT, INR - [facility] 2.5 0.9-1.1 METER #: [id number] INTERNATIONAL NORMALIZED RATIO (INR) REFERENCE RANGES Reference [...] OC Reviewed date:06/20/2025 05:56:42 PM Interpretation: Performing Lab:[facility], [address] [place] [phone] Notes/Report: Prothrombin Time Whole Bld POC 29.4 11.1-13.5 sec INR WHOLE BLOOD POC Reviewed date:07/09/2025 12:47:32 PM Interpretation: Performing Lab:[facility], [address] [place] [phone] Notes/Report: PT, INR - [facility] 3.7 0.9-1.1 METER #: [id number] INTERNATIONAL NORMALIZED RATIO (INR) REFERENCE RANGES Reference [...] OC Reviewed date:07/09/2025 12:47:39 PM Interpretation: Performing Lab:[facility], [address] [place] [phone] Notes/Report: Prothrombin Time Whole Bld POC 43.9 11.1-13.5 sec INR WHOLE BLOOD POC Reviewed date:07/24/2025 05:01:48 PM Interpretation: Performing Lab:[facility], [address] [place] [phone] Notes/Report: PT, INR - [facility] 1.8 0.9-1.1 METER #: [id number] INTERNATIONAL NORMALIZED RATIO (INR) REFERENCE RANGES Reference [...] OC Reviewed date:07/24/2025 05:01:57 PM Interpretation: Performing Lab:[facility], [address] [place] [phone] Notes/Report: Prothrombin Time Whole Bld POC 21.1 11.1-13.5 sec INR WHOLE BLOOD POC Reviewed date:08/06/2025 12:32:56 PM Interpretation: Performing Lab:[facility], [address] [place] [phone] Notes/Report: PT, INR - [facility] 1.6 0.9-1.1 METER #: [id number] INTERNATIONAL NORMALIZED RATIO (INR) REFERENCE RANGES Reference [...] OC Reviewed date:08/06/2025 12:32:48 PM Interpretation: Performing Lab:[facility], [address] [place] [phone] Notes/Report: Prothrombin Time Whole Bld POC 18.8 11.1-13.5 sec INR WHOLE BLOOD POC Reviewed date:08/10/2025 04:26:39 PM Interpretation: Performing Lab:[facility], [address] [place] [phone] Notes/Report: PT, INR - [facility] 3.7 0.9-1.1 METER #: [id number] INTERNATIONAL NORMALIZED RATIO (INR) REFERENCE RANGES Reference [...] OC Reviewed date:08/10/2025 04:23:52 PM Interpretation: Performing Lab:[facility], [address] [place] [phone] Notes/Report: Prothrombin Time Whole Bld POC 44.3 11.1-13.5 sec INR WHOLE BLOOD POC Reviewed date:08/20/2025 12:46:30 PM Interpretation: Performing Lab:[address] [phone] Notes/Report: PT, INR - [facility] 2.1 0.9-1.1 METER #: [id number] INTERNATIONAL NORMALIZED RATIO (INR) REFERENCE RANGES Reference [...] OC Reviewed date:08/20/2025 12:45:08 PM Interpretation: Performing Lab:[address] [phone] Notes/Report: Prothrombin Time Whole Bld POC 25.5 11.1-13.5 sec Hold Lav - Possible Hematolo gy Reviewed date:09/13/2025 12:27:18 PM Interpretation: Performing Lab:[address] [phone] Notes/Report: Hold Lav - Possible Hematology SEE NOTE Specimen will be held untested for 8 hours. Call Hematology if testing is desired. Comprehensive Met. Panel Reviewed date:09/13/2025 02:45:55 PM Interpretation: Performing Lab:[address] [phone] Notes/Report: Sodium 140 135-145 mmol/L Potassium 4.4 [...] Antigen Reviewed date:09/13/2025 12:49:22 PM Interpretation: Performing Lab:[facility], [address] [place] [phone] Notes/Report: Prostate Specific Antigen 3.10 <0.05-4.0 ng/mL PSA methodology: [employer] i Chemiluminescent Microparticle Immunoassay (CMIA) Thyroid Stimulating Hormone Reviewed date:09/13/2025 12:48:47 PM Interpretation: Performing Lab:[address] [phone] Notes/Report: Thyroid Stimulating Hormone 1.43 0.32-4.0 uIU/ mL TSH 3rd Generation ([facility] [employer]) INR WHOLE BLOOD POC Reviewed date:09/17/2025 12:16:27 PM Interpretation: Performing Lab:[address] [phone] Notes/Report: PT, INR - [facility]ag Clinic 2.9 0.9-1.1 METER #: [id number] INTERNATIONAL NORMALIZED RATIO (INR) REFERENCE RANGES Reference [...] Prothrombin Time Whole Bld P OC Reviewed date:09/17/2025 12:16:38 PM Interpretation: Performing Lab:[facility], [address] [place] [phone] Notes/Report: Prothrombin Time Whole Bld POC 34.6 11.1-13.5 sec Reason For Referral Reason left [...] MOUTH EVERY DAY for 90 days Active Warfarin Sodium 5 MG TAKE 2 TABLETS ON WEDNESDAY, WEDNESDAY, WEDNESDAY, TAKE 2.5 TABLETS ON OTHER DAYS ORALLY ONCE A DAY 90 DAYS for 84 Active Metoprolol Succinate ER 50 MG TAKE 1 TABLET BY MOUTH EVERY DAY FOR 90 DAYS for 90 Active amLODIPine Besylate 10 MG TAKE 1 TABLET BY MOUTH EVERY DAY for 90 Active Immunizations Vaccine Route Administration [...] Problem Status W/U Status Risk Notes Problem 18859565 Prostatism (N40.0) Active confirmed Problem 06180908 Essential (prima ry) hypertension (I10) Active confirmed Problem 440128495587074 Erectile dysfunc tion due to arterial insufficiency (N52.01) Active confirmed Problem 3725541 Psoriasis (L40.9) Active confirmed Problem 887775565 Acquired hypothyroidism (E03.9) Active confirmed Problem 732572327 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) Active confirmed Problem 17976883 Alcohol abuse (F10.10) Active confirme d Problem 55978494 Heart murmur (R01.1) Active confirmed Problem 77058008 RBBB (I45.10) Active confirmed Problem 016668011 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) Active confirmed Problem 98540148 Chronic renal fa ilure, stage 3 (moderate) (N18.3) Active confirmed Problem 723980283 Pure hypercholesterolemia (E78.00) Active confirmed Problem 482909030 Other cardiac arrhythmia (I49.8) Active confirmed Problem 19062825050106 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) Active confirmed Problem 5166337277506659 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) Active confirmed Problem 091589098 Age-related inci pient cataract of both eyes (H25.093) Active confirmed Problem 673863215 Chronic kidney d isease (CKD) stage G1/A2, glomerular filtration rate (GFR) equal to or greater than 90 mL/min/1.73 square meter and albuminuria creatinine ratio between 30-299 mg/g (N18.1) Active confirmed Vital Signs Blood pressure diastolic 58 mm Hg 09/20/2025 Height 71.5 in 09/20/2025 Blood pressure systolic 130 mm Hg 09/20/2025 Weight 255 lbs 09/20/2025 BMI 35.07 kg/m2 09/20/2025 Encounters Encounter Location Date Provider Diagnosis Teto Gary MD [address] [place], [place] [id number] 03/09/2025 Teto Gary Pure hypercholestero lemia E78.00 Teto Gary MD [address] [place] [id number] 09/13/2025 Teto Gary Blood tests for rout ine general physical examination Z00.00 ; Essential (primary) hypertension I10 ; Acquired hypothyroidism E03.9 ; Pure hypercholesterolemia E78.00 and Chronic kidney disease (CKD) stage G1/A2, glomerular filtration rate (GFR) equal to or greater than 90 mL/min/1.73 square meter and albuminuria creatinine ratio between 30-299 mg/g N18.1 Teto Gary MD [address] [place] [id number] 11/13/2024 Teto Gary Mechanical heart mary ve present Z95.2 ; Mild dementia without behavioral disturbance, psychotic disturbance, mood disturbance, or anxiety, unspecified dementia type F03.A0 and Heme positive stool R19.5 Teto Gary MD [address] [place] [id number] 03/19/2025 Teto Gary Bilateral carotid ar jacque disease I77.9 ; Pure hypercholesterolemia E78.00 and Leg pain M79.606 Teto Gary MD [address] [place] [id number] 07/30/2025 Teto Gary Leg pain, left M79.6 05 Teto Gary MD [address] [place] [id number] 09/20/2025 Teto Gary Essential (primary) hypertension I10 ; Adult general medical exam Z00.00 ; Pure hypercholesterolemia E78.00 ; Bilateral carotid artery disease I77.9 ; Acquired hypothyroidism E03.9 ; Colon cancer screening Z12.11 and Depression screen Z13.31 Teto Gary MD [address] [place] [id number] 10/27/2024 Teto Gary MD [address] [place] [id number] 01/08/2025 Teto Gary MD [address] [place] [id number] 07/05/2025 Teto Gary MD [address] [place] [id number] 08/06/2025 Teto Gary MD [address] [place] [address] [id number] 09/17/2025 Teto Gary Pure hypercholestero lemia E78.00 Assessments Encounter Date Diagnosis (ICD Code) Assessment Notes Treatment Notes Treatment Clinical Notes Section Notes 03/09/2025 Pure hypercholesterolemia (ICD-10 - E78.00) 09/13/[address] ine general physical examination (ICD-10 - Z00.00) 11/13/2024 Mechanical heart mary ve present (ICD-10 [...] and if not to [facility]/ referral to [facility] 09/20/2025 Essential (primary) hypertension (ICD-10 - I10) well controlled, will continue current regiment 09/20/2025 Adult general medica l exam (ICD-10 - Z00.00) bs reviewed and discussed with patient 09/17/2025 Pure hypercholesterolemia (ICD-10 - E78.00) 09/13/2025 Essential (primary) hypertension (ICD-10 - I10) 11/13/2024 Heme positive stool (ICD-10 - R19.5) is going to go to cardiology and then get a colonoscopy 03/19/2025 Leg pain (ICD-10 - M79.606) is going to try walking and see if it gets better. if not will try stopping his statins and see if that is the cause 09/20/2025 Pure hypercholesterolemia (ICD-10 - E78.00) well controlled, will continue current regiment 09/13/2025 Acquired hypothyroid ism (ICD-10 - E03.9) 09/20/2025 Bilateral carotid artery disease (ICD-10 - I77.9) had not changed in 4 years and was only minimal 09/13/2025 Pure hypercholesterolemia (ICD-10 - E78.00) 09/20/2025 Acquired hypothyroid ism (ICD-10 - E03.9) stable, will contnue current regiment 09/13/2025 Chronic kidney disea se (CKD) stage G1/A2, glomerular filtration rate (GFR) equal to or greater than 90 mL/min/1.73 square meter and albuminuria creatinine ratio between 30-299 mg/g (ICD-10 - N18.1) 09/20/2025 Colon cancer screeni ng (ICD-10 - Z12.11) guaiac negative 09/20/2025 Depression screen (ICD-10 - Z13.31) negative screen Plan Of Treatment Pending Test Test Name Order Date Electrocardiogram (EKG) 07/27/2019 ECHO EXAM OF HEART 01/14/2016 XR CHEST 2 VIEW PA & LAT 02/15/2023 US CAROTID BILATERAL DOPPLER 08/04/2021 Comprehensive [place]. Panel Fast PSA,Total (Free>4and<10) 09/13/2025 TSH reflex Free T4 09/13/2025 CT chest wo con 05/28/2022 CT chest wo con 04/27/2022 ECHO 04/22/2020 Future Test Test Name Order Date CT CHEST NO CONTRAST 06/26/2021 Next Appt Details Provider Name:Teto kaye, 03/11/2026 07:30:00 AM, [address] [place] [address], [address], [phone], Provider Name:Teto pastorr, 03/18/2026 01:30:00 PM, [address] [place] [address], [address], [phone], Provider Name:Teto pastorr, 09/23/2026 07:00:00 AM, [address] [place] [address], [address], [phone], Provider Name:Teto kaye, 09/30/2026 01:00:00 PM, [address] [place] [address], [address], [phone], Insurance Providers Payer Name Payer Address Payer Phone Subscriber Number Group Number Insured Name Patient Relationship to Insured Coverage Start Date Coverage End Date [employer]AGE [address] [place] [id number] [employer] Self - patient is the insured [address] [address] [id number] [employer] Self - patient is the [...]
[2025-10-01 08:27] LABS: Prothrombin Time Whole Bld POC 38.0 sec (11.1-13.5); ~PT, ~INR - Anti Coag Clinic 3.2 (0.9-1.1)
--- NOTE | 2025-10-01 08:30 | MHC.OFFVISCO ---
Intake Intake Visit Reasons: Anticoagulation Allergies diphenhydramine (From BENADRYL) Allergy (Intermediate, Verified 10/01/25 08:19) RESTLESS LEGS lisinopril (LISINOPRIL) Allergy (Intermediate, Verified 10/01/25 08:19) DIZZINESS Lisiopril/HCTZ Allergy (Unknown, Uncoded 09/17/25 08:09) dizziness Medication List - Last Reconciled 10/01/25 by Nicole Mercado RN acetaminophen 975 mg PO QID PRN amlodipine 10 mg PO DAILY docusate sodium 100 mg PO BID PRN levothyroxine 150 mcg PO DAILY losartan 25 mg PO DAILY metoprolol succinate ER 50 mg PO DAILY rosuvastatin 40 mg PO DAILY tamsulosin (Flomax) 0.4 mg PO DAILY warfarin 5 mg See Protocol PO DAILY Nursing Note INR: 3.2 JUST OUR therapeutic range Medications and supplements reviewed* TOOK A FEW IBUPROFEN FOR KNEES- RISK OF BLEEDING DISCUSSED- ALSO DISCUSSED SHOULD HE DECIDE TO TAKE IT OCC HE MUST TAKE WITH FOOD TO PROTECT HIS STOMACH, ALSO INSTRUCTED OVER TOPICAL OVER THE COUNTER PAIN MED MAY BE SAFER ON STOMACH BUT CAN STILL RAISE THE INR - TO DISCUSS WITH MD AND BE CAREFUL AND EAT WEEKLY GREENS. HE STATED HE ALSO STARTED WALKING A LITTLE MORE AND ACTUALLY FEELS BETTER No changes in health, diet, medications, or supplements, Denies any signs and symptoms of bleeding or bruising or clotting. Bleeding, bruising, clotting discussed Nutritional guidance given - EAT GREENS SOON AND WEEKLY Dose: KEEP SAME7.5MG X 1 DAY/ 10MG X 6 DAYS F/U INR: 3 WEEKS PER PT REQUEST Patient verbalizes understanding of instructions given Coding Level of Care Code Est Patient Level 1 Diagnoses Current use of anticoagulant therapy Z79.01 Assessment & Plan Assessment & Plan (1) Current use of anticoagulant therapy: Code(s): Z79.01 - long-term (current) 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
== END 2025-10-01 08:46 | disposition home or self-care (01) ==
LOC: HO.ACS 08:05
PROVIDERS: PCP Internal Medicine; Visit Provider Internal Medicine Medical Oncology
DX: Z79.01 Long term (current) use of anticoagulants (principal)

== ENCOUNTER → 2025-10-01 08:05 | Outpatient (BNVA) | payer MEDICARE, MEDICAID, SELFPAY | PROVIDERS: PCP Internal Medicine; Visit Provider Internal Medicine Medical Oncology | DX: Z95.2 Presence of prosthetic heart valve (principal); Z79.01 Long term (current) use of anticoagulants; Z51.81 Encounter for therapeutic drug level monitoring | CPT/HCPCS: 85610; 99211 ==